=== PATIENT | male | born 1945 | race Caucasian/White ===

== ENCOUNTER 2016-12-17 15:11 | Emergency (ER) | payer MEDICARE, OTHER ==
[~2016-12-17 15:11] MED LIST: ACET325T9 PO; ASPI81TA2 PO; CIPR500T PO; DEXT15DR5 EACHEYE; LEVO500T38 PO; LORA0.5T96 PO; LOSA50TA6 PO; MULT-208 PO; MULT1TAB52 PO; NITR100C62 PO; OXYB5TAB7 PO; RANI150T6 PO; TAMS0.4C2 PO
[2016-12-17 15:52] VITALS: BP 135/90
[2016-12-17 17:06] LABS: BILIRUBIN,URINE NEGATIVE (NEG); GLUCOSE,URINE NEGATIVE (NEG); NITRITE,URINE NEGATIVE (NEG); PH,URINE 5.5; PROTEIN,URINE NEGATIVE (NEG-TRACE); UROBILINOGEN,URINE 0.2 mg/dL (0.2 mg/dL)
[2016-12-17 17:15] LABS: BACTERIA,URINE 0 /HPF (0-FEW); WBC,URINE 0 /HPF (0-4)
[2016-12-17] MEDS ORDERED: CIPR250T30 PO (17:28)
[2016-12-17] MEDS ORDERED: PHEN-318 PO (17:28)
--- NOTE | 2016-12-17 17:28 | PHYS DOC ---
Past Medical History Past Medical History: GERD, Hypertension, Other Additional Past Medical Histor: MR; BPH Past Surgical History: Other Additional Past Surgical Histo: hernia Alcohol Use: None Drug Use: None Adult General Chief Complaint Chief Complaint: URINARY RETENTION HPI HPI Patient is a 71 year old male who presents with complaint of urinary retention. Patient has history of enlarged prostate and intellectual disability. Patient states that since 4:00 this morning he has not been able to urinate. Patient brought to the emergency department from [facility] where he resides. Patient is accompanied by a director financial planning from the [facility]. The patient is currently taking Flomax and finasteride for treatment of enlarged prostate. Patient denies any fever. Patient states that he is having pain and distention in his abdomen. Despite taking medications patient states he has still been unable to urinate. [] Review of Systems Review of Systems Constitutional: Denies fever or chills [] Eyes: Denies change in visual acuity, redness, or eye pain [] HENT: Denies nasal congestion or sore throat [] Respiratory: Denies cough or shortness of breath [] Cardiovascular: No additional information not addressed in HPI [] GI: Abdominal pain, denies nausea, vomiting, or diarrhea [] : Urinary retention [] Musculoskeletal: Denies back pain or joint pain [] Integument: Denies rash or skin lesions [] Neurologic: Denies headache, focal weakness or sensory changes [] Allergies Allergies Allergies Coded Allergies Type Severity Reaction Last Updated Verified Cephalosporins Allergy Intermediate 07/13/15 Yes Penicillins Allergy Intermediate 07/13/15 Yes carbamazepine Allergy Intermediate 07/13/15 Yes meropenem Allergy Intermediate 07/12/15 Yes penicillamine Allergy Intermediate 07/13/15 Yes I S O L A T I O N *CONTACT* Allergy Unknown 07/11/15 Yes Physical Exam Physical Exam Constitutional: Alert, afebrile, appears in mild to moderate discomfort. [] HENT: Normocephalic, atraumatic, bilateral external ears normal, oropharynx moist, no oral exudates, nose normal. [] Eyes: PERRLA, EOMI, conjunctiva normal, no discharge. [] Neck: Normal range of motion, no tenderness, supple, no stridor. [] Cardiovascular:Heart rate regular rhythm, no murmur [] Lungs & Thorax: Bilateral breath sounds clear to auscultation [] Abdomen: Bowel sounds normal, mild lower abdominal distention, suprapubic tenderness to palpation, no pulsatile masses. [] Skin: Warm, dry, no erythema, no rash. [] Back: No tenderness, no CVA tenderness. [] Extremities: No tenderness, no cyanosis, no clubbing, ROM intact, no edema. [] Neurologic: Alert and oriented X 3, normal motor function, normal sensory function, no focal deficits noted. [] Current Patient Data Vital Signs Vital Signs Date Time Temp Pulse Resp B/P Pulse Ox O2 Delivery O2 Flow Rate FiO2 12/17/16 15:52 98.6 113 20 135/90 98 Face Tent 98.6 Lab Values Laboratory Tests Test 12/17/16 17:00 Urine Collection Type Unknown Urine Color Yellow Urine Clarity Clear Urine pH 5.5 Urine Specific [place] 1.025 Urine Protein Negativemg/dL (NEG-TRACE) Urine Glucose (UA) Negativemg/dL (NEG) Urine Ketones (Stick) 15mg/dL (NEG) Urine Blood Small (NEG) Urine Nitrite Negative (NEG) Urine Bilirubin Negative (NEG) Urine Urobilinogen Dipstick 0.2mg/dL (0.2 mg/dL) Urine Leukocyte Esterase Negative (NEG) Urine RBC 11-20/HPF (0-2) Urine WBC 0/HPF (0-4) Urine Bacteria 0/HPF (0-FEW) Urine Mucus Marked/LPF EKG EKG Not performed [] Radiology/Procedures Radiology/Procedures Limited bedside transabdominal ultrasound performed and interpreted by myself: Distended bladder, estimated volume 513 mL, no pelvic free fluid [] Course & Med Decision Making Course & Med Decision Making Pertinent Labs and Imaging studies reviewed. (See chart for details) Patient had a Ortega catheter placed by nursing staff in the emergency department with successful decompression of the bladder. Patient's urine does not reveal evidence of infection. The patient will be discharged with indwelling Ortega catheter at this time and recommended follow-up with Dr. Cole of urology in the next 5-7 days. Advised return emergency department for any worsening symptoms. Patient voiced understanding and in agreement with treatment plan. Dragon Disclaimer Dragon Disclaimer This electronic medical record was generated, in whole or in part, using a voice recognition dictation system. Departure Departure Impression: Primary Impression: Urinary retention Disposition: 01 HOME, SELF-CARE Condition: IMPROVED Referrals: KANU CHAMBERS (PCP) RACHAEL COLE DO Patient Instructions: Urinary Retention, Acute, Male Additional Instructions: Follow-up with Dr. Cole in 5-7 days. Return to the emergency department for any worsening symptoms. Scripts Phenazopyridine Hcl (Pyridium)200 Mg [id number] Mg PO TID #6 TAB Prov:LISA MORRIS MD 12/17/16 Ciprofloxacin Hcl (Cipro)250 Mg Tablet1 Tab PO BID #10 TAB Prov:LISA MORRIS MD 12/17/16 LISA MORRIS MD Dec 17, 2016 17:28
== END 2016-12-17 18:00 | disposition home or self-care (01) ==
LOC: ER 15:11
DX: R33.9 Retention of urine, unspecified (principal); K21.9 Gastro-esophageal reflux disease without esophagitis; I10 Essential (primary) hypertension; Z88.0 Allergy status to penicillin; Z88.8 Allergy status to other drugs, medicaments and biological substances; Z88.1 Allergy status to other antibiotic agents; Z91.041 Radiographic dye allergy status
CPT/HCPCS: 51702; 81001; 99284-25

== ENCOUNTER 2016-12-19 11:32 | Emergency (ER) | payer MEDICARE, OTHER ==
[~2016-12-19 11:32] MED LIST changes: +CIPR250T30 PO; +PHEN-318 PO
[2016-12-19 12:19] VITALS: BP 133/83
[2016-12-19 12:31] LABS: GLUCOSE,URINE NEGATIVE (NEG); PROTEIN,URINE >=300 mg/dL (NEG-TRACE)
[2016-12-19 12:42] LABS: BACTERIA,URINE FEW /HPF (0-FEW)
[2016-12-19 12:43] LABS: WBC,URINE 20-40 /HPF (0-4)
--- NOTE | 2016-12-19 12:58 | PHYS DOC ---
Past Medical History Past Medical History: GERD, Hypertension, Other Additional Past Medical Histor: MR; BPH Past Surgical History: Other Additional Past Surgical Histo: hernia Alcohol Use: None Drug Use: None Adult General Chief Complaint Chief Complaint: BLOOD IN URINE HPI HPI Patient is a 71 year old male presenting to the emergency department for evaluation of hematuria. Patient was seen 2 days ago in this emergency department for urinary retention and had a Ortega catheter placed. He has a history of intellectual disability and enlarged prostate for which he takes Flomax and finasteride. Dress Finisher says that he has been having increased tinge to his urine since the Ortega catheter was placed. He has not had any fevers chills nausea vomiting or other systemic symptoms. He is currently on ciprofloxacin and there is no microbiology report at this time. Dress Finisher reports that he has a follow up appointment with Dr. Prajapati the urologist at [facility] on December 25. Patient appears to be in no obvious distress with normal vital signs. Review of Systems Review of Systems Constitutional: Denies fever or chills [] GI: Denies abdominal pain, nausea, vomiting, bloody stools or diarrhea [] : Denies dysuria or hematuria [] Allergies Allergies Allergies Coded Allergies Type Severity Reaction Last Updated Verified Cephalosporins Allergy Intermediate 07/13/15 Yes Penicillins Allergy Intermediate 07/13/15 Yes carbamazepine Allergy Intermediate 07/13/15 Yes meropenem Allergy Intermediate 07/12/15 Yes penicillamine Allergy Intermediate 07/13/15 Yes I S O L A T I O N *CONTACT* Allergy Unknown 07/11/15 Yes Physical Exam Physical Exam Constitutional: Well developed, well nourished, no acute distress, non-toxic appearance. [] Cardiovascular:Heart rate regular rhythm, no murmur [] Lungs & Thorax: Bilateral breath sounds clear to auscultation [] Abdomen: Bowel sounds normal, soft, no tenderness, no masses, no pulsatile masses. [] Genitourinary exam reveals Ortega catheter in place with no erythema at the meatus. There is some penile edema distally on the shaft but there is no paraphimosis or phimosis and there is no obvious focal infection. Current Patient Data Vital Signs Vital Signs Date Time Temp Pulse Resp B/P Pulse Ox O2 Delivery O2 Flow Rate FiO2 12/19/16 12:19 83 16 133/83 98 Room Air 12/19/16 11:54 97.3 97.3 Lab Values Laboratory Tests Test 12/19/16 12:05 Urine Collection Type U cath Urine Color [place] Urine Clarity Clear Urine pH 5.0 Urine Specific [place] 1.030 Urine Protein >=300mg/dL (NEG-TRACE) Urine Glucose (UA) Negativemg/dL (NEG) Urine Ketones (Stick) mg/dL (NEG) Urine Blood (NEG) Urine Nitrite (NEG) Urine Bilirubin (NEG) Urine Urobilinogen Dipstick mg/dL (0.2 mg/dL) Urine Leukocyte Esterase (NEG) Urine RBC 11-20/HPF (0-2) Urine WBC 20-40/HPF (0-4) Urine Bacteria Few/HPF (0-FEW) Urine Mucus Mod/LPF EKG EKG [] Radiology/Procedures Radiology/Procedures [] Course & Med Decision Making Course & Med Decision Making Patient likely has urinary tract infection with possible prostatitis and he is urinating well into the Ortega catheter at this time. I do not see any reason to change the catheter as this is all likely irritation from having a Ortega placed and he is artery on antibiotics that are likely to be helpful pending the culture results. Encouraged composer teaching artist to keep the follow-up appointment and come back to the ER sooner with worsening pain fevers following emergent concerns. Dragon Disclaimer Dragon Disclaimer This electronic medical record was generated, in whole or in part, using a voice recognition dictation system. Departure Departure Impression: Primary Impression: Hematuria Additional Impression: UTI (lower urinary tract infection) Disposition: 01 HOME, SELF-CARE Condition: GOOD Referrals: KANU CHAMBERS (PCP) Patient Instructions: Hematuria, Adult Problem Qualifiers ROBERTO CARLOS WEAVER DO Dec 19, 2016 12:58
== END 2016-12-19 13:53 | disposition home or self-care (01) ==
LOC: ER 11:32
DX: N39.0 Urinary tract infection, site not specified (principal); N48.89 Other specified disorders of penis; K21.9 Gastro-esophageal reflux disease without esophagitis; I10 Essential (primary) hypertension; N40.0 Benign prostatic hyperplasia without lower urinary tract symptoms; Z88.0 Allergy status to penicillin; Z88.8 Allergy status to other drugs, medicaments and biological substances; Z88.1 Allergy status to other antibiotic agents; Z91.041 Radiographic dye allergy status
CPT/HCPCS: 81001; 87086; 99284

== ENCOUNTER → 2018-12-23 | Outpatient (CLI) | payer MEDICARE, OTHER ==
[~2018-12-23] MED LIST changes: +ASPI-630 PO; -ASPI81TA2 PO; -LEVO500T38 PO; +LEVO500T59 PO; +LOSA-73 PO; -LOSA50TA6 PO; +RANI-376 PO; -RANI150T6 PO
--- NOTE | 2018-12-23 15:59 | RAD ---
Chest, PA and Lateral: Technique: PA and lateral views of the chest were obtained. History: Cough. Comparison: 03/31/2015. Findings: Low lung volumes accentuates heart size and pulmonary vascularity. There are scattered patchy airspace opacities identified in the bilateral lungs likely atelectasis or infiltrates.Mild degenerative changes thoracic spine IMPRESSION: Scattered patchy airspace opacities identified in the bilateral lungs likely atelectasis or infiltrates. Electronically signed by: Kyree White MD (12/23/2018 3:56 PM) [facility]
== END | disposition home or self-care (01) ==
LOC: RAD 15:26
PROVIDERS: ATTEND Physician Assistant Medical
DX: R91.8 Other nonspecific abnormal finding of lung field (principal)
CPT/HCPCS: 71046

== ENCOUNTER 2019-04-06 16:58 | Inpatient (IN) | payer MEDICARE, OTHER ==
[~2019-04-06] VITALS: Ht 180.3 cm; Wt 80.4 kg
[2019-04-06 17:17] LABS: CREATININE ISTAT 0.9 mg/dL (0.5-1.4); HEMOGLOBIN ISTAT 14.3 g/dL (14-18); ION CA ISTAT 1.1 mmol/L (1.13-1.32); POTASSIUM ISTAT 4.2 mmol/L (3.5-5.0)
[2019-04-06 17:22] LABS: BASO % 0 % (0-3); EOS # 0.1 x10^3/uL (0.0-0.7); EOS % 1 % (0-3); HEMOGLOBIN 13.8 g/dL (13.0-17.5); LYMPH # 1.2 x10^3/uL (1.0-4.8); LYMPH % 13 % (24-48); MEAN CORPUSCULAR HEMOGLOBIN 31 pg (25-35); MEAN CORPUSCULAR HGB CONC 34 g/dL (31-37); MEAN CORPUSCULAR VOLUME 92 fL (79-100); MONO # 0.5 x10^3/uL (0.0-1.1); MONO % 6 % (0-9); NEUT # 7.7 x10^3/uL (1.8-7.7); NEUT % 81 % (31-73); PLATELET COUNT 231 x10^3/uL (140-400); RED BLOOD COUNT 4.48 x10^6/uL (4.30-5.70); RED CELL DISTRIBUTION WIDTH 14.8 % (11.5-14.5); WHITE BLOOD COUNT 9.6 x10^3/uL (4.0-11.0)
[2019-04-06 17:24] LABS: BILIRUBIN,URINE NEGATIVE (NEG); CLARITY,URINE CLEAR; COLOR,URINE YELLOW; NITRITE,URINE NEGATIVE (NEG); PROTEIN,URINE NEGATIVE (NEG-TRACE); UROBILINOGEN,URINE 0.2 mg/dL (0.2 mg/dL)
[2019-04-06] MEDS ORDERED: PROPOFOL 50 ML IV ONE ×2 (17:27→18:30)
[2019-04-06] MEDS ORDERED: ETOMIDATE 20 MG/10 ML VIAL. IV ONE (17:30)
[2019-04-06] MEDS ORDERED: SUCCINYLCHOLINE 200 MG/10 ML VIAL. IV ONE (17:30)
[2019-04-06 17:33] LABS: PROTHROMBIN TIME PATIENT 13.1 SEC (11.7-14.0)
[2019-04-06 17:37] LABS: CALCIUM 8.5 mg/dL (8.5-10.1); GFR 73.7; POTASSIUM 4.5 mmol/L (3.5-5.1)
[2019-04-06 17:38] LABS: BACTERIA,URINE FEW /HPF (0-FEW); RBC,URINE 0 /HPF (0-2); SQUAMOUS EPITHELIAL CELL,UR OCC /LPF
[2019-04-06 17:38] LABS: MAGNESIUM 2.2 mg/dL (1.8-2.4); PHOSPHORUS 3.7 mg/dL (2.6-4.7)
[2019-04-06 17:42] LABS: ALBUMIN 3.1 g/dL (3.4-5.0); TOTAL BILIRUBIN 0.4 mg/dL (0.2-1.0); TOTAL PROTEIN 6.3 g/dL (6.4-8.2)
[2019-04-06] MEDS ORDERED: CONTRAST GIVEN. MC PRN (17:45)
[2019-04-06] MEDS ORDERED: IOHEXOL 350 MG/ML 100 ML VIAL. IV ONE (17:45)
--- NOTE | 2019-04-06 17:55 | PHYS DOC ---
Past Medical History Past Medical History: GERD, Hypertension, Other Additional Past Medical Histor: MR; BPH (ROBERTO CARLOS PERES MD) Past Surgical History: Other Additional Past Surgical Histo: hernia (ROBERTO CARLOS PERES MD) Alcohol Use: None Drug Use: None (ROBERTO CARLOS PERES MD) Adult General Chief Complaint Chief Complaint: HYPOGLYCEMIA HPI HPI Patient is a 73-year-old male who presents to the emergency department via EMS, unresponsive. According to EMS, the patient lives in an assisted living facility, has an underlying history of mental retardation or autism, but normally is ambulatory and able to care for himself and do his own ADLs. According to report, the patient was last seen normal at about 8 AM this morning, when his medication was dropped off at his apartment, and he was administered his medication. Staff noticed this evening that his newspaper still outside his door, and went and found the patient unresponsive in bed. The patient is not able to provide any meaningful history, EMS found the patient with a blood glucose of 20, administered dextrose, via D10 IV, and upon arrival the patient's blood glucose was 311, but he did not have any meaningful improvement in his mental status. There is no external evidence of trauma. He is not a diabetic. (ROBERTO CARLOS PERES MD) Review of Systems Review of Systems To the patient's inability to provide a history. (ROBERTO CARLOS PERES MD) Current Medications Current Medications Current Medications Medications (Trade) Dose Ordered Sig/Jason Start Time Stop Time Status Last Admin Dose Admin Etomidate (Amidate) 20 mg 1X ONCE 04/06/19 17:30 04/06/19 17:31 DC 04/06/19 19:47 20 MG Info (CONTRAST GIVEN -- Rx MONITORING) 1 each PRN DAILY PRN 04/06/19 17:45 04/08/19 17:44 Iohexol (Omnipaque 350 Mg/ml) 75 ml 1X ONCE 04/06/19 17:45 04/06/19 17:46 DC 04/06/19 17:56 75 ML Naloxone HCl (Narcan) 2 mg 1X ONCE 04/06/19 18:45 04/06/19 18:46 DC 04/06/19 19:47 2 MG Propofol 50 ml @ 1.191 mls/ hr 1X ONCE 04/06/19 18:30 04/08/19 12:28 04/06/19 19:47 4.763 MLS/HR Sodium Chloride 1,000 ml @ 1,000 mls/hr 1X ONCE 04/06/19 18:00 04/06/19 18:59 DC 04/06/19 19:47 1,000 MLS/HR Succinylcholine Chloride (Anectine) 100 mg 1X ONCE 04/06/19 17:30 04/06/19 17:31 DC 04/06/19 19:47 100 MG (KIT FERRARI MD) Allergies Allergies Allergies Coded Allergies Type Severity Reaction Last Updated Verified Cephalosporins Allergy Intermediate 07/13/15 Yes Penicillins Allergy Intermediate 07/13/15 Yes carbamazepine Allergy Intermediate 07/13/15 Yes meropenem Allergy Intermediate 07/12/15 Yes penicillamine Allergy Intermediate 07/13/15 Yes I S O L A T I O N *CONTACT* Allergy Unknown 07/11/15 Yes (KIT FERRARI MD) Physical Exam Physical Exam PHYSICAL EXAM: CONSTITUTIONAL: Well developed, well nourished HEAD: normocephalic, atraumatic EENT: Pupils are 2 mm bilaterally and sluggishly reactive, Conjunctivae normal color, sclerae non-icteric; dry mucous membranes. NECK: Supple, non-tender; no meningismus. LUNGS: Lungs CTA, breathing even and unlabored. Normal air movement. Gag reflex is very weak. HEART: Regular rate and rhythm, no murmur CHEST: No deformity; non-tender ABDOMEN: The abdomen is soft, and non-tender, no masses or bruits. EXTREM: Normal ROM; no deformity, no calf tenderness. Normal pulses palpable in all extremities. There is no pedal edema. SKIN: No rash; no diaphoresis NEURO: Patient is nonresponsive, does withdraw to painful stimulus, with move ment in all 4 extremities, GCS is 6. (ROBERTO CARLOS PERES MD) Current Patient Data Vital Signs Vital Signs Date Time Temp Pulse Resp B/P (MAP) Pulse Ox O2 Delivery O2 Flow Rate FiO2 04/06/19 18:45 60 16 135/92 (106) 100 Ventilator 04/06/19 16:58 97.5 97.5 (KIT FERRARI MD) Lab Values Laboratory Tests Test 04/06/19 17:05 04/06/19 17:09 04/06/19 17:15 04/06/19 18:35 White Blood Count 9.6 x10^3/uL (4.0-11.0) Red Blood Count 4.48 x10^6/uL (4.30-5.70) Hemoglobin 13.8 g/dL (13.0-17.5) Hematocrit 41.0 % (39.0-53.0) Mean Corpuscular Volume 92 fL (79-100) Mean Corpuscular Hemoglobin 31 pg (25-35) Mean Corpuscular Hemoglobin Concent 34 g/dL (31-37) Red Cell Distribution Width 14.8 % (11.5-14.5) H Platelet Count 231 x10^3/uL (140-400) Neutrophils (%) (Auto) 81 % (31-73) H Lymphocytes (%) (Auto) 13 % (24-48) L Monocytes (%) (Auto) 6 % (0-9) Eosinophils (%) (Auto) 1 % (0-3) Basophils (%) (Auto) 0 % (0-3) Neutrophils # (Auto) 7.7 x10^3/uL (1.8-7.7) Lymphocytes # (Auto) 1.2 x10^3/uL (1.0-4.8) Monocytes # (Auto) 0.5 x10^3/uL (0.0-1.1) Eosinophils # (Auto) 0.1 x10^3/uL (0.0-0.7) Basophils # (Auto) 0.0 x10^3/uL (0.0-0.2) Prothrombin Time 13.1 SEC (11.7-14.0) Prothrombin Time INR 1.0 (0.8-1.1) Sodium Level 140 mmol/L (136-145) Potassium Level 4.5 mmol/L (3.5-5.1) Chloride Level 106 mmol/L (98-107) Carbon Dioxide Level 25 mmol/L (21-32) Anion Gap 9 (6-14) 15 mmol/L (6-14) H Blood Urea Nitrogen 19 mg/dL (8-26) Creatinine 1.0 mg/dL (0.7-1.3) Estimated GFR (Cockcroft-Gault) 73.7 BUN/Creatinine Ratio 19 (6-20) Glucose Level 313 mg/dL (70-99) H 305 mg/dL (70-99) H Lactic Acid Level 1.1 mmol/L (0.4-2.0) Calcium Level 8.5 mg/dL (8.5-10.1) Phosphorus Level 3.7 mg/dL (2.6-4.7) Magnesium Level 2.2 mg/dL (1.8-2.4) Total Bilirubin 0.4 mg/dL (0.2-1.0) Aspartate Amino Transferase (AST) 20 U/L (15-37) Alanine Aminotransferase (ALT) 25 U/L (16-63) Alkaline Phosphatase 93 U/L (46-116) Troponin I Quantitative < 0.017 ng/mL (0.000-0.055) PN-Sth-L-Type Natriuretic Peptide 1519 pg/mL (0-124) H Total Protein 6.3 g/dL (6.4-8.2) L Albumin 3.1 g/dL (3.4-5.0) L Albumin/Globulin Ratio 1.0 (1.0-1.7) Thyroid Stimulating Hormone (TSH) 1.041 uIU/mL (0.358-3.74) Free Thyroxine 0.66 ng/dL (0.76-1.46) L POC Hemoglobin 14.3 g/dL (14-18) POC Hematocrit 42 % (37-52) POC Sodium 138 mmol/L (135-145) POC Potassium 4.2 mmol/L (3.5-5.0) POC Chloride 105 mmol/L (98-110) POC Total CO2 23 mmol/L (23-32) POC Blood Urea Nitrogen 18 mg/dL (8-26) POC Creatinine 0.9 mg/dL (0.5-1.4) POC Ionized Calcium (Wilfred) 1.10 mmol/L (1.13-1.32) L Urine Collection Type Void Urine Color Yellow Urine Clarity Clear Urine pH 6.0 Urine Specific [place] 1.010 Urine Protein Negative mg/dL (NEG-TRACE) Urine Glucose (UA) 250 mg/dL (NEG) Urine Ketones (Stick) Negative mg/dL (NEG) Urine Blood Trace (NEG) Urine Nitrite Negative (NEG) Urine Bilirubin Negative (NEG) Urine Urobilinogen Dipstick 0.2 mg/dL (0.2 mg/dL) Urine Leukocyte Esterase Negative (NEG) Urine RBC 0 /HPF (0-2) Urine WBC 1-4 /HPF (0-4) Urine Squamous Epithelial Cells Occ /LPF Urine Bacteria Few /HPF (0-FEW) O2 Saturation 97 % (92-99) Arterial Blood pH 7.37 (7.35-7.45) Arterial Blood pCO2 at Patient Temp 36 mmHg (35-46) Arterial Blood pO2 at Patient Temp 102 mmHg (65-108) Arterial Blood HCO3 21 mmol/L (21-28) Arterial Blood Base Excess -4 mmol/L (-3-3) L FiO2 40 Laboratory Tests 04/06/19 17:05 Laboratory Tests 04/06/19 17:05 04/06/19 17:09 (KIT FERRARI MD) EKG EKG [Normal sinus rhythm at a rate of 69 beats for minute, leftward axis, right bundle-branch block, otherwise normal intervals, without acute ischemic ST/T changes. (ROBERTO CARLOS PERES MD) Radiology/Procedures Radiology/Procedures ER physician preliminary chest x-ray interpretation: Endotracheal tube and oral gastric tube in good position. No obvious infiltrate. (ROBERTO CARLOS PERES MD) Radiology/Procedures [facility] [address] [place], [place] [id number] IMAGING REPORT Signed PATIENT: ARI CM ACCOUNT: [id number] : 1945 LOCATION: ER AGE: 73 SEX: M EXAM STATUS: REG ER ORD. PHYSICIAN: ROBERTO CARLOS PERES MD REASON: AMS PROCEDURE: CT ANGIOGRAPHY HEAD AND NECK Exam: CTA head and neck INDICATION: Altered mental status TECHNIQUE: Sequential axial images through the head and neck obtained following the administration of 75 mL of Omni 350 IV contrast. Sagittal and coronal reformatted images were reconstructed from the axial data and reviewed. 3-D reformatted images were reconstructed from the axial data and reviewed. Comparisons: CT head without contrast same day FINDINGS: CTA neck: Visualized portions of the thoracic aorta are unremarkable. Right common carotid artery is patent without evidence of stenosis, occlusion or aneurysm. Intimal calcified atherosclerotic plaque at the origin of the right internal carotid artery without significant stenosis. Cervical segment of the right internal carotid artery is patent without evidence of stenosis, occlusion or aneurysm. Left common carotid artery is patent without evidence of stenosis, occlusion or aneurysm. Cervical segment of the left internal carotid artery is patent without evidence of stenosis, occlusion or aneurysm. Right vertebral artery is patent to the basilar confluence. Left vertebral artery is patent to the basilar confluence. Enteric tube and endotracheal tube are noted. Small bilateral pleural effusions with increased interstitial markings at the visualized lung apices. CTA HEAD: Mild calcified atherosclerotic plaque cavernous segment of the right internal carotid artery without significant stenosis. Right MCA is patent. Right GIOVANA is patent. Mild calcified atherosclerotic plaque at the cavernous segment of the left internal carotid artery without significant stenosis. Left MCA is patent. Left GIOVANA is patent. Basilar artery is patent without evidence of stenosis, occlusion or aneurysm. Major branch vessels arising off of the basilar artery are patent proximally. CINDER PITMAN's are patent bilaterally. IMPRESSION: 1. No large vessel occlusion. 2. Minimal patchy chronic plaque at the origin of the right internal carotid artery without significant stenosis. 3. Minimal calcified atherosclerotic plaque at the cavernous segments of the right and left internal carotid arteries bilaterally without significant stenosis. Exposure: One or more of the following in the visualized dose reduction techniques were utilized for this examination: 1. Automated exposure control 2. Adjustment of the MA and/or KV according to patient size 3. Use of iterative of reconstructive technique Electronically signed by: Mike Stark MD (04/06/2019 6:40 PM) [facility] DICTATED and SIGNED BY: MIKE STARK MD DATE: 04/06/19 1840 [facility] [address] [place] [address] IMAGING REPORT Signed PATIENT: ARI CM ACCOUNT: [id number] : 1945 LOCATION: ER AGE: 73 SEX: M EXAM STATUS: REG ER ORD. PHYSICIAN: ROBERTO CARLOS PEERS MD REASON: AMS PROCEDURE: CT HEAD WO CONTRAST Exam: CT head INDICATION: Altered mental status TECHNIQUE: Sequential axial images through the head were obtained without the administration of IV contrast. Comparisons: None FINDINGS: No focal parenchymal lesion or hemorrhage is identified. There is no midline shift or sulcal effacement. Patchy hypodensity noted within the periventricular white matter. The ventricular system is within normal limits without compression hydrocephalus. The basal cisterns are well maintained. No acute fracture. Mucosal thickening of the left maxillary sinus. IMPRESSION: 1. Patchy hypodensity within the periventricular white matter which is age indeterminate and may represent chronic ischemic change. This would be better evaluated with MRI. 2. Sinus disease described above. Exposure: One or more of the following in the visualized dose reduction techniques were utilized for this examination: 1. Automated exposure control 2. Adjustment of the MA and/or KV according to patient size Use of iterative of reconstructive technique Electronically signed by: Mike Stark MD (04/06/2019 6:31 PM) [facility] DICTATED and SIGNED BY: MIKE STARK MD DATE: 04/06/191830 [facility] [address] [place] [address] IMAGING REPORT Signed PATIENT: ARI CM ACCOUNT: [id number] : 1945 LOCATION: ER AGE: 73 SEX: M EXAM STATUS: REG ER ORD. PHYSICIAN: ROBERTO CARLOS PERES MD REASON: AMS PROCEDURE: PORTABLE CHEST 1V Exam: Chest one view INDICATION: Altered mental status TECHNIQUE: Frontal view of chest Comparisons: None FINDINGS: Endotracheal tube tip approximately 3 cm above the akil. Enteric tube traverses below the diaphragm distal tip in the left upper quadrant likely within stomach. Sidehole is likely the level of the GE junction. The cardiomediastinal silhouette and pulmonary vessels are within normal limits. The lung and pleural spaces are clear. IMPRESSION: 1. Lines and tubes described above. Enteric tube side hole likely at the level of the GE junction. Recommend advancement. 2. No acute pulmonary process Electronically signed by: Mike Stark MD (04/06/2019 6:41 PM) [facility] DICTATED and SIGNED BY: MIKE STARK MD DATE: 04/06/191840 (KIT FERRARI MD) Course & Med Decision Making Course & Med Decision Making Pertinent Labs and Imaging studies reviewed. (See chart for details) []6:00 PM: CT and final disposition are pending currently. Clinical suspicion is concerning for an acute stroke, with secondary hypoglycemia. The fact that the patient's mental status did not improve after blood glucose was corrected is concerning. Patient care will be turned over to Dr. Ferrari at shift change, report given, disposition pending. CRITICAL CARE TIME: [45] Minutes, excluding any procedures and care of other patients. INTUBATION NOTE: The patient was preoxygenated, initially, I attempted to intubate the patient without any medication, but the patient's vocal cords spasms around the endotracheal tube, preventing passage. The patient was preoxygenated again, and intubated without difficulty after administration of etomidate and succinylcholine, 20 mg and 100 mg, with a 7.5 endotracheal tube, with good color change on CO2 detector, breath sounds bilaterally, and chest rise. Chest x-ray showed good position of the endotracheal tube. (ROBERTO CARLOS PERES MD) Course & Med Decision Making Patient did not have large vessel disease without needs for transfer to another hospital. Patient requiring admission for further evaluation and treatment. Discussed with Dr. Menard who is in agreement with admission. Discussed findings and plan with patient and family, who acknowledge understanding and agreement. Dr. Menard presented to emergency room and evaluated the patient. 2204: Patient primary care physician is Dr. Reyes who admitted this patient to Dr. Moran. Dr. Duran was informed at [address] Queen on-call hospitalist was informed about change of plan at 2212. (KIT FERRARI MD) Dragon Disclaimer Dragon Disclaimer This electronic medical record was generated, in whole or in part, using a voice recognition dictation system. (ROBERTO CARLOS PERES MD) Departure Departure Impression: Primary Impression: Altered level of consciousness Additional Impression: Hyperglycemia Disposition: ADMITTED INPATIENT (at 1843) Admitting Physician: [facility] (Dr. Menard accepted admission at 1840) (KIT FERRARI MD) Condition: GUARDED Referrals: [facility] (PCP) Problem Qualifiers ROBERTO CARLOS PERES MD Apr 06, 2019 17:55 KIT FERRARI MD Apr 06, 2019 18:56
[2019-04-06] MEDS ORDERED: IV NORMAL SALINE 1000ML BAG 1,000 ML IV ONE (18:00)
--- NOTE | 2019-04-06 18:34 | RAD ---
Exam: CT head INDICATION: Altered mental status TECHNIQUE: Sequential axial images through the head were obtained without the administration of IV contrast. Comparisons: None FINDINGS: No focal parenchymal lesion or hemorrhage is identified. There is no midline shift or sulcal effacement. Patchy hypodensity noted within the periventricular white matter. The ventricular system is within normal limits without compression hydrocephalus. The basal cisterns are well maintained. No acute fracture. Mucosal thickening of the left maxillary sinus. IMPRESSION: 1. Patchy hypodensity within the periventricular white matter which is age indeterminate and may represent chronic ischemic change. This would be better evaluated with MRI. 2. Sinus disease described above. Exposure: One or more of the following in the visualized dose reduction techniques were utilized for this examination: 1. Automated exposure control 2. Adjustment of the MA and/or KV according to patient size Use of iterative of reconstructive technique Electronically signed by: Mike Torrez MD (04/06/2019 6:31 PM) [facility]
[2019-04-06] MEDS ORDERED: NALOXONE 2 MG/2 ML DISP.SYRIN. ONE (18:38)
[2019-04-06 18:42] LABS: BASE EXCESS ABG -4 mmol/L (-3-3); HCO3 ABG 21 mmol/L (21-28); PCO2 ABG 36 mmHg (35-46); PO2 ABG 102 mmHg (65-108); SAT O2 ABG 97 % (92-99)
--- NOTE | 2019-04-06 18:42 | RAD ---
Exam: CTA head and neck INDICATION: Altered mental status TECHNIQUE: Sequential axial images through the head and neck obtained following the administration of 75 mL of Omni 350 IV contrast. Sagittal and coronal reformatted images were reconstructed from the axial data and reviewed. 3-D reformatted images were reconstructed from the axial data and reviewed. Comparisons: CT head without contrast same day FINDINGS: CTA neck: Visualized portions of the thoracic aorta are unremarkable. Right common carotid artery is patent without evidence of stenosis, occlusion or aneurysm. Intimal calcified atherosclerotic plaque at the origin of the right internal carotid artery without significant stenosis. Cervical segment of the right internal carotid artery is patent without evidence of stenosis, occlusion or aneurysm. Left common carotid artery is patent without evidence of stenosis, occlusion or aneurysm. Cervical segment of the left internal carotid artery is patent without evidence of stenosis, occlusion or aneurysm. Right vertebral artery is patent to the basilar confluence. Left vertebral artery is patent to the basilar confluence. Enteric tube and endotracheal tube are noted. Small bilateral pleural effusions with increased interstitial markings at the visualized lung apices. CTA HEAD: Mild calcified atherosclerotic plaque cavernous segment of the right internal carotid artery without significant stenosis. Right MCA is patent. Right GIOVANA is patent. Mild calcified atherosclerotic plaque at the cavernous segment of the left internal carotid artery without significant stenosis. Left MCA is patent. Left GIOVANA is patent. Basilar artery is patent without evidence of stenosis, occlusion or aneurysm. Major branch vessels arising off of the basilar artery are patent proximally. LEGAL RESEARCHER's are patent bilaterally. IMPRESSION: 1. No large vessel occlusion. 2. Minimal patchy chronic plaque at the origin of the right internal carotid artery without significant stenosis. 3. Minimal calcified atherosclerotic plaque at the cavernous segments of the right and left internal carotid arteries bilaterally without significant stenosis. Exposure: One or more of the following in the visualized dose reduction techniques were utilized for this examination: 1. Automated exposure control 2. Adjustment of the MA and/or KV according to patient size 3. Use of iterative of reconstructive technique Electronically signed by: Mike Torrez MD (04/06/2019 6:40 PM) [facility]
--- NOTE | 2019-04-06 18:44 | RAD ---
Exam: Chest one view INDICATION: Altered mental status TECHNIQUE: Frontal view of chest Comparisons: None FINDINGS: Endotracheal tube tip approximately 3 cm above the akil. Enteric tube traverses below the diaphragm distal tip in the left upper quadrant likely within stomach. Sidehole is likely the level of the GE junction. The cardiomediastinal silhouette and pulmonary vessels are within normal limits. The lung and pleural spaces are clear. IMPRESSION: 1. Lines and tubes described above. Enteric tube side hole likely at the level of the GE junction. Recommend advancement. 2. No acute pulmonary process Electronically signed by: Mike Torrez MD (04/06/2019 6:41 PM) [facility]
[2019-04-06] MEDS ORDERED: NALOXONE 2 MG/2 ML DISP.SYRIN. IV ONE (18:45)
[2019-04-06 18:46] LABS: FIO2 ABG 40
--- NOTE | 2019-04-06 19:55 | PDOC1 ---
History and Physical Date of Admission Date of Admission DATE: 04/06/19 TIME: 19:49 Identification/Chief Complaint Chief Complaint low BS, unresponsive at SNU Source Source: Caregiver, Chart review, Patient History of Present Illness History of Present Illness 73 [address], SNU resident, currently intubated and sedated, was confused and hypoglycemic BS 30s at SNU, Ws intubated at our ER bec apparently did not have a gag. 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 Patchy hypodensity within the periventricular white matter which is age indeterminate and may represent chronic ischemic change. This would be better evaluated with MRI. 2. Sinus disease described above. CT Angio head: 1. No large vessel occlusion. 2. Minimal patchy chronic plaque at the origin of the right internal carotid artery without significant stenosis. 3. Minimal calcified atherosclerotic plaque at the cavernous segments of the right and left internal carotid arteries bilaterally without significant stenosis. NOw intuabted and sedated under propofol Past Medical History Cardiovascular: HTN GI: GERD Renal/: UTI, Benign prostatic enlarg., Hematuria, Other Past Surgical History Past Surgical History: Other Family History Family History: Family History Unknown Social History Smoke: No ALCOHOL: none Drugs: None Current Problem List Problem List Problems Medical Problems: (1) Altered level of consciousness Status: Acute (2) Hyperglycemia Status: Acute Current Medications Current Medications Current Medications Etomidate (Amidate) 20 mg 1X ONCE IV ; Start 04/06/19 at 17:30; Stop 04/06/19 at 17:31; Status DC Succinylcholine Chloride (Anectine) 100 mg 1X ONCE IV ; Start 04/06/19 at 17:30; Stop 04/06/19 at 17:31; Status DC Propofol 50 ml @ As Directed STK-MED ONCE IV ; Start 04/06/19 at 17:27; Stop 04/06/19 at 17:28; Status DC Iohexol (Omnipaque 350 Mg/ml) 75 ml 1X ONCE IV Last administered on 04/06/19at 17:56; Start 04/06/19 at 17:45; Stop 04/06/19 at 17:46; Status DC Info (CONTRAST GIVEN -- Rx MONITORING) 1 each PRN DAILY PRN MC SEE COMMENTS; Start 04/06/19 at 17:45; Stop 04/08/19 at 17:44 Sodium Chloride 1,000 ml @ 1,000 mls/hr 1X ONCE IV ; Start 04/06/19 at 18:00; Stop 04/06/19 at 18:59; Status DC Propofol 50 ml @ 1.191 mls/ hr 1X ONCE IV ; Start 04/06/19 at 18:30; Stop 04/08/19 at 12:28 Naloxone HCl (Narcan) 2 mg STK-MED ONCE .ROUTE ; Start 04/06/19 at 18:38; Stop 04/06/19 at 18:38; Status DC Naloxone HCl (Narcan) 2 mg 1X ONCE IV ; Start 04/06/19 at 18:45; Stop 04/06/19 at 18:46; Status DC Sodium Chloride 1,000 ml @ 125 mls/hr Q8H IV ; Start 04/06/19 at 19:00; Stop 04/07/19 at 18:59 Active Scripts Active Pyridium (Phenazopyridine Hcl) 200 Mg Tablet 200 Mg PO TID Cipro (Ciprofloxacin Hcl) 250 Mg Tablet 1 Tab PO BID Ciprofloxacin Hcl 500 Mg Tablet 500 Mg PO BID Reported Ativan (Lorazepam) 0.5 Mg Tablet 0.5 Mg PO HS Tamsulosin Hcl 0.4 Mg Cap.er.24h 0.4 Mg PO DAILY Multi-Day Vitamins (Multivitamin) 1 Each Tablet 1 Tab PO DAILY Tylenol (Acetaminophen) 325 Mg Tablet 2 Tab PO BID PRN Losartan Potassium 50 Mg Tablet 1 Tab PO DAILY Zantac (Ranitidine Hcl) 150 Mg Tablet 1 Tab PO DAILY Aspirin 81 Mg Tab.chew 1 Tab PO DAILY Allergies Allergies: Coded Allergies: Cephalosporins (Verified Allergy, Intermediate, 07/13/15) Penicillins (Verified Allergy, Intermediate, 07/13/15) carbamazepine (Verified Allergy, Intermediate, 07/13/15) meropenem (Verified Allergy, Intermediate, 07/12/15) BETA LACTAMS penicillamine (Verified Allergy, Intermediate, 07/13/15) I S O L A T I O N *CONTACT* (Verified Allergy, Unknown, 07/11/15) mrsa + ROS Review of System intubated, sedated Physical Exam General: No acute distress HEENT: Atraumatic, PERRLA Lungs: Clear to auscultation, Normal air movement Heart: S1S2, RRR, no thrills, no rubs, no gallops, no murmurs Cardiovascular: S1 Abdomen: Normal bowel sounds, Soft, No tenderness, No hepatosplenomegaly, No masses Male Genitals Exam: normal genitalia, normal prostate Rectal Exam: not examined Extremities: No clubbing, No cyanosis, No edema, Normal pulses, No te nderness/swelling Skin: No rashes, No breakdown, No significant lesion Neuro: Normal gait, Normal speech, Strength at 5/5 X4 ext, Normal tone, Sensation intact, Cranial nerves 3-12 NL, Reflexes 2+ Psych/Mental Status: Mental status NL, Mood NL Vitals Vitals Vital Signs Date Time Temp Pulse Resp B/P (MAP) Pulse Ox O2 Delivery O2 Flow Rate FiO2 04/06/19 19:32 100 Ventilator 04/06/19 19:15 58 16 108/66 (80) 04/06/19 16:58 97.5 97.5 Labs Labs Laboratory Tests Test 04/06/19 17:05 04/06/19 17:09 04/06/19 17:15 04/06/19 18:35 White Blood Count 9.6 x10^3/uL (4.0-11.0) Red Blood Count 4.48 x10^6/uL (4.30-5.70) Hemoglobin 13.8 g/dL (13.0-17.5) Hematocrit 41.0 % (39.0-53.0) Mean Corpuscular Volume 92 fL (79-100) Mean Corpuscular Hemoglobin 31 pg (25-35) Mean Corpuscular Hemoglobin Concent 34 g/dL (31-37) Red Cell Distribution Width 14.8 % (11.5-14.5) Platelet Count 231 x10^3/uL (140-400) Neutrophils (%) (Auto) 81 % (31-73) Lymphocytes (%) (Auto) 13 % (24-48) Monocytes (%) (Auto) 6 % (0-9) Eosinophils (%) (Auto) 1 % (0-3) Basophils (%) (Auto) 0 % (0-3) Neutrophils # (Auto) 7.7 x10^3/uL (1.8-7.7) Lymphocytes # (Auto) 1.2 x10^3/uL (1.0-4.8) Monocytes # (Auto) 0.5 x10^3/uL (0.0-1.1) Eosinophils # (Auto) 0.1 x10^3/uL (0.0-0.7) Basophils # (Auto) 0.0 x10^3/uL (0.0-0.2) Prothrombin Time 13.1 SEC (11.7-14.0) Prothromb Time International Ratio 1.0 (0.8-1.1) Sodium Level 140 mmol/L (136-145) Potassium Level 4.5 mmol/L (3.5-5.1) Chloride Level 106 mmol/L (98-107) Carbon Dioxide Level 25 mmol/L (21-32) Anion Gap 9 (6-14) 15 mmol/L (6-14) Blood Urea Nitrogen 19 mg/dL (8-26) Creatinine 1.0 mg/dL (0.7-1.3) Estimated GFR (Cockcroft-Gault) 73.7 BUN/Creatinine Ratio 19 (6-20) Glucose Level 313 mg/dL (70-99) 305 mg/dL (70-99) Lactic Acid Level 1.1 mmol/L (0.4-2.0) Calcium Level 8.5 mg/dL (8.5-10.1) Phosphorus Level 3.7 mg/dL (2.6-4.7) Magnesium Level 2.2 mg/dL (1.8-2.4) Total Bilirubin 0.4 mg/dL (0.2-1.0) Aspartate Amino Transf (AST/SGOT) 20 U/L (15-37) Alanine Aminotransferase (ALT/SGPT) 25 U/L (16-63) Alkaline Phosphatase 93 U/L (46-116) Troponin I Quantitative < 0.017 ng/mL (0.000-0.055) IN-Zmd-R-Type Natriuretic Peptide 1519 pg/mL (0-124) Total Protein 6.3 g/dL (6.4-8.2) Albumin 3.1 g/dL (3.4-5.0) Albumin/Globulin Ratio 1.0 (1.0-1.7) Thyroid Stimulating Hormone (TSH) 1.041 uIU/mL (0.358-3.74) Free Thyroxine 0.66 ng/dL (0.76-1.46) Bedside Hemoglobin 14.3 g/dL (14-18) Bedside Hematocrit 42 % (37-52) Bedside Sodium 138 mmol/L (135-145) Bedside Potassium 4.2 mmol/L (3.5-5.0) Bedside Chloride 105 mmol/L (98-110) Bedside Total CO2 23 mmol/L (23-32) Bedside Blood Urea Nitrogen 18 mg/dL (8-26) Bedside Creatinine 0.9 mg/dL (0.5-1.4) Bedside Ionized Calcium (Wilfred) 1.10 mmol/L (1.13-1.32) Urine Collection Type Void Urine Color Yellow Urine Clarity Clear Urine pH 6.0 Urine Specific [place] 1.010 Urine Protein Negative mg/dL (NEG-TRACE) Urine Glucose (UA) 250 mg/dL (NEG) Urine Ketones (Stick) Negative mg/dL (NEG) Urine Blood Trace (NEG) Urine Nitrite Negative (NEG) Urine Bilirubin Negative (NEG) Urine Urobilinogen Dipstick 0.2 mg/dL (0.2 mg/dL) Urine Leukocyte Esterase Negative (NEG) Urine RBC 0 /HPF (0-2) Urine WBC 1-4 /HPF (0-4) Urine Squamous Epithelial Cells Occ /LPF Urine Bacteria Few /HPF (0-FEW) O2 Saturation 97 % (92-99) Arterial Blood pH 7.37 (7.35-7.45) Arterial Blood pCO2 at Patient Temp 36 mmHg (35-46) Arterial Blood pO2 at Patient Temp 102 mmHg (65-108) Arterial Blood HCO3 21 mmol/L (21-28) Arterial Blood Base Excess -4 mmol/L (-3-3) FiO2 40 Laboratory Tests Test 04/06/19 17:05 04/06/19 17:09 04/06/19 17:15 04/06/19 18:35 White Blood Count 9.6 x10^3/uL (4.0-11.0) Red Blood Count 4.48 x10^6/uL (4.30-5.70) Hemoglobin 13.8 g/dL (13.0-17.5) Hematocrit 41.0 % (39.0-53.0) Mean Corpuscular Volume 92 fL (79-100) Mean Corpuscular Hemoglobin 31 pg (25-35) Mean Corpuscular Hemoglobin Concent 34 g/dL (31-37) Red Cell Distribution Width 14.8 % (11.5-14.5) Platelet Count 231 x10^3/uL (140-400) Neutrophils (%) (Auto) 81 % (31-73) Lymphocytes (%) (Auto) 13 % (24-48) Monocytes (%) (Auto) 6 % (0-9) Eosinophils (%) (Auto) 1 % (0-3) Basophils (%) (Auto) 0 % (0-3) Neutrophils # (Auto) 7.7 x10^3/uL (1.8-7.7) Lymphocytes # (Auto) 1.2 x10^3/uL (1.0-4.8) Monocytes # (Auto) 0.5 x10^3/uL (0.0-1.1) Eosinophils # (Auto) 0.1 x10^3/uL (0.0-0.7) Basophils # (Auto) 0.0 x10^3/uL (0.0-0.2) Prothrombin Time 13.1 SEC (11.7-14.0) Prothromb Time International Ratio 1.0 (0.8-1.1) Sodium Level 140 mmol/L (136-145) Potassium Level 4.5 mmol/L (3.5-5.1) Chloride Level 106 mmol/L (98-107) Carbon Dioxide Level 25 mmol/L (21-32) Anion Gap 9 (6-14) 15 mmol/L (6-14) Blood Urea Nitrogen 19 mg/dL (8-26) Creatinine 1.0 mg/dL (0.7-1.3) Estimated GFR (Cockcroft-Gault) 73.7 BUN/Creatinine Ratio 19 (6-20) Glucose Level 313 mg/dL (70-99) 305 mg/dL (70-99) Lactic Acid Level 1.1 mmol/L (0.4-2.0) Calcium Level 8.5 mg/dL (8.5-10.1) Phosphorus Level 3.7 mg/dL (2.6-4.7) Magnesium Level 2.2 mg/dL (1.8-2.4) Total Bilirubin 0.4 mg/dL (0.2-1.0) Aspartate Amino Transf (AST/SGOT) 20 U/L (15-37) Alanine Aminotransferase (ALT/SGPT) 25 U/L (16-63) Alkaline Phosphatase 93 U/L (46-116) Troponin I Quantitative < 0.017 ng/mL (0.000-0.055) MF-Knx-T-Type Natriuretic Peptide 1519 pg/mL (0-124) Total Protein 6.3 g/dL (6.4-8.2) Albumin 3.1 g/dL (3.4-5.0) Albumin/Globulin Ratio 1.0 (1.0-1.7) Thyroid Stimulating Hormone (TSH) 1.041 uIU/mL (0.358-3.74) Free Thyroxine 0.66 ng/dL (0.76-1.46) Bedside Hemoglobin 14.3 g/dL (14-18) Bedside Hematocrit 42 % (37-52) Bedside Sodium 138 mmol/L (135-145) Bedside Potassium 4.2 mmol/L (3.5-5.0) Bedside Chloride 105 mmol/L (98-110) Bedside Total CO2 23 mmol/L (23-32) Bedside Blood Urea Nitrogen 18 mg/dL (8-26) Bedside Creatinine 0.9 mg/dL (0.5-1.4) Bedside Ionized Calcium (Wilfred) 1.10 mmol/L (1.13-1.32) Urine Collection Type Void Urine Color Yellow Urine Clarity Clear Urine pH 6.0 Urine Specific [place] 1.010 Urine Protein Negative mg/dL (NEG-TRACE) Urine Glucose (UA) 250 mg/dL (NEG) Urine Ketones (Stick) Negative mg/dL (NEG) Urine Blood Trace (NEG) Urine Nitrite Negative (NEG) Urine Bilirubin Negative (NEG) Urine Urobilinogen Dipstick 0.2 mg/dL (0.2 mg/dL) Urine Leukocyte Esterase Negative (NEG) Urine RBC 0 /HPF (0-2) Urine WBC 1-4 /HPF (0-4) Urine Squamous Epithelial Cells Occ /LPF Urine Bacteria Few /HPF (0-FEW) O2 Saturation 97 % (92-99) Arterial Blood pH 7.37 (7.35-7.45) Arterial Blood pCO2 at Patient Temp 36 mmHg (35-46) Arterial Blood pO2 at Patient Temp 102 mmHg (65-108) Arterial Blood HCO3 21 mmol/L (21-28) Arterial Blood Base Excess -4 mmol/L (-3-3) FiO2 40 VTE Prophylaxis Ordered VTE Prophylaxis Devices: Yes VTE Pharmacological Prophylaxi: Yes Assessment/Plan Assessment/Plan HYPOGLYCEMIA causing MINIMAL responsiveness, intubated for airway protection (no gag apparently?) GERD, BPH, HTN - stable HYPOTENSION, post intubation, fluid responsive Inc AGAP (mild 15) NO UTI NO HCAP FUL CODE\ CTA head./neck: 1. No large vessel occlusion. 2. Minimal patchy chronic plaque at the origin of the right internal carotid artery without significant stenosis. 3. Minimal calcified atherosclerotic plaque at the cavernous segments of the right and left internal carotid arteries bilaterally without significant stenosis. PLAn: IVF, vent bundle. PULmo ICU bed, 2 mN Hopefully might be able to extubate really soon, ie tmr SSI mod dose MAy check [id number] NO need for neuro consult PPI and dvt in this vented pt Seen at ER NO family at bedside PAWAN CHERY MD Apr 06, 2019 19:55
[2019-04-06] MEDS ORDERED: DEXTROSE 50% 25 GM / 50ML DISP.SYRIN. IV PRN (20:00)
[2019-04-06] MEDS ORDERED: ACETAMINOPHEN 325 MG TABLET. PO PRN (20:00)
[2019-04-06] MEDS ORDERED: IV DEXTROSE 5% 250 ML BAG. IV PRN (20:00)
[2019-04-06] MEDS: LORazepam 0.5 MG TABLET PO SCH (21:00)
[2019-04-06 21:45] VITALS: BP 132/74
[2019-04-06 22:15] VITALS: BP 122/80
[2019-04-06 22:30] VITALS: BP 117/73
[2019-04-06 22:45] VITALS: BP 115/73
[2019-04-06 23:00] VITALS: BP 101/74
[2019-04-06] MEDS: PROPOFOL 100 ML IV PRN (23:00)
[2019-04-07] VITALS (24 sets, daily range): BP systolic 86–128; BP diastolic 61–79
[2019-04-07] MEDS ORDERED: PROPOFOL 100 ML IV ONE (01:11)
[2019-04-07] MEDS: IV NORMAL SALINE 1000ML BAG 1,000 ML IV SCH ×4 (01:15→17:20)
[2019-04-07] MEDS: ENOXAPARIN 40 MG/0.4 ML SYRINGE. SQ SCH ×2 (01:16→21:13)
--- NOTE | 2019-04-07 05:52 | EKG ---
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
[2019-04-07] MEDS: INSULIN LISPRO 300 UNITS/3 ML VIAL. SQ SCH ×4 (08:00→23:58)
[2019-04-07] MEDS: ASPIRIN CHEWABLE 81 MG TABLET. PO SCH (08:25)
[2019-04-07] MEDS: MULTIVITAMIN with MINERAL TABLET. PO SCH (08:25)
[2019-04-07] MEDS: TAMSULOSIN 0.4 MG CAP.ER.24H. PO SCH (08:25)
[2019-04-07] MEDS: PANTOPRAZOLE IV PUSH 40 MG VIAL. IVP SCH (08:25)
[2019-04-07 08:46] LABS: BASE EXCESS ABG -2 mmol/L (-3-3); HCO3 ABG 20 mmol/L (21-28); PCO2 ABG 26 mmHg (35-46); PO2 ABG 110 mmHg (65-108); SAT O2 ABG 98 % (92-99)
[2019-04-07 08:49] LABS: CALCIUM 7.9 mg/dL (8.5-10.1); CREATININE 0.9 mg/dL (0.7-1.3); GFR 82.9; POTASSIUM 3.6 mmol/L (3.5-5.1)
[2019-04-07 08:52] LABS: MAGNESIUM 1.9 mg/dL (1.8-2.4); PHOSPHORUS 2.9 mg/dL (2.6-4.7)
[2019-04-07 08:59] LABS: FIO2 ABG 40
[2019-04-07] MEDS: PROPOFOL 100 ML IV PRN ×3 (10:10→23:59)
[2019-04-07] MEDS ORDERED: ADENOSINE 6 MG/2 ML VIAL. IV ONE ×2 (11:20→11:30)
--- NOTE | 2019-04-07 11:27 | PDOC2 ---
CARDIAC CONSULT DATE OF CONSULT Date of Consult DATE: 04/07/19 TIME: 10:57 REASON FOR CONSULT Reason for Consult: SVT REFERRING PHYSICIAN Referring Physician: Sailaja SOURCE Source: Chart review HISTORY OF PRESENT ILLNESS HISTORY OF PRESENT ILLNESS This is a 74 yo male admitted for unresponsiveness. He resides in an assisted living facility and one of the staff went to his room and noted him on the bed unresponsive. EMS arrived and noted his BG at 20 and was given D50 but his mentation remains poor. Due to his poor mentation he was then intubated and placed on vent for airway protection. Upon admission he was noted with SVT with one episode in ICU lasting about 3 minutes per staff. I witnessed this and respo nded well with adenosine x1. No prior cardiac hx per chart review and no hx of diabetes or any medication that would promote hypoglycemia. Also no hx of VTE, CVA but significant for mental retardation and autism. PAST MEDICAL HISTORY Cardiovascular: HTN CENTRAL NERVOUS SYSTEM: Other (Mental retardation) GI: GERD Musculoskeletal: Osteoarthritis Renal/: UTI, Benign prostatic enlarg. PAST SURGICAL HISTORY Past Surgical History: Other (TURP; ligia fundoplication) FAMILY HISTORY Family History: Family History Unknown SOCIAL HISTORY Smoke: No ALCOHOL: none Drugs: None Lives: Alone (assited living) CURRENT MEDICATIONS CURRENT MEDICATIONS Current Medications Medications (Trade) Dose Ordered Sig/Jason Route PRN Reason Start Time Stop Time Status Last Admin Dose Admin Etomidate (Amidate) 20 mg 1X ONCE IV 04/06/19 17:30 04/06/19 17:31 DC 04/06/19 19:47 Succinylcholine Chloride (Anectine) 100 mg 1X ONCE IV 04/06/19 17:30 04/06/19 17:31 DC 04/06/19 19:47 Iohexol (Omnipaque 350 Mg/ml) 75 ml 1X ONCE IV 04/06/19 17:45 04/06/19 17:46 DC 04/06/19 17:56 Sodium Chloride 1,000 ml @ 1,000 mls/hr 1X ONCE IV 04/06/19 18:00 04/06/19 18:59 DC 04/06/19 19:47 Propofol 50 ml @ 1.191 mls/ hr 1X ONCE IV 04/06/19 18:30 04/08/19 12:28 04/06/19 19:47 Naloxone HCl (Narcan) 2 mg 1X ONCE IV 04/06/19 18:45 04/06/19 18:46 DC 04/06/19 19:47 Sodium Chloride 1,000 ml @ 125 mls/hr Q8H IV 04/06/19 19:00 04/07/19 18:59 04/07/19 08:28 Pantoprazole Sodium (PROTONIX VIAL for IV PUSH) 40 mg DAILYAC IVP 04/07/19 07:30 04/07/19 08:25 Enoxaparin Sodium (Lovenox 40mg Syringe) 40 mg Q24H SQ 04/06/19 21:00 04/07/19 01:17 Aspirin (Children'S Aspirin) 81 mg DAILY PO 04/07/19 09:00 04/07/19 08:25 Tamsulosin HCl (Flomax) 0.4 mg DAILY PO 04/07/19 09:00 04/07/19 08:25 Multivitamins (Thera M Plus) 1 tab DAILY PO 04/07/19 09:00 04/07/19 08:25 Propofol 100 ml @ 1.164 mls/ hr CONT PRN IV SEDATION 04/07/19 02:15 04/07/19 10:10 ALLERGIES ALLERGIES: Coded Allergies: Cephalosporins (Verified Allergy, Intermediate, 07/13/15) Penicillins (Verified Allergy, Intermediate, 07/13/15) carbamazepine (Verified Allergy, Intermediate, 07/13/15) meropenem (Verified Allergy, Intermediate, 07/12/15) BETA LACTAMS penicillamine (Verified Allergy, Intermediate, 07/13/15) I S O L A T I O N *CONTACT* (Verified Allergy, Unknown, 07/11/15) mrsa + ROS Review of System unreliable- intubated and vented PHYSICAL EXAM General: Other (sedated, intubated) HEENT: Atraumatic, Mucous membr. moist/pink Lungs: Clear to auscultation, Other (intubated with vent) Heart: Regular rate (SR), Normal S1, Normal S2, Other (2/6 systolic murmur to LLS border) Abdomen: Soft Extremities: No cyanosis, No edema Skin: No breakdown, No significant lesion Neuro: Other (sedated) MUSCULOSKELETAL: Osteoarthritic changes both hands VITALS/I&O VITALS/I&O: Vital Signs Date Time Temp Pulse Resp B/P (MAP) Pulse Ox O2 Delivery O2 Flow Rate FiO2 04/07/19 10:00 79 16 100/66 (77) 99 Ventilator 04/07/19 07:00 98.8 98.8 I & O 04/06/19 04/06/19 04/07/19 14:59 22:59 06:59 Intake Total 1000 ml 600 ml Output Total 150 ml 1350 ml Balance 850 ml -750 ml LABS Lab: Laboratory Tests Test 04/06/19 17:05 04/06/19 17:09 04/06/19 17:15 04/06/19 18:35 White Blood Count 9.6 x10^3/uL (4.0-11.0) Red Blood Count 4.48 x10^6/uL (4.30-5.70) Hemoglobin 13.8 g/dL (13.0-17.5) Hematocrit 41.0 % (39.0-53.0) Mean Corpuscular Volume 92 fL (79-100) Mean Corpuscular Hemoglobin 31 pg (25-35) Mean Corpuscular Hemoglobin Concent 34 g/dL (31-37) Red Cell Distribution Width 14.8 % (11.5-14.5) H Platelet Count 231 x10^3/uL (140-400) Neutrophils (%) (Auto) 81 % (31-73) H Lymphocytes (%) (Auto) 13 % (24-48) L Monocytes (%) (Auto) 6 % (0-9) Eosinophils (%) (Auto) 1 % (0-3) Basophils (%) (Auto) 0 % (0-3) Neutrophils # (Auto) 7.7 x10^3/uL (1.8-7.7) Lymphocytes # (Auto) 1.2 x10^3/uL (1.0-4.8) Monocytes # (Auto) 0.5 x10^3/uL (0.0-1.1) Eosinophils # (Auto) 0.1 x10^3/uL (0.0-0.7) Basophils # (Auto) 0.0 x10^3/uL (0.0-0.2) Prothrombin Time 13.1 SEC (11.7-14.0) Prothrombin Time INR 1.0 (0.8-1.1) Sodium Level 140 mmol/L (136-145) Potassium Level 4.5 mmol/L (3.5-5.1) Chloride Level 106 mmol/L (98-107) Carbon Dioxide Level 25 mmol/L (21-32) Anion Gap 9 (6-14) 15 mmol/L (6-14) H Blood Urea Nitrogen 19 mg/dL (8-26) Creatinine 1.0 mg/dL (0.7-1.3) Estimated GFR (Cockcroft-Gault) 73.7 BUN/Creatinine Ratio 19 (6-20) Glucose Level 313 mg/dL (70-99) H 305 mg/dL (70-99) H Lactic Acid Level 1.1 mmol/L (0.4-2.0) Calcium Level 8.5 mg/dL (8.5-10.1) Phosphorus Level 3.7 mg/dL (2.6-4.7) Magnesium Level 2.2 mg/dL (1.8-2.4) Total Bilirubin 0.4 mg/dL (0.2-1.0) Aspartate Amino Transferase (AST) 20 U/L (15-37) Alanine Aminotransferase (ALT) 25 U/L (16-63) Alkaline Phosphatase 93 U/L (46-116) Troponin I Quantitative < 0.017 ng/mL (0.000-0.055) PZ-Bau-W-Type Natriuretic Peptide 1519 pg/mL (0-124) H Total Protein 6.3 g/dL (6.4-8.2) L Albumin 3.1 g/dL (3.4-5.0) L Albumin/Globulin Ratio 1.0 (1.0-1.7) Thyroid Stimulating Hormone (TSH) 1.041 uIU/mL (0.358-3.74) Free Thyroxine 0.66 ng/dL (0.76-1.46) L POC Hemoglobin 14.3 g/dL (14-18) POC Hematocrit 42 % (37-52) POC Sodium 138 mmol/L (135-145) POC Potassium 4.2 mmol/L (3.5-5.0) POC Chloride 105 mmol/L (98-110) POC Total CO2 23 mmol/L (23-32) POC Blood Urea Nitrogen 18 mg/dL (8-26) POC Creatinine 0.9 mg/dL (0.5-1.4) POC Ionized Calcium (Wilfred) 1.10 mmol/L (1.13-1.32) L Urine Collection Type Void Urine Color Yellow Urine Clarity Clear Urine pH 6.0 Urine Specific [place] 1.010 Urine Protein Negative mg/dL (NEG-TRACE) Urine Glucose (UA) 250 mg/dL (NEG) Urine Ketones (Stick) Negative mg/dL (NEG) Urine Blood Trace (NEG) Urine Nitrite Negative (NEG) Urine Bilirubin Negative (NEG) Urine Urobilinogen Dipstick 0.2 mg/dL (0.2 mg/dL) Urine Leukocyte Esterase Negative (NEG) Urine RBC 0 /HPF (0-2) Urine WBC 1-4 /HPF (0-4) Urine Squamous Epithelial Cells Occ /LPF Urine Bacteria Few /HPF (0-FEW) O2 Saturation 97 % (92-99) Arterial Blood pH 7.37 (7.35-7.45) Arterial Blood pCO2 at Patient Temp 36 mmHg (35-46) Arterial Blood pO2 at Patient Temp 102 mmHg (65-108) Arterial Blood HCO3 21 mmol/L (21-28) Arterial Blood Base Excess -4 mmol/L (-3-3) L FiO2 40 Test 04/06/19 21:28 04/06/19 22:40 04/07/19 03:43 04/07/19 08:10 Glucose (Fingerstick) 73 mg/dL (70-99) 79 mg/dL (70-99) 92 mg/dL (70-99) Sodium Level 145 mmol/L (136-145) Potassium Level 3.6 mmol/L (3.5-5.1) Chloride Level 112 mmol/L (98-107) H Carbon Dioxide Level 23 mmol/L (21-32) Anion Gap 10 (6-14) Blood Urea Nitrogen 16 mg/dL (8-26) Creatinine 0.9 mg/dL (0.7-1.3) Estimated GFR (Cockcroft-Gault) 82.9 Glucose Level 103 mg/dL (70-99) H Calcium Level 7.9 mg/dL (8.5-10.1) L Phosphorus Level 2.9 mg/dL (2.6-4.7) Magnesium Level 1.9 mg/dL (1.8-2.4) Test 04/07/19 08:40 O2 Saturation 98 % (92-99) Arterial Blood pH 7.50 (7.35-7.45) H Arterial Blood pCO2 at Patient Temp 26 mmHg (35-46) L Arterial Blood pO2 at Patient Temp 110 mmHg (65-108) H Arterial Blood HCO3 20 mmol/L (21-28) L Arterial Blood Base Excess -2 mmol/L (-3-3) FiO2 40 Laboratory Tests 04/06/19 17:05 Laboratory Tests 04/06/19 17:05 04/06/19 17:09 04/07/19 08:10 ASSESSMENT/PLAN ASSESSMENT/PLAN 1. Acute respiratory failure: intubated/vent for airway protection 2. Metabolic encephalopathy: found unresponsive at facility with BG 20. Head CTA negative so far. 3. Suspect syncope with noted hypoglycemia: seizure is another possibility as hypoglycemia would induce this 4. Hypoglycemic reaction: no hx of DM 5. Hx of mental retardation 6. 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 No prior hx. Recommendations 1. Await TTE for further recommendation 2. Adenosine given and converted to SR. Start on low dose cardizem IR. Hold home losartan. No BB as this would mask hypoglycemia symptoms. 3. Supportive care. NELI MARSHALL [employer] ARCHITECT [employer] PLANNER Apr 07, 2019 11:27
--- NOTE | 2019-04-07 11:45 | NUR ---
1121 pt was in psvt at a rate of 150. stimulated pt with pain and verbal, but unable to self revert out of rhythm. Quita vergara seeing pt. pt given adenosine 6 mg iv rapidly via left ac saline lock. pt converted back to sr with pvc's rate in 80's. Cardiology to order po cardizem for pt.
--- NOTE | 2019-04-07 11:50 | PDOC ---
PULMONARY PROGRESS NOTES Vitals Vital Signs Date Time Temp Pulse Resp B/P (MAP) Pulse Ox O2 Delivery O2 Flow Rate FiO2 04/07/19 11:00 99.4 75 16 110/68 (82) 99 Ventilator 99.4 Cardiovascular: S1 Labs Laboratory Tests Test 04/06/19 17:05 04/06/19 17:09 04/06/19 17:15 04/06/19 18:35 White Blood Count 9.6 x10^3/uL (4.0-11.0) Red Blood Count 4.48 x10^6/uL (4.30-5.70) Hemoglobin 13.8 g/dL (13.0-17.5) Hematocrit 41.0 % (39.0-53.0) Mean Corpuscular Volume 92 fL (79-100) Mean Corpuscular Hemoglobin 31 pg (25-35) Mean Corpuscular Hemoglobin Concent 34 g/dL (31-37) Red Cell Distribution Width 14.8 % (11.5-14.5) Platelet Count 231 x10^3/uL (140-400) Neutrophils (%) (Auto) 81 % (31-73) Lymphocytes (%) (Auto) 13 % (24-48) Monocytes (%) (Auto) 6 % (0-9) Eosinophils (%) (Auto) 1 % (0-3) Basophils (%) (Auto) 0 % (0-3) Neutrophils # (Auto) 7.7 x10^3/uL (1.8-7.7) Lymphocytes # (Auto) 1.2 x10^3/uL (1.0-4.8) Monocytes # (Auto) 0.5 x10^3/uL (0.0-1.1) Eosinophils # (Auto) 0.1 x10^3/uL (0.0-0.7) Basophils # (Auto) 0.0 x10^3/uL (0.0-0.2) Prothrombin Time 13.1 SEC (11.7-14.0) Prothromb Time International Ratio 1.0 (0.8-1.1) Sodium Level 140 mmol/L (136-145) Potassium Level 4.5 mmol/L (3.5-5.1) Chloride Level 106 mmol/L (98-107) Carbon Dioxide Level 25 mmol/L (21-32) Anion Gap 9 (6-14) 15 mmol/L (6-14) Blood Urea Nitrogen 19 mg/dL (8-26) Creatinine 1.0 mg/dL (0.7-1.3) Estimated GFR (Cockcroft-Gault) 73.7 BUN/Creatinine Ratio 19 (6-20) Glucose Level 313 mg/dL (70-99) 305 mg/dL (70-99) Lactic Acid Level 1.1 mmol/L (0.4-2.0) Calcium Level 8.5 mg/dL (8.5-10.1) Phosphorus Level 3.7 mg/dL (2.6-4.7) Magnesium Level 2.2 mg/dL (1.8-2.4) Total Bilirubin 0.4 mg/dL (0.2-1.0) Aspartate Amino Transf (AST/SGOT) 20 U/L (15-37) Alanine Aminotransferase (ALT/SGPT) 25 U/L (16-63) Alkaline Phosphatase 93 U/L (46-116) Troponin I Quantitative < 0.017 ng/mL (0.000-0.055) PS-Tev-C-Type Natriuretic Peptide 1519 pg/mL (0-124) Total Protein 6.3 g/dL (6.4-8.2) Albumin 3.1 g/dL (3.4-5.0) Albumin/Globulin Ratio 1.0 (1.0-1.7) Thyroid Stimulating Hormone (TSH) 1.041 uIU/mL (0.358-3.74) Free Thyroxine 0.66 ng/dL (0.76-1.46) Bedside Hemoglobin 14.3 g/dL (14-18) Bedside Hematocrit 42 % (37-52) Bedside Sodium 138 mmol/L (135-145) Bedside Potassium 4.2 mmol/L (3.5-5.0) Bedside Chloride 105 mmol/L (98-110) Bedside Total CO2 23 mmol/L (23-32) Bedside Blood Urea Nitrogen 18 mg/dL (8-26) Bedside Creatinine 0.9 mg/dL (0.5-1.4) Bedside Ionized Calcium (Wilfred) 1.10 mmol/L (1.13-1.32) Urine Collection Type Void Urine Color Yellow Urine Clarity Clear Urine pH 6.0 Urine Specific Hammond 1.010 Urine Protein Negative mg/dL (NEG-TRACE) Urine Glucose (UA) 250 mg/dL (NEG) Urine Ketones (Stick) Negative mg/dL (NEG) Urine Blood Trace (NEG) Urine Nitrite Negative (NEG) Urine Bilirubin Negative (NEG) Urine Urobilinogen Dipstick 0.2 mg/dL (0.2 mg/dL) Urine Leukocyte Esterase Negative (NEG) Urine RBC 0 /HPF (0-2) Urine WBC 1-4 /HPF (0-4) Urine Squamous Epithelial Cells Occ /LPF Urine Bacteria Few /HPF (0-FEW) O2 Saturation 97 % (92-99) Arterial Blood pH 7.37 (7.35-7.45) Arterial Blood pCO2 at Patient Temp 36 mmHg (35-46) Arterial Blood pO2 at Patient Temp 102 mmHg (65-108) Arterial Blood HCO3 21 mmol/L (21-28) Arterial Blood Base Excess -4 mmol/L (-3-3) FiO2 40 Test 04/06/19 21:28 04/06/19 22:40 04/07/19 03:43 04/07/19 08:10 Glucose (Fingerstick) 73 mg/dL (70-99) 79 mg/dL (70-99) 92 mg/dL (70-99) Sodium Level 145 mmol/L (136-145) Potassium Level 3.6 mmol/L (3.5-5.1) Chloride Level 112 mmol/L (98-107) Carbon Dioxide Level 23 mmol/L (21-32) Anion Gap 10 (6-14) Blood Urea Nitrogen 16 mg/dL (8-26) Creatinine 0.9 mg/dL (0.7-1.3) Estimated GFR (Cockcroft-Gault) 82.9 Glucose Level 103 mg/dL (70-99) Calcium Level 7.9 mg/dL (8.5-10.1) Phosphorus Level 2.9 mg/dL (2.6-4.7) Magnesium Level 1.9 mg/dL (1.8-2.4) Test 04/07/19 08:40 04/07/19 11:27 O2 Saturation 98 % (92-99) Arterial Blood pH 7.50 (7.35-7.45) Arterial Blood pCO2 at Patient Temp 26 mmHg (35-46) Arterial Blood pO2 at Patient Temp 110 mmHg (65-108) Arterial Blood HCO3 20 mmol/L (21-28) Arterial Blood Base Excess -2 mmol/L (-3-3) FiO2 40 Glucose (Fingerstick) 91 mg/dL (70-99) Laboratory Tests Test 04/06/19 17:05 04/06/19 17:09 04/06/19 17:15 04/06/19 18:35 White Blood Count 9.6 x10^3/uL (4.0-11.0) Red Blood Count 4.48 x10^6/uL (4.30-5.70) Hemoglobin 13.8 g/dL (13.0-17.5) Hematocrit 41.0 % (39.0-53.0) Mean Corpuscular Volume 92 fL (79-100) Mean Corpuscular Hemoglobin 31 pg (25-35) Mean Corpuscular Hemoglobin Concent 34 g/dL (31-37) Red Cell Distribution Width 14.8 % (11.5-14.5) Platelet Count 231 x10^3/uL (140-400) Neutrophils (%) (Auto) 81 % (31-73) Lymphocytes (%) (Auto) 13 % (24-48) Monocytes (%) (Auto) 6 % (0-9) Eosinophils (%) (Auto) 1 % (0-3) Basophils (%) (Auto) 0 % (0-3) Neutrophils # (Auto) 7.7 x10^3/uL (1.8-7.7) Lymphocytes # (Auto) 1.2 x10^3/uL (1.0-4.8) Monocytes # (Auto) 0.5 x10^3/uL (0.0-1.1) Eosinophils # (Auto) 0.1 x10^3/uL (0.0-0.7) Basophils # (Auto) 0.0 x10^3/uL (0.0-0.2) Prothrombin Time 13.1 SEC (11.7-14.0) Prothromb Time International Ratio 1.0 (0.8-1.1) Sodium Level 140 mmol/L (136-145) Potassium Level 4.5 mmol/L (3.5-5.1) Chloride Level 106 mmol/L (98-107) Carbon Dioxide Level 25 mmol/L (21-32) Anion Gap 9 (6-14) 15 mmol/L (6-14) Blood Urea Nitrogen 19 mg/dL (8-26) Creatinine 1.0 mg/dL (0.7-1.3) Estimated GFR (Cockcroft-Gault) 73.7 BUN/Creatinine Ratio 19 (6-20) Glucose Level 313 mg/dL (70-99) 305 mg/dL (70-99) Lactic Acid Level 1.1 mmol/L (0.4-2.0) Calcium Level 8.5 mg/dL (8.5-10.1) Phosphorus Level 3.7 mg/dL (2.6-4.7) Magnesium Level 2.2 mg/dL (1.8-2.4) Total Bilirubin 0.4 mg/dL (0.2-1.0) Aspartate Amino Transf (AST/SGOT) 20 U/L (15-37) Alanine Aminotransferase (ALT/SGPT) 25 U/L (16-63) Alkaline Phosphatase 93 U/L (46-116) Troponin I Quantitative < 0.017 ng/mL (0.000-0.055) TD-Ecr-W-Type Natriuretic Peptide 1519 pg/mL (0-124) Total Protein 6.3 g/dL (6.4-8.2) Albumin 3.1 g/dL (3.4-5.0) Albumin/Globulin Ratio 1.0 (1.0-1.7) Thyroid Stimulating Hormone (TSH) 1.041 uIU/mL (0.358-3.74) Free Thyroxine 0.66 ng/dL (0.76-1.46) Bedside Hemoglobin 14.3 g/dL (14-18) Bedside Hematocrit 42 % (37-52) Bedside Sodium 138 mmol/L (135-145) Bedside Potassium 4.2 mmol/L (3.5-5.0) Bedside Chloride 105 mmol/L (98-110) Bedside Total CO2 23 mmol/L (23-32) Bedside Blood Urea Nitrogen 18 mg/dL (8-26) Bedside Creatinine 0.9 mg/dL (0.5-1.4) Bedside Ionized Calcium (Wilfred) 1.10 mmol/L (1.13-1.32) Urine Collection Type Void Urine Color Yellow Urine Clarity Clear Urine pH 6.0 Urine Specific Hammond 1.010 Urine Protein Negative mg/dL (NEG-TRACE) Urine Glucose (UA) 250 mg/dL (NEG) Urine Ketones (Stick) Negative mg/dL (NEG) Urine Blood Trace (NEG) Urine Nitrite Negative (NEG) Urine Bilirubin Negative (NEG) Urine Urobilinogen Dipstick 0.2 mg/dL (0.2 mg/dL) Urine Leukocyte Esterase Negative (NEG) Urine RBC 0 /HPF (0-2) Urine WBC 1-4 /HPF (0-4) Urine Squamous Epithelial Cells Occ /LPF Urine Bacteria Few /HPF (0-FEW) O2 Saturation 97 % (92-99) Arterial Blood pH 7.37 (7.35-7.45) Arterial Blood pCO2 at Patient Temp 36 mmHg (35-46) Arterial Blood pO2 at Patient Temp 102 mmHg (65-108) Arterial Blood HCO3 21 mmol/L (21-28) Arterial Blood Base Excess -4 mmol/L (-3-3) FiO2 40 Test 04/06/19 21:28 04/06/19 22:40 04/07/19 03:43 04/07/19 08:10 Glucose (Fingerstick) 73 mg/dL (70-99) 79 mg/dL (70-99) 92 mg/dL (70-99) Sodium Level 145 mmol/L (136-145) Potassium Level 3.6 mmol/L (3.5-5.1) Chloride Level 112 mmol/L (98-107) Carbon Dioxide Level 23 mmol/L (21-32) Anion Gap 10 (6-14) Blood Urea Nitrogen 16 mg/dL (8-26) Creatinine 0.9 mg/dL (0.7-1.3) Estimated GFR (Cockcroft-Gault) 82.9 Glucose Level 103 mg/dL (70-99) Calcium Level 7.9 mg/dL (8.5-10.1) Phosphorus Level 2.9 mg/dL (2.6-4.7) Magnesium Level 1.9 mg/dL (1.8-2.4) Test 04/07/19 08:40 04/07/19 11:27 O2 Saturation 98 % (92-99) Arterial Blood pH 7.50 (7.35-7.45) Arterial Blood pCO2 at Patient Temp 26 mmHg (35-46) Arterial Blood pO2 at Patient Temp 110 mmHg (65-108) Arterial Blood HCO3 20 mmol/L (21-28) Arterial Blood Base Excess -2 mmol/L (-3-3) FiO2 40 Glucose (Fingerstick) 91 mg/dL (70-99) Medications Active Scripts Medications Dose Route/Sig Max Daily Dose Days Date Category Pyridium (Phenazopyridine Hcl) 200 Mg Tablet 200 Mg PO TID 12/17/16 Rx Cipro (Ciprofloxacin Hcl) 250 Mg Tablet 1 Tab PO BID 12/17/16 Rx Ciprofloxacin Hcl 500 Mg Tablet 500 Mg PO BID 07/13/15 Rx Ativan (Lorazepam) 0.5 Mg Tablet 0.5 Mg PO HS 07/11/15 Reported Tamsulosin Hcl 0.4 Mg Cap.er.24h 0.4 Mg PO DAILY 05/08/15 Reported Multi-Day Vitamins (Multivitamin) 1 Each Tablet 1 Tab PO DAILY 04/17/15 Reported Tylenol (Acetaminophen) 325 Mg Tablet 2 Tab PO BID PRN 02/07/15 Reported Losartan Potassium 50 Mg Tablet 1 Tab PO DAILY 02/07/15 Reported Zantac (Ranitidine Hcl) 150 Mg Tablet 1 Tab PO DAILY 02/07/15 Reported Aspirin 81 Mg Tab.chew 1 Tab PO DAILY 02/07/15 Reported Impression . FULL NOTE DICTATED RESP FAILURE SEC TO MET ENCEPHALOPATHY HYPOGLYCEMIA WILL CONTINUE SUPPORT CARD CONSULTED THANKS RAKESH DICKINSON MD Apr 07, 2019 11:50
[2019-04-07] MEDS: dilTIAZem HCL 30 MG TABLET PO SCH ×2 (13:28→21:20)
[2019-04-07] MEDS: MINERAL OIL/PETROLATUM,WHITE OPHTH OINT 3.5GM TUBE. OU PRN (13:58)
--- NOTE | 2019-04-07 14:53 | CARD ---
MR#: [id number] Date of Study: 04/07/2019 Ordering Physician: NELI MARSHALL, Referring Physician: NELI MARSHALL, Tech: Felicitas Brennan APPROVED REPORT EXAM: Two-dimensional and M-mode echocardiogram with Doppler and color Doppler. Other Information Quality : Average INDICATION Superventricular Tachycardia, Sepsis RISK FACTORS Hypertension 2D DIMENSIONS Left Atrium(2D)3.7 (1.6-4.0cm)IVSd1.3 (0.7-1.1cm) Aortic Root(2D)3.0 (2.0-3.7cm)LVDd5.0 (3.9-5.9cm) LVOT Diameter2.1 (1.8-2.4cm)PWd1.3 (0.7-1.1cm) LVDs3.9 (2.5-4.0cm)FS (%) 21.6 % SV52.1 ml Aortic Valve AoV Peak Carlos Alberto.328.9cm/sAoV VTI74.7cm AO Peak GR.43.3mmHgLVOT VTI 15.91cm AO Mean GR.35mmHg Mitral Valve MV E Ttyztcjx18.2cm/sMV DECEL [id number] MV A Dyqgudja90.5cm/sE/A Ratio0.5 TDI Lateral E' P. V6.18cm/sMedial E' P. V4.76cm/s E/Lateral E'6.7E/Medial E'8.7 Tricuspid Valve TR P. Lrmqmxhz756td/sRAP [id number] TR Peak Gr.75shFpYZUH31agVg Pulmonary Vein S1 Dzewkiig33.2cm/sS2 Jfrfmwhq27.13cm/s D2 Ndxilkif76.1cm/sPVa [id number] LEFT VENTRICLE The left ventricle is normal size. There is mild concentric left ventricular hypertrophy. The left ve ntricular systolic function is normal and the ejection fraction is within normal range. The Ejection Fraction is 55-60%. There is normal LV segmental wall motion. Transmitral Doppler flow pattern is Gra de I-abnormal relaxation pattern. RIGHT VENTRICLE The right ventricle is normal size. There is normal right ventricular wall thickness. The right ventr icular systolic function is normal. ATRIA The left atrium size is normal. The right atrium size is normal. The interatrial septum is intact wit h no evidence for an atrial septal defect or patent foramen ovale as noted on 2-D or Doppler imaging. AORTIC VALVE The aortic valve is calcified and displays decreased opening. Doppler and Color Flow revealed mild ao rtic regurgitation. Calculated aortic maximum pressure gradient of 44 mmHg and mean pressure gradient of 35 mmHg. Doppler and color-flow analysis revealed moderate aortic stenosis. MITRAL VALVE The mitral valve is normal in structure and function. There is no evidence of mitral valve prolapse. There is no mitral valve stenosis. Doppler and Color-flow revealed trace mitral regurgitation. TRICUSPID VALVE The tricuspid valve is normal in structure and function. Doppler and Color Flow revealed trace tricus pid regurgitation with an estimated PAP of 30 mmHg. There is no tricuspid valve stenosis. PULMONIC VALVE The pulmonary valve is normal in structure and function. Doppler and Color Flow revealed mild pulmoni c valvular regurgitation. GREAT VESSELS The aortic root is normal in size. The IVC is normal in size and collapses >50% with inspiration. PERICARDIAL EFFUSION There is no evidence of significant pericardial effusion. Critical Notification Critical Value: No <Conclusion> The left ventricle is normal size. The left ventricular systolic function is normal and the ejection fraction is within normal range. The Ejection Fraction is 55-60%. There is mild concentric left ventricular hypertrophy. The aortic valve is calcified and displays decreased opening. Calculated aortic maximum pressure gradient of 44 mmHg and mean pressure gradient of 35 mmHg. Doppler and color-flow analysis revealed moderate aortic stenosis. Doppler and Color Flow revealed mild aortic regurgitation. Doppler and Color-flow revealed trace mitral regurgitation. Doppler and Color Flow revealed trace tricuspid regurgitation with an estimated PAP of 30 mmHg. Signed by : Thuan Bear MD Electronically Approved : 04/07/2019 14:52:44
--- NOTE | 2019-04-07 15:46 | PDOC ---
PROGRESS NOTES Subjective Subjective pt of dr Martin,transferred to my service today Objective Objective Vital Signs Date Time Temp Pulse Resp B/P (MAP) Pulse Ox O2 Delivery O2 Flow Rate FiO2 04/07/19 15:35 99 Ventilator 04/07/19 15:00 99.1 80 16 96/66 (76) 99.1 Intake and Output 04/07/19 07:00 Intake Total 1600 ml Output Total 1540 ml Balance 60 ml Intake IV Total 1600 ml Output Urine Total 1540 ml Physical Exam Physical Exam orally intubated On Vent and propofol sedation Abdomen: Soft Heart: Regular rate (SR), Normal S1, Normal S2, Other (2/6 systolic murmur to LLS border) Extremities: No cyanosis, No edema General: Other (sedated, intubated) HEENT: Atraumatic, Mucous membr. moist/pink Lungs: Clear to auscultation, Other (intubated with vent) MUSCULOSKELETAL: Osteoarthritic changes both hands Neuro: Other (sedated) Skin: No breakdown, No significant lesion COMMENT otto Diagnosis Problem List Problems Medical Problems: (1) Altered level of consciousness Status: Acute (2) BPH (benign prostatic hyperplasia) Status: Chronic (3) GERD (gastroesophageal reflux disease) Status: Chronic (4) HTN (hypertension) Status: Chronic (5) Hyperglycemia Status: Acute (6) Hypoglycemia Status: Acute Assessment Assessment Problems Medical Problems: (1) Altered level of consciousness Status: Acute (2) BPH (benign prostatic hyperplasia) Status: Chronic (3) GERD (gastroesophageal reflux disease) Status: Chronic (4) HTN (hypertension) Status: Chronic (5) Hyperglycemia Status: Acute (6) Hypoglycemia Status: Acute Assessment/Plan HYPOGLYCEMIA causing MINIMAL responsiveness, intubated for airway protection . GERD, BPH, HTN - stable HYPOTENSION, post intubation, responded to fluid . Seizures? PSVT FUL CODE\ CTA head./neck: 1. No large vessel occlusion. 2. Minimal patchy chronic plaque at the origin of the right internal carotid artery without significant stenosis. 3. Minimal calcified atherosclerotic plaque at the cavernous segments of the right and left internal carotid arteries bilaterally without significant stenosis. PLAn: On vent cardiology consult Neuro consult EEG? spoke with RN CTA noted no stroke or aneurysm Plan Plan of Care Problems Medical Problems: (1) Altered level of consciousness Status: Acute (2) BPH (benign prostatic hyperplasia) Status: Chronic (3) GERD (gastroesophageal reflux disease) Status: Chronic (4) HTN (hypertension) Status: Chronic (5) Hyperglycemia Status: Acute (6) Hypoglycemia Status: Acute Comment Review of Relevant I have reviewed the following items aden (where applicable) has been applied. Labs Laboratory Tests Test 04/06/19 17:05 04/06/19 17:09 04/06/19 17:15 04/06/19 18:35 White Blood Count 9.6 x10^3/uL (4.0-11.0) Red Blood Count 4.48 x10^6/uL (4.30-5.70) Hemoglobin 13.8 g/dL (13.0-17.5) Hematocrit 41.0 % (39.0-53.0) Mean Corpuscular Volume 92 fL (79-100) Mean Corpuscular Hemoglobin 31 pg (25-35) Mean Corpuscular Hemoglobin Concent 34 g/dL (31-37) Red Cell Distribution Width 14.8 % (11.5-14.5) Platelet Count 231 x10^3/uL (140-400) Neutrophils (%) (Auto) 81 % (31-73) Lymphocytes (%) (Auto) 13 % (24-48) Monocytes (%) (Auto) 6 % (0-9) Eosinophils (%) (Auto) 1 % (0-3) Basophils (%) (Auto) 0 % (0-3) Neutrophils # (Auto) 7.7 x10^3/uL (1.8-7.7) Lymphocytes # (Auto) 1.2 x10^3/uL (1.0-4.8) Monocytes # (Auto) 0.5 x10^3/uL (0.0-1.1) Eosinophils # (Auto) 0.1 x10^3/uL (0.0-0.7) Basophils # (Auto) 0.0 x10^3/uL (0.0-0.2) Prothrombin Time 13.1 SEC (11.7-14.0) Prothromb Time International Ratio 1.0 (0.8-1.1) Sodium Level 140 mmol/L (136-145) Potassium Level 4.5 mmol/L (3.5-5.1) Chloride Level 106 mmol/L (98-107) Carbon Dioxide Level 25 mmol/L (21-32) Anion Gap 9 (6-14) 15 mmol/L (6-14) Blood Urea Nitrogen 19 mg/dL (8-26) Creatinine 1.0 mg/dL (0.7-1.3) Estimated GFR (Cockcroft-Gault) 73.7 BUN/Creatinine Ratio 19 (6-20) Glucose Level 313 mg/dL (70-99) 305 mg/dL (70-99) Lactic Acid Level 1.1 mmol/L (0.4-2.0) Calcium Level 8.5 mg/dL (8.5-10.1) Phosphorus Level 3.7 mg/dL (2.6-4.7) Magnesium Level 2.2 mg/dL (1.8-2.4) Total Bilirubin 0.4 mg/dL (0.2-1.0) Aspartate Amino Transf (AST/SGOT) 20 U/L (15-37) Alanine Aminotransferase (ALT/SGPT) 25 U/L (16-63) Alkaline Phosphatase 93 U/L (46-116) Troponin I Quantitative < 0.017 ng/mL (0.000-0.055) SA-Ide-X-Type Natriuretic Peptide 1519 pg/mL (0-124) Total Protein 6.3 g/dL (6.4-8.2) Albumin 3.1 g/dL (3.4-5.0) Albumin/Globulin Ratio 1.0 (1.0-1.7) Thyroid Stimulating Hormone (TSH) 1.041 uIU/mL (0.358-3.74) Free Thyroxine 0.66 ng/dL (0.76-1.46) Bedside Hemoglobin 14.3 g/dL (14-18) Bedside Hematocrit 42 % (37-52) Bedside Sodium 138 mmol/L (135-145) Bedside Potassium 4.2 mmol/L (3.5-5.0) Bedside Chloride 105 mmol/L (98-110) Bedside Total CO2 23 mmol/L (23-32) Bedside Blood Urea Nitrogen 18 mg/dL (8-26) Bedside Creatinine 0.9 mg/dL (0.5-1.4) Bedside Ionized Calcium (Wilfred) 1.10 mmol/L (1.13-1.32) Urine Collection Type Void Urine Color Yellow Urine Clarity Clear Urine pH 6.0 Urine Specific [place] 1.010 Urine Protein Negative mg/dL (NEG-TRACE) Urine Glucose (UA) 250 mg/dL (NEG) Urine Ketones (Stick) Negative mg/dL (NEG) Urine Blood Trace (NEG) Urine Nitrite Negative (NEG) Urine Bilirubin Negative (NEG) Urine Urobilinogen Dipstick 0.2 mg/dL (0.2 mg/dL) Urine Leukocyte Esterase Negative (NEG) Urine RBC 0 /HPF (0-2) Urine WBC 1-4 /HPF (0-4) Urine Squamous Epithelial Cells Occ /LPF Urine Bacteria Few /HPF (0-FEW) O2 Saturation 97 % (92-99) Arterial Blood pH 7.37 (7.35-7.45) Arterial Blood pCO2 at Patient Temp 36 mmHg (35-46) Arterial Blood pO2 at Patient Temp 102 mmHg (65-108) Arterial Blood HCO3 21 mmol/L (21-28) Arterial Blood Base Excess -4 mmol/L (-3-3) FiO2 40 Test 04/06/19 21:28 04/06/19 22:40 04/07/19 03:43 04/07/19 08:10 Glucose (Fingerstick) 73 mg/dL (70-99) 79 mg/dL (70-99) 92 mg/dL (70-99) Sodium Level 145 mmol/L (136-145) Potassium Level 3.6 mmol/L (3.5-5.1) Chloride Level 112 mmol/L (98-107) Carbon Dioxide Level 23 mmol/L (21-32) Anion Gap 10 (6-14) Blood Urea Nitrogen 16 mg/dL (8-26) Creatinine 0.9 mg/dL (0.7-1.3) Estimated GFR (Cockcroft-Gault) 82.9 Glucose Level 103 mg/dL (70-99) Calcium Level 7.9 mg/dL (8.5-10.1) Phosphorus Level 2.9 mg/dL (2.6-4.7) Magnesium Level 1.9 mg/dL (1.8-2.4) Test 04/07/19 08:40 04/07/19 11:27 O2 Saturation 98 % (92-99) Arterial Blood pH 7.50 (7.35-7.45) Arterial Blood pCO2 at Patient Temp 26 mmHg (35-46) Arterial Blood pO2 at Patient Temp 110 mmHg (65-108) Arterial Blood HCO3 20 mmol/L (21-28) Arterial Blood Base Excess -2 mmol/L (-3-3) FiO2 40 Glucose (Fingerstick) 91 mg/dL (70-99) Medications Current Medications Acetaminophen (Tylenol) 650 mg PRN BID PRN PO PAIN; Start 04/06/19 at 20:00 Adenosine (Adenocard) 6 mg 1X ONCE IV Last administered on 04/07/19at 11:24; Start 04/07/19 at 11:30; Stop 04/07/19 at 11:31; Status DC Adenosine (Adenocard) 6 mg STK-MED ONCE IV ; Start 04/07/19 at 11:20; Stop 04/07/19 at 11:21; Status DC Aspirin (Children'S Aspirin) 81 mg DAILY PO Last administered on 04/07/19at 08:25; Start 04/07/19 at 09:00 Dextrose 250 ml PRN Q15MIN PRN IV SEE COMMENTS; Start 04/06/19 at 20:00 Dextrose (Dextrose 50%-Water Syringe) 12.5 gm PRN Q15MIN PRN IV SEE COMMENTS; Start 04/06/19 at 20:00 Diltiazem HCl (Cardizem) 30 mg Q8HRS PO Last administered on 04/07/19at 13:28; Start 04/07/19 at 12:00 Enoxaparin Sodium (Lovenox 40mg Syringe) 40 mg Q24H SQ Last administered on 04/07/19at 01:17; Start 04/06/19 at 21:00 Etomidate (Amidate) 20 mg 1X ONCE IV Last administered on 04/06/19at 19:47; Start 04/06/19 at 17:30; Stop 04/06/19 at 17:31; Status DC Info (CONTRAST GIVEN -- Rx MONITORING) 1 each PRN DAILY PRN MC SEE COMMENTS; Start 04/06/19 at 17:45; Stop 04/08/19 at 17:44 Insulin Human Lispro (HumaLOG) 0-7 UNITS Q6HRS SQ ; Start 04/07/19 at 18:00 Insulin Human Lispro (HumaLOG) 0-7 UNITS TIDWMEALS SQ ; Start 04/07/19 at 08:00; Stop 04/07/19 at 15:12; Status DC Iohexol (Omnipaque 350 Mg/ml) 75 ml 1X ONCE IV Last administered on 04/06/19 17:56; Start 04/06/19 at 17:45; Stop 04/06/19 at 17:46; Status DC Lorazepam (Ativan) 0.5 mg HS PO ; Start 04/06/19 at 21:00 Multi-Ingred Cream/Lotion/Oil/ Oint (Artificial Tears Eye Ointment) 1 valerie PRN Q1HR PRN OU DRY EYE Last administered on 04/07/19at 13:58; Start 04/07/19 at 11:15 Multivitamins (Thera M Plus) 1 tab DAILY PO Last administered on 04/07/19 08:25; Start 04/07/19 at 09:00 Naloxone HCl (Narcan) 2 mg 1X ONCE IV Last administered on 04/06/19 19:47; Start 04/06/19 at 18:45; Stop 04/06/19 at 18:46; Status DC Naloxone HCl (Narcan) 2 mg STK-MED ONCE .ROUTE ; Start 04/06/19 at 18:38; Stop 04/06/19 at 18:38; Status DC Pantoprazole Sodium (PROTONIX VIAL for IV PUSH) 40 mg DAILYAC IVP Last administered on 04/07/19at 08:25; Start 04/07/19 at 07:30 Propofol 50 ml @ 1.191 mls/ hr 1X ONCE IV Last administered on 04/06/19at 19:47; Start 04/06/19 at 18:30; Stop 04/08/19 at 12:28 Propofol 50 ml @ As Directed STK-MED ONCE IV ; Start 04/06/19 at 17:27; Stop 04/06/19 at 17:28; Status DC Propofol 100 ml @ 1.164 mls/ hr CONT PRN IV SEDATION Last administered on 04/07/19at 10:10; Start 04/07/19 at 02:15 Propofol 100 ml @ As Directed STK-MED ONCE IV ; Start 04/07/19 at 01:11; Stop 04/07/19 at 01:11; Status DC Sodium Chloride 1,000 ml @ 125 mls/hr Q8H IV Last administered on 04/07/19at 08:28; Start 04/06/19 at 19:00; Stop 04/07/19 at 18:59 Sodium Chloride 1,000 ml @ 1,000 mls/hr 1X ONCE IV Last administered on 04/06/19at 19:47; Start 04/06/19 at 18:00; Stop 04/06/19 at 18:59; Status DC Succinylcholine Chloride (Anectine) 100 mg 1X ONCE IV Last administered on 04/06/19at 19:47; Start 04/06/19 at 17:30; Stop 04/06/19 at 17:31; Status DC Tamsulosin HCl (Flomax) 0.4 mg DAILY PO Last administered on 04/07/19at 08:25; Start 04/07/19 at 09:00 Vitals/I & O Vital Sign - Last 24 Hours 04/06/19 04/06/19 04/06/19 04/06/19 16:58 17:10 17:32 17:44 Temp 97.5 97.5 Pulse 83 78 66 Resp 16 16 16 B/P (MAP) 171/83 (112) 132/88 (103) 106/71 (83) Pulse Ox 99 100 100 100 O2 Delivery Room Air Ventilator Ventilator Ventilator 04/06/19 04/06/19 04/06/19 04/06/19 17:51 18:02 18:13 18:15 Pulse 64 60 64 62 Resp 16 16 16 B/P (MAP) 105/71 (82) 115/71 (86) 139/76 (97) 139/76 (97) Pulse Ox 100 100 100 100 O2 Delivery Ventilator Ventilator Ventilator Ventilator 04/06/19 04/06/19 04/06/19 04/06/19 18:23 18:30 18:33 18:45 Pulse 62 64 60 60 Resp 16 16 16 B/P (MAP) 138/83 (101) 146/83 (104) 142/86 (104) 135/92 (106) Pulse Ox 100 100 100 100 O2 Delivery Ventilator Ventilator Ventilator Ventilator 04/06/19 04/06/19 04/06/19 04/06/19 19:00 19:15 19:32 20:00 Pulse 59 58 56 Resp 16 16 16 B/P (MAP) 122/72 (89) 108/66 (80) 103/67 (79) Pulse Ox 100 100 100 O2 Delivery Ventilator Ventilator Ventilator Ventilator 04/06/19 04/06/19 04/06/19 04/06/19 21:00 21:35 21:45 22:00 Temp 97.6 97.6 Pulse 56 58 68 Resp 16 16 15 B/P (MAP) 104/69 (81) 132/74 (93) Pulse Ox 100 100 100 100 O2 Delivery Ventilator Ventilator Ventilator Ventilator 04/06/19 04/06/19 04/06/19 04/06/19 22:15 22:30 22:45 23:00 Pulse 62 64 64 64 Resp 16 15 16 16 B/P (MAP) 122/80 (94) 117/73 (88) 115/73 (87) 101/74 (83) Pulse Ox 100 100 100 100 O2 Delivery Ventilator Ventilator Ventilator Ventilator 04/06/19 04/06/19 04/07/19 04/07/19 23:15 23:40 00:00 01:00 Temp 97.8 97.8 Pulse 64 76 Resp 16 22 B/P (MAP) 94/69 (77) 106/71 (83) Pulse Ox 100 100 100 O2 Delivery Mechanical Ventilator Ventilator Ventilator Ventilator 04/07/19 04/07/19 04/07/19 04/07/19 02:00 03:00 03:29 04:00 Temp 98.0 98.0 Pulse 75 75 73 Resp 16 16 16 B/P (MAP) 86/68 (74) 99/71 (80) 97/73 (81) Pulse Ox 100 100 100 100 O2 Delivery Ventilator Ventilator Ventilator Ventilator 04/07/19 04/07/19 04/07/19 04/07/19 04:00 05:00 05:53 06:00 Pulse 77 77 Resp 19 19 B/P (MAP) 122/77 (92) 120/61 (80) Pulse Ox 100 100 100 O2 Delivery Mechanical Ventilator Ventilator Ventilator Ventilator 04/07/19 04/07/19 04/07/19 04/07/19 07:00 08:00 08:00 08:30 Temp 98.8 98.8 Pulse 99 77 Resp 16 16 B/P (MAP) 96/70 (79) 97/74 (82) Pulse Ox 99 99 99 O2 Delivery Ventilator Mechanical Ventilator Ventilator Ventilator 04/07/19 04/07/19 04/07/19 04/07/19 09:00 09:04 10:00 11:00 Temp 99.4 99.4 Pulse 82 79 75 Resp 16 16 16 B/P (MAP) 102/68 (79) 100/66 (77) 110/68 (82) Pulse Ox 99 100 99 99 O2 Delivery Ventilator Ventilator Ventilator Ventilator 04/07/19 04/07/19 04/07/19 04/07/19 11:50 12:00 12:00 13:00 Pulse 79 82 Resp 16 16 B/P (MAP) 106/66 (79) 107/68 (81) Pulse Ox 99 99 99 O2 Delivery Ventilator Mechanical Ventilator Ventilator Ventilator 04/07/19 04/07/19 04/07/19 04/07/19 13:28 13:59 15:00 15:35 Temp 99.1 99.1 Pulse 82 84 80 Resp 18 16 B/P (MAP) 107/68 104/67 (79) 96/66 (76) Pulse Ox 99 99 99 O2 Delivery Ventilator Ventilator Ventilator Intake and Output 04/06/19 04/06/19 04/07/19 15:00 23:00 07:00 Intake Total 1000 ml 600 ml Output Total 250 ml 1290 ml Balance 750 ml -690 ml ROSALVA GOODWIN MD Apr 07, 2019 15:46
--- NOTE | 2019-04-07 17:09 | PDOC2 ---
NEUROLOGY CONSULT Date of Admission Date of Admission DATE: 04/07/19 TIME: 16:46 Reason for Consult Reason for Consult: IMPRESSION: Metabolic encephalopathy. Respiratory failure. Seizure or seizure like episode, provoked likely. Hypoglycemia, glucose level 20. Hyperglycemia, glucose level 350. DM. HTN. Intellectual disability. RECOMMENDATIONS/PLAN: Life support in ICU. Treat medical diseases. EEG. Lab: see orders. Ativan 1 mg IV PRN q4h seizure. Keppra 500 mg IV q12h if has further seizures. HISTORY OF PRESENT ILLNESS This is a 74-y-old male patient who is a resident of [facility] with above listed diseases and intellectual disability was found by the staff in the bed unresponsive. EMS arrived and noted his glucose level was at 20, so he was administrated D50 but his mentation remains poor. He was then intubated to secure airway due to respiratory distress/failure and he was brought to the ER of [facility]. Upon admission he was noted with SVT in ICU lasting about 3 minutes. Adenosine x1 was given. Neurology was requested for consultation for a seizure or seizure like episode. He was reportedly to have vague history of seizure in the past, but not AEDs. His HCT and CTA are unremarkable. PAST MEDICAL HISTORY Cardiovascular: HTN CENTRAL NERVOUS SYSTEM: Mental retardation. GI: GERD Musculoskeletal: Osteoarthritis Renal/: UTI, Benign prostatic enlargement. PAST SURGICAL HISTORY TURP; ligia fundoplication. FAMILY HISTORY No information is available at this time. SOCIAL HISTORY Smoke: No ALCOHOL: none Drugs: None Lives: Alone (assited living) ALLERGIES Coded Allergies: Cephalosporins (Verified Allergy, Intermediate, 07/13/15) Penicillins (Verified Allergy, Intermediate, 07/13/15) carbamazepine (Verified Allergy, Intermediate, 07/13/15) meropenem (Verified Allergy, Intermediate, 07/12/15) BETA LACTAMS penicillamine (Verified Allergy, Intermediate, 07/13/15) I S O L A T I O N *CONTACT* (Verified Allergy, Unknown, 07/11/15), mrsa + MEDICATIONS: Refer to MAR REVIEW OF SYSTEMS: Constitutional: No malnutrition, weight loss, cachexia. Head: No traumatic brain injury. Skin: No edema, or rash. Ear: No infection. Eyes: No vision loss or color blindness. Nose: No bleeding or purulent discharges. Hearing: No hearing decrease. Neck: No injury. Cardiac: HTN. Pulmonary: No COPD. GI: No GI ulcer, GI bleeding. Urinary/genital: UTI. Endocrinologic: Diabetes Mellitus? Skeletomuscular: No muscular atrophy, deformity. Neurological: see HP. Psychiatric: Denies drug use/abuse. Otherwise, not [id number] review of systems. PHYSICAL EXAMINATION: General appearance is in acute distress. HEENT: Normocephalic and nontraumatic. Eyes, nose, ears, and throat are unremarkable. Neck is supple. No lymphadenopathy. No crepitus. Cardiovascular: S1, S2, PAC appreciated. Pulmonary: On vent. Abdomen: Bowel sounds are positive. Extremities: No rash, lesions, or edema. NEUROLOGICAL EXAMINATION: Unresponsive. On vent. Sedated. Not oriented to time, place and person. PERRL. EOMI not elicited. CN: no focal findings. Muscle tone: Decreased. Muscle strength: No movements to stimuli. DTR: 0-1 Plantar reflex: No response bilaterally Gait: Unable to walk at the present time. Sensory exam: no response. Not able to access cerebellar signs. F-T-N test not performed due to unresponsiveness. Current Medications Current Medications Current Medications Etomidate (Amidate) 20 mg 1X ONCE IV Last administered on 04/06/19 19:47; Start 04/06/19 at 17:30; Stop 04/06/19 at 17:31; Status DC Succinylcholine Chloride (Anectine) 100 mg 1X ONCE IV Last administered on 04/06/19 19:47; Start 04/06/19 at 17:30; Stop 04/06/19 at 17:31; Status DC Propofol 50 ml @ As Directed STK-MED ONCE IV ; Start 04/06/19 at 17:27; Stop 04/06/19 at 17:28; Status DC Iohexol (Omnipaque 350 Mg/ml) 75 ml 1X ONCE IV Last administered on 04/06/19at 17:56; Start 04/06/19 at 17:45; Stop 04/06/19 at 17:46; Status DC Info (CONTRAST GIVEN -- Rx MONITORING) 1 each PRN DAILY PRN MC SEE COMMENTS; Start 04/06/19 at 17:45; Stop 04/08/19 at 17:44 Sodium Chloride 1,000 ml @ 1,000 mls/hr 1X ONCE IV Last administered on 04/06/19at 19:47; Start 04/06/19 at 18:00; Stop 04/06/19 at 18:59; Status DC Propofol 50 ml @ 1.191 mls/ hr 1X ONCE IV Last administered on 04/06/19 19:47; Start 04/06/19 at 18:30; Stop 04/08/19 at 12:28 Naloxone HCl (Narcan) 2 mg STK-MED ONCE .ROUTE ; Start 04/06/19 at 18:38; Stop 04/06/19 at 18:38; Status DC Naloxone HCl (Narcan) 2 mg 1X ONCE IV Last administered on 04/06/19 19:47; Start 04/06/19 at 18:45; Stop 04/06/19 at 18:46; Status DC Sodium Chloride 1,000 ml @ 125 mls/hr Q8H IV Last administered on 04/07/19 08:28; Start 04/06/19 at 19:00; Stop 04/07/19 at 18:59 Pantoprazole Sodium (PROTONIX VIAL for IV PUSH) 40 mg DAILYAC IVP Last administered on 04/07/19 08:25; Start 04/07/19 at 07:30 Enoxaparin Sodium (Lovenox 40mg Syringe) 40 mg Q24H SQ Last administered on 04/07/19at 01:17; Start 04/06/19 at 21:00 Acetaminophen (Tylenol) 650 mg PRN BID PRN PO PAIN; Start 04/06/19 at 20:00 Aspirin (Children'S Aspirin) 81 mg DAILY PO Last administered on 04/07/19 08:25; Start 04/07/19 at 09:00 Lorazepam (Ativan) 0.5 mg HS PO ; Start 04/06/19 at 21:00 Tamsulosin HCl (Flomax) 0.4 mg DAILY PO Last administered on 04/07/19 08:25; Start 04/07/19 at 09:00 Multivitamins (Thera M Plus) 1 tab DAILY PO Last administered on 04/07/19at 08:25; Start 04/07/19 at 09:00 Insulin Human Lispro (HumaLOG) 0-7 UNITS TIDWMEALS SQ ; Start 04/07/19 at 08:00; Stop 04/07/19 at 15:12; Status DC Dextrose (Dextrose 50%-Water Syringe) 12.5 gm PRN Q15MIN PRN IV SEE COMMENTS; Start 04/06/19 at 20:00 Dextrose 250 ml PRN Q15MIN PRN IV SEE COMMENTS; Start 04/06/19 at 20:00 Propofol 100 ml @ As Directed STK-MED ONCE IV ; Start 04/07/19 at 01:11; Stop 04/07/19 at 01:11; Status DC Propofol 100 ml @ 1.164 mls/ hr CONT PRN IV SEDATION Last administered on 04/07/19at 10:10; Start 04/07/19 at 02:15 Multi-Ingred Cream/Lotion/Oil/ Oint (Artificial Tears Eye Ointment) 1 valerie PRN Q1HR PRN OU DRY EYE Last administered on 04/07/19at 13:58; Start 04/07/19 at 11:15 Adenosine (Adenocard) 6 mg STK-MED ONCE IV ; Start 04/07/19 at 11:20; Stop 04/07/19 at 11:21; Status DC Adenosine (Adenocard) 6 mg 1X ONCE IV Last administered on 04/07/19at 11:24; Start 04/07/19 at 11:30; Stop 04/07/19 at 11:31; Status DC Diltiazem HCl (Cardizem) 30 mg Q8HRS PO Last administered on 04/07/19at 13:28; Start 04/07/19 at 12:00 Insulin Human Lispro (HumaLOG) 0-7 UNITS Q6HRS SQ ; Start 04/07/19 at 18:00 Active Scripts Active Pyridium (Phenazopyridine Hcl) 200 Mg Tablet 200 Mg PO TID Cipro (Ciprofloxacin Hcl) 250 Mg Tablet 1 Tab PO BID Ciprofloxacin Hcl 500 Mg Tablet 500 Mg PO BID Reported Ativan (Lorazepam) 0.5 Mg Tablet 0.5 Mg PO HS Tamsulosin Hcl 0.4 Mg Cap.er.24h 0.4 Mg PO DAILY Multi-Day Vitamins (Multivitamin) 1 Each Tablet 1 Tab PO DAILY Tylenol (Acetaminophen) 325 Mg Tablet 2 Tab PO BID PRN Losartan Potassium 50 Mg Tablet 1 Tab PO DAILY Zantac (Ranitidine Hcl) 150 Mg Tablet 1 Tab PO DAILY Aspirin 81 Mg Tab.chew 1 Tab PO DAILY Allergies Allergies: Allergies Coded Allergies Type Severity Reaction Last Updated Verified Cephalosporins Allergy Intermediate 07/13/15 Yes Penicillins Allergy Intermediate 07/13/15 Yes carbamazepine Allergy Intermediate 07/13/15 Yes meropenem Allergy Intermediate 07/12/15 Yes penicillamine Allergy Intermediate 07/13/15 Yes I S O L A T I O N *CONTACT* Allergy Unknown 07/11/15 Yes ROS Review of System The patient denies any associated fevers, chills, headache, ear pain, rhinorrhea, sore throat, stiff neck, productive cough, chest pain, shortness of breath, back or flank pain, abdominal pain, nausea, vomiting, diarrhea, constipation, dysuria, rash, numbness, weakness, tingling, incontinence, difficulty ambulating, or diaphoresis. Physical Exam Physical Exam General: Well developed, well nourished, no acute distress, well appearing HEENT: Pupils equally round and reactive to light, EOMI, no discharge, normal conjunctiva Neck: Supple, no nuchal rigidity, no JVD, trachea midline, no tenderness Cardiac: RRR, no murmurs, no gallops, no rubs Chest/Lungs: CTAB, no wheeze, no rhonchi, no crackles Abdomen: soft, non-distended, no guarding, no peritoneal signs, non-tender Back: No tenderness Extremities: no edema, pulses intact, non-tender,capillary refill <3 sec bilateral upper and lower extremities, Neuro: Alert and oriented x 4, no focal deficits, normal speech Vitals Vitals: Vital Signs Date Time Temp Pulse Resp B/P (MAP) Pulse Ox O2 Delivery O2 Flow Rate FiO2 04/07/19 16:08 80 16 97/66 (76) 100 Ventilator 04/07/19 15:00 99.1 99.1 Labs Labs Laboratory Tests Test 04/06/19 17:05 04/06/19 17:09 04/06/19 17:15 04/06/19 18:35 White Blood Count 9.6 x10^3/uL (4.0-11.0) Red Blood Count 4.48 x10^6/uL (4.30-5.70) Hemoglobin 13.8 g/dL (13.0-17.5) Hematocrit 41.0 % (39.0-53.0) Mean Corpuscular Volume 92 fL (79-100) Mean Corpuscular Hemoglobin 31 pg (25-35) Mean Corpuscular Hemoglobin Concent 34 g/dL (31-37) Red Cell Distribution Width 14.8 % (11.5-14.5) Platelet Count 231 x10^3/uL (140-400) Neutrophils (%) (Auto) 81 % (31-73) Lymphocytes (%) (Auto) 13 % (24-48) Monocytes (%) (Auto) 6 % (0-9) Eosinophils (%) (Auto) 1 % (0-3) Basophils (%) (Auto) 0 % (0-3) Neutrophils # (Auto) 7.7 x10^3/uL (1.8-7.7) Lymphocytes # (Auto) 1.2 x10^3/uL (1.0-4.8) Monocytes # (Auto) 0.5 x10^3/uL (0.0-1.1) Eosinophils # (Auto) 0.1 x10^3/uL (0.0-0.7) Basophils # (Auto) 0.0 x10^3/uL (0.0-0.2) Prothrombin Time 13.1 SEC (11.7-14.0) Prothromb Time International Ratio 1.0 (0.8-1.1) Sodium Level 140 mmol/L (136-145) Potassium Level 4.5 mmol/L (3.5-5.1) Chloride Level 106 mmol/L (98-107) Carbon Dioxide Level 25 mmol/L (21-32) Anion Gap 9 (6-14) 15 mmol/L (6-14) Blood Urea Nitrogen 19 mg/dL (8-26) Creatinine 1.0 mg/dL (0.7-1.3) Estimated GFR (Cockcroft-Gault) 73.7 BUN/Creatinine Ratio 19 (6-20) Glucose Level 313 mg/dL (70-99) 305 mg/dL (70-99) Lactic Acid Level 1.1 mmol/L (0.4-2.0) Calcium Level 8.5 mg/dL (8.5-10.1) Phosphorus Level 3.7 mg/dL (2.6-4.7) Magnesium Level 2.2 mg/dL (1.8-2.4) Total Bilirubin 0.4 mg/dL (0.2-1.0) Aspartate Amino Transf (AST/SGOT) 20 U/L (15-37) Alanine Aminotransferase (ALT/SGPT) 25 U/L (16-63) Alkaline Phosphatase 93 U/L (46-116) Troponin I Quantitative < 0.017 ng/mL (0.000-0.055) JH-Icy-L-Type Natriuretic Peptide 1519 pg/mL (0-124) Total Protein 6.3 g/dL (6.4-8.2) Albumin 3.1 g/dL (3.4-5.0) Albumin/Globulin Ratio 1.0 (1.0-1.7) Thyroid Stimulating Hormone (TSH) 1.041 uIU/mL (0.358-3.74) Free Thyroxine 0.66 ng/dL (0.76-1.46) Bedside Hemoglobin 14.3 g/dL (14-18) Bedside Hematocrit 42 % (37-52) Bedside Sodium 138 mmol/L (135-145) Bedside Potassium 4.2 mmol/L (3.5-5.0) Bedside Chloride 105 mmol/L (98-110) Bedside Total CO2 23 mmol/L (23-32) Bedside Blood Urea Nitrogen 18 mg/dL (8-26) Bedside Creatinine 0.9 mg/dL (0.5-1.4) Bedside Ionized Calcium (Wilfred) 1.10 mmol/L (1.13-1.32) Urine Collection Type Void Urine Color Yellow Urine Clarity Clear Urine pH 6.0 Urine Specific [place] 1.010 Urine Protein Negative mg/dL (NEG-TRACE) Urine Glucose (UA) 250 mg/dL (NEG) Urine Ketones (Stick) Negative mg/dL (NEG) Urine Blood Trace (NEG) Urine Nitrite Negative (NEG) Urine Bilirubin Negative (NEG) Urine Urobilinogen Dipstick 0.2 mg/dL (0.2 mg/dL) Urine Leukocyte Esterase Negative (NEG) Urine RBC 0 /HPF (0-2) Urine WBC 1-4 /HPF (0-4) Urine Squamous Epithelial Cells Occ /LPF Urine Bacteria Few /HPF (0-FEW) O2 Saturation 97 % (92-99) Arterial Blood pH 7.37 (7.35-7.45) Arterial Blood pCO2 at Patient Temp 36 mmHg (35-46) Arterial Blood pO2 at Patient Temp 102 mmHg (65-108) Arterial Blood HCO3 21 mmol/L (21-28) Arterial Blood Base Excess -4 mmol/L (-3-3) FiO2 40 Test 04/06/19 21:28 04/06/19 22:40 04/07/19 03:43 04/07/19 08:10 Glucose (Fingerstick) 73 mg/dL (70-99) 79 mg/dL (70-99) 92 mg/dL (70-99) Sodium Level 145 mmol/L (136-145) Potassium Level 3.6 mmol/L (3.5-5.1) Chloride Level 112 mmol/L (98-107) Carbon Dioxide Level 23 mmol/L (21-32) Anion Gap 10 (6-14) Blood Urea Nitrogen 16 mg/dL (8-26) Creatinine 0.9 mg/dL (0.7-1.3) Estimated GFR (Cockcroft-Gault) 82.9 Glucose Level 103 mg/dL (70-99) Calcium Level 7.9 mg/dL (8.5-10.1) Phosphorus Level 2.9 mg/dL (2.6-4.7) Magnesium Level 1.9 mg/dL (1.8-2.4) Test 04/07/19 08:40 04/07/19 11:27 O2 Saturation 98 % (92-99) Arterial Blood pH 7.50 (7.35-7.45) Arterial Blood pCO2 at Patient Temp 26 mmHg (35-46) Arterial Blood pO2 at Patient Temp 110 mmHg (65-108) Arterial Blood HCO3 20 mmol/L (21-28) Arterial Blood Base Excess -2 mmol/L (-3-3) FiO2 40 Glucose (Fingerstick) 91 mg/dL (70-99) Laboratory Tests Test 04/06/19 17:05 04/06/19 17:09 04/06/19 17:15 04/06/19 18:35 White Blood Count 9.6 x10^3/uL (4.0-11.0) Red Blood Count 4.48 x10^6/uL (4.30-5.70) Hemoglobin 13.8 g/dL (13.0-17.5) Hematocrit 41.0 % (39.0-53.0) Mean Corpuscular Volume 92 fL (79-100) Mean Corpuscular Hemoglobin 31 pg (25-35) Mean Corpuscular Hemoglobin Concent 34 g/dL (31-37) Red Cell Distribution Width 14.8 % (11.5-14.5) Platelet Count 231 x10^3/uL (140-400) Neutrophils (%) (Auto) 81 % (31-73) Lymphocytes (%) (Auto) 13 % (24-48) Monocytes (%) (Auto) 6 % (0-9) Eosinophils (%) (Auto) 1 % (0-3) Basophils (%) (Auto) 0 % (0-3) Neutrophils # (Auto) 7.7 x10^3/uL (1.8-7.7) Lymphocytes # (Auto) 1.2 x10^3/uL (1.0-4.8) Monocytes # (Auto) 0.5 x10^3/uL (0.0-1.1) Eosinophils # (Auto) 0.1 x10^3/uL (0.0-0.7) Basophils # (Auto) 0.0 x10^3/uL (0.0-0.2) Prothrombin Time 13.1 SEC (11.7-14.0) Prothromb Time International Ratio 1.0 (0.8-1.1) Sodium Level 140 mmol/L (136-145) Potassium Level 4.5 mmol/L (3.5-5.1) Chloride Level 106 mmol/L (98-107) Carbon Dioxide Level 25 mmol/L (21-32) Anion Gap 9 (6-14) 15 mmol/L (6-14) Blood Urea Nitrogen 19 mg/dL (8-26) Creatinine 1.0 mg/dL (0.7-1.3) Estimated GFR (Cockcroft-Gault) 73.7 BUN/Creatinine Ratio 19 (6-20) Glucose Level 313 mg/dL (70-99) 305 mg/dL (70-99) Lactic Acid Level 1.1 mmol/L (0.4-2.0) Calcium Level 8.5 mg/dL (8.5-10.1) Phosphorus Level 3.7 mg/dL (2.6-4.7) Magnesium Level 2.2 mg/dL (1.8-2.4) Total Bilirubin 0.4 mg/dL (0.2-1.0) Aspartate Amino Transf (AST/SGOT) 20 U/L (15-37) Alanine Aminotransferase (ALT/SGPT) 25 U/L (16-63) Alkaline Phosphatase 93 U/L (46-116) Troponin I Quantitative < 0.017 ng/mL (0.000-0.055) MK-Bjg-V-Type Natriuretic Peptide 1519 pg/mL (0-124) Total Protein 6.3 g/dL (6.4-8.2) Albumin 3.1 g/dL (3.4-5.0) Albumin/Globulin Ratio 1.0 (1.0-1.7) Thyroid Stimulating Hormone (TSH) 1.041 uIU/mL (0.358-3.74) Free Thyroxine 0.66 ng/dL (0.76-1.46) Bedside Hemoglobin 14.3 g/dL (14-18) Bedside Hematocrit 42 % (37-52) Bedside Sodium 138 mmol/L (135-145) Bedside Potassium 4.2 mmol/L (3.5-5.0) Bedside Chloride 105 mmol/L (98-110) Bedside Total CO2 23 mmol/L (23-32) Bedside Blood Urea Nitrogen 18 mg/dL (8-26) Bedside Creatinine 0.9 mg/dL (0.5-1.4) Bedside Ionized Calcium (Wilfred) 1.10 mmol/L (1.13-1.32) Urine Collection Type Void Urine Color Yellow Urine Clarity Clear Urine pH 6.0 Urine Specific [place] 1.010 Urine Protein Negative mg/dL (NEG-TRACE) Urine Glucose (UA) 250 mg/dL (NEG) Urine Ketones (Stick) Negative mg/dL (NEG) Urine Blood Trace (NEG) Urine Nitrite Negative (NEG) Urine Bilirubin Negative (NEG) Urine Urobilinogen Dipstick 0.2 mg/dL (0.2 mg/dL) Urine Leukocyte Esterase Negative (NEG) Urine RBC 0 /HPF (0-2) Urine WBC 1-4 /HPF (0-4) Urine Squamous Epithelial Cells Occ /LPF Urine Bacteria Few /HPF (0-FEW) O2 Saturation 97 % (92-99) Arterial Blood pH 7.37 (7.35-7.45) Arterial Blood pCO2 at Patient Temp 36 mmHg (35-46) Arterial Blood pO2 at Patient Temp 102 mmHg (65-108) Arterial Blood HCO3 21 mmol/L (21-28) Arterial Blood Base Excess -4 mmol/L (-3-3) FiO2 40 Test 8/13/19 21:28 04/06/19 22:40 04/07/19 03:43 04/07/19 08:10 Glucose (Fingerstick) 73 mg/dL (70-99) 79 mg/dL (70-99) 92 mg/dL (70-99) Sodium Level 145 mmol/L (136-145) Potassium Level 3.6 mmol/L (3.5-5.1) Chloride Level 112 mmol/L (98-107) Carbon Dioxide Level 23 mmol/L (21-32) Anion Gap 10 (6-14) Blood Urea Nitrogen 16 mg/dL (8-26) Creatinine 0.9 mg/dL (0.7-1.3) Estimated GFR (Cockcroft-Gault) 82.9 Glucose Level 103 mg/dL (70-99) Calcium Level 7.9 mg/dL (8.5-10.1) Phosphorus Level 2.9 mg/dL (2.6-4.7) Magnesium Level 1.9 mg/dL (1.8-2.4) Test 04/07/19 08:40 04/07/19 11:27 O2 Saturation 98 % (92-99) Arterial Blood pH 7.50 (7.35-7.45) Arterial Blood pCO2 at Patient Temp 26 mmHg (35-46) Arterial Blood pO2 at Patient Temp 110 mmHg (65-108) Arterial Blood HCO3 20 mmol/L (21-28) Arterial Blood Base Excess -2 mmol/L (-3-3) FiO2 40 Glucose (Fingerstick) 91 mg/dL (70-99) VANESSA EASTMAN MD Apr 07, 2019 17:09
[2019-04-07 17:41] LABS: BARBITURATES NEG (NEG); BENZODIAZEPINES NEG (NEG); CANNABINOIDS NEG (NEG); COCAINE NEG (NEG); METHADONE NEG (NEG); OPIATES NEG (NEG); PHENCYCLIDINE NEG (NEG)
[2019-04-07 17:44] LABS: AMPHETAMINE/METHAMPHETAMINE NEG (NEG)
[2019-04-07] MEDS: LORazepam 0.5 MG TABLET PO SCH (21:12)
[2019-04-08] VITALS (23 sets, daily range): BP systolic 80–122; BP diastolic 54–92
--- NOTE | 2019-04-08 00:08 | CONS ---
DATE OF CONSULTATION: 04/07/2019 ATTENDING PHYSICIAN: Dr. Menard. REASON FOR CONSULTATION: The patient is seen in pulmonary consultation at the request of Dr. Menard for vent management. The patient is a 74-year-old, who presented to the Emergency Department via EMS. He was found unresponsive at his assisted living facility. The patient has a history of autism and some mental retardation. He normally is ambulatory and is able to care for himself. Completes his own activities of daily living. The patient was found unresponsive this morning. His initial blood sugar was 20. He was administered D10 IV. Upon arrival to the Emergency Department, his blood sugar was 311. He is currently in the Intensive Care Unit on mechanical ventilation, sedated. According to the nurse, he has had runs of SVT. He does move all of his extremities. PAST MEDICAL HISTORY: Is otherwise obtained by reviewing the current documentation. He has also had previous admissions, the last being in 2014 for urinary retention. There is a past medical history of hypertension, gastroesophageal reflux, benign prostatic hypertrophy, UTIs, hematuria. PAST SURGICAL HISTORY: No recent major surgeries. FAMILY HISTORY: Unknown. Socially, no history listed of alcohol or tobacco. REVIEW OF SYSTEMS: Unobtainable secondary to the patient's condition. ALLERGIES: LISTED TO CEPHALOSPORINS, PENICILLIN, CARBAMAZEPINE, MEROPENEM AND PENICILLAMINE. CURRENT MEDICATIONS: List was reviewed. He is currently being sedated. He has received some IV fluids. He is on aspirin, diltiazem, Lovenox, multivitamin, Protonix and Flomax. PHYSICAL EXAMINATION: GENERAL: The patient was sedated in the Intensive Care Unit on assist control ventilation, tidal volume of 500, rate of 14, 5 of PEEP, 40%. HEENT: Eyes: The sclerae are nonicteric. NECK: Jugular venous distention is not elevated. No lymphadenopathy. Orally placed endotracheal tube. CHEST: Full expansion. LUNGS: Adequate airway flow. No wheezes. CARDIOVASCULAR: Regular rate and rhythm with S1, S2, no S3. ABDOMEN: Soft, nontender, nondistended. EXTREMITIES: No clubbing, cyanosis or edema. NEUROLOGIC: The patient is sedated. LABORATORY DATA: White count was 9.6, hemoglobin 13, hematocrit 41, platelet count was 231. Arterial blood gas initially pH of 7.37, PaCO2 of 36, pO2 of 102, bicarb was 21. INR was 1.0. Electrolytes were noted. BUN and creatinine were normal. His blood sugar level was 313. BNP was elevated. Troponin was not elevated. Repeat blood sugar was 305. TSH was normal. Chest x-ray revealed no acute process, lines in place. The patient had a CT head revealing patchy hypodense within the periventricular white matter, representing possible chronic ischemic changes. He also had some mild minimal chronic plaques in the origin at right internal carotid artery, minimal calcified atherosclerotic plaques at the cavernous segment of the right and left internal carotid arteries without significant stenosis. IMPRESSION: 1. [id number] cardiopulmonary arrest. 2. Respiratory failure secondary to above. 3. Hypoglycemia. 4. History of autism. 5. Hypertension. 6. Benign prostatic hypertrophy. PLAN: 1. We will continue current support. Adjust minute ventilation to normalize pH. 2. IV fluids. 3. Monitor blood sugars. 4. Cardiology has been consulted. I do appreciate the privilege in sharing in the patient's care. RAKESH DICKINSON MD DR: OSMIN/nicolasa JOB#: [id number] / [id number]
[2019-04-08 00:09] LABS: HEMOGLOBIN A1C 5.6 % (4.8-5.6)
[2019-04-08] MEDS: IV NORMAL SALINE 1000ML BAG 1,000 ML IV SCH ×3 (03:17→22:54)
[2019-04-08 05:01] LABS: BASO % 0 % (0-3); EOS # 0.2 x10^3/uL (0.0-0.7); EOS % 2 % (0-3); HEMATOCRIT 39.4 % (39.0-53.0); HEMOGLOBIN 13.4 g/dL (13.0-17.5); LYMPH # 1.6 x10^3/uL (1.0-4.8); LYMPH % 14 % (24-48); MEAN CORPUSCULAR HEMOGLOBIN 31 pg (25-35); MEAN CORPUSCULAR HGB CONC 34 g/dL (31-37); MEAN CORPUSCULAR VOLUME 90 fL (79-100); MONO # 0.9 x10^3/uL (0.0-1.1); MONO % 8 % (0-9); NEUT # 8.6 x10^3/uL (1.8-7.7); NEUT % 76 % (31-73); PLATELET COUNT 223 x10^3/uL (140-400); RED BLOOD COUNT 4.37 x10^6/uL (4.30-5.70); RED CELL DISTRIBUTION WIDTH 14.5 % (11.5-14.5); WHITE BLOOD COUNT 11.3 x10^3/uL (4.0-11.0)
[2019-04-08 05:15] LABS: CALCIUM 7.8 mg/dL (8.5-10.1); CREATININE 0.8 mg/dL (0.7-1.3); POTASSIUM 3.5 mmol/L (3.5-5.1)
[2019-04-08] MEDS: INSULIN LISPRO 300 UNITS/3 ML VIAL. SQ SCH ×3 (06:00→18:00)
[2019-04-08] MEDS: dilTIAZem HCL 30 MG TABLET PO SCH ×3 (06:11→21:40)
--- NOTE | 2019-04-08 07:26 | RAD ---
Study: KUB Indication: Orogastric tube placement. Comparison: None recent. Findings: Single AP view of the mid upper abdomen. Enteric tube tip and sidehole are within the stomach. EKG leads overlie the chest and upper abdomen. No pneumoperitoneum or findings of obstruction on this limited evaluation. Asymmetric elevation of the right hemidiaphragm. Impression: Enteric tube tip and sidehole within the stomach. Electronically signed by: YANCI DEL CASTILLO MD (04/08/2019 7:23 AM) [id number]
[2019-04-08 07:42] LABS: MAGNESIUM 1.9 mg/dL (1.8-2.4); PHOSPHORUS 3.1 mg/dL (2.6-4.7)
[2019-04-08] MEDS: TAMSULOSIN 0.4 MG CAP.ER.24H. PO SCH (08:00)
[2019-04-08] MEDS: MULTIVITAMIN with MINERAL TABLET. PO SCH (08:19)
[2019-04-08] MEDS: PANTOPRAZOLE IV PUSH 40 MG VIAL. IVP SCH (08:19)
[2019-04-08] MEDS: ASPIRIN CHEWABLE 81 MG TABLET. PO SCH (08:19)
[2019-04-08 08:24] LABS: BASE EXCESS ABG -4 mmol/L (-3-3); HCO3 ABG 19 mmol/L (21-28); PCO2 ABG 30 mmHg (35-46); PO2 ABG 106 mmHg (65-108); SAT O2 ABG 98 % (92-99)
--- NOTE | 2019-04-08 08:43 | PDOC ---
PROGRESS NOTES Subjective Subjective on vent getting EEG Objective Objective Vital Signs Date Time Temp Pulse Resp B/P (MAP) Pulse Ox O2 Delivery O2 Flow Rate FiO2 04/08/19 06:11 87 106/64 04/08/19 06:00 16 99 Ventilator 04/08/19 04:00 98.5 98.5 l Intake and Output 04/08/19 06:59 Intake Total 4329 ml Output Total 980 ml Balance 3349 ml Intake IV Total 3002 ml Tube Feeding 877 ml Blood Product IV Normal Saline Flush 300 ml Other 150 ml Output Urine Total 980 ml Physical Exam Physical Exam orally intubated On Vent and propofol sedation Abdomen: Soft Heart: Regular rate (SR), Normal S1, Normal S2, Other (2/6 systolic murmur to LLS border) Extremities: No cyanosis, No edema General: Other (sedated, intubated) HEENT: Atraumatic, Mucous membr. moist/pink Lungs: Clear to auscultation, Other (intubated with vent) MUSCULOSKELETAL: Osteoarthritic changes both hands Neuro: Other (sedated) Skin: No breakdown, No significant lesion COMMENT otto Diagnosis Problem List Problems Medical Problems: (1) Altered level of consciousness Status: Acute (2) BPH (benign prostatic hyperplasia) Status: Chronic (3) GERD (gastroesophageal reflux disease) Status: Chronic (4) HTN (hypertension) Status: Chronic (5) Hyperglycemia Status: Acute (6) Hypoglycemia Status: Acute Assessment Assessment Problems Medical Problems: (1) Altered level of consciousness Status: Acute (2) BPH (benign prostatic hyperplasia) Status: Chronic (3) GERD (gastroesophageal reflux disease) Status: Chronic (4) HTN (hypertension) Status: Chronic (5) Hyperglycemia Status: Acute (6) Hypoglycemia Status: Acute Assessment/Plan HYPOGLYCEMIA causing MINIMAL responsiveness, intubated for airway protection . GERD, BPH, HTN - stable HYPOTENSION, post intubation, responded to fluid . Seizures? PSVT FUL CODE\ CTA head./neck: 1. No large vessel occlusion. 2. Minimal patchy chronic plaque at the origin of the right internal carotid artery without significant stenosis. 3. Minimal calcified atherosclerotic plaque at the cavernous segments of the right and left internal carotid arteries bilaterally without significant stenosis. Plan:EEG today On vent cardiology consult appreciated Neuro consult appreciated spoke with people from [facility] spoke with RN CTA noted no stroke or aneurysm Plan Plan of Care Problems Medical Problems: (1) Altered level of consciousness Status: Acute (2) BPH (benign prostatic hyperplasia) Status: Chronic (3) GERD (gastroesophageal reflux disease) Status: Chronic (4) HTN (hypertension) Status: Chronic (5) Hyperglycemia Status: Acute (6) Hypoglycemia Status: Acute Comment Review of Relevant I have reviewed the following items aden (where applicable) has been applied. Labs Laboratory Tests Test 04/07/19 11:27 04/07/19 17:08 04/07/19 17:25 04/07/19 23:55 Glucose (Fingerstick) 91 mg/dL (70-99) 80 mg/dL (70-99) 97 mg/dL (70-99) Urine Opiates Screen Neg (NEG) Urine Methadone Screen Neg (NEG) Urine Barbiturates Neg (NEG) Urine Phencyclidine Screen Neg (NEG) Urine Amphetamine/Methamphetamine Neg (NEG) Urine Benzodiazepines Screen Neg (NEG) Urine Cocaine Screen Neg (NEG) Urine Cannabinoids Screen Neg (NEG) Urine Ethyl Alcohol Neg (NEG) Test 04/08/19 04:30 04/08/19 06:13 04/08/19 08:00 White Blood Count 11.3 x10^3/uL (4.0-11.0) Red Blood Count 4.37 x10^6/uL (4.30-5.70) Hemoglobin 13.4 g/dL (13.0-17.5) Hematocrit 39.4 % (39.0-53.0) Mean Corpuscular Volume 90 fL (79-100) Mean Corpuscular Hemoglobin 31 pg (25-35) Mean Corpuscular Hemoglobin Concent 34 g/dL (31-37) Red Cell Distribution Width 14.5 % (11.5-14.5) Platelet Count 223 x10^3/uL (140-400) Neutrophils (%) (Auto) 76 % (31-73) Lymphocytes (%) (Auto) 14 % (24-48) Monocytes (%) (Auto) 8 % (0-9) Eosinophils (%) (Auto) 2 % (0-3) Basophils (%) (Auto) 0 % (0-3) Neutrophils # (Auto) 8.6 x10^3/uL (1.8-7.7) Lymphocytes # (Auto) 1.6 x10^3/uL (1.0-4.8) Monocytes # (Auto) 0.9 x10^3/uL (0.0-1.1) Eosinophils # (Auto) 0.2 x10^3/uL (0.0-0.7) Basophils # (Auto) 0.0 x10^3/uL (0.0-0.2) Sodium Level 140 mmol/L (136-145) Potassium Level 3.5 mmol/L (3.5-5.1) Chloride Level 109 mmol/L (98-107) Carbon Dioxide Level 21 mmol/L (21-32) Anion Gap 10 (6-14) Blood Urea Nitrogen 16 mg/dL (8-26) Creatinine 0.8 mg/dL (0.7-1.3) Estimated GFR (Cockcroft-Gault) 95.0 Glucose Level 119 mg/dL (70-99) Calcium Level 7.8 mg/dL (8.5-10.1) Phosphorus Level 3.1 mg/dL (2.6-4.7) Magnesium Level 1.9 mg/dL (1.8-2.4) Glucose (Fingerstick) 112 mg/dL (70-99) O2 Saturation 98 % (92-99) Arterial Blood pH 7.42 (7.35-7.45) Arterial Blood pCO2 at Patient Temp 30 mmHg (35-46) Arterial Blood pO2 at Patient Temp 106 mmHg (65-108) Arterial Blood HCO3 19 mmol/L (21-28) Arterial Blood Base Excess -4 mmol/L (-3-3) Medications Current Medications Adenosine (Adenocard) 6 mg 1X ONCE IV Last administered on 04/07/19at 11:24; Start 04/07/19 at 11:30; Stop 04/07/19 at 11:31; Status DC Adenosine (Adenocard) 6 mg STK-MED ONCE IV ; Start 04/07/19 at 11:20; Stop 04/07/19 at 11:21; Status DC Aspirin (Children'S Aspirin) 81 mg DAILY PO Last administered on 04/08/19at 08:19; Start 04/07/19 at 09:00 Diltiazem HCl (Cardizem) 30 mg Q8HRS PO Last administered on 04/08/19at 06:11; Start 04/07/19 at 12:00 Insulin Human Lispro (HumaLOG) 0-7 UNITS Q6HRS SQ ; Start 04/07/19 at 18:00 Multi-Ingred Cream/Lotion/Oil/ Oint (Artificial Tears Eye Ointment) 1 valerie PRN Q1HR PRN OU DRY EYE Last administered on 04/07/19at 13:58; Start 04/07/19 at 11:15 Multivitamins (Thera M Plus) 1 tab DAILY PO Last administered on 04/08/19 08:19; Start 04/07/19 at 09:00 Sodium Chloride 1,000 ml @ 100 mls/hr Q10H IV Last administered on 04/08/19 03:17; Start 04/07/19 at 17:15 Tamsulosin HCl (Flomax) 0.4 mg DAILY PO Last administered on 04/07/19 08:25; Start 04/07/19 at 09:00 Vitals/I & O Vital Sign - Last 24 Hours 04/07/19 04/07/19 04/07/19 04/07/19 09:00 09:04 10:00 11:00 Temp 99.4 99.4 Pulse 82 79 75 Resp 16 16 16 B/P (MAP) 102/68 (79) 100/66 (77) 110/68 (82) Pulse Ox 99 100 99 99 O2 Delivery Ventilator Ventilator Ventilator Ventilator 04/07/19 04/07/19 04/07/19 04/07/19 11:50 12:00 12:00 13:00 Pulse 79 82 Resp 16 16 B/P (MAP) 106/66 (79) 107/68 (81) Pulse Ox 99 99 99 O2 Delivery Ventilator Mechanical Ventilator Ventilator Ventilator 04/07/19 04/07/19 04/07/19 04/07/19 13:28 13:59 15:00 15:35 Temp 99.1 99.1 Pulse 82 84 80 Resp 18 16 B/P (MAP) 107/68 104/67 (79) 96/66 (76) Pulse Ox 99 99 99 O2 Delivery Ventilator Ventilator Ventilator 04/07/19 04/07/19 04/07/19 04/07/19 16:05 16:08 17:00 18:00 Pulse 80 77 73 Resp 16 16 16 B/P (MAP) 97/66 (76) 86/63 (71) 118/73 (88) Pulse Ox 100 100 100 O2 Delivery Mechanical Ventilator Ventilator Ventilator Ventilator 04/07/19 04/07/19 04/07/19 04/07/19 18:01 19:00 20:00 20:00 Temp 98.7 98.7 Pulse 82 80 Resp 18 18 B/P (MAP) 120/79 (93) 120/77 (91) Pulse Ox 100 100 100 O2 Delivery Ventilator Ventilator Ventilator Mechanical Ventilator 04/07/19 04/07/19 04/07/19 04/07/19 20:12 21:00 21:20 22:00 Pulse 80 81 82 Resp 18 18 B/P (MAP) 128/76 (93) 128/76 126/74 (91) Pulse Ox 100 100 100 O2 Delivery Ventilator Ventilator Ventilator 04/07/19 04/07/19 04/08/19 04/08/19 23:00 23:59 00:00 00:07 Temp 98.9 98.9 Pulse 75 75 Resp 16 16 B/P (MAP) 93/66 (75) 101/67 (78) Pulse Ox 99 99 100 O2 Delivery Ventilator Mechanical Ventilator Ventilator Ventilator 04/08/19 04/08/19 04/08/19 04/08/19 01:00 02:00 02:00 03:00 Pulse 78 76 86 Resp 17 16 18 B/P (MAP) 119/73 (88) 105/69 (81) 122/71 (88) Pulse Ox 100 100 100 99 O2 Delivery Ventilator Ventilator Ventilator Ventilator 04/08/19 04/08/19 04/08/19 04/08/19 04:00 04:00 04:20 05:00 Temp 98.5 98.5 Pulse 72 70 Resp 17 18 B/P (MAP) 96/54 (68) 103/92 (96) Pulse Ox 97 100 94 O2 Delivery Ventilator Mechanical Ventilator Ventilator Ventilator 04/08/19 04/08/19 06:00 06:11 Pulse 87 87 Resp 16 B/P (MAP) 106/64 (78) 106/64 Pulse Ox 99 O2 Delivery Ventilator Intake and Output 04/07/19 04/07/19 04/08/19 14:59 22:59 06:59 Intake Total 250 ml 1822 ml 2257 ml Output Total 255 ml 400 ml 325 ml Balance -5 ml 1422 ml 1932 ml ROSALVA GOODWIN MD Apr 08, 2019 08:43
--- NOTE | 2019-04-08 09:12 | NUR ---
IP: patient has hx of MRSA nares and urine. Requires contact precautions until 2 negative results 7 days apart.
--- NOTE | 2019-04-08 10:24 | NUR ---
SS following for discharge planning. SS reviewed pt chart. Pt is currently on the vent. Pt is from [facility], ; fax [phone]. SS contacted [facility] and spoke with Haylie. She reported that pt is in a [facility] with [facility] and receives care from [id number] and is independent for the remainder of the day. She reported that pt does have a sister that is older than him and lives in assisted living. She reported that pt has no other family involved. SS contacted pt's poured concrete wall technician, Eden, and left a voicemail, . SS will continue to follow for discharge planning.
--- NOTE | 2019-04-08 11:30 | PDOC ---
PULMONARY PROGRESS NOTES Subjective PT INTUBATED SEDATED Vitals Vital Signs Date Time Temp Pulse Resp B/P (MAP) Pulse Ox O2 Delivery O2 Flow Rate FiO2 04/08/19 09:00 78 17 104/64 (77) 99 Ventilator 04/08/19 08:00 99.5 99.5 Lungs: Clear Cardiovascular: S1 Abdomen: Soft Extremities: Other (EDEMA) Skin: Warm Labs Laboratory Tests Test 04/06/19 17:02 04/06/19 17:05 04/06/19 17:09 04/06/19 17:15 Hemoglobin A1c 5.6 % (4.8-5.6) White Blood Count 9.6 x10^3/uL (4.0-11.0) Red Blood Count 4.48 x10^6/uL (4.30-5.70) Hemoglobin 13.8 g/dL (13.0-17.5) Hematocrit 41.0 % (39.0-53.0) Mean Corpuscular Volume 92 fL (79-100) Mean Corpuscular Hemoglobin 31 pg (25-35) Mean Corpuscular Hemoglobin Concent 34 g/dL (31-37) Red Cell Distribution Width 14.8 % (11.5-14.5) Platelet Count 231 x10^3/uL (140-400) Neutrophils (%) (Auto) 81 % (31-73) Lymphocytes (%) (Auto) 13 % (24-48) Monocytes (%) (Auto) 6 % (0-9) Eosinophils (%) (Auto) 1 % (0-3) Basophils (%) (Auto) 0 % (0-3) Neutrophils # (Auto) 7.7 x10^3/uL (1.8-7.7) Lymphocytes # (Auto) 1.2 x10^3/uL (1.0-4.8) Monocytes # (Auto) 0.5 x10^3/uL (0.0-1.1) Eosinophils # (Auto) 0.1 x10^3/uL (0.0-0.7) Basophils # (Auto) 0.0 x10^3/uL (0.0-0.2) Prothrombin Time 13.1 SEC (11.7-14.0) Prothromb Time International Ratio 1.0 (0.8-1.1) Sodium Level 140 mmol/L (136-145) Potassium Level 4.5 mmol/L (3.5-5.1) Chloride Level 106 mmol/L (98-107) Carbon Dioxide Level 25 mmol/L (21-32) Anion Gap 9 (6-14) 15 mmol/L (6-14) Blood Urea Nitrogen 19 mg/dL (8-26) Creatinine 1.0 mg/dL (0.7-1.3) Estimated GFR (Cockcroft-Gault) 73.7 BUN/Creatinine Ratio 19 (6-20) Glucose Level 313 mg/dL (70-99) 305 mg/dL (70-99) Lactic Acid Level 1.1 mmol/L (0.4-2.0) Calcium Level 8.5 mg/dL (8.5-10.1) Phosphorus Level 3.7 mg/dL (2.6-4.7) Magnesium Level 2.2 mg/dL (1.8-2.4) Total Bilirubin 0.4 mg/dL (0.2-1.0) Aspartate Amino Transf (AST/SGOT) 20 U/L (15-37) Alanine Aminotransferase (ALT/SGPT) 25 U/L (16-63) Alkaline Phosphatase 93 U/L (46-116) Troponin I Quantitative < 0.017 ng/mL (0.000-0.055) UB-Uny-P-Type Natriuretic Peptide 1519 pg/mL (0-124) Total Protein 6.3 g/dL (6.4-8.2) Albumin 3.1 g/dL (3.4-5.0) Albumin/Globulin Ratio 1.0 (1.0-1.7) Thyroid Stimulating Hormone (TSH) 1.041 uIU/mL (0.358-3.74) Free Thyroxine 0.66 ng/dL (0.76-1.46) Bedside Hemoglobin 14.3 g/dL (14-18) Bedside Hematocrit 42 % (37-52) Bedside Sodium 138 mmol/L (135-145) Bedside Potassium 4.2 mmol/L (3.5-5.0) Bedside Chloride 105 mmol/L (98-110) Bedside Total CO2 23 mmol/L (23-32) Bedside Blood Urea Nitrogen 18 mg/dL (8-26) Bedside Creatinine 0.9 mg/dL (0.5-1.4) Bedside Ionized Calcium (Wilfred) 1.10 mmol/L (1.13-1.32) Urine Collection Type Void Urine Color Yellow Urine Clarity Clear Urine pH 6.0 Urine Specific [place] 1.010 Urine Protein Negative mg/dL (NEG-TRACE) Urine Glucose (UA) 250 mg/dL (NEG) Urine Ketones (Stick) Negative mg/dL (NEG) Urine Blood Trace (NEG) Urine Nitrite Negative (NEG) Urine Bilirubin Negative (NEG) Urine Urobilinogen Dipstick 0.2 mg/dL (0.2 mg/dL) Urine Leukocyte Esterase Negative (NEG) Urine RBC 0 /HPF (0-2) Urine WBC 1-4 /HPF (0-4) Urine Squamous Epithelial Cells Occ /LPF Urine Bacteria Few /HPF (0-FEW) Test 04/06/19 18:35 04/06/19 21:28 04/06/19 22:40 04/07/19 03:43 O2 Saturation 97 % (92-99) Arterial Blood pH 7.37 (7.35-7.45) Arterial Blood pCO2 at Patient Temp 36 mmHg (35-46) Arterial Blood pO2 at Patient Temp 102 mmHg (65-108) Arterial Blood HCO3 21 mmol/L (21-28) Arterial Blood Base Excess -4 mmol/L (-3-3) FiO2 40 Glucose (Fingerstick) 73 mg/dL (70-99) 79 mg/dL (70-99) 92 mg/dL (70-99) Test 04/07/19 08:10 04/07/19 08:40 04/07/19 11:27 04/07/19 17:08 Sodium Level 145 mmol/L (136-145) Potassium Level 3.6 mmol/L (3.5-5.1) Chloride Level 112 mmol/L (98-107) Carbon Dioxide Level 23 mmol/L (21-32) Anion Gap 10 (6-14) Blood Urea Nitrogen 16 mg/dL (8-26) Creatinine 0.9 mg/dL (0.7-1.3) Estimated GFR (Cockcroft-Gault) 82.9 Glucose Level 103 mg/dL (70-99) Calcium Level 7.9 mg/dL (8.5-10.1) Phosphorus Level 2.9 mg/dL (2.6-4.7) Magnesium Level 1.9 mg/dL (1.8-2.4) Creatine Kinase 87 U/L (39-308) Vitamin B12 Level 430 pg/mL (247-911) O2 Saturation 98 % (92-99) Arterial Blood pH 7.50 (7.35-7.45) Arterial Blood pCO2 at Patient Temp 26 mmHg (35-46) Arterial Blood pO2 at Patient Temp 110 mmHg (65-108) Arterial Blood HCO3 20 mmol/L (21-28) Arterial Blood Base Excess -2 mmol/L (-3-3) FiO2 40 Glucose (Fingerstick) 91 mg/dL (70-99) 80 mg/dL (70-99) Test 04/07/19 17:25 04/07/19 23:55 04/08/19 04:30 04/08/19 06:13 Urine Opiates Screen Neg (NEG) Urine Methadone Screen Neg (NEG) Urine Barbiturates Neg (NEG) Urine Phencyclidine Screen Neg (NEG) Urine Amphetamine/Methamphetamine Neg (NEG) Urine Benzodiazepines Screen Neg (NEG) Urine Cocaine Screen Neg (NEG) Urine Cannabinoids Screen Neg (NEG) Urine Ethyl Alcohol Neg (NEG) Glucose (Fingerstick) 97 mg/dL (70-99) 112 mg/dL (70-99) White Blood Count 11.3 x10^3/uL (4.0-11.0) Red Blood Count 4.37 x10^6/uL (4.30-5.70) Hemoglobin 13.4 g/dL (13.0-17.5) Hematocrit 39.4 % (39.0-53.0) Mean Corpuscular Volume 90 fL (79-100) Mean Corpuscular Hemoglobin 31 pg (25-35) Mean Corpuscular Hemoglobin Concent 34 g/dL (31-37) Red Cell Distribution Width 14.5 % (11.5-14.5) Platelet Count 223 x10^3/uL (140-400) Neutrophils (%) (Auto) 76 % (31-73) Lymphocytes (%) (Auto) 14 % (24-48) Monocytes (%) (Auto) 8 % (0-9) Eosinophils (%) (Auto) 2 % (0-3) Basophils (%) (Auto) 0 % (0-3) Neutrophils # (Auto) 8.6 x10^3/uL (1.8-7.7) Lymphocytes # (Auto) 1.6 x10^3/uL (1.0-4.8) Monocytes # (Auto) 0.9 x10^3/uL (0.0-1.1) Eosinophils # (Auto) 0.2 x10^3/uL (0.0-0.7) Basophils # (Auto) 0.0 x10^3/uL (0.0-0.2) Sodium Level 140 mmol/L (136-145) Potassium Level 3.5 mmol/L (3.5-5.1) Chloride Level 109 mmol/L (98-107) Carbon Dioxide Level 21 mmol/L (21-32) Anion Gap 10 (6-14) Blood Urea Nitrogen 16 mg/dL (8-26) Creatinine 0.8 mg/dL (0.7-1.3) Estimated GFR (Cockcroft-Gault) 95.0 Glucose Level 119 mg/dL (70-99) Calcium Level 7.8 mg/dL (8.5-10.1) Phosphorus Level 3.1 mg/dL (2.6-4.7) Magnesium Level 1.9 mg/dL (1.8-2.4) Test 04/08/19 08:00 O2 Saturation 98 % (92-99) Arterial Blood pH 7.42 (7.35-7.45) Arterial Blood pCO2 at Patient Temp 30 mmHg (35-46) Arterial Blood pO2 at Patient Temp 106 mmHg (65-108) Arterial Blood HCO3 19 mmol/L (21-28) Arterial Blood Base Excess -4 mmol/L (-3-3) Laboratory Tests Test 04/07/19 17:08 04/07/19 17:25 04/07/19 23:55 04/08/19 04:30 Glucose (Fingerstick) 80 mg/dL (70-99) 97 mg/dL (70-99) Urine Opiates Screen Neg (NEG) Urine Methadone Screen Neg (NEG) Urine Barbiturates Neg (NEG) Urine Phencyclidine Screen Neg (NEG) Urine Amphetamine/Methamphetamine Neg (NEG) Urine Benzodiazepines Screen Neg (NEG) Urine Cocaine Screen Neg (NEG) Urine Cannabinoids Screen Neg (NEG) Urine Ethyl Alcohol Neg (NEG) White Blood Count 11.3 x10^3/uL (4.0-11.0) Red Blood Count 4.37 x10^6/uL (4.30-5.70) Hemoglobin 13.4 g/dL (13.0-17.5) Hematocrit 39.4 % (39.0-53.0) Mean Corpuscular Volume 90 fL (79-100) Mean Corpuscular Hemoglobin 31 pg (25-35) Mean Corpuscular Hemoglobin Concent 34 g/dL (31-37) Red Cell Distribution Width 14.5 % (11.5-14.5) Platelet Count 223 x10^3/uL (140-400) Neutrophils (%) (Auto) 76 % (31-73) Lymphocytes (%) (Auto) 14 % (24-48) Monocytes (%) (Auto) 8 % (0-9) Eosinophils (%) (Auto) 2 % (0-3) Basophils (%) (Auto) 0 % (0-3) Neutrophils # (Auto) 8.6 x10^3/uL (1.8-7.7) Lymphocytes # (Auto) 1.6 x10^3/uL (1.0-4.8) Monocytes # (Auto) 0.9 x10^3/uL (0.0-1.1) Eosinophils # (Auto) 0.2 x10^3/uL (0.0-0.7) Basophils # (Auto) 0.0 x10^3/uL (0.0-0.2) Sodium Level 140 mmol/L (136-145) Potassium Level 3.5 mmol/L (3.5-5.1) Chloride Level 109 mmol/L (98-107) Carbon Dioxide Level 21 mmol/L (21-32) Anion Gap 10 (6-14) Blood Urea Nitrogen 16 mg/dL (8-26) Creatinine 0.8 mg/dL (0.7-1.3) Estimated GFR (Cockcroft-Gault) 95.0 Glucose Level 119 mg/dL (70-99) Calcium Level 7.8 mg/dL (8.5-10.1) Phosphorus Level 3.1 mg/dL (2.6-4.7) Magnesium Level 1.9 mg/dL (1.8-2.4) Test 04/08/19 06:13 04/08/19 08:00 Glucose (Fingerstick) 112 mg/dL (70-99) O2 Saturation 98 % (92-99) Arterial Blood pH 7.42 (7.35-7.45) Arterial Blood pCO2 at Patient Temp 30 mmHg (35-46) Arterial Blood pO2 at Patient Temp 106 mmHg (65-108) Arterial Blood HCO3 19 mmol/L (21-28) Arterial Blood Base Excess -4 mmol/L (-3-3) Medications Active Scripts Medications Dose Route/Sig Max Daily Dose Days Date Category Pyridium (Phenazopyridine Hcl) 200 Mg Tablet 200 Mg PO TID 12/17/16 Rx Cipro (Ciprofloxacin Hcl) 250 Mg Tablet 1 Tab PO BID 12/17/16 Rx Ciprofloxacin Hcl 500 Mg Tablet 500 Mg PO BID 07/13/15 Rx Ativan (Lorazepam) 0.5 Mg Tablet 0.5 Mg PO HS 07/11/15 Reported Tamsulosin Hcl 0.4 Mg Cap.er.24h 0.4 Mg PO DAILY 05/08/15 Reported Multi-Day Vitamins (Multivitamin) 1 Each Tablet 1 Tab PO DAILY 04/17/15 Reported Tylenol (Acetaminophen) 325 Mg Tablet 2 Tab PO BID PRN 02/07/15 Reported Losartan Potassium 50 Mg Tablet 1 Tab PO DAILY 02/07/15 Reported Zantac (Ranitidine Hcl) 150 Mg Tablet 1 Tab PO DAILY 02/07/15 Reported Aspirin 81 Mg Tab.chew 1 Tab PO DAILY 02/07/15 Reported Impression . IMPRESSION: 1. Mhi-ci-spqybtuu cardiopulmonary arrest. 2. Respiratory failure secondary to above. 3. Hypoglycemia. 4. History of autism. 5. Hypertension. 6. Benign prostatic hypertrophy. Plan . HOLD SEDATION IN AM AND TRIAL CONTINUE SUPPORT FOR NOW FOLLOW CARD INPUT REPEAT CXR DVT AND GI PROPH RAKESH DICKINSON MD Apr 08, 2019 11:30
[2019-04-08] MEDS: PROPOFOL 100 ML IV PRN ×2 (12:53→21:39)
--- NOTE | 2019-04-08 13:14 | PDOC ---
CARDIO Progress Notes Date and Time Date of Service 04/08/2019 Time of Evaluation 1310 Subjective Subjective: Other (intubated) Vitals Vitals Vital Signs Date Time Temp Pulse Resp B/P (MAP) Pulse Ox O2 Delivery O2 Flow Rate FiO2 04/08/19 13:01 84 14 100/73 (82) 99 Ventilator 04/08/19 12:00 99.4 99.4 Weight Weight [ ] Input and Output Intake and Output Intake and Output 04/08/19 06:59 Intake Total 4329 ml Output Total 980 ml Balance 3349 ml Intake IV Total 3002 ml Tube Feeding 877 ml Blood Product IV Normal Saline Flush 300 ml Other 150 ml Output Urine Total 980 ml Laboratory Labs Laboratory Tests Test 04/07/19 17:08 04/07/19 17:25 04/07/19 23:55 04/08/19 04:30 Glucose (Fingerstick) 80 mg/dL (70-99) 97 mg/dL (70-99) Urine Opiates Screen Neg (NEG) Urine Methadone Screen Neg (NEG) Urine Barbiturates Neg (NEG) Urine Phencyclidine Screen Neg (NEG) Urine Amphetamine/Methamphetamine Neg (NEG) Urine Benzodiazepines Screen Neg (NEG) Urine Cocaine Screen Neg (NEG) Urine Cannabinoids Screen Neg (NEG) Urine Ethyl Alcohol Neg (NEG) White Blood Count 11.3 x10^3/uL (4.0-11.0) Red Blood Count 4.37 x10^6/uL (4.30-5.70) Hemoglobin 13.4 g/dL (13.0-17.5) Hematocrit 39.4 % (39.0-53.0) Mean Corpuscular Volume 90 fL (79-100) Mean Corpuscular Hemoglobin 31 pg (25-35) Mean Corpuscular Hemoglobin Concent 34 g/dL (31-37) Red Cell Distribution Width 14.5 % (11.5-14.5) Platelet Count 223 x10^3/uL (140-400) Neutrophils (%) (Auto) 76 % (31-73) Lymphocytes (%) (Auto) 14 % (24-48) Monocytes (%) (Auto) 8 % (0-9) Eosinophils (%) (Auto) 2 % (0-3) Basophils (%) (Auto) 0 % (0-3) Neutrophils # (Auto) 8.6 x10^3/uL (1.8-7.7) Lymphocytes # (Auto) 1.6 x10^3/uL (1.0-4.8) Monocytes # (Auto) 0.9 x10^3/uL (0.0-1.1) Eosinophils # (Auto) 0.2 x10^3/uL (0.0-0.7) Basophils # (Auto) 0.0 x10^3/uL (0.0-0.2) Sodium Level 140 mmol/L (136-145) Potassium Level 3.5 mmol/L (3.5-5.1) Chloride Level 109 mmol/L (98-107) Carbon Dioxide Level 21 mmol/L (21-32) Anion Gap 10 (6-14) Blood Urea Nitrogen 16 mg/dL (8-26) Creatinine 0.8 mg/dL (0.7-1.3) Estimated GFR (Cockcroft-Gault) 95.0 Glucose Level 119 mg/dL (70-99) Calcium Level 7.8 mg/dL (8.5-10.1) Phosphorus Level 3.1 mg/dL (2.6-4.7) Magnesium Level 1.9 mg/dL (1.8-2.4) Test 04/08/19 06:13 04/08/19 08:00 04/08/19 12:45 Glucose (Fingerstick) 112 mg/dL (70-99) 111 mg/dL (70-99) O2 Saturation 98 % (92-99) Arterial Blood pH 7.42 (7.35-7.45) Arterial Blood pCO2 at Patient Temp 30 mmHg (35-46) Arterial Blood pO2 at Patient Temp 106 mmHg (65-108) Arterial Blood HCO3 19 mmol/L (21-28) Arterial Blood Base Excess -4 mmol/L (-3-3) Physical Exam HEENT: Neck Supple W Full Motion Chest: Symmetric LUNGS: Other (intubated, vent) Heart: S1S2, RRR (SR) Abdomen: Other (soft) Extremities: No Edema Neurology: other (sedated) Assessment Assessment 1. Acute respiratory failure: intubated/vent for airway protection 2. Metabolic encephalopathy: found unresponsive at facility with BG 20. Head CTA negative so far. 3. Suspect syncope with noted hypoglycemia: seizure is another possibility as hypoglycemia would induce this 4. Hypoglycemic reaction: no hx of DM 5. Hx of mental retardation 6. 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 No prior hx. None further with cardizem 8. Moderate /mild AI Recommendations 1. Continue cardizem per BP trend 2. Frequent PVCs, will check Mg and replace as warranted. K replacement. 3. Supportive care. NELI MARSHALL [employer] WORKER Apr 08, 2019 13:14
--- NOTE | 2019-04-08 13:38 | EEG ---
DATE OF SERVICE: 04/07/2019 EEG NUMBER: [id number]. OBJECTIVE: This is a 74-year-old male patient who had extreme hyperglycemia and seizure or seizure-like episodes. EEG was requested to evaluate seizure activity. METHODS: Twenty electrodes were applied according to the international 10-20 electrode placement system. EKG monitoring, hyperventilation, intermittent photic stimulation, monopolar and bipolar montages are routinely utilized. The record was obtained on a digital system with video monitoring. FINDINGS: 1. Background: The patient was recorded in the decreased response state. The overall background amplitude is variable. A posterior dominant rhythm of 8 Hz is observed, but is not well organized and is with a superimposed slowing in the theta and delta frequencies. 2. Abnormalities: No specific epileptiform discharge or electrographic seizure is seen. The superimposed slowing in the theta and delta frequencies noted. 3. Activation: Hyperventilation was not performed because the patient was on ventilation. Intermittent photic stimulation was performed with photic driving. No specific epileptiform discharge or electrographic seizure induced by intermittent photic stimulation. IMPRESSION: This EEG falls into the abnormal category of the study in the decreased response state. The posterior dominant rhythm is not well organized. There is superimposed slowing in the theta and delta frequencies. No focal, lateralizing, specific epileptiform discharge, or electrographic seizure is seen. This pattern of EEG may suggest encephalopathy. VANESSA EASTMAN MD DR: [email or web address]/[email or web address] JOB#: [id number] / [id number] CARLOS
[2019-04-08] MEDS ORDERED: POTASSIUM BICARB 20 MEQ EFFERVESCENT TABLET. PEG ONE (14:30)
--- NOTE | 2019-04-08 16:25 | PDOC ---
PROGRESS NOTES Assessment Assessment Metabolic encephalopathy. Respiratory failure. Seizure or seizure like episode, provoked. Hypoglycemia, glucose level 20. Hyperglycemia, glucose level 350. DM. HTN. Intellectual disability. RECOMMENDATIONS/PLAN: Life support in ICU at the present time. Treat medical diseases. Ativan 1 mg IV PRN q4h seizure. Keppra 500 mg IV q12h if has further seizures. EEG on 04/08/19: Encephalopathy. HISTORY OF PRESENT ILLNESS This is a 74-y-old male patient [facility] with above listed diseases and intellectual disability was found by the staff in the bed unresponsive. EMS arrived and noted his glucose level was at 20, so he was administrated D50 but his mentation remains poor. He was then intubated to secure airway due to respiratory distress/failure and he was brought to the ER of [facility]. Upon admission he was noted with SVT in ICU lasting about 3 minutes. Adenosine x1 was given. Neurology was requested for consultation for a seizure or seizure like episode. He was reportedly to have vague history of seizure in the past, but not AEDs. His HCT and CTA are unremarkable. On vent stable on 04/08/19. PAST MEDICAL HISTORY Cardiovascular: HTN CENTRAL NERVOUS SYSTEM: Mental retardation. GI: GERD Musculoskeletal: Osteoarthritis Renal/: UTI, Benign prostatic enlargement. PAST SURGICAL HISTORY TURP; ligia fundoplication. FAMILY HISTORY No information is available at this time. SOCIAL HISTORY Smoke: No ALCOHOL: none Drugs: None Lives: Alone (assited living) ALLERGIES Coded Allergies: Cephalosporins (Verified Allergy, Intermediate, 07/13/15) Penicillins (Verified Allergy, Intermediate, 07/13/15) carbamazepine (Verified Allergy, Intermediate, 07/13/15) meropenem (Verified Allergy, Intermediate, 07/12/15) BETA LACTAMS penicillamine (Verified Allergy, Intermediate, 07/13/15) I S O L A T I O N *CONTACT* (Verified Allergy, Unknown, 07/11/15), mrsa + MEDICATIONS: Refer to MAR REVIEW OF SYSTEMS: Constitutional: No malnutrition, weight loss, cachexia. Head: No traumatic brain injury. Skin: No edema, or rash. Ear: No infection. Eyes: No vision loss or color blindness. Nose: No bleeding or purulent discharges. Hearing: No hearing decrease. Neck: No injury. Cardiac: HTN. Pulmonary: No COPD. GI: No GI ulcer, GI bleeding. Urinary/genital: UTI. Endocrinologic: Diabetes Mellitus? Skeletomuscular: No muscular atrophy, deformity. Neurological: see HP. Psychiatric: Denies drug use/abuse. Otherwise, not [id number] review of systems. PHYSICAL EXAMINATION: General appearance is in subacute distress. HEENT: Normocephalic and nontraumatic. Eyes, nose, ears, and throat are unremarkable. Neck is supple. No lymphadenopathy. No crepitus. Cardiovascular: S1, S2, PAC appreciated. Pulmonary: On vent. Abdomen: Bowel sounds are positive. Extremities: No rash, lesions, or edema. NEUROLOGICAL EXAMINATION: Unresponsive. On vent. Not oriented to time, place and person. PERRL. EOMI not elicited. CN: no focal findings. Muscle tone: Decreased. Muscle strength: No movements to stimuli. DTR: 0-1 Plantar reflex: No response bilaterally Gait: Unable to walk at the present time. Sensory exam: no response. Not able to access cerebellar signs. F-T-N test not performed due to unresponsiveness. Objective Objective Vital Signs Date Time Temp Pulse Resp B/P (MAP) Pulse Ox O2 Delivery O2 Flow Rate FiO2 04/08/19 16:20 79 112/74 04/08/19 15:34 98 Ventilator 04/08/19 14:00 14 04/08/19 12:00 99.4 99.4 Intake and Output 04/08/19 07:00 Intake Total 4329 ml Output Total 1015 ml Balance 3314 ml Intake IV Total 3002 ml Tube Feeding 877 ml Blood Product IV Normal Saline Flush 300 ml Other 150 ml Output Urine Total 1015 ml Vitals Signs Vitals VS - Last 72 Hours, by Label Date Time Temp Pulse Resp B/P (MAP) Pulse Ox O2 Delivery O2 Flow Rate FiO2 04/08/19 16:20 79 112/74 04/08/19 15:34 98 Ventilator 04/08/19 14:00 83 14 106/68 (81) 99 Ventilator 04/08/19 13:01 84 14 100/73 (82) 99 Ventilator 04/08/19 12:18 98 Ventilator 04/08/19 12:00 Mechanical Ventilator 04/08/19 12:00 99.4 78 14 80/56 (64) 97 Ventilator 99.4 04/08/19 11:25 98 Ventilator 04/08/19 11:00 74 16 91/66 (74) 98 Ventilator 04/08/19 10:00 76 16 87/63 (71) 98 Ventilator 04/08/19 09:00 78 17 104/64 (77) 99 Ventilator 04/08/19 08:57 99 Ventilator 04/08/19 08:02 99 Ventilator 04/08/19 08:00 99.5 76 18 103/65 (78) 98 Ventilator 99.5 04/08/19 08:00 Mechanical Ventilator 04/08/19 07:00 80 17 107/72 (84) 99 Ventilator 04/08/19 06:11 87 106/64 04/08/19 06:00 87 16 106/64 (78) 99 Ventilator 04/08/19 05:00 70 18 103/92 (96) 94 Ventilator 04/08/19 04:20 100 Ventilator 04/08/19 04:00 Mechanical Ventilator 04/08/19 04:00 98.5 72 17 96/54 (68) 97 Ventilator 98.5 04/08/19 03:00 86 18 122/71 (88) 99 Ventilator 04/08/19 02:00 76 16 105/69 (81) 100 Ventilator 04/08/19 02:00 100 Ventilator 04/08/19 01:00 78 17 119/73 (88) 100 Ventilator 04/08/19 00:07 100 Ventilator 04/08/19 00:00 98.9 75 16 101/67 (78) 99 Ventilator 98.9 04/07/19 23:59 Mechanical Ventilator 04/07/19 23:00 75 16 93/66 (75) 99 Ventilator 04/07/19 22:00 82 18 126/74 (91) 100 Ventilator 04/07/19 21:20 81 128/76 04/07/19 21:00 80 18 128/76 (93) 100 Ventilator 04/07/19 20:12 100 Ventilator 04/07/19 20:00 Mechanical Ventilator 04/07/19 20:00 98.7 80 18 120/77 (91) 100 Ventilator 98.7 04/07/19 19:00 82 18 120/79 (93) 100 Ventilator 04/07/19 18:01 100 Ventilator 04/07/19 18:00 73 16 118/73 (88) 100 Ventilator 04/07/19 17:00 77 16 86/63 (71) 100 Ventilator 04/07/19 16:08 80 16 97/66 (76) 100 Ventilator 04/07/19 16:05 Mechanical Ventilator 04/07/19 15:35 99 Ventilator 04/07/19 15:00 99.1 80 16 96/66 (76) 99 Ventilator 99.1 04/07/19 13:59 84 18 104/67 (79) 99 Ventilator 04/07/19 13:28 82 107/68 04/07/19 13:00 82 16 107/68 (81) 99 Ventilator 04/07/19 12:00 79 16 106/66 (79) 99 Ventilator 04/07/19 12:00 Mechanical Ventilator 04/07/19 11:50 99 Ventilator 04/07/19 11:00 99.4 75 16 110/68 (82) 99 Ventilator 99.4 04/07/19 10:00 79 16 100/66 (77) 99 Ventilator 04/07/19 09:04 100 Ventilator 04/07/19 09:00 82 16 102/68 (79) 99 Ventilator 04/07/19 08:30 99 Ventilator 04/07/19 08:00 77 16 97/74 (82) 99 Ventilator 04/07/19 08:00 Mechanical Ventilator 04/07/19 07:00 98.8 99 16 96/70 (79) 99 Ventilator 98.8 Laboratory Laboratory Laboratory Tests Test 04/07/19 17:08 04/07/19 17:25 04/07/19 23:55 04/08/19 04:30 Glucose (Fingerstick) 80 mg/dL (70-99) 97 mg/dL (70-99) Urine Opiates Screen Neg (NEG) Urine Methadone Screen Neg (NEG) Urine Barbiturates Neg (NEG) Urine Phencyclidine Screen Neg (NEG) Urine Amphetamine/Methamphetamine Neg (NEG) Urine Benzodiazepines Screen Neg (NEG) Urine Cocaine Screen Neg (NEG) Urine Cannabinoids Screen Neg (NEG) Urine Ethyl Alcohol Neg (NEG) White Blood Count 11.3 x10^3/uL (4.0-11.0) Red Blood Count 4.37 x10^6/uL (4.30-5.70) Hemoglobin 13.4 g/dL (13.0-17.5) Hematocrit 39.4 % (39.0-53.0) Mean Corpuscular Volume 90 fL (79-100) Mean Corpuscular Hemoglobin 31 pg (25-35) Mean Corpuscular Hemoglobin Concent 34 g/dL (31-37) Red Cell Distribution Width 14.5 % (11.5-14.5) Platelet Count 223 x10^3/uL (140-400) Neutrophils (%) (Auto) 76 % (31-73) Lymphocytes (%) (Auto) 14 % (24-48) Monocytes (%) (Auto) 8 % (0-9) Eosinophils (%) (Auto) 2 % (0-3) Basophils (%) (Auto) 0 % (0-3) Neutrophils # (Auto) 8.6 x10^3/uL (1.8-7.7) Lymphocytes # (Auto) 1.6 x10^3/uL (1.0-4.8) Monocytes # (Auto) 0.9 x10^3/uL (0.0-1.1) Eosinophils # (Auto) 0.2 x10^3/uL (0.0-0.7) Basophils # (Auto) 0.0 x10^3/uL (0.0-0.2) Sodium Level 140 mmol/L (136-145) Potassium Level 3.5 mmol/L (3.5-5.1) Chloride Level 109 mmol/L (98-107) Carbon Dioxide Level 21 mmol/L (21-32) Anion Gap 10 (6-14) Blood Urea Nitrogen 16 mg/dL (8-26) Creatinine 0.8 mg/dL (0.7-1.3) Estimated GFR (Cockcroft-Gault) 95.0 Glucose Level 119 mg/dL (70-99) Calcium Level 7.8 mg/dL (8.5-10.1) Phosphorus Level 3.1 mg/dL (2.6-4.7) Magnesium Level 1.9 mg/dL (1.8-2.4) Test 04/08/19 06:13 04/08/19 08:00 04/08/19 12:45 04/08/19 14:00 Glucose (Fingerstick) 112 mg/dL (70-99) 111 mg/dL (70-99) O2 Saturation 98 % (92-99) Arterial Blood pH 7.42 (7.35-7.45) Arterial Blood pCO2 at Patient Temp 30 mmHg (35-46) Arterial Blood pO2 at Patient Temp 106 mmHg (65-108) Arterial Blood HCO3 19 mmol/L (21-28) Arterial Blood Base Excess -4 mmol/L (-3-3) Magnesium Level 2.0 mg/dL (1.8-2.4) Medication Medications Current Medications Insulin Human Lispro (HumaLOG) 0-7 UNITS Q6HRS SQ ; Start 04/07/19 at 18:00 Potassium Bicarbonate (Potassium Effervescent Tablet) 20 meq 1X ONCE PEG Last administered on 04/08/19at 16:20; Start 04/08/19 at 14:30; Stop 04/08/19 at 14:31; Status DC Sodium Chloride 1,000 ml @ 100 mls/hr Q10H IV Last administered on 04/08/19at 13:12; Start 04/07/19 at 17:15 Comment Review of Relevant I have reviewed the following items aden (where applicable) has been applied. VANESSA EASTMAN MD Apr 08, 2019 16:25
[2019-04-08] MEDS: LORazepam 0.5 MG TABLET PO SCH (21:40)
[2019-04-08] MEDS: ENOXAPARIN 40 MG/0.4 ML SYRINGE. SQ SCH (21:40)
[2019-04-09] VITALS (24 sets, daily range): BP systolic 84–135; BP diastolic 53–81
[2019-04-09] MEDS: PROPOFOL 100 ML IV PRN ×2 (04:24→21:39)
[2019-04-09] MEDS: INSULIN LISPRO 300 UNITS/3 ML VIAL. SQ SCH ×4 (06:00→18:00)
[2019-04-09] MEDS: dilTIAZem HCL 30 MG TABLET PO SCH ×3 (06:02→21:05)
--- NOTE | 2019-04-09 08:50 | PDOC ---
PULMONARY PROGRESS NOTES Subjective PT INTUBATED SEDATED Vitals Vital Signs Date Time Temp Pulse Resp B/P (MAP) Pulse Ox O2 Delivery O2 Flow Rate FiO2 04/09/19 08:25 98 Ventilator 04/09/19 08:00 73 19 116/66 (83) 04/09/19 07:00 99.2 99.2 Lungs: Clear Cardiovascular: S1 Abdomen: Soft Extremities: Other (EDEMA) Skin: Warm Labs Laboratory Tests Test 04/07/19 11:27 04/07/19 17:08 04/07/19 17:25 04/07/19 23:55 Glucose (Fingerstick) 91 mg/dL (70-99) 80 mg/dL (70-99) 97 mg/dL (70-99) Urine Opiates Screen Neg (NEG) Urine Methadone Screen Neg (NEG) Urine Barbiturates Neg (NEG) Urine Phencyclidine Screen Neg (NEG) Urine Amphetamine/Methamphetamine Neg (NEG) Urine Benzodiazepines Screen Neg (NEG) Urine Cocaine Screen Neg (NEG) Urine Cannabinoids Screen Neg (NEG) Urine Ethyl Alcohol Neg (NEG) Test 04/08/19 04:30 04/08/19 06:13 04/08/19 08:00 04/08/19 12:45 White Blood Count 11.3 x10^3/uL (4.0-11.0) Red Blood Count 4.37 x10^6/uL (4.30-5.70) Hemoglobin 13.4 g/dL (13.0-17.5) Hematocrit 39.4 % (39.0-53.0) Mean Corpuscular Volume 90 fL (79-100) Mean Corpuscular Hemoglobin 31 pg (25-35) Mean Corpuscular Hemoglobin Concent 34 g/dL (31-37) Red Cell Distribution Width 14.5 % (11.5-14.5) Platelet Count 223 x10^3/uL (140-400) Neutrophils (%) (Auto) 76 % (31-73) Lymphocytes (%) (Auto) 14 % (24-48) Monocytes (%) (Auto) 8 % (0-9) Eosinophils (%) (Auto) 2 % (0-3) Basophils (%) (Auto) 0 % (0-3) Neutrophils # (Auto) 8.6 x10^3/uL (1.8-7.7) Lymphocytes # (Auto) 1.6 x10^3/uL (1.0-4.8) Monocytes # (Auto) 0.9 x10^3/uL (0.0-1.1) Eosinophils # (Auto) 0.2 x10^3/uL (0.0-0.7) Basophils # (Auto) 0.0 x10^3/uL (0.0-0.2) Sodium Level 140 mmol/L (136-145) Potassium Level 3.5 mmol/L (3.5-5.1) Chloride Level 109 mmol/L (98-107) Carbon Dioxide Level 21 mmol/L (21-32) Anion Gap 10 (6-14) Blood Urea Nitrogen 16 mg/dL (8-26) Creatinine 0.8 mg/dL (0.7-1.3) Estimated GFR (Cockcroft-Gault) 95.0 Glucose Level 119 mg/dL (70-99) Calcium Level 7.8 mg/dL (8.5-10.1) Phosphorus Level 3.1 mg/dL (2.6-4.7) Magnesium Level 1.9 mg/dL (1.8-2.4) Glucose (Fingerstick) 112 mg/dL (70-99) 111 mg/dL (70-99) O2 Saturation 98 % (92-99) Arterial Blood pH 7.42 (7.35-7.45) Arterial Blood pCO2 at Patient Temp 30 mmHg (35-46) Arterial Blood pO2 at Patient Temp 106 mmHg (65-108) Arterial Blood HCO3 19 mmol/L (21-28) Arterial Blood Base Excess -4 mmol/L (-3-3) Test 04/08/19 14:00 04/08/19 18:15 04/09/19 01:10 04/09/19 06:07 Magnesium Level 2.0 mg/dL (1.8-2.4) Glucose (Fingerstick) 105 mg/dL (70-99) 132 mg/dL (70-99) 131 mg/dL (70-99) Laboratory Tests Test 04/08/19 12:45 04/08/19 14:00 04/08/19 18:15 04/09/19 01:10 Glucose (Fingerstick) 111 mg/dL (70-99) 105 mg/dL (70-99) 132 mg/dL (70-99) Magnesium Level 2.0 mg/dL (1.8-2.4) Test 04/09/19 06:07 Glucose (Fingerstick) 131 mg/dL (70-99) Medications Active Scripts Medications Dose Route/Sig Max Daily Dose Days Date Category Pyridium (Phenazopyridine Hcl) 200 Mg Tablet 200 Mg PO TID 12/17/16 Rx Cipro (Ciprofloxacin Hcl) 250 Mg Tablet 1 Tab PO BID 12/17/16 Rx Ciprofloxacin Hcl 500 Mg Tablet 500 Mg PO BID 07/13/15 Rx Ativan (Lorazepam) 0.5 Mg Tablet 0.5 Mg PO HS 07/11/15 Reported Tamsulosin Hcl 0.4 Mg Cap.er.24h 0.4 Mg PO DAILY 05/08/15 Reported Multi-Day Vitamins (Multivitamin) 1 Each Tablet 1 Tab PO DAILY 04/17/15 Reported Tylenol (Acetaminophen) 325 Mg Tablet 2 Tab PO BID PRN 02/07/15 Reported Losartan Potassium 50 Mg Tablet 1 Tab PO DAILY 02/07/15 Reported Zantac (Ranitidine Hcl) 150 Mg Tablet 1 Tab PO DAILY 02/07/15 Reported Aspirin 81 Mg Tab.chew 1 Tab PO DAILY 02/07/15 Reported Impression . IMPRESSION: 1. Gca-au-oxwnomrw arrest. 2. Respiratory failure secondary to above. 3. Hypoglycemia. 4. History of autism. 5. Hypertension. 6. Benign prostatic hypertrophy. 7. METABOLIC ENCE POA 8. SEIZURES Plan . TRIAL TODAY POSSIBLE EXTUBATION CONTINUE SUPPORT FOR NOW FOLLOW CARD INPUT REPEAT CXR DVT AND GI PROPH RAKESH DICKINSON MD Apr 09, 2019 08:50
[2019-04-09] MEDS: MULTIVITAMIN with MINERAL TABLET. PO SCH (09:08)
[2019-04-09] MEDS: TAMSULOSIN 0.4 MG CAP.ER.24H. PO SCH (09:08)
[2019-04-09] MEDS: ASPIRIN CHEWABLE 81 MG TABLET. PO SCH (09:08)
[2019-04-09] MEDS: PANTOPRAZOLE IV PUSH 40 MG VIAL. IVP SCH (09:08)
[2019-04-09] MEDS: IV NORMAL SALINE 1000ML BAG 1,000 ML IV SCH ×2 (09:09→19:48)
[2019-04-09 09:10] LABS: BASE EXCESS ABG -2 mmol/L (-3-3); HCO3 ABG 21 mmol/L (21-28); PCO2 ABG 32 mmHg (35-46); PO2 ABG 92 mmHg (65-108); SAT O2 ABG 97 % (92-99)
--- NOTE | 2019-04-09 09:41 | PDOC ---
PROGRESS NOTES Subjective Subjective sedated on vent Objective Objective Vital Signs Date Time Temp Pulse Resp B/P (MAP) Pulse Ox O2 Delivery O2 Flow Rate FiO2 04/09/19 08:25 98 Ventilator 04/09/19 08:00 73 19 116/66 (83) 04/09/19 07:00 99.2 99.2 Intake and Output 04/09/19 07:00 Intake Total 4286.19 ml Output Total 1045 ml Balance 3241.19 ml Intake IV Total 2549.19 ml Tube Feeding 1337 ml Other 400 ml Output Urine Total 1045 ml Gastric Drainage Total 0 ml Physical Exam Physical Exam orally intubated On Vent and propofol sedation Abdomen: Soft Heart: Regular rate (SR), Normal S1, Normal S2, Other (2/6 systolic murmur to LLS border) Extremities: No cyanosis, No edema General: Other (sedated, intubated) HEENT: Atraumatic, Mucous membr. moist/pink Lungs: Clear to auscultation, Other (intubated with vent) MUSCULOSKELETAL: Osteoarthritic changes both hands Neuro: Other (sedated) Skin: No breakdown, No significant lesion COMMENT otto Diagnosis Problem List Problems Medical Problems: (1) Altered level of consciousness Status: Acute (2) BPH (benign prostatic hyperplasia) Status: Chronic (3) GERD (gastroesophageal reflux disease) Status: Chronic (4) HTN (hypertension) Status: Chronic (5) Hyperglycemia Status: Acute (6) Hypoglycemia Status: Acute Assessment Assessment Problems Medical Problems: (1) Altered level of consciousness Status: Acute (2) BPH (benign prostatic hyperplasia) Status: Chronic (3) GERD (gastroesophageal reflux disease) Status: Chronic (4) HTN (hypertension) Status: Chronic (5) Hyperglycemia Status: Acute (6) Hypoglycemia Status: Acute Assessment/Plan HYPOGLYCEMIA causing MINIMAL responsiveness, intubated for airway protection . HYPOTENSION, post intubation, responded to fluid . Seizures? PSVT GERD, BPH, HTN - stable CTA head./neck: 1. No large vessel occlusion. 2. Minimal patchy chronic plaque at the origin of the right internal carotid artery without significant stenosis. 3. Minimal calcified atherosclerotic plaque at the cavernous segments of the right and left internal carotid arteries bilaterally without significant stenosis. Plan:EEG neg for seizures On vent, weaning today, spoke with pulmonary cardiology consult appreciated Neuro consult appreciated spoke with people from assisted spoke with RN CTA noted no stroke or aneurysm Plan Plan of Care Problems Medical Problems: (1) Altered level of consciousness Status: Acute (2) BPH (benign prostatic hyperplasia) Status: Chronic (3) GERD (gastroesophageal reflux disease) Status: Chronic (4) HTN (hypertension) Status: Chronic (5) Hyperglycemia Status: Acute (6) Hypoglycemia Status: Acute Comment Review of Relevant I have reviewed the following items aden (where applicable) has been applied. Labs Laboratory Tests Test 04/08/19 12:45 04/08/19 14:00 04/08/19 18:15 04/09/19 01:10 Glucose (Fingerstick) 111 mg/dL (70-99) 105 mg/dL (70-99) 132 mg/dL (70-99) Magnesium Level 2.0 mg/dL (1.8-2.4) Test 04/09/19 06:07 Glucose (Fingerstick) 131 mg/dL (70-99) Medications Current Medications Potassium Bicarbonate (Potassium Effervescent Tablet) 20 meq 1X ONCE PEG Last administered on 04/08/19at 16:20; Start 04/08/19 at 14:30; Stop 04/08/19 at 14:31; Status DC Vitals/I & O Vital Sign - Last 24 Hours 04/08/19 04/08/19 04/08/19 04/08/19 10:00 11:00 11:25 12:00 Temp 99.4 99.4 Pulse 76 74 78 Resp 16 16 14 B/P (MAP) 87/63 (71) 91/66 (74) 80/56 (64) Pulse Ox 98 98 98 97 O2 Delivery Ventilator Ventilator Ventilator Ventilator 04/08/19 04/08/19 04/08/19 04/08/19 12:00 12:18 13:01 14:00 Pulse 84 83 Resp 14 14 B/P (MAP) 100/73 (82) 106/68 (81) Pulse Ox 98 99 99 O2 Delivery Mechanical Ventilator Ventilator Ventilator Ventilator 04/08/19 04/08/19 04/08/19 04/08/19 15:34 16:00 16:00 16:20 Temp 99.9 99.9 Pulse 84 79 Resp 18 B/P (MAP) 112/74 (87) 112/74 Pulse Ox 98 99 O2 Delivery Ventilator Mechanical Ventilator Ventilator 04/08/19 04/08/19 04/08/19 04/08/19 17:00 17:31 18:00 19:00 Pulse 74 75 79 Resp 16 16 18 B/P (MAP) 92/70 (77) 102/68 (79) 100/62 (75) Pulse Ox 99 98 99 98 O2 Delivery Ventilator Ventilator Ventilator Ventilator 04/08/19 04/08/19 04/08/19 04/08/19 19:46 20:00 20:00 21:00 Temp 98.8 98.8 Pulse 82 79 Resp 16 21 B/P (MAP) 89/90 (90) 101/63 (76) Pulse Ox 98 98 98 O2 Delivery Ventilator Ventilator Mechanical Ventilator Ventilator 04/08/19 04/08/19 04/08/19 04/08/19 21:40 22:00 23:00 23:52 Pulse 82 81 75 Resp 23 19 B/P (MAP) 101/63 90/62 (71) 102/58 (73) Pulse Ox 98 98 100 O2 Delivery Ventilator Ventilator Ventilator 04/08/19 04/09/19 04/09/19 04/09/19 23:59 00:00 01:00 02:00 Temp 99.6 99.6 Pulse 76 74 80 Resp 20 19 22 B/P (MAP) 115/70 (85) 105/67 (80) 111/78 (89) Pulse Ox 98 98 98 O2 Delivery Mechanical Ventilator Ventilator Ventilator Ventilator 04/09/19 04/09/19 04/09/19 04/09/19 03:00 03:54 04:00 04:00 Temp 99.5 99.5 Pulse 81 78 Resp 22 17 B/P (MAP) 109/73 (85) 115/60 (78) Pulse Ox 98 98 98 O2 Delivery Ventilator Ventilator Ventilator Mechanical Ventilator 04/09/19 04/09/19 04/09/19 04/09/19 05:00 06:00 06:08 07:00 Temp 99.2 99.2 Pulse 84 80 79 74 Resp 13 16 17 B/P (MAP) 106/66 (79) 102/64 (77) 102/64 89/53 (65) Pulse Ox 98 98 97 O2 Delivery Ventilator Ventilator Ventilator 04/09/19 04/09/19 04/09/19 08:00 08:00 08:25 Pulse 73 Resp 19 B/P (MAP) 116/66 (83) Pulse Ox 99 98 O2 Delivery Ventilator Mechanical Ventilator Ventilator Intake and Output 04/08/19 04/08/19 04/09/19 15:00 23:00 07:00 Intake Total 200 ml 1676.19 ml 2410 ml Output Total 365 ml 370 ml 310 ml Balance -165 ml 1306.19 ml 2100 ml ROSALVA GOODWIN MD Apr 09, 2019 09:41
[2019-04-09 10:03] LABS: FIO2 ABG 40%
--- NOTE | 2019-04-09 13:38 | PDOC ---
PROGRESS NOTES Assessment Assessment Metabolic encephalopathy. Respiratory failure. Seizure or seizure like episode, provoked. Hypoglycemia, glucose level 20. Hyperglycemia, glucose level 350. DM. HTN. Intellectual disability. RECOMMENDATIONS/PLAN: Life support in ICU at the present time. Treat medical diseases. Ativan 1 mg IV PRN q4h if has further seizure. Keppra 500 mg IV q12h if has further seizures. EEG on 04/08/19: Encephalopathy. HISTORY OF PRESENT ILLNESS This is a 74-y-old male patient who is a resident of [facility] with above listed diseases and intellectual disability was found by the staff in the bed unresponsive. EMS arrived and noted his glucose level was at 20, so he was administrated D50 but his mentation remains poor. He was then intubated to secure airway due to respiratory distress/failure and he was brought to the ER of [facility]. Upon admission he was noted with SVT in ICU lasting about 3 minutes. Adenosine x1 was given. Neurology was requested for consultation for a seizure or seizure like episode. He was reportedly to have vague history of seizure in the past, but not AEDs. His HCT and CTA are unremarkable. On vent stable on 04/09/19. PAST MEDICAL HISTORY Cardiovascular: HTN CENTRAL NERVOUS SYSTEM: Mental retardation. GI: GERD Musculoskeletal: Osteoarthritis Renal/: UTI, Benign prostatic enlargement. PAST SURGICAL HISTORY TURP; ligia fundoplication. FAMILY HISTORY No information is available at this time. SOCIAL HISTORY Smoke: No ALCOHOL: none Drugs: None Lives: Alone (assited living) ALLERGIES Coded Allergies: Cephalosporins (Verified Allergy, Intermediate, 07/13/15) Penicillins (Verified Allergy, Intermediate, 07/13/15) carbamazepine (Verified Allergy, Intermediate, 07/13/15) meropenem (Verified Allergy, Intermediate, 07/12/15) BETA LACTAMS penicillamine (Verified Allergy, Intermediate, 07/13/15) I S O L A T I O N *CONTACT* (Verified Allergy, Unknown, 07/11/15), mrsa + MEDICATIONS: Refer to MAR REVIEW OF SYSTEMS: Constitutional: No malnutrition, weight loss, cachexia. Head: No traumatic brain injury. Skin: No edema, or rash. Ear: No infection. Eyes: No vision loss or color blindness. Nose: No bleeding or purulent discharges. Hearing: No hearing decrease. Neck: No injury. Cardiac: HTN. Pulmonary: No COPD. GI: No GI ulcer, GI bleeding. Urinary/genital: UTI. Endocrinologic: Diabetes Mellitus? Skeletomuscular: No muscular atrophy, deformity. Neurological: see HP. Psychiatric: Denies drug use/abuse. Otherwise, not -tbebt review of systems. PHYSICAL EXAMINATION: General appearance is in subacute distress. HEENT: Normocephalic and nontraumatic. Eyes, nose, ears, and throat are unremarkable. Neck is supple. No lymphadenopathy. No crepitus. Cardiovascular: S1, S2, PAC appreciated. Pulmonary: On vent. Abdomen: Bowel sounds are positive. Extremities: No rash, lesions, or edema. NEUROLOGICAL EXAMINATION: Unresponsive. On vent. Not oriented to time, place and person. PERRL. EOMI not elicited. CN: no focal findings. Muscle tone: Decreased. Muscle strength: No movements to stimuli. DTR: 0-1 Plantar reflex: No response bilaterally Gait: Unable to walk at the present time. Sensory exam: no response. Not able to access cerebellar signs. F-T-N test not performed due to unresponsiveness. Objective Objective Vital Signs Date Time Temp Pulse Resp B/P (MAP) Pulse Ox O2 Delivery O2 Flow Rate FiO2 04/09/19 13:36 79 105/65 04/09/19 13:15 98 Ventilator 04/09/19 11:00 15 04/09/19 07:00 99.2 99.2 Intake and Output 04/09/19 06:59 Intake Total 4286.19 ml Output Total 1095 ml Balance 3191.19 ml Intake IV Total 2549.19 ml Tube Feeding 1337 ml Other 400 ml Output Urine Total 1095 ml Gastric Drainage Total 0 ml Vitals Signs Vitals VS - Last 72 Hours, by Label Date Time Temp Pulse Resp B/P (MAP) Pulse Ox O2 Delivery O2 Flow Rate FiO2 04/09/19 13:36 79 105/65 04/09/19 13:15 98 Ventilator 04/09/19 11:00 74 15 99/65 (76) 96 Ventilator 04/09/19 10:00 76 19 111/66 (81) 97 Ventilator 04/09/19 09:44 97 Ventilator 04/09/19 09:00 74 16 84/59 (67) 97 Ventilator 04/09/19 08:25 98 Ventilator 04/09/19 08:00 Mechanical Ventilator 8/16/19 08:00 73 19 116/66 (83) 99 Ventilator 04/09/19 07:00 99.2 74 17 89/53 (65) 97 Ventilator 99.2 04/09/19 06:08 79 102/64 04/09/19 06:00 80 16 102/64 (77) 98 Ventilator 04/09/19 05:00 84 13 106/66 (79) 98 Ventilator 04/09/19 04:00 Mechanical Ventilator 04/09/19 04:00 99.5 78 17 115/60 (78) 98 Ventilator 99.5 04/09/19 03:54 98 Ventilator 04/09/19 03:00 81 22 109/73 (85) 98 Ventilator 04/09/19 02:00 80 22 111/78 (89) 98 Ventilator 04/09/19 01:00 74 19 105/67 (80) 98 Ventilator 04/09/19 00:00 99.6 76 20 115/70 (85) 98 Ventilator 99.6 04/08/19 23:59 Mechanical Ventilator 04/08/19 23:52 100 Ventilator 04/08/19 23:00 75 19 102/58 (73) 98 Ventilator 04/08/19 22:00 81 23 90/62 (71) 98 Ventilator 04/08/19 21:40 82 101/63 04/08/19 21:00 79 21 101/63 (76) 98 Ventilator 04/08/19 20:00 Mechanical Ventilator 04/08/19 20:00 98.8 82 16 89/90 (90) 98 Ventilator 98.8 04/08/19 19:46 98 Ventilator 04/08/19 19:00 79 18 100/62 (75) 98 Ventilator 04/08/19 18:00 75 16 102/68 (79) 99 Ventilator 04/08/19 17:31 98 Ventilator 04/08/19 17:00 74 16 92/70 (77) 99 Ventilator 04/08/19 16:20 79 112/74 04/08/19 16:00 99.9 84 18 112/74 (87) 99 Ventilator 99.9 04/08/19 16:00 Mechanical Ventilator 04/08/19 15:34 98 Ventilator 04/08/19 14:00 83 14 106/68 (81) 99 Ventilator 04/08/19 13:01 84 14 100/73 (82) 99 Ventilator 04/08/19 12:18 98 Ventilator 04/08/19 12:00 Mechanical Ventilator 04/08/19 12:00 99.4 78 14 80/56 (64) 97 Ventilator 99.4 04/08/19 11:25 98 Ventilator 04/08/19 11:00 74 16 91/66 (74) 98 Ventilator 04/08/19 10:00 76 16 87/63 (71) 98 Ventilator 04/08/19 09:00 78 17 104/64 (77) 99 Ventilator 04/08/19 08:57 99 Ventilator 04/08/19 08:02 99 Ventilator 04/08/19 08:00 99.5 76 18 103/65 (78) 98 Ventilator 99.5 04/08/19 08:00 Mechanical Ventilator 04/08/19 07:00 80 17 107/72 (84) 99 Ventilator Laboratory Laboratory Laboratory Tests Test 04/08/19 14:00 04/08/19 18:15 04/09/19 01:10 04/09/19 06:07 Magnesium Level 2.0 mg/dL (1.8-2.4) Glucose (Fingerstick) 105 mg/dL (70-99) 132 mg/dL (70-99) 131 mg/dL (70-99) Test 04/09/19 08:00 O2 Saturation 97 % (92-99) Arterial Blood pH 7.44 (7.35-7.45) Arterial Blood pCO2 at Patient Temp 32 mmHg (35-46) Arterial Blood pO2 at Patient Temp 92 mmHg (65-108) Arterial Blood HCO3 21 mmol/L (21-28) Arterial Blood Base Excess -2 mmol/L (-3-3) FiO2 40% Medication Medications Current Medications Potassium Bicarbonate (Potassium Effervescent Tablet) 20 meq 1X ONCE PEG Last administered on 04/08/19at 16:20; Start 04/08/19 at 14:30; Stop 04/08/19 at 14:31; Status DC Comment Review of Relevant I have reviewed the following items aden (where applicable) has been applied. VANESSA EASTMAN MD Apr 09, 2019 13:38
--- NOTE | 2019-04-09 18:11 | NUR ---
Weaning trial. Patient had a lot of anxiety during weaning trial. Tube feed was turned off during wean trial, and patient still vomited tube feed. ABG was not able to be obtained due to difficulty r/t patient vasculature. Propofol was turned back on.
[2019-04-09] MEDS: LORazepam 0.5 MG TABLET PO SCH ×2 (20:11→21:05)
[2019-04-09] MEDS: ENOXAPARIN 40 MG/0.4 ML SYRINGE. SQ SCH (21:05)
[2019-04-10] VITALS (24 sets, daily range): BP systolic 82–118; BP diastolic 56–76
[2019-04-10] MEDS: IV NORMAL SALINE 1000ML BAG 1,000 ML IV SCH ×2 (05:19→16:00)
[2019-04-10 05:29] LABS: BASO % 0 % (0-3); EOS # 0.3 x10^3/uL (0.0-0.7); EOS % 2 % (0-3); HEMATOCRIT 34.7 % (39.0-53.0); HEMOGLOBIN 11.9 g/dL (13.0-17.5); LYMPH # 1.6 x10^3/uL (1.0-4.8); LYMPH % 13 % (24-48); MEAN CORPUSCULAR HEMOGLOBIN 31 pg (25-35); MEAN CORPUSCULAR HGB CONC 34 g/dL (31-37); MEAN CORPUSCULAR VOLUME 90 fL (79-100); MONO # 1.3 x10^3/uL (0.0-1.1); MONO % 10 % (0-9); NEUT # 9.3 x10^3/uL (1.8-7.7); NEUT % 74 % (31-73); PLATELET COUNT 209 x10^3/uL (140-400); RED BLOOD COUNT 3.85 x10^6/uL (4.30-5.70); RED CELL DISTRIBUTION WIDTH 14.6 % (11.5-14.5); WHITE BLOOD COUNT 12.5 x10^3/uL (4.0-11.0)
[2019-04-10] MEDS: INSULIN LISPRO 300 UNITS/3 ML VIAL. SQ SCH ×4 (05:54→18:00)
[2019-04-10 05:59] LABS: CALCIUM 7.7 mg/dL (8.5-10.1); CREATININE 0.8 mg/dL (0.7-1.3); POTASSIUM 3.6 mmol/L (3.5-5.1)
[2019-04-10] MEDS: dilTIAZem HCL 30 MG TABLET PO SCH ×3 (06:03→21:16)
--- NOTE | 2019-04-10 06:20 | PDOC ---
PULMONARY PROGRESS NOTES Subjective on vent, sedated on propofol, mod ett secretion, vomited on cpap trial yesterday, autistic Vitals Vital Signs Date Time Temp Pulse Resp B/P (MAP) Pulse Ox O2 Delivery O2 Flow Rate FiO2 04/10/19 06:03 83 04/10/19 05:26 98 Ventilator 04/10/19 05:00 16 101/71 (81) 04/10/19 04:00 99.0 99.0 Comments ros as mentioned as above discussed w rn other sys otherwise neg sedated on vent HEENT: Other (nc at perrl nose clear orally intubated neck no lad no thyromegaly) Lungs: Crackles Cardiovascular: S1, S2 Abdomen: Soft, Non-tender, Other (no mass) Extremities: Other (EDEMA) Skin: Warm Labs Laboratory Tests Test 04/08/19 08:00 04/08/19 12:45 04/08/19 14:00 04/08/19 18:15 O2 Saturation 98 % (92-99) Arterial Blood pH 7.42 (7.35-7.45) Arterial Blood pCO2 at Patient Temp 30 mmHg (35-46) Arterial Blood pO2 at Patient Temp 106 mmHg (65-108) Arterial Blood HCO3 19 mmol/L (21-28) Arterial Blood Base Excess -4 mmol/L (-3-3) Glucose (Fingerstick) 111 mg/dL (70-99) 105 mg/dL (70-99) Magnesium Level 2.0 mg/dL (1.8-2.4) Test 04/09/19 01:10 04/09/19 06:07 04/09/19 08:00 04/09/19 11:55 Glucose (Fingerstick) 132 mg/dL (70-99) 131 mg/dL (70-99) 136 mg/dL (70-99) O2 Saturation 97 % (92-99) Arterial Blood pH 7.44 (7.35-7.45) Arterial Blood pCO2 at Patient Temp 32 mmHg (35-46) Arterial Blood pO2 at Patient Temp 92 mmHg (65-108) Arterial Blood HCO3 21 mmol/L (21-28) Arterial Blood Base Excess -2 mmol/L (-3-3) FiO2 40% Test 04/09/19 17:23 04/10/19 00:10 04/10/19 05:00 04/10/19 05:53 Glucose (Fingerstick) 122 mg/dL (70-99) 122 mg/dL (70-99) 117 mg/dL (70-99) White Blood Count 12.5 x10^3/uL (4.0-11.0) Red Blood Count 3.85 x10^6/uL (4.30-5.70) Hemoglobin 11.9 g/dL (13.0-17.5) Hematocrit 34.7 % (39.0-53.0) Mean Corpuscular Volume 90 fL (79-100) Mean Corpuscular Hemoglobin 31 pg (25-35) Mean Corpuscular Hemoglobin Concent 34 g/dL (31-37) Red Cell Distribution Width 14.6 % (11.5-14.5) Platelet Count 209 x10^3/uL (140-400) Neutrophils (%) (Auto) 74 % (31-73) Lymphocytes (%) (Auto) 13 % (24-48) Monocytes (%) (Auto) 10 % (0-9) Eosinophils (%) (Auto) 2 % (0-3) Basophils (%) (Auto) 0 % (0-3) Neutrophils # (Auto) 9.3 x10^3/uL (1.8-7.7) Lymphocytes # (Auto) 1.6 x10^3/uL (1.0-4.8) Monocytes # (Auto) 1.3 x10^3/uL (0.0-1.1) Eosinophils # (Auto) 0.3 x10^3/uL (0.0-0.7) Basophils # (Auto) 0.0 x10^3/uL (0.0-0.2) Sodium Level 142 mmol/L (136-145) Potassium Level 3.6 mmol/L (3.5-5.1) Chloride Level 109 mmol/L (98-107) Carbon Dioxide Level 24 mmol/L (21-32) Anion Gap 9 (6-14) Blood Urea Nitrogen 16 mg/dL (8-26) Creatinine 0.8 mg/dL (0.7-1.3) Estimated GFR (Cockcroft-Gault) 95.0 Glucose Level 127 mg/dL (70-99) Calcium Level 7.7 mg/dL (8.5-10.1) Laboratory Tests Test 04/09/19 08:00 04/09/19 11:55 04/09/19 17:23 04/10/19 00:10 O2 Saturation 97 % (92-99) Arterial Blood pH 7.44 (7.35-7.45) Arterial Blood pCO2 at Patient Temp 32 mmHg (35-46) Arterial Blood pO2 at Patient Temp 92 mmHg (65-108) Arterial Blood HCO3 21 mmol/L (21-28) Arterial Blood Base Excess -2 mmol/L (-3-3) FiO2 40% Glucose (Fingerstick) 136 mg/dL (70-99) 122 mg/dL (70-99) 122 mg/dL (70-99) Test 04/10/19 05:00 04/10/19 05:53 White Blood Count 12.5 x10^3/uL (4.0-11.0) Red Blood Count 3.85 x10^6/uL (4.30-5.70) Hemoglobin 11.9 g/dL (13.0-17.5) Hematocrit 34.7 % (39.0-53.0) Mean Corpuscular Volume 90 fL (79-100) Mean Corpuscular Hemoglobin 31 pg (25-35) Mean Corpuscular Hemoglobin Concent 34 g/dL (31-37) Red Cell Distribution Width 14.6 % (11.5-14.5) Platelet Count 209 x10^3/uL (140-400) Neutrophils (%) (Auto) 74 % (31-73) Lymphocytes (%) (Auto) 13 % (24-48) Monocytes (%) (Auto) 10 % (0-9) Eosinophils (%) (Auto) 2 % (0-3) Basophils (%) (Auto) 0 % (0-3) Neutrophils # (Auto) 9.3 x10^3/uL (1.8-7.7) Lymphocytes # (Auto) 1.6 x10^3/uL (1.0-4.8) Monocytes # (Auto) 1.3 x10^3/uL (0.0-1.1) Eosinophils # (Auto) 0.3 x10^3/uL (0.0-0.7) Basophils # (Auto) 0.0 x10^3/uL (0.0-0.2) Sodium Level 142 mmol/L (136-145) Potassium Level 3.6 mmol/L (3.5-5.1) Chloride Level 109 mmol/L (98-107) Carbon Dioxide Level 24 mmol/L (21-32) Anion Gap 9 (6-14) Blood Urea Nitrogen 16 mg/dL (8-26) Creatinine 0.8 mg/dL (0.7-1.3) Estimated GFR (Cockcroft-Gault) 95.0 Glucose Level 127 mg/dL (70-99) Calcium Level 7.7 mg/dL (8.5-10.1) Glucose (Fingerstick) 117 mg/dL (70-99) Medications Active Scripts Medications Dose Route/Sig Max Daily Dose Days Date Category Pyridium (Phenazopyridine Hcl) 200 Mg Tablet 200 Mg PO TID 12/17/16 Rx Cipro (Ciprofloxacin Hcl) 250 Mg Tablet 1 Tab PO BID 12/17/16 Rx Ciprofloxacin Hcl 500 Mg Tablet 500 Mg PO BID 07/13/15 Rx Ativan (Lorazepam) 0.5 Mg Tablet 0.5 Mg PO HS 07/11/15 Reported Tamsulosin Hcl 0.4 Mg Cap.er.24h 0.4 Mg PO DAILY 05/08/15 Reported Multi-Day Vitamins (Multivitamin) 1 Each Tablet 1 Tab PO DAILY 04/17/15 Reported Tylenol (Acetaminophen) 325 Mg Tablet 2 Tab PO BID PRN 02/07/15 Reported Losartan Potassium 50 Mg Tablet 1 Tab PO DAILY 02/07/15 Reported Zantac (Ranitidine Hcl) 150 Mg Tablet 1 Tab PO DAILY 02/07/15 Reported Aspirin 81 Mg Tab.chew 1 Tab PO DAILY 02/07/15 Reported Comments 04/06 cxr no infilt Impression . IMPRESSION: 1. Qiz-ka-zjfxonuo arrest. 2. Respiratory failure secondary to above. 3. Hypoglycemia. 4. History of autism. 5. Hypertension. 6. Benign prostatic hypertrophy. 7. METABOLIC ENCE POA 8. SEIZURES Plan . cont vent support, setting reviewed, decrease sedation, sbt today cxr today will review CONTINUE SUPPORT FOR NOW FOLLOW CARD INPUT DVT AND GI PROPH elevate hob discussed w rn rt SILVIO JOAQUIN MD Apr 10, 2019 06:20
[2019-04-10] MEDS: PROPOFOL 100 ML IV PRN (07:12)
[2019-04-10] MEDS: PANTOPRAZOLE IV PUSH 40 MG VIAL. IVP SCH (07:47)
[2019-04-10] MEDS: ASPIRIN CHEWABLE 81 MG TABLET. PO SCH (08:00)
[2019-04-10] MEDS: TAMSULOSIN 0.4 MG CAP.ER.24H. PO SCH (08:00)
[2019-04-10] MEDS: MULTIVITAMIN with MINERAL TABLET. PO SCH (08:00)
[2019-04-10 09:08] LABS: BASE EXCESS ABG -3 mmol/L (-3-3); HCO3 ABG 21 mmol/L (21-28); PCO2 ABG 34 mmHg (35-46); PO2 ABG 87 mmHg (65-108); SAT O2 ABG 97 % (92-99)
[2019-04-10 09:10] LABS: FIO2 ABG 40
--- NOTE | 2019-04-10 09:32 | NUR ---
Sedation turned off at this time for trial. Feeding on hold as well at this time as patient vomited during trial yesterday.
--- NOTE | 2019-04-10 10:48 | NUR ---
Weaning Trial started at 1025. During the trial the Pt became tachycardic, O2 saturation dropped into lower 90's. respirations climbed to 40+, tidal volume below 400 with readings between 168 and 356. Patient re-sedated and vent placed back on Assist Control. Dr. Bryan at beside at 1045 and notified of results of trial.
[2019-04-10] MEDS ORDERED: IPRATRPIUM/ALBUTEROL 0.5/2.5MG 3 ML NEBU. NEB ONE (11:00)
--- NOTE | 2019-04-10 11:10 | PDOC ---
PROGRESS NOTES Subjective Subjective failed weaning trial Objective Objective Vital Signs Date Time Temp Pulse Resp B/P (MAP) Pulse Ox O2 Delivery O2 Flow Rate FiO2 04/10/19 10:00 82 29 118/75 (89) 97 Ventilator 04/10/19 07:00 98.1 98.1 Intake and Output 04/10/19 07:00 Intake Total 2568.6 ml Output Total 2495 ml Balance 73.6 ml Intake Oral 50 ml IV Total 793.6 ml Tube Feeding 1525 ml Other 200 ml Output Urine Total 2195 ml Gastric Drainage Total 100 ml Emesis 200 ml Physical Exam Physical Exam orally intubated On Vent and propofol sedation Abdomen: Soft Heart: Regular rate (SR), Normal S1, Normal S2, Other (2/6 systolic murmur to LLS border) Extremities: No cyanosis, No edema General: Other (sedated, intubated) HEENT: Atraumatic, Mucous membr. moist/pink Lungs: Other (intubated with vent, coarse lung sounds) MUSCULOSKELETAL: Osteoarthritic changes both hands Neuro: Other (sedated) Skin: No breakdown, No significant lesion COMMENT otto Diagnosis Problem List Problems Medical Problems: (1) Altered level of consciousness Status: Acute (2) BPH (benign prostatic hyperplasia) Status: Chronic (3) GERD (gastroesophageal reflux disease) Status: Chronic (4) HTN (hypertension) Status: Chronic (5) Hyperglycemia Status: Acute (6) Hypoglycemia Status: Acute Assessment Assessment Problems Medical Problems: (1) Altered level of consciousness Status: Acute (2) BPH (benign prostatic hyperplasia) Status: Chronic (3) GERD (gastroesophageal reflux disease) Status: Chronic (4) HTN (hypertension) Status: Chronic (5) Hyperglycemia Status: Acute (6) Hypoglycemia Status: Acute Assessment/Plan: Pneumonia? HYPOGLYCEMIA causing MINIMAL responsiveness, intubated for airway protection . HYPOTENSION, post intubation, responded to fluid . Seizures? PSVT GERD, BPH, HTN - stable CTA head./neck: 1. No large vessel occlusion. 2. Minimal patchy chronic plaque at the origin of the right internal carotid artery without significant stenosis. 3. Minimal calcified atherosclerotic plaque at the cavernous segments of the right and left internal carotid arteries bilaterally without significant stenosis. Plan: failed weaning trial cxr today iv antibiotics zyvox+levaquin id consult duoneb qid tube feedings. EEG neg for seizures On vent, weaning today, spoke with pulmonary cardiology consult appreciated Neuro consult appreciated spoke with people from detention spoke with RN CTA noted no stroke or aneurysm Plan Plan of Care Problems Medical Problems: (1) Altered level of consciousness Status: Acute (2) BPH (benign prostatic hyperplasia) Status: Chronic (3) GERD (gastroesophageal reflux disease) Status: Chronic (4) HTN (hypertension) Status: Chronic (5) Hyperglycemia Status: Acute (6) Hypoglycemia Status: Acute Comment Review of Relevant I have reviewed the following items aden (where applicable) has been applied. Labs Laboratory Tests Test 04/09/19 11:55 04/09/19 17:23 04/10/19 00:10 04/10/19 05:00 Glucose (Fingerstick) 136 mg/dL (70-99) 122 mg/dL (70-99) 122 mg/dL (70-99) White Blood Count 12.5 x10^3/uL (4.0-11.0) Red Blood Count 3.85 x10^6/uL (4.30-5.70) Hemoglobin 11.9 g/dL (13.0-17.5) Hematocrit 34.7 % (39.0-53.0) Mean Corpuscular Volume 90 fL (79-100) Mean Corpuscular Hemoglobin 31 pg (25-35) Mean Corpuscular Hemoglobin Concent 34 g/dL (31-37) Red Cell Distribution Width 14.6 % (11.5-14.5) Platelet Count 209 x10^3/uL (140-400) Neutrophils (%) (Auto) 74 % (31-73) Lymphocytes (%) (Auto) 13 % (24-48) Monocytes (%) (Auto) 10 % (0-9) Eosinophils (%) (Auto) 2 % (0-3) Basophils (%) (Auto) 0 % (0-3) Neutrophils # (Auto) 9.3 x10^3/uL (1.8-7.7) Lymphocytes # (Auto) 1.6 x10^3/uL (1.0-4.8) Monocytes # (Auto) 1.3 x10^3/uL (0.0-1.1) Eosinophils # (Auto) 0.3 x10^3/uL (0.0-0.7) Basophils # (Auto) 0.0 x10^3/uL (0.0-0.2) Sodium Level 142 mmol/L (136-145) Potassium Level 3.6 mmol/L (3.5-5.1) Chloride Level 109 mmol/L (98-107) Carbon Dioxide Level 24 mmol/L (21-32) Anion Gap 9 (6-14) Blood Urea Nitrogen 16 mg/dL (8-26) Creatinine 0.8 mg/dL (0.7-1.3) Estimated GFR (Cockcroft-Gault) 95.0 Glucose Level 127 mg/dL (70-99) Calcium Level 7.7 mg/dL (8.5-10.1) Test 04/10/19 05:53 04/10/19 09:01 Glucose (Fingerstick) 117 mg/dL (70-99) O2 Saturation 97 % (92-99) Arterial Blood pH 7.42 (7.35-7.45) Arterial Blood pCO2 at Patient Temp 34 mmHg (35-46) Arterial Blood pO2 at Patient Temp 87 mmHg (65-108) Arterial Blood HCO3 21 mmol/L (21-28) Arterial Blood Base Excess -3 mmol/L (-3-3) FiO2 40 Vitals/I & O Vital Sign - Last 24 Hours 04/09/19 04/09/19 04/09/19 04/09/19 12:00 12:00 13:00 13:15 Temp 97.9 97.9 Pulse 76 78 Resp 15 15 B/P (MAP) 85/61 (69) 105/65 (78) Pulse Ox 97 98 98 O2 Delivery Mechanical Ventilator Ventilator Ventilator Ventilator 04/09/19 04/09/19 04/09/19 04/09/19 13:36 14:00 15:00 16:00 Pulse 79 82 82 96 Resp 15 19 29 B/P (MAP) 105/65 109/72 (84) 105/71 (82) 135/80 (98) Pulse Ox 98 97 97 O2 Delivery Ventilator Ventilator Ventilator 04/09/19 04/09/19 04/09/19 04/09/19 16:00 17:00 18:00 19:00 Temp 98.1 98.1 Pulse 96 94 90 Resp 28 16 B/P (MAP) 135/81 (99) 107/69 (82) 91/64 (73) Pulse Ox 98 97 98 O2 Delivery Mechanical Ventilator Ventilator Ventilator Ventilator 04/09/19 04/09/19 04/09/19 04/09/19 19:53 20:00 21:00 21:00 Temp 98.1 98.1 Pulse 80 88 Resp 16 16 B/P (MAP) 119/63 (81) 100/70 (80) Pulse Ox 99 97 98 O2 Delivery Ventilator Ventilator Ventilator Mechanical Ventilator 04/09/19 04/09/19 04/09/19 04/09/19 21:01 21:05 22:00 23:00 Pulse 78 94 84 Resp 17 15 B/P (MAP) 94/63 (73) 89/59 (69) Pulse Ox 98 98 97 O2 Delivery Ventilator Ventilator Ventilator 04/09/19 04/10/19 04/10/19 04/10/19 23:12 00:00 00:00 01:00 Temp 99.2 99.2 Pulse 83 89 Resp 17 15 B/P (MAP) 103/76 (85) 97/69 (78) Pulse Ox 98 98 98 O2 Delivery Ventilator Mechanical Ventilator Ventilator Ventilator 04/10/19 04/10/19 04/10/19 04/10/19 02:00 02:36 03:00 04:00 Pulse 83 84 Resp 16 17 B/P (MAP) 109/71 (84) 109/70 (83) Pulse Ox 98 98 98 O2 Delivery Ventilator Ventilator Ventilator Mechanical Ventilator 04/10/19 04/10/19 04/10/19 04/10/19 04:00 05:00 05:26 06:00 Temp 99.0 99.0 Pulse 83 83 87 Resp 15 16 15 B/P (MAP) 107/71 (83) 101/71 (81) 110/75 (87) Pulse Ox 98 98 98 98 O2 Delivery Ventilator Ventilator Ventilator Ventilator 04/10/19 04/10/19 04/10/19 04/10/19 06:03 07:00 08:00 08:00 Temp 98.1 98.1 Pulse 83 79 80 Resp 23 18 B/P (MAP) 95/62 (73) 97/61 (73) Pulse Ox 98 97 O2 Delivery Ventilator Ventilator Mechanical Ventilator 04/10/19 04/10/19 04/10/19 09:00 09:01 10:00 Pulse 75 82 Resp 20 29 B/P (MAP) 99/60 (73) 118/75 (89) Pulse Ox 97 97 97 O2 Delivery Ventilator Ventilator Ventilator Intake and Output 8/16/19 8/16/19 8/17/19 15:00 23:00 07:00 Intake Total 790 ml 308 ml 1470.6 ml Output Total 415 ml 915 ml 1165 ml Balance 375 ml -607 ml 305.6 ml ROSALVA GOODWIN MD Apr 10, 2019 11:09
--- NOTE | 2019-04-10 11:32 | PDOC ---
Infectious Disease Note Vital Sign Vital Signs Vital Signs Date Time Temp Pulse Resp B/P (MAP) Pulse Ox O2 Delivery O2 Flow Rate FiO2 04/10/19 11:00 87 20 102/72 (82) 97 Ventilator 04/10/19 07:00 98.1 98.1 Labs Lab Laboratory Tests Test 04/09/19 11:55 04/09/19 17:23 04/10/19 00:10 04/10/19 05:00 Glucose (Fingerstick) 136 mg/dL (70-99) 122 mg/dL (70-99) 122 mg/dL (70-99) White Blood Count 12.5 x10^3/uL (4.0-11.0) Red Blood Count 3.85 x10^6/uL (4.30-5.70) Hemoglobin 11.9 g/dL (13.0-17.5) Hematocrit 34.7 % (39.0-53.0) Mean Corpuscular Volume 90 fL (79-100) Mean Corpuscular Hemoglobin 31 pg (25-35) Mean Corpuscular Hemoglobin Concent 34 g/dL (31-37) Red Cell Distribution Width 14.6 % (11.5-14.5) Platelet Count 209 x10^3/uL (140-400) Neutrophils (%) (Auto) 74 % (31-73) Lymphocytes (%) (Auto) 13 % (24-48) Monocytes (%) (Auto) 10 % (0-9) Eosinophils (%) (Auto) 2 % (0-3) Basophils (%) (Auto) 0 % (0-3) Neutrophils # (Auto) 9.3 x10^3/uL (1.8-7.7) Lymphocytes # (Auto) 1.6 x10^3/uL (1.0-4.8) Monocytes # (Auto) 1.3 x10^3/uL (0.0-1.1) Eosinophils # (Auto) 0.3 x10^3/uL (0.0-0.7) Basophils # (Auto) 0.0 x10^3/uL (0.0-0.2) Sodium Level 142 mmol/L (136-145) Potassium Level 3.6 mmol/L (3.5-5.1) Chloride Level 109 mmol/L (98-107) Carbon Dioxide Level 24 mmol/L (21-32) Anion Gap 9 (6-14) Blood Urea Nitrogen 16 mg/dL (8-26) Creatinine 0.8 mg/dL (0.7-1.3) Estimated GFR (Cockcroft-Gault) 95.0 Glucose Level 127 mg/dL (70-99) Calcium Level 7.7 mg/dL (8.5-10.1) Test 04/10/19 05:53 04/10/19 09:01 Glucose (Fingerstick) 117 mg/dL (70-99) O2 Saturation 97 % (92-99) Arterial Blood pH 7.42 (7.35-7.45) Arterial Blood pCO2 at Patient Temp 34 mmHg (35-46) Arterial Blood pO2 at Patient Temp 87 mmHg (65-108) Arterial Blood HCO3 21 mmol/L (21-28) Arterial Blood Base Excess -3 mmol/L (-3-3) FiO2 40 Objective Assessment Suspected aspiration Leukocytosis Low grade fever N/V Respiratory failure Hypoglycemia Plan Plan of Care medel culture zyvox and levaquin ? allergy to all beta lactams, will inquire more supportive care KRYSTEN RIVAS MD Apr 10, 2019 11:32
[2019-04-10] MEDS: IPRATRPIUM/ALBUTEROL 0.5/2.5MG 3 ML NEBU. NEB SCH ×3 (12:00→19:59)
--- NOTE | 2019-04-10 12:26 | CONS ---
DATE OF CONSULTATION: 04/10/2019 REQUESTING PHYSICIAN: Antonio Moran MD REASON FOR CONSULTATION: Suspected aspiration. HISTORY OF PRESENT ILLNESS: This is a 74-year-old gentleman who is a senior living resident who was brought in unresponsive with blood sugar into 30s. The patient was intubated and since then he has been intubated. The patient initially was not treated with antibiotics as there was no other indication, but now yesterday, the patient had vomited. White count went up and had low-grade fever; hence, medel culture has been ordered and Zyvox and Levaquin had been ordered. The patient is not able to provide any information in a normal situation before the sickness. The patient just answers yes and no, but able to take care of himself apparently. PAST MEDICAL HISTORY: Positive for autism. The patient has gastroesophageal reflux disease, benign prostatic hypertrophy, osteoarthritis, mental retardation. He has had TUR done and Ernesto fundoplication done. SOCIAL HISTORY: Unable to obtain. The patient lives in a nursing facility, I believe. CURRENT MEDICATIONS: The patient is started on Levaquin and Zyvox. Rest of the medications reviewed. ALLERGIES: THE PATIENT IS LISTED ALLERGIC TO CEPHALOSPORIN, PENICILLIN AND MEROPENEM. IT IS UNCLEAR WHAT HAPPENED WITH ANY OF THOSE. REVIEW OF SYSTEMS: Unable to obtain other than what through the nursing, there is no more nausea, vomiting or diarrhea noted. PHYSICAL EXAMINATION: GENERAL: Sedated, orally intubated gentleman, not in any distress. VITAL SIGNS: Stable with a T-max 99.2. HEENT: Both pupils are round and reacting. Orally intubated, not much orally can be seen. NECK: Supple, no JVP, no lymphadenopathy. LUNGS: Clear. HEART: S1, S2 regular. ABDOMEN: Soft, nontender, no organomegaly. EXTREMITIES: No edema, cyanosis. SKIN: Unremarkable. NEUROLOGIC: Unable to home service consultant, says he is sedated on a ventilator. LABORATORY DATA: White count is 12.5, hemoglobin 11.9, platelets are normal. BUN and creatinine is normal. Urinalysis unremarkable. Drug screen was negative. Cultures are pending. IMAGING STUDIES: Chest x-ray is old before the vomiting. The new one is not done yet. CT of the head and neck was unremarkable for any acute changes. IMPRESSION: 1. Nausea, vomiting with suspected aspiration. 2. Low-grade fever. 3. Leukocytosis. 4. Respiratory failure. 5. Hypoglycemia. 6. Autism. 7. Hypertension. 8. Benign prostatic hypertrophy. RECOMMENDATIONS: Agree with medel culture and use Zyvox and Levaquin for the time being. We will further inquire about allergies. Supportive care. We will check the cultures and adjust. We will continue to follow. Thank you very much, Dr. Moran, for giving me the opportunity to participate in this patient's care. KRYSTEN RIVAS MD DR: ARNAUD/nicolasa JOB#: [id number] / [id number]
--- NOTE | 2019-04-10 12:44 | RAD ---
EXAM: AP View of the chest DATE: 04/10/2019 10:32 AM INDICATION: Respiratory failure COMPARISON: 04/06/2019 12/23/2018 FINDINGS/ IMPRESSION: The heart is not enlarged. Aorta is mildly tortuous. Mediastinal and hilar contours are stable. Bibasilar airspace opacities are essentially unchanged. Small right pleural effusion. No pneumothorax. Electronically signed by: Jason Jackson MD (04/10/2019 12:40 PM) [facility]
--- NOTE | 2019-04-10 14:31 | PDOC ---
PROGRESS NOTES Assessment Assessment Metabolic encephalopathy. Respiratory failure. Seizure or seizure like episode, provoked. Hypoglycemia, glucose level 20. Hyperglycemia, glucose level 350. DM. HTN. Intellectual disability. RECOMMENDATIONS/PLAN: Life support in ICU at the present time. Treat medical diseases. Ativan 1 mg IV PRN q4h if has further seizure. Keppra 500 mg IV q12h if has further seizures. EEG on 04/08/19: Encephalopathy. HISTORY OF PRESENT ILLNESS This is a 74-y-old male patient who is a resident of [facility] with above listed diseases and intellectual disability was found by the staff in the bed unresponsive. EMS arrived and noted his glucose level was at 20, so he was administrated D50 but his mentation remains poor. He was then intubated to secure airway due to respiratory distress/failure and he was brought to the ER of [facility]. Upon admission he was noted with SVT in ICU lasting about 3 minutes. Adenosine x1 was given. Neurology was requested for consultation for a seizure or seizure like episode. He was reportedly to have vague history of seizure in the past, but not AEDs. His HCT and CTA are unremarkable. On vent stable on 04/10/19. PAST MEDICAL HISTORY Cardiovascular: HTN CENTRAL NERVOUS SYSTEM: Mental retardation. GI: GERD Musculoskeletal: Osteoarthritis Renal/: UTI, Benign prostatic enlargement. PAST SURGICAL HISTORY TURP; ligia fundoplication. FAMILY HISTORY No information is available at this time. SOCIAL HISTORY Smoke: No ALCOHOL: none Drugs: None Lives: Alone (assited living) ALLERGIES Coded Allergies: Cephalosporins (Verified Allergy, Intermediate, 07/13/15) Penicillins (Verified Allergy, Intermediate, 07/13/15) carbamazepine (Verified Allergy, Intermediate, 07/13/15) meropenem (Verified Allergy, Intermediate, 07/12/15) BETA LACTAMS penicillamine (Verified Allergy, Intermediate, 07/13/15) I S O L A T I O N *CONTACT* (Verified Allergy, Unknown, 07/11/15), mrsa + MEDICATIONS: Refer to MAR REVIEW OF SYSTEMS: Constitutional: No malnutrition, weight loss, cachexia. Head: No traumatic brain injury. Skin: No edema, or rash. Ear: No infection. Eyes: No vision loss or color blindness. Nose: No bleeding or purulent discharges. Hearing: No hearing decrease. Neck: No injury. Cardiac: HTN. Pulmonary: No COPD. GI: No GI ulcer, GI bleeding. Urinary/genital: UTI. Endocrinologic: Diabetes Mellitus? Skeletomuscular: No muscular atrophy, deformity. Neurological: see HP. Psychiatric: Denies drug use/abuse. Otherwise, not [id number] review of systems. PHYSICAL EXAMINATION: General appearance is in subacute distress. HEENT: Normocephalic and nontraumatic. Eyes, nose, ears, and throat are unremarkable. Neck is supple. No lymphadenopathy. No crepitus. Cardiovascular: S1, S2, PAC appreciated. Pulmonary: On vent. Abdomen: Bowel sounds are positive. Extremities: No rash, lesions, or edema. NEUROLOGICAL EXAMINATION: Unresponsive. On vent. Not oriented to time, place and person. PERRL. EOMI not elicited. CN: no focal findings. Muscle tone: Decreased. Muscle strength: No movements to stimuli. DTR: 0-1 Plantar reflex: No response bilaterally Gait: Unable to walk at the present time. Sensory exam: no response. Not able to access cerebellar signs. F-T-N test not performed due to unresponsiveness. Objective Objective Vital Signs Date Time Temp Pulse Resp B/P (MAP) Pulse Ox O2 Delivery O2 Flow Rate FiO2 04/10/19 14:00 76 17 92/56 (68) 98 Ventilator 04/10/19 12:00 98.4 98.4 Intake and Output 04/10/19 07:00 Intake Total 2568.6 ml Output Total 2495 ml Balance 73.6 ml Intake Oral 50 ml IV Total 793.6 ml Tube Feeding 1525 ml Other 200 ml Output Urine Total 2195 ml Gastric Drainage Total 100 ml Emesis 200 ml Vitals Signs Vitals VS - Last 72 Hours, by Label Date Time Temp Pulse Resp B/P (MAP) Pulse Ox O2 Delivery O2 Flow Rate FiO2 04/10/19 14:00 76 17 92/56 (68) 98 Ventilator 04/10/19 13:30 80 15 99/66 (77) 98 Ventilator 04/10/19 12:00 Mechanical Ventilator 04/10/19 12:00 98.4 83 15 103/66 (78) 97 Ventilator 98.4 04/10/19 11:57 97 Ventilator 04/10/19 11:00 87 20 102/72 (82) 97 Ventilator 04/10/19 10:00 82 29 118/75 (89) 97 Ventilator 04/10/19 09:01 97 Ventilator 04/10/19 09:00 75 20 99/60 (73) 97 Ventilator 04/10/19 08:00 Mechanical Ventilator 04/10/19 08:00 80 18 97/61 (73) 97 Ventilator 04/10/19 07:00 98.1 79 23 95/62 (73) 98 Ventilator 98.1 04/10/19 06:03 83 04/10/19 06:00 87 15 110/75 (87) 98 Ventilator 04/10/19 05:26 98 Ventilator 04/10/19 05:00 83 16 101/71 (81) 98 Ventilator 04/10/19 04:00 99.0 83 15 107/71 (83) 98 Ventilator 99.0 04/10/19 04:00 Mechanical Ventilator 04/10/19 03:00 84 17 109/70 (83) 98 Ventilator 04/10/19 02:36 98 Ventilator 04/10/19 02:00 83 16 109/71 (84) 98 Ventilator 04/10/19 01:00 89 15 97/69 (78) 98 Ventilator 04/10/19 00:00 99.2 83 17 103/76 (85) 98 Ventilator 99.2 04/10/19 00:00 Mechanical Ventilator 04/09/19 23:12 98 Ventilator 04/09/19 23:00 84 15 89/59 (69) 97 Ventilator 04/09/19 22:00 94 17 94/63 (73) 98 Ventilator 04/09/19 21:05 78 04/09/19 21:01 98 Ventilator 04/09/19 21:00 Mechanical Ventilator 04/09/19 21:00 88 16 100/70 (80) 98 Ventilator 04/09/19 20:00 98.1 80 16 119/63 (81) 97 Ventilator 98.1 04/09/19 19:53 99 Ventilator 04/09/19 19:00 90 16 91/64 (73) 98 Ventilator 04/09/19 18:00 98.1 94 107/69 (82) 97 Ventilator 98.1 04/09/19 17:00 96 28 135/81 (99) 98 Ventilator 04/09/19 16:00 Mechanical Ventilator 04/09/19 16:00 96 29 135/80 (98) 97 Ventilator 04/09/19 15:00 82 19 105/71 (82) 97 Ventilator 04/09/19 14:00 82 15 109/72 (84) 98 Ventilator 04/09/19 13:36 79 105/65 04/09/19 13:15 98 Ventilator 04/09/19 13:00 78 15 105/65 (78) 98 Ventilator 04/09/19 12:00 97.9 76 15 85/61 (69) 97 Ventilator 97.9 04/09/19 12:00 Mechanical Ventilator 04/09/19 11:00 74 15 99/65 (76) 96 Ventilator 04/09/19 10:00 76 19 111/66 (81) 97 Ventilator 04/09/19 09:44 97 Ventilator 04/09/19 09:00 74 16 84/59 (67) 97 Ventilator 04/09/19 08:25 98 Ventilator 04/09/19 08:00 Mechanical Ventilator 04/09/19 08:00 73 19 116/66 (83) 99 Ventilator 04/09/19 07:00 99.2 74 17 89/53 (65) 97 Ventilator 99.2 Laboratory Laboratory Laboratory Tests Test 04/09/19 17:23 04/10/19 00:10 04/10/19 05:00 04/10/19 05:53 Glucose (Fingerstick) 122 mg/dL (70-99) 122 mg/dL (70-99) 117 mg/dL (70-99) White Blood Count 12.5 x10^3/uL (4.0-11.0) Red Blood Count 3.85 x10^6/uL (4.30-5.70) Hemoglobin 11.9 g/dL (13.0-17.5) Hematocrit 34.7 % (39.0-53.0) Mean Corpuscular Volume 90 fL (79-100) Mean Corpuscular Hemoglobin 31 pg (25-35) Mean Corpuscular Hemoglobin Concent 34 g/dL (31-37) Red Cell Distribution Width 14.6 % (11.5-14.5) Platelet Count 209 x10^3/uL (140-400) Neutrophils (%) (Auto) 74 % (31-73) Lymphocytes (%) (Auto) 13 % (24-48) Monocytes (%) (Auto) 10 % (0-9) Eosinophils (%) (Auto) 2 % (0-3) Basophils (%) (Auto) 0 % (0-3) Neutrophils # (Auto) 9.3 x10^3/uL (1.8-7.7) Lymphocytes # (Auto) 1.6 x10^3/uL (1.0-4.8) Monocytes # (Auto) 1.3 x10^3/uL (0.0-1.1) Eosinophils # (Auto) 0.3 x10^3/uL (0.0-0.7) Basophils # (Auto) 0.0 x10^3/uL (0.0-0.2) Sodium Level 142 mmol/L (136-145) Potassium Level 3.6 mmol/L (3.5-5.1) Chloride Level 109 mmol/L (98-107) Carbon Dioxide Level 24 mmol/L (21-32) Anion Gap 9 (6-14) Blood Urea Nitrogen 16 mg/dL (8-26) Creatinine 0.8 mg/dL (0.7-1.3) Estimated GFR (Cockcroft-Gault) 95.0 Glucose Level 127 mg/dL (70-99) Calcium Level 7.7 mg/dL (8.5-10.1) Test 04/10/19 09:01 04/10/19 11:58 O2 Saturation 97 % (92-99) Arterial Blood pH 7.42 (7.35-7.45) Arterial Blood pCO2 at Patient Temp 34 mmHg (35-46) Arterial Blood pO2 at Patient Temp 87 mmHg (65-108) Arterial Blood HCO3 21 mmol/L (21-28) Arterial Blood Base Excess -3 mmol/L (-3-3) FiO2 40 Glucose (Fingerstick) 123 mg/dL (70-99) Medication Medications Current Medications Albuterol/ Ipratropium (Duoneb) 3 ml 1X ONCE NEB ; Start 04/10/19 at 11:00; Stop 04/10/19 at 11:12; Status DC Albuterol/ Ipratropium (Duoneb) 3 ml RTQID NEB ; Start 04/10/19 at 12:00 Levofloxacin/ Dextrose 100 ml @ 100 mls/hr Q24H IV Last administered on 04/10/19at 11:43; Start 04/10/19 at 11:00 Linezolid/Dextrose 300 ml @ 300 mls/hr Q12HR IV Last administered on 8/17/19at 11:43; Start 04/10/19 at 11:00 Comment Review of Relevant I have reviewed the following items aden (where applicable) has been applied. VANESSA EASTMAN MD Apr 10, 2019 14:31
[2019-04-10] MEDS: LORazepam 0.5 MG TABLET PO SCH (21:16)
[2019-04-10] MEDS: ENOXAPARIN 40 MG/0.4 ML SYRINGE. SQ SCH (21:16)
[2019-04-11] VITALS (23 sets, daily range): BP systolic 82–118; BP diastolic 59–73
[2019-04-11] MEDS: PROPOFOL 100 ML IV PRN ×3 (01:00→15:58)
[2019-04-11] MEDS: IV NORMAL SALINE 1000ML BAG 1,000 ML IV SCH ×3 (01:23→18:38)
--- NOTE | 2019-04-11 02:11 | NUR ---
Pt resting quietly when coughing started. Pt has episode of PSVT at rate of 160+ for 4-5 minutes, then spontaneously converted to SR. No other changes noted.
[2019-04-11 04:42] LABS: BASO % 0 % (0-3); EOS # 0.4 x10^3/uL (0.0-0.7); EOS % 4 % (0-3); HEMATOCRIT 32.5 % (39.0-53.0); HEMOGLOBIN 11.1 g/dL (13.0-17.5); LYMPH # 1.1 x10^3/uL (1.0-4.8); LYMPH % 11 % (24-48); MEAN CORPUSCULAR HEMOGLOBIN 31 pg (25-35); MEAN CORPUSCULAR HGB CONC 34 g/dL (31-37); MEAN CORPUSCULAR VOLUME 91 fL (79-100); MONO % 11 % (0-9); NEUT # 7.4 x10^3/uL (1.8-7.7); NEUT % 74 % (31-73); PLATELET COUNT 207 x10^3/uL (140-400); RED BLOOD COUNT 3.58 x10^6/uL (4.30-5.70); RED CELL DISTRIBUTION WIDTH 14.8 % (11.5-14.5); WHITE BLOOD COUNT 9.9 x10^3/uL (4.0-11.0)
[2019-04-11 05:10] LABS: CALCIUM 7.8 mg/dL (8.5-10.1); CREATININE 0.7 mg/dL (0.7-1.3); GFR 110.9; POTASSIUM 3.7 mmol/L (3.5-5.1)
[2019-04-11] MEDS: INSULIN LISPRO 300 UNITS/3 ML VIAL. SQ SCH ×4 (06:00→18:00)
[2019-04-11] MEDS: dilTIAZem HCL 30 MG TABLET PO SCH ×3 (06:13→20:48)
--- NOTE | 2019-04-11 06:19 | PDOC ---
PULMONARY PROGRESS NOTES Subjective on vent, sedated on propofol, mod ett secretion, autistic, didnt tolerate sbt, had svt and rr in 40 Vitals Vital Signs Date Time Temp Pulse Resp B/P (MAP) Pulse Ox O2 Delivery O2 Flow Rate FiO2 04/11/19 06:14 78 04/11/19 05:25 98 Ventilator 04/11/19 05:00 17 91/68 (76) 04/11/19 04:00 98.9 98.9 Comments ros as mentioned as above discussed w rn other sys otherwise neg sedated on vent HEENT: Other (nc at perrl nose clear orally intubated neck no lad no thyromegaly) Lungs: Crackles Cardiovascular: S1, S2 Abdomen: Soft, Non-tender, Other (no mass) Extremities: Other (EDEMA) Skin: Warm Labs Laboratory Tests Test 04/09/19 08:00 04/09/19 11:55 04/09/19 17:23 04/10/19 00:10 O2 Saturation 97 % (92-99) Arterial Blood pH 7.44 (7.35-7.45) Arterial Blood pCO2 at Patient Temp 32 mmHg (35-46) Arterial Blood pO2 at Patient Temp 92 mmHg (65-108) Arterial Blood HCO3 21 mmol/L (21-28) Arterial Blood Base Excess -2 mmol/L (-3-3) FiO2 40% Glucose (Fingerstick) 136 mg/dL (70-99) 122 mg/dL (70-99) 122 mg/dL (70-99) Test 04/10/19 05:00 04/10/19 05:53 04/10/19 09:01 04/10/19 11:58 White Blood Count 12.5 x10^3/uL (4.0-11.0) Red Blood Count 3.85 x10^6/uL (4.30-5.70) Hemoglobin 11.9 g/dL (13.0-17.5) Hematocrit 34.7 % (39.0-53.0) Mean Corpuscular Volume 90 fL (79-100) Mean Corpuscular Hemoglobin 31 pg (25-35) Mean Corpuscular Hemoglobin Concent 34 g/dL (31-37) Red Cell Distribution Width 14.6 % (11.5-14.5) Platelet Count 209 x10^3/uL (140-400) Neutrophils (%) (Auto) 74 % (31-73) Lymphocytes (%) (Auto) 13 % (24-48) Monocytes (%) (Auto) 10 % (0-9) Eosinophils (%) (Auto) 2 % (0-3) Basophils (%) (Auto) 0 % (0-3) Neutrophils # (Auto) 9.3 x10^3/uL (1.8-7.7) Lymphocytes # (Auto) 1.6 x10^3/uL (1.0-4.8) Monocytes # (Auto) 1.3 x10^3/uL (0.0-1.1) Eosinophils # (Auto) 0.3 x10^3/uL (0.0-0.7) Basophils # (Auto) 0.0 x10^3/uL (0.0-0.2) Sodium Level 142 mmol/L (136-145) Potassium Level 3.6 mmol/L (3.5-5.1) Chloride Level 109 mmol/L (98-107) Carbon Dioxide Level 24 mmol/L (21-32) Anion Gap 9 (6-14) Blood Urea Nitrogen 16 mg/dL (8-26) Creatinine 0.8 mg/dL (0.7-1.3) Estimated GFR (Cockcroft-Gault) 95.0 Glucose Level 127 mg/dL (70-99) Calcium Level 7.7 mg/dL (8.5-10.1) Glucose (Fingerstick) 117 mg/dL (70-99) 123 mg/dL (70-99) O2 Saturation 97 % (92-99) Arterial Blood pH 7.42 (7.35-7.45) Arterial Blood pCO2 at Patient Temp 34 mmHg (35-46) Arterial Blood pO2 at Patient Temp 87 mmHg (65-108) Arterial Blood HCO3 21 mmol/L (21-28) Arterial Blood Base Excess -3 mmol/L (-3-3) FiO2 40 Test 04/10/19 18:09 04/11/19 00:00 04/11/19 04:00 04/11/19 05:59 Glucose (Fingerstick) 140 mg/dL (70-99) 126 mg/dL (70-99) 120 mg/dL (70-99) White Blood Count 9.9 x10^3/uL (4.0-11.0) Red Blood Count 3.58 x10^6/uL (4.30-5.70) Hemoglobin 11.1 g/dL (13.0-17.5) Hematocrit 32.5 % (39.0-53.0) Mean Corpuscular Volume 91 fL (79-100) Mean Corpuscular Hemoglobin 31 pg (25-35) Mean Corpuscular Hemoglobin Concent 34 g/dL (31-37) Red Cell Distribution Width 14.8 % (11.5-14.5) Platelet Count 207 x10^3/uL (140-400) Neutrophils (%) (Auto) 74 % (31-73) Lymphocytes (%) (Auto) 11 % (24-48) Monocytes (%) (Auto) 11 % (0-9) Eosinophils (%) (Auto) 4 % (0-3) Basophils (%) (Auto) 0 % (0-3) Neutrophils # (Auto) 7.4 x10^3/uL (1.8-7.7) Lymphocytes # (Auto) 1.1 x10^3/uL (1.0-4.8) Monocytes # (Auto) 1.0 x10^3/uL (0.0-1.1) Eosinophils # (Auto) 0.4 x10^3/uL (0.0-0.7) Basophils # (Auto) 0.0 x10^3/uL (0.0-0.2) Sodium Level 143 mmol/L (136-145) Potassium Level 3.7 mmol/L (3.5-5.1) Chloride Level 111 mmol/L (98-107) Carbon Dioxide Level 24 mmol/L (21-32) Anion Gap 8 (6-14) Blood Urea Nitrogen 18 mg/dL (8-26) Creatinine 0.7 mg/dL (0.7-1.3) Estimated GFR (Cockcroft-Gault) 110.9 Glucose Level 140 mg/dL (70-99) Calcium Level 7.8 mg/dL (8.5-10.1) Laboratory Tests Test 04/10/19 09:01 04/10/19 11:58 04/10/19 18:09 04/11/19 00:00 O2 Saturation 97 % (92-99) Arterial Blood pH 7.42 (7.35-7.45) Arterial Blood pCO2 at Patient Temp 34 mmHg (35-46) Arterial Blood pO2 at Patient Temp 87 mmHg (65-108) Arterial Blood HCO3 21 mmol/L (21-28) Arterial Blood Base Excess -3 mmol/L (-3-3) FiO2 40 Glucose (Fingerstick) 123 mg/dL (70-99) 140 mg/dL (70-99) 126 mg/dL (70-99) Test 04/11/19 04:00 04/11/19 05:59 White Blood Count 9.9 x10^3/uL (4.0-11.0) Red Blood Count 3.58 x10^6/uL (4.30-5.70) Hemoglobin 11.1 g/dL (13.0-17.5) Hematocrit 32.5 % (39.0-53.0) Mean Corpuscular Volume 91 fL (79-100) Mean Corpuscular Hemoglobin 31 pg (25-35) Mean Corpuscular Hemoglobin Concent 34 g/dL (31-37) Red Cell Distribution Width 14.8 % (11.5-14.5) Platelet Count 207 x10^3/uL (140-400) Neutrophils (%) (Auto) 74 % (31-73) Lymphocytes (%) (Auto) 11 % (24-48) Monocytes (%) (Auto) 11 % (0-9) Eosinophils (%) (Auto) 4 % (0-3) Basophils (%) (Auto) 0 % (0-3) Neutrophils # (Auto) 7.4 x10^3/uL (1.8-7.7) Lymphocytes # (Auto) 1.1 x10^3/uL (1.0-4.8) Monocytes # (Auto) 1.0 x10^3/uL (0.0-1.1) Eosinophils # (Auto) 0.4 x10^3/uL (0.0-0.7) Basophils # (Auto) 0.0 x10^3/uL (0.0-0.2) Sodium Level 143 mmol/L (136-145) Potassium Level 3.7 mmol/L (3.5-5.1) Chloride Level 111 mmol/L (98-107) Carbon Dioxide Level 24 mmol/L (21-32) Anion Gap 8 (6-14) Blood Urea Nitrogen 18 mg/dL (8-26) Creatinine 0.7 mg/dL (0.7-1.3) Estimated GFR (Cockcroft-Gault) 110.9 Glucose Level 140 mg/dL (70-99) Calcium Level 7.8 mg/dL (8.5-10.1) Glucose (Fingerstick) 120 mg/dL (70-99) Medications Active Scripts Medications Dose Route/Sig Max Daily Dose Days Date Category Pyridium (Phenazopyridine Hcl) 200 Mg Tablet 200 Mg PO TID 12/17/16 Rx Cipro (Ciprofloxacin Hcl) 250 Mg Tablet 1 Tab PO BID 12/17/16 Rx Ciprofloxacin Hcl 500 Mg Tablet 500 Mg PO BID 07/13/15 Rx Ativan (Lorazepam) 0.5 Mg Tablet 0.5 Mg PO HS 07/11/15 Reported Tamsulosin Hcl 0.4 Mg Cap.er.24h 0.4 Mg PO DAILY 05/08/15 Reported Multi-Day Vitamins (Multivitamin) 1 Each Tablet 1 Tab PO DAILY 04/17/15 Reported Tylenol (Acetaminophen) 325 Mg Tablet 2 Tab PO BID PRN 02/07/15 Reported Losartan Potassium 50 Mg Tablet 1 Tab PO DAILY 02/07/15 Reported Zantac (Ranitidine Hcl) 150 Mg Tablet 1 Tab PO DAILY 02/07/15 Reported Aspirin 81 Mg Tab.chew 1 Tab PO DAILY 02/07/15 Reported Comments reviewed cxr Bibasilar airspace opacities are essentially unchanged. Small right pleural effusion. No pneumothorax. ett ok Impression . IMPRESSION: 1. Nqa-nk-vlfskyev arrest. 2. Respiratory failure secondary to above. 3. Hypoglycemia. resolved 4. History of autism. 5. Hypertension. 6. Benign prostatic hypertrophy. 7. METABOLIC ENCE POA 8. SEIZURES 9. abnl cxr, aspiration pneumonitis vs pneumonia Plan . cont vent support, setting reviewed, decrease sedation, sbt today reviewed cxr, low grade fever, aspiration pneumonitis vs pneumonia, abx per id CONTINUE SUPPORT FOR NOW FOLLOW CARD INPUT DVT AND GI PROPH elevate hob discussed w rn rt SILVIO JOAQUIN MD Apr 11, 2019 06:19
[2019-04-11] MEDS: PANTOPRAZOLE IV PUSH 40 MG VIAL. IVP SCH (07:59)
[2019-04-11] MEDS: IPRATRPIUM/ALBUTEROL 0.5/2.5MG 3 ML NEBU. NEB SCH ×4 (08:00→20:00)
[2019-04-11] MEDS: TAMSULOSIN 0.4 MG CAP.ER.24H. PO SCH (08:01)
[2019-04-11] MEDS: MULTIVITAMIN with MINERAL TABLET. PO SCH (08:01)
[2019-04-11] MEDS: ASPIRIN CHEWABLE 81 MG TABLET. PO SCH (08:01)
[2019-04-11] MEDS ORDERED: fentaNYL STANDARD PCA 600 MCG/30 ML PCA.SYRING IV ONE (08:03)
--- NOTE | 2019-04-11 08:13 | PDOC ---
Infectious Disease Note Subjective Subjective Remains intubated and sedated. FiO2 40%, SpO2 98% Tube feedings via OGT No fevers last 24 hours Soft stool ROS ROS unobtainable Vital Sign Vital Signs Vital Signs Date Time Temp Pulse Resp B/P (MAP) Pulse Ox O2 Delivery O2 Flow Rate FiO2 04/11/19 07:00 75 18 93/65 (74) 98 Ventilator 04/11/19 04:00 98.9 98.9 Physical Exam PHYSICAL EXAM GENERAL: Sedated, orally intubated gentleman, not in any distress. HEENT: Pupils equal. ETT, OGT NECK: Supple LUNGS: Clear. HEART: S1, S2 regular. ABDOMEN: Soft, BS present : Ortega EXTREMITIES: No edema, cyanosis. SKIN: warm to touch. No signs of rash NEUROLOGIC: Sedated, moves legs some PIVs Labs Lab Laboratory Tests Test 04/10/19 09:01 04/10/19 11:58 04/10/19 18:09 04/11/19 00:00 O2 Saturation 97 % (92-99) Arterial Blood pH 7.42 (7.35-7.45) Arterial Blood pCO2 at Patient Temp 34 mmHg (35-46) Arterial Blood pO2 at Patient Temp 87 mmHg (65-108) Arterial Blood HCO3 21 mmol/L (21-28) Arterial Blood Base Excess -3 mmol/L (-3-3) FiO2 40 Glucose (Fingerstick) 123 mg/dL (70-99) 140 mg/dL (70-99) 126 mg/dL (70-99) Test 04/11/19 04:00 04/11/19 05:59 White Blood Count 9.9 x10^3/uL (4.0-11.0) Red Blood Count 3.58 x10^6/uL (4.30-5.70) Hemoglobin 11.1 g/dL (13.0-17.5) Hematocrit 32.5 % (39.0-53.0) Mean Corpuscular Volume 91 fL (79-100) Mean Corpuscular Hemoglobin 31 pg (25-35) Mean Corpuscular Hemoglobin Concent 34 g/dL (31-37) Red Cell Distribution Width 14.8 % (11.5-14.5) Platelet Count 207 x10^3/uL (140-400) Neutrophils (%) (Auto) 74 % (31-73) Lymphocytes (%) (Auto) 11 % (24-48) Monocytes (%) (Auto) 11 % (0-9) Eosinophils (%) (Auto) 4 % (0-3) Basophils (%) (Auto) 0 % (0-3) Neutrophils # (Auto) 7.4 x10^3/uL (1.8-7.7) Lymphocytes # (Auto) 1.1 x10^3/uL (1.0-4.8) Monocytes # (Auto) 1.0 x10^3/uL (0.0-1.1) Eosinophils # (Auto) 0.4 x10^3/uL (0.0-0.7) Basophils # (Auto) 0.0 x10^3/uL (0.0-0.2) Sodium Level 143 mmol/L (136-145) Potassium Level 3.7 mmol/L (3.5-5.1) Chloride Level 111 mmol/L (98-107) Carbon Dioxide Level 24 mmol/L (21-32) Anion Gap 8 (6-14) Blood Urea Nitrogen 18 mg/dL (8-26) Creatinine 0.7 mg/dL (0.7-1.3) Estimated GFR (Cockcroft-Gault) 110.9 Glucose Level 140 mg/dL (70-99) Calcium Level 7.8 mg/dL (8.5-10.1) Glucose (Fingerstick) 120 mg/dL (70-99) Micro BC pending, 04/10 Objective Assessment Nausea, vomiting with suspected aspiration. Low-grade fever. Leukocytosis - better Respiratory failure. Hypoglycemia. Autism. Hypertension. Benign prostatic hypertrophy. Multiple ANTIBIOTIC ALLERGIES: PCN, meropenem, cephalosporins. ? reaction Plan Plan of Care Continue Zyvox and Levaquin ? allergy to all beta lactams, will inquire more f/u cultures Supportive care D/w nursing Critically ill Attending Co-Sign The patient was seen and interviewed as well as examined at the bedside. The chart was reviewed. The case was discussed. Agree with the plan of care. CHERRI DICKERSON APRN Apr 11, 2019 08:13 KRYSTEN RIVAS MD Apr 11, 2019 10:45
[2019-04-11 08:59] LABS: BASE EXCESS ABG -2 mmol/L (-3-3); HCO3 ABG 21 mmol/L (21-28); PCO2 ABG 31 mmHg (35-46); PO2 ABG 78 mmHg (65-108); SAT O2 ABG 95 % (92-99)
[2019-04-11 09:01] LABS: FIO2 ABG 40
[2019-04-11] MEDS ORDERED: IV NORMAL SALINE 500ML BAG 500 ML IV ONE ×2 (10:30→11:00)
--- NOTE | 2019-04-11 10:59 | PDOC ---
PROGRESS NOTES Subjective Subjective on vent ,sedated Objective Objective Vital Signs Date Time Temp Pulse Resp B/P (MAP) Pulse Ox O2 Delivery O2 Flow Rate FiO2 04/11/19 10:02 96 Ventilator 04/11/19 10:00 82 16 82/60 (67) 04/11/19 08:00 99.0 99.0 Intake and Output 04/11/19 07:00 Intake Total 3827 ml Output Total 2875 ml Balance 952 ml IV Total 1715 ml Tube Feeding 1712 ml Blood Product IV Normal Saline Flush 200 ml Other 200 ml Output Urine Total 2875 ml # Bowel Movements 1 Physical Exam Physical Exam orally intubated On Vent and propofol sedation Abdomen: Soft Heart: Regular rate (SR), Normal S1, Normal S2, Other (2/6 systolic murmur to LLS border) Extremities: No cyanosis, No edema General: Other (sedated, intubated) HEENT: Atraumatic, Mucous membr. moist/pink Lungs: Other (intubated with vent, coarse lung sounds) MUSCULOSKELETAL: Osteoarthritic changes both hands Neuro: Other (sedated) Skin: No breakdown, No significant lesion COMMENT otto Diagnosis Problem List Problems Medical Problems: (1) Altered level of consciousness Status: Acute (2) BPH (benign prostatic hyperplasia) Status: Chronic (3) GERD (gastroesophageal reflux disease) Status: Chronic (4) HTN (hypertension) Status: Chronic (5) Hyperglycemia Status: Acute (6) Hypoglycemia Status: Acute Assessment Assessment Problems Medical Problems: (1) Altered level of consciousness Status: Acute (2) BPH (benign prostatic hyperplasia) Status: Chronic (3) GERD (gastroesophageal reflux disease) Status: Chronic (4) HTN (hypertension) Status: Chronic (5) Hyperglycemia Status: Acute (6) Hypoglycemia Status: Acute Assessment/Plan: Hypotension Pneumonia?Aspiration from seizures HYPOGLYCEMIA causing MINIMAL responsiveness, intubated for airway protection . HYPOTENSION, post intubation, responded to fluid . Seizures? PSVT GERD BPH HTN Plan:Fluid bolus failed weaning trial cxr lung infitrates iv antibiotics zyvox+levaquin id consult duoneb qid tube feedings. EEG neg for seizures CTA noted no stroke or aneurysm. labs good today Plan Plan of Care Problems Medical Problems: (1) Altered level of consciousness Status: Acute (2) BPH (benign prostatic hyperplasia) Status: Chronic (3) GERD (gastroesophageal reflux disease) Status: Chronic (4) HTN (hypertension) Status: Chronic (5) Hyperglycemia Status: Acute (6) Hypoglycemia Status: Acute Comment Review of Relevant I have reviewed the following items aden (where applicable) has been applied. Labs Laboratory Tests Test 04/10/19 11:58 04/10/19 18:09 04/11/19 00:00 04/11/19 04:00 Glucose (Fingerstick) 123 mg/dL (70-99) 140 mg/dL (70-99) 126 mg/dL (70-99) White Blood Count 9.9 x10^3/uL (4.0-11.0) Red Blood Count 3.58 x10^6/uL (4.30-5.70) Hemoglobin 11.1 g/dL (13.0-17.5) Hematocrit 32.5 % (39.0-53.0) Mean Corpuscular Volume 91 fL (79-100) Mean Corpuscular Hemoglobin 31 pg (25-35) Mean Corpuscular Hemoglobin Concent 34 g/dL (31-37) Red Cell Distribution Width 14.8 % (11.5-14.5) Platelet Count 207 x10^3/uL (140-400) Neutrophils (%) (Auto) 74 % (31-73) Lymphocytes (%) (Auto) 11 % (24-48) Monocytes (%) (Auto) 11 % (0-9) Eosinophils (%) (Auto) 4 % (0-3) Basophils (%) (Auto) 0 % (0-3) Neutrophils # (Auto) 7.4 x10^3/uL (1.8-7.7) Lymphocytes # (Auto) 1.1 x10^3/uL (1.0-4.8) Monocytes # (Auto) 1.0 x10^3/uL (0.0-1.1) Eosinophils # (Auto) 0.4 x10^3/uL (0.0-0.7) Basophils # (Auto) 0.0 x10^3/uL (0.0-0.2) Sodium Level 143 mmol/L (136-145) Potassium Level 3.7 mmol/L (3.5-5.1) Chloride Level 111 mmol/L (98-107) Carbon Dioxide Level 24 mmol/L (21-32) Anion Gap 8 (6-14) Blood Urea Nitrogen 18 mg/dL (8-26) Creatinine 0.7 mg/dL (0.7-1.3) Estimated GFR (Cockcroft-Gault) 110.9 Glucose Level 140 mg/dL (70-99) Calcium Level 7.8 mg/dL (8.5-10.1) Test 04/11/19 05:59 04/11/19 08:00 Glucose (Fingerstick) 120 mg/dL (70-99) O2 Saturation 95 % (92-99) Arterial Blood pH 7.45 (7.35-7.45) Arterial Blood pCO2 at Patient Temp 31 mmHg (35-46) Arterial Blood pO2 at Patient Temp 78 mmHg (65-108) Arterial Blood HCO3 21 mmol/L (21-28) Arterial Blood Base Excess -2 mmol/L (-3-3) FiO2 40 Medications Current Medications Albuterol/ Ipratropium (Duoneb) 3 ml 1X ONCE NEB ; Start 04/10/19 at 11:00; Stop 04/10/19 at 11:12; Status DC Albuterol/ Ipratropium (Duoneb) 3 ml RTQID NEB Last administered on 04/11/19at 08:40; Start 04/10/19 at 12:00 Fentanyl Citrate 30 ml @ 0 mls/hr CONT PRN IV SEE PROTOCOL Last administered on 04/11/19at 08:38; Start 04/11/19 at 07:15 Levofloxacin/ Dextrose 100 ml @ 100 mls/hr Q24H IV Last administered on 04/11/19at 10:41; Start 04/10/19 at 11:00 Linezolid/Dextrose 300 ml @ 300 mls/hr Q12HR IV Last administered on 04/11/19at 08:10; Start 04/10/19 at 11:00 Sodium Chloride 500 ml @ 500 mls/hr 1X ONCE IV Last administered on 04/11/19at 10:34; Start 04/11/19 at 10:30; Stop 04/11/19 at 11:29 Sodium Chloride 1,000 ml @ 125 mls/hr Q8H IV Last administered on 04/11/19at 10:34; Start 04/11/19 at 10:30 Vitals/I & O Vital Sign - Last 24 Hours 04/10/19 04/10/19 04/10/1904/10/19 11:00 11:57 12:00 12:00 Temp 98.4 98.4 Pulse 87 83 Resp 20 15 B/P (MAP) 102/72 (82) 103/66 (78) Pulse Ox 97 97 97 O2 Delivery Ventilator Ventilator Ventilator Mechanical Ventilator 04/10/19 04/10/19 04/10/19 04/10/19 13:30 14:00 15:00 16:00 Pulse 80 76 70 Resp 15 17 17 B/P (MAP) 99/66 (77) 92/56 (68) 85/63 (70) Pulse Ox 98 98 99 O2 Delivery Ventilator Ventilator Ventilator Mechanical Ventilator 04/10/19 04/10/19 04/10/19 04/10/19 16:00 16:01 16:40 17:00 Temp 97.9 97.9 Pulse 97 68 79 Resp 13 20 B/P (MAP) 82/58 (66) 82/58 104/73 (83) Pulse Ox 97 98 97 O2 Delivery Ventilator Ventilator Ventilator 04/10/19 04/10/19 04/10/19 04/10/19 18:00 19:00 19:59 20:00 Pulse 79 71 Resp 19 16 B/P (MAP) 88/57 (67) 96/68 (77) Pulse Ox 98 98 98 O2 Delivery Ventilator Ventilator Ventilator Mechanical Ventilator 04/10/19 04/10/19 04/10/19 04/10/19 20:00 21:00 21:16 22:00 Temp 99.3 99.3 Pulse 74 79 81 78 Resp 18 18 16 B/P (MAP) 110/66 (81) 83/57 (66) 101/70 (80) Pulse Ox 97 97 98 O2 Delivery Ventilator Ventilator Ventilator 04/10/19 04/10/19 04/11/19 04/11/19 22:23 23:00 00:00 00:00 Temp 99.4 99.4 Pulse 73 70 Resp 16 18 B/P (MAP) 100/67 (78) 110/69 (83) Pulse Ox 97 98 97 O2 Delivery Ventilator Ventilator Mechanical Ventilator Ventilator 04/11/19 04/11/19 04/11/19 04/11/19 00:20 01:00 02:00 02:44 Pulse 76 78 Resp 16 22 B/P (MAP) 110/67 (81) 106/68 (81) Pulse Ox 97 98 97 97 O2 Delivery Ventilator Ventilator Ventilator Ventilator 04/11/19 04/11/19 04/11/19 04/11/19 03:00 04:00 04:00 05:00 Temp 98.9 98.9 Pulse 76 76 83 Resp 18 18 17 B/P (MAP) 95/63 (74) 98/68 (78) 91/68 (76) Pulse Ox 98 98 98 O2 Delivery Ventilator Mechanical Ventilator Ventilator Ventilator 04/11/19 04/11/19 04/11/19 04/11/19 05:25 06:00 06:14 07:00 Pulse 77 78 75 Resp 17 18 B/P (MAP) 93/65 (74) 93/65 (74) Pulse Ox 98 98 98 O2 Delivery Ventilator Ventilator Ventilator 04/11/19 04/11/19 04/11/19 04/11/19 08:00 08:00 08:00 08:38 Temp 99.0 99.0 Pulse 73 Resp 18 21 B/P (MAP) 103/68 (80) Pulse Ox 97 98 97 O2 Delivery Ventilator Ventilator Mechanical Ventilator Ventilator 04/11/19 04/11/19 04/11/19 04/11/19 09:00 09:13 10:00 10:02 Pulse 74 82 Resp 14 14 16 B/P (MAP) 84/59 (67) 82/60 (67) Pulse Ox 99 99 97 96 O2 Delivery Ventilator Ventilator Ventilator Ventilator Intake and Output 04/10/19 04/10/19 04/11/19 15:00 23:00 07:00 Intake Total 700 ml 1138 ml 1989 ml Output Total 875 ml 1030 ml 970 ml Balance -175 ml 108 ml 1019 ml ROSALVA GOODWIN MD Apr 11, 2019 10:59
[2019-04-11] MEDS: MINERAL OIL/PETROLATUM,WHITE OPHTH OINT 3.5GM TUBE. OU PRN (12:11)
--- NOTE | 2019-04-11 13:48 | PDOC ---
PROGRESS NOTES Assessment Assessment Metabolic encephalopathy. Respiratory failure. Seizure or seizure like episode, provoked. Hypoglycemia, glucose level 20. Hyperglycemia, glucose level 350. DM. HTN. Intellectual disability. RECOMMENDATIONS/PLAN: Life support in ICU at the present time. Treat medical diseases. Ativan 1 mg IV PRN q4h if has further seizure. Keppra 500 mg IV q12h if has further seizures. EEG on 04/08/19: Encephalopathy. HISTORY OF PRESENT ILLNESS This is a 74-y-old male patient [facility] listed diseases and intellectual disability was found by the staff in the bed unresponsive. EMS arrived and noted his glucose level was at 20, so he was administrated D50 but his mentation remains poor. He was then intubated to secure airway due to respiratory distress/failure and he was brought to the ER of [facility]. Upon admission he was noted with SVT in ICU lasting about 3 minutes. Adenosine x1 was given. Neurology was requested for consultation for a seizure or seizure like episode. He was reportedly to have vague history of seizure in the past, but not AEDs. His HCT and CTA are unremarkable. On vent relatively stable on 04/11/19. PAST MEDICAL HISTORY Cardiovascular: HTN CENTRAL NERVOUS SYSTEM: Mental retardation. GI: GERD Musculoskeletal: Osteoarthritis Renal/: UTI, Benign prostatic enlargement. PAST SURGICAL HISTORY TURP; ligia fundoplication. FAMILY HISTORY No information is available at this time. SOCIAL HISTORY Smoke: No ALCOHOL: none Drugs: None Lives: Alone (assited living) ALLERGIES Coded Allergies: Cephalosporins (Verified Allergy, Intermediate, 07/13/15) Penicillins (Verified Allergy, Intermediate, 07/13/15) carbamazepine (Verified Allergy, Intermediate, 07/13/15) meropenem (Verified Allergy, Intermediate, 07/12/15) BETA LACTAMS penicillamine (Verified Allergy, Intermediate, 07/13/15) I S O L A T I O N *CONTACT* (Verified Allergy, Unknown, 07/11/15), mrsa + MEDICATIONS: Refer to MAR REVIEW OF SYSTEMS: Constitutional: No malnutrition, weight loss, cachexia. Head: No traumatic brain injury. Skin: No edema, or rash. Ear: No infection. Eyes: No vision loss or color blindness. Nose: No bleeding or purulent discharges. Hearing: No hearing decrease. Neck: No injury. Cardiac: HTN. Pulmonary: No COPD. GI: No GI ulcer, GI bleeding. Urinary/genital: UTI. Endocrinologic: Diabetes Mellitus? Skeletomuscular: No muscular atrophy, deformity. Neurological: see HP. Psychiatric: Denies drug use/abuse. Otherwise, not [id number] review of systems. PHYSICAL EXAMINATION: General appearance is in subacute distress. HEENT: Normocephalic and nontraumatic. Eyes, nose, ears, and throat are unremarkable. Neck is supple. No lymphadenopathy. No crepitus. Cardiovascular: S1, S2, PAC appreciated. Pulmonary: On vent. Abdomen: Bowel sounds are positive. Extremities: No rash, lesions, or edema. NEUROLOGICAL EXAMINATION: Unresponsive. On vent. Not oriented to time, place and person. PERRL. EOMI not elicited. CN: no focal findings. Muscle tone: Decreased. Muscle strength: No movements to stimuli. DTR: 0-1 Plantar reflex: No response bilaterally. Gait: Unable to walk at the present time. Sensory exam: no response. Not able to access cerebellar signs. F-T-N test not performed due to unresponsiveness. Objective Objective Vital Signs Date Time Temp Pulse Resp B/P (MAP) Pulse Ox O2 Delivery O2 Flow Rate FiO2 04/11/19 13:00 69 13 96/61 (73) 98 Ventilator 04/11/19 12:00 97.9 97.9 Intake and Output 04/11/19 07:00 Intake Total 3827 ml Output Total 2875 ml Balance 952 ml IV Total 1715 ml Tube Feeding 1712 ml Blood Product IV Normal Saline Flush 200 ml Other 200 ml Output Urine Total 2875 ml # Bowel Movements 1 Vitals Signs Vitals VS - Last 72 Hours, by Label Date Time Temp Pulse Resp B/P (MAP) Pulse Ox O2 Delivery O2 Flow Rate FiO2 04/11/19 13:00 69 13 96/61 (73) 98 Ventilator 04/11/19 12:22 98 Ventilator 04/11/19 12:00 97.9 72 16 97/62 (74) 96 Ventilator 97.9 04/11/19 11:55 Mechanical Ventilator 04/11/19 11:00 74 14 87/67 (74) 96 Ventilator 04/11/19 10:02 96 Ventilator 04/11/19 10:00 82 16 82/60 (67) 97 Ventilator 04/11/19 09:13 14 99 Ventilator 04/11/19 09:00 74 14 84/59 (67) 99 Ventilator 818/19 08:38 21 97 Ventilator 818/19 08:00 Mechanical Ventilator 818/19 08:00 99.0 73 18 103/68 (80) 98 Ventilator 99.0 18 08:00 97 Ventilator 8/18/ 07:00 75 18 93/65 (74) 98 Ventilator 818/ 06:14 78 04/11/19 06:00 77 17 93/65 (74) 98 Ventilator 818/19 05:25 98 Ventilator 818/19 05:00 83 17 91/68 (76) 98 Ventilator 8/ 04:00 98.9 76 18 98/68 (78) 98 Ventilator 98.9 04/11/19 04:00 Mechanical Ventilator 818 03:00 76 18 95/63 (74) 98 Ventilator 04/11/19 02:44 97 Ventilator 8 02:00 78 22 106/68 (81) 97 Ventilator 04/11/19 01:00 76 16 110/67 (81) 98 Ventilator 818/19 00:20 97 Ventilator 818/ 00:00 99.4 70 18 110/69 (83) 97 Ventilator 99.4 04/11/19 00:00 Mechanical Ventilator 04/10/19 23:00 73 16 100/67 (78) 98 Ventilator 819 22:23 97 Ventilator 817/19 22:00 78 16 101/70 (80) 98 Ventilator 04/10/19 21:16 81 04/10/19 21:00 79 18 83/57 (66) 97 Ventilator 819 20:00 99.3 74 18 110/66 (81) 97 Ventilator 99.3 04/10/19 20:00 Mechanical Ventilator 819 19:59 98 Ventilator 819 19:00 71 16 96/68 (77) 98 Ventilator 8/17/19 18:00 79 19 88/57 (67) 98 Ventilator 8/17/19 17:00 79 20 104/73 (83) 97 Ventilator 819 16:40 98 Ventilator 8 16:01 68 82/58 8 16:00 97.9 97 13 82/58 (66) 97 Ventilator 97.9 8 16:00 Mechanical Ventilator 04/10/19 15:00 70 17 85/63 (70) 99 Ventilator 04/10/19 14:00 76 17 92/56 (68) 98 Ventilator 04/10/19 13:30 80 15 99/66 (77) 98 Ventilator 04/10/19 12:00 Mechanical Ventilator 04/10/19 12:00 98.4 83 15 103/66 (78) 97 Ventilator 98.4 04/10/19 11:57 97 Ventilator 04/10/19 11:00 87 20 102/72 (82) 97 Ventilator 04/10/19 10:00 82 29 118/75 (89) 97 Ventilator 04/10/19 09:01 97 Ventilator 04/10/19 09:00 75 20 99/60 (73) 97 Ventilator 04/10/19 08:00 Mechanical Ventilator 04/10/19 08:00 80 18 97/61 (73) 97 Ventilator 04/10/19 07:00 98.1 79 23 95/62 (73) 98 Ventilator 98.1 Laboratory Laboratory Laboratory Tests Test 04/10/19 18:09 04/11/19 00:00 04/11/19 04:00 04/11/19 05:59 Glucose (Fingerstick) 140 mg/dL (70-99) 126 mg/dL (70-99) 120 mg/dL (70-99) White Blood Count 9.9 x10^3/uL (4.0-11.0) Red Blood Count 3.58 x10^6/uL (4.30-5.70) Hemoglobin 11.1 g/dL (13.0-17.5) Hematocrit 32.5 % (39.0-53.0) Mean Corpuscular Volume 91 fL (79-100) Mean Corpuscular Hemoglobin 31 pg (25-35) Mean Corpuscular Hemoglobin Concent 34 g/dL (31-37) Red Cell Distribution Width 14.8 % (11.5-14.5) Platelet Count 207 x10^3/uL (140-400) Neutrophils (%) (Auto) 74 % (31-73) Lymphocytes (%) (Auto) 11 % (24-48) Monocytes (%) (Auto) 11 % (0-9) Eosinophils (%) (Auto) 4 % (0-3) Basophils (%) (Auto) 0 % (0-3) Neutrophils # (Auto) 7.4 x10^3/uL (1.8-7.7) Lymphocytes # (Auto) 1.1 x10^3/uL (1.0-4.8) Monocytes # (Auto) 1.0 x10^3/uL (0.0-1.1) Eosinophils # (Auto) 0.4 x10^3/uL (0.0-0.7) Basophils # (Auto) 0.0 x10^3/uL (0.0-0.2) Sodium Level 143 mmol/L (136-145) Potassium Level 3.7 mmol/L (3.5-5.1) Chloride Level 111 mmol/L (98-107) Carbon Dioxide Level 24 mmol/L (21-32) Anion Gap 8 (6-14) Blood Urea Nitrogen 18 mg/dL (8-26) Creatinine 0.7 mg/dL (0.7-1.3) Estimated GFR (Cockcroft-Gault) 110.9 Glucose Level 140 mg/dL (70-99) Calcium Level 7.8 mg/dL (8.5-10.1) Test 04/11/19 08:00 04/11/19 11:35 O2 Saturation 95 % (92-99) Arterial Blood pH 7.45 (7.35-7.45) Arterial Blood pCO2 at Patient Temp 31 mmHg (35-46) Arterial Blood pO2 at Patient Temp 78 mmHg (65-108) Arterial Blood HCO3 21 mmol/L (21-28) Arterial Blood Base Excess -2 mmol/L (-3-3) FiO2 40 Glucose (Fingerstick) 121 mg/dL (70-99) Microbiology 04/10/19 Blood Culture - Preliminary, Resulted NO GROWTH AFTER 1 DAY Medication Medications Current Medications Fentanyl Citrate 30 ml @ 0 mls/hr CONT PRN IV SEE PROTOCOL Last administered on 04/11/19at 08:38; Start 04/11/19 at 07:15 Sodium Chloride 500 ml @ 500 mls/hr 1X ONCE IV Last administered on 04/11/19at 10:34; Start 04/11/19 at 10:30; Stop 04/11/19 at 11:29; Status DC Sodium Chloride 500 ml @ 500 mls/hr 1X ONCE IV ; Start 8/18/19 at 11:00; Stop 04/11/19 at 11:59; Status DC Sodium Chloride 1,000 ml @ 125 mls/hr Q8H IV Last administered on 04/11/19at 10:34; Start 04/11/19 at 10:30 Comment Review of Relevant I have reviewed the following items aden (where applicable) has been applied. VANESSA EASTMAN MD Apr 11, 2019 13:48
[2019-04-11] MEDS: LORazepam 0.5 MG TABLET PO SCH (20:47)
[2019-04-11] MEDS: ENOXAPARIN 40 MG/0.4 ML SYRINGE. SQ SCH (20:47)
[2019-04-12] VITALS (22 sets, daily range): BP systolic 88–113; BP diastolic 55–74
[2019-04-12] MEDS: PROPOFOL 100 ML IV PRN ×3 (00:49→22:08)
[2019-04-12] MEDS: IV NORMAL SALINE 1000ML BAG 1,000 ML IV SCH ×3 (04:03→22:05)
[2019-04-12 05:53] LABS: CALCIUM 7.8 mg/dL (8.5-10.1); CREATININE 0.7 mg/dL (0.7-1.3); GFR 110.9; POTASSIUM 3.8 mmol/L (3.5-5.1)
[2019-04-12] MEDS: INSULIN LISPRO 300 UNITS/3 ML VIAL. SQ SCH ×4 (06:00→17:13)
[2019-04-12 06:01] LABS: BASO % 0 % (0-3); EOS # 0.6 x10^3/uL (0.0-0.7); EOS % 8 % (0-3); HEMATOCRIT 33.8 % (39.0-53.0); HEMOGLOBIN 11.6 g/dL (13.0-17.5); LYMPH # 1.7 x10^3/uL (1.0-4.8); LYMPH % 21 % (24-48); MEAN CORPUSCULAR HEMOGLOBIN 31 pg (25-35); MEAN CORPUSCULAR HGB CONC 34 g/dL (31-37); MEAN CORPUSCULAR VOLUME 91 fL (79-100); MONO # 0.9 x10^3/uL (0.0-1.1); MONO % 11 % (0-9); NEUT # 4.8 x10^3/uL (1.8-7.7); NEUT % 60 % (31-73); PLATELET COUNT 218 x10^3/uL (140-400); RED BLOOD COUNT 3.71 x10^6/uL (4.30-5.70)
--- NOTE | 2019-04-12 07:58 | PDOC ---
Infectious Disease Note Subjective: Subjective Remains intubated and sedated. FiO2 40%, PEEP 5 Tube feedings via OGT No fevers last 24 hours ROS: ROS unable to obtain d/w rn Vital Signs: Vital Signs Vital Signs Date Time Temp Pulse Resp B/P (MAP) Pulse Ox O2 Delivery O2 Flow Rate FiO2 04/12/19 07:19 99 Ventilator 04/12/19 06:00 80 15 109/68 (82) 04/12/19 04:00 98.6 98.6 Physical Exam: PHYSICAL EXAM GENERAL: Sedated, orally intubated gentleman, not in any distress. HEENT: Pupils equal. ETT, OGT NECK: Supple LUNGS: Clear. HEART: S1, S2 regular. ABDOMEN: Soft, BS present : Ortega EXTREMITIES: trace edema, no cyanosis. SKIN: warm to touch. No signs of rash NEUROLOGIC: Sedated, moves legs some PIVs Medications: Inpatient Meds: Current Medications Medications (Trade) Dose Ordered Sig/Jason Start Time Stop Time Status Last Admin Dose Admin Acetaminophen (Tylenol) 650 mg PRN BID PRN 04/06/19 20:00 Adenosine (Adenocard) 6 mg 1X ONCE 04/07/19 11:30 04/07/19 11:31 DC 04/07/19 11:24 6 MG Albuterol/ Ipratropium (Duoneb) 3 ml 1X ONCE 04/10/19 11:00 04/10/19 11:12 DC Aspirin (Children'S Aspirin) 81 mg DAILY 04/07/19 09:00 04/11/19 08:01 81 MG Dextrose 250 ml PRN Q15MIN PRN 04/06/19 20:00 Dextrose (Dextrose 50%-Water Syringe) 12.5 gm PRN Q15MIN PRN 04/06/19 20:00 Diltiazem HCl (Cardizem) 30 mg Q8HRS 04/07/19 12:00 04/11/19 06:14 30 MG Enoxaparin Sodium (Lovenox 40mg Syringe) 40 mg Q24H 04/06/19 21:00 04/11/19 20:48 40 MG Etomidate (Amidate) 20 mg 1X ONCE 04/06/19 17:30 04/06/19 17:31 DC 04/06/19 19:47 20 MG Fentanyl Citrate 30 ml @ 0 mls/hr CONT PRN 04/11/19 07:15 04/12/19 05:09 2.5 MLS/HR Info (CONTRAST GIVEN -- Rx MONITORING) 1 each PRN DAILY PRN 04/06/19 17:45 04/08/19 17:44 DC Insulin Human Lispro (HumaLOG) 0-7 UNITS Q6HRS 04/07/19 18:00 Iohexol (Omnipaque 350 Mg/ml) 75 ml 1X ONCE 04/06/19 17:45 04/06/19 17:46 DC 04/06/19 17:56 75 ML Levofloxacin/ Dextrose 100 ml @ 100 mls/hr Q24H 04/10/19 11:00 04/11/19 10:41 100 MLS/HR Linezolid/Dextrose 300 ml @ 300 mls/hr Q12HR 04/10/19 11:00 04/11/19 20:48 300 MLS/HR Lorazepam (Ativan) 0.5 mg HS 04/06/19 21:00 04/11/19 20:48 0.5 MG Multi-Ingred Cream/Lotion/Oil/ Oint (Artificial Tears Eye Ointment) 1 valerie PRN Q1HR PRN 04/07/19 11:15 04/11/19 12:11 1 VALERIE Multivitamins (Thera M Plus) 1 tab DAILY 04/07/19 09:00 04/11/19 08:01 1 TAB Naloxone HCl (Narcan) 2 mg 1X ONCE 04/06/19 18:45 04/06/19 18:46 DC 04/06/19 19:47 2 MG Pantoprazole Sodium (PROTONIX VIAL for IV PUSH) 40 mg DAILYAC 04/07/19 07:30 04/11/19 07:59 40 MG Potassium Bicarbonate (Potassium Effervescent Tablet) 20 meq 1X ONCE 04/08/19 14:30 04/08/19 14:31 DC 04/08/19 16:20 20 MEQ Propofol 100 ml @ 1.164 mls/ hr CONT PRN 04/07/19 02:15 04/12/19 00:49 9.311 MLS/HR Sodium Chloride 500 ml @ 500 mls/hr 1X ONCE 04/11/19 11:00 04/11/19 11:59 DC Succinylcholine Chloride (Anectine) 100 mg 1X ONCE 04/06/19 17:30 8/13/19 17:31 DC 04/06/19 19:47 100 MG Tamsulosin HCl (Flomax) 0.4 mg DAILY 04/07/19 09:00 04/11/19 08:01 0.4 MG Labs: Lab Laboratory Tests Test 04/11/19 08:00 04/11/19 11:35 04/11/19 18:02 04/12/19 00:46 O2 Saturation 95 % (92-99) Arterial Blood pH 7.45 (7.35-7.45) Arterial Blood pCO2 at Patient Temp 31 mmHg (35-46) Arterial Blood pO2 at Patient Temp 78 mmHg (65-108) Arterial Blood HCO3 21 mmol/L (21-28) Arterial Blood Base Excess -2 mmol/L (-3-3) FiO2 40 Glucose (Fingerstick) 121 mg/dL (70-99) 106 mg/dL (70-99) 92 mg/dL (70-99) Test 04/12/19 05:11 04/12/19 05:25 Glucose (Fingerstick) 81 mg/dL (70-99) White Blood Count 8.0 x10^3/uL (4.0-11.0) Red Blood Count 3.71 x10^6/uL (4.30-5.70) Hemoglobin 11.6 g/dL (13.0-17.5) Hematocrit 33.8 % (39.0-53.0) Mean Corpuscular Volume 91 fL (79-100) Mean Corpuscular Hemoglobin 31 pg (25-35) Mean Corpuscular Hemoglobin Concent 34 g/dL (31-37) Red Cell Distribution Width 15.0 % (11.5-14.5) Platelet Count 218 x10^3/uL (140-400) Neutrophils (%) (Auto) 60 % (31-73) Lymphocytes (%) (Auto) 21 % (24-48) Monocytes (%) (Auto) 11 % (0-9) Eosinophils (%) (Auto) 8 % (0-3) Basophils (%) (Auto) 0 % (0-3) Neutrophils # (Auto) 4.8 x10^3/uL (1.8-7.7) Lymphocytes # (Auto) 1.7 x10^3/uL (1.0-4.8) Monocytes # (Auto) 0.9 x10^3/uL (0.0-1.1) Eosinophils # (Auto) 0.6 x10^3/uL (0.0-0.7) Basophils # (Auto) 0.0 x10^3/uL (0.0-0.2) Sodium Level 142 mmol/L (136-145) Potassium Level 3.8 mmol/L (3.5-5.1) Chloride Level 110 mmol/L (98-107) Carbon Dioxide Level 25 mmol/L (21-32) Anion Gap 7 (6-14) Blood Urea Nitrogen 19 mg/dL (8-26) Creatinine 0.7 mg/dL (0.7-1.3) Estimated GFR (Cockcroft-Gault) 110.9 Glucose Level 96 mg/dL (70-99) Calcium Level 7.8 mg/dL (8.5-10.1) Objective: Assessment: Nausea, vomiting with suspected aspiration. Low-grade fever. Leukocytosis - better Respiratory failure. Hypoglycemia. Autism. Hypertension. Benign prostatic hypertrophy. Multiple ANTIBIOTIC ALLERGIES: PCN, meropenem, cephalosporins. ? reaction Plan: Plan of Care Continue Zyvox and Levaquin ? allergy to all beta lactams,unable to get details f/u cultures Supportive care D/w nursing Critically ill BROOK RIVAS MD Apr 12, 2019 07:58
[2019-04-12] MEDS: MULTIVITAMIN with MINERAL TABLET. PO SCH (08:11)
[2019-04-12] MEDS: dilTIAZem HCL 30 MG TABLET PO SCH ×3 (08:11→22:07)
[2019-04-12] MEDS: PANTOPRAZOLE IV PUSH 40 MG VIAL. IVP SCH (08:11)
[2019-04-12] MEDS: ASPIRIN CHEWABLE 81 MG TABLET. PO SCH (08:12)
[2019-04-12] MEDS: TAMSULOSIN 0.4 MG CAP.ER.24H. PO SCH (08:12)
[2019-04-12] MEDS: IPRATRPIUM/ALBUTEROL 0.5/2.5MG 3 ML NEBU. NEB SCH ×4 (08:43→19:49)
[2019-04-12 08:57] LABS: BASE EXCESS ABG 0 mmol/L (-3-3); HCO3 ABG 24 mmol/L (21-28); PCO2 ABG 37 mmHg (35-46); PO2 ABG 83 mmHg (65-108); SAT O2 ABG 96 % (92-99)
[2019-04-12 09:01] LABS: FIO2 ABG 40
--- NOTE | 2019-04-12 09:28 | PDOC ---
PROGRESS NOTES Assessment Problems Medical Problems: (1) Altered level of consciousness Status: Acute (2) BPH (benign prostatic hyperplasia) Status: Chronic (3) GERD (gastroesophageal reflux disease) Status: Chronic (4) HTN (hypertension) Status: Chronic (5) Hyperglycemia Status: Acute (6) Hypoglycemia Status: Acute Metabolic encephalopathy. Respiratory failure. Seizure or seizure like episode, provoked, EEG on 04/08/19: Encephalopathy. Hypoglycemia, glucose level 20. Hyperglycemia, glucose level 350. Intellectual disability. Plan Continue ICU Treat medical diseases. Ativan 1 mg IV PRN q4h if has further seizure. Holding on adding anticonvulsant Subjective None Objective Vital Signs Date Time Temp Pulse Resp B/P (MAP) Pulse Ox O2 Delivery O2 Flow Rate FiO2 04/12/19 08:43 97 Ventilator 04/12/19 08:12 75 109/71 04/12/19 06:00 15 04/12/19 04:00 98.6 98.6 Intake and Output 04/12/19 07:00 Intake Total 4874.69 ml Output Total 1310 ml Balance 3564.69 ml IV Total 2266.69 ml Tube Feeding 2008 ml Other 600 ml Output Urine Total 1260 ml Gastric Drainage Total 50 ml # Bowel Movements 1 PHYSICAL EXAM Alert. Opens eyes to voice, follows a few commands PERRL. EOMI. CN: no focal findings. Muscle tone: normal. Muscle strength: moves all extremities DTR: 1+ Plantar reflex: silent Gait: not examined in bed. Sensory exam: no abnormal findings. Cerebellar: not cooperative Review of Relevant I have reviewed the following items aden (where applicable) has been applied. Labs Laboratory Tests Test 04/10/19 11:58 04/10/19 18:09 04/11/19 00:00 04/11/19 04:00 Glucose (Fingerstick) 123 mg/dL (70-99) 140 mg/dL (70-99) 126 mg/dL (70-99) White Blood Count 9.9 x10^3/uL (4.0-11.0) Red Blood Count 3.58 x10^6/uL (4.30-5.70) Hemoglobin 11.1 g/dL (13.0-17.5) Hematocrit 32.5 % (39.0-53.0) Mean Corpuscular Volume 91 fL (79-100) Mean Corpuscular Hemoglobin 31 pg (25-35) Mean Corpuscular Hemoglobin Concent 34 g/dL (31-37) Red Cell Distribution Width 14.8 % (11.5-14.5) Platelet Count 207 x10^3/uL (140-400) Neutrophils (%) (Auto) 74 % (31-73) Lymphocytes (%) (Auto) 11 % (24-48) Monocytes (%) (Auto) 11 % (0-9) Eosinophils (%) (Auto) 4 % (0-3) Basophils (%) (Auto) 0 % (0-3) Neutrophils # (Auto) 7.4 x10^3/uL (1.8-7.7) Lymphocytes # (Auto) 1.1 x10^3/uL (1.0-4.8) Monocytes # (Auto) 1.0 x10^3/uL (0.0-1.1) Eosinophils # (Auto) 0.4 x10^3/uL (0.0-0.7) Basophils # (Auto) 0.0 x10^3/uL (0.0-0.2) Sodium Level 143 mmol/L (136-145) Potassium Level 3.7 mmol/L (3.5-5.1) Chloride Level 111 mmol/L (98-107) Carbon Dioxide Level 24 mmol/L (21-32) Anion Gap 8 (6-14) Blood Urea Nitrogen 18 mg/dL (8-26) Creatinine 0.7 mg/dL (0.7-1.3) Estimated GFR (Cockcroft-Gault) 110.9 Glucose Level 140 mg/dL (70-99) Calcium Level 7.8 mg/dL (8.5-10.1) Test 04/11/19 05:59 04/11/19 08:00 04/11/19 11:35 04/11/19 18:02 Glucose (Fingerstick) 120 mg/dL (70-99) 121 mg/dL (70-99) 106 mg/dL (70-99) O2 Saturation 95 % (92-99) Arterial Blood pH 7.45 (7.35-7.45) Arterial Blood pCO2 at Patient Temp 31 mmHg (35-46) Arterial Blood pO2 at Patient Temp 78 mmHg (65-108) Arterial Blood HCO3 21 mmol/L (21-28) Arterial Blood Base Excess -2 mmol/L (-3-3) FiO2 40 Test 04/12/19 00:46 04/12/19 05:11 04/12/19 05:25 04/12/19 08:50 Glucose (Fingerstick) 92 mg/dL (70-99) 81 mg/dL (70-99) White Blood Count 8.0 x10^3/uL (4.0-11.0) Red Blood Count 3.71 x10^6/uL (4.30-5.70) Hemoglobin 11.6 g/dL (13.0-17.5) Hematocrit 33.8 % (39.0-53.0) Mean Corpuscular Volume 91 fL (79-100) Mean Corpuscular Hemoglobin 31 pg (25-35) Mean Corpuscular Hemoglobin Concent 34 g/dL (31-37) Red Cell Distribution Width 15.0 % (11.5-14.5) Platelet Count 218 x10^3/uL (140-400) Neutrophils (%) (Auto) 60 % (31-73) Lymphocytes (%) (Auto) 21 % (24-48) Monocytes (%) (Auto) 11 % (0-9) Eosinophils (%) (Auto) 8 % (0-3) Basophils (%) (Auto) 0 % (0-3) Neutrophils # (Auto) 4.8 x10^3/uL (1.8-7.7) Lymphocytes # (Auto) 1.7 x10^3/uL (1.0-4.8) Monocytes # (Auto) 0.9 x10^3/uL (0.0-1.1) Eosinophils # (Auto) 0.6 x10^3/uL (0.0-0.7) Basophils # (Auto) 0.0 x10^3/uL (0.0-0.2) Sodium Level 142 mmol/L (136-145) Potassium Level 3.8 mmol/L (3.5-5.1) Chloride Level 110 mmol/L (98-107) Carbon Dioxide Level 25 mmol/L (21-32) Anion Gap 7 (6-14) Blood Urea Nitrogen 19 mg/dL (8-26) Creatinine 0.7 mg/dL (0.7-1.3) Estimated GFR (Cockcroft-Gault) 110.9 Glucose Level 96 mg/dL (70-99) Calcium Level 7.8 mg/dL (8.5-10.1) O2 Saturation 96 % (92-99) Arterial Blood pH 7.43 (7.35-7.45) Arterial Blood pCO2 at Patient Temp 37 mmHg (35-46) Arterial Blood pO2 at Patient Temp 83 mmHg (65-108) Arterial Blood HCO3 24 mmol/L (21-28) Arterial Blood Base Excess 0 mmol/L (-3-3) FiO2 40 Laboratory Tests Test 04/11/19 11:35 04/11/19 18:02 04/12/19 00:46 04/12/19 05:11 Glucose (Fingerstick) 121 mg/dL (70-99) 106 mg/dL (70-99) 92 mg/dL (70-99) 81 mg/dL (70-99) Test 04/12/19 05:25 04/12/19 08:50 White Blood Count 8.0 x10^3/uL (4.0-11.0) Red Blood Count 3.71 x10^6/uL (4.30-5.70) Hemoglobin 11.6 g/dL (13.0-17.5) Hematocrit 33.8 % (39.0-53.0) Mean Corpuscular Volume 91 fL (79-100) Mean Corpuscular Hemoglobin 31 pg (25-35) Mean Corpuscular Hemoglobin Concent 34 g/dL (31-37) Red Cell Distribution Width 15.0 % (11.5-14.5) Platelet Count 218 x10^3/uL (140-400) Neutrophils (%) (Auto) 60 % (31-73) Lymphocytes (%) (Auto) 21 % (24-48) Monocytes (%) (Auto) 11 % (0-9) Eosinophils (%) (Auto) 8 % (0-3) Basophils (%) (Auto) 0 % (0-3) Neutrophils # (Auto) 4.8 x10^3/uL (1.8-7.7) Lymphocytes # (Auto) 1.7 x10^3/uL (1.0-4.8) Monocytes # (Auto) 0.9 x10^3/uL (0.0-1.1) Eosinophils # (Auto) 0.6 x10^3/uL (0.0-0.7) Basophils # (Auto) 0.0 x10^3/uL (0.0-0.2) Sodium Level 142 mmol/L (136-145) Potassium Level 3.8 mmol/L (3.5-5.1) Chloride Level 110 mmol/L (98-107) Carbon Dioxide Level 25 mmol/L (21-32) Anion Gap 7 (6-14) Blood Urea Nitrogen 19 mg/dL (8-26) Creatinine 0.7 mg/dL (0.7-1.3) Estimated GFR (Cockcroft-Gault) 110.9 Glucose Level 96 mg/dL (70-99) Calcium Level 7.8 mg/dL (8.5-10.1) O2 Saturation 96 % (92-99) Arterial Blood pH 7.43 (7.35-7.45) Arterial Blood pCO2 at Patient Temp 37 mmHg (35-46) Arterial Blood pO2 at Patient Temp 83 mmHg (65-108) Arterial Blood HCO3 24 mmol/L (21-28) Arterial Blood Base Excess 0 mmol/L (-3-3) FiO2 40 Microbiology 04/10/19 Blood Culture - Preliminary, Resulted NO GROWTH AFTER 1 DAY Medications Current Medications Etomidate (Amidate) 20 mg 1X ONCE IV Last administered on 04/06/19at 19:47; Start 04/06/19 at 17:30; Stop 04/06/19 at 17:31; Status DC Succinylcholine Chloride (Anectine) 100 mg 1X ONCE IV Last administered on 04/06/19at 19:47; Start 04/06/19 at 17:30; Stop 04/06/19 at 17:31; Status DC Propofol 50 ml @ As Directed STK-MED ONCE IV ; Start 04/06/19 at 17:27; Stop 04/06/19 at 17:28; Status DC Iohexol (Omnipaque 350 Mg/ml) 75 ml 1X ONCE IV Last administered on 04/06/19at 17:56; Start 04/06/19 at 17:45; Stop 04/06/19 at 17:46; Status DC Info (CONTRAST GIVEN -- Rx MONITORING) 1 each PRN DAILY PRN MC SEE COMMENTS; Start 04/06/19 at 17:45; Stop 04/08/19 at 17:44; Status DC Sodium Chloride 1,000 ml @ 1,000 mls/hr 1X ONCE IV Last administered on 04/06/19 19:47; Start 04/06/19 at 18:00; Stop 04/06/19 at 18:59; Status DC Propofol 50 ml @ 1.191 mls/ hr 1X ONCE IV Last administered on 04/06/19 19:47; Start 04/06/19 at 18:30; Stop 04/08/19 at 07:31; Status DC Naloxone HCl (Narcan) 2 mg STK-MED ONCE .ROUTE ; Start 04/06/19 at 18:38; Stop 04/06/19 at 18:38; Status DC Naloxone HCl (Narcan) 2 mg 1X ONCE IV Last administered on 04/06/19 19:47; Start 04/06/19 at 18:45; Stop 04/06/19 at 18:46; Status DC Sodium Chloride 1,000 ml @ 125 mls/hr Q8H IV Last administered on 04/07/19 08:28; Start 04/06/19 at 19:00; Stop 04/07/19 at 17:17; Status DC Pantoprazole Sodium (PROTONIX VIAL for IV PUSH) 40 mg DAILYAC IVP Last administered on 04/12/19 08:12; Start 04/07/19 at 07:30 Enoxaparin Sodium (Lovenox 40mg Syringe) 40 mg Q24H SQ Last administered on 04/11/19 20:48; Start 04/06/19 at 21:00 Acetaminophen (Tylenol) 650 mg PRN BID PRN PO PAIN; Start 04/06/19 at 20:00 Aspirin (Children'S Aspirin) 81 mg DAILY PO Last administered on 04/12/19 08:12; Start 04/07/19 at 09:00 Lorazepam (Ativan) 0.5 mg HS PO Last administered on 04/11/19 20:48; Start 04/06/19 at 21:00 Tamsulosin HCl (Flomax) 0.4 mg DAILY PO Last administered on 04/12/19 08:12; Start 04/07/19 at 09:00 Multivitamins (Thera M Plus) 1 tab DAILY PO Last administered on 04/12/19 08:12; Start 04/07/19 at 09:00 Insulin Human Lispro (HumaLOG) 0-7 UNITS TIDWMEALS SQ ; Start 04/07/19 at 08:00; Stop 04/07/19 at 15:12; Status DC Dextrose (Dextrose 50%-Water Syringe) 12.5 gm PRN Q15MIN PRN IV SEE COMMENTS; Start 04/06/19 at 20:00 Dextrose 250 ml PRN Q15MIN PRN IV SEE COMMENTS; Start 04/06/19 at 20:00 Propofol 100 ml @ As Directed STK-MED ONCE IV ; Start 04/07/19 at 01:11; Stop 04/07/19 at 01:11; Status DC Propofol 100 ml @ 1.164 mls/ hr CONT PRN IV SEDATION Last administered on 04/12/19at 00:49; Start 04/07/19 at 02:15 Multi-Ingred Cream/Lotion/Oil/ Oint (Artificial Tears Eye Ointment) 1 valerie PRN Q1HR PRN OU DRY EYE Last administered on 04/11/19at 12:11; Start 04/07/19 at 11:15 Adenosine (Adenocard) 6 mg STK-MED ONCE IV ; Start 04/07/19 at 11:20; Stop 04/07/19 at 11:21; Status DC Adenosine (Adenocard) 6 mg 1X ONCE IV Last administered on 04/07/19at 11:24; Start 04/07/19 at 11:30; Stop 04/07/19 at 11:31; Status DC Diltiazem HCl (Cardizem) 30 mg Q8HRS PO Last administered on 04/12/19at 08:12; Start 04/07/19 at 12:00 Insulin Human Lispro (HumaLOG) 0-7 UNITS Q6HRS SQ ; Start 04/07/19 at 18:00 Sodium Chloride 1,000 ml @ 100 mls/hr Q10H IV Last administered on 04/11/19at 01:23; Start 04/07/19 at 17:15; Stop 04/11/19 at 10:18; Status DC Potassium Bicarbonate (Potassium Effervescent Tablet) 20 meq 1X ONCE PEG Last administered on 04/08/19at 16:20; Start 04/08/19 at 14:30; Stop 04/08/19 at 14:31; Status DC Linezolid/Dextrose 300 ml @ 300 mls/hr Q12HR IV Last administered on 04/11/19at 20:48; Start 04/10/19 at 11:00 Levofloxacin/ Dextrose 100 ml @ 100 mls/hr Q24H IV Last administered on 04/11/19at 10:41; Start 04/10/19 at 11:00 Albuterol/ Ipratropium (Duoneb) 3 ml RTQID NEB Last administered on 04/12/19at 08:43; Start 04/10/19 at 12:00 Albuterol/ Ipratropium (Duoneb) 3 ml 1X ONCE NEB ; Start 04/10/19 at 11:00; Stop 04/10/19 at 11:12; Status DC Fentanyl Citrate 30 ml @ 0 mls/hr CONT PRN IV SEE PROTOCOL Last administered on 04/12/19at 05:09; Start 04/11/19 at 07:15 Sodium Chloride 1,000 ml @ 125 mls/hr Q8H IV Last administered on 04/12/19at 04:03; Start 04/11/19 at 10:30 Sodium Chloride 500 ml @ 500 mls/hr 1X ONCE IV Last administered on 04/11/19at 10:34; Start 04/11/19 at 10:30; Stop 04/11/19 at 11:29; Status DC Sodium Chloride 500 ml @ 500 mls/hr 1X ONCE IV ; Start 04/11/19 at 11:00; Stop 04/11/19 at 11:59; Status DC Active Scripts Active Pyridium (Phenazopyridine Hcl) 200 Mg Tablet 200 Mg PO TID Cipro (Ciprofloxacin Hcl) 250 Mg Tablet 1 Tab PO BID Ciprofloxacin Hcl 500 Mg Tablet 500 Mg PO BID Reported Ativan (Lorazepam) 0.5 Mg Tablet 0.5 Mg PO HS Tamsulosin Hcl 0.4 Mg Cap.er.24h 0.4 Mg PO DAILY Multi-Day Vitamins (Multivitamin) 1 Each Tablet 1 Tab PO DAILY Tylenol (Acetaminophen) 325 Mg Tablet 2 Tab PO BID PRN Losartan Potassium 50 Mg Tablet 1 Tab PO DAILY Zantac (Ranitidine Hcl) 150 Mg Tablet 1 Tab PO DAILY Aspirin 81 Mg Tab.chew 1 Tab PO DAILY Vitals/I & O Vital Sign - Last 24 Hours 04/11/19 04/11/19 04/11/19 04/11/19 10:00 10:02 11:00 11:55 Pulse 82 74 Resp 16 14 B/P (MAP) 82/60 (67) 87/67 (74) Pulse Ox 97 96 96 O2 Delivery Ventilator Ventilator Ventilator Mechanical Ventilator 04/11/19 04/11/19 04/11/19 04/11/19 12:00 12:22 13:00 13:45 Temp 97.9 97.9 Pulse 72 69 Resp 16 13 B/P (MAP) 97/62 (74) 96/61 (73) Pulse Ox 96 98 98 97 O2 Delivery Ventilator Ventilator Ventilator Ventilator 04/11/19 04/11/19 04/11/19 04/11/19 14:00 14:05 15:00 15:33 Pulse 72 72 74 Resp 15 17 B/P (MAP) 96/64 (75) 96/64 104/66 (79) Pulse Ox 97 97 98 O2 Delivery Ventilator Ventilator Ventilator 04/11/19 04/11/19 04/11/19 04/11/19 16:00 16:00 17:00 18:00 Temp 97.8 97.8 Pulse 70 73 71 Resp 13 15 15 B/P (MAP) 89/60 (70) 94/62 (73) 97/64 (75) Pulse Ox 99 97 97 O2 Delivery Ventilator Mechanical Ventilator Ventilator Ventilator 04/11/19 04/11/19 04/11/19 04/11/19 18:28 18:41 19:00 20:00 Temp 98.0 98.0 Pulse 72 74 Resp 14 15 15 B/P (MAP) 97/59 (72) 94/62 (73) Pulse Ox 97 97 98 98 O2 Delivery Ventilator Ventilator Ventilator Ventilator 04/11/19 04/11/19 04/11/19 04/11/19 20:00 20:21 20:48 20:50 Pulse 71 B/P (MAP) 94/62 Pulse Ox 97 97 O2 Delivery Mechanical Ventilator Ventilator Ventilator 04/11/19 04/11/19 04/11/19 04/11/19 21:00 22:00 23:00 23:50 Pulse 75 74 72 Resp 15 15 15 B/P (MAP) 98/62 (74) 118/73 (88) Pulse Ox 98 98 98 97 O2 Delivery Ventilator Ventilator Ventilator Ventilator 04/12/19 04/12/19 04/12/19 04/12/19 00:00 00:01 01:00 01:39 Temp 98.2 98.2 Pulse 72 70 Resp 15 15 B/P (MAP) 113/71 (85) 98/68 (78) Pulse Ox 98 100 97 O2 Delivery Mechanical Ventilator Ventilator Ventilator Ventilator 04/12/19 04/12/19 04/12/19 04/12/19 02:00 03:00 03:33 04:00 Temp 98.6 98.6 Pulse 64 65 65 Resp 15 15 15 B/P (MAP) 98/55 (69) 95/64 (74) 99/62 (74) Pulse Ox 100 100 99 98 O2 Delivery Ventilator Ventilator Ventilator Ventilator 04/12/19 04/12/19 04/12/19 04/12/19 04:00 05:00 05:09 06:00 Pulse 72 80 Resp 15 15 B/P (MAP) 107/71 (83) 109/68 (82) Pulse Ox 100 99 100 O2 Delivery Mechanical Ventilator Ventilator Ventilator Ventilator 04/12/19 04/12/19 04/12/19 04/12/19 06:04 07:19 08:12 08:43 Pulse 75 B/P (MAP) 109/71 Pulse Ox 99 99 97 O2 Delivery Ventilator Ventilator Ventilator Intake and Output 04/11/19 04/11/19 04/12/19 15:00 23:00 07:00 Intake Total 1100 ml 2922.69 ml 852 ml Output Total 455 ml 480 ml 375 ml Balance 645 ml 2442.69 ml 477 ml SALOME DEXTER MD Apr 12, 2019 09:28
--- NOTE | 2019-04-12 09:33 | PDOC ---
PROGRESS NOTES Subjective Subjective pt is waking up more today Objective Objective Vital Signs Date Time Temp Pulse Resp B/P (MAP) Pulse Ox O2 Delivery O2 Flow Rate FiO2 04/12/19 08:43 97 Ventilator 04/12/19 08:12 75 109/71 04/12/19 06:00 15 04/12/19 04:00 98.6 98.6 Intake and Output 04/12/19 06:59 Intake Total 4874.69 ml Output Total 1435 ml Balance 3439.69 ml IV Total 2266.69 ml Tube Feeding 2008 ml Other 600 ml Output Urine Total 1385 ml Gastric Drainage Total 50 ml # Bowel Movements 1 Physical Exam Physical Exam orally intubated On Vent and propofol sedation Abdomen: Soft Heart: Regular rate (SR), Normal S1, Normal S2, Other (2/6 systolic murmur to LLS border) Extremities: No cyanosis, No edema General: Other (sedated, intubated) HEENT: Atraumatic, Mucous membr. moist/pink Lungs: Other (intubated with vent, coarse lung sounds) MUSCULOSKELETAL: Osteoarthritic changes both hands Neuro: Other (sedated) Skin: No breakdown, No significant lesion COMMENT otto Diagnosis Problem List Problems Medical Problems: (1) Altered level of consciousness Status: Acute (2) BPH (benign prostatic hyperplasia) Status: Chronic (3) GERD (gastroesophageal reflux disease) Status: Chronic (4) HTN (hypertension) Status: Chronic (5) Hyperglycemia Status: Acute (6) Hypoglycemia Status: Acute Assessment Assessment Problems Medical Problems: (1) Altered level of consciousness Status: Acute (2) BPH (benign prostatic hyperplasia) Status: Chronic (3) GERD (gastroesophageal reflux disease) Status: Chronic (4) HTN (hypertension) Status: Chronic (5) Hyperglycemia Status: Acute (6) Hypoglycemia Status: Acute Assessment/Plan: Hypotension resolved with fluids Pneumonia?Aspiration from seizures HYPOGLYCEMIA causing MINIMAL responsiveness, intubated for airway protection . HYPOTENSION, post intubation, responded to fluid . Seizures? PSVT GERD BPH HTN Plan: hold off on MRI. Fluid bolus given Try weaning trial cxr repeat today iv antibiotics zyvox+levaquin id consult duoneb qid tube feedings. EEG neg for seizures CTA noted no stroke or aneurysm. labs good today Plan Plan of Care Problems Medical Problems: (1) Altered level of consciousness Status: Acute (2) BPH (benign prostatic hyperplasia) Status: Chronic (3) GERD (gastroesophageal reflux disease) Status: Chronic (4) HTN (hypertension) Status: Chronic (5) Hyperglycemia Status: Acute (6) Hypoglycemia Status: Acute Comment Review of Relevant I have reviewed the following items aden (where applicable) has been applied. Labs Laboratory Tests Test 04/11/19 11:35 04/11/19 18:02 04/12/19 00:46 04/12/19 05:11 Glucose (Fingerstick) 121 mg/dL (70-99) 106 mg/dL (70-99) 92 mg/dL (70-99) 81 mg/dL (70-99) Test 04/12/19 05:25 04/12/19 08:50 White Blood Count 8.0 x10^3/uL (4.0-11.0) Red Blood Count 3.71 x10^6/uL (4.30-5.70) Hemoglobin 11.6 g/dL (13.0-17.5) Hematocrit 33.8 % (39.0-53.0) Mean Corpuscular Volume 91 fL (79-100) Mean Corpuscular Hemoglobin 31 pg (25-35) Mean Corpuscular Hemoglobin Concent 34 g/dL (31-37) Red Cell Distribution Width 15.0 % (11.5-14.5) Platelet Count 218 x10^3/uL (140-400) Neutrophils (%) (Auto) 60 % (31-73) Lymphocytes (%) (Auto) 21 % (24-48) Monocytes (%) (Auto) 11 % (0-9) Eosinophils (%) (Auto) 8 % (0-3) Basophils (%) (Auto) 0 % (0-3) Neutrophils # (Auto) 4.8 x10^3/uL (1.8-7.7) Lymphocytes # (Auto) 1.7 x10^3/uL (1.0-4.8) Monocytes # (Auto) 0.9 x10^3/uL (0.0-1.1) Eosinophils # (Auto) 0.6 x10^3/uL (0.0-0.7) Basophils # (Auto) 0.0 x10^3/uL (0.0-0.2) Sodium Level 142 mmol/L (136-145) Potassium Level 3.8 mmol/L (3.5-5.1) Chloride Level 110 mmol/L (98-107) Carbon Dioxide Level 25 mmol/L (21-32) Anion Gap 7 (6-14) Blood Urea Nitrogen 19 mg/dL (8-26) Creatinine 0.7 mg/dL (0.7-1.3) Estimated GFR (Cockcroft-Gault) 110.9 Glucose Level 96 mg/dL (70-99) Calcium Level 7.8 mg/dL (8.5-10.1) O2 Saturation 96 % (92-99) Arterial Blood pH 7.43 (7.35-7.45) Arterial Blood pCO2 at Patient Temp 37 mmHg (35-46) Arterial Blood pO2 at Patient Temp 83 mmHg (65-108) Arterial Blood HCO3 24 mmol/L (21-28) Arterial Blood Base Excess 0 mmol/L (-3-3) FiO2 40 Microbiology 04/10/19 Blood Culture - Preliminary, Resulted NO GROWTH AFTER 1 DAY Medications Current Medications Sodium Chloride 500 ml @ 500 mls/hr 1X ONCE IV Last administered on 04/11/19at 10:34; Start 04/11/19 at 10:30; Stop 04/11/19 at 11:29; Status DC Sodium Chloride 500 ml @ 500 mls/hr 1X ONCE IV ; Start 04/11/19 at 11:00; Stop 04/11/19 at 11:59; Status DC Sodium Chloride 1,000 ml @ 125 mls/hr Q8H IV Last administered on 04/12/19at 04:03; Start 04/11/19 at 10:30 Vitals/I & O Vital Sign - Last 24 Hours 04/11/19 04/11/19 04/11/19 04/11/19 10:00 10:02 11:00 11:55 Pulse 82 74 Resp 16 14 B/P (MAP) 82/60 (67) 87/67 (74) Pulse Ox 97 96 96 O2 Delivery Ventilator Ventilator Ventilator Mechanical Ventilator 04/11/19 04/11/19 04/11/19 04/11/19 12:00 12:22 13:00 13:45 Temp 97.9 97.9 Pulse 72 69 Resp 16 13 B/P (MAP) 97/62 (74) 96/61 (73) Pulse Ox 96 98 98 97 O2 Delivery Ventilator Ventilator Ventilator Ventilator 8/1804/11/19 04/11/19 04/11/19 14:00 14:05 15:00 15:33 Pulse 72 72 74 Resp 15 17 B/P (MAP) 96/64 (75) 96/64 104/66 (79) Pulse Ox 97 97 98 O2 Delivery Ventilator Ventilator Ventilator 04/11/19 04/11/19 04/11/19 04/11/19 16:00 16:00 17:00 18:00 Temp 97.8 97.8 Pulse 70 73 71 Resp 13 15 15 B/P (MAP) 89/60 (70) 94/62 (73) 97/64 (75) Pulse Ox 99 97 97 O2 Delivery Ventilator Mechanical Ventilator Ventilator Ventilator 04/11/19 04/11/19 04/11/19 04/11/19 18:28 18:41 19:00 20:00 Temp 98.0 98.0 Pulse 72 74 Resp 14 15 15 B/P (MAP) 97/59 (72) 94/62 (73) Pulse Ox 97 97 98 98 O2 Delivery Ventilator Ventilator Ventilator Ventilator 04/11/19 04/11/19 04/11/19 04/11/19 20:00 20:21 20:48 20:50 Pulse 71 B/P (MAP) 94/62 Pulse Ox 97 97 O2 Delivery Mechanical Ventilator Ventilator Ventilator 04/11/19 04/11/19 04/11/19 04/11/19 21:00 22:00 23:00 23:50 Pulse 75 74 72 Resp 15 15 15 B/P (MAP) 98/62 (74) 118/73 (88) Pulse Ox 98 98 98 97 O2 Delivery Ventilator Ventilator Ventilator Ventilator 04/12/19 04/12/19 04/12/19 04/12/19 00:00 00:01 01:00 01:39 Temp 98.2 98.2 Pulse 72 70 Resp 15 15 B/P (MAP) 113/71 (85) 98/68 (78) Pulse Ox 98 100 97 O2 Delivery Mechanical Ventilator Ventilator Ventilator Ventilator 04/12/19 04/12/19 04/12/19 04/12/19 02:00 03:00 03:33 04:00 Temp 98.6 98.6 Pulse 64 65 65 Resp 15 15 15 B/P (MAP) 98/55 (69) 95/64 (74) 99/62 (74) Pulse Ox 100 100 99 98 O2 Delivery Ventilator Ventilator Ventilator Ventilator 04/12/19 04/12/19 04/12/19 04/12/19 04:00 05:00 05:09 06:00 Pulse 72 80 Resp 15 15 B/P (MAP) 107/71 (83) 109/68 (82) Pulse Ox 100 99 100 O2 Delivery Mechanical Ventilator Ventilator Ventilator Ventilator 04/12/19 04/12/19 04/12/19 04/12/19 06:04 07:19 08:12 08:43 Pulse 75 B/P (MAP) 109/71 Pulse Ox 99 99 97 O2 Delivery Ventilator Ventilator Ventilator Intake and Output 04/11/19 04/11/19 04/12/19 14:59 22:59 06:59 Intake Total 1100 ml 2922.69 ml 852 ml Output Total 530 ml 480 ml 425 ml Balance 570 ml 2442.69 ml 427 ml ROSALVA GOODWIN MD Apr 12, 2019 09:33
--- NOTE | 2019-04-12 10:40 | PDOC ---
PULMONARY PROGRESS NOTES Subjective on vent, sedated on propofol, mod ett secretion, autistic, didnt tolerate sbt, yesterday, had agitation Vitals Vital Signs Date Time Temp Pulse Resp B/P (MAP) Pulse Ox O2 Delivery O2 Flow Rate FiO2 04/12/19 08:43 97 Ventilator 04/12/19 08:12 75 109/71 04/12/19 06:00 15 04/12/19 04:00 98.6 98.6 Comments ros as mentioned as above discussed w rn other sys otherwise neg sedated on vent HEENT: Other (nc at perrl nose clear orally intubated neck no lad no thyromegaly) Lungs: Other (few rhonchi) Cardiovascular: S1, S2 Abdomen: Soft, Non-tender, Other (no mass) Extremities: Other (EDEMA) Skin: Warm Labs Laboratory Tests Test 04/10/19 11:58 04/10/19 18:09 04/11/19 00:00 04/11/19 04:00 Glucose (Fingerstick) 123 mg/dL (70-99) 140 mg/dL (70-99) 126 mg/dL (70-99) White Blood Count 9.9 x10^3/uL (4.0-11.0) Red Blood Count 3.58 x10^6/uL (4.30-5.70) Hemoglobin 11.1 g/dL (13.0-17.5) Hematocrit 32.5 % (39.0-53.0) Mean Corpuscular Volume 91 fL (79-100) Mean Corpuscular Hemoglobin 31 pg (25-35) Mean Corpuscular Hemoglobin Concent 34 g/dL (31-37) Red Cell Distribution Width 14.8 % (11.5-14.5) Platelet Count 207 x10^3/uL (140-400) Neutrophils (%) (Auto) 74 % (31-73) Lymphocytes (%) (Auto) 11 % (24-48) Monocytes (%) (Auto) 11 % (0-9) Eosinophils (%) (Auto) 4 % (0-3) Basophils (%) (Auto) 0 % (0-3) Neutrophils # (Auto) 7.4 x10^3/uL (1.8-7.7) Lymphocytes # (Auto) 1.1 x10^3/uL (1.0-4.8) Monocytes # (Auto) 1.0 x10^3/uL (0.0-1.1) Eosinophils # (Auto) 0.4 x10^3/uL (0.0-0.7) Basophils # (Auto) 0.0 x10^3/uL (0.0-0.2) Sodium Level 143 mmol/L (136-145) Potassium Level 3.7 mmol/L (3.5-5.1) Chloride Level 111 mmol/L (98-107) Carbon Dioxide Level 24 mmol/L (21-32) Anion Gap 8 (6-14) Blood Urea Nitrogen 18 mg/dL (8-26) Creatinine 0.7 mg/dL (0.7-1.3) Estimated GFR (Cockcroft-Gault) 110.9 Glucose Level 140 mg/dL (70-99) Calcium Level 7.8 mg/dL (8.5-10.1) Test 04/11/19 05:59 04/11/19 08:00 04/11/19 11:35 04/11/19 18:02 Glucose (Fingerstick) 120 mg/dL (70-99) 121 mg/dL (70-99) 106 mg/dL (70-99) O2 Saturation 95 % (92-99) Arterial Blood pH 7.45 (7.35-7.45) Arterial Blood pCO2 at Patient Temp 31 mmHg (35-46) Arterial Blood pO2 at Patient Temp 78 mmHg (65-108) Arterial Blood HCO3 21 mmol/L (21-28) Arterial Blood Base Excess -2 mmol/L (-3-3) FiO2 40 Test 04/12/19 00:46 04/12/19 05:11 04/12/19 05:25 04/12/19 08:50 Glucose (Fingerstick) 92 mg/dL (70-99) 81 mg/dL (70-99) White Blood Count 8.0 x10^3/uL (4.0-11.0) Red Blood Count 3.71 x10^6/uL (4.30-5.70) Hemoglobin 11.6 g/dL (13.0-17.5) Hematocrit 33.8 % (39.0-53.0) Mean Corpuscular Volume 91 fL (79-100) Mean Corpuscular Hemoglobin 31 pg (25-35) Mean Corpuscular Hemoglobin Concent 34 g/dL (31-37) Red Cell Distribution Width 15.0 % (11.5-14.5) Platelet Count 218 x10^3/uL (140-400) Neutrophils (%) (Auto) 60 % (31-73) Lymphocytes (%) (Auto) 21 % (24-48) Monocytes (%) (Auto) 11 % (0-9) Eosinophils (%) (Auto) 8 % (0-3) Basophils (%) (Auto) 0 % (0-3) Neutrophils # (Auto) 4.8 x10^3/uL (1.8-7.7) Lymphocytes # (Auto) 1.7 x10^3/uL (1.0-4.8) Monocytes # (Auto) 0.9 x10^3/uL (0.0-1.1) Eosinophils # (Auto) 0.6 x10^3/uL (0.0-0.7) Basophils # (Auto) 0.0 x10^3/uL (0.0-0.2) Sodium Level 142 mmol/L (136-145) Potassium Level 3.8 mmol/L (3.5-5.1) Chloride Level 110 mmol/L (98-107) Carbon Dioxide Level 25 mmol/L (21-32) Anion Gap 7 (6-14) Blood Urea Nitrogen 19 mg/dL (8-26) Creatinine 0.7 mg/dL (0.7-1.3) Estimated GFR (Cockcroft-Gault) 110.9 Glucose Level 96 mg/dL (70-99) Calcium Level 7.8 mg/dL (8.5-10.1) O2 Saturation 96 % (92-99) Arterial Blood pH 7.43 (7.35-7.45) Arterial Blood pCO2 at Patient Temp 37 mmHg (35-46) Arterial Blood pO2 at Patient Temp 83 mmHg (65-108) Arterial Blood HCO3 24 mmol/L (21-28) Arterial Blood Base Excess 0 mmol/L (-3-3) FiO2 40 Laboratory Tests Test 04/11/19 11:35 04/11/19 18:02 04/12/19 00:46 04/12/19 05:11 Glucose (Fingerstick) 121 mg/dL (70-99) 106 mg/dL (70-99) 92 mg/dL (70-99) 81 mg/dL (70-99) Test 04/12/19 05:25 04/12/19 08:50 White Blood Count 8.0 x10^3/uL (4.0-11.0) Red Blood Count 3.71 x10^6/uL (4.30-5.70) Hemoglobin 11.6 g/dL (13.0-17.5) Hematocrit 33.8 % (39.0-53.0) Mean Corpuscular Volume 91 fL (79-100) Mean Corpuscular Hemoglobin 31 pg (25-35) Mean Corpuscular Hemoglobin Concent 34 g/dL (31-37) Red Cell Distribution Width 15.0 % (11.5-14.5) Platelet Count 218 x10^3/uL (140-400) Neutrophils (%) (Auto) 60 % (31-73) Lymphocytes (%) (Auto) 21 % (24-48) Monocytes (%) (Auto) 11 % (0-9) Eosinophils (%) (Auto) 8 % (0-3) Basophils (%) (Auto) 0 % (0-3) Neutrophils # (Auto) 4.8 x10^3/uL (1.8-7.7) Lymphocytes # (Auto) 1.7 x10^3/uL (1.0-4.8) Monocytes # (Auto) 0.9 x10^3/uL (0.0-1.1) Eosinophils # (Auto) 0.6 x10^3/uL (0.0-0.7) Basophils # (Auto) 0.0 x10^3/uL (0.0-0.2) Sodium Level 142 mmol/L (136-145) Potassium Level 3.8 mmol/L (3.5-5.1) Chloride Level 110 mmol/L (98-107) Carbon Dioxide Level 25 mmol/L (21-32) Anion Gap 7 (6-14) Blood Urea Nitrogen 19 mg/dL (8-26) Creatinine 0.7 mg/dL (0.7-1.3) Estimated GFR (Cockcroft-Gault) 110.9 Glucose Level 96 mg/dL (70-99) Calcium Level 7.8 mg/dL (8.5-10.1) O2 Saturation 96 % (92-99) Arterial Blood pH 7.43 (7.35-7.45) Arterial Blood pCO2 at Patient Temp 37 mmHg (35-46) Arterial Blood pO2 at Patient Temp 83 mmHg (65-108) Arterial Blood HCO3 24 mmol/L (21-28) Arterial Blood Base Excess 0 mmol/L (-3-3) FiO2 40 Medications Active Scripts Medications Dose Route/Sig Max Daily Dose Days Date Category Pyridium (Phenazopyridine Hcl) 200 Mg Tablet 200 Mg PO TID 12/17/16 Rx Cipro (Ciprofloxacin Hcl) 250 Mg Tablet 1 Tab PO BID 12/17/16 Rx Ciprofloxacin Hcl 500 Mg Tablet 500 Mg PO BID 07/13/15 Rx Ativan (Lorazepam) 0.5 Mg Tablet 0.5 Mg PO HS 07/11/15 Reported Tamsulosin Hcl 0.4 Mg Cap.er.24h 0.4 Mg PO DAILY 05/08/15 Reported Multi-Day Vitamins (Multivitamin) 1 Each Tablet 1 Tab PO DAILY 04/17/15 Reported Tylenol (Acetaminophen) 325 Mg Tablet 2 Tab PO BID PRN 02/07/15 Reported Losartan Potassium 50 Mg Tablet 1 Tab PO DAILY 02/07/15 Reported Zantac (Ranitidine Hcl) 150 Mg Tablet 1 Tab PO DAILY 02/07/15 Reported Aspirin 81 Mg Tab.chew 1 Tab PO DAILY 02/07/15 Reported Comments reviewed cxr 04/12 Bibasilar airspace opacities, right pleural effusion. both increased. No pneumothorax. ett ok Impression . IMPRESSION: 1. Wiw-zk-uvmbdgbo arrest. 2. Respiratory failure secondary to above. 3. Hypoglycemia. resolved 4. History of autism. 5. Hypertension. 6. Benign prostatic hypertrophy. 7. METABOLIC ENCE POA 8. SEIZURES 9. abnl cxr, aspiration pneumonitis vs CHF Plan . cont vent support, setting reviewed, decrease sedation, sbt again today reviewed cxr, aspiration pneumonitis vs CHF, on Abx per ID, will try lasix CONTINUE SUPPORT FOR NOW FOLLOW CARD INPUT DVT AND GI PROPH elevate hob will assess off sedation discussed w rn rt LILLI SAHU MD Apr 12, 2019 10:39
[2019-04-12] MEDS ORDERED: FUROSEMIDE 40 MG/4 ML VIAL. IVP ONE (10:45)
[2019-04-12] MEDS ORDERED: IV NORMAL SALINE 500ML BAG 500 ML IV PRN (11:00)
[2019-04-12] MEDS ORDERED: DEXMEDETOMIDINE 400 MCG in IV NORMAL SALINE 100ML 96 ML IV PRN (11:00)
[2019-04-12] MEDS ORDERED: ATROPINE 0.5 MG/5 ML DISP.SYRINGE. IV PRN (11:00)
--- NOTE | 2019-04-12 11:52 | NUR ---
Family member called out to nurse. Pt vomitting up TF. continous coughing and gagging. Sedation placed back on. Oral care done and ETT suctioned with copious amount of yellow tinged sputum.
--- NOTE | 2019-04-12 13:45 | RAD ---
EXAM: Chest, single view. HISTORY: Pneumonia. COMPARISON: 04/10/2019 FINDINGS: A frontal view of the chest obtained. There has been interval increase in suspected moderate right and small left pleural effusions. There is stable diffuse lower lobe predominant interstitial infiltrate. There is nasogastric tube within the stomach. There is an endotracheal tube within the distal trachea. There is a prominent cardiac silhouette, likely due to portable technique. No pneumothorax is seen. IMPRESSION: 1. Increase and suspected moderate right and small left pleural effusions. 2. Stable lower lobe predominant diffuse interstitial infiltrate. Electronically signed by: Lia Knight MD (04/12/2019 1:42 PM) [place] [id number]
--- NOTE | 2019-04-12 16:15 | PDOC2 ---
PALLIATIVE CARE Palliative Care Note Palliative Care Consult requested by Dr. Moran to address plan of care with family Patient unresponsive on Vent. Became agitated when sedative lowered. Medical Assessment per medical record; Hypotension resolved with fluids Pneumonia?Aspiration from seizures HYPOGLYCEMIA causing MINIMAL responsiveness, intubated for airway protection . HYPOTENSION, post intubation, responded to fluid . Seizures? PSVT GERD BPH HTN Mark /sister is DPOA . Attempted to reach but phone disconnected or no longer receiving calls. Per staff Corinna here this weekend and stated she did not want to be involved in decisions for patient. Spoke with Eden --friend and rehabilitation center manager of staff at [facility] ( for special needs residents) States "knows him well" Plan meeting tomorrow at 1330. OTONIEL MICHEL Apr 12, 2019 16:14
--- NOTE | 2019-04-12 16:27 | NUR ---
SS following up with discharge planning. account planner phoned and faxed referral to [facility], ; fax [phone]. Palliative Care consulted. SS will continue to follow for discharge planning.
[2019-04-12] MEDS: LORazepam 0.5 MG TABLET PO SCH (22:06)
[2019-04-12] MEDS: ENOXAPARIN 40 MG/0.4 ML SYRINGE. SQ SCH (22:09)
[2019-04-13] VITALS (23 sets, daily range): BP systolic 85–140; BP diastolic 44–76
[2019-04-13] MEDS: INSULIN LISPRO 300 UNITS/3 ML VIAL. SQ SCH ×4 (06:00→18:00)
[2019-04-13] MEDS: dilTIAZem HCL 30 MG TABLET PO SCH ×3 (06:19→22:00)
[2019-04-13] MEDS: IV NORMAL SALINE 1000ML BAG 1,000 ML IV SCH ×3 (07:38→18:30)
--- NOTE | 2019-04-13 07:45 | PDOC ---
Infectious Disease Note Subjective: Subjective Remains intubated and sedated. on precedex and propofol, off fentanyl remains agitated awaiting weaning trial later today FiO2 40%, PEEP 5 Tube feedings via OGT had some residuals yesterday so was on hold for 8hrs No fevers last 24 hours ROS: ROS unable to obtain Vital Signs: Vital Signs Vital Signs Date Time Temp Pulse Resp B/P (MAP) Pulse Ox O2 Delivery O2 Flow Rate FiO2 04/13/19 07:20 96 Ventilator 04/13/19 06:19 63 108/67 04/13/19 06:00 15 04/13/19 04:00 99.5 99.5 Physical Exam: PHYSICAL EXAM GENERAL: Sedated, orally intubated gentleman, not in any distress. HEENT: Pupils equal. ETT, OGT NECK: Supple LUNGS: Clear. HEART: S1, S2 regular. ABDOMEN: Soft, BS present : Ortega EXTREMITIES: trace edema, no cyanosis. SKIN: warm to touch. No signs of rash NEUROLOGIC: Sedated, moves legs some PIVs Medications: Inpatient Meds: Current Medications Medications (Trade) Dose Ordered Sig/Jason Start Time Stop Time Status Last Admin Dose Admin Acetaminophen (Tylenol) 650 mg PRN BID PRN 04/06/19 20:00 Adenosine (Adenocard) 6 mg 1X ONCE 04/07/19 11:30 04/07/19 11:31 DC 04/07/19 11:24 6 MG Albuterol/ Ipratropium (Duoneb) 3 ml 1X ONCE 04/10/19 11:00 04/10/19 11:12 DC Aspirin (Children'S Aspirin) 81 mg DAILY 04/07/19 09:00 04/12/19 08:12 81 MG Atropine Sulfate (ATROPINE 0.5mg SYRINGE) 0.5 mg PRN Q5MIN PRN 04/12/19 11:00 Dexmedetomidine HCl 400 mcg/ Sodium Chloride 100 ml @ 0 mls/hr CONT PRN 04/12/19 11:00 04/13/19 03:30 3.7 MLS/HR Dextrose 250 ml PRN Q15MIN PRN 04/06/19 20:00 Dextrose (Dextrose 50%-Water Syringe) 12.5 gm PRN Q15MIN PRN 04/06/19 20:00 Diltiazem HCl (Cardizem) 30 mg Q8HRS 04/07/19 12:00 04/13/19 06:19 30 MG Enoxaparin Sodium (Lovenox 40mg Syringe) 40 mg Q24H 04/06/19 21:00 04/12/19 22:09 40 MG Etomidate (Amidate) 20 mg 1X ONCE 04/06/19 17:30 04/06/19 17:31 DC 04/06/19 19:47 20 MG Fentanyl Citrate 30 ml @ 0 mls/hr CONT PRN 04/11/19 07:15 04/12/19 05:09 2.5 MLS/HR Furosemide (Lasix) 40 mg 1X ONCE 04/12/19 10:45 04/12/19 10:46 DC 04/12/19 11:06 40 MG Info (CONTRAST GIVEN -- Rx MONITORING) 1 each PRN DAILY PRN 04/06/19 17:45 04/08/19 17:44 DC Insulin Human Lispro (HumaLOG) 0-7 UNITS Q6HRS 04/07/19 18:00 Iohexol (Omnipaque 350 Mg/ml) 75 ml 1X ONCE 04/06/19 17:45 04/06/19 17:46 DC 04/06/19 17:56 75 ML Levofloxacin/ Dextrose 100 ml @ 100 mls/hr Q24H 04/10/19 11:00 04/12/19 10:29 100 MLS/HR Linezolid/Dextrose 300 ml @ 300 mls/hr Q12HR 04/10/19 11:00 04/12/19 22:08 300 MLS/HR Lorazepam (Ativan) 0.5 mg HS 04/06/19 21:00 04/12/19 22:08 0.5 MG Multi-Ingred Cream/Lotion/Oil/ Oint (Artificial Tears Eye Ointment) 1 valerie PRN Q1HR PRN 04/07/19 11:15 04/11/19 12:11 1 VALERIE Multivitamins (Thera M Plus) 1 tab DAILY 04/07/19 09:00 04/12/19 08:12 1 TAB Naloxone HCl (Narcan) 2 mg 1X ONCE 04/06/19 18:45 04/06/19 18:46 DC 04/06/19 19:47 2 MG Pantoprazole Sodium (PROTONIX VIAL for IV PUSH) 40 mg DAILYAC 04/07/19 07:30 8/19/19 08:12 40 MG Potassium Bicarbonate (Potassium Effervescent Tablet) 20 meq 1X ONCE 04/08/19 14:30 04/08/19 14:31 DC 04/08/19 16:20 20 MEQ Propofol 100 ml @ 1.164 mls/ hr CONT PRN 04/07/19 02:15 04/12/19 22:08 9.311 MLS/HR Sodium Chloride 500 ml @ 500 mls/hr 1X PRN PRN 04/12/19 11:00 Succinylcholine Chloride (Anectine) 100 mg 1X ONCE 04/06/19 17:30 04/06/19 17:31 DC 04/06/19 19:47 100 MG Tamsulosin HCl (Flomax) 0.4 mg DAILY 04/07/19 09:00 04/12/19 08:12 0.4 MG Labs: Lab Laboratory Tests Test 04/12/19 08:50 04/12/19 13:58 04/12/19 17:12 04/13/19 00:10 O2 Saturation 96 % (92-99) Arterial Blood pH 7.43 (7.35-7.45) Arterial Blood pCO2 at Patient Temp 37 mmHg (35-46) Arterial Blood pO2 at Patient Temp 83 mmHg (65-108) Arterial Blood HCO3 24 mmol/L (21-28) Arterial Blood Base Excess 0 mmol/L (-3-3) FiO2 40 Glucose (Fingerstick) 139 mg/dL (70-99) 110 mg/dL (70-99) 127 mg/dL (70-99) Test 04/13/19 06:21 Glucose (Fingerstick) 102 mg/dL (70-99) Objective: Assessment: Nausea, vomiting with suspected aspiration. Low-grade fever. Leukocytosis - better Respiratory failure. Hypoglycemia. Autism. Hypertension. Benign prostatic hypertrophy. Multiple ANTIBIOTIC ALLERGIES: PCN, meropenem, cephalosporins. ? reaction Plan: Plan of Care Continue Zyvox and Levaquin ? allergy to all beta lactams,unable to get details f/u cultures Supportive care D/w nursing Critically ill BROOK RIVAS MD Apr 13, 2019 07:45
[2019-04-13] MEDS: IPRATRPIUM/ALBUTEROL 0.5/2.5MG 3 ML NEBU. NEB SCH ×4 (08:18→20:23)
[2019-04-13 08:32] LABS: BASE EXCESS ABG 0 mmol/L (-3-3); HCO3 ABG 24 mmol/L (21-28); PCO2 ABG 36 mmHg (35-46); PO2 ABG 83 mmHg (65-108); SAT O2 ABG 96 % (92-99)
--- NOTE | 2019-04-13 09:32 | PDOC ---
PROGRESS NOTES Subjective Subjective sedated on vent ,orally intubated Objective Objective Vital Signs Date Time Temp Pulse Resp B/P (MAP) Pulse Ox O2 Delivery O2 Flow Rate FiO2 04/13/19 07:20 96 Ventilator 04/13/19 06:19 63 108/67 04/13/19 06:00 15 04/13/19 04:00 99.5 99.5 Intake and Output 04/13/19 06:59 Intake Total 4668.2 ml Output Total 4075 ml Balance 593.2 ml IV Total 3403.2 ml Tube Feeding 754 ml Other 511 ml Output Urine Total 3925 ml Gastric Drainage Total 150 ml Physical Exam Physical Exam orally intubated On Vent and propofol sedation Abdomen: Soft Heart: Regular rate (SR), Normal S1, Normal S2, Other (2/6 systolic murmur to LLS border) Extremities: No cyanosis, No edema General: Other (sedated, intubated) HEENT: Atraumatic, Mucous membr. moist/pink Lungs: Other (intubated with vent, coarse lung sounds) MUSCULOSKELETAL: Osteoarthritic changes both hands Neuro: Other (sedated) Skin: No breakdown, No significant lesion COMMENT otto Diagnosis Problem List Problems Medical Problems: (1) Altered level of consciousness Status: Acute (2) BPH (benign prostatic hyperplasia) Status: Chronic (3) GERD (gastroesophageal reflux disease) Status: Chronic (4) HTN (hypertension) Status: Chronic (5) Hyperglycemia Status: Acute (6) Hypoglycemia Status: Acute Assessment Assessment Problems Medical Problems: (1) Altered level of consciousness Status: Acute (2) BPH (benign prostatic hyperplasia) Status: Chronic (3) GERD (gastroesophageal reflux disease) Status: Chronic (4) HTN (hypertension) Status: Chronic (5) Hyperglycemia Status: Acute (6) Hypoglycemia Status: Acute Assessment/Plan:Ac resp failure on Vent Hypotension resolved with fluids Pneumonia?Aspiration from seizures HYPOGLYCEMIA causing MINIMAL responsiveness, intubated for airway protection . HYPOTENSION, post intubation, responded to fluid . Seizures? PSVT GERD BPH HTN Plan: vent weaning trials Fluid bolus given cxr gela lung infiltrates iv antibiotics zyvox+levaquin id +pul+neuro consults duoneb qid tube feedings. EEG neg for seizures CTA noted no stroke or aneurysm. labs tomorrow spoke with RN DVT+GI prophylaxis Plan Plan of Care Problems Medical Problems: (1) Altered level of consciousness Status: Acute (2) BPH (benign prostatic hyperplasia) Status: Chronic (3) GERD (gastroesophageal reflux disease) Status: Chronic (4) HTN (hypertension) Status: Chronic (5) Hyperglycemia Status: Acute (6) Hypoglycemia Status: Acute Comment Review of Relevant I have reviewed the following items aden (where applicable) has been applied. Labs Laboratory Tests Test 04/12/19 13:58 04/12/19 17:12 04/13/19 00:10 04/13/19 06:21 Glucose (Fingerstick) 139 mg/dL (70-99) 110 mg/dL (70-99) 127 mg/dL (70-99) 102 mg/dL (70-99) Microbiology 04/10/19 Blood Culture - Preliminary, Resulted NO GROWTH AFTER 2 DAYS Medications Current Medications Atropine Sulfate (ATROPINE 0.5mg SYRINGE) 0.5 mg PRN Q5MIN PRN IV SEE COMMENTS; Start 04/12/19 at 11:00 Dexmedetomidine HCl 400 mcg/ Sodium Chloride 100 ml @ 0 mls/hr CONT PRN IV sedation Last administered on 04/13/19at 03:30; Start 04/12/19 at 11:00 Furosemide (Lasix) 40 mg 1X ONCE IVP Last administered on 04/12/19at 11:06; Start 04/12/19 at 10:45; Stop 04/12/19 at 10:46; Status DC Sodium Chloride 500 ml @ 500 mls/hr 1X PRN PRN IV ANXIETY / AGITATION; Start 04/12/19 at 11:00 Vitals/I & O Vital Sign - Last 24 Hours 04/12/19 04/12/19 04/12/19 04/12/19 09:50 10:00 11:50 12:00 Temp 99.3 99.3 Pulse 74 72 Resp 14 14 B/P (MAP) 105/72 (83) 108/74 (85) Pulse Ox 96 99 96 98 O2 Delivery Ventilator Ventilator Ventilator Ventilator 04/12/19 04/12/19 04/12/19 04/12/19 12:00 13:00 13:40 14:02 Pulse 76 76 Resp 16 B/P (MAP) 112/69 (83) 100/62 Pulse Ox 96 97 O2 Delivery Mechanical Ventilator Ventilator Ventilator 04/12/19 04/12/19 04/12/19 04/12/19 15:00 16:00 16:00 16:06 Temp 99.1 99.1 Pulse 73 73 Resp 17 16 B/P (MAP) 101/60 (74) 98/63 (75) Pulse Ox 96 96 96 O2 Delivery Ventilator Mechanical Ventilator Ventilator Ventilator 04/12/19 04/12/19 04/12/19 04/12/19 17:00 17:30 18:00 19:00 Pulse 68 74 66 Resp 15 17 17 B/P (MAP) 104/64 (77) 99/57 (71) 99/57 (71) Pulse Ox 99 96 96 97 O2 Delivery Ventilator Ventilator Ventilator Ventilator 04/12/19 04/12/19 04/12/19 04/12/19 19:49 20:00 20:00 21:00 Temp 99.2 99.2 Pulse 73 75 Resp 17 17 B/P (MAP) 88/57 (67) 100/57 (71) Pulse Ox 96 99 97 O2 Delivery Ventilator Mechanical Ventilator Ventilator Ventilator 04/12/19 04/12/19 04/12/19 04/12/19 22:00 22:08 23:00 23:09 Pulse 76 76 76 Resp 19 19 B/P (MAP) 106/57 (73) 106/64 106/57 (73) Pulse Ox 97 97 96 O2 Delivery Ventilator Ventilator Ventilator 04/12/19 04/13/19 04/13/19 04/13/19 23:59 00:01 01:00 01:56 Temp 100.2 100.2 Pulse 69 67 Resp 20 16 B/P (MAP) 95/59 (71) 106/44 (64) Pulse Ox 97 98 96 O2 Delivery Mechanical Ventilator Ventilator Ventilator Ventilator 04/13/19 04/13/19 04/13/19 04/13/19 02:00 03:00 04:00 04:00 Temp 99.5 99.5 Pulse 71 71 71 Resp 16 16 16 B/P (MAP) 90/67 (75) 86/52 (63) 87/48 (61) Pulse Ox 98 98 98 O2 Delivery Ventilator Ventilator Mechanical Ventilator Ventilator 04/13/19 04/13/19 04/13/19 04/13/19 05:00 05:14 06:00 06:19 Pulse 71 63 63 Resp 16 15 B/P (MAP) 87/52 (64) 108/67 (81) 108/67 Pulse Ox 98 96 98 O2 Delivery Ventilator Ventilator Ventilator 04/13/19 07:20 Pulse Ox 96 O2 Delivery Ventilator Intake and Output 04/12/19 04/12/19 04/13/19 14:59 22:59 06:59 Intake Total 400 ml 2095.3 ml 2172.9 ml Output Total 1150 ml 2125 ml 800 ml Balance -750 ml -29.7 ml 1372.9 ml ROSALVA GOODWIN MD Apr 13, 2019 09:32
[2019-04-13] MEDS: PANTOPRAZOLE IV PUSH 40 MG VIAL. IVP SCH (09:49)
[2019-04-13] MEDS: MULTIVITAMIN with MINERAL TABLET. PO SCH (09:50)
[2019-04-13] MEDS: TAMSULOSIN 0.4 MG CAP.ER.24H. PO SCH (09:50)
[2019-04-13] MEDS: ASPIRIN CHEWABLE 81 MG TABLET. PO SCH (09:50)
--- NOTE | 2019-04-13 10:19 | PDOC ---
PROGRESS NOTES Assessment Problems Medical Problems: (1) Altered level of consciousness Status: Acute (2) BPH (benign prostatic hyperplasia) Status: Chronic (3) GERD (gastroesophageal reflux disease) Status: Chronic (4) HTN (hypertension) Status: Chronic (5) Hyperglycemia Status: Acute (6) Hypoglycemia Status: Acute Metabolic encephalopathy. Respiratory failure. Seizure or seizure like episode, provoked, EEG on 04/08/19: Encephalopathy. Hypoglycemia, glucose level 20. Hyperglycemia, glucose level 350. Intellectual disability. Plan Continue ICU Treat medical diseases. Ativan 1 mg IV PRN q4h if has further seizure. Holding on adding anticonvulsant Subjective None Objective Vital Signs Date Time Temp Pulse Resp B/P (MAP) Pulse Ox O2 Delivery O2 Flow Rate FiO2 04/13/19 09:39 97 Ventilator 04/13/19 06:19 63 108/67 04/13/19 06:00 15 04/13/19 04:00 99.5 99.5 Intake and Output 04/13/19 07:00 Intake Total 4668.2 ml Output Total 4075 ml Balance 593.2 ml IV Total 3403.2 ml Tube Feeding 754 ml Other 511 ml Output Urine Total 3925 ml Gastric Drainage Total 150 ml PHYSICAL EXAM Eyes closed, opens eyes slightly to voice, sedated on ventilator, PERRL. EOMI. CN: no focal findings. Muscle tone: normal. Muscle strength: moves all extremities DTR: 1+ Plantar reflex: silent Gait: not examined in bed. Sensory exam: no abnormal findings. Cerebellar: not cooperative Review of Relevant I have reviewed the following items aden (where applicable) has been applied. Labs Laboratory Tests Test 04/11/19 11:35 04/11/19 18:02 04/12/19 00:46 04/12/19 05:11 Glucose (Fingerstick) 121 mg/dL (70-99) 106 mg/dL (70-99) 92 mg/dL (70-99) 81 mg/dL (70-99) Test 04/12/19 05:25 04/12/19 08:50 04/12/19 13:58 04/12/19 17:12 White Blood Count 8.0 x10^3/uL (4.0-11.0) Red Blood Count 3.71 x10^6/uL (4.30-5.70) Hemoglobin 11.6 g/dL (13.0-17.5) Hematocrit 33.8 % (39.0-53.0) Mean Corpuscular Volume 91 fL (79-100) Mean Corpuscular Hemoglobin 31 pg (25-35) Mean Corpuscular Hemoglobin Concent 34 g/dL (31-37) Red Cell Distribution Width 15.0 % (11.5-14.5) Platelet Count 218 x10^3/uL (140-400) Neutrophils (%) (Auto) 60 % (31-73) Lymphocytes (%) (Auto) 21 % (24-48) Monocytes (%) (Auto) 11 % (0-9) Eosinophils (%) (Auto) 8 % (0-3) Basophils (%) (Auto) 0 % (0-3) Neutrophils # (Auto) 4.8 x10^3/uL (1.8-7.7) Lymphocytes # (Auto) 1.7 x10^3/uL (1.0-4.8) Monocytes # (Auto) 0.9 x10^3/uL (0.0-1.1) Eosinophils # (Auto) 0.6 x10^3/uL (0.0-0.7) Basophils # (Auto) 0.0 x10^3/uL (0.0-0.2) Sodium Level 142 mmol/L (136-145) Potassium Level 3.8 mmol/L (3.5-5.1) Chloride Level 110 mmol/L (98-107) Carbon Dioxide Level 25 mmol/L (21-32) Anion Gap 7 (6-14) Blood Urea Nitrogen 19 mg/dL (8-26) Creatinine 0.7 mg/dL (0.7-1.3) Estimated GFR (Cockcroft-Gault) 110.9 Glucose Level 96 mg/dL (70-99) Calcium Level 7.8 mg/dL (8.5-10.1) O2 Saturation 96 % (92-99) Arterial Blood pH 7.43 (7.35-7.45) Arterial Blood pCO2 at Patient Temp 37 mmHg (35-46) Arterial Blood pO2 at Patient Temp 83 mmHg (65-108) Arterial Blood HCO3 24 mmol/L (21-28) Arterial Blood Base Excess 0 mmol/L (-3-3) FiO2 40 Glucose (Fingerstick) 139 mg/dL (70-99) 110 mg/dL (70-99) Test 04/13/19 00:10 04/13/19 06:21 Glucose (Fingerstick) 127 mg/dL (70-99) 102 mg/dL (70-99) Laboratory Tests Test 04/12/19 13:58 04/12/19 17:12 04/13/19 00:10 04/13/19 06:21 Glucose (Fingerstick) 139 mg/dL (70-99) 110 mg/dL (70-99) 127 mg/dL (70-99) 102 mg/dL (70-99) Microbiology 04/10/19 Blood Culture - Preliminary, Resulted NO GROWTH AFTER 2 DAYS Medications Current Medications Etomidate (Amidate) 20 mg 1X ONCE IV Last administered on 04/06/19 19:47; Start 04/06/19 at 17:30; Stop 04/06/19 at 17:31; Status DC Succinylcholine Chloride (Anectine) 100 mg 1X ONCE IV Last administered on 04/06/19 19:47; Start 04/06/19 at 17:30; Stop 04/06/19 at 17:31; Status DC Propofol 50 ml @ As Directed STK-MED ONCE IV ; Start 04/06/19 at 17:27; Stop 04/06/19 at 17:28; Status DC Iohexol (Omnipaque 350 Mg/ml) 75 ml 1X ONCE IV Last administered on 04/06/19at 17:56; Start 04/06/19 at 17:45; Stop 04/06/19 at 17:46; Status DC Info (CONTRAST GIVEN -- Rx MONITORING) 1 each PRN DAILY PRN MC SEE COMMENTS; Start 04/06/19 at 17:45; Stop 04/08/19 at 17:44; Status DC Sodium Chloride 1,000 ml @ 1,000 mls/hr 1X ONCE IV Last administered on 04/06/19at 19:47; Start 04/06/19 at 18:00; Stop 04/06/19 at 18:59; Status DC Propofol 50 ml @ 1.191 mls/ hr 1X ONCE IV Last administered on 04/06/19at 19:47; Start 04/06/19 at 18:30; Stop 04/08/19 at 07:31; Status DC Naloxone HCl (Narcan) 2 mg STK-MED ONCE .ROUTE ; Start 04/06/19 at 18:38; Stop 04/06/19 at 18:38; Status DC Naloxone HCl (Narcan) 2 mg 1X ONCE IV Last administered on 04/06/19at 19:47; Start 04/06/19 at 18:45; Stop 04/06/19 at 18:46; Status DC Sodium Chloride 1,000 ml @ 125 mls/hr Q8H IV Last administered on 04/07/19at 08:28; Start 04/06/19 at 19:00; Stop 04/07/19 at 17:17; Status DC Pantoprazole Sodium (PROTONIX VIAL for IV PUSH) 40 mg DAILYAC IVP Last administered on 04/13/19at 09:50; Start 04/07/19 at 07:30 Enoxaparin Sodium (Lovenox 40mg Syringe) 40 mg Q24H SQ Last administered on 04/12/19at 22:09; Start 04/06/19 at 21:00 Acetaminophen (Tylenol) 650 mg PRN BID PRN PO PAIN; Start 04/06/19 at 20:00 Aspirin (Children'S Aspirin) 81 mg DAILY PO Last administered on 04/13/19at 09:50; Start 04/07/19 at 09:00 Lorazepam (Ativan) 0.5 mg HS PO Last administered on 04/12/19at 22:08; Start 04/06/19 at 21:00 Tamsulosin HCl (Flomax) 0.4 mg DAILY PO Last administered on 04/13/19at 09:50; Start 04/07/19 at 09:00 Multivitamins (Thera M Plus) 1 tab DAILY PO Last administered on 04/13/19at 09:50; Start 04/07/19 at 09:00 Insulin Human Lispro (HumaLOG) 0-7 UNITS TIDWMEALS SQ ; Start 04/07/19 at 08:00; Stop 04/07/19 at 15:12; Status DC Dextrose (Dextrose 50%-Water Syringe) 12.5 gm PRN Q15MIN PRN IV SEE COMMENTS; Start 04/06/19 at 20:00 Dextrose 250 ml PRN Q15MIN PRN IV SEE COMMENTS; Start 04/06/19 at 20:00 Propofol 100 ml @ As Directed STK-MED ONCE IV ; Start 04/07/19 at 01:11; Stop 04/07/19 at 01:11; Status DC Propofol 100 ml @ 1.164 mls/ hr CONT PRN IV SEDATION Last administered on 04/12/19at 22:08; Start 04/07/19 at 02:15 Multi-Ingred Cream/Lotion/Oil/ Oint (Artificial Tears Eye Ointment) 1 valerie PRN Q1HR PRN OU DRY EYE Last administered on 04/11/19at 12:11; Start 04/07/19 at 11:15 Adenosine (Adenocard) 6 mg STK-MED ONCE IV ; Start 04/07/19 at 11:20; Stop 04/07/19 at 11:21; Status DC Adenosine (Adenocard) 6 mg 1X ONCE IV Last administered on 04/07/19at 11:24; Start 04/07/19 at 11:30; Stop 04/07/19 at 11:31; Status DC Diltiazem HCl (Cardizem) 30 mg Q8HRS PO Last administered on 04/13/19at 06:19; Start 04/07/19 at 12:00 Insulin Human Lispro (HumaLOG) 0-7 UNITS Q6HRS SQ ; Start 04/07/19 at 18:00 Sodium Chloride 1,000 ml @ 100 mls/hr Q10H IV Last administered on 04/11/19at 01:23; Start 04/07/19 at 17:15; Stop 04/11/19 at 10:18; Status DC Potassium Bicarbonate (Potassium Effervescent Tablet) 20 meq 1X ONCE PEG Last administered on 04/08/19at 16:20; Start 04/08/19 at 14:30; Stop 04/08/19 at 14:31; Status DC Linezolid/Dextrose 300 ml @ 300 mls/hr Q12HR IV Last administered on 04/13/19at 09:50; Start 04/10/19 at 11:00 Levofloxacin/ Dextrose 100 ml @ 100 mls/hr Q24H IV Last administered on 04/12/19at 10:29; Start 04/10/19 at 11:00 Albuterol/ Ipratropium (Duoneb) 3 ml RTQID NEB Last administered on 04/13/19at 08:18; Start 04/10/19 at 12:00 Albuterol/ Ipratropium (Duoneb) 3 ml 1X ONCE NEB ; Start 04/10/19 at 11:00; Stop 04/10/19 at 11:12; Status DC Fentanyl Citrate 30 ml @ 0 mls/hr CONT PRN IV SEE PROTOCOL Last administered on 04/12/19at 05:09; Start 04/11/19 at 07:15 Sodium Chloride 1,000 ml @ 125 mls/hr Q8H IV Last administered on 04/13/19at 07:38; Start 04/11/19 at 10:30 Sodium Chloride 500 ml @ 500 mls/hr 1X ONCE IV Last administered on 04/11/19at 10:34; Start 04/11/19 at 10:30; Stop 04/11/19 at 11:29; Status DC Sodium Chloride 500 ml @ 500 mls/hr 1X ONCE IV ; Start 04/11/19 at 11:00; Stop 04/11/19 at 11:59; Status DC Furosemide (Lasix) 40 mg 1X ONCE IVP Last administered on 04/12/19at 11:06; Start 04/12/19 at 10:45; Stop 04/12/19 at 10:46; Status DC Dexmedetomidine HCl 400 mcg/ Sodium Chloride 100 ml @ 0 mls/hr CONT PRN IV sedation Last administered on 04/13/19at 03:30; Start 04/12/19 at 11:00 Sodium Chloride 500 ml @ 500 mls/hr 1X PRN PRN IV ANXIETY / AGITATION; Start 04/12/19 at 11:00 Atropine Sulfate (ATROPINE 0.5mg SYRINGE) 0.5 mg PRN Q5MIN PRN IV SEE COMMENTS; Start 04/12/19 at 11:00 Fentanyl Citrate (Fentanyl 600 Mcg/30 ml NOVELTIES SALES REPRESENTATIVE) 600 mcg STK-MED ONCE IV ; Start 04/11/19 at 08:03; Stop 04/13/19 at 09:29; Status DC Active Scripts Active Pyridium (Phenazopyridine Hcl) 200 Mg Tablet 200 Mg PO TID Cipro (Ciprofloxacin Hcl) 250 Mg Tablet 1 Tab PO BID Ciprofloxacin Hcl 500 Mg Tablet 500 Mg PO BID Reported Ativan (Lorazepam) 0.5 Mg Tablet 0.5 Mg PO HS Tamsulosin Hcl 0.4 Mg Cap.er.24h 0.4 Mg PO DAILY Multi-Day Vitamins (Multivitamin) 1 Each Tablet 1 Tab PO DAILY Tylenol (Acetaminophen) 325 Mg Tablet 2 Tab PO BID PRN Losartan Potassium 50 Mg Tablet 1 Tab PO DAILY Zantac (Ranitidine Hcl) 150 Mg Tablet 1 Tab PO DAILY Aspirin 81 Mg Tab.chew 1 Tab PO DAILY Vitals/I & O Vital Sign - Last 24 Hours 04/12/19 04/12/19 04/12/19 04/12/19 11:50 12:00 12:00 13:00 Temp 99.3 99.3 Pulse 72 76 Resp 14 16 B/P (MAP) 108/74 (85) 112/69 (83) Pulse Ox 96 98 96 O2 Delivery Ventilator Ventilator Mechanical Ventilator Ventilator 04/12/19 04/12/19 04/12/19 04/12/19 13:40 14:02 15:00 16:00 Pulse 76 73 Resp 17 B/P (MAP) 100/62 101/60 (74) Pulse Ox 97 96 O2 Delivery Ventilator Ventilator Mechanical Ventilator 04/12/19 04/12/19 04/12/19 04/12/19 16:00 16:06 17:00 17:30 Temp 99.1 99.1 Pulse 73 68 Resp 16 15 B/P (MAP) 98/63 (75) 104/64 (77) Pulse Ox 96 96 99 96 O2 Delivery Ventilator Ventilator Ventilator Ventilator 04/12/19 04/12/19 04/12/19 04/12/19 18:00 19:00 19:49 20:00 Pulse 74 66 Resp 17 17 B/P (MAP) 99/57 (71) 99/57 (71) Pulse Ox 96 97 96 O2 Delivery Ventilator Ventilator Ventilator Mechanical Ventilator 04/12/19 04/12/19 04/12/19 04/12/19 20:00 21:00 22:00 22:08 Temp 99.2 99.2 Pulse 73 75 76 76 Resp 17 17 19 B/P (MAP) 88/57 (67) 100/57 (71) 106/57 (73) 106/64 Pulse Ox 99 97 97 O2 Delivery Ventilator Ventilator Ventilator 04/12/19 04/12/19 04/12/19 04/13/19 23:00 23:09 23:59 00:01 Temp 100.2 100.2 Pulse 76 69 Resp 19 20 B/P (MAP) 106/57 (73) 95/59 (71) Pulse Ox 97 96 97 O2 Delivery Ventilator Ventilator Mechanical Ventilator Ventilator 04/13/19 04/13/19 04/13/19 04/13/19 01:00 01:56 02:00 03:00 Pulse 67 71 71 Resp 16 16 16 B/P (MAP) 106/44 (64) 90/67 (75) 86/52 (63) Pulse Ox 98 96 98 98 O2 Delivery Ventilator Ventilator Ventilator Ventilator 04/13/19 04/13/19 04/13/19 04/13/19 04:00 04:00 05:00 05:14 Temp 99.5 99.5 Pulse 71 71 Resp 16 16 B/P (MAP) 87/48 (61) 87/52 (64) Pulse Ox 98 98 96 O2 Delivery Mechanical Ventilator Ventilator Ventilator Ventilator 04/13/19 04/13/19 04/13/19 04/13/19 06:00 06:19 07:20 09:39 Pulse 63 63 Resp 15 B/P (MAP) 108/67 (81) 108/67 Pulse Ox 98 96 97 O2 Delivery Ventilator Ventilator Ventilator Intake and Output 04/12/19 04/12/19 04/13/19 15:00 23:00 07:00 Intake Total 400 ml 2095.3 ml 2172.9 ml Output Total 1500 ml 1775 ml 800 ml Balance -1100 ml 320.3 ml 1372.9 ml SALOME DEXTER MD Apr 13, 2019 10:19
--- NOTE | 2019-04-13 10:31 | RAD ---
Study: PORTABLE CHEST 1V Indication: Possible aspiration. Comparison: 04/12/2019 Findings: Enteric tube tip and sidehole are below the diaphragm. Endotracheal tube tip terminates just below the level of the clavicles. The cardiomediastinal silhouette is again noted to be prominent in size. Low lung volumes bilaterally. Bilateral pleural effusions and hazy opacification of the aerated lungs. The degree of hazy opacification involving the right lung is less pronounced relative to the prior. Impression: 1. Redemonstrated prominent bilateral pleural effusions and hazy opacification of both lungs. There has been slightly improved aeration of the right lung which could be related to technique. 2. Unchanged prominence of the cardiomediastinal silhouette. 3. Support device placement as above. Electronically signed by: YANCI DEL CASTILLO MD (04/13/2019 10:27 AM) [id number]
--- NOTE | 2019-04-13 11:06 | PDOC ---
PULMONARY PROGRESS NOTES Subjective on vent, sedated on propofol, mod ett secretion, autistic, didnt tolerate off sedation yesterday, had agitation, on Precidex Vitals Vital Signs Date Time Temp Pulse Resp B/P (MAP) Pulse Ox O2 Delivery O2 Flow Rate FiO2 04/13/19 09:39 97 Ventilator 04/13/19 06:19 63 108/67 04/13/19 06:00 15 04/13/19 04:00 99.5 99.5 Comments ros as mentioned as above discussed w rn other sys otherwise neg sedated on vent HEENT: Other (nc at perrl nose clear orally intubated neck no lad no thyromegaly) Lungs: Other (few rhonchi) Cardiovascular: S1, S2 Abdomen: Soft, Non-tender, Other (no mass) Extremities: Other (EDEMA) Skin: Warm Labs Laboratory Tests Test 04/11/19 11:35 04/11/19 18:02 04/12/19 00:46 04/12/19 05:11 Glucose (Fingerstick) 121 mg/dL (70-99) 106 mg/dL (70-99) 92 mg/dL (70-99) 81 mg/dL (70-99) Test 04/12/19 05:25 04/12/19 08:50 04/12/19 13:58 04/12/19 17:12 White Blood Count 8.0 x10^3/uL (4.0-11.0) Red Blood Count 3.71 x10^6/uL (4.30-5.70) Hemoglobin 11.6 g/dL (13.0-17.5) Hematocrit 33.8 % (39.0-53.0) Mean Corpuscular Volume 91 fL (79-100) Mean Corpuscular Hemoglobin 31 pg (25-35) Mean Corpuscular Hemoglobin Concent 34 g/dL (31-37) Red Cell Distribution Width 15.0 % (11.5-14.5) Platelet Count 218 x10^3/uL (140-400) Neutrophils (%) (Auto) 60 % (31-73) Lymphocytes (%) (Auto) 21 % (24-48) Monocytes (%) (Auto) 11 % (0-9) Eosinophils (%) (Auto) 8 % (0-3) Basophils (%) (Auto) 0 % (0-3) Neutrophils # (Auto) 4.8 x10^3/uL (1.8-7.7) Lymphocytes # (Auto) 1.7 x10^3/uL (1.0-4.8) Monocytes # (Auto) 0.9 x10^3/uL (0.0-1.1) Eosinophils # (Auto) 0.6 x10^3/uL (0.0-0.7) Basophils # (Auto) 0.0 x10^3/uL (0.0-0.2) Sodium Level 142 mmol/L (136-145) Potassium Level 3.8 mmol/L (3.5-5.1) Chloride Level 110 mmol/L (98-107) Carbon Dioxide Level 25 mmol/L (21-32) Anion Gap 7 (6-14) Blood Urea Nitrogen 19 mg/dL (8-26) Creatinine 0.7 mg/dL (0.7-1.3) Estimated GFR (Cockcroft-Gault) 110.9 Glucose Level 96 mg/dL (70-99) Calcium Level 7.8 mg/dL (8.5-10.1) O2 Saturation 96 % (92-99) Arterial Blood pH 7.43 (7.35-7.45) Arterial Blood pCO2 at Patient Temp 37 mmHg (35-46) Arterial Blood pO2 at Patient Temp 83 mmHg (65-108) Arterial Blood HCO3 24 mmol/L (21-28) Arterial Blood Base Excess 0 mmol/L (-3-3) FiO2 40 Glucose (Fingerstick) 139 mg/dL (70-99) 110 mg/dL (70-99) Test 04/13/19 00:10 04/13/19 06:21 Glucose (Fingerstick) 127 mg/dL (70-99) 102 mg/dL (70-99) Laboratory Tests Test 04/12/19 13:58 04/12/19 17:12 04/13/19 00:10 04/13/19 06:21 Glucose (Fingerstick) 139 mg/dL (70-99) 110 mg/dL (70-99) 127 mg/dL (70-99) 102 mg/dL (70-99) Medications Active Scripts Medications Dose Route/Sig Max Daily Dose Days Date Category Pyridium (Phenazopyridine Hcl) 200 Mg Tablet 200 Mg PO TID 12/17/16 Rx Cipro (Ciprofloxacin Hcl) 250 Mg Tablet 1 Tab PO BID 12/17/16 Rx Ciprofloxacin Hcl 500 Mg Tablet 500 Mg PO BID 07/13/15 Rx Ativan (Lorazepam) 0.5 Mg Tablet 0.5 Mg PO HS 07/11/15 Reported Tamsulosin Hcl 0.4 Mg Cap.er.24h 0.4 Mg PO DAILY 05/08/15 Reported Multi-Day Vitamins (Multivitamin) 1 Each Tablet 1 Tab PO DAILY 04/17/15 Reported Tylenol (Acetaminophen) 325 Mg Tablet 2 Tab PO BID PRN 02/07/15 Reported Losartan Potassium 50 Mg Tablet 1 Tab PO DAILY 02/07/15 Reported Zantac (Ranitidine Hcl) 150 Mg Tablet 1 Tab PO DAILY 02/07/15 Reported Aspirin 81 Mg Tab.chew 1 Tab PO DAILY 02/07/15 Reported Comments reviewed cxr 04/13 improved CHF,right pleural effusion. still present. R>L. No pneumothorax. ett ok Impression . 1. [id number] arrest. 2. Respiratory failure secondary to above. 3. Hypoglycemia. resolved 4. History of autism. 5. Hypertension. 6. Benign prostatic hypertrophy. 7. METABOLIC ENCE POA 8. SEIZURES 9. abnl cxr, aspiration pneumonitis vs CHF, IMPROVED AERATION POST DIURESIS Plan . cont vent support, setting reviewed, decrease sedation, sbt again today once awake leave him on Precidex reviewed cxr, CHF better, still has right effusion, on Abx per ID, will try extra lasix today CONTINUE SUPPORT FOR NOW FOLLOW CARD INPUT DVT AND GI PROPH elevate hob discussed w rn rt LILLI SAHU MD Apr 13, 2019 11:06
[2019-04-13] MEDS ORDERED: FUROSEMIDE 40 MG/4 ML VIAL. IVP ONE (11:30)
[2019-04-13 13:00] LABS: BASE EXCESS ABG 0 mmol/L (-3-3); HCO3 ABG 23 mmol/L (21-28); PCO2 ABG 33 mmHg (35-46); PO2 ABG 80 mmHg (65-108); SAT O2 ABG 96 % (92-99)
[2019-04-13 13:23] LABS: FIO2 ABG 40
[2019-04-13 13:36] LABS: FIO2 ABG 40
--- NOTE | 2019-04-13 15:16 | PDOC2 ---
PALLIATIVE CARE Palliative Care Note Palliative Care Patient remained on Vent. this am. Now extubated. Spoke with Katie/patient's niece and daughter of DPELVIN Flores; Patient's sister Divina. Attempted to include niece/Kavitha--daughter of Alex (deaf and does not communicate on phone) but was unable to reach her. Per Katie patient's DPOA Corinna does not want to participate in decisions and is confused at times. Katie states patient does have AD. She will be able to fax it to [facility] tomorrow am. Reviewed medical information with Katie and Divina. Patient has been extubated since this conversation. They would want re- intubation if needed however understand that his AD needs to be followed. Risks and benefits of resuscitation discussed. Also discussed further care including tracheostomy if patient were to be re-intubated and remain on Vent for longer period of time. They acknowledge understanding and Katie will attempt to have more conversation with her mother and family members. Per family, patient is able to be mobile at the facility, watches TV and eating well. Discussed need for PT/OT and possible need for therapy/strengthening following hospitalization. Plan: Continue Full Code. Continue full treatment plan. AD to be faxed by Katie/patient's niece tomorrow. Family Contact; Corinna [phone]--DPOA --does not want to participate in decisions and is confused at times per daughter Katie. Katie/niece daughter of DPOA ; [phone] Divina sister of patient; [phone] Alex-brother who is deaf and can not participate in conversation; Kavitha is his daughter [phone] [facility] Center Contact; Eden, OTONIEL MICHEL Apr 13, 2019 15:16
--- NOTE | 2019-04-13 19:42 | NUR ---
AM abgs good. Dr Bañuelos in w orders for trial. Propofol titrated down /off. Fent remains off past 24H. Precidex 0.2 on. Vent changes made w good tolerance on patients part/precidex DC'd extubated 1345 (20 min after med of-patient alert,follows command). O2 3l initially titrated to 2l late aftenoon. Maintains sat 97-98 at that flow. LEONARDO ,doesn't follow commands purposely. Voice weak but "firmer 3 H after extubation. Hearing aide remains out . Glasses on. Likes sports/news. Appropriate channel made available. Harsh cough w decrease production as afternoon wears on. Cont POC
[2019-04-13] MEDS: LORazepam 0.5 MG TABLET PO SCH (21:00)
[2019-04-13] MEDS: ENOXAPARIN 40 MG/0.4 ML SYRINGE. SQ SCH (22:57)
[2019-04-14] VITALS (24 sets, daily range): BP systolic 91–129; BP diastolic 60–86
[2019-04-14] MEDS: IV NORMAL SALINE 1000ML BAG 1,000 ML IV SCH (03:07)
[2019-04-14] MEDS: METOPROLOL TARTRATE 5 MG/5 ML VIAL. IVP SCH ×4 (03:15→18:14)
[2019-04-14 04:57] LABS: BASO % 0 % (0-3); EOS # 0.2 x10^3/uL (0.0-0.7); EOS % 2 % (0-3); HEMATOCRIT 31.7 % (39.0-53.0); HEMOGLOBIN 10.9 g/dL (13.0-17.5); LYMPH # 1.5 x10^3/uL (1.0-4.8); LYMPH % 15 % (24-48); MEAN CORPUSCULAR HEMOGLOBIN 31 pg (25-35); MEAN CORPUSCULAR HGB CONC 34 g/dL (31-37); MEAN CORPUSCULAR VOLUME 90 fL (79-100); MONO # 0.9 x10^3/uL (0.0-1.1); MONO % 9 % (0-9); NEUT # 7.1 x10^3/uL (1.8-7.7); NEUT % 73 % (31-73); PLATELET COUNT 255 x10^3/uL (140-400); RED BLOOD COUNT 3.51 x10^6/uL (4.30-5.70); RED CELL DISTRIBUTION WIDTH 14.7 % (11.5-14.5); WHITE BLOOD COUNT 9.7 x10^3/uL (4.0-11.0)
[2019-04-14 05:20] LABS: CREATININE 0.7 mg/dL (0.7-1.3); GFR 110.9; POTASSIUM 3.4 mmol/L (3.5-5.1)
[2019-04-14] MEDS: INSULIN LISPRO 300 UNITS/3 ML VIAL. SQ SCH ×4 (06:00→18:00)
[2019-04-14] MEDS: dilTIAZem HCL 30 MG TABLET PO SCH ×3 (06:00→22:00)
--- NOTE | 2019-04-14 07:50 | PDOC ---
Infectious Disease Note Subjective: Subjective pt extubated does not verbalize comfortable d/w rn no f/c/n/v ROS: ROS unable to obtain Vital Signs: Vital Signs Vital Signs Date Time Temp Pulse Resp B/P (MAP) Pulse Ox O2 Delivery O2 Flow Rate FiO2 04/14/19 06:00 79 24 103/67 (79) 97 Nasal Cannula 2.0 04/14/19 04:00 99.7 99.7 Physical Exam: PHYSICAL EXAM GENERAL: alert awake, gentleman, not in any distress. HEENT: Pupils equal. no thrush NECK: Supple LUNGS: Clear. HEART: S1, S2 ABDOMEN: Soft, BS present : Ortega EXTREMITIES: trace edema, no cyanosis. SKIN: warm to touch. No signs of rash NEUROLOGIC: Sedated, moves legs some PIVs Medications: Inpatient Meds: Current Medications Medications (Trade) Dose Ordered Sig/Jason Start Time Stop Time Status Last Admin Dose Admin Acetaminophen (Tylenol) 650 mg PRN BID PRN 04/06/19 20:00 Adenosine (Adenocard) 6 mg 1X ONCE 04/07/19 11:30 04/07/19 11:31 DC 04/07/19 11:24 6 MG Albuterol/ Ipratropium (Duoneb) 3 ml 1X ONCE 04/10/19 11:00 04/10/19 11:12 DC Aspirin (Children'S Aspirin) 81 mg DAILY 04/07/19 09:00 04/13/19 09:50 81 MG Atropine Sulfate (ATROPINE 0.5mg SYRINGE) 0.5 mg PRN Q5MIN PRN 04/12/19 11:00 Dexmedetomidine HCl 400 mcg/ Sodium Chloride 100 ml @ 0 mls/hr CONT PRN 04/12/19 11:00 04/13/19 03:30 3.7 MLS/HR Dextrose 250 ml PRN Q15MIN PRN 04/06/19 20:00 Dextrose (Dextrose 50%-Water Syringe) 12.5 gm PRN Q15MIN PRN 04/06/19 20:00 Diltiazem HCl (Cardizem) 30 mg Q8HRS 04/07/19 12:00 04/13/19 06:19 30 MG Enoxaparin Sodium (Lovenox 40mg Syringe) 40 mg Q24H 04/06/19 21:00 04/13/19 22:57 40 MG Etomidate (Amidate) 20 mg 1X ONCE 04/06/19 17:30 04/06/19 17:31 DC 04/06/19 19:47 20 MG Fentanyl Citrate (Fentanyl 600 Mcg/30 ml PROTOZOOLOGY TEACHER) 600 mcg STK-MED ONCE 04/11/19 08:03 04/13/19 09:29 DC Furosemide (Lasix) 40 mg 1X ONCE 04/13/19 11:30 04/13/19 11:31 DC 04/13/19 19:41 40 MG Info (CONTRAST GIVEN -- Rx MONITORING) 1 each PRN DAILY PRN 04/06/19 17:45 04/08/19 17:44 DC Insulin Human Lispro (HumaLOG) 0-7 UNITS Q6HRS 04/07/19 18:00 Iohexol (Omnipaque 350 Mg/ml) 75 ml 1X ONCE 04/06/19 17:45 04/06/19 17:46 DC 04/06/19 17:56 75 ML Levofloxacin/ Dextrose 100 ml @ 100 mls/hr Q24H 04/10/19 11:00 04/13/19 11:45 100 MLS/HR Linezolid/Dextrose 300 ml @ 300 mls/hr Q12HR 04/10/19 11:00 04/13/19 22:57 300 MLS/HR Lorazepam (Ativan) 0.5 mg HS 04/06/19 21:00 04/12/19 22:08 0.5 MG Metoprolol Tartrate (Lopressor Vial) 5 mg Q6HRS 04/14/19 00:00 04/14/19 03:15 5 MG Multi-Ingred Cream/Lotion/Oil/ Oint (Artificial Tears Eye Ointment) 1 valerie PRN Q1HR PRN 04/07/19 11:15 04/11/19 12:11 1 VALERIE Multivitamins (Thera M Plus) 1 tab DAILY 04/07/19 09:00 04/13/19 09:50 1 TAB Naloxone HCl (Narcan) 2 mg 1X ONCE 04/06/19 18:45 04/06/19 18:46 DC 04/06/19 19:47 2 MG Pantoprazole Sodium (PROTONIX VIAL for IV PUSH) 40 mg DAILYAC 04/07/19 07:30 04/13/19 09:50 40 MG Potassium Bicarbonate (Potassium Effervescent Tablet) 20 meq 1X ONCE 04/08/19 14:30 04/08/19 14:31 DC 04/08/19 16:20 20 MEQ Propofol 100 ml @ 1.164 mls/ hr CONT PRN 04/07/19 02:15 04/12/19 22:08 9.311 MLS/HR Sodium Chloride 500 ml @ 500 mls/hr 1X PRN PRN 04/12/19 11:00 Succinylcholine Chloride (Anectine) 100 mg 1X ONCE 04/06/19 17:30 04/06/19 17:31 DC 04/06/19 19:47 100 MG Tamsulosin HCl (Flomax) 0.4 mg DAILY 04/07/19 09:00 04/13/19 09:50 0.4 MG Labs: Lab Laboratory Tests Test 04/13/19 08:15 04/13/19 12:55 04/14/19 04:35 O2 Saturation 96 % (92-99) 96 % (92-99) Arterial Blood pH 7.44 (7.35-7.45) 7.46 (7.35-7.45) Arterial Blood pCO2 at Patient Temp 36 mmHg (35-46) 33 mmHg (35-46) Arterial Blood pO2 at Patient Temp 83 mmHg (65-108) 80 mmHg (65-108) Arterial Blood HCO3 24 mmol/L (21-28) 23 mmol/L (21-28) Arterial Blood Base Excess 0 mmol/L (-3-3) 0 mmol/L (-3-3) FiO2 40 40 White Blood Count 9.7 x10^3/uL (4.0-11.0) Red Blood Count 3.51 x10^6/uL (4.30-5.70) Hemoglobin 10.9 g/dL (13.0-17.5) Hematocrit 31.7 % (39.0-53.0) Mean Corpuscular Volume 90 fL (79-100) Mean Corpuscular Hemoglobin 31 pg (25-35) Mean Corpuscular Hemoglobin Concent 34 g/dL (31-37) Red Cell Distribution Width 14.7 % (11.5-14.5) Platelet Count 255 x10^3/uL (140-400) Neutrophils (%) (Auto) 73 % (31-73) Lymphocytes (%) (Auto) 15 % (24-48) Monocytes (%) (Auto) 9 % (0-9) Eosinophils (%) (Auto) 2 % (0-3) Basophils (%) (Auto) 0 % (0-3) Neutrophils # (Auto) 7.1 x10^3/uL (1.8-7.7) Lymphocytes # (Auto) 1.5 x10^3/uL (1.0-4.8) Monocytes # (Auto) 0.9 x10^3/uL (0.0-1.1) Eosinophils # (Auto) 0.2 x10^3/uL (0.0-0.7) Basophils # (Auto) 0.0 x10^3/uL (0.0-0.2) Sodium Level 142 mmol/L (136-145) Potassium Level 3.4 mmol/L (3.5-5.1) Chloride Level 108 mmol/L (98-107) Carbon Dioxide Level 24 mmol/L (21-32) Anion Gap 10 (6-14) Blood Urea Nitrogen 14 mg/dL (8-26) Creatinine 0.7 mg/dL (0.7-1.3) Estimated GFR (Cockcroft-Gault) 110.9 Glucose Level 97 mg/dL (70-99) Calcium Level 8.0 mg/dL (8.5-10.1) Micro sputum c/s neg Objective: Assessment: Nausea, vomiting with suspected aspiration. Low-grade fever. Leukocytosis - better Respiratory failure. Hypoglycemia. Autism. Hypertension. Benign prostatic hypertrophy. Multiple ANTIBIOTIC ALLERGIES: PCN, meropenem, cephalosporins. ? reaction Plan: Plan of Care Continue Zyvox and Levaquin ? allergy to all beta lactams,unable to get details f/u cultures Supportive care D/w nursing BROOK RIVAS MD Apr 14, 2019 07:50
[2019-04-14] MEDS: IPRATRPIUM/ALBUTEROL 0.5/2.5MG 3 ML NEBU. NEB SCH ×4 (07:56→19:55)
[2019-04-14] MEDS: PANTOPRAZOLE IV PUSH 40 MG VIAL. IVP SCH (07:56)
--- NOTE | 2019-04-14 08:01 | RAD ---
Indication:Pneumonia. TECHNIQUE:Portable AP chest X-ray COMPARISON: 04/13/2019 FINDINGS: Interval extubation and removal of NG tube. Heart is normal in size. Interval improvement in previously seen bilateral basilar opacification. Mild interstitial opacities persists, right more than left. No pneumothorax or large pleural effusion. Visualized bony thorax within normal limits. IMPRESSION: Improvement in bilateral lung base findings comparison exam. Persistent mild interstitial opacities may be secondary to infection or edema. Electronically signed by: Ariel Mcmillan DO (04/14/2019 7:58 AM) [facility]
[2019-04-14] MEDS ORDERED: ADENOSINE 6 MG/2 ML VIAL. IV ONE ×4 (08:36→15:30)
--- NOTE | 2019-04-14 08:45 | NUR ---
0835 Patient in SVT rate of 158 BP 80/56. 0838 6 mg IV adenosine given. 0840 Heart rhythm back in sinus with a rate of 81 and blood pressure of 111/75.
--- NOTE | 2019-04-14 08:46 | PDOC ---
PROGRESS NOTES Assessment Problems Medical Problems: (1) Altered level of consciousness Status: Acute (2) BPH (benign prostatic hyperplasia) Status: Chronic (3) GERD (gastroesophageal reflux disease) Status: Chronic (4) HTN (hypertension) Status: Chronic (5) Hyperglycemia Status: Acute (6) Hypoglycemia Status: Acute Metabolic encephalopathy. Respiratory failure. Seizure or seizure like episode, provoked, EEG on 04/08/19: Encephalopathy. Hypoglycemia, glucose level 20. Hyperglycemia, glucose level 350. Intellectual disability. Plan Treat medical diseases. Ativan 1 mg IV PRN q4h if has further seizures. Holding on adding anticonvulsant Subjective None Objective Vital Signs Date Time Temp Pulse Resp B/P (MAP) Pulse Ox O2 Delivery O2 Flow Rate FiO2 04/14/19 07:58 95 Room Air 04/14/19 06:00 79 24 103/67 (79) 2.0 04/14/19 04:00 99.7 99.7 Intake and Output 04/14/19 06:59 Intake Total 2797 ml Output Total 4010 ml Balance -1213 ml IV Total 2537 ml Tube Feeding 160 ml Other 100 ml Output Urine Total 4010 ml PHYSICAL EXAM Extubated. Smiles, follows commands, nonverbal (autistic at baseline) PERRL. EOMI. CN: no focal findings. Muscle tone: normal. Muscle strength: 3-4/5 DTR: 1+ Plantar reflex: silent Gait: not examined in bed. Sensory exam: no abnormal findings. Cerebellar: not cooperative Review of Relevant I have reviewed the following items aden (where applicable) has been applied. Labs Laboratory Tests Test 04/12/19 08:50 04/12/19 13:58 04/12/19 17:12 04/13/19 00:10 O2 Saturation 96 % (92-99) Arterial Blood pH 7.43 (7.35-7.45) Arterial Blood pCO2 at Patient Temp 37 mmHg (35-46) Arterial Blood pO2 at Patient Temp 83 mmHg (65-108) Arterial Blood HCO3 24 mmol/L (21-28) Arterial Blood Base Excess 0 mmol/L (-3-3) FiO2 40 Glucose (Fingerstick) 139 mg/dL (70-99) 110 mg/dL (70-99) 127 mg/dL (70-99) Test 04/13/19 06:21 04/13/19 08:15 04/13/19 12:55 04/14/19 04:35 Glucose (Fingerstick) 102 mg/dL (70-99) O2 Saturation 96 % (92-99) 96 % (92-99) Arterial Blood pH 7.44 (7.35-7.45) 7.46 (7.35-7.45) Arterial Blood pCO2 at Patient Temp 36 mmHg (35-46) 33 mmHg (35-46) Arterial Blood pO2 at Patient Temp 83 mmHg (65-108) 80 mmHg (65-108) Arterial Blood HCO3 24 mmol/L (21-28) 23 mmol/L (21-28) Arterial Blood Base Excess 0 mmol/L (-3-3) 0 mmol/L (-3-3) FiO2 40 40 White Blood Count 9.7 x10^3/uL (4.0-11.0) Red Blood Count 3.51 x10^6/uL (4.30-5.70) Hemoglobin 10.9 g/dL (13.0-17.5) Hematocrit 31.7 % (39.0-53.0) Mean Corpuscular Volume 90 fL (79-100) Mean Corpuscular Hemoglobin 31 pg (25-35) Mean Corpuscular Hemoglobin Concent 34 g/dL (31-37) Red Cell Distribution Width 14.7 % (11.5-14.5) Platelet Count 255 x10^3/uL (140-400) Neutrophils (%) (Auto) 73 % (31-73) Lymphocytes (%) (Auto) 15 % (24-48) Monocytes (%) (Auto) 9 % (0-9) Eosinophils (%) (Auto) 2 % (0-3) Basophils (%) (Auto) 0 % (0-3) Neutrophils # (Auto) 7.1 x10^3/uL (1.8-7.7) Lymphocytes # (Auto) 1.5 x10^3/uL (1.0-4.8) Monocytes # (Auto) 0.9 x10^3/uL (0.0-1.1) Eosinophils # (Auto) 0.2 x10^3/uL (0.0-0.7) Basophils # (Auto) 0.0 x10^3/uL (0.0-0.2) Sodium Level 142 mmol/L (136-145) Potassium Level 3.4 mmol/L (3.5-5.1) Chloride Level 108 mmol/L (98-107) Carbon Dioxide Level 24 mmol/L (21-32) Anion Gap 10 (6-14) Blood Urea Nitrogen 14 mg/dL (8-26) Creatinine 0.7 mg/dL (0.7-1.3) Estimated GFR (Cockcroft-Gault) 110.9 Glucose Level 97 mg/dL (70-99) Calcium Level 8.0 mg/dL (8.5-10.1) Laboratory Tests Test 04/13/19 12:55 04/14/19 04:35 O2 Saturation 96 % (92-99) Arterial Blood pH 7.46 (7.35-7.45) Arterial Blood pCO2 at Patient Temp 33 mmHg (35-46) Arterial Blood pO2 at Patient Temp 80 mmHg (65-108) Arterial Blood HCO3 23 mmol/L (21-28) Arterial Blood Base Excess 0 mmol/L (-3-3) FiO2 40 White Blood Count 9.7 x10^3/uL (4.0-11.0) Red Blood Count 3.51 x10^6/uL (4.30-5.70) Hemoglobin 10.9 g/dL (13.0-17.5) Hematocrit 31.7 % (39.0-53.0) Mean Corpuscular Volume 90 fL (79-100) Mean Corpuscular Hemoglobin 31 pg (25-35) Mean Corpuscular Hemoglobin Concent 34 g/dL (31-37) Red Cell Distribution Width 14.7 % (11.5-14.5) Platelet Count 255 x10^3/uL (140-400) Neutrophils (%) (Auto) 73 % (31-73) Lymphocytes (%) (Auto) 15 % (24-48) Monocytes (%) (Auto) 9 % (0-9) Eosinophils (%) (Auto) 2 % (0-3) Basophils (%) (Auto) 0 % (0-3) Neutrophils # (Auto) 7.1 x10^3/uL (1.8-7.7) Lymphocytes # (Auto) 1.5 x10^3/uL (1.0-4.8) Monocytes # (Auto) 0.9 x10^3/uL (0.0-1.1) Eosinophils # (Auto) 0.2 x10^3/uL (0.0-0.7) Basophils # (Auto) 0.0 x10^3/uL (0.0-0.2) Sodium Level 142 mmol/L (136-145) Potassium Level 3.4 mmol/L (3.5-5.1) Chloride Level 108 mmol/L (98-107) Carbon Dioxide Level 24 mmol/L (21-32) Anion Gap 10 (6-14) Blood Urea Nitrogen 14 mg/dL (8-26) Creatinine 0.7 mg/dL (0.7-1.3) Estimated GFR (Cockcroft-Gault) 110.9 Glucose Level 97 mg/dL (70-99) Calcium Level 8.0 mg/dL (8.5-10.1) Microbiology 04/10/19 - Final, Resulted 04/10/19 - Final, Resulted 04/10/19 - Final, Resulted 04/10/19 - Preliminary, Resulted 04/10/19 - Preliminary, Resulted 04/10/19 - Preliminary, Resulted 04/10/19 Gram Stain Evaluation - Final, Resulted 04/10/19 Sputum Culture, Resulted Pending 04/10/19 Blood Culture - Preliminary, Resulted NO GROWTH AFTER 3 DAYS Medications Current Medications Etomidate (Amidate) 20 mg 1X ONCE IV Last administered on 04/06/19at 19:47; Start 04/06/19 at 17:30; Stop 04/06/19 at 17:31; Status DC Succinylcholine Chloride (Anectine) 100 mg 1X ONCE IV Last administered on 04/06/19at 19:47; Start 04/06/19 at 17:30; Stop 04/06/19 at 17:31; Status DC Propofol 50 ml @ As Directed STK-MED ONCE IV ; Start 04/06/19 at 17:27; Stop 04/06/19 at 17:28; Status DC Iohexol (Omnipaque 350 Mg/ml) 75 ml 1X ONCE IV Last administered on 04/06/19at 17:56; Start 04/06/19 at 17:45; Stop 04/06/19 at 17:46; Status DC Info (CONTRAST GIVEN -- Rx MONITORING) 1 each PRN DAILY PRN MC SEE COMMENTS; Start 04/06/19 at 17:45; Stop 04/08/19 at 17:44; Status DC Sodium Chloride 1,000 ml @ 1,000 mls/hr 1X ONCE IV Last administered on 04/06/19 19:47; Start 04/06/19 at 18:00; Stop 04/06/19 at 18:59; Status DC Propofol 50 ml @ 1.191 mls/ hr 1X ONCE IV Last administered on 04/06/19 19:47; Start 04/06/19 at 18:30; Stop 04/08/19 at 07:31; Status DC Naloxone HCl (Narcan) 2 mg STK-MED ONCE .ROUTE ; Start 04/06/19 at 18:38; Stop 04/06/19 at 18:38; Status DC Naloxone HCl (Narcan) 2 mg 1X ONCE IV Last administered on 04/06/19 19:47; Start 04/06/19 at 18:45; Stop 04/06/19 at 18:46; Status DC Sodium Chloride 1,000 ml @ 125 mls/hr Q8H IV Last administered on 04/07/19 08:28; Start 04/06/19 at 19:00; Stop 04/07/19 at 17:17; Status DC Pantoprazole Sodium (PROTONIX VIAL for IV PUSH) 40 mg DAILYAC IVP Last administered on 04/14/19 07:56; Start 04/07/19 at 07:30 Enoxaparin Sodium (Lovenox 40mg Syringe) 40 mg Q24H SQ Last administered on 04/13/19 22:57; Start 04/06/19 at 21:00 Acetaminophen (Tylenol) 650 mg PRN BID PRN PO PAIN; Start 04/06/19 at 20:00 Aspirin (Children'S Aspirin) 81 mg DAILY PO Last administered on 04/13/19 09:50; Start 04/07/19 at 09:00 Lorazepam (Ativan) 0.5 mg HS PO Last administered on 04/12/19 22:08; Start 04/06/19 at 21:00 Tamsulosin HCl (Flomax) 0.4 mg DAILY PO Last administered on 04/13/19 09:50; Start 04/07/19 at 09:00 Multivitamins (Thera M Plus) 1 tab DAILY PO Last administered on 04/13/19 09:50; Start 04/07/19 at 09:00 Insulin Human Lispro (HumaLOG) 0-7 UNITS TIDWMEALS SQ ; Start 04/07/19 at 08:00; Stop 04/07/19 at 15:12; Status DC Dextrose (Dextrose 50%-Water Syringe) 12.5 gm PRN Q15MIN PRN IV SEE COMMENTS; Start 04/06/19 at 20:00 Dextrose 250 ml PRN Q15MIN PRN IV SEE COMMENTS; Start 04/06/19 at 20:00 Propofol 100 ml @ As Directed STK-MED ONCE IV ; Start 04/07/19 at 01:11; Stop 04/07/19 at 01:11; Status DC Propofol 100 ml @ 1.164 mls/ hr CONT PRN IV SEDATION Last administered on 04/12/19at 22:08; Start 04/07/19 at 02:15 Multi-Ingred Cream/Lotion/Oil/ Oint (Artificial Tears Eye Ointment) 1 valerie PRN Q1HR PRN OU DRY EYE Last administered on 04/11/19at 12:11; Start 04/07/19 at 11:15 Adenosine (Adenocard) 6 mg STK-MED ONCE IV ; Start 04/07/19 at 11:20; Stop 04/07/19 at 11:21; Status DC Adenosine (Adenocard) 6 mg 1X ONCE IV Last administered on 04/07/19at 11:24; Start 04/07/19 at 11:30; Stop 04/07/19 at 11:31; Status DC Diltiazem HCl (Cardizem) 30 mg Q8HRS PO Last administered on 04/13/19at 06:19; Start 04/07/19 at 12:00 Insulin Human Lispro (HumaLOG) 0-7 UNITS Q6HRS SQ ; Start 04/07/19 at 18:00 Sodium Chloride 1,000 ml @ 100 mls/hr Q10H IV Last administered on 04/11/19at 01:23; Start 04/07/19 at 17:15; Stop 04/11/19 at 10:18; Status DC Potassium Bicarbonate (Potassium Effervescent Tablet) 20 meq 1X ONCE PEG Last administered on 04/08/19at 16:20; Start 04/08/19 at 14:30; Stop 04/08/19 at 14:31; Status DC Linezolid/Dextrose 300 ml @ 300 mls/hr Q12HR IV Last administered on 04/14/19 08:04; Start 04/10/19 at 11:00 Levofloxacin/ Dextrose 100 ml @ 100 mls/hr Q24H IV Last administered on 04/13/19at 11:45; Start 04/10/19 at 11:00 Albuterol/ Ipratropium (Duoneb) 3 ml RTQID NEB Last administered on 04/14/19at 07:56; Start 04/10/19 at 12:00 Albuterol/ Ipratropium (Duoneb) 3 ml 1X ONCE NEB ; Start 04/10/19 at 11:00; Stop 04/10/19 at 11:12; Status DC Fentanyl Citrate 30 ml @ 0 mls/hr CONT PRN IV SEE PROTOCOL Last administered on 04/12/19at 05:09; Start 04/11/19 at 07:15 Sodium Chloride 1,000 ml @ 125 mls/hr Q8H IV Last administered on 04/14/19at 03:07; Start 04/11/19 at 10:30 Sodium Chloride 500 ml @ 500 mls/hr 1X ONCE IV Last administered on 04/11/19at 10:34; Start 04/11/19 at 10:30; Stop 04/11/19 at 11:29; Status DC Sodium Chloride 500 ml @ 500 mls/hr 1X ONCE IV ; Start 04/11/19 at 11:00; Stop 04/11/19 at 11:59; Status DC Furosemide (Lasix) 40 mg 1X ONCE IVP Last administered on 04/12/19at 11:06; Start 04/12/19 at 10:45; Stop 04/12/19 at 10:46; Status DC Dexmedetomidine HCl 400 mcg/ Sodium Chloride 100 ml @ 0 mls/hr CONT PRN IV sedation Last administered on 04/13/19at 03:30; Start 04/12/19 at 11:00 Sodium Chloride 500 ml @ 500 mls/hr 1X PRN PRN IV ANXIETY / AGITATION; Start 04/12/19 at 11:00 Atropine Sulfate (ATROPINE 0.5mg SYRINGE) 0.5 mg PRN Q5MIN PRN IV SEE COMMENTS; Start 04/12/19 at 11:00 Fentanyl Citrate (Fentanyl 600 Mcg/30 ml [employer]) 600 mcg STK-MED ONCE IV ; Start 04/11/19 at 08:03; Stop 04/13/19 at 09:29; Status DC Furosemide (Lasix) 40 mg 1X ONCE IVP Last administered on 04/13/19at 19:41; Start 04/13/19 at 11:30; Stop 04/13/19 at 11:31; Status DC Metoprolol Tartrate (Lopressor Vial) 5 mg Q6HRS IVP Last administered on 04/14/19at 03:15; Start 04/14/19 at 00:00 Adenosine (Adenocard) 6 mg STK-MED ONCE IV ; Start 04/14/19 at 08:36; Stop 04/14/19 at 08:36; Status DC Adenosine (Adenocard) 6 mg 1X ONCE IV ; Start 04/14/19 at 09:15; Stop 04/14/19 at 09:16 Active Scripts Active Pyridium (Phenazopyridine Hcl) 200 Mg Tablet 200 Mg PO TID Cipro (Ciprofloxacin Hcl) 250 Mg Tablet 1 Tab PO BID Ciprofloxacin Hcl 500 Mg Tablet 500 Mg PO BID Reported Ativan (Lorazepam) 0.5 Mg Tablet 0.5 Mg PO HS Tamsulosin Hcl 0.4 Mg Cap.er.24h 0.4 Mg PO DAILY Multi-Day Vitamins (Multivitamin) 1 Each Tablet 1 Tab PO DAILY Tylenol (Acetaminophen) 325 Mg Tablet 2 Tab PO BID PRN Losartan Potassium 50 Mg Tablet 1 Tab PO DAILY Zantac (Ranitidine Hcl) 150 Mg Tablet 1 Tab PO DAILY Aspirin 81 Mg Tab.chew 1 Tab PO DAILY Vitals/I & O Vital Sign - Last 24 Hours 04/13/19 04/13/19 04/13/19 04/13/19 09:00 09:39 10:00 11:00 Pulse 60 62 68 Resp 15 15 19 B/P (MAP) 92/59 (70) 106/62 (77) 111/67 (82) Pulse Ox 97 97 98 96 O2 Delivery Ventilator Ventilator Ventilator Ventilator 04/13/19 04/13/19 04/13/19 04/13/19 11:22 12:00 12:00 13:00 Temp 99.0 99.0 Pulse 68 78 Resp 18 23 B/P (MAP) 105/68 (80) 114/76 (89) Pulse Ox 96 98 94 O2 Delivery Ventilator trial ac 40 05/29 Mechanical Ventilator trial ac 40 10/5 04/13/19 04/13/19 04/13/19 04/13/19 13:45 14:00 15:00 16:00 Pulse 86 92 Resp 21 26 B/P (MAP) 119/60 (79) Pulse Ox 94 93 96 O2 Delivery Nasal Cannula Nasal Cannula Nasal Cannula Mechanical Ventilator O2 Flow Rate 3.0 3.0 3.0 04/13/19 04/13/19 04/13/19 04/13/19 16:00 16:21 17:00 18:00 Temp 98.8 98.8 Pulse 92 98 94 Resp 26 33 25 B/P (MAP) 126/71 (89) 131/75 (93) 132/ Pulse Ox 97 96 97 97 O2 Delivery Nasal Cannula Nasal Cannula Nasal Cannula Nasal Cannula O2 Flow Rate 3.0 3.0 2.0 2.0 04/13/19 04/13/19 04/13/19 04/13/19 19:00 20:00 20:00 20:23 Temp 98.9 98.9 Pulse 93 92 Resp 32 33 B/P (MAP) 115/68 (84) 120/67 (84) Pulse Ox 96 97 97 O2 Delivery Nasal Cannula Nasal Cannula Nasal Cannula Nasal Cannula O2 Flow Rate 2.0 2.0 2.0 3.0 04/13/19 04/13/19 04/13/19 04/13/19 21:00 22:00 23:00 23:59 Pulse 90 90 94 Resp 23 36 26 B/P (MAP) 113/70 (84) 123/69 (87) 140/65 (90) Pulse Ox 99 98 97 O2 Delivery Nasal Cannula Nasal Cannula Nasal Cannula Nasal Cannula O2 Flow Rate 2.0 2.0 2.0 2.0 04/14/19 04/14/19 04/14/19 04/14/19 00:00 01:00 02:00 03:00 Temp 98.5 98.5 Pulse 93 94 94 87 Resp 32 29 25 24 B/P (MAP) 129/76 (93) 122/74 (90) 127/67 (87) 111/86 (94) Pulse Ox 95 98 97 97 O2 Delivery Nasal Cannula Nasal Cannula Nasal Cannula Nasal Cannula O2 Flow Rate 2.0 2.0 2.0 2.0 04/14/19 04/14/19 04/14/19 04/14/19 03:08 03:15 04:00 04:00 Temp 99.7 99.7 Pulse 94 94 87 Resp 24 B/P (MAP) 127/67 127/67 111/86 (94) Pulse Ox 97 O2 Delivery Nasal Cannula Nasal Cannula O2 Flow Rate 2.0 2.0 04/14/19 04/14/19 04/14/19 05:00 06:00 07:58 Pulse 78 79 Resp 24 24 B/P (MAP) 105/65 (78) 103/67 (79) Pulse Ox 97 97 95 O2 Delivery Nasal Cannula Nasal Cannula Room Air O2 Flow Rate 2.0 2.0 Intake and Output 04/13/19 04/13/19 04/14/19 14:59 22:59 06:59 Intake Total 260 ml 2237 ml 300 ml Output Total 2050 ml 1325 ml 635 ml Balance -1790 ml 912 ml -335 ml SALOME DEXTER MD Apr 14, 2019 08:46
[2019-04-14] MEDS: TAMSULOSIN 0.4 MG CAP.ER.24H. PO SCH (09:00)
[2019-04-14] MEDS: ASPIRIN CHEWABLE 81 MG TABLET. PO SCH (09:00)
[2019-04-14] MEDS: MULTIVITAMIN with MINERAL TABLET. PO SCH (09:00)
--- NOTE | 2019-04-14 09:47 | PDOC ---
PROGRESS NOTES Subjective Subjective extubated 04/13/19 Objective Objective Vital Signs Date Time Temp Pulse Resp B/P (MAP) Pulse Ox O2 Delivery O2 Flow Rate FiO2 04/14/19 09:00 82 24 97/66 (76) 94 Room Air 04/14/19 08:00 2.0 04/14/19 07:00 98.9 98.9 Intake and Output 04/14/19 06:59 Intake Total 2797 ml Output Total 4010 ml Balance -1213 ml IV Total 2537 ml Tube Feeding 160 ml Other 100 ml Output Urine Total 4010 ml Physical Exam Abdomen: Soft Heart: Regular rate (SR), Normal S1, Normal S2, Other (2/6 systolic murmur to LLS border) Extremities: No cyanosis, No edema General: Other (sedated, intubated) HEENT: Atraumatic, Mucous membr. moist/pink Lungs: Other (intubated with vent, coarse lung sounds) MUSCULOSKELETAL: Osteoarthritic changes both hands Neuro: Other (sedated) Skin: No breakdown, No significant lesion COMMENT otto Diagnosis Problem List Problems Medical Problems: (1) Altered level of consciousness Status: Acute (2) BPH (benign prostatic hyperplasia) Status: Chronic (3) GERD (gastroesophageal reflux disease) Status: Chronic (4) HTN (hypertension) Status: Chronic (5) Hyperglycemia Status: Acute (6) Hypoglycemia Status: Acute Assessment Assessment Problems Medical Problems: (1) Altered level of consciousness Status: Acute (2) BPH (benign prostatic hyperplasia) Status: Chronic (3) GERD (gastroesophageal reflux disease) Status: Chronic (4) HTN (hypertension) Status: Chronic (5) Hyperglycemia Status: Acute (6) Hypoglycemia Status: Acute Assessment/Plan:Ac resp failure on Vent, extubated 04/13/19 Hypotension resolved with fluids Pneumonia?Aspiration from seizures HYPOGLYCEMIA causing MINIMAL responsiveness, intubated for airway protection . HYPOTENSION, post intubation, responded to fluid . Seizures? PSVT GERD BPH HTN Plan: extubated 04/13 iv lasix prn spoke with Dr Bañuelos speech consult pt/ot replace pot,3.4 today cxr improving cxr gela lung infiltrates iv antibiotics zyvox+levaquin id +pul+neuro consults duoneb qid tube feedings. EEG neg for seizures CTA noted no stroke or aneurysm. labs tomorrow spoke with RN DVT+GI prophylaxis Plan Plan of Care Problems Medical Problems: (1) Altered level of consciousness Status: Acute (2) BPH (benign prostatic hyperplasia) Status: Chronic (3) GERD (gastroesophageal reflux disease) Status: Chronic (4) HTN (hypertension) Status: Chronic (5) Hyperglycemia Status: Acute (6) Hypoglycemia Status: Acute Comment Review of Relevant I have reviewed the following items aden (where applicable) has been applied. Labs Laboratory Tests Test 04/13/19 12:55 04/14/19 04:35 O2 Saturation 96 % (92-99) Arterial Blood pH 7.46 (7.35-7.45) Arterial Blood pCO2 at Patient Temp 33 mmHg (35-46) Arterial Blood pO2 at Patient Temp 80 mmHg (65-108) Arterial Blood HCO3 23 mmol/L (21-28) Arterial Blood Base Excess 0 mmol/L (-3-3) FiO2 40 White Blood Count 9.7 x10^3/uL (4.0-11.0) Red Blood Count 3.51 x10^6/uL (4.30-5.70) Hemoglobin 10.9 g/dL (13.0-17.5) Hematocrit 31.7 % (39.0-53.0) Mean Corpuscular Volume 90 fL (79-100) Mean Corpuscular Hemoglobin 31 pg (25-35) Mean Corpuscular Hemoglobin Concent 34 g/dL (31-37) Red Cell Distribution Width 14.7 % (11.5-14.5) Platelet Count 255 x10^3/uL (140-400) Neutrophils (%) (Auto) 73 % (31-73) Lymphocytes (%) (Auto) 15 % (24-48) Monocytes (%) (Auto) 9 % (0-9) Eosinophils (%) (Auto) 2 % (0-3) Basophils (%) (Auto) 0 % (0-3) Neutrophils # (Auto) 7.1 x10^3/uL (1.8-7.7) Lymphocytes # (Auto) 1.5 x10^3/uL (1.0-4.8) Monocytes # (Auto) 0.9 x10^3/uL (0.0-1.1) Eosinophils # (Auto) 0.2 x10^3/uL (0.0-0.7) Basophils # (Auto) 0.0 x10^3/uL (0.0-0.2) Sodium Level 142 mmol/L (136-145) Potassium Level 3.4 mmol/L (3.5-5.1) Chloride Level 108 mmol/L (98-107) Carbon Dioxide Level 24 mmol/L (21-32) Anion Gap 10 (6-14) Blood Urea Nitrogen 14 mg/dL (8-26) Creatinine 0.7 mg/dL (0.7-1.3) Estimated GFR (Cockcroft-Gault) 110.9 Glucose Level 97 mg/dL (70-99) Calcium Level 8.0 mg/dL (8.5-10.1) Magnesium Level 2.0 mg/dL (1.8-2.4) Microbiology 04/10/19 - Final, Resulted 04/10/19 - Final, Resulted 04/10/19 - Final, Resulted 04/10/19 - Preliminary, Resulted 04/10/19 - Preliminary, Resulted 04/10/19 - Preliminary, Resulted 04/10/19 Gram Stain Evaluation - Final, Resulted 04/10/19 Sputum Culture, Resulted Pending 04/10/19 Blood Culture - Preliminary, Resulted NO GROWTH AFTER 3 DAYS Medications Current Medications Adenosine (Adenocard) 6 mg 1X ONCE IV Last administered on 04/14/19at 08:47; Start 04/14/19 at 09:15; Stop 04/14/19 at 09:16; Status DC Adenosine (Adenocard) 6 mg 1X ONCE IV ; Start 04/14/19 at 09:30; Stop 04/14/19 at 09:31; Status DC Adenosine (Adenocard) 6 mg STK-MED ONCE IV ; Start 04/14/19 at 08:36; Stop 04/14/19 at 08:36; Status DC Furosemide (Lasix) 40 mg 1X ONCE IVP Last administered on 04/13/19at 19:41; Start 04/13/19 at 11:30; Stop 04/13/19 at 11:31; Status DC Metoprolol Tartrate (Lopressor Vial) 5 mg Q6HRS IVP Last administered on 04/14/19at 03:15; Start 04/14/19 at 00:00 Vitals/I & O Vital Sign - Last 24 Hours 04/13/19 04/13/19 04/13/19 04/13/19 10:00 11:00 11:22 12:00 Temp 99.0 99.0 Pulse 62 68 68 Resp 15 19 18 B/P (MAP) 106/62 (77) 111/67 (82) 105/68 (80) Pulse Ox 98 96 96 98 O2 Delivery Ventilator Ventilator Ventilator trial ac 40 10/5 04/13/19 04/13/19 04/13/19 04/13/19 12:00 13:00 13:45 14:00 Pulse 78 86 Resp 23 21 B/P (MAP) 114/76 (89) Pulse Ox 94 94 93 O2 Delivery Mechanical Ventilator trial ac 40 10/5 Nasal Cannula Nasal Cannula O2 Flow Rate 3.0 3.0 04/13/19 04/13/19 04/13/19 04/13/19 15:00 16:00 16:00 16:21 Temp 98.8 98.8 Pulse 92 92 Resp 26 26 B/P (MAP) 119/60 (79) 126/71 (89) Pulse Ox 96 97 96 O2 Delivery Nasal Cannula Mechanical Ventilator Nasal Cannula Nasal Cannula O2 Flow Rate 3.0 3.0 3.0 04/13/19 04/13/19 04/13/19 04/13/19 17:00 18:00 19:00 20:00 Temp 98.9 98.9 Pulse 98 94 93 92 Resp 33 25 32 33 B/P (MAP) 131/75 (93) 132/ 115/68 (84) 120/67 (84) Pulse Ox 97 97 96 97 O2 Delivery Nasal Cannula Nasal Cannula Nasal Cannula Nasal Cannula O2 Flow Rate 2.0 2.0 2.0 2.0 04/13/19 04/13/19 04/13/19 04/13/19 20:00 20:23 21:00 22:00 Pulse 90 90 Resp 23 36 B/P (MAP) 113/70 (84) 123/69 (87) Pulse Ox 97 99 98 O2 Delivery Nasal Cannula Nasal Cannula Nasal Cannula Nasal Cannula O2 Flow Rate 2.0 3.0 2.0 2.0 04/13/19 04/13/19 04/14/19 04/14/19 23:00 23:59 00:00 01:00 Temp 98.5 98.5 Pulse 94 93 94 Resp 26 32 29 B/P (MAP) 140/65 (90) 129/76 (93) 122/74 (90) Pulse Ox 97 95 98 O2 Delivery Nasal Cannula Nasal Cannula Nasal Cannula Nasal Cannula O2 Flow Rate 2.0 2.0 2.0 2.0 04/14/19 04/14/19 04/14/19 04/14/19 02:00 03:00 03:08 03:15 Pulse 94 87 94 94 Resp 25 24 B/P (MAP) 127/67 (87) 111/86 (94) 127/67 127/67 Pulse Ox 97 97 O2 Delivery Nasal Cannula Nasal Cannula O2 Flow Rate 2.0 2.0 04/14/19 04/14/19 04/14/19 04/14/19 04:00 04:00 05:00 06:00 Temp 99.7 99.7 Pulse 87 78 79 Resp 24 24 24 B/P (MAP) 111/86 (94) 105/65 (78) 103/67 (79) Pulse Ox 97 97 97 O2 Delivery Nasal Cannula Nasal Cannula Nasal Cannula Nasal Cannula O2 Flow Rate 2.0 2.0 2.0 2.0 04/14/19 04/14/19 04/14/19 04/14/19 07:00 07:58 08:00 08:00 Temp 98.9 98.9 Pulse 80 77 Resp 18 22 B/P (MAP) 101/73 (82) 105/72 (83) Pulse Ox 96 95 100 O2 Delivery Room Air Room Air Nasal Cannula Room Air O2 Flow Rate 2.0 04/14/19 09:00 Pulse 82 Resp 24 B/P (MAP) 97/66 (76) Pulse Ox 94 O2 Delivery Room Air Intake and Output 04/13/19 04/13/19 04/14/19 14:59 22:59 06:59 Intake Total 260 ml 2237 ml 300 ml Output Total 2050 ml 1325 ml 635 ml Balance -1790 ml 912 ml -335 ml ROSALVA GOODWIN MD Apr 14, 2019 09:47
--- NOTE | 2019-04-14 09:49 | PDOC ---
PULMONARY PROGRESS NOTES Subjective extubated 04/13 Had SVT last night doing well pulmonary felipe Vitals Vital Signs Date Time Temp Pulse Resp B/P (MAP) Pulse Ox O2 Delivery O2 Flow Rate FiO2 04/14/19 09:00 82 24 97/66 (76) 94 Room Air 04/14/19 08:00 2.0 04/14/19 07:00 98.9 98.9 Comments General: Alert, No acute distress HEENT: Other (nc at perrl nose clear orally intubated neck no lad no thyromegaly) Lungs: Other (few rhonchi) Cardiovascular: S1, S2 Abdomen: Soft, Non-tender, Other (no mass) Neuro Exam: Alert Extremities: Other (EDEMA) Skin: Warm Labs Laboratory Tests Test 04/12/19 13:58 04/12/19 17:12 04/13/19 00:10 04/13/19 06:21 Glucose (Fingerstick) 139 mg/dL (70-99) 110 mg/dL (70-99) 127 mg/dL (70-99) 102 mg/dL (70-99) Test 04/13/19 08:15 04/13/19 12:55 04/14/19 04:35 O2 Saturation 96 % (92-99) 96 % (92-99) Arterial Blood pH 7.44 (7.35-7.45) 7.46 (7.35-7.45) Arterial Blood pCO2 at Patient Temp 36 mmHg (35-46) 33 mmHg (35-46) Arterial Blood pO2 at Patient Temp 83 mmHg (65-108) 80 mmHg (65-108) Arterial Blood HCO3 24 mmol/L (21-28) 23 mmol/L (21-28) Arterial Blood Base Excess 0 mmol/L (-3-3) 0 mmol/L (-3-3) FiO2 40 40 White Blood Count 9.7 x10^3/uL (4.0-11.0) Red Blood Count 3.51 x10^6/uL (4.30-5.70) Hemoglobin 10.9 g/dL (13.0-17.5) Hematocrit 31.7 % (39.0-53.0) Mean Corpuscular Volume 90 fL (79-100) Mean Corpuscular Hemoglobin 31 pg (25-35) Mean Corpuscular Hemoglobin Concent 34 g/dL (31-37) Red Cell Distribution Width 14.7 % (11.5-14.5) Platelet Count 255 x10^3/uL (140-400) Neutrophils (%) (Auto) 73 % (31-73) Lymphocytes (%) (Auto) 15 % (24-48) Monocytes (%) (Auto) 9 % (0-9) Eosinophils (%) (Auto) 2 % (0-3) Basophils (%) (Auto) 0 % (0-3) Neutrophils # (Auto) 7.1 x10^3/uL (1.8-7.7) Lymphocytes # (Auto) 1.5 x10^3/uL (1.0-4.8) Monocytes # (Auto) 0.9 x10^3/uL (0.0-1.1) Eosinophils # (Auto) 0.2 x10^3/uL (0.0-0.7) Basophils # (Auto) 0.0 x10^3/uL (0.0-0.2) Sodium Level 142 mmol/L (136-145) Potassium Level 3.4 mmol/L (3.5-5.1) Chloride Level 108 mmol/L (98-107) Carbon Dioxide Level 24 mmol/L (21-32) Anion Gap 10 (6-14) Blood Urea Nitrogen 14 mg/dL (8-26) Creatinine 0.7 mg/dL (0.7-1.3) Estimated GFR (Cockcroft-Gault) 110.9 Glucose Level 97 mg/dL (70-99) Calcium Level 8.0 mg/dL (8.5-10.1) Magnesium Level 2.0 mg/dL (1.8-2.4) Laboratory Tests Test 04/13/19 12:55 04/14/19 04:35 O2 Saturation 96 % (92-99) Arterial Blood pH 7.46 (7.35-7.45) Arterial Blood pCO2 at Patient Temp 33 mmHg (35-46) Arterial Blood pO2 at Patient Temp 80 mmHg (65-108) Arterial Blood HCO3 23 mmol/L (21-28) Arterial Blood Base Excess 0 mmol/L (-3-3) FiO2 40 White Blood Count 9.7 x10^3/uL (4.0-11.0) Red Blood Count 3.51 x10^6/uL (4.30-5.70) Hemoglobin 10.9 g/dL (13.0-17.5) Hematocrit 31.7 % (39.0-53.0) Mean Corpuscular Volume 90 fL (79-100) Mean Corpuscular Hemoglobin 31 pg (25-35) Mean Corpuscular Hemoglobin Concent 34 g/dL (31-37) Red Cell Distribution Width 14.7 % (11.5-14.5) Platelet Count 255 x10^3/uL (140-400) Neutrophils (%) (Auto) 73 % (31-73) Lymphocytes (%) (Auto) 15 % (24-48) Monocytes (%) (Auto) 9 % (0-9) Eosinophils (%) (Auto) 2 % (0-3) Basophils (%) (Auto) 0 % (0-3) Neutrophils # (Auto) 7.1 x10^3/uL (1.8-7.7) Lymphocytes # (Auto) 1.5 x10^3/uL (1.0-4.8) Monocytes # (Auto) 0.9 x10^3/uL (0.0-1.1) Eosinophils # (Auto) 0.2 x10^3/uL (0.0-0.7) Basophils # (Auto) 0.0 x10^3/uL (0.0-0.2) Sodium Level 142 mmol/L (136-145) Potassium Level 3.4 mmol/L (3.5-5.1) Chloride Level 108 mmol/L (98-107) Carbon Dioxide Level 24 mmol/L (21-32) Anion Gap 10 (6-14) Blood Urea Nitrogen 14 mg/dL (8-26) Creatinine 0.7 mg/dL (0.7-1.3) Estimated GFR (Cockcroft-Gault) 110.9 Glucose Level 97 mg/dL (70-99) Calcium Level 8.0 mg/dL (8.5-10.1) Magnesium Level 2.0 mg/dL (1.8-2.4) Medications Active Scripts Medications Dose Route/Sig Max Daily Dose Days Date Category Pyridium (Phenazopyridine Hcl) 200 Mg Tablet 200 Mg PO TID 12/17/16 Rx Cipro (Ciprofloxacin Hcl) 250 Mg Tablet 1 Tab PO BID 12/17/16 Rx Ciprofloxacin Hcl 500 Mg Tablet 500 Mg PO BID 07/13/15 Rx Ativan (Lorazepam) 0.5 Mg Tablet 0.5 Mg PO HS 07/11/15 Reported Tamsulosin Hcl 0.4 Mg Cap.er.24h 0.4 Mg PO DAILY 05/08/15 Reported Multi-Day Vitamins (Multivitamin) 1 Each Tablet 1 Tab PO DAILY 04/17/15 Reported Tylenol (Acetaminophen) 325 Mg Tablet 2 Tab PO BID PRN 02/07/15 Reported Losartan Potassium 50 Mg Tablet 1 Tab PO DAILY 02/07/15 Reported Zantac (Ranitidine Hcl) 150 Mg Tablet 1 Tab PO DAILY 02/07/15 Reported Aspirin 81 Mg Tab.chew 1 Tab PO DAILY 02/07/15 Reported Comments reviewed cxr 04/14 improved CHF,right pleural effusion. still present. R>L. No pneumothorax. Impression . 1. Eic-cg-slpaiwek arrest.extubated 04/13 2. Respiratory failure secondary to above. 3. Hypoglycemia. resolved 4. History of autism. 5. Hypertension. 6. Benign prostatic hypertrophy. 7. METABOLIC ENCE POA, improved 8. SEIZURES 9. abnl cxr, aspiration pneumonitis vs CHF, IMPROVED AERATION POST DIURESIS 10. SVT Plan . cont nasal canula reviewed cxr, CHF mild, still has right effusion, on Abx per ID, will try extra lasix today CONTINUE SUPPORT FOR NOW FOLLOW CARD INPUT DVT AND GI PROPH elevate hob discussed w rn rt LILLI SAHU MD Apr 14, 2019 09:49
[2019-04-14] MEDS ORDERED: FUROSEMIDE 40 MG/4 ML VIAL. IVP ONE (10:30)
[2019-04-14] MEDS: AMINO AC 3%/ELECTROLYTE/GLYCER 1,000 ML IV SCH ×2 (10:56→22:51)
--- NOTE | 2019-04-14 11:28 | NUR ---
SS following up with discharge planning. SS phoned and faxed clinical updates to [facility], ; fax [phone]. Pt accepted at [facility]. SS will continue to follow for discharge planning.
[2019-04-14] MEDS: POTASSIUM CHLORIDE 10MEQ 100 ML IV SCH ×4 (12:52→16:38)
[2019-04-14] MEDS ORDERED: ONDANSETRON PF 4 MG/2 ML VIAL. IV PRN (14:45)
--- NOTE | 2019-04-14 15:30 | NUR ---
run SVT 160s with SBP down to 70's.
--- NOTE | 2019-04-14 15:40 | NUR ---
Gem Holguin APRN notified of patient having runs of SVT and symptomatic with SBP down to 70's and 80's.
--- NOTE | 2019-04-14 15:48 | PDOC2 ---
PALLIATIVE CARE Palliative Care Note Palliative Care Patient awake. Does not follow commands. Copy of Advanced Directive placed on record. Patient has been accepted at [facility]. Swallow evaluation noted. OTONIEL MICHEL Apr 14, 2019 15:48
[2019-04-14] MEDS: LORazepam 0.5 MG TABLET PO SCH (21:00)
[2019-04-14] MEDS: ENOXAPARIN 40 MG/0.4 ML SYRINGE. SQ SCH (22:52)
[2019-04-15] VITALS (17 sets, daily range): BP systolic 97–124; BP diastolic 54–81
[2019-04-15] MEDS: METOPROLOL TARTRATE 5 MG/5 ML VIAL. IVP SCH ×4 (02:00→17:31)
[2019-04-15] MEDS: dilTIAZem HCL 30 MG TABLET PO SCH (05:51)
[2019-04-15] MEDS: INSULIN LISPRO 300 UNITS/3 ML VIAL. SQ SCH ×4 (05:51→17:36)
--- NOTE | 2019-04-15 07:07 | PDOC ---
Infectious Disease Note Subjective: Subjective Pt more alert today, smiling does not verbalize comfortable d/w rn no f/c/n/v had run of svt ,now in sinus rhythm Vital Signs: Vital Signs Vital Signs Date Time Temp Pulse Resp B/P (MAP) Pulse Ox O2 Delivery O2 Flow Rate FiO2 04/15/19 05:51 83 107/74 04/15/19 04:00 Room Air 04/15/19 04:00 98.3 30 93 98.3 04/14/19 08:00 2.0 Physical Exam: PHYSICAL EXAM GENERAL: alert awake, gentleman, not in any distress. HEENT: Pupils equal. no thrush NECK: Supple LUNGS: Clear. HEART: S1, S2 ABDOMEN: Soft, BS present : Ortega EXTREMITIES: trace edema, no cyanosis. SKIN: warm to touch. No signs of rash NEUROLOGIC: alert awake, moves legs some PIVs Medications: Inpatient Meds: Current Medications Medications (Trade) Dose Ordered Sig/Jason Start Time Stop Time Status Last Admin Dose Admin Acetaminophen (Tylenol) 650 mg PRN BID PRN 04/06/19 20:00 Adenosine (Adenocard) 6 mg STK-MED ONCE 04/14/19 15:30 04/14/19 15:30 DC Albuterol/ Ipratropium (Duoneb) 3 ml 1X ONCE 04/10/19 11:00 04/10/19 11:12 DC Amino Acids/ Glycerin/ Electrolytes 1,000 ml @ 80 mls/hr [id number] 04/14/19 10:15 04/14/19 22:52 80 MLS/HR Aspirin (Children'S Aspirin) 81 mg DAILY 04/07/19 09:00 04/13/19 09:50 81 MG Atropine Sulfate (ATROPINE 0.5mg SYRINGE) 0.5 mg PRN Q5MIN PRN 04/12/19 11:00 Dexmedetomidine HCl 400 mcg/ Sodium Chloride 100 ml @ 0 mls/hr CONT PRN 04/12/19 11:00 04/13/19 03:30 3.7 MLS/HR Dextrose 250 ml PRN Q15MIN PRN 04/06/19 20:00 Dextrose (Dextrose 50%-Water Syringe) 12.5 gm PRN Q15MIN PRN 04/06/19 20:00 Diltiazem HCl (Cardizem) 30 mg Q8HRS 04/07/19 12:00 04/13/19 06:19 30 MG Enoxaparin Sodium (Lovenox 40mg Syringe) 40 mg Q24H 04/06/19 21:00 04/14/19 22:52 40 MG Etomidate (Amidate) 20 mg 1X ONCE 04/06/19 17:30 04/06/19 17:31 DC 04/06/19 19:47 20 MG Fentanyl Citrate (Fentanyl 600 Mcg/30 ml GOLF COURSE STARTER) 600 mcg STK-MED ONCE 04/11/19 08:03 04/13/19 09:29 DC Furosemide (Lasix) 40 mg 1X ONCE 04/14/19 10:30 04/14/19 10:31 DC 04/14/19 10:49 40 MG Info (CONTRAST GIVEN -- Rx MONITORING) 1 each PRN DAILY PRN 04/06/19 17:45 04/08/19 17:44 DC Insulin Human Lispro (HumaLOG) 0-7 UNITS Q6HRS 04/07/19 18:00 Iohexol (Omnipaque 350 Mg/ml) 75 ml 1X ONCE 04/06/19 17:45 04/06/19 17:46 DC 04/06/19 17:56 75 ML Levofloxacin/ Dextrose 100 ml @ 100 mls/hr Q24H 04/10/19 11:00 04/14/19 11:18 100 MLS/HR Linezolid/Dextrose 300 ml @ 300 mls/hr Q12HR 04/10/19 11:00 04/14/19 22:52 300 MLS/HR Lorazepam (Ativan) 0.5 mg HS 04/06/19 21:00 04/12/19 22:08 0.5 MG Metoprolol Tartrate (Lopressor Vial) 5 mg Q6HRS 04/14/19 00:00 04/15/19 05:51 5 MG Multi-Ingred Cream/Lotion/Oil/ Oint (Artificial Tears Eye Ointment) 1 valerie PRN Q1HR PRN 04/07/19 11:15 04/11/19 12:11 1 VALERIE Multivitamins (Thera M Plus) 1 tab DAILY 04/07/19 09:00 04/13/19 09:50 1 TAB Naloxone HCl (Narcan) 2 mg 1X ONCE 04/06/19 18:45 04/06/19 18:46 DC 04/06/19 19:47 2 MG Ondansetron HCl (Zofran) 8 mg PRN Q6HRS PRN 04/14/19 14:45 04/14/19 14:51 8 MG Pantoprazole Sodium (PROTONIX VIAL for IV PUSH) 40 mg DAILYAC 04/07/19 07:30 04/14/19 07:56 40 MG Potassium Bicarbonate (Potassium Effervescent Tablet) 20 meq 1X ONCE 04/08/19 14:30 04/08/19 14:31 DC 04/08/19 16:20 20 MEQ Potassium Chloride/Water 100 ml @ 100 mls/hr Q1H 04/14/19 11:00 04/14/19 14:59 DC 04/14/19 16:38 100 MLS/HR Propofol 100 ml @ 1.164 mls/ hr CONT PRN 04/07/19 02:15 04/12/19 22:08 9.311 MLS/HR Sodium Chloride 500 ml @ 500 mls/hr 1X PRN PRN 04/12/19 11:00 04/14/19 09:49 DC Succinylcholine Chloride (Anectine) 100 mg 1X ONCE 04/06/19 17:30 04/06/19 17:31 DC 04/06/19 19:47 100 MG Tamsulosin HCl (Flomax) 0.4 mg DAILY 04/07/19 09:00 04/13/19 09:50 0.4 MG Labs: Lab Laboratory Tests Test 04/14/19 12:57 04/14/19 17:40 04/15/19 01:46 Glucose (Fingerstick) 119 mg/dL (70-99) 106 mg/dL (70-99) 106 mg/dL (70-99) Micro sputum c/s neg Objective: Assessment: Nausea, vomiting with suspected aspiration.resolved Low-grade fever.resolved Leukocytosis - better Respiratory failure. Hypoglycemia. Autism. Hypertension. Benign prostatic hypertrophy. Multiple ANTIBIOTIC ALLERGIES: PCN, meropenem, cephalosporins. ? reaction SVT Dysphagia failed swallow evaluation Plan: Plan of Care Continue Zyvox and Levaquin ? allergy to all beta lactams,unable to get details f/u cultures Supportive care D/w nursing BROOK RIVAS MD Apr 15, 2019 07:07
--- NOTE | 2019-04-15 07:45 | RAD ---
Indication:On ventilation. TECHNIQUE:Portable AP chest X-ray COMPARISON: 04/14/2019. FINDINGS: Heart is normal in size. Mild bilateral interstitial opacities are seen with hazy opacity in the right lung base. No pneumothorax. Visualized bony thorax within normal limits. IMPRESSION: Mild interstitial pulmonary edema or atypical/viral infection. No significant change from previous exam. Electronically signed by: Ariel Mcmillan DO (04/15/2019 7:42 AM) [facility]
[2019-04-15] MEDS: IPRATRPIUM/ALBUTEROL 0.5/2.5MG 3 ML NEBU. NEB SCH ×3 (08:16→16:06)
[2019-04-15] MEDS: PANTOPRAZOLE IV PUSH 40 MG VIAL. IVP SCH (08:18)
[2019-04-15] MEDS: MULTIVITAMIN with MINERAL TABLET. PO SCH (08:19)
[2019-04-15] MEDS: ASPIRIN CHEWABLE 81 MG TABLET. PO SCH (08:19)
[2019-04-15] MEDS: TAMSULOSIN 0.4 MG CAP.ER.24H. PO SCH (08:19)
--- NOTE | 2019-04-15 09:41 | PDOC ---
PROGRESS NOTES Subjective Subjective no complaints Objective Objective Vital Signs Date Time Temp Pulse Resp B/P (MAP) Pulse Ox O2 Delivery O2 Flow Rate FiO2 04/15/19 08:26 Room Air 04/15/19 06:00 78 23 114/69 (84) 93 04/15/19 04:00 98.3 98.3 04/14/19 08:00 2.0 Intake and Output 04/15/19 06:59 Intake Total 2576.9 ml Output Total 2861 ml Balance -284.1 ml Intake Oral 0 ml IV Total 2576.9 ml Output Urine Total 2560 ml Stool Total 1 ml Emesis 300 ml # Bowel Movements 1 Physical Exam Abdomen: Soft Heart: Regular rate (SR), Normal S1, Normal S2, Other (2/6 systolic murmur to LLS border) Extremities: No cyanosis, No edema General: Other (sedated, intubated) HEENT: Atraumatic, Mucous membr. moist/pink Lungs: Other (intubated with vent, coarse lung sounds) MUSCULOSKELETAL: Osteoarthritic changes both hands Neuro: Other (sedated) Skin: No breakdown, No significant lesion COMMENT otot Diagnosis Problem List Problems Medical Problems: (1) Altered level of consciousness Status: Acute (2) BPH (benign prostatic hyperplasia) Status: Chronic (3) GERD (gastroesophageal reflux disease) Status: Chronic (4) HTN (hypertension) Status: Chronic (5) Hyperglycemia Status: Acute (6) Hypoglycemia Status: Acute (7) Metabolic encephalopathy Status: Acute (8) Pneumonia Status: Acute (9) Respiratory failure Status: Acute (10) SVT (supraventricular tachycardia) Status: Acute Assessment Assessment Problems Medical Problems: (1) Altered level of consciousness Status: Acute (2) BPH (benign prostatic hyperplasia) Status: Chronic (3) GERD (gastroesophageal reflux disease) Status: Chronic (4) HTN (hypertension) Status: Chronic (5) Hyperglycemia Status: Acute (6) Hypoglycemia Status: Acute Assessment/Plan:Ac resp failure on Vent, extubated 04/13/19 intermittent PSVT Hypotension resolved with fluids Pneumonia?Aspiration from seizures HYPOGLYCEMIA causing MINIMAL responsiveness, intubated for airway protection . HYPOTENSION, post intubation, responded to fluid . Seizures? PSVT GERD BPH HTN Plan: rehab consult extubated 04/13 iv lasix prn spoke with Dr Bañuelos speech consult pt/ot replace pot,3.4 today cxr improving cxr gela lung infiltrates iv antibiotics zyvox+levaquin id +pul+neuro consults duoneb qid tube feedings. EEG neg for seizures CTA noted no stroke or aneurysm. labs tomorrow spoke with RN DVT+GI prophylaxis Plan Plan of Care Problems Medical Problems: (1) Altered level of consciousness Status: Acute (2) BPH (benign prostatic hyperplasia) Status: Chronic (3) GERD (gastroesophageal reflux disease) Status: Chronic (4) HTN (hypertension) Status: Chronic (5) Hyperglycemia Status: Acute (6) Hypoglycemia Status: Acute (7) Metabolic encephalopathy Status: Acute (8) Pneumonia Status: Acute (9) Respiratory failure Status: Acute (10) SVT (supraventricular tachycardia) Status: Acute Comment Review of Relevant I have reviewed the following items aden (where applicable) has been applied. Labs Laboratory Tests Test 04/14/19 12:57 04/14/19 17:40 04/15/19 01:46 Glucose (Fingerstick) 119 mg/dL (70-99) 106 mg/dL (70-99) 106 mg/dL (70-99) Microbiology 04/10/19 - Final, Resulted 04/10/19 - Final, Resulted 04/10/19 - Final, Resulted 04/10/19 Gram Stain Evaluation - Final, Resulted 04/10/19 Sputum Culture - Preliminary, Resulted 04/10/19 Sputum Result 1 - Final, Resulted 04/10/19 Blood Culture - Preliminary, Resulted NO GROWTH AFTER 4 DAYS Medications Current Medications Adenosine (Adenocard) 6 mg STK-MED ONCE IV ; Start 04/14/19 at 15:30; Stop at 15:30; Status DC Amino Acids/ Glycerin/ Electrolytes 1,000 ml @ 80 mls/hr [id number] IV Last administered on 04/14/19at 22:52; Start 04/14/19 at 10:15 Furosemide (Lasix) 40 mg 1X ONCE IVP Last administered on 04/14/19at 10:49; Start 04/14/19 at 10:30; Stop 04/14/19 at 10:31; Status DC Ondansetron HCl (Zofran) 8 mg PRN Q6HRS PRN IV NAUSEA/VOMITING Last administered on 04/14/19at 14:51; Start 04/14/19 at 14:45 Potassium Chloride/Water 100 ml @ 100 mls/hr Q1H IV Last administered on 04/14/19at 16:38; Start 04/14/19 at 11:00; Stop 04/14/19 at 14:59; Status DC Vitals/I & O Vital Sign - Last 24 Hours 04/14/19 04/14/19 04/14/19 04/14/19 10:00 11:00 11:39 12:00 Temp 99.1 99.1 Pulse 79 80 77 Resp 22 27 18 B/P (MAP) 101/70 (80) 106/71 (83) 102/68 (79) Pulse Ox 93 93 97 94 O2 Delivery Room Air Room Air Room Air Room Air 04/14/19 04/14/19 04/14/19 04/14/19 12:00 13:00 13:03 14:00 Pulse 86 86 86 Resp 22 B/P (MAP) 120/71 (87) 120/71 120/71 (87) Pulse Ox 95 95 O2 Delivery Room Air Room Air Room Air 04/14/19 04/14/19 04/14/19 04/14/19 15:00 15:36 16:00 16:00 Temp 97.6 97.6 Pulse 74 83 Resp 28 28 B/P (MAP) 103/67 (79) 92/65 (74) Pulse Ox 94 94 95 O2 Delivery Room Air Room Air Room Air Room Air 04/14/19 04/14/19 04/14/19 04/14/19 17:00 18:00 18:14 19:00 Pulse 77 80 76 80 Resp 24 26 26 B/P (MAP) 91/60 (70) 101/67 (78) 101/67 101/67 (78) Pulse Ox 96 91 91 O2 Delivery Room Air Room Air Room Air 04/14/19 04/14/19 04/14/19 04/14/19 19:56 20:00 20:00 21:00 Temp 97.4 97.4 Pulse 80 80 Resp 26 26 B/P (MAP) 101/67 (78) 101/67 (78) Pulse Ox 94 91 91 O2 Delivery Room Air Room Air Room Air Room Air 04/14/19 04/14/19 04/14/19 04/15/19 22:00 23:00 23:59 00:01 Temp 98.5 98.5 Pulse 75 79 82 Resp 24 24 27 B/P (MAP) 96/64 (75) 106/71 (83) 110/78 (89) Pulse Ox 91 95 93 O2 Delivery Room Air Room Air Room Air Room Air 04/15/19 04/15/19 04/15/19 04/15/19 01:00 02:00 02:00 03:00 Pulse 86 77 85 77 Resp 29 23 23 B/P (MAP) 122/76 (91) 105/74 (84) 122/76 105/74 (84) Pulse Ox 93 93 93 O2 Delivery Room Air Room Air Room Air 04/15/19 04/15/19 04/15/19 04/15/19 04:00 04:00 05:00 05:51 Temp 98.3 98.3 Pulse 89 84 89 Resp 30 25 B/P (MAP) 124/80 (95) 107/54 (71) 124/80 Pulse Ox 93 93 O2 Delivery Room Air Room Air Room Air 04/15/19 04/15/19 04/15/19 05:51 06:00 08:26 Pulse 83 78 Resp 23 B/P (MAP) 107/74 114/69 (84) Pulse Ox 93 O2 Delivery Room Air Room Air Intake and Output 04/14/19 04/14/19 04/15/19 14:59 22:59 06:59 Intake Total 500 ml 804.5 ml 1272.4 ml Output Total 1025 ml 911 ml 925 ml Balance -525 ml -106.5 ml 347.4 ml ROSALVA GOODWIN MD Apr 15, 2019 09:41
--- NOTE | 2019-04-15 11:02 | PDOC ---
PULMONARY PROGRESS NOTES Subjective extubated 04/13 Had SVT again this am doing well pulmonary felipe Vitals Vital Signs Date Time Temp Pulse Resp B/P (MAP) Pulse Ox O2 Delivery O2 Flow Rate FiO2 04/15/19 10:00 82 26 102/70 (81) 95 Room Air 04/15/19 09:00 98.4 98.4 04/14/19 08:00 2.0 Comments General: Alert, No acute distress HEENT: Other (nc at perrl nose clear orally intubated neck no lad no thyromegaly) Lungs: Other (few rhonchi) Cardiovascular: S1, S2 Abdomen: Soft, Non-tender, Other (no mass) Neuro Exam: Alert Extremities: Other (EDEMA) Skin: Warm Labs Laboratory Tests Test 04/13/19 12:55 04/14/19 04:35 04/14/19 12:57 04/14/19 17:40 O2 Saturation 96 % (92-99) Arterial Blood pH 7.46 (7.35-7.45) Arterial Blood pCO2 at Patient Temp 33 mmHg (35-46) Arterial Blood pO2 at Patient Temp 80 mmHg (65-108) Arterial Blood HCO3 23 mmol/L (21-28) Arterial Blood Base Excess 0 mmol/L (-3-3) FiO2 40 White Blood Count 9.7 x10^3/uL (4.0-11.0) Red Blood Count 3.51 x10^6/uL (4.30-5.70) Hemoglobin 10.9 g/dL (13.0-17.5) Hematocrit 31.7 % (39.0-53.0) Mean Corpuscular Volume 90 fL (79-100) Mean Corpuscular Hemoglobin 31 pg (25-35) Mean Corpuscular Hemoglobin Concent 34 g/dL (31-37) Red Cell Distribution Width 14.7 % (11.5-14.5) Platelet Count 255 x10^3/uL (140-400) Neutrophils (%) (Auto) 73 % (31-73) Lymphocytes (%) (Auto) 15 % (24-48) Monocytes (%) (Auto) 9 % (0-9) Eosinophils (%) (Auto) 2 % (0-3) Basophils (%) (Auto) 0 % (0-3) Neutrophils # (Auto) 7.1 x10^3/uL (1.8-7.7) Lymphocytes # (Auto) 1.5 x10^3/uL (1.0-4.8) Monocytes # (Auto) 0.9 x10^3/uL (0.0-1.1) Eosinophils # (Auto) 0.2 x10^3/uL (0.0-0.7) Basophils # (Auto) 0.0 x10^3/uL (0.0-0.2) Sodium Level 142 mmol/L (136-145) Potassium Level 3.4 mmol/L (3.5-5.1) Chloride Level 108 mmol/L (98-107) Carbon Dioxide Level 24 mmol/L (21-32) Anion Gap 10 (6-14) Blood Urea Nitrogen 14 mg/dL (8-26) Creatinine 0.7 mg/dL (0.7-1.3) Estimated GFR (Cockcroft-Gault) 110.9 Glucose Level 97 mg/dL (70-99) Calcium Level 8.0 mg/dL (8.5-10.1) Magnesium Level 2.0 mg/dL (1.8-2.4) Glucose (Fingerstick) 119 mg/dL (70-99) 106 mg/dL (70-99) Test 04/15/19 01:46 Glucose (Fingerstick) 106 mg/dL (70-99) Laboratory Tests Test 04/14/19 12:57 04/14/19 17:40 04/15/19 01:46 Glucose (Fingerstick) 119 mg/dL (70-99) 106 mg/dL (70-99) 106 mg/dL (70-99) Medications Active Scripts Medications Dose Route/Sig Max Daily Dose Days Date Category Pyridium (Phenazopyridine Hcl) 200 Mg Tablet 200 Mg PO TID 12/17/16 Rx Cipro (Ciprofloxacin Hcl) 250 Mg Tablet 1 Tab PO BID 12/17/16 Rx Ciprofloxacin Hcl 500 Mg Tablet 500 Mg PO BID 07/13/15 Rx Ativan (Lorazepam) 0.5 Mg Tablet 0.5 Mg PO HS 07/11/15 Reported Tamsulosin Hcl 0.4 Mg Cap.er.24h 0.4 Mg PO DAILY 05/08/15 Reported Multi-Day Vitamins (Multivitamin) 1 Each Tablet 1 Tab PO DAILY 04/17/15 Reported Tylenol (Acetaminophen) 325 Mg Tablet 2 Tab PO BID PRN 02/07/15 Reported Losartan Potassium 50 Mg Tablet 1 Tab PO DAILY 02/07/15 Reported Zantac (Ranitidine Hcl) 150 Mg Tablet 1 Tab PO DAILY 02/07/15 Reported Aspirin 81 Mg Tab.chew 1 Tab PO DAILY 02/07/15 Reported Comments reviewed cxr 04/14 improved CHF,right pleural effusion. still present. R>L. No pneumothorax. Impression . 1. Apo-nq-xaaibpet arrest.extubated 04/13 2. Respiratory failure secondary to above. 3. Hypoglycemia. resolved 4. History of autism. 5. Hypertension. 6. Benign prostatic hypertrophy. 7. METABOLIC ENCE POA, improved 8. SEIZURES 9. abnl cxr, aspiration pneumonitis vs CHF, IMPROVED AERATION POST DIURESIS 10. SVT Plan . cont nasal canula reviewed cxr, CHF mild, still has right effusion, on Abx per ID, prn lasix CONTINUE SUPPORT FOR NOW FOLLOW CARD INPUT DVT AND GI PROPH elevate hob cardiology rec reg SVT discussed w rn rt LILLI SAHU MD Apr 15, 2019 11:02
--- NOTE | 2019-04-15 11:36 | PDOC ---
CARDIO Progress Notes Date and Time Date of Service 04/15/2019 Time of Evaluation 0830 Subjective Subjective: No Chest Pain, No shortness of breath, No Palpitations Vitals Vitals Vital Signs Date Time Temp Pulse Resp B/P (MAP) Pulse Ox O2 Delivery O2 Flow Rate FiO2 04/15/19 10:00 82 26 102/70 (81) 95 Room Air 04/15/19 09:00 98.4 98.4 04/14/19 08:00 2.0 Weight Weight [ ] Input and Output Intake and Output Intake and Output 04/15/19 06:59 Intake Total 2576.9 ml Output Total 2861 ml Balance -284.1 ml Intake Oral 0 ml IV Total 2576.9 ml Output Urine Total 2560 ml Stool Total 1 ml Emesis 300 ml # Bowel Movements 1 Laboratory Labs Laboratory Tests Test 04/14/19 12:57 04/14/19 17:40 04/15/19 01:46 Glucose (Fingerstick) 119 mg/dL (70-99) 106 mg/dL (70-99) 106 mg/dL (70-99) Microbiology Micro Microbiology 04/10/19 - Final, Resulted 04/10/19 - Final, Resulted 04/10/19 - Final, Resulted 04/10/19 - Preliminary, Resulted 04/10/19 - Preliminary, Resulted 04/10/19 - Preliminary, Resulted 04/10/19 Gram Stain Evaluation - Final, Resulted 04/10/19 Sputum Culture - Final, Resulted 04/10/19 Sputum Result 1 - Final, Resulted 04/10/19 Blood Culture - Preliminary, Resulted NO GROWTH AFTER 4 DAYS Physical Exam HEENT: Neck Supple W Full Motion Chest: Symmetric LUNGS: Other (basilar crackles) Heart: S1S2, RRR (SR) Abdomen: Soft N/T, Other (soft) Extremities: No Edema Neurology: alert, follow commands Assessment Assessment 1. Acute respiratory failure: Better. post extubation 04/13 Remains NPO due failed swallow 2. Metabolic encephalopathy: now alert and follows commands 3. Suspect syncope with noted hypoglycemia: seizure is another possibility as hypoglycemia would induce this 4. Hypoglycemic reaction: POA. no hx of DM 5. Hx of mental retardation/autism 6. 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 x1 burst yesterday requiring adenosis and x1 today with spontaneous conversion 8. Moderate /mild AI Recommendations 1. Currently on metoprolol IV. Replace K and Mg as warranted. Will DC metoprolol when PO allowed or NGT is present and replace with cardizem which he responded well. 2. [facility] transfer is pending. 3. Not a candidate for class 1C antiarrhythmic. Supportive care. NELI MARSHALL APRN Apr 15, 2019 11:36
[2019-04-15] MEDS: AMINO AC 3%/ELECTROLYTE/GLYCER 1,000 ML IV SCH (12:02)
--- NOTE | 2019-04-15 13:47 | SNU/HH DC ---
DISCHARGE ORDERS DISCHARGE INFORMATION: DISCHARGE DATE: Apr 15, 2019 FINAL DIAGNOSIS Problems Medical Problems: (1) Altered level of consciousness Status: Acute (2) BPH (benign prostatic hyperplasia) Status: Chronic (3) GERD (gastroesophageal reflux disease) Status: Chronic (4) HTN (hypertension) Status: Chronic (5) Hyperglycemia Status: Acute (6) Hypoglycemia Status: Acute (7) Metabolic encephalopathy Status: Acute (8) Pneumonia Status: Acute (9) Respiratory failure Status: Acute (10) SVT (supraventricular tachycardia) Status: Acute CONDITION ON DISCHARGE: Stable CODE STATUS: Code Status: Full HALFWAY: SNF STAY <30 DAYS: Yes POST DISCHARGE ORDERS: ACTIVITY ORDERS: Activity as tolerated WEIGHT BEARING STATUS: No restrictions TREATMENT/EQUIPMENT ORDERS: ADAPTIVE EQUIPMENT NEEDED: None DISCHARGE MEDICATIONS: Home Meds Active Scripts Phenazopyridine Hcl (PYRIDIUM) 200 Mg Tablet, 200 MG PO TID, #6 TAB Prov:LISA MORRIS MD 12/17/16 Ciprofloxacin Hcl (CIPRO) 250 Mg Tablet, 1 TAB PO BID, #10 TAB Prov:LISA MORRIS MD 12/17/16 Ciprofloxacin Hcl (CIPROFLOXACIN HCL) 500 Mg Tablet, 500 MG PO BID, #10 TAB Prov:LEO CHEUNG MD 07/13/15 Reported Medications Lorazepam (ATIVAN) 0.5 Mg Tablet, 0.5 MG PO HS, TAB 07/11/15 Tamsulosin Hcl (TAMSULOSIN HCL) 0.4 Mg Cap.er.24h, 0.4 MG PO DAILY, TAB 05/08/15 Multivitamin (MULTI-DAY VITAMINS) 1 Each Tablet, 1 TAB PO DAILY, #30 TAB 04/17/15 Acetaminophen (TYLENOL) 325 Mg Tablet, 2 TAB PO BID PRN for PAIN, #30 TAB 02/07/15 Losartan Potassium (LOSARTAN POTASSIUM) 50 Mg Tablet, 1 TAB PO DAILY, #30 TAB 5 Refills 02/07/15 Ranitidine Hcl (ZANTAC) 150 Mg Tablet, 1 TAB PO DAILY, #60 TAB 3 Refills 02/07/15 Aspirin (ASPIRIN) 81 Mg Tab.chew, 1 TAB PO DAILY, #30 TAB 3 Refills 02/07/15 ROSALVA GOODWIN MD Apr 15, 2019 13:47
--- NOTE | 2019-04-15 14:40 | NUR ---
SS following up with discharge planning. Discharge order received for discharge to [facility]. Per pt's RN, pt not ready for discharge. Pt's RN paged physician and is awaiting return call at this time. Pt's RN reported that he would contact SS and update once he has spoken with physician.
--- NOTE | 2019-04-15 15:31 | PDOC ---
PROGRESS NOTES Assessment Problems Medical Problems: (1) Altered level of consciousness Status: Acute (2) BPH (benign prostatic hyperplasia) Status: Chronic (3) GERD (gastroesophageal reflux disease) Status: Chronic (4) HTN (hypertension) Status: Chronic (5) Hyperglycemia Status: Acute (6) Hypoglycemia Status: Acute (7) Metabolic encephalopathy Status: Acute (8) Pneumonia Status: Acute (9) Respiratory failure Status: Acute (10) SVT (supraventricular tachycardia) Status: Acute Metabolic encephalopathy. Respiratory failure. Seizure or seizure like episode, provoked, EEG on 04/08/19: Encephalopathy. Hypoglycemia, glucose level 20. Hyperglycemia, glucose level 350. Intellectual disability. Plan Treat medical diseases. Ativan 1 mg IV PRN q4h if has further seizures. Holding on adding anticonvulsant Agree with discharge plans Subjective none Objective Vital Signs Date Time Temp Pulse Resp B/P (MAP) Pulse Ox O2 Delivery O2 Flow Rate FiO2 04/15/19 14:00 72 29 109/71 (84) 95 Room Air 04/15/19 12:00 98.4 98.4 04/14/19 08:00 2.0 Intake and Output 04/15/19 07:00 Intake Total 2576.9 ml Output Total 2811 ml Balance -234.1 ml Intake Oral 0 ml IV Total 2576.9 ml Output Urine Total 2510 ml Stool Total 1 ml Emesis 300 ml # Bowel Movements 1 PHYSICAL EXAM Smiles, follows commands, nonverbal (autistic at baseline) PERRL. EOMI. CN: no focal findings. Muscle tone: normal. Muscle strength: 3-4/5 DTR: 1+ Plantar reflex: silent Gait: not examined in bed. Sensory exam: no abnormal findings. Cerebellar: not cooperative Review of Relevant I have reviewed the following items aden (where applicable) has been applied. Labs Laboratory Tests Test 04/14/19 04:35 04/14/19 12:57 04/14/19 17:40 04/15/19 01:46 White Blood Count 9.7 x10^3/uL (4.0-11.0) Red Blood Count 3.51 x10^6/uL (4.30-5.70) Hemoglobin 10.9 g/dL (13.0-17.5) Hematocrit 31.7 % (39.0-53.0) Mean Corpuscular Volume 90 fL (79-100) Mean Corpuscular Hemoglobin 31 pg (25-35) Mean Corpuscular Hemoglobin Concent 34 g/dL (31-37) Red Cell Distribution Width 14.7 % (11.5-14.5) Platelet Count 255 x10^3/uL (140-400) Neutrophils (%) (Auto) 73 % (31-73) Lymphocytes (%) (Auto) 15 % (24-48) Monocytes (%) (Auto) 9 % (0-9) Eosinophils (%) (Auto) 2 % (0-3) Basophils (%) (Auto) 0 % (0-3) Neutrophils # (Auto) 7.1 x10^3/uL (1.8-7.7) Lymphocytes # (Auto) 1.5 x10^3/uL (1.0-4.8) Monocytes # (Auto) 0.9 x10^3/uL (0.0-1.1) Eosinophils # (Auto) 0.2 x10^3/uL (0.0-0.7) Basophils # (Auto) 0.0 x10^3/uL (0.0-0.2) Sodium Level 142 mmol/L (136-145) Potassium Level 3.4 mmol/L (3.5-5.1) Chloride Level 108 mmol/L (98-107) Carbon Dioxide Level 24 mmol/L (21-32) Anion Gap 10 (6-14) Blood Urea Nitrogen 14 mg/dL (8-26) Creatinine 0.7 mg/dL (0.7-1.3) Estimated GFR (Cockcroft-Gault) 110.9 Glucose Level 97 mg/dL (70-99) Calcium Level 8.0 mg/dL (8.5-10.1) Magnesium Level 2.0 mg/dL (1.8-2.4) Glucose (Fingerstick) 119 mg/dL (70-99) 106 mg/dL (70-99) 106 mg/dL (70-99) Test 04/15/19 12:04 Glucose (Fingerstick) 96 mg/dL (70-99) Laboratory Tests Test 04/14/19 17:40 04/15/19 01:46 04/15/19 12:04 Glucose (Fingerstick) 106 mg/dL (70-99) 106 mg/dL (70-99) 96 mg/dL (70-99) Microbiology 04/10/19 - Final, Resulted 04/10/19 - Final, Resulted 04/10/19 - Final, Resulted 04/10/19 - Preliminary, Resulted 04/10/19 - Preliminary, Resulted 04/10/19 - Preliminary, Resulted 04/10/19 Gram Stain Evaluation - Final, Resulted 04/10/19 Sputum Culture - Final, Resulted 04/10/19 Sputum Result 1 - Final, Resulted 04/10/19 Blood Culture - Final, Complete NO GROWTH AFTER 5 DAYS Medications Current Medications Etomidate (Amidate) 20 mg 1X ONCE IV Last administered on 04/06/19at 19:47; Start 04/06/19 at 17:30; Stop 04/06/19 at 17:31; Status DC Succinylcholine Chloride (Anectine) 100 mg 1X ONCE IV Last administered on 04/06/19at 19:47; Start 04/06/19 at 17:30; Stop 04/06/19 at 17:31; Status DC Propofol 50 ml @ As Directed STK-MED ONCE IV ; Start 04/06/19 at 17:27; Stop 04/06/19 at 17:28; Status DC Iohexol (Omnipaque 350 Mg/ml) 75 ml 1X ONCE IV Last administered on 04/06/19at 17:56; Start 04/06/19 at 17:45; Stop 04/06/19 at 17:46; Status DC Info (CONTRAST GIVEN -- Rx MONITORING) 1 each PRN DAILY PRN MC SEE COMMENTS; Start 04/06/19 at 17:45; Stop 04/08/19 at 17:44; Status DC Sodium Chloride 1,000 ml @ 1,000 mls/hr 1X ONCE IV Last administered on 04/06/19at 19:47; Start 04/06/19 at 18:00; Stop 04/06/19 at 18:59; Status DC Propofol 50 ml @ 1.191 mls/ hr 1X ONCE IV Last administered on 04/06/19at 19:47; Start 04/06/19 at 18:30; Stop 04/08/19 at 07:31; Status DC Naloxone HCl (Narcan) 2 mg STK-MED ONCE .ROUTE ; Start 04/06/19 at 18:38; Stop 04/06/19 at 18:38; Status DC Naloxone HCl (Narcan) 2 mg 1X ONCE IV Last administered on 04/06/19at 19:47; Start 04/06/19 at 18:45; Stop 04/06/19 at 18:46; Status DC Sodium Chloride 1,000 ml @ 125 mls/hr Q8H IV Last administered on 04/07/19at 08:28; Start 04/06/19 at 19:00; Stop 04/07/19 at 17:17; Status DC Pantoprazole Sodium (PROTONIX VIAL for IV PUSH) 40 mg DAILYAC IVP Last administered on 04/15/19 08:19; Start 04/07/19 at 07:30 Enoxaparin Sodium (Lovenox 40mg Syringe) 40 mg Q24H SQ Last administered on 04/14/19at 22:52; Start 04/06/19 at 21:00 Acetaminophen (Tylenol) 650 mg PRN BID PRN PO PAIN; Start 04/06/19 at 20:00 Aspirin (Children'S Aspirin) 81 mg DAILY PO Last administered on 04/13/19at 09:50; Start 04/07/19 at 09:00 Lorazepam (Ativan) 0.5 mg HS PO Last administered on 04/12/19at 22:08; Start 04/06/19 at 21:00 Tamsulosin HCl (Flomax) 0.4 mg DAILY PO Last administered on 04/13/19at 09:50; Start 04/07/19 at 09:00 Multivitamins (Thera M Plus) 1 tab DAILY PO Last administered on 04/13/19at 09:50; Start 04/07/19 at 09:00 Insulin Human Lispro (HumaLOG) 0-7 UNITS TIDWMEALS SQ ; Start 04/07/19 at 08:00; Stop 04/07/19 at 15:12; Status DC Dextrose (Dextrose 50%-Water Syringe) 12.5 gm PRN Q15MIN PRN IV SEE COMMENTS; Start 04/06/19 at 20:00 Dextrose 250 ml PRN Q15MIN PRN IV SEE COMMENTS; Start 04/06/19 at 20:00 Propofol 100 ml @ As Directed STK-MED ONCE IV ; Start 04/07/19 at 01:11; Stop 04/07/19 at 01:11; Status DC Propofol 100 ml @ 1.164 mls/ hr CONT PRN IV SEDATION Last administered on 04/12/19at 22:08; Start 04/07/19 at 02:15 Multi-Ingred Cream/Lotion/Oil/ Oint (Artificial Tears Eye Ointment) 1 valerie PRN Q1HR PRN OU DRY EYE Last administered on 04/11/19at 12:11; Start 04/07/19 at 11:15 Adenosine (Adenocard) 6 mg STK-MED ONCE IV ; Start 04/07/19 at 11:20; Stop 04/07/19 at 11:21; Status DC Adenosine (Adenocard) 6 mg 1X ONCE IV Last administered on 04/07/19at 11:24; Start 04/07/19 at 11:30; Stop 04/07/19 at 11:31; Status DC Diltiazem HCl (Cardizem) 30 mg Q8HRS PO Last administered on 04/13/19at 06:19; Start 04/07/19 at 12:00 Insulin Human Lispro (HumaLOG) 0-7 UNITS Q6HRS SQ ; Start 04/07/19 at 18:00 Sodium Chloride 1,000 ml @ 100 mls/hr Q10H IV Last administered on 04/11/19at 01:23; Start 04/07/19 at 17:15; Stop 04/11/19 at 10:18; Status DC Potassium Bicarbonate (Potassium Effervescent Tablet) 20 meq 1X ONCE PEG Last administered on 04/08/19at 16:20; Start 04/08/19 at 14:30; Stop 04/08/19 at 14:31; Status DC Linezolid/Dextrose 300 ml @ 300 mls/hr Q12HR IV Last administered on 04/15/19at 08:19; Start 04/10/19 at 11:00 Levofloxacin/ Dextrose 100 ml @ 100 mls/hr Q24H IV Last administered on 04/15/19at 08:19; Start 04/10/19 at 11:00 Albuterol/ Ipratropium (Duoneb) 3 ml RTQID NEB Last administered on 04/15/19at 12:12; Start 04/10/19 at 12:00 Albuterol/ Ipratropium (Duoneb) 3 ml 1X ONCE NEB ; Start 04/10/19 at 11:00; Stop 04/10/19 at 11:12; Status DC Fentanyl Citrate 30 ml @ 0 mls/hr CONT PRN IV SEE PROTOCOL Last administered on 04/12/19at 05:09; Start 04/11/19 at 07:15 Sodium Chloride 1,000 ml @ 125 mls/hr Q8H IV Last administered on 04/14/19at 03:07; Start 04/11/19 at 10:30; Stop 04/14/19 at 09:49; Status DC Sodium Chloride 500 ml @ 500 mls/hr 1X ONCE IV Last administered on 04/11/19at 10:34; Start 04/11/19 at 10:30; Stop 04/11/19 at 11:29; Status DC Sodium Chloride 500 ml @ 500 mls/hr 1X ONCE IV ; Start 04/11/19 at 11:00; Stop 04/11/19 at 11:59; Status DC Furosemide (Lasix) 40 mg 1X ONCE IVP Last administered on 04/12/19 11:06; Start 04/12/19 at 10:45; Stop 04/12/19 at 10:46; Status DC Dexmedetomidine HCl 400 mcg/ Sodium Chloride 100 ml @ 0 mls/hr CONT PRN IV sedation Last administered on 04/13/19at 03:30; Start 04/12/19 at 11:00 Sodium Chloride 500 ml @ 500 mls/hr 1X PRN PRN IV ANXIETY / AGITATION; Start 04/12/19 at 11:00; Stop 04/14/19 at 09:49; Status DC Atropine Sulfate (ATROPINE 0.5mg SYRINGE) 0.5 mg PRN Q5MIN PRN IV SEE COMMENTS; Start 04/12/19 at 11:00 Fentanyl Citrate (Fentanyl 600 Mcg/30 ml STABILIZER OPERATOR) 600 mcg STK-MED ONCE IV ; Start 04/11/19 at 08:03; Stop 04/13/19 at 09:29; Status DC Furosemide (Lasix) 40 mg 1X ONCE IVP Last administered on 04/13/19at 19:41; Start 04/13/19 at 11:30; Stop 04/13/19 at 11:31; Status DC Metoprolol Tartrate (Lopressor Vial) 5 mg Q6HRS IVP Last administered on 04/15/19at 12:02; Start 04/14/19 at 00:00 Adenosine (Adenocard) 6 mg STK-MED ONCE IV ; Start 04/14/19 at 08:36; Stop 04/14/19 at 08:36; Status DC Adenosine (Adenocard) 6 mg 1X ONCE IV Last administered on 04/14/19at 08:47; Start 04/14/19 at 09:15; Stop 04/14/19 at 09:16; Status DC Adenosine (Adenocard) 6 mg 1X ONCE IV ; Start 04/14/19 at 09:30; Stop 04/14/19 at 09:31; Status DC Amino Acids/ Glycerin/ Electrolytes 1,000 ml @ 80 mls/hr [id number] IV Last admin istered on 04/15/19at 12:02; Start 04/14/19 at 10:15 Furosemide (Lasix) 40 mg 1X ONCE IVP Last administered on 04/14/19at 10:49; Start 04/14/19 at 10:30; Stop 04/14/19 at 10:31; Status DC Potassium Chloride/Water 100 ml @ 100 mls/hr Q1H IV Last administered on 04/14/19at 16:38; Start 04/14/19 at 11:00; Stop 04/14/19 at 14:59; Status DC Ondansetron HCl (Zofran) 8 mg PRN Q6HRS PRN IV NAUSEA/VOMITING Last administered on 04/14/19at 14:51; Start 04/14/19 at 14:45 Adenosine (Adenocard) 6 mg STK-MED ONCE IV ; Start 04/14/19 at 15:30; Stop 04/14/19 at 15:30; Status DC Active Scripts Active Pyridium (Phenazopyridine Hcl) 200 Mg Tablet 200 Mg PO TID Cipro (Ciprofloxacin Hcl) 250 Mg Tablet 1 Tab PO BID Ciprofloxacin Hcl 500 Mg Tablet 500 Mg PO BID Reported Ativan (Lorazepam) 0.5 Mg Tablet 0.5 Mg PO HS Tamsulosin Hcl 0.4 Mg Cap.er.24h 0.4 Mg PO DAILY Multi-Day Vitamins (Multivitamin) 1 Each Tablet 1 Tab PO DAILY Tylenol (Acetaminophen) 325 Mg Tablet 2 Tab PO BID PRN Losartan Potassium 50 Mg Tablet 1 Tab PO DAILY Zantac (Ranitidine Hcl) 150 Mg Tablet 1 Tab PO DAILY Aspirin 81 Mg Tab.chew 1 Tab PO DAILY Vitals/I & O Vital Sign - Last 24 Hours 04/14/19 04/14/19 04/14/19 04/14/19 15:36 16:00 16:00 17:00 Temp 97.6 97.6 Pulse 83 77 Resp 28 24 B/P (MAP) 92/65 (74) 91/60 (70) Pulse Ox 94 95 96 O2 Delivery Room Air Room Air Room Air Room Air 04/14/19 04/14/19 04/14/19 04/14/19 18:00 18:14 19:00 19:56 Pulse 80 76 80 Resp B/P (MAP) 101/67 (78) 101/67 101/67 (78) Pulse Ox 91 91 94 O2 Delivery Room Air Room Air Room Air 04/14/19 04/14/19 04/14/19 04/14/19 20:00 20:00 21:00 22:00 Temp 97.4 97.4 Pulse 80 80 75 Resp 24 B/P (MAP) 101/67 (78) 101/67 (78) 96/64 (75) Pulse Ox 91 91 91 O2 Delivery Room Air Room Air Room Air Room Air 04/14/19 04/14/19 04/15/19 04/15/19 23:00 23:59 00:01 01:00 Temp 98.5 98.5 Pulse 79 82 86 Resp 24 27 29 B/P (MAP) 106/71 (83) 110/78 (89) 122/76 (91) Pulse Ox 95 93 93 O2 Delivery Room Air Room Air Room Air Room Air 04/15/19 04/15/19 04/15/19 04/15/19 02:00 02:00 03:00 04:00 Temp 98.3 98.3 Pulse 77 85 77 89 Resp 23 23 30 B/P (MAP) 105/74 (84) 122/76 105/74 (84) 124/80 (95) Pulse Ox 93 93 93 O2 Delivery Room Air Room Air Room Air 04/15/19 04/15/19 04/15/19 04/15/19 04:00 05:00 05:51 05:51 Pulse 84 89 83 Resp 25 B/P (MAP) 107/54 (71) 124/80 107/74 Pulse Ox 93 O2 Delivery Room Air Room Air 04/15/19 04/15/19 04/15/19 04/15/19 06:00 07:00 08:00 08:00 Pulse 78 78 78 Resp 23 26 28 B/P (MAP) 114/69 (84) 119/75 (90) 108/76 (87) Pulse Ox 93 93 94 O2 Delivery Room Air Room Air Room Air Room Air 04/15/19 04/15/19 04/15/19 04/15/19 08:26 09:00 10:00 11:00 Temp 98.4 98.4 Pulse 80 82 78 Resp 27 26 27 B/P (MAP) 103/73 (83) 102/70 (81) 114/74 (87) Pulse Ox 94 95 95 O2 Delivery Room Air Room Air Room Air Room Air 04/15/19 04/15/19 04/15/19 04/15/19 12:00 12:00 12:02 12:12 Temp 98.4 98.4 Pulse 78 80 Resp 30 B/P (MAP) 106/62 (77) 106/62 Pulse Ox 94 94 O2 Delivery Room Air Room Air Room Air 04/15/19 04/15/19 13:00 14:00 Pulse 72 72 Resp 31 29 B/P (MAP) 97/76 (83) 109/71 (84) Pulse Ox 95 95 O2 Delivery Room Air Room Air Intake and Output 04/14/19 04/14/19 04/15/19 15:00 23:00 07:00 Intake Total 500 ml 804.5 ml 1272.4 ml Output Total 1325 ml 761 ml 725 ml Balance -825 ml 43.5 ml 547.4 ml SALOME DEXTER MD Apr 15, 2019 15:31
--- NOTE | 2019-04-15 15:36 | NUR ---
SS following up with discharge planning. Discharge orders phoned and faxed to [facility], ; fax [phone]. Pt will discharge today and go to [facility] at 1800 via [facility]. Pt, pt's family, pt's physician assistant, and pt's RN notified.
--- NOTE | 2019-04-15 18:23 | NUR ---
TRANSFER NOTE: Patient transferred to [facility]. Patient left with his glasses, his right hearing aid, and his baseball. Report was given to nurse at [facility]. [facility] was updated about patient transfer. I tried to update [facility], but they are not available via phone after 5 pm. IV's in good working condition and left in.
--- NOTE | 2019-04-16 00:05 | CONS ---
DATE OF CONSULTATION: 04/15/2019 ATTENDING PHYSICIAN: Antonio Moran MD REASON FOR CONSULTATION: The patient was seen at the request of Dr. Moran for rehab evaluation. HISTORY OF PRESENT ILLNESS: This is a 73-year-old right-handed male, a [facility] resident, intellectually impaired, but usually gets up and walks around without any assistive devices, admitted on 04/06/2019 after seen in the Emergency Room via EMS, unresponsive patient, had his medication drop at his apartment. He admits that his medications, the staff noted in the evening that his newspaper is still outside his door, went and found him unresponsive in bed. He was noted with blood sugar of 20. He received dextrose intravenously. In the Emergency Room, his blood sugar was 311 and he did not have any meaningful change with his mental status. No evidence of any external trauma. He is not diabetic patient. The patient required intubation and he was extubated on 04/14/2019. The patient had CT scan of the brain, which revealed patchy hypodensity within the periventricular white matter, which is age indeterminate, may represent chronic ischemic change and sinus disease. CT angiogram revealed no large vessel occlusion, minimal patchy chronic plaque in the origin of right internal carotid artery without any stenosis, minimal calcified atherosclerotic plaque at the cavernous segments of right and left internal carotid arteries bilaterally without any stenosis. The patient is being evaluated for swallowing and physical therapy and occupational therapy following him and he requires significant help with bed mobility and transfers. The patient is having difficulty to advance his feet while standing up with physical therapy. He is being transferred to [facility] for continued care. The patient denies any pain. PHYSICAL EXAMINATION: NEUROLOGIC: Today revealed an elderly male. He is awake, sitting in bedside chair. He had some edema of his extremities. The patient moves all 4 extremities, does not follow commands well to do the proper muscle strength examination. He seemed to have equal perception of touch and pinprick sensation bilaterally. He has some tightness of bilateral heel cords. He had absent knee and ankle jerks. Again, he requires maximal help with any mobility. ASSESSMENT: An elderly male intellectually disabled with recent hospitalization for respiratory failure and unresponsiveness. The patient presents with some cognitive communication and swallowing deficits in association to mobility and self-care limitations, clinical evidence of peripheral neuropathy. RECOMMENDATIONS: Agree the plans for physical therapy, occupational therapy and speech pathology followup to help with his deficits and when medically stable, transfer to [facility] for continued care. Dr. Moran, I appreciate asking me to participate in the care of this interesting patient. I will be glad to follow him with you as needed for the rehabilitation. DELANEY MARQUEZ MD DR: ALYSSA/nicolasa JOB#: [id number] / [id number]
--- NOTE | 2019-04-16 16:58 | PDOC ---
Provider Note Provider Note Discharge summary dictated.#[id number] ROSALVA GOODWIN MD Apr 16, 2019 16:58
--- NOTE | 2019-04-16 23:04 | DS ---
DATE OF DISCHARGE: 04/15/2019 REASON FOR ADMISSION TO THE HOSPITAL: 1. Mental status changes. 2. Respiratory failure. 3. Hypoglycemia. CONSULTATIONS: Dr. Merrill Singer; Infectious Disease, Dr. Stephan Saenz; Dr. Peter Roberts, Pulmonology; Dr. Dixie Mathew, Neurology; Cardiology, Dr. Sterling. PROCEDURES DONE: 1. Echocardiogram. 2. CT head. 3. CT angiogram of the head. 4. Echocardiogram. HOSPITAL COURSE: The patient is a 74-year-old male. He lives in a detention with intellectual disability. He has a history of hypertension, GERD, BPH and he lives in a detention. The patient apparently unresponsive at a detention, was brought by the EMS and the patient is unresponsive on the bed. EMS found his blood sugar was 20, was given D50 and did not improve with D50 and the patient was intubated, was admitted to the ICU. CT head was negative. CT angiogram was negative for any bleed. The patient was on ventilator in the ICU. The patient was seen by Pulmonology. The patient had secretions, elevated white count, x-ray shows infiltrates, was treated for aspiration pneumonia with Zyvox and Levaquin. THE PATIENT IS ALLERGIC TO PENICILLIN AND CEPHALOSPORINS. The patient had echocardiogram shows moderate aortic stenosis. The patient also had developed paroxysmal supraventricular arrhythmias. The patient was given IV Cardizem. His condition improved and after a stay in the ICU on ventilator, the patient was able to be successfully extubated and the patient is being evaluated for LTAC facility at [facility]. The patient is discharged there. FINAL DIAGNOSES: 1. Acute respiratory failure. 2. Aspiration pneumonia. 3. Hypoglycemia. The patient is not a diabetic. 4. Mental retardation with autism. 5. Moderate aortic stenosis. 6. Paroxysmal supraventricular arrhythmias. PLAN: At this time, is to transfer to [facility]. Procalamine for nutrition. IV labetalol, metoprolol for cardiac arrhythmias and see if the patient's condition improves on broad-spectrum antibiotics. ROSALVA GOODWIN MD DR: RAMO/nicolasa JOB#: [id number] / [id number] ecc Dr. Mario
== END 2019-04-15 18:05 | DRG 207 ==
LOC: ER 16:58 → 1 WEST ICU 18:45
PROVIDERS: ADMIT Internal Medicine; ATTEND Internal Medicine
PROC: 5A1955Z Respiratory Ventilation, Greater than 96 Consecutive Hours (ICD-10-PCS; principal; 2019-04-06)
PROC: 0BH17EZ Insertion of Endotracheal Airway into Trachea, Via Natural or Artificial Opening (ICD-10-PCS; 2019-04-06)
DX: J96.00 Acute respiratory failure, unspecified whether with hypoxia or hypercapnia (principal); G93.41 Metabolic encephalopathy; I46.9 Cardiac arrest, cause unspecified; J69.0 Pneumonitis due to inhalation of food and vomit; F84.0 Autistic disorder; I47.1 Supraventricular tachycardia; F79 Unspecified intellectual disabilities; G62.9 Polyneuropathy, unspecified; I10 Essential (primary) hypertension; I35.0 Nonrheumatic aortic (valve) stenosis; I45.10 Unspecified right bundle-branch block; K21.9 Gastro-esophageal reflux disease without esophagitis; N40.0 Benign prostatic hyperplasia without lower urinary tract symptoms; R56.9 Unspecified convulsions; M19.90 Unspecified osteoarthritis, unspecified site; Z51.5 Encounter for palliative care; R13.10 Dysphagia, unspecified; E16.2 Hypoglycemia, unspecified; R73.9 Hyperglycemia, unspecified; Z88.0 Allergy status to penicillin; Z88.1 Allergy status to other antibiotic agents; Z88.8 Allergy status to other drugs, medicaments and biological substances; Z79.82 Long term (current) use of aspirin; Z87.440 Personal history of urinary (tract) infections
CPT/HCPCS: 31500; 36415; 36600; 70450; 70496; 70498; 71045; 74018; 80047; 80048; 80053; 80307; 81001; 82550; 82607; 82805; 82962; 83036; 83605; 83735; 83880; 84100; 84439; 84443; 84484; 85025; 85610; 87040; 87070; 87205; 93005; 93306; 94002; 94003; 94640; 94760; 95816; 96361; 96374; C9113; J0153; J0330; J1650; J1940; J1956; J2020; J2310; J2405; J2704; J3010; J3480; J3490; J7030; J7040; J7620; P9612; Q9967; 92526; 92610; 97530; 99291-25; G0378

== ENCOUNTER 2019-06-24 16:44 | Inpatient (IN) | payer MEDICARE, OTHER ==
[~2019-06-24] VITALS: Ht 167.6 cm; Wt 64.0 kg
[2019-06-24] VITALS (7 sets, daily range): BP systolic 75–93; BP diastolic 57–68
[~2019-06-24 16:44] MED LIST changes: +ENOX80DI3 SQ; +EPINEPHrine SYRINGE 1 MG/10 ML SYRINGE ONE; +FAMO20TA5 IVP; +FENTANYL IVP; +INSU100C SQ; +LORA1TAB PO; +MIRT15TA3 PO; +ONDA4TAB11 IVP; +OXYB5TAB10 PO; -OXYB5TAB7 PO
[2019-06-24] MEDS ORDERED: MORPHINE SULFATE 2 MG/ML VIAL. IV/SQ PRN (17:00)
[2019-06-24 17:16] LABS: BASO % 0 % (0-3); EOS % 0 % (0-3); HEMATOCRIT 33.5 % (39.0-53.0); HEMOGLOBIN 11.5 g/dL (13.0-17.5); LYMPH # 0.4 x10^3/uL (1.0-4.8); LYMPH % 2 % (24-48); MEAN CORPUSCULAR HEMOGLOBIN 30 pg (25-35); MEAN CORPUSCULAR HGB CONC 34 g/dL (31-37); MEAN CORPUSCULAR VOLUME 87 fL (79-100); MONO # 0.5 x10^3/uL (0.0-1.1); MONO % 3 % (0-9); NEUT # 16.5 x10^3/uL (1.8-7.7); NEUT % 95 % (31-73); PLATELET COUNT 399 x10^3/uL (140-400); RED BLOOD COUNT 3.86 x10^6/uL (4.30-5.70); RED CELL DISTRIBUTION WIDTH 14.9 % (11.5-14.5); WHITE BLOOD COUNT 17.4 x10^3/uL (4.0-11.0)
[2019-06-24 17:30] LABS: CALCIUM 8.3 mg/dL (8.5-10.1); CREATININE 1.1 mg/dL (0.7-1.3); GFR 65.8; POTASSIUM 4.1 mmol/L (3.5-5.1)
[2019-06-24 17:33] LABS: % BANDS 13 % (0-9); % BASOS 1 % (0-3); % LYMPHS 4 % (24-48); % MONOS 4 % (0-10); % SEGS 78 % (35-66); PLT ESTIMATE ADEQUATE (ADEQUATE)
[2019-06-24 17:34] LABS: ALBUMIN 2.6 g/dL (3.4-5.0); ALBUMIN/GLOBULIN RATIO 0.6 (1.0-1.7); MAGNESIUM 1.8 mg/dL (1.8-2.4); TOTAL BILIRUBIN 0.5 mg/dL (0.2-1.0); TOTAL PROTEIN 6.7 g/dL (6.4-8.2)
--- NOTE | 2019-06-24 17:44 | RAD ---
Exam: Chest one view INDICATION: Fever TECHNIQUE: Frontal view of the chest Comparisons: 04/15/2019 FINDINGS: The cardiomediastinal silhouette. Pulmonary vessels are prominent. The lung and pleural spaces are clear. IMPRESSION: Findings likely of mild pulmonary edema. Electronically signed by: Mike Torrez MD (06/24/2019 5:41 PM) [id number]
[2019-06-24 17:46] LABS: CREATINE KINASE 15 U/L (39-308)
[2019-06-24] MEDS ORDERED: ONDANSETRON PF 4 MG/2 ML VIAL. IV ONE (18:00)
[2019-06-24] MEDS ORDERED: FAMOTIDINE 20 MG/2 ML VIAL IVP ONE (18:00)
[2019-06-24] MEDS: IV NORMAL SALINE 1000ML BAG 1,000 ML IV SCH ×2 (18:03→18:31)
[2019-06-24] MEDS ORDERED: ONDANSETRON PF 4 MG/2 ML VIAL. IV PRN (18:30)
[2019-06-24] MEDS ORDERED: MORPHINE SULFATE 2 MG/ML VIAL. IV PRN (18:30)
[2019-06-24] MEDS ORDERED: IV NORMAL SALINE 1000ML BAG 1,000 ML IV ONE ×3 (18:30→21:45)
--- NOTE | 2019-06-24 18:44 | PHYS DOC ---
Past Medical History Past Medical History: Diabetes-Type II, Other Additional Past Medical Histor: RESP FAILURE,DYSPHAGIA,AUTISUM,URINARY RETENT ION (JORDANA RIBEIRO APRN) Past Surgical History: Other Additional Past Surgical Histo: G-TUBE PLACEMENT (JORDANA RIBEIRO APRN) Alcohol Use: None Drug Use: None (JORDANA RIBEIRO APRN) Critical Care Time Critical care time was 35 minutes exclusive of procedures. (KIM GUADARRAMA MD) Adult General Chief Complaint Chief Complaint: FEVER HPI HPI Patient is a 74 year old male with hx of Autism-mentally challenged, DMII, who presents today ED from a fpc with reports of a fever that was reported today. Patient had a temperature of 99.9 in the fpc. Patient is unable to give any history. snf reports patient was started yesterday on doxycycline for paronychia of the right index finger. The reports patient vomited once today. Patient has a feeding tube by the report he also tolerates pure diet. (JORDANA RIBEIRO APRN) Review of Systems Review of Systems Constitutional: Fever Eyes: Denies change in visual acuity, redness, or eye pain [] HENT: Denies nasal congestion or sore throat [] Respiratory: Denies cough or shortness of breath [] Cardiovascular: No additional information not addressed in HPI [] GI: Denies abdominal pain, nausea, vomiting, bloody stools or diarrhea [] : Denies dysuria or hematuria [] Musculoskeletal: Denies back pain or joint pain [] Integument: Right index finger paronychia Neurologic: Denies headache, focal weakness or sensory changes [] All other systems were reviewed and found to be within normal limits, except as documented in this note. (JORDANA RIBEIRO APRN) Current Medications Current Medications Current Medications Medications (Trade) Dose Ordered Sig/Jason Start Time Stop Time Status Last Admin Dose Admin Famotidine (Pepcid Vial) 20 mg 1X ONCE 06/24/19 18:00 06/24/19 18:01 DC 06/24/19 18:05 20 MG Levofloxacin/ Dextrose 150 ml @ 100 mls/hr 1X ONCE 06/24/19 17:00 06/24/19 18:29 DC 06/24/19 18:07 100 MLS/HR Morphine Sulfate (Morphine Sulfate) 2 mg PRN Q15MIN PRN 06/24/19 17:00 06/25/19 16:59 Ondansetron HCl (Zofran) 4 mg 1X ONCE 06/24/19 18:00 06/24/19 18:01 DC 06/24/19 18:04 4 MG Sodium Chloride 1,000 ml @ 1,920 mls/hr Q32M 06/24/19 16:58 06/24/19 17:58 DC 06/24/19 18:31 1,920 MLS/HR (KIM GUADARRAMA MD) Allergies Allergies Allergies Coded Allergies Type Severity Reaction Last Updated Verified Cephalosporins Allergy Intermediate 04/27/19 Yes Penicillins Allergy Intermediate 04/27/19 Yes carbamazepine Allergy Intermediate 04/27/19 Yes meropenem Allergy Intermediate 04/27/19 Yes penicillamine Allergy Intermediate 04/27/19 Yes I S O L A T I O N *CONTACT* Allergy Unknown 04/27/19 Yes (KIM GUADARRAMA MD) Physical Exam Physical Exam Constitutional: Well developed, well nourished, no acute distress, non-toxic appearance. [] HENT: Normocephalic, atraumatic, bilateral external ears normal, oropharynx moist, no oral exudates, nose normal. [] Eyes: PERRLA, EOMI, conjunctiva normal, no discharge. [] Neck: Normal range of motion, no tenderness, supple, no stridor. [] Cardiovascular:Heart rate regular rhythm, no murmur [] Lungs & Thorax: Bilateral breath sounds clear to auscultation [] Abdomen: G-tube on the left abdomen. Bowel sounds normal, soft, no tenderness, no masses, no pulsatile masses. [] Skin: Warm, dry, distal end of the right index finger with erythema and slight swelling around the nail bed consistent with paronychia. There is no fluctuance. Back: No tenderness, no CVA tenderness. [] Extremities: No tenderness, no cyanosis, no clubbing, ROM intact, no edema. [] Neurologic: Alert and oriented X 2-baseline, normal motor function, normal sensory function, no focal deficits noted. Cranial nerves II-XII intact. Psychologic: Affect normal, judgement normal, mood normal. [] (JORDANA RIBEIRO APRN) Current Patient Data Vital Signs Vital Signs Date Time Temp Pulse Resp B/P (MAP) Pulse Ox O2 Delivery O2 Flow Rate FiO2 06/24/19 18:00 100 33 97/64 (75) 88 Nasal Cannula 2.0 06/24/19 16:44 98.4 98.4 (KIM GUADARRAMA MD) Lab Values Laboratory Tests Test 06/24/19 17:00 White Blood Count 17.4 x10^3/uL (4.0-11.0) H Red Blood Count 3.86 x10^6/uL (4.30-5.70) L Hemoglobin 11.5 g/dL (13.0-17.5) L Hematocrit 33.5 % (39.0-53.0) L Mean Corpuscular Volume 87 fL (79-100) Mean Corpuscular Hemoglobin 30 pg (25-35) Mean Corpuscular Hemoglobin Concent 34 g/dL (31-37) Red Cell Distribution Width 14.9 % (11.5-14.5) H Platelet Count 399 x10^3/uL (140-400) Neutrophils (%) (Auto) 95 % (31-73) H Lymphocytes (%) (Auto) 2 % (24-48) L Monocytes (%) (Auto) 3 % (0-9) Eosinophils (%) (Auto) 0 % (0-3) Basophils (%) (Auto) 0 % (0-3) Neutrophils # (Auto) 16.5 x10^3/uL (1.8-7.7) H Lymphocytes # (Auto) 0.4 x10^3/uL (1.0-4.8) L Monocytes # (Auto) 0.5 x10^3/uL (0.0-1.1) Eosinophils # (Auto) 0.0 x10^3/uL (0.0-0.7) Basophils # (Auto) 0.0 x10^3/uL (0.0-0.2) Segmented Neutrophils % 78 % (35-66) H Band Neutrophils % 13 % (0-9) H Lymphocytes % 4 % (24-48) L Monocytes % 4 % (0-10) Basophils % 1 % (0-3) Platelet Estimate Adequate (ADEQUATE) Prothrombin Time 16.0 SEC (11.7-14.0) H Prothrombin Time INR 1.3 (0.8-1.1) H Activated Partial Thromboplast Time 31 SEC (24-38) Sodium Level 139 mmol/L (136-145) Potassium Level 4.1 mmol/L (3.5-5.1) Chloride Level 104 mmol/L (98-107) Carbon Dioxide Level 24 mmol/L (21-32) Anion Gap 11 (6-14) Blood Urea Nitrogen 17 mg/dL (8-26) Creatinine 1.1 mg/dL (0.7-1.3) Estimated GFR (Cockcroft-Gault) 65.8 BUN/Creatinine Ratio 15 (6-20) Glucose Level 111 mg/dL (70-99) H Lactic Acid Level 1.6 mmol/L (0.4-2.0) Calcium Level 8.3 mg/dL (8.5-10.1) L Magnesium Level 1.8 mg/dL (1.8-2.4) Total Bilirubin 0.5 mg/dL (0.2-1.0) Aspartate Amino Transferase (AST) 23 U/L (15-37) Alanine Aminotransferase (ALT) 39 U/L (16-63) Alkaline Phosphatase 72 U/L (46-116) Creatine Kinase 15 U/L (39-308) L Creatine Kinase MB (Mass) 0.6 ng/mL (0.0-3.6) Creatine Kinase MB Relative Index % (0-4) Troponin I Quantitative < 0.017 ng/mL (0.000-0.055) HJ-Leh-A-Type Natriuretic Peptide 4327 pg/mL (0-124) H Total Protein 6.7 g/dL (6.4-8.2) Albumin 2.6 g/dL (3.4-5.0) L Albumin/Globulin Ratio 0.6 (1.0-1.7) L Amylase Level 53 U/L (25-115) Lipase 75 U/L (73-393) Procalcitonin 0.58 ng/mL (0.00-0.10) H Laboratory Tests 06/24/19 17:00 Laboratory Tests 06/24/19 17:00 (KIM GUADARRAMA MD) EKG EKG [address] Easley sinus tachycardia heart rate 102 no STEMI[] (JORDANA RIBEIRO APRN) EKG Repeat EKG sinus tachycardia, heart rate 107, nonspecific ST depression appreciated there is no acute evidence of ST elevation [place] appreciated dictation time 1946 (IKM GUADARRAMA MD) Radiology/Procedures Radiology/Procedures []PROCEDURE: PORTABLE CHEST 1V Exam: Chest one view INDICATION: Fever TECHNIQUE: Frontal view of the chest Comparisons: 04/15/2019 FINDINGS: The cardiomediastinal silhouette. Pulmonary vessels are prominent. The lung and pleural spaces are clear. IMPRESSION: Findings likely of mild pulmonary edema. Electronically signed by: Mike Stark MD (06/24/2019 5:41 PM) [facility] [id number] DICTATED and SIGNED BY: MIKE STARK MD DATE: 06/24/191740 (JORDANA RIBEIRO APRN) Course & Med Decision Making Course & Med Decision Making Pertinent Labs and Imaging studies reviewed. (See chart for details) This is a 74-year-old male patient presenting to the ED today from the local fpc with reports of a fever and paronychia infection to the right index finger. He was already started on doxycycline yesterday. Patient is afebrile on arrival to the ED. Blood pressure 97/56, heart rate 107. Started on the Sepsis protocol with Levaquin and Vancomycin. CBC with a WBC of 17.4 and a left shift. Lactic is normal. CMP with no acute findings. Spoke with Dr. Jerome who accepted patient for admission. BP was noted to started going down 83/57 with a HR of 88 we will continue to do fluid resuscitation. (JORDANA RIBEIRO APRN) Course & Med Decision Making Patient with bradycardia and subsequent PEA. ACLS protocol initiated - see nursing notes/CODE sheet. Patient intubated with 7.5 ETT, 22 at the lip with good color change and equal breath sounds. Dr. Jerome contacted and updated. Ca rdiology consult placed. Repeat EKG pending (KIM GUADARRAMA MD) Dragon Disclaimer Dragon Disclaimer This electronic medical record was generated, in whole or in part, using a voice recognition dictation system. (JORDANA RIBEIRO APRN) Intubation Procedure Intub Indication: Respiratory failure Consent: Unable to give consent due to emergent nature. Medications Used: see nursing note Procedure: The patient was placed in the appropriate position. Intubation was performed via GlideScope 7.5 endotracheal tube. 22 at the lip. Initial c onfirmation of placement included bilateral breath sounds, tube fogging, adequate chest rise, adequate pulse oximetry reading. A chest x-ray to verify correct placement of the tube showed appropriate tube position. The patient tolerated the procedure well. Complications: none. (KIM GUADARRAMA MD) Departure Departure Impression: Primary Impression: Fever Additional Impressions: Paronychia of finger of right hand Sepsis PEA (Pulseless electrical activity) Acute respiratory failure Disposition: ADMITTED INPATIENT Condition: CRITICAL Referrals: KANU JEROME MD (PCP) Date and Time of Reassessment Date: Jul 11, 2015 Time: 16:25 (JORDANA RIBEIRO APRN) Date: Jul 11, 2015 (KIM GUADARRAMA MD) Fluid Challenge Is the fluid challenge complet: No IBW Target Volume Used: Yes BMI > 30: No (JORDANA RIBEIRO APRN) Vital Signs Vital Signs: Vital Signs Date Time Temp Pulse Resp B/P (MAP) Pulse Ox O2 Delivery O2 Flow Rate FiO2 06/24/19 18:00 100 33 97/64 (75) 88 Nasal Cannula 2.0 06/24/19 16:44 98.4 98.4 (KIM GUADARRAMA MD) Temperature Source: Oral (JORDANA RIBEIRO APRN) Temperature Source: Oral (KIM GUADARRAMA MD) Respirations Respiratory Effort: Normal Respiratory Pattern: Normal (JORDANA RIBEIRO APRN) Cardiovascular Pulse Rhythm: Regular Heart: Nml rate, reg. rhythm (JORDANA RIBEIRO APRN) Lung Sounds Breath Sounds: Clear (JORDANA RIBEIRO APRN) Capillary Refil Capillary Refill: Lt Hand < 3 seconds (JORDANA RIBEIRO APRN) Peripheral Pulse Pulse Location: Monitor Pulse Strength: Normal (2+) Pulse Assessment Method: Monitor (JORDANA RIBEIRO APRN) Pulse Assessment Method: Monitor (KIM GUADARRAMA MD) Integumentary Skin: Warm Skin Moisture: Clammy Skin Turgor: Normal Skin Color: warm Fingernail Color: WNL (JORDANA RIBEIRO APRN) Problem Qualifiers Primary Impression: Fever Fever type: unspecified Qualified Codes: R50.9 - Fever, unspecified Additional Impressions: Sepsis Sepsis type: sepsis due to unspecified organism Sepsis acute organ dysfunction status: unspecified Qualified Codes: A41.9 - Sepsis, unspecified organism Acute respiratory failure Respiratory failure complication: unspecified whether with hypoxia or hypercapnia Qualified Codes: J96.00 - Acute respiratory failure, unspecified whether with hypoxia or hypercapnia JORDANA RIBEIRO APRN Jun 24, 2019 18:44 KIM GUADARRAMA MD Jun 24, 2019 19:49
[2019-06-24] MEDS: MIDAZOLAM 100mg/100ml NS BAG 100 ML IV PRN (19:35)
[2019-06-24 19:41] LABS: BILIRUBIN,URINE NEGATIVE (NEG); CLARITY,URINE CLOUDY; COLOR,URINE YELLOW; NITRITE,URINE POSITIVE (NEG); PH,URINE 7.5; PROTEIN,URINE 30 mg/dL (NEG-TRACE)
[2019-06-24 19:44] LABS: BACTERIA,URINE MANY /HPF (0-FEW); RBC,URINE 0 /HPF (0-2); WBC,URINE >40 /HPF (0-4)
[2019-06-24 19:47] LABS: BARBITURATES NEG (NEG); BENZODIAZEPINES NEG (NEG); CANNABINOIDS NEG (NEG); COCAINE NEG (NEG); METHADONE NEG (NEG); OPIATES NEG (NEG); PHENCYCLIDINE NEG (NEG)
[2019-06-24 19:49] LABS: AMPHETAMINE/METHAMPHETAMINE NEG (NEG)
[2019-06-24] MEDS: NOREPINEPHRIN 8MG/250ML PREMIX 250 ML IV PRN (20:15)
[2019-06-24] MEDS ORDERED: ETOMIDATE 20 MG/10 ML VIAL. IV ONE (20:46)
[2019-06-24] MEDS ORDERED: MIDAZOLAM HCL/PF 5 MG/5 ML VIAL. ONE (20:47)
[2019-06-24] MEDS ORDERED: SUCCINYLCHOLINE 200 MG/10 ML VIAL. ONE (20:47)
--- NOTE | 2019-06-24 20:54 | RAD ---
Exam: Chest one view INDICATION: Post central line placement TECHNIQUE: Frontal view of the chest Comparisons: Same day x-ray FINDINGS: Interval placement of a right central line with tip in the SVC. No pneumothorax. Endotracheal tube with tip approximately 4 7 m above the akil. Enteric tube traverses below the diaphragm, distal extent not visualized. Heart size is normal. Pulmonary vessels are somewhat obscured. There is hazy opacities in the lungs bilaterally. There is a moderate right-sided pleural effusion. IMPRESSION: Lines and tubes described above. Electronically signed by: Mike Torrez MD (06/24/2019 8:52 PM) [facility]
[2019-06-24] MEDS ORDERED: LORA2ORA2 PO (22:25)
[2019-06-24] MEDS ORDERED: ACET325T21 PO (22:25)
[2019-06-24] MEDS ORDERED: SULF1TAB24 PO (22:25)
[2019-06-24] MEDS ORDERED: TERA2CAP3 PO (22:25)
[2019-06-24] MEDS ORDERED: APIX5TAB PO (22:25)
[2019-06-24] MEDS ORDERED: ONDA4TAB12 PO (22:25)
[2019-06-24] MEDS ORDERED: DEXT15DR5 EACHEYE (22:25)
[2019-06-24] MEDS ORDERED: DOXY100T PO (22:25)
[2019-06-24] MEDS ORDERED: VALP250S3 PO ×2 (22:25)
[2019-06-24] MEDS ORDERED: AMIO200T4 PO (22:25)
[2019-06-24] MEDS ORDERED: FAMO20TA5 PO (22:25)
[2019-06-24] MEDS ORDERED: BACI3.5O8 OD (22:25)
[2019-06-24] MEDS ORDERED: DILT60TA3 PO (22:25)
[2019-06-24] MEDS ORDERED: levOFLOXacin PER PHARMACY. MC PRN (22:45)
[2019-06-24 22:59] LABS: BASE EXCESS ABG -6 mmol/L (-3-3); CORRECTED PCO2 ABG 30 mmHg; CORRECTED PH ABG 7.39; CORRECTED PO2 ABG 311 mmHg; HCO3 ABG 18 mmol/L (21-28); SAT O2 ABG 99 % (92-99)
[2019-06-24 23:01] LABS: FIO2 ABG 70; PCO2 ABG 30 mmHg (35-46); PO2 ABG 312 mmHg (65-108)
[2019-06-24] MEDS ORDERED: VANCOMYCIN 1.75 GM in IV NORMAL SALINE 500ML BAG 500 ML IV ONE (23:15)
[2019-06-24] MEDS: CHLORHEXIDINE 0.12% 15 ML MOUTHWASH. MM SCH (23:19)
--- NOTE | 2019-06-24 23:24 | RAD ---
KUB, PORTABLE CHEST 1V Clinical History: Acute respiratory failure and NG tube placement One view chest: Technique: AP view of the chest was obtained at 06/24/2019 9:58 PM. Comparison: April 15, 2019. Findings: The heart is normal size. There is patchy opacities of lungs. The pulmonary vessels are not well seen. There is obscuration of right hemidiaphragm. There is an endotracheal tube with its tip below the clavicles 3.7 cm above the akil and an NG tube with its tip in the mid stomach. Impression: 1. Moderate bilateral infiltrates could be ARDS or pneumonia or pulmonary edema. This appears similar to the prior study. 2. Endotracheal tube and NG tube well-positioned. End impression 1 view lower abdomen pelvis KUB 10:06 PM There is an NG tube with its tip in this distal stomach. There is a gastric feeding tube in place. There is a normal bowel gas pattern. There is no obvious free air. IMPRESSION: NG tube well-positioned. Electronically signed by: Darrell Mar III, MD (06/24/2019 11:21 PM) [facility]
[2019-06-25] VITALS (27 sets, daily range): BP systolic 53–115; BP diastolic 41–90
[2019-06-25] MEDS: VANCOMYCIN PER PHARMACY MC PRN ×3 (00:27→10:56)
--- NOTE | 2019-06-25 00:48 | EKG ---
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
--- NOTE | 2019-06-25 00:49 | NUR ---
Pharmacy Vancomycin Dosing Note S:Consulted to monitor and dose vancomycin started 06/24/19. O:ARI CM is a 74 year old M with Sepsis HCAP . Height: 5 feet, 6 inches Weight: 64.855764 kg [place] Body Weight: 63.80 Adjusted Body Weight: 64.24 Dosing Weight: Actual Other Antibiotics: LEVOFLOXACIN 750MG IV Q24H LABS: Last BUN: 17 Last Creatinine: 1.1 Creatinine Clearance: 55 mL/min Last WBC: 17.4 Last Procalcitonin: Tmax (past 24 hours): Microbiology: I/O: Drug Levels: Last level: on at Last dose given at Vancomycin Dosing: Loading Dose: 1750 mg x1 06/24/190 Dosing Weight: Actual Target Trough: 15-20 A: Based on: Actual Wt and CrCl P: 1. 06/25/190 Vancomycin 1000 mg IV q24h 2. Follow up Trough level on 06/26/19 at 2300 3. Pharmacy will continue to monitor, follow and adjust therapy as needed. SHU OSUNA RPH, 06/25/19 0049 Signed: 06/25/19 at 0050 by SHU OSUNA RPH PHA
[2019-06-25] MEDS: MIDAZOLAM 100mg/100ml NS BAG 100 ML IV PRN ×2 (03:08→21:17)
[2019-06-25] MEDS: NOREPINEPHRIN 8MG/250ML PREMIX 250 ML IV PRN ×4 (03:08→21:06)
[2019-06-25 06:03] LABS: BASO % 0 % (0-3); EOS # 0.1 x10^3/uL (0.0-0.7); EOS % 1 % (0-3); HEMATOCRIT 31.5 % (39.0-53.0); HEMOGLOBIN 10.4 g/dL (13.0-17.5); LYMPH # 1.2 x10^3/uL (1.0-4.8); LYMPH % 8 % (24-48); MEAN CORPUSCULAR HEMOGLOBIN 29 pg (25-35); MEAN CORPUSCULAR HGB CONC 33 g/dL (31-37); MEAN CORPUSCULAR VOLUME 89 fL (79-100); MONO # 1.2 x10^3/uL (0.0-1.1); MONO % 8 % (0-9); NEUT # 13.4 x10^3/uL (1.8-7.7); NEUT % 84 % (31-73); PLATELET COUNT 456 x10^3/uL (140-400); RED BLOOD COUNT 3.55 x10^6/uL (4.30-5.70)
[2019-06-25 06:14] LABS: CALCIUM 7.3 mg/dL (8.5-10.1); CREATININE 0.9 mg/dL (0.7-1.3); GFR 82.9; POTASSIUM 3.9 mmol/L (3.5-5.1)
[2019-06-25 07:29] LABS: BASE EXCESS ABG -7 mmol/L (-3-3); HCO3 ABG 18 mmol/L (21-28); PCO2 ABG 34 mmHg (35-46); PO2 ABG 139 mmHg (65-108); SAT O2 ABG 98 % (92-99)
[2019-06-25 07:31] LABS: FIO2 ABG 40
--- NOTE | 2019-06-25 08:10 | PDOC ---
Infectious Disease Note Vital Sign Vital Signs Vital Signs Date Time Temp Pulse Resp B/P (MAP) Pulse Ox O2 Delivery O2 Flow Rate FiO2 06/25/19 07:21 100 Ventilator 06/25/19 06:00 72 18 111/69 (83) 06/25/19 04:00 99.3 99.3 06/24/19 19:33 40.0 Labs Lab Laboratory Tests Test 06/24/19 17:00 06/24/19 19:33 06/24/19 21:34 06/25/19 02:47 White Blood Count 17.4 x10^3/uL (4.0-11.0) Red Blood Count 3.86 x10^6/uL (4.30-5.70) Hemoglobin 11.5 g/dL (13.0-17.5) Hematocrit 33.5 % (39.0-53.0) Mean Corpuscular Volume 87 fL (79-100) Mean Corpuscular Hemoglobin 30 pg (25-35) Mean Corpuscular Hemoglobin Concent 34 g/dL (31-37) Red Cell Distribution Width 14.9 % (11.5-14.5) Platelet Count 399 x10^3/uL (140-400) Neutrophils (%) (Auto) 95 % (31-73) Lymphocytes (%) (Auto) 2 % (24-48) Monocytes (%) (Auto) 3 % (0-9) Eosinophils (%) (Auto) 0 % (0-3) Basophils (%) (Auto) 0 % (0-3) Neutrophils # (Auto) 16.5 x10^3/uL (1.8-7.7) Lymphocytes # (Auto) 0.4 x10^3/uL (1.0-4.8) Monocytes # (Auto) 0.5 x10^3/uL (0.0-1.1) Eosinophils # (Auto) 0.0 x10^3/uL (0.0-0.7) Basophils # (Auto) 0.0 x10^3/uL (0.0-0.2) Segmented Neutrophils % 78 % (35-66) Band Neutrophils % 13 % (0-9) Lymphocytes % 4 % (24-48) Monocytes % 4 % (0-10) Basophils % 1 % (0-3) Platelet Estimate Adequate (ADEQUATE) Prothrombin Time 16.0 SEC (11.7-14.0) Prothromb Time International Ratio 1.3 (0.8-1.1) Activated Partial Thromboplast Time 31 SEC (24-38) Sodium Level 139 mmol/L (136-145) Potassium Level 4.1 mmol/L (3.5-5.1) Chloride Level 104 mmol/L (98-107) Carbon Dioxide Level 24 mmol/L (21-32) Anion Gap 11 (6-14) Blood Urea Nitrogen 17 mg/dL (8-26) Creatinine 1.1 mg/dL (0.7-1.3) Estimated GFR (Cockcroft-Gault) 65.8 BUN/Creatinine Ratio 15 (6-20) Glucose Level 111 mg/dL (70-99) Lactic Acid Level 1.6 mmol/L (0.4-2.0) Calcium Level 8.3 mg/dL (8.5-10.1) Magnesium Level 1.8 mg/dL (1.8-2.4) Total Bilirubin 0.5 mg/dL (0.2-1.0) Aspartate Amino Transf (AST/SGOT) 23 U/L (15-37) Alanine Aminotransferase (ALT/SGPT) 39 U/L (16-63) Alkaline Phosphatase 72 U/L (46-116) Creatine Kinase 15 U/L (39-308) Creatine Kinase MB (Mass) 0.6 ng/mL (0.0-3.6) Creatine Kinase MB Relative Index % (0-4) Troponin I Quantitative < 0.017 ng/mL (0.000-0.055) MI-Hbu-N-Type Natriuretic Peptide 4327 pg/mL (0-124) Total Protein 6.7 g/dL (6.4-8.2) Albumin 2.6 g/dL (3.4-5.0) Albumin/Globulin Ratio 0.6 (1.0-1.7) Amylase Level 53 U/L (25-115) Lipase 75 U/L (73-393) Procalcitonin 0.58 ng/mL (0.00-0.10) Urine Collection Type Unknown Urine Color Yellow Urine Clarity Cloudy Urine pH 7.5 Urine Specific [place] 1.020 Urine Protein 30 mg/dL (NEG-TRACE) Urine Glucose (UA) Negative mg/dL (NEG) Urine Ketones (Stick) Trace mg/dL (NEG) Urine Blood Negative (NEG) Urine Nitrite Positive (NEG) Urine Bilirubin Negative (NEG) Urine Urobilinogen Dipstick 1.0 mg/dL (0.2 mg/dL) Urine Leukocyte Esterase Large (NEG) Urine RBC 0 /HPF (0-2) Urine WBC >40 /HPF (0-4) Urine Bacteria Many /HPF (0-FEW) Urine Mucus Mod /LPF Urine Opiates Screen Neg (NEG) Urine Methadone Screen Neg (NEG) Urine Barbiturates Neg (NEG) Urine Phencyclidine Screen Neg (NEG) Urine Amphetamine/Methamphetamine Neg (NEG) Urine Benzodiazepines Screen Neg (NEG) Urine Cocaine Screen Neg (NEG) Urine Cannabinoids Screen Neg (NEG) Urine Ethyl Alcohol Neg (NEG) O2 Saturation 99 % (92-99) Arterial Blood pH 7.38 (7.35-7.45) Arterial Blood pH (Temp corrected) 7.39 Arterial Blood pCO2 at Patient Temp 30 mmHg (35-46) Arterial Blood pCO2 (Temp correct) 30 mmHg Arterial Blood pO2 at Patient Temp 312 mmHg (65-108) Arterial Blood pO2 (Temp corrected) 311 mmHg Arterial Blood HCO3 18 mmol/L (21-28) Arterial Blood Base Excess -6 mmol/L (-3-3) FiO2 70 Glucose (Fingerstick) 127 mg/dL (70-99) Test 06/25/19 05:50 White Blood Count 16.0 x10^3/uL (4.0-11.0) Red Blood Count 3.55 x10^6/uL (4.30-5.70) Hemoglobin 10.4 g/dL (13.0-17.5) Hematocrit 31.5 % (39.0-53.0) Mean Corpuscular Volume 89 fL (79-100) Mean Corpuscular Hemoglobin 29 pg (25-35) Mean Corpuscular Hemoglobin Concent 33 g/dL (31-37) Red Cell Distribution Width 15.0 % (11.5-14.5) Platelet Count 456 x10^3/uL (140-400) Neutrophils (%) (Auto) 84 % (31-73) Lymphocytes (%) (Auto) 8 % (24-48) Monocytes (%) (Auto) 8 % (0-9) Eosinophils (%) (Auto) 1 % (0-3) Basophils (%) (Auto) 0 % (0-3) Neutrophils # (Auto) 13.4 x10^3/uL (1.8-7.7) Lymphocytes # (Auto) 1.2 x10^3/uL (1.0-4.8) Monocytes # (Auto) 1.2 x10^3/uL (0.0-1.1) Eosinophils # (Auto) 0.1 x10^3/uL (0.0-0.7) Basophils # (Auto) 0.0 x10^3/uL (0.0-0.2) Sodium Level 142 mmol/L (136-145) Potassium Level 3.9 mmol/L (3.5-5.1) Chloride Level 110 mmol/L (98-107) Carbon Dioxide Level 22 mmol/L (21-32) Anion Gap 10 (6-14) Blood Urea Nitrogen 14 mg/dL (8-26) Creatinine 0.9 mg/dL (0.7-1.3) Estimated GFR (Cockcroft-Gault) 82.9 Glucose Level 121 mg/dL (70-99) Calcium Level 7.3 mg/dL (8.5-10.1) Ammonia < 10 mcmol/L (11-34) Objective Assessment sepsis - POA 06/24 Leukocytosis UTI - POA R Index finger infection S/p PEA Multiple abx allergies Acute resp failure - intubated ? Pneumonia - POA H/o PEG tube infection H/o Afib H/o MRSA Plan Plan of Care Contact isolation for h/o MRSA Add Aztreonam/Flagyl and micafungin Cont Vanc D/c Levofloxacin Check sputum cult XRAY R hand F/u labs and cults Critically ill 35 mins D/w nursing Thank you # [id number] MARIA L AUGUSTINE MD Jun 25, 2019 08:10
--- NOTE | 2019-06-25 08:22 | PDOC2 ---
NELI MARSHALL FILLING HAND 06/25/19 0822: CARDIAC CONSULT DATE OF CONSULT Date of Consult DATE: 06/25/19 TIME: 08:12 REASON FOR CONSULT Reason for Consult: PEA REFERRING PHYSICIAN Referring Physician: Justus SOURCE Source: Chart review HISTORY OF PRESENT ILLNESS HISTORY OF PRESENT ILLNESS This is a 74 yo male admitted for complains of vomiting and fever. [place] [facility] [place] was in ED being treated when he went to bradycardia then went to PEA. 5min to ROSC and he received atropine initially then 1 dose of epi. He is nw intubated wtih mech vent. He is known to me from previous admission and notable for PSVT treated with cardizem. Presently he has sepsis with multiple active infection. PAST MEDICAL HISTORY Cardiovascular: HTN, Syncope, Aortic stenosis (moderate), Other (PSVT; chronic RBBB) CENTRAL NERVOUS SYSTEM: Other (Mental retardation) GI: GERD, Other (dysphagia) Hepatobiliary: No pertinent hx Psych: Other (autism) Musculoskeletal: Osteoarthritis Rheumatologic: No pertinent hx Infectious disease: Other (MRSA) Renal/: UTI, Benign prostatic enlarg. Endocrine: No pertinent hx, Other (hypoglycemia) PAST SURGICAL HISTORY Past Surgical History: Other (TURP, ligia fundoplication, Gtube placement) FAMILY HISTORY Family History: Family History Unknown SOCIAL HISTORY Smoke: No ALCOHOL: none Drugs: None Lives: Group Home CURRENT MEDICATIONS CURRENT MEDICATIONS Current Medications Medications (Trade) Dose Ordered Sig/Jason Route PRN Reason Start Time Stop Time Status Last Admin Dose Admin Sodium Chloride 1,000 ml @ 1,920 mls/hr Q32M IV 06/24/19 16:58 06/24/19 17:58 DC 06/24/19 18:31 Levofloxacin/ Dextrose 150 ml @ 100 mls/hr 1X ONCE IV 06/24/19 17:00 06/24/19 18:29 DC 06/24/19 18:07 Ondansetron HCl (Zofran) 4 mg 1X ONCE IV 06/24/19 18:00 06/24/19 18:01 DC 06/24/19 18:04 Famotidine (Pepcid Vial) 20 mg 1X ONCE IVP 06/24/19 18:00 06/24/19 18:01 DC 06/24/19 18:05 Sodium Chloride 1,000 ml @ 125 mls/hr 1X ONCE IV 06/24/19 18:30 11/1/19 02:29 DC 06/24/19 19:57 Chlorhexidine Gluconate (Peridex) 15 ml BID MM 06/24/19 21:00 06/24/19 23:19 Midazolam HCl 100 ml @ 1 mls/hr CONT PRN IV SEE PROTOCOL 06/24/19 19:45 06/25/19 03:08 Norepinephrine Bitartrate 250 ml @ 13.275 mls/ hr CONT PRN IV SEE I/O RECORD 06/24/19 20:15 06/25/19 03:08 Sodium Chloride 1,000 ml @ 1,000 mls/hr 1X ONCE IV 06/24/19 21:45 06/25/19 01:41 DC 06/24/19 19:41 Vancomycin HCl (Vanco Per Pharmacy) 1 each PRN DAILY PRN MC SEE COMMENTS 06/24/19 22:45 06/25/19 00:27 Fentanyl Citrate 30 ml @ 0 mls/hr CONT PRN IV SEE PROTOCOL 06/24/19 23:00 06/24/19 23:27 Vancomycin HCl 1.75 gm/Sodium Chloride 500 ml @ 250 mls/hr 1X ONCE IV 06/24/19 23:15 06/25/19 01:14 DC 06/24/19 23:31 ALLERGIES ALLERGIES: Coded Allergies: Cephalosporins (Verified Allergy, Intermediate, 04/27/19) Penicillins (Verified Allergy, Intermediate, 04/27/19) carbamazepine (Verified Allergy, Intermediate, 04/27/19) meropenem (Verified Allergy, Intermediate, 04/27/19) BETA LACTAMS penicillamine (Verified Allergy, Intermediate, 04/27/19) I S O L A T I O N *CONTACT* (Verified Allergy, Unknown, 04/27/19) mrsa + ROS Review of System unrelaibel, intubated PHYSICAL EXAM General: Other (sedated) HEENT: Atraumatic, Mucous membr. moist/pink Lungs: Other (basilar crackles; intubated/vent) Heart: Regular rate (SR), Normal S1, Normal S2, Other (4/6 systolic murmur to AICHA border) Abdomen: Soft, Other (G tube in place) Extremities: No cyanosis, No edema Skin: Other (right index finger wound) Neuro: Other (sedated) MUSCULOSKELETAL: Osteoarthritic changes both hands VITALS/I&O VITALS/I&O: Vital Signs Date Time Temp Pulse Resp B/P (MAP) Pulse Ox O2 Delivery O2 Flow Rate FiO2 06/25/19 07:21 100 Ventilator 06/25/19 06:00 72 18 111/69 (83) 06/25/19 04:00 99.3 99.3 06/24/19 19:33 40.0 I & O 06/24/19 06/24/19 06/25/19 15:00 23:00 07:00 Intake Total 3150 ml 1842.60 ml Output Total 275 ml 785 ml Balance 2875 ml 1057.60 ml LABS Lab: Laboratory Tests Test 06/24/19 17:00 06/24/19 19:33 06/24/19 21:34 06/25/19 02:47 White Blood Count 17.4 x10^3/uL (4.0-11.0) H Red Blood Count 3.86 x10^6/uL (4.30-5.70) L Hemoglobin 11.5 g/dL (13.0-17.5) L Hematocrit 33.5 % (39.0-53.0) L Mean Corpuscular Volume 87 fL (79-100) Mean Corpuscular Hemoglobin 30 pg (25-35) Mean Corpuscular Hemoglobin Concent 34 g/dL (31-37) Red Cell Distribution Width 14.9 % (11.5-14.5) H Platelet Count 399 x10^3/uL (140-400) Neutrophils (%) (Auto) 95 % (31-73) H Lymphocytes (%) (Auto) 2 % (24-48) L Monocytes (%) (Auto) 3 % (0-9) Eosinophils (%) (Auto) 0 % (0-3) Basophils (%) (Auto) 0 % (0-3) Neutrophils # (Auto) 16.5 x10^3/uL (1.8-7.7) H Lymphocytes # (Auto) 0.4 x10^3/uL (1.0-4.8) L Monocytes # (Auto) 0.5 x10^3/uL (0.0-1.1) Eosinophils # (Auto) 0.0 x10^3/uL (0.0-0.7) Basophils # (Auto) 0.0 x10^3/uL (0.0-0.2) Segmented Neutrophils % 78 % (35-66) H Band Neutrophils % 13 % (0-9) H Lymphocytes % 4 % (24-48) L Monocytes % 4 % (0-10) Basophils % 1 % (0-3) Platelet Estimate Adequate (ADEQUATE) Prothrombin Time 16.0 SEC (11.7-14.0) H Prothrombin Time INR 1.3 (0.8-1.1) H Activated Partial Thromboplast Time 31 SEC (24-38) Sodium Level 139 mmol/L (136-145) Potassium Level 4.1 mmol/L (3.5-5.1) Chloride Level 104 mmol/L (98-107) Carbon Dioxide Level 24 mmol/L (21-32) Anion Gap 11 (6-14) Blood Urea Nitrogen 17 mg/dL (8-26) Creatinine 1.1 mg/dL (0.7-1.3) Estimated GFR (Cockcroft-Gault) 65.8 BUN/Creatinine Ratio 15 (6-20) Glucose Level 111 mg/dL (70-99) H Lactic Acid Level 1.6 mmol/L (0.4-2.0) Calcium Level 8.3 mg/dL (8.5-10.1) L Magnesium Level 1.8 mg/dL (1.8-2.4) Total Bilirubin 0.5 mg/dL (0.2-1.0) Aspartate Amino Transferase (AST) 23 U/L (15-37) Alanine Aminotransferase (ALT) 39 U/L (16-63) Alkaline Phosphatase 72 U/L (46-116) Creatine Kinase 15 U/L (39-308) L Creatine Kinase MB (Mass) 0.6 ng/mL (0.0-3.6) Creatine Kinase MB Relative Index % (0-4) Troponin I Quantitative < 0.017 ng/mL (0.000-0.055) JE-Ehp-W-Type Natriuretic Peptide 4327 pg/mL (0-124) H Total Protein 6.7 g/dL (6.4-8.2) Albumin 2.6 g/dL (3.4-5.0) L Albumin/Globulin Ratio 0.6 (1.0-1.7) L Amylase Level 53 U/L (25-115) Lipase 75 U/L (73-393) Procalcitonin 0.58 ng/mL (0.00-0.10) H Urine Collection Type Unknown Urine Color Yellow Urine Clarity Cloudy Urine pH 7.5 Urine Specific [place] 1.020 Urine Protein 30 mg/dL (NEG-TRACE) Urine Glucose (UA) Negative mg/dL (NEG) Urine Ketones (Stick) Trace mg/dL (NEG) Urine Blood Negative (NEG) Urine Nitrite Positive (NEG) Urine Bilirubin Negative (NEG) Urine Urobilinogen Dipstick 1.0 mg/dL (0.2 mg/dL) Urine Leukocyte Esterase Large (NEG) Urine RBC 0 /HPF (0-2) Urine WBC >40 /HPF (0-4) Urine Bacteria Many /HPF (0-FEW) Urine Mucus Mod /LPF Urine Opiates Screen Neg (NEG) Urine Methadone Screen Neg (NEG) Urine Barbiturates Neg (NEG) Urine Phencyclidine Screen Neg (NEG) Urine Amphetamine/Methamphetamine Neg (NEG) Urine Benzodiazepines Screen Neg (NEG) Urine Cocaine Screen Neg (NEG) Urine Cannabinoids Screen Neg (NEG) Urine Ethyl Alcohol Neg (NEG) O2 Saturation 99 % (92-99) Arterial Blood pH 7.38 (7.35-7.45) Arterial Blood pH (Temp corrected) 7.39 Arterial Blood pCO2 at Patient Temp 30 mmHg (35-46) L Arterial Blood pCO2 (Temp correct) 30 mmHg Arterial Blood pO2 at Patient Temp 312 mmHg (65-108) H Arterial Blood pO2 (Temp corrected) 311 mmHg Arterial Blood HCO3 18 mmol/L (21-28) L Arterial Blood Base Excess -6 mmol/L (-3-3) L FiO2 70 Glucose (Fingerstick) 127 mg/dL (70-99) H Test 06/25/19 05:50 06/25/19 08:00 White Blood Count 16.0 x10^3/uL (4.0-11.0) H Red Blood Count 3.55 x10^6/uL (4.30-5.70) L Hemoglobin 10.4 g/dL (13.0-17.5) L Hematocrit 31.5 % (39.0-53.0) L Mean Corpuscular Volume 89 fL (79-100) Mean Corpuscular Hemoglobin 29 pg (25-35) Mean Corpuscular Hemoglobin Concent 33 g/dL (31-37) Red Cell Distribution Width 15.0 % (11.5-14.5) H Platelet Count 456 x10^3/uL (140-400) H Neutrophils (%) (Auto) 84 % (31-73) H Lymphocytes (%) (Auto) 8 % (24-48) L Monocytes (%) (Auto) 8 % (0-9) Eosinophils (%) (Auto) 1 % (0-3) Basophils (%) (Auto) 0 % (0-3) Neutrophils # (Auto) 13.4 x10^3/uL (1.8-7.7) H Lymphocytes # (Auto) 1.2 x10^3/uL (1.0-4.8) Monocytes # (Auto) 1.2 x10^3/uL (0.0-1.1) H Eosinophils # (Auto) 0.1 x10^3/uL (0.0-0.7) Basophils # (Auto) 0.0 x10^3/uL (0.0-0.2) Sodium Level 142 mmol/L (136-145) Potassium Level 3.9 mmol/L (3.5-5.1) Chloride Level 110 mmol/L (98-107) H Carbon Dioxide Level 22 mmol/L (21-32) Anion Gap 10 (6-14) Blood Urea Nitrogen 14 mg/dL (8-26) Creatinine 0.9 mg/dL (0.7-1.3) Estimated GFR (Cockcroft-Gault) 82.9 Glucose Level 121 mg/dL (70-99) H Calcium Level 7.3 mg/dL (8.5-10.1) L Ammonia < 10 mcmol/L (11-34) L Procalcitonin 1.48 ng/mL (0.00-0.10) H O2 Saturation 98 % (92-99) Arterial Blood pH 7.34 (7.35-7.45) L Arterial Blood pCO2 at Patient Temp 34 mmHg (35-46) L Arterial Blood pO2 at Patient Temp 139 mmHg (65-108) H Arterial Blood HCO3 18 mmol/L (21-28) L Arterial Blood Base Excess -7 mmol/L (-3-3) L FiO2 40 Laboratory Tests 06/24/19 17:00 06/25/19 05:50 Laboratory Tests 06/24/19 17:00 06/25/19 05:50 ECHOCARDIOGRAM ECHOCARDIOGRAM <Conclusion> The left ventricle is normal size. The left ventricular systolic function is normal and the ejection fraction is within normal range. The Ejection Fraction is 55-60%. There is mild concentric left ventricular hypertrophy. The aortic valve is calcified and displays decreased opening. Calculated aortic maximum pressure gradient of 44 mmHg and mean pressure gradient of 35 mmHg. Doppler and color-flow analysis revealed moderate aortic stenosis. Doppler and Color Flow revealed mild aortic regurgitation. Doppler and Color-flow revealed trace mitral regurgitation. Doppler and Color Flow revealed trace tricuspid regurgitation with an estimated PAP of 30 mmHg. DATE: 04/07/19 1421 ASSESSMENT/PLAN ASSESSMENT/PLAN 1. Sepsis/shock 2. PEA arrest: suspect due to above. Initially bradycardia treated with atropine then PEA treated with epi 5 min to ROSC. Maintaining SR 3. Acute respiratory failure: intubated/vent. per pulmonary 4. UTI/right index finger wound infection/Pneumonia/possible Gtube infection: ID following 5. Acute on chronic diastolic CHF 6. Hx of HTN and PSVT and chronic RBBB 7. Hx of autism and mental retardation 8. Hx of hypoglycemic reaction Recommendations 1. Pressor as warranted. Low dose lasix 2. Antibiotics per ID 3. Hold any BP meds 4. Limited TTE 5. Supportive care AIMEE MALDONADO MD 06/25/19 0381: CARDIAC CONSULT ASSESSMENT/PLAN ASSESSMENT/PLAN Patient seen and examined. Agree with BLADE BALANCER's assessment and plan. 2D echo showed EF 40% Tele did not show any VT/VF Continue vent management per Pulm Continue antibiotics per ID Ischemic workup once active issues resolve Thank you for your consultation NELI MARSHALL APRN Jun 25, 2019 08:22 AIMEE MALDONADO MD Jun 25, 2019 21:51
--- NOTE | 2019-06-25 08:55 | NUR ---
IP: Pt has a hx of + mrsa screen and urine in 2014. Current screen is pending. Pt to be in contact precautions until screen is verified. Continue decolonization with Nozin/CHG.
[2019-06-25] MEDS: CHLORHEXIDINE 0.12% 15 ML MOUTHWASH. MM SCH (09:00)
[2019-06-25] MEDS ORDERED: FUROSEMIDE 20 MG/2 ML VIAL. IVP ONE (09:15)
[2019-06-25] MEDS: AZTREONAM IV Push 2 GM VIAL. IVP SCH ×2 (09:37→17:51)
[2019-06-25] MEDS: MICAFUNGIN 100 MG in IV DEXTROSE 5% 100ML 100 ML IV SCH (09:37)
--- NOTE | 2019-06-25 09:45 | CARD ---
MR#: [id number] Date of Study: 06/25/2019 Ordering Physician: NELI MARSHALL, Referring Physician: NELI MARSHALL Tech: Coral Crowell GISELL APPROVED REPORT EXAM: LIMITED Two-dimensional and M-mode echocardiogram. Other Information Quality : AverageHR: 66bpm Rhythm : NSR INDICATION Follow up LVEF 2D DIMENSIONS IVSd1.3 (0.7-1.1cm)LVDd4.5 (3.9-5.9cm) PWd1.1 (0.7-1.1cm)LVDs3.5 (2.5-4.0cm) FS (%) 22.8 %SV42.6 ml LVEF(%)46.0 (>50%) LEFT VENTRICLE The left ventricle is normal size. There is mild concentric left ventricular hypertrophy. The systoli c function is mildly impaired. EF 40% There is global hypokinesis of the left ventricle. Septal motio n suggestive of conduction defect RIGHT VENTRICLE The right ventricle is normal size. There is normal right ventricular wall thickness. The right ventr icular systolic function is normal. ATRIA The left atrium size is normal. The right atrium size is normal. The interatrial septum is intact wit h no evidence for an atrial septal defect or patent foramen ovale as noted on 2-D or Doppler imaging. AORTIC VALVE Heavily calcified. Not well visualized. Cannot rule out aortic stenosis on this limited echo. GREAT VESSELS The aortic root is normal in size. The ascending aorta is normal in size. PERICARDIAL EFFUSION There is no evidence of significant pericardial effusion. Critical Notification Critical Value: No <Conclusion> The systolic function is mildly impaired. EF 40% There is global hypokinesis of the left ventricle. Septal motion suggestive of conduction defect Heavily calcified. Not well visualized. Cannot rule out aortic stenosis on this limited echo. Signed by : Franklin Rodney, Electronically Approved : 06/25/2019 09:45:27
--- NOTE | 2019-06-25 09:45 | CONS ---
DATE OF CONSULTATION: 06/25/2019 INFECTIOUS DISEASE CONSULTATION LOCATION: Patient's room is ICU 8. REQUESTING PHYSICIAN: Dr. Jerome. REASON FOR CONSULTATION: Questionable sepsis. HISTORY OF PRESENT ILLNESS: The patient is a 74-year-old gentleman with a known history of autism, previous respiratory failure and does have a PEG tube placed within the last month or two. He was brought to [facility] on the evening of the 31st secondary to fever that was reported temperature of 99.9. He was placed on doxycycline the day before for paronychia of the right index finger. The patient reported that he had vomited once as well. On arrival, he had a white count of 17.4. Then he had an episode of tachycardia and then developed bradycardia and subsequently went into PEA. ACLS protocol is going on for about 5 minutes or so. He was intubated and has been admitted to the Intensive Care Unit. Currently, he is sedated well. PAST MEDICAL HISTORY: Positive for autism, history of PEG tube infection, history of respiratory failure, gastroesophageal reflux disease, BPH, PEG tube cellulitis, atrial fibrillation, hypertension, UTIs, hematuria. PAST SURGICAL HISTORY: Positive for PEG tube placement, TUR and Ernesto fundoplication. REVIEW OF SYSTEMS: Unobtainable. ALLERGIES: LISTED TO CEPHALOSPORINS, PENICILLIN, MEROPENEM, UNCERTAIN WHAT HAPPENS WHEN HE TAKES THESE. SOCIAL HISTORY: He is a [facility] resident. FAMILY HISTORY: Noncontributory. MEDICATIONS: Include vancomycin, levofloxacin, Levophed, Pepcid, Amidate. Other meds are available and reviewed in the chart. PHYSICAL EXAMINATION: VITAL SIGNS: He has been afebrile since his arrival. Initial blood pressure was 97/56. It did drop down into the 60s/40s. Most recent temperature 99.3, pulse 72, respirations 18, blood pressure 111/69, satting 100% on the ventilator. CONSTITUTIONAL: He is intubated, he is sedated. HEENT: Pupils are small, reactive. Normal conjunctivae. NECK: Supple, no JVD. LUNGS: Decreased at the bases. HEART: S1, S2. ABDOMEN: Soft. PEG tube without signs of any complications. GENITOURINARY: Had a Ortega in place. EXTREMITIES: Without clubbing, cyanosis or gross edema. His right index finger, about the nail has some erythema, has some peeling, drying of the skin. There is no pus. Do not appear to be tender. He has good radial pulse, on ulnar decreased, but palpable. SKIN: Warm to touch without signs of rash. IVs he has a right IJ and a right hand peripheral IV, both appear to be clean. LABORATORY DATA: On arrival, white count was 17.4, today is 16, hemoglobin 10.4, platelets 456, neutrophils 84, lymphs are 8. Creatinine 0.9, glucose of 121. Ammonia was less than 10. Normal liver function study tests. Normal troponin. Procalcitonin of 0.58. ProBNP is 4327. Urinalysis concerning for a urinary tract infection. KUB was obtained. There is moderate bilateral infiltrates, could be ARDS, pneumonia with pulmonary edema, appear some on the chest x-ray. IMPRESSION: 1. Sepsis, present on admission 06/24. 2. Leukocytosis. 3. Urinary tract infection, present on admission. 4. Right index finger. 5. Status post pulseless electrical activity. 6. Multiple antibiotic allergies. 7. Acute respiratory failure, intubated. 8. Questionable pneumonia, present on admission. 9. History of PEG tube infection. 10. History of atrial fibrillation. 11. History of methicillin-resistant Staphylococcus aureus. RECOMMENDATIONS: 1. Contact isolation for history of methicillin-resistant Staphylococcus aureus. 2. We will add aztreonam, Flagyl and micafungin. We will continue the vancomycin. We will discontinue the levofloxacin. We will obtain a sputum culture, x-rays of right hand. Follow up labs and cultures. He is critically ill. We spent 35 minutes critical care time. This was discussed with nursing. Thank you for allowing me to participate in the patient's care. If you have any questions, please do not hesitate to contact me. MARIA L AUGUSTINE MD DR: MELISSA/nicolasa JOB#: [id number] / [id number]
--- NOTE | 2019-06-25 10:39 | PN ---
DATE: 06/25/2019 SUBJECTIVE: The patient is resting. He continued to be sedated and mechanically ventilated. He continues to be on Levophed, fentanyl as well as Versed. PHYSICAL EXAMINATION: GENERAL: When I examined him, he looked pale. No jaundice, cyanosis, or thyromegaly. No jugular venous distension. No lower limb edema. VITAL SIGNS: His heart rate was 70, blood pressure was 98/64, temperature was 98.5, respiratory rate was 16, and oxygen saturation was 100% on FiO2 of 40%. HEAD, EYES, EARS, NOSE AND THROAT: Showed normocephalic, atraumatic. He has orotracheal and orogastric tube in place. NECK: Supple. HEART: Showed normal first and second heart sounds. No gallop or murmur. CHEST: Clear to auscultation. No crepitation or rhonchi. ABDOMEN: Distended, soft, nontender with a gastrostomy tube in place. NEUROLOGIC: He is heavily sedated. His intake over the last 24 hours was 4990, output was 1060. LABORATORY DATA: His lab work this morning showed a white cell count of 16,000, hemoglobin 10.4, hematocrit 31.5, MCV 89, and platelet count 456,000 with normal manual differential. His chemistry showed that his serum sodium 142, potassium 3.9, chloride 110, bicarbonate 22, anion gap of 10, BUN 14, creatinine 0.9, estimated GFR was 83 mL per minute. His glucose 121. Calcium was 7.3. His ammonia was only less than 10. His procalcitonin was 1.48. ASSESSMENT: 1. Sepsis present on admission. 2. Leukocytosis. 3. Urinary tract infection. 4. Right index finger. 5. Status post pulseless electrical activity, cardiac arrest. 6. Acute respiratory failure requiring intubation and mechanical ventilation. The patient has questionable pneumonia that was present on admission. 7. Dysphagia, status post surgical placement of a percutaneous endoscopic gastrostomy tube. 8. History of atrial fibrillation, currently rate controlled, well anticoagulated. 9. Has history of methicillin-resistant Staphylococcus aureus. Plan is to continue with aztreonam, Flagyl, and micafungin as well as vancomycin. His Levaquin was discontinued. The patient was seen by the Cardiology team and has had an echocardiogram done, which showed that the patient has systolic functions mildly impaired with ejection fraction 40%. He has global hypokinesis of the left ventricle septal motion suggestive of conduction defect, heavily calcified, not well visualized, cannot rule out aortic stenosis on this limited echo. KANU GARCIA MD DR: JUDIE/nicolasa JOB#: [id number] / [id number]
--- NOTE | 2019-06-25 11:16 | HP ---
ADMIT DATE: 06/24/2019 HISTORY OF PRESENT ILLNESS: The patient is a 74-year-old male patient, a resident at [facility], [place] in [place], who apparently was noted to be febrile, hypotensive. The right index finger was infected and has had right index finger erythematous and swollen for which I did start him on doxycycline few days ago. Apparently, his condition has worsened and was transferred to [facility] Emergency Room where he was evaluated. The nurse practitioner called me stated that they started him on Levaquin and shortly thereafter, the patient went into bradycardia and pulseless electrical activity. Apparently, he was intubated and mechanically ventilated and was admitted to the ICU. He was extensively investigated in the Emergency Room, was found to have leukocytosis. His chemistry was essentially unremarkable. Urinalysis showed that he has large amount of leukocyte esterase, no rbc's, more than 40 wbc's and too many bacteria. His toxic screen was negative and his chest x-ray was perhaps consistent with either pulmonary edema versus pneumonia and he was admitted to continue mechanical ventilation as he is hypotensive, he required Levophed as well as sedation with fentanyl and Versed. PAST MEDICAL HISTORY: Significant for moderate aortic stenosis, paroxysmal supraventricular arrhythmia, mental retardation with autism, an episode of severe hypoglycemia, aspiration pneumonia, previous history of acute respiratory failure. PAST SURGICAL HISTORY: Significant for gastrostomy tube placement, surgically. FAMILY HISTORY: Unknown. SOCIAL HISTORY: He is currently residing at [facility] [place]. He does not smoke, drink alcohol or use any recreational drugs. ALLERGIES: He is allergic to CEPHALOSPORINS, PENICILLIN, CARBAMAZEPINE, MEROPENEM AND PENICILLAMINE. MEDICATIONS: He was on Bactrim-DS 1 tablet twice a day, doxycycline 100 mg twice a day, apixaban 5 mg twice a day, amiodarone 200 mg daily, terazosin 2 mg at bedtime, diltiazem 60 mg 4 times a day, aspirin 81 mg once a day, Tylenol 650 mg every 6 hours, valproic acid 500 mg at bedtime and valproic acid 250 mg daily. He was on mirtazapine 50 mg at bedtime, lorazepam 0.5 mg every 8 hours as needed, bacitracin ointment applied topically twice a day. He was on artificial tears eye drops 1 drop to both eyes 4 times a day, ondansetron 4 mg per feeding tube every 6 hours, famotidine 20 mg twice a day, and multivitamin 1 tablet once a day. PHYSICAL EXAMINATION: GENERAL: On arrival to the Emergency Room, the patient was somewhat pale, but no jaundice, cyanosis or thyromegaly. No jugular venous distention. No lower limb edema. VITAL SIGNS: His heart rate was 107, blood pressure was 97/56, temperature was 98.4, respiratory rate was 18 and oxygen saturation was 98% on 2 liters of oxygen. HEAD, EYES, EARS, NOSE AND THROAT: Normocephalic, atraumatic. NECK: Supple. HEART: Showed normal first and second heart sounds. No gallop or murmur. CHEST: Clear to auscultation. No crepitation or rhonchi. ABDOMEN: Distended, soft with gastrostomy tube in place. There is no tenderness. No guarding or rigidity. No organomegaly. All hernial orifice intact. Bowel sounds normal. NEUROLOGIC: He was alert, oriented x 2 at baseline. Normal motor function, normal sensory function, no focal deficits. Cranial nerves are grossly intact. LABORATORY DATA: Apparently, he has lab work done, which showed that his white cell count was 17,400, hemoglobin 11.5, hematocrit 33.5, MCV 87 and platelet count 399,000. His chemistry showed serum sodium to be 139, potassium 4.1, chloride 104, bicarbonate 24, anion gap of 11, BUN 17, creatinine 1.1, estimated GFR was 66 mL per minute. His glucose was 111, calcium was 8.3. Magnesium 1.8. Total bilirubin, AST, ALT, alkaline phosphatase were normal. Lactic acid was only 1.6. CK was 15. Beta natriuretic peptide was 4327. Total protein was 6.7, albumin was 2.6. Total serum amylase and lipase were normal and procalcitonin was initially 0.58 and has risen to 1.48. His prothrombin time was 16, INR 1.3, aPTT was 31. Urinalysis showed the urine was yellow, cloudy with a pH of 7.5, specific gravity 1.020. There is small amount of protein. The urine was negative for glucose, trace of ketones, negative for blood, positive for nitrite, negative for bilirubin. There was large amount of leukocyte esterase, no rbc's, more than 40 wbc's, and many bacteria. His toxic screen was negative. ASSESSMENT AND PLAN: In summary, this is a 74-year-old male patient who was admitted with sepsis, leukocytosis, has also right index finger infection, status post pulseless electrical activity, cardiac arrest and developed acute respiratory failure. He was intubated and mechanically ventilated. Plan is to continue with aztreonam, Flagyl and micafungin. Continue vancomycin. His Levaquin was discontinued. We will continue with sedation as well as Levophed and monitor response closely. KANU GARCIA MD DR: JUDIE/nicolasa JOB#: [id number] / [id number]
--- NOTE | 2019-06-25 11:33 | RAD ---
CHEST AP ONLY History: Acute respiratory failure. Technique: AP view the chest. Comparison: June 24, 2019. Findings: Small bilateral layering pleural effusions, unchanged. Interstitial and alveolar bilateral pulmonary opacities, unchanged. Unchanged endotracheal tube, enteric tube and right IJ central line. Unchanged heart size. No pneumothorax. Impression: 1. Diffuse interstitial and alveolar opacities, unchanged. 2. Bilateral layering pleural effusions, unchanged. Electronically signed by: Domingo Mejia DO (06/25/2019 11:30 AM) [facility]
--- NOTE | 2019-06-25 12:08 | PDOC ---
PULMONARY PROGRESS NOTES Vitals Vital Signs Date Time Temp Pulse Resp B/P (MAP) Pulse Ox O2 Delivery O2 Flow Rate FiO2 06/25/19 12:00 98.9 90 16 53/41 (45) 100 Ventilator 98.9 06/24/19 19:33 40.0 General: Alert, No acute distress HEENT: Other Lungs: Other Cardiovascular: S1, S2 Abdomen: Soft, Non-tender, Other Extremities: Other Skin: Warm Labs Laboratory Tests Test 06/24/19 17:00 06/24/19 19:33 06/24/19 21:34 06/25/19 02:47 White Blood Count 17.4 x10^3/uL (4.0-11.0) Red Blood Count 3.86 x10^6/uL (4.30-5.70) Hemoglobin 11.5 g/dL (13.0-17.5) Hematocrit 33.5 % (39.0-53.0) Mean Corpuscular Volume 87 fL (79-100) Mean Corpuscular Hemoglobin 30 pg (25-35) Mean Corpuscular Hemoglobin Concent 34 g/dL (31-37) Red Cell Distribution Width 14.9 % (11.5-14.5) Platelet Count 399 x10^3/uL (140-400) Neutrophils (%) (Auto) 95 % (31-73) Lymphocytes (%) (Auto) 2 % (24-48) Monocytes (%) (Auto) 3 % (0-9) Eosinophils (%) (Auto) 0 % (0-3) Basophils (%) (Auto) 0 % (0-3) Neutrophils # (Auto) 16.5 x10^3/uL (1.8-7.7) Lymphocytes # (Auto) 0.4 x10^3/uL (1.0-4.8) Monocytes # (Auto) 0.5 x10^3/uL (0.0-1.1) Eosinophils # (Auto) 0.0 x10^3/uL (0.0-0.7) Basophils # (Auto) 0.0 x10^3/uL (0.0-0.2) Segmented Neutrophils % 78 % (35-66) Band Neutrophils % 13 % (0-9) Lymphocytes % 4 % (24-48) Monocytes % 4 % (0-10) Basophils % 1 % (0-3) Platelet Estimate Adequate (ADEQUATE) Prothrombin Time 16.0 SEC (11.7-14.0) Prothromb Time International Ratio 1.3 (0.8-1.1) Activated Partial Thromboplast Time 31 SEC (24-38) Sodium Level 139 mmol/L (136-145) Potassium Level 4.1 mmol/L (3.5-5.1) Chloride Level 104 mmol/L (98-107) Carbon Dioxide Level 24 mmol/L (21-32) Anion Gap 11 (6-14) Blood Urea Nitrogen 17 mg/dL (8-26) Creatinine 1.1 mg/dL (0.7-1.3) Estimated GFR (Cockcroft-Gault) 65.8 BUN/Creatinine Ratio 15 (6-20) Glucose Level 111 mg/dL (70-99) Lactic Acid Level 1.6 mmol/L (0.4-2.0) Calcium Level 8.3 mg/dL (8.5-10.1) Magnesium Level 1.8 mg/dL (1.8-2.4) Total Bilirubin 0.5 mg/dL (0.2-1.0) Aspartate Amino Transf (AST/SGOT) 23 U/L (15-37) Alanine Aminotransferase (ALT/SGPT) 39 U/L (16-63) Alkaline Phosphatase 72 U/L (46-116) Creatine Kinase 15 U/L (39-308) Creatine Kinase MB (Mass) 0.6 ng/mL (0.0-3.6) Creatine Kinase MB Relative Index % (0-4) Troponin I Quantitative < 0.017 ng/mL (0.000-0.055) SW-Hhc-K-Type Natriuretic Peptide 4327 pg/mL (0-124) Total Protein 6.7 g/dL (6.4-8.2) Albumin 2.6 g/dL (3.4-5.0) Albumin/Globulin Ratio 0.6 (1.0-1.7) Amylase Level 53 U/L (25-115) Lipase 75 U/L (73-393) Procalcitonin 0.58 ng/mL (0.00-0.10) Urine Collection Type Unknown Urine Color Yellow Urine Clarity Cloudy Urine pH 7.5 Urine Specific [place] 1.020 Urine Protein 30 mg/dL (NEG-TRACE) Urine Glucose (UA) Negative mg/dL (NEG) Urine Ketones (Stick) Trace mg/dL (NEG) Urine Blood Negative (NEG) Urine Nitrite Positive (NEG) Urine Bilirubin Negative (NEG) Urine Urobilinogen Dipstick 1.0 mg/dL (0.2 mg/dL) Urine Leukocyte Esterase Large (NEG) Urine RBC 0 /HPF (0-2) Urine WBC >40 /HPF (0-4) Urine Bacteria Many /HPF (0-FEW) Urine Mucus Mod /LPF Urine Opiates Screen Neg (NEG) Urine Methadone Screen Neg (NEG) Urine Barbiturates Neg (NEG) Urine Phencyclidine Screen Neg (NEG) Urine Amphetamine/Methamphetamine Neg (NEG) Urine Benzodiazepines Screen Neg (NEG) Urine Cocaine Screen Neg (NEG) Urine Cannabinoids Screen Neg (NEG) Urine Ethyl Alcohol Neg (NEG) O2 Saturation 99 % (92-99) Arterial Blood pH 7.38 (7.35-7.45) Arterial Blood pH (Temp corrected) 7.39 Arterial Blood pCO2 at Patient Temp 30 mmHg (35-46) Arterial Blood pCO2 (Temp correct) 30 mmHg Arterial Blood pO2 at Patient Temp 312 mmHg (65-108) Arterial Blood pO2 (Temp corrected) 311 mmHg Arterial Blood HCO3 18 mmol/L (21-28) Arterial Blood Base Excess -6 mmol/L (-3-3) FiO2 70 Glucose (Fingerstick) 127 mg/dL (70-99) Test 06/25/19 05:50 06/25/19 08:00 White Blood Count 16.0 x10^3/uL (4.0-11.0) Red Blood Count 3.55 x10^6/uL (4.30-5.70) Hemoglobin 10.4 g/dL (13.0-17.5) Hematocrit 31.5 % (39.0-53.0) Mean Corpuscular Volume 89 fL (79-100) Mean Corpuscular Hemoglobin 29 pg (25-35) Mean Corpuscular Hemoglobin Concent 33 g/dL (31-37) Red Cell Distribution Width 15.0 % (11.5-14.5) Platelet Count 456 x10^3/uL (140-400) Neutrophils (%) (Auto) 84 % (31-73) Lymphocytes (%) (Auto) 8 % (24-48) Monocytes (%) (Auto) 8 % (0-9) Eosinophils (%) (Auto) 1 % (0-3) Basophils (%) (Auto) 0 % (0-3) Neutrophils # (Auto) 13.4 x10^3/uL (1.8-7.7) Lymphocytes # (Auto) 1.2 x10^3/uL (1.0-4.8) Monocytes # (Auto) 1.2 x10^3/uL (0.0-1.1) Eosinophils # (Auto) 0.1 x10^3/uL (0.0-0.7) Basophils # (Auto) 0.0 x10^3/uL (0.0-0.2) Sodium Level 142 mmol/L (136-145) Potassium Level 3.9 mmol/L (3.5-5.1) Chloride Level 110 mmol/L (98-107) Carbon Dioxide Level 22 mmol/L (21-32) Anion Gap 10 (6-14) Blood Urea Nitrogen 14 mg/dL (8-26) Creatinine 0.9 mg/dL (0.7-1.3) Estimated GFR (Cockcroft-Gault) 82.9 Glucose Level 121 mg/dL (70-99) Calcium Level 7.3 mg/dL (8.5-10.1) Ammonia < 10 mcmol/L (11-34) Procalcitonin 1.48 ng/mL (0.00-0.10) O2 Saturation 98 % (92-99) Arterial Blood pH 7.34 (7.35-7.45) Arterial Blood pCO2 at Patient Temp 34 mmHg (35-46) Arterial Blood pO2 at Patient Temp 139 mmHg (65-108) Arterial Blood HCO3 18 mmol/L (21-28) Arterial Blood Base Excess -7 mmol/L (-3-3) FiO2 40 Laboratory Tests Test 06/24/19 17:00 06/24/19 19:33 06/24/19 21:34 06/25/19 02:47 White Blood Count 17.4 x10^3/uL (4.0-11.0) Red Blood Count 3.86 x10^6/uL (4.30-5.70) Hemoglobin 11.5 g/dL (13.0-17.5) Hematocrit 33.5 % (39.0-53.0) Mean Corpuscular Volume 87 fL (79-100) Mean Corpuscular Hemoglobin 30 pg (25-35) Mean Corpuscular Hemoglobin Concent 34 g/dL (31-37) Red Cell Distribution Width 14.9 % (11.5-14.5) Platelet Count 399 x10^3/uL (140-400) Neutrophils (%) (Auto) 95 % (31-73) Lymphocytes (%) (Auto) 2 % (24-48) Monocytes (%) (Auto) 3 % (0-9) Eosinophils (%) (Auto) 0 % (0-3) Basophils (%) (Auto) 0 % (0-3) Neutrophils # (Auto) 16.5 x10^3/uL (1.8-7.7) Lymphocytes # (Auto) 0.4 x10^3/uL (1.0-4.8) Monocytes # (Auto) 0.5 x10^3/uL (0.0-1.1) Eosinophils # (Auto) 0.0 x10^3/uL (0.0-0.7) Basophils # (Auto) 0.0 x10^3/uL (0.0-0.2) Segmented Neutrophils % 78 % (35-66) Band Neutrophils % 13 % (0-9) Lymphocytes % 4 % (24-48) Monocytes % 4 % (0-10) Basophils % 1 % (0-3) Platelet Estimate Adequate (ADEQUATE) Prothrombin Time 16.0 SEC (11.7-14.0) Prothromb Time International Ratio 1.3 (0.8-1.1) Activated Partial Thromboplast Time 31 SEC (24-38) Sodium Level 139 mmol/L (136-145) Potassium Level 4.1 mmol/L (3.5-5.1) Chloride Level 104 mmol/L (98-107) Carbon Dioxide Level 24 mmol/L (21-32) Anion Gap 11 (6-14) Blood Urea Nitrogen 17 mg/dL (8-26) Creatinine 1.1 mg/dL (0.7-1.3) Estimated GFR (Cockcroft-Gault) 65.8 BUN/Creatinine Ratio 15 (6-20) Glucose Level 111 mg/dL (70-99) Lactic Acid Level 1.6 mmol/L (0.4-2.0) Calcium Level 8.3 mg/dL (8.5-10.1) Magnesium Level 1.8 mg/dL (1.8-2.4) Total Bilirubin 0.5 mg/dL (0.2-1.0) Aspartate Amino Transf (AST/SGOT) 23 U/L (15-37) Alanine Aminotransferase (ALT/SGPT) 39 U/L (16-63) Alkaline Phosphatase 72 U/L (46-116) Creatine Kinase 15 U/L (39-308) Creatine Kinase MB (Mass) 0.6 ng/mL (0.0-3.6) Creatine Kinase MB Relative Index % (0-4) Troponin I Quantitative < 0.017 ng/mL (0.000-0.055) OH-Xne-Z-Type Natriuretic Peptide 4327 pg/mL (0-124) Total Protein 6.7 g/dL (6.4-8.2) Albumin 2.6 g/dL (3.4-5.0) Albumin/Globulin Ratio 0.6 (1.0-1.7) Amylase Level 53 U/L (25-115) Lipase 75 U/L (73-393) Procalcitonin 0.58 ng/mL (0.00-0.10) Urine Collection Type Unknown Urine Color Yellow Urine Clarity Cloudy Urine pH 7.5 Urine Specific [place] 1.020 Urine Protein 30 mg/dL (NEG-TRACE) Urine Glucose (UA) Negative mg/dL (NEG) Urine Ketones (Stick) Trace mg/dL (NEG) Urine Blood Negative (NEG) Urine Nitrite Positive (NEG) Urine Bilirubin Negative (NEG) Urine Urobilinogen Dipstick 1.0 mg/dL (0.2 mg/dL) Urine Leukocyte Esterase Large (NEG) Urine RBC 0 /HPF (0-2) Urine WBC >40 /HPF (0-4) Urine Bacteria Many /HPF (0-FEW) Urine Mucus Mod /LPF Urine Opiates Screen Neg (NEG) Urine Methadone Screen Neg (NEG) Urine Barbiturates Neg (NEG) Urine Phencyclidine Screen Neg (NEG) Urine Amphetamine/Methamphetamine Neg (NEG) Urine Benzodiazepines Screen Neg (NEG) Urine Cocaine Screen Neg (NEG) Urine Cannabinoids Screen Neg (NEG) Urine Ethyl Alcohol Neg (NEG) O2 Saturation 99 % (92-99) Arterial Blood pH 7.38 (7.35-7.45) Arterial Blood pH (Temp corrected) 7.39 Arterial Blood pCO2 at Patient Temp 30 mmHg (35-46) Arterial Blood pCO2 (Temp correct) 30 mmHg Arterial Blood pO2 at Patient Temp 312 mmHg (65-108) Arterial Blood pO2 (Temp corrected) 311 mmHg Arterial Blood HCO3 18 mmol/L (21-28) Arterial Blood Base Excess -6 mmol/L (-3-3) FiO2 70 Glucose (Fingerstick) 127 mg/dL (70-99) Test 06/25/19 05:50 06/25/19 08:00 White Blood Count 16.0 x10^3/uL (4.0-11.0) Red Blood Count 3.55 x10^6/uL (4.30-5.70) Hemoglobin 10.4 g/dL (13.0-17.5) Hematocrit 31.5 % (39.0-53.0) Mean Corpuscular Volume 89 fL (79-100) Mean Corpuscular Hemoglobin 29 pg (25-35) Mean Corpuscular Hemoglobin Concent 33 g/dL (31-37) Red Cell Distribution Width 15.0 % (11.5-14.5) Platelet Count 456 x10^3/uL (140-400) Neutrophils (%) (Auto) 84 % (31-73) Lymphocytes (%) (Auto) 8 % (24-48) Monocytes (%) (Auto) 8 % (0-9) Eosinophils (%) (Auto) 1 % (0-3) Basophils (%) (Auto) 0 % (0-3) Neutrophils # (Auto) 13.4 x10^3/uL (1.8-7.7) Lymphocytes # (Auto) 1.2 x10^3/uL (1.0-4.8) Monocytes # (Auto) 1.2 x10^3/uL (0.0-1.1) Eosinophils # (Auto) 0.1 x10^3/uL (0.0-0.7) Basophils # (Auto) 0.0 x10^3/uL (0.0-0.2) Sodium Level 142 mmol/L (136-145) Potassium Level 3.9 mmol/L (3.5-5.1) Chloride Level 110 mmol/L (98-107) Carbon Dioxide Level 22 mmol/L (21-32) Anion Gap 10 (6-14) Blood Urea Nitrogen 14 mg/dL (8-26) Creatinine 0.9 mg/dL (0.7-1.3) Estimated GFR (Cockcroft-Gault) 82.9 Glucose Level 121 mg/dL (70-99) Calcium Level 7.3 mg/dL (8.5-10.1) Ammonia < 10 mcmol/L (11-34) Procalcitonin 1.48 ng/mL (0.00-0.10) O2 Saturation 98 % (92-99) Arterial Blood pH 7.34 (7.35-7.45) Arterial Blood pCO2 at Patient Temp 34 mmHg (35-46) Arterial Blood pO2 at Patient Temp 139 mmHg (65-108) Arterial Blood HCO3 18 mmol/L (21-28) Arterial Blood Base Excess -7 mmol/L (-3-3) FiO2 40 Medications Active Scripts Medications Dose Route/Sig Max Daily Dose Days Date Category Valproic Acid (Valproate Sodium) 250 Mg/5 Ml Solution 250 Mg PO DAILY 06/24/19 Reported Valproic Acid (Valproate Sodium) 250 Mg/5 Ml Solution 500 Mg PO HS 06/24/19 Reported Terazosin Hcl 2 Mg Capsule 1 Mg PO HS 06/24/19 Reported Ondansetron Odt (Ondansetron) 4 Mg Tab.rapdis 4 Mg PO Q6HRS PRN 06/24/19 Reported Lorazepam 2 Mg/1 Ml Oral.conc 0.5 Mg PO PRN Q8HRS PRN 06/24/19 Reported Famotidine 20 Mg Tablet 20 Mg PO BID 06/24/19 Reported Doxycycline Hyclate 100 Mg Tablet 1 Tab PO BID 10 06/24/19 Reported Cardizem Tablet (Diltiazem Hcl) 60 Mg Tablet 60 Mg PO QID 06/24/19 Reported Bactrim Ds Tablet (Sulfamethoxazole/Trimethoprim) 1 Each Tablet 1 Tab PO BID 10 06/24/19 Reported Bacitracin 3.5 Gm Oint...g. 1 [place]ham OD BID 06/24/19 Reported Artificial Tears Eye Drops (Dextran 70/Hypromellose) 15 Ml Drops 1 Drop EACHEYE QID PRN 06/24/19 Reported Eliquis (Apixaban) 5 Mg Tablet 5 Mg PO BID 06/24/19 Reported Amiodarone Hcl 200 Mg Tablet 200 Mg PO DAILY 06/24/19 Reported Acetaminophen 325 Mg Tablet 650 Mg PO PRN Q6HRS PRN 06/24/19 Reported Aspirin 81 Mg Tab.chew 1 Tab PO DAILY 04/23/19 Reported Mirtazapine 15 Mg Tablet 1 Tab PO QHS 04/22/19 Reported Multi-Day Vitamins (Multivitamin) 1 Each Tablet 1 Tab PO DAILY 04/17/15 Reported Impression . FULL NOTE DICTATED ACUTE RESP FAILURE SEPTIC SHOCK ABNORMAL CXR SEE ORDERS THANKS RAKESH DICKINSON MD Jun 25, 2019 12:08
--- NOTE | 2019-06-25 12:26 | CONS ---
DATE OF CONSULTATION: 06/25/2019 ATTENDING PHYSICIAN: Yan Jerome MD REASON FOR CONSULTATION: The patient seen in pulmonary consultation at the request of Dr. Jerome for vent management. HISTORY OF PRESENT ILLNESS: The patient is a 74-year-old male with known history of autism, mentally challenged, has a previous history of respiratory failure, PEG in place. He was brought to the Emergency Department for fever, temperature, placed on doxycycline. He also had periods of emesis. His white count was initially elevated. The patient now eventually deteriorated and had an episode of tachycardia, bradycardia, subsequent PEA. ACLS protocol was followed and had return of spontaneous circulation after approximately 5 minutes. He was intubated. He is currently in the intensive care unit. He is on Levophed. He is receiving multiple antibiotics. He has been seen by Infectious Disease Service and has been placed on broad coverage antibiotics in addition to Micafungin. PAST MEDICAL HISTORY: Remarkable for autism, history of PEG tube placement infection, history of respiratory failure, gastroesophageal reflux, benign prostatic hypertrophy, atrial fibrillation, hypertension, UTI, hematuria. PAST SURGICAL HISTORY: Status post PEG tube placement. He has had previous Ernesto fundoplication. ALLERGIES: CEPHALOSPORINS, PENICILLIN, CARBAMAZEPINE, MEROPENEM AND PENICILLAMINE. SOCIAL HISTORY: [facility]. FAMILY HISTORY: Noncontributory in this case. REVIEW OF SYSTEMS: Unobtainable secondary to the patient's condition. PHYSICAL EXAMINATION: GENERAL: The patient was in the intensive care unit. He is hypotensive, but currently mean arterial blood pressure is above 65. VITAL SIGNS: He is on Levophed. He is on assist control ventilation. HEENT: Eyes: The sclerae were nonicteric. NECK: Jugular venous distention could not be assessed secondary to body habitus. CHEST: Full expansion. LUNGS: Scattered rhonchi. No wheezes. CARDIOVASCULAR: Regular rate and rhythm with S1, S2, no S3. ABDOMEN: Soft, nontender. PEG in place. EXTREMITIES: No clubbing, cyanosis. Some edema. NEUROLOGIC: The patient was sedated. LABORATORY DATA: Labs were reviewed. White count was elevated. Hemoglobin and hematocrit were noted. Arterial blood gas this morning, pH of 7.34, PaCO2 of 34, pO2 of 139, bicarbonate was 18. Electrolytes were noted. BUN and creatinine were normal. Procalcitonin was elevated. Toxicology was negative. Chest x-ray was reviewed. There is bilateral infiltrates and effusion, mainly in the bases. IMPRESSION: 1. Acute hypoxemic respiratory failure. 2. Septic shock. 3. Leukocytosis. 4. Urinary tract infection. 5. Status post pulseless electrical activity. ACLS protocol was followed. The patient had return of spontaneous circulation within 5 minutes. 6. Multiple antibiotic allergies. 7. Possible pneumonia. 8. Status post percutaneous endoscopic gastrostomy. 9. History of atrial fibrillation. 10. History of methicillin-resistant Staph aureus infection. PLAN: 1. We will continue current vent settings. 2. Support with IV fluids and pressors. 3. IV antibiotics per Infectious Disease service. 4. Continue home meds. 5. DVT and GI prophylaxis. 6. Start nutritional support. I do appreciate the privilege in sharing in the patient's care. Total cumulative critical care time of 50 minutes. RAKESH DICKINSON MD DR: OSMIN/nts JOB#: [id number] / [id number]
[2019-06-25] MEDS ORDERED: ENOXAPARIN 40 MG/0.4 ML SYRINGE. SQ SCH (13:00)
--- NOTE | 2019-06-25 13:05 | NUR ---
SS following for discharge planning. SS reviewed pt chart. Pt is from [facility], ; fax [phone]. 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 [facility] reported that pt has been at there facility since 05/17/2019 and prior to that was at [facility] from 04/15/2019-05/17/2019. Jose reported that pt was scheduled to discharge back to his [facility], [facility], ; fax [phone], later this week. Jose reported that his caser in at [facility] is Haylie, . SS will continue to follow for discharge planning.
--- NOTE | 2019-06-25 15:15 | RAD ---
CT CHEST WO CONTRAST History: Respiratory failure Technique: Noncontrast CT of the chest was performed. Coronal and sagittal reconstructions were performed. Exposure: One or more of the following individualized dose reduction techniques were utilized for this examination: 1. Automated exposure control 2. Adjustment of the mA and/or kV according to patient size 3. Use of iterative reconstruction technique. Comparison: CT January 30, 2007 and chest x-ray June 25, 2019 Findings: Chest: Endotracheal tube. Partially imaged gastrostomy tube. Right IJ approach central line. Coronary artery calcifications. Septal thickening bilaterally with groundglass opacities.. Tiny bilateral pleural effusions with bilateral lower lobe atelectasis. Multiple mildly enlarged mediastinal lymph nodes, likely reactive. Upper abdomen: Left adrenal nodule measures 1.7 x 1.3 cm, unchanged compared to prior. Bones: No pathologic osseous lesions. Impression: 1. Mild septal thickening and bilateral ground glass opacities, may represent pulmonary edema or infectious/inflammatory process. 2. Tiny bilateral pleural effusions with adjacent atelectasis. 3. Mildly prominent mediastinal lymph nodes, likely reactive. 4. Left adrenal nodule, unchanged compared to 2006. Electronically signed by: Domingo Mejia DO (06/25/2019 3:12 PM) [facility]
--- NOTE | 2019-06-25 15:28 | RAD ---
HAND RIGHT 2V History: Right index finger infection. Technique: 2 views right hand. Comparison: None. Findings: Normal alignment. No fracture. No radiographic evidence of osteomyelitis. Second and third metacarpal joint space narrowing with hooked osteophytes. Vascular calcifications. Impression: 1. No radiographic evidence of osteomyelitis. MRI can further evaluate if clinically indicated. 2. Second and third metacarpophalangeal joint space narrowing with osteophytes, can be seen with inflammatory arthropathies. Electronically signed by: Domingo Mejia DO (06/25/2019 3:25 PM) [facility]
--- NOTE | 2019-06-25 18:29 | NUR ---
At 1600 patient HR SVT in 140's. BP dropped, turned Levo up to 0.5mc/kg/min. CVP 9, gave [address] Rodney. Orders to give 1X 5mg IV Metoprolol. Gave Metoprolol, brought HR down into the 120's. Dr Rodney aware, orders for another 5mg IV Metoprolol. states if patient's HR goes back up into 140's throughout the night will need shock.
[2019-06-25] MEDS ORDERED: METOPROLOL TARTRATE 5 MG/5 ML VIAL. IVP ONE ×2 (18:30→18:45)
[2019-06-25] MEDS ORDERED: DEXTROSE 50% 25 GM / 50ML DISP.SYRIN. IV PRN (18:45)
[2019-06-25] MEDS: INSULIN LISPRO 300 UNITS/3 ML VIAL. SQ SCH (19:30)
[2019-06-25] MEDS ORDERED: VANCOMYCIN 1 GM in IV NORMAL SALINE 250ML 250 ML IV SCH (23:30)
[2019-06-26] VITALS (28 sets, daily range): BP systolic 82–143; BP diastolic 55–85
[2019-06-26] MEDS: AZTREONAM IV Push 2 GM VIAL. IVP SCH ×5 (00:12→23:36)
[2019-06-26] MEDS: METOPROLOL TARTRATE 5 MG/5 ML VIAL. IVP PRN ×2 (00:12→08:22)
[2019-06-26] MEDS: NOREPINEPHRIN 8MG/250ML PREMIX 250 ML IV PRN ×4 (02:11→23:37)
--- NOTE | 2019-06-26 06:02 | PDOC ---
Infectious Disease Note ROS ROS unable to obtain Vital Sign Vital Signs Vital Signs Date Time Temp Pulse Resp B/P (MAP) Pulse Ox O2 Delivery O2 Flow Rate FiO2 06/26/19 05:00 133 16 90/67 (75) 100 Ventilator 06/26/19 04:00 100.2 100.2 Physical Exam PHYSICAL EXAM CONSTITUTIONAL: He is intubated, he is sedated. HEENT: Pupils are small, reactive. Normal conjunctivae. NECK: Supple, no JVD. LUNGS: Decreased at the bases. HEART: S1, S2. ABDOMEN: Soft. PEG tube without signs of any complications. GENITOURINARY: Had a Ortega in place. EXTREMITIES: Without clubbing, cyanosis or gross edema. His right index finger, about the nail has some erythema, has some peeling, drying of the skin. There is no pus. Do not appear to be tender. He has good radial pulse, on ulnar decreased, but palpable. SKIN: Warm to touch without signs of rash. IVs he has a right IJ and a right hand peripheral IV, both appear to be clean. Labs Lab Laboratory Tests Test 06/25/19 08:00 06/25/19 17:48 06/25/19 19:55 O2 Saturation 98 % (92-99) Arterial Blood pH 7.34 (7.35-7.45) Arterial Blood pCO2 at Patient Temp 34 mmHg (35-46) Arterial Blood pO2 at Patient Temp 139 mmHg (65-108) Arterial Blood HCO3 18 mmol/L (21-28) Arterial Blood Base Excess -7 mmol/L (-3-3) FiO2 40 Glucose (Fingerstick) 109 mg/dL (70-99) 123 mg/dL (70-99) Micro Impression: 1. Mild septal thickening and bilateral ground glass opacities, may represent pulmonary edema or infectious/inflammatory process. 2. Tiny bilateral pleural effusions with adjacent atelectasis. 3. Mildly prominent mediastinal lymph nodes, likely reactive. 4. Left adrenal nodule, unchanged compared to 2006 Microbiology 06/24/19 Blood Culture - Preliminary, Resulted NO GROWTH AFTER 1 DAY Objective Assessment sepsis - POA 06/24 on high dose Levophed Leukocytosis - better UTI - POA R Index finger infection - XRAY neg S/p PEA Multiple abx allergies - no rash Acute resp failure - intubated ? Pneumonia - POA H/o PEG tube infection H/o Afib no tachy MRSA - + Plan Plan of Care Cont Vanc/Aztreonam/Flagyl and micafungin Add Tigecycline Check sputum cult F/u labs and cults Critically ill D/w nursing MARIA L AUGUSTINE MD Jun 26, 2019 06:02
[2019-06-26 06:09] LABS: BASO # 0.1 x10^3/uL (0.0-0.2); BASO % 1 % (0-3); EOS # 0.1 x10^3/uL (0.0-0.7); EOS % 1 % (0-3); HEMATOCRIT 35.8 % (39.0-53.0); HEMOGLOBIN 11.9 g/dL (13.0-17.5); LYMPH # 2.5 x10^3/uL (1.0-4.8); LYMPH % 17 % (24-48); MEAN CORPUSCULAR HEMOGLOBIN 30 pg (25-35); MEAN CORPUSCULAR HGB CONC 33 g/dL (31-37); MEAN CORPUSCULAR VOLUME 89 fL (79-100); MONO # 1.4 x10^3/uL (0.0-1.1); MONO % 9 % (0-9); NEUT # 10.7 x10^3/uL (1.8-7.7); NEUT % 73 % (31-73); PLATELET COUNT 491 x10^3/uL (140-400); RED BLOOD COUNT 4.05 x10^6/uL (4.30-5.70); RED CELL DISTRIBUTION WIDTH 15.3 % (11.5-14.5); WHITE BLOOD COUNT 14.8 x10^3/uL (4.0-11.0)
[2019-06-26 06:29] LABS: ALBUMIN/GLOBULIN RATIO 0.5 (1.0-1.7); CREATININE 1.1 mg/dL (0.7-1.3); GFR 65.8; POTASSIUM 4.3 mmol/L (3.5-5.1); TOTAL BILIRUBIN 0.4 mg/dL (0.2-1.0); TOTAL PROTEIN 6.1 g/dL (6.4-8.2)
[2019-06-26] MEDS ORDERED: TIGECYCLINE 100 MG in IV DEXTROSE 5% 100ML 100 ML IV ONE (07:00)
[2019-06-26] MEDS: INSULIN LISPRO 300 UNITS/3 ML VIAL. SQ SCH ×3 (07:31→16:46)
[2019-06-26] MEDS: MICAFUNGIN 100 MG in IV DEXTROSE 5% 100ML 100 ML IV SCH (07:54)
[2019-06-26 08:01] LABS: BASE EXCESS ABG -6 mmol/L (-3-3); HCO3 ABG 20 mmol/L (21-28); PCO2 ABG 37 mmHg (35-46); PO2 ABG 127 mmHg (65-108); SAT O2 ABG 98 % (92-99)
[2019-06-26 08:02] LABS: FIO2 ABG 35
[2019-06-26] MEDS: VANCOMYCIN PER PHARMACY MC PRN ×2 (08:34→23:39)
--- NOTE | 2019-06-26 08:36 | RAD ---
AP chest x-ray COMPARISON: CT chest June 25, 2019. HISTORY: RF 108. Respiratory failure. FINDINGS: Endotracheal tube tip 4 cm above the akil. Right jugular central venous catheter tip atrial caval junction. Borderline cardiomegaly stable. Aortic arch calcified plaque. There is decreased pulmonary vascular congestion and interstitial reticulation, and the visceral thickening has resolved, typical of improving interstitial pulmonary edema. Indistinct density obscuring the left diaphragm and right lateral diaphragm likely due to a small pleural effusions, stable. Bones are unremarkable. IMPRESSION: Mild improvement of the pulmonary edema. Lines and tubes as described above. Electronically signed by: Alex Sanchez MD (06/26/2019 8:33 AM) [facility]
--- NOTE | 2019-06-26 09:00 | PDOC ---
PULMONARY PROGRESS NOTES Subjective 74 yo male chronic assisted resident with PEG came to ER with fever and nausea. Past history of serious infections. Underwent cardiac arrest. He is being treated by ID service for sepsis with broad spectrum antibiotics including antifungal. Cardiology is following and treating for acute on chronic heart tracy jean. He is intubated, sedated and unresponsive. He remains on pressor support for blood pressure. Vitals Vital Signs Date Time Temp Pulse Resp B/P (MAP) Pulse Ox O2 Delivery O2 Flow Rate FiO2 06/26/19 08:22 139 143/81 06/26/19 07:59 16 100 Ventilator 06/26/19 04:00 100.2 100.2 Comments ros unobtainable HEENT: Other Lungs: Other (equal breath sounds. no wheezing, rales or rhonchi) Cardiovascular: S1, S2 Abdomen: Soft, Non-tender, Other (PEG in place) Extremities: No Edema, Other Skin: Warm Labs Laboratory Tests Test 06/24/19 17:00 06/24/19 19:33 06/24/19 21:34 06/25/19 01:10 White Blood Count 17.4 x10^3/uL (4.0-11.0) Red Blood Count 3.86 x10^6/uL (4.30-5.70) Hemoglobin 11.5 g/dL (13.0-17.5) Hematocrit 33.5 % (39.0-53.0) Mean Corpuscular Volume 87 fL (79-100) Mean Corpuscular Hemoglobin 30 pg (25-35) Mean Corpuscular Hemoglobin Concent 34 g/dL (31-37) Red Cell Distribution Width 14.9 % (11.5-14.5) Platelet Count 399 x10^3/uL (140-400) Neutrophils (%) (Auto) 95 % (31-73) Lymphocytes (%) (Auto) 2 % (24-48) Monocytes (%) (Auto) 3 % (0-9) Eosinophils (%) (Auto) 0 % (0-3) Basophils (%) (Auto) 0 % (0-3) Neutrophils # (Auto) 16.5 x10^3/uL (1.8-7.7) Lymphocytes # (Auto) 0.4 x10^3/uL (1.0-4.8) Monocytes # (Auto) 0.5 x10^3/uL (0.0-1.1) Eosinophils # (Auto) 0.0 x10^3/uL (0.0-0.7) Basophils # (Auto) 0.0 x10^3/uL (0.0-0.2) Segmented Neutrophils % 78 % (35-66) Band Neutrophils % 13 % (0-9) Lymphocytes % 4 % (24-48) Monocytes % 4 % (0-10) Basophils % 1 % (0-3) Platelet Estimate Adequate (ADEQUATE) Prothrombin Time 16.0 SEC (11.7-14.0) Prothromb Time International Ratio 1.3 (0.8-1.1) Activated Partial Thromboplast Time 31 SEC (24-38) Sodium Level 139 mmol/L (136-145) Potassium Level 4.1 mmol/L (3.5-5.1) Chloride Level 104 mmol/L (98-107) Carbon Dioxide Level 24 mmol/L (21-32) Anion Gap 11 (6-14) Blood Urea Nitrogen 17 mg/dL (8-26) Creatinine 1.1 mg/dL (0.7-1.3) Estimated GFR (Cockcroft-Gault) 65.8 BUN/Creatinine Ratio 15 (6-20) Glucose Level 111 mg/dL (70-99) Lactic Acid Level 1.6 mmol/L (0.4-2.0) Calcium Level 8.3 mg/dL (8.5-10.1) Magnesium Level 1.8 mg/dL (1.8-2.4) Total Bilirubin 0.5 mg/dL (0.2-1.0) Aspartate Amino Transf (AST/SGOT) 23 U/L (15-37) Alanine Aminotransferase (ALT/SGPT) 39 U/L (16-63) Alkaline Phosphatase 72 U/L (46-116) Creatine Kinase 15 U/L (39-308) Creatine Kinase MB (Mass) 0.6 ng/mL (0.0-3.6) Creatine Kinase MB Relative Index % (0-4) Troponin I Quantitative < 0.017 ng/mL (0.000-0.055) KS-Iht-Y-Type Natriuretic Peptide 4327 pg/mL (0-124) Total Protein 6.7 g/dL (6.4-8.2) Albumin 2.6 g/dL (3.4-5.0) Albumin/Globulin Ratio 0.6 (1.0-1.7) Amylase Level 53 U/L (25-115) Lipase 75 U/L (73-393) Procalcitonin 0.58 ng/mL (0.00-0.10) Urine Collection Type Unknown Urine Color Yellow Urine Clarity Cloudy Urine pH 7.5 Urine Specific [place] 1.020 Urine Protein 30 mg/dL (NEG-TRACE) Urine Glucose (UA) Negative mg/dL (NEG) Urine Ketones (Stick) Trace mg/dL (NEG) Urine Blood Negative (NEG) Urine Nitrite Positive (NEG) Urine Bilirubin Negative (NEG) Urine Urobilinogen Dipstick 1.0 mg/dL (0.2 mg/dL) Urine Leukocyte Esterase Large (NEG) Urine RBC 0 /HPF (0-2) Urine WBC >40 /HPF (0-4) Urine Bacteria Many /HPF (0-FEW) Urine Mucus Mod /LPF Urine Opiates Screen Neg (NEG) Urine Methadone Screen Neg (NEG) Urine Barbiturates Neg (NEG) Urine Phencyclidine Screen Neg (NEG) Urine Amphetamine/Methamphetamine Neg (NEG) Urine Benzodiazepines Screen Neg (NEG) Urine Cocaine Screen Neg (NEG) Urine Cannabinoids Screen Neg (NEG) Urine Ethyl Alcohol Neg (NEG) O2 Saturation 99 % (92-99) Arterial Blood pH 7.38 (7.35-7.45) Arterial Blood pH (Temp corrected) 7.39 Arterial Blood pCO2 at Patient Temp 30 mmHg (35-46) Arterial Blood pCO2 (Temp correct) 30 mmHg Arterial Blood pO2 at Patient Temp 312 mmHg (65-108) Arterial Blood pO2 (Temp corrected) 311 mmHg Arterial Blood HCO3 18 mmol/L (21-28) Arterial Blood Base Excess -6 mmol/L (-3-3) FiO2 70 Nasal Screen MRSA (PCR) Positive (Negative) Test 06/25/19 02:47 06/25/19 05:50 06/25/19 08:00 06/25/19 17:48 Glucose (Fingerstick) 127 mg/dL (70-99) 109 mg/dL (70-99) White Blood Count 16.0 x10^3/uL (4.0-11.0) Red Blood Count 3.55 x10^6/uL (4.30-5.70) Hemoglobin 10.4 g/dL (13.0-17.5) Hematocrit 31.5 % (39.0-53.0) Mean Corpuscular Volume 89 fL (79-100) Mean Corpuscular Hemoglobin 29 pg (25-35) Mean Corpuscular Hemoglobin Concent 33 g/dL (31-37) Red Cell Distribution Width 15.0 % (11.5-14.5) Platelet Count 456 x10^3/uL (140-400) Neutrophils (%) (Auto) 84 % (31-73) Lymphocytes (%) (Auto) 8 % (24-48) Monocytes (%) (Auto) 8 % (0-9) Eosinophils (%) (Auto) 1 % (0-3) Basophils (%) (Auto) 0 % (0-3) Neutrophils # (Auto) 13.4 x10^3/uL (1.8-7.7) Lymphocytes # (Auto) 1.2 x10^3/uL (1.0-4.8) Monocytes # (Auto) 1.2 x10^3/uL (0.0-1.1) Eosinophils # (Auto) 0.1 x10^3/uL (0.0-0.7) Basophils # (Auto) 0.0 x10^3/uL (0.0-0.2) Sodium Level 142 mmol/L (136-145) Potassium Level 3.9 mmol/L (3.5-5.1) Chloride Level 110 mmol/L (98-107) Carbon Dioxide Level 22 mmol/L (21-32) Anion Gap 10 (6-14) Blood Urea Nitrogen 14 mg/dL (8-26) Creatinine 0.9 mg/dL (0.7-1.3) Estimated GFR (Cockcroft-Gault) 82.9 Glucose Level 121 mg/dL (70-99) Calcium Level 7.3 mg/dL (8.5-10.1) Ammonia < 10 mcmol/L (11-34) Procalcitonin 1.48 ng/mL (0.00-0.10) O2 Saturation 98 % (92-99) Arterial Blood pH 7.34 (7.35-7.45) Arterial Blood pCO2 at Patient Temp 34 mmHg (35-46) Arterial Blood pO2 at Patient Temp 139 mmHg (65-108) Arterial Blood HCO3 18 mmol/L (21-28) Arterial Blood Base Excess -7 mmol/L (-3-3) FiO2 40 Test 06/25/19 19:55 06/26/19 05:50 06/26/19 07:50 Glucose (Fingerstick) 123 mg/dL (70-99) White Blood Count 14.8 x10^3/uL (4.0-11.0) Red Blood Count 4.05 x10^6/uL (4.30-5.70) Hemoglobin 11.9 g/dL (13.0-17.5) Hematocrit 35.8 % (39.0-53.0) Mean Corpuscular Volume 89 fL (79-100) Mean Corpuscular Hemoglobin 30 pg (25-35) Mean Corpuscular Hemoglobin Concent 33 g/dL (31-37) Red Cell Distribution Width 15.3 % (11.5-14.5) Platelet Count 491 x10^3/uL (140-400) Neutrophils (%) (Auto) 73 % (31-73) Lymphocytes (%) (Auto) 17 % (24-48) Monocytes (%) (Auto) 9 % (0-9) Eosinophils (%) (Auto) 1 % (0-3) Basophils (%) (Auto) 1 % (0-3) Neutrophils # (Auto) 10.7 x10^3/uL (1.8-7.7) Lymphocytes # (Auto) 2.5 x10^3/uL (1.0-4.8) Monocytes # (Auto) 1.4 x10^3/uL (0.0-1.1) Eosinophils # (Auto) 0.1 x10^3/uL (0.0-0.7) Basophils # (Auto) 0.1 x10^3/uL (0.0-0.2) Sodium Level 143 mmol/L (136-145) Potassium Level 4.3 mmol/L (3.5-5.1) Chloride Level 111 mmol/L (98-107) Carbon Dioxide Level 24 mmol/L (21-32) Anion Gap 8 (6-14) Blood Urea Nitrogen 15 mg/dL (8-26) Creatinine 1.1 mg/dL (0.7-1.3) Estimated GFR (Cockcroft-Gault) 65.8 BUN/Creatinine Ratio 14 (6-20) Glucose Level 127 mg/dL (70-99) Calcium Level 8.0 mg/dL (8.5-10.1) Total Bilirubin 0.4 mg/dL (0.2-1.0) Aspartate Amino Transf (AST/SGOT) 22 U/L (15-37) Alanine Aminotransferase (ALT/SGPT) 29 U/L (16-63) Alkaline Phosphatase 69 U/L (46-116) Total Protein 6.1 g/dL (6.4-8.2) Albumin 2.0 g/dL (3.4-5.0) Albumin/Globulin Ratio 0.5 (1.0-1.7) O2 Saturation 98 % (92-99) Arterial Blood pH 7.34 (7.35-7.45) Arterial Blood pCO2 at Patient Temp 37 mmHg (35-46) Arterial Blood pO2 at Patient Temp 127 mmHg (65-108) Arterial Blood HCO3 20 mmol/L (21-28) Arterial Blood Base Excess -6 mmol/L (-3-3) FiO2 35 Laboratory Tests Test 06/25/19 17:48 06/25/19 19:55 06/26/19 05:50 06/26/19 07:50 Glucose (Fingerstick) 109 mg/dL (70-99) 123 mg/dL (70-99) White Blood Count 14.8 x10^3/uL (4.0-11.0) Red Blood Count 4.05 x10^6/uL (4.30-5.70) Hemoglobin 11.9 g/dL (13.0-17.5) Hematocrit 35.8 % (39.0-53.0) Mean Corpuscular Volume 89 fL (79-100) Mean Corpuscular Hemoglobin 30 pg (25-35) Mean Corpuscular Hemoglobin Concent 33 g/dL (31-37) Red Cell Distribution Width 15.3 % (11.5-14.5) Platelet Count 491 x10^3/uL (140-400) Neutrophils (%) (Auto) 73 % (31-73) Lymphocytes (%) (Auto) 17 % (24-48) Monocytes (%) (Auto) 9 % (0-9) Eosinophils (%) (Auto) 1 % (0-3) Basophils (%) (Auto) 1 % (0-3) Neutrophils # (Auto) 10.7 x10^3/uL (1.8-7.7) Lymphocytes # (Auto) 2.5 x10^3/uL (1.0-4.8) Monocytes # (Auto) 1.4 x10^3/uL (0.0-1.1) Eosinophils # (Auto) 0.1 x10^3/uL (0.0-0.7) Basophils # (Auto) 0.1 x10^3/uL (0.0-0.2) Sodium Level 143 mmol/L (136-145) Potassium Level 4.3 mmol/L (3.5-5.1) Chloride Level 111 mmol/L (98-107) Carbon Dioxide Level 24 mmol/L (21-32) Anion Gap 8 (6-14) Blood Urea Nitrogen 15 mg/dL (8-26) Creatinine 1.1 mg/dL (0.7-1.3) Estimated GFR (Cockcroft-Gault) 65.8 BUN/Creatinine Ratio 14 (6-20) Glucose Level 127 mg/dL (70-99) Calcium Level 8.0 mg/dL (8.5-10.1) Total Bilirubin 0.4 mg/dL (0.2-1.0) Aspartate Amino Transf (AST/SGOT) 22 U/L (15-37) Alanine Aminotransferase (ALT/SGPT) 29 U/L (16-63) Alkaline Phosphatase 69 U/L (46-116) Total Protein 6.1 g/dL (6.4-8.2) Albumin 2.0 g/dL (3.4-5.0) Albumin/Globulin Ratio 0.5 (1.0-1.7) O2 Saturation 98 % (92-99) Arterial Blood pH 7.34 (7.35-7.45) Arterial Blood pCO2 at Patient Temp 37 mmHg (35-46) Arterial Blood pO2 at Patient Temp 127 mmHg (65-108) Arterial Blood HCO3 20 mmol/L (21-28) Arterial Blood Base Excess -6 mmol/L (-3-3) FiO2 35 Medications Active Scripts Medications Dose Route/Sig Max Daily Dose Days Date Category Valproic Acid (Valproate Sodium) 250 Mg/5 Ml Solution 250 Mg PO DAILY 06/24/19 Reported Valproic Acid (Valproate Sodium) 250 Mg/5 Ml Solution 500 Mg PO HS 06/24/19 Reported Terazosin Hcl 2 Mg Capsule 1 Mg PO HS 06/24/19 Reported Ondansetron Odt (Ondansetron) 4 Mg Tab.rapdis 4 Mg PO Q6HRS PRN 06/24/19 Reported Lorazepam 2 Mg/1 Ml Oral.conc 0.5 Mg PO PRN Q8HRS PRN 06/24/19 Reported Famotidine 20 Mg Tablet 20 Mg PO BID 06/24/19 Reported Doxycycline Hyclate 100 Mg Tablet 1 Tab PO BID 10 06/24/19 Reported Cardizem Tablet (Diltiazem Hcl) 60 Mg Tablet 60 Mg PO QID 06/24/19 Reported Bactrim Ds Tablet (Sulfamethoxazole/Trimethoprim) 1 Each Tablet 1 Tab PO BID 10 06/24/19 Reported Bacitracin 3.5 Gm Oint...g. 1 [place] OD BID 06/24/19 Reported Artificial Tears Eye Drops (Dextran 70/Hypromellose) 15 Ml Drops 1 Drop EACHEYE QID PRN 06/24/19 Reported Eliquis (Apixaban) 5 Mg Tablet 5 Mg PO BID 06/24/19 Reported Amiodarone Hcl 200 Mg Tablet 200 Mg PO DAILY 06/24/19 Reported Acetaminophen 325 Mg Tablet 650 Mg PO PRN Q6HRS PRN 06/24/19 Reported Aspirin 81 Mg Tab.chew 1 Tab PO DAILY 04/23/19 Reported Mirtazapine 15 Mg Tablet 1 Tab PO QHS 04/22/19 Reported Multi-Day Vitamins (Multivitamin) 1 Each Tablet 1 Tab PO DAILY 04/17/15 Reported Comments reviewed cxrs including today and past CT. No change in bilateral, diffuse infiltrates Impression . 1. Acute respiratory failure 2. bilateral infiltrates likely combination of non-cardiogenic pulmonary edema (ARDS) and cardiogenic pulmonary edema. Pneumonia possible. 3.septic shock 4. acute on chronic diastolic heart failure Plan . 1. Cont mechanical ventilatory support. will adjust as necessary. At present stable on FiO2 = 0.35 2 Would not pursue extubation until more hemodynamic stability (typically off pressor support) 3. Agree with ID management CCM time spent reviewing case, radiology, examining patient and documenting 35 min SHU ERICKSON MD Jun 26, 2019 08:59
[2019-06-26] MEDS ORDERED: LORazepam INTENSOL 2 MG/ML ORAL.CONC PO PRN (10:15)
[2019-06-26] MEDS ORDERED: ACETAMINOPHEN 325 MG TABLET. PO PRN (10:15)
[2019-06-26] MEDS ORDERED: ONDANSETRON ODT 4 MG TAB.RAPDIS. PO PRN (10:15)
[2019-06-26] MEDS ORDERED: LORazepam INTENSOL 2 MG/ML ORAL.CONC PEG PRN (10:35)
--- NOTE | 2019-06-26 10:54 | PN ---
DATE: 06/26/2019 SUBJECTIVE: The patient continued to be intubated, mechanically ventilated on sedation. He continued to have episodes of SVT, sinus tachycardia despite being on fentanyl and Versed. PHYSICAL EXAMINATION: GENERAL: When I examined him, he looked pale, but no jaundice, cyanosis or thyromegaly. No jugular venous distention. No limb edema. VITAL SIGNS: His heart rate was 129, blood pressure was 84/68, temperature was 99, respiratory rate was 16, and oxygen saturation was 100% on FiO2 of 40%. HEAD, EYES, EARS, NOSE AND THROAT: Showed normocephalic, atraumatic. He has orotracheal and orogastric tube in place. NECK: Supple. HEART: Showed normal first and second heart sounds with no gallop, rub or murmur. CHEST: Clear to auscultation. No crepitation or rhonchi. ABDOMEN: Distended, soft, nontender. No guarding or rigidity. No organomegaly. All hernial orifice intact. Bowel sounds normal. NEUROLOGIC: He is heavily sedated. He has intake over the last 24 hours was 2961, output was 3630. LABORATORY DATA: His lab work this morning showed his white cell count is down to 14,800, hemoglobin 11.9, hematocrit 36, MCV 89, and platelet count of 191,000. His chemistry showed a serum sodium 143, potassium 4.3, chloride 111, bicarbonate 24, anion gap of 8, BUN 15, creatinine 1.1, estimated GFR was 66 mL per minute, his glucose 127, calcium was 8. Total bilirubin, AST, ALT, alkaline phosphatase were normal. Total protein was 6.1, albumin 2. His blood gases showed a pH of 7.34, pCO2 of 37, pO2 of 127, bicarbonate 20, and oxygen saturation was 98% on FiO2 of 35%. So far, his blood cultures are negative. His chest x-ray showed that he has mild pulmonary edema that has slightly improved. Chest CT scan showed that the patient has septal thickening bilaterally with ground-glass opacities, tiny bilateral pleural effusion, bilateral lower lobe atelectasis, multiple mildly enlarged mediastinal lymph nodes, likely reactive. I did resume all his medication. ASSESSMENT: 1. Severe sepsis, multifactorial including pneumonia, urinary tract infection, possible right index finger infection. 2. Status post pulseless electrical activity, cardiac arrest with subsequent acute respiratory failure for which he was intubated and mechanically ventilated. Currently, he is on aztreonam, Flagyl, micafungin as well as vancomycin. Other medical problems include paroxysmal supraventricular arrhythmias. 3. Moderate aortic stenosis. 4. Mental retardation with autism. 5. Aspiration pneumonia and previous history of acute respiratory failure. PLAN: To continue with IV antibiotic. I did resume all his medications. He is now on tube feeding. I have discontinued Lovenox as he was put back on his apixaban. KANU GARCIA MD DR: JUDIE/nicolasa JOB#: [id number] / [id number]
[2019-06-26] MEDS: BACITRACIN/POLYMYXIN B OPHTH OINTMENT 3.5GM TUBE. OD SCH ×2 (10:57→21:00)
[2019-06-26] MEDS: ASPIRIN CHEWABLE 81 MG TABLET. PEG SCH (10:58)
[2019-06-26] MEDS: AMIODARONE HCL 200 MG TABLET. PEG SCH (10:58)
[2019-06-26] MEDS: APIXABAN 5 MG TABLET. PO SCH ×2 (10:58→21:01)
[2019-06-26] MEDS: VALPROIC ACID (AS SODIUM SALT) 250 MG/5 ML SOLUTION. PEG SCH ×2 (10:58→21:01)
[2019-06-26] MEDS: FAMOTIDINE 20 MG TABLET. PEG SCH ×2 (10:58→21:01)
[2019-06-26] MEDS: dilTIAZem HCL 30 MG TABLET PEG SCH ×3 (11:36→23:37)
[2019-06-26] MEDS: TIGECYCLINE 50 MG in IV DEXTROSE 5% 50 ML IV SCH (18:15)
[2019-06-26] MEDS: MIDAZOLAM 100mg/100ml NS BAG 100 ML IV PRN (18:15)
[2019-06-26] MEDS ORDERED: SMZ/TMP 800/160MG TABLET. PO SCH (21:00)
[2019-06-26] MEDS: TERAZOSIN 1 MG CAPSULE. PO SCH (21:00)
[2019-06-26] MEDS: MIRTAZAPINE 15 MG TABLET PO SCH (21:01)
[2019-06-26 23:23] LABS: VANC TR 4.3 mcg/mL (10.0-20.0)
[2019-06-26] MEDS: VANCOMYCIN 1 GM in IV NORMAL SALINE 250ML 250 ML IV SCH (23:36)
--- NOTE | 2019-06-26 23:41 | NUR ---
Pharmacy Vancomycin Dosing Note S: Consulted to monitor and dose vancomycin started 06/24/19. O: ARI CM is a 74 year old M with Sepsis HCAP, . Other Antibiotics: METRONIDAZOLE, MICAFUNGIN AND AZTREONAM, TYGACIL LABS: Last BUN: 15 Last Creatinine: 1.1 Creatinine Clearance: 55 mL/min Last WBC: 14.8 Last Procalcitonin: 1.48 Tmax (past 24 hours): 100 Microbiology: BLOOD CX NGTD I/O: 2961/3630 Drug Levels: Last Trough level: 4.3 on 06/26/19 at 2300 Last dose given 06/25/19 at 2300 Vancomycin Dosing: Dosing Weight: Actual Target Trough: 15-20 A: Based on: Trough, Updated Actual Wt and CrCl P: 1. 06/26/19 2330 Increase Vancomycin 1000 mg IV q12h 2. Follow up Trough level on 06/28/19 at 1100 3. Pharmacy will continue to monitor, follow and adjust therapy as needed. SHU OSUNA RPH, 06/26/19 [id number] Signed: 06/26/19 at 2342 by SHU OSUNA RPH PHA
[2019-06-27] VITALS (33 sets, daily range): BP systolic 73–152; BP diastolic 50–79
[2019-06-27 05:17] LABS: BASO # 0.1 x10^3/uL (0.0-0.2); BASO % 1 % (0-3); EOS # 0.5 x10^3/uL (0.0-0.7); EOS % 4 % (0-3); HEMATOCRIT 33.8 % (39.0-53.0); HEMOGLOBIN 11.3 g/dL (13.0-17.5); LYMPH # 2.1 x10^3/uL (1.0-4.8); LYMPH % 18 % (24-48); MEAN CORPUSCULAR HEMOGLOBIN 30 pg (25-35); MEAN CORPUSCULAR HGB CONC 34 g/dL (31-37); MEAN CORPUSCULAR VOLUME 89 fL (79-100); MONO % 9 % (0-9); NEUT # 8.1 x10^3/uL (1.8-7.7); NEUT % 69 % (31-73); PLATELET COUNT 365 x10^3/uL (140-400); RED BLOOD COUNT 3.81 x10^6/uL (4.30-5.70); RED CELL DISTRIBUTION WIDTH 15.5 % (11.5-14.5); WHITE BLOOD COUNT 11.8 x10^3/uL (4.0-11.0)
[2019-06-27] MEDS: dilTIAZem HCL 30 MG TABLET PEG SCH ×3 (05:45→17:48)
[2019-06-27] MEDS: AZTREONAM IV Push 2 GM VIAL. IVP SCH ×3 (05:53→17:47)
[2019-06-27 05:54] LABS: ALBUMIN 1.6 g/dL (3.4-5.0); ALBUMIN/GLOBULIN RATIO 0.5 (1.0-1.7); CALCIUM 7.7 mg/dL (8.5-10.1); CREATININE 0.8 mg/dL (0.7-1.3); TOTAL BILIRUBIN 0.3 mg/dL (0.2-1.0); TOTAL PROTEIN 5.1 g/dL (6.4-8.2)
--- NOTE | 2019-06-27 06:06 | PDOC ---
Infectious Disease Note Subjective Subjective Intubated/sedated ROS ROS unable to obtain Vital Sign Vital Signs Vital Signs Date Time Temp Pulse Resp B/P (MAP) Pulse Ox O2 Delivery O2 Flow Rate FiO2 06/27/19 05:52 100 Ventilator 06/27/19 05:45 53 152/79 06/27/19 05:00 16 06/27/19 04:00 98.4 98.4 Physical Exam PHYSICAL EXAM CONSTITUTIONAL: He is intubated, he is sedated. HEENT: Pupils are small, reactive. Normal conjunctivae. NECK: Supple, no JVD. LUNGS: Decreased at the bases. HEART: S1, S2. ABDOMEN: Soft. PEG tube without signs of any complications. GENITOURINARY: Had a Ortega in place. EXTREMITIES: Without clubbing, cyanosis or gross edema. His right index finger, about the nail has some erythema, has some peeling, drying of the skin. There is no pus. Do not appear to be tender. He has good radial pulse, on ulnar decreased, but palpable. SKIN: Warm to touch without signs of rash. IVs: he has a right IJ and a right hand peripheral IV, both appear to be clean. Labs Lab Laboratory Tests Test 06/26/19 07:50 06/26/19 11:38 06/26/19 16:42 06/26/19 23:00 O2 Saturation 98 % (92-99) Arterial Blood pH 7.34 (7.35-7.45) Arterial Blood pCO2 at Patient Temp 37 mmHg (35-46) Arterial Blood pO2 at Patient Temp 127 mmHg (65-108) Arterial Blood HCO3 20 mmol/L (21-28) Arterial Blood Base Excess -6 mmol/L (-3-3) FiO2 35 Glucose (Fingerstick) 114 mg/dL (70-99) 133 mg/dL (70-99) Vancomycin Level Trough 4.3 mcg/mL (10.0-20.0) Vancomycin Last Dose Date 06/25/19 Vancomycin Last Dose Time 233 Test 06/27/19 05:00 White Blood Count 11.8 x10^3/uL (4.0-11.0) Red Blood Count 3.81 x10^6/uL (4.30-5.70) Hemoglobin 11.3 g/dL (13.0-17.5) Hematocrit 33.8 % (39.0-53.0) Mean Corpuscular Volume 89 fL (79-100) Mean Corpuscular Hemoglobin 30 pg (25-35) Mean Corpuscular Hemoglobin Concent 34 g/dL (31-37) Red Cell Distribution Width 15.5 % (11.5-14.5) Platelet Count 365 x10^3/uL (140-400) Neutrophils (%) (Auto) 69 % (31-73) Lymphocytes (%) (Auto) 18 % (24-48) Monocytes (%) (Auto) 9 % (0-9) Eosinophils (%) (Auto) 4 % (0-3) Basophils (%) (Auto) 1 % (0-3) Neutrophils # (Auto) 8.1 x10^3/uL (1.8-7.7) Lymphocytes # (Auto) 2.1 x10^3/uL (1.0-4.8) Monocytes # (Auto) 1.0 x10^3/uL (0.0-1.1) Eosinophils # (Auto) 0.5 x10^3/uL (0.0-0.7) Basophils # (Auto) 0.1 x10^3/uL (0.0-0.2) Sodium Level 143 mmol/L (136-145) Potassium Level 4.0 mmol/L (3.5-5.1) Chloride Level 111 mmol/L (98-107) Carbon Dioxide Level 25 mmol/L (21-32) Anion Gap 7 (6-14) Blood Urea Nitrogen 16 mg/dL (8-26) Creatinine 0.8 mg/dL (0.7-1.3) Estimated GFR (Cockcroft-Gault) 95.0 BUN/Creatinine Ratio 20 (6-20) Glucose Level 130 mg/dL (70-99) Calcium Level 7.7 mg/dL (8.5-10.1) Magnesium Level 2.0 mg/dL (1.8-2.4) Total Bilirubin 0.3 mg/dL (0.2-1.0) Aspartate Amino Transf (AST/SGOT) 20 U/L (15-37) Alanine Aminotransferase (ALT/SGPT) 27 U/L (16-63) Alkaline Phosphatase 62 U/L (46-116) Total Protein 5.1 g/dL (6.4-8.2) Albumin 1.6 g/dL (3.4-5.0) Albumin/Globulin Ratio 0.5 (1.0-1.7) Micro Impression: 1. Mild septal thickening and bilateral ground glass opacities, may represent pulmonary edema or infectious/inflammatory process. 2. Tiny bilateral pleural effusions with adjacent atelectasis. 3. Mildly prominent mediastinal lymph nodes, likely reactive. 4. Left adrenal nodule, unchanged compared to 2006 Microbiology 06/24/19 Blood Culture - Preliminary, Resulted NO GROWTH AFTER 1 DAY Objective Assessment sepsis - better today POA 06/24 on Levophed today half of yesterdays Leukocytosis - better UTI - POA R Index finger infection - XRAY neg S/p PEA Multiple abx allergies - no rash Acute resp failure - intubated ? Pneumonia - POA H/o PEG tube infection H/o Afib - SVT controlled MRSA - + Plan Plan of Care Cont Vanc/Aztreonam/Flagyl and micafungin Added Tigecycline 06/26 Check sputum cult F/u labs and cults Critically ill D/w nursing MARIA L AUGUSTINE MD Jun 27, 2019 06:06
[2019-06-27] MEDS: TIGECYCLINE 50 MG in IV DEXTROSE 5% 50 ML IV SCH ×2 (06:34→17:48)
--- NOTE | 2019-06-27 06:52 | RAD ---
AP chest. HISTORY: Intubated AP portable chest was compared with a study from one day ago. Endotracheal tube and central line are unchanged. Patient's taken a poor inspiration. Pleural effusions are possible. There is basilar basilar atelectasis or infiltrate little change. IMPRESSION: 1. No change from the prior study. Electronically signed by: Demarcus Mejia MD (06/27/2019 6:49 AM) [facility]
[2019-06-27] MEDS: INSULIN LISPRO 300 UNITS/3 ML VIAL. SQ SCH ×3 (07:26→17:53)
[2019-06-27] MEDS ORDERED: DEXTROSE 50% 25 GM / 50ML DISP.SYRIN. IV PRN (07:30)
--- NOTE | 2019-06-27 07:58 | PDOC ---
PULMONARY PROGRESS NOTES Subjective 74 yo male chronic senior care resident with PEG came to ER with fever and nausea. Past history of serious infections. Underwent cardiac arrest. He is being treated by ID service for sepsis with broad spectrum antibiotics including antifungal. Cardiology is following and treating for acute on chronic heart tracy jean. He is intubated, sedated and unresponsive. He remains on pressor support for blood pressure. Overnight his FiO2 has been decreased. His pressor has been reduced. His HR is controlled with amiodarone. Vitals Vital Signs Date Time Temp Pulse Resp B/P (MAP) Pulse Ox O2 Delivery O2 Flow Rate FiO2 06/27/19 07:15 16 100 Ventilator 06/27/19 07:00 54 91/57 (68) 06/27/19 04:00 98.4 98.4 Comments ros unobtainable HEENT: Other Lungs: Other (equal breath sounds. no wheezing, rales or rhonchi) Cardiovascular: S1, S2 Abdomen: Soft, Non-tender, Other (PEG in place) Extremities: No Edema, Other Skin: Warm Labs Laboratory Tests Test 06/25/19 08:00 06/25/19 17:48 06/25/19 19:55 06/26/19 05:50 O2 Saturation 98 % (92-99) Arterial Blood pH 7.34 (7.35-7.45) Arterial Blood pCO2 at Patient Temp 34 mmHg (35-46) Arterial Blood pO2 at Patient Temp 139 mmHg (65-108) Arterial Blood HCO3 18 mmol/L (21-28) Arterial Blood Base Excess -7 mmol/L (-3-3) FiO2 40 Glucose (Fingerstick) 109 mg/dL (70-99) 123 mg/dL (70-99) White Blood Count 14.8 x10^3/uL (4.0-11.0) Red Blood Count 4.05 x10^6/uL (4.30-5.70) Hemoglobin 11.9 g/dL (13.0-17.5) Hematocrit 35.8 % (39.0-53.0) Mean Corpuscular Volume 89 fL (79-100) Mean Corpuscular Hemoglobin 30 pg (25-35) Mean Corpuscular Hemoglobin Concent 33 g/dL (31-37) Red Cell Distribution Width 15.3 % (11.5-14.5) Platelet Count 491 x10^3/uL (140-400) Neutrophils (%) (Auto) 73 % (31-73) Lymphocytes (%) (Auto) 17 % (24-48) Monocytes (%) (Auto) 9 % (0-9) Eosinophils (%) (Auto) 1 % (0-3) Basophils (%) (Auto) 1 % (0-3) Neutrophils # (Auto) 10.7 x10^3/uL (1.8-7.7) Lymphocytes # (Auto) 2.5 x10^3/uL (1.0-4.8) Monocytes # (Auto) 1.4 x10^3/uL (0.0-1.1) Eosinophils # (Auto) 0.1 x10^3/uL (0.0-0.7) Basophils # (Auto) 0.1 x10^3/uL (0.0-0.2) Sodium Level 143 mmol/L (136-145) Potassium Level 4.3 mmol/L (3.5-5.1) Chloride Level 111 mmol/L (98-107) Carbon Dioxide Level 24 mmol/L (21-32) Anion Gap 8 (6-14) Blood Urea Nitrogen 15 mg/dL (8-26) Creatinine 1.1 mg/dL (0.7-1.3) Estimated GFR (Cockcroft-Gault) 65.8 BUN/Creatinine Ratio 14 (6-20) Glucose Level 127 mg/dL (70-99) Calcium Level 8.0 mg/dL (8.5-10.1) Total Bilirubin 0.4 mg/dL (0.2-1.0) Aspartate Amino Transf (AST/SGOT) 22 U/L (15-37) Alanine Aminotransferase (ALT/SGPT) 29 U/L (16-63) Alkaline Phosphatase 69 U/L (46-116) Total Protein 6.1 g/dL (6.4-8.2) Albumin 2.0 g/dL (3.4-5.0) Albumin/Globulin Ratio 0.5 (1.0-1.7) Test 06/26/19 07:50 06/26/19 11:38 06/26/19 16:42 06/26/19 23:00 O2 Saturation 98 % (92-99) Arterial Blood pH 7.34 (7.35-7.45) Arterial Blood pCO2 at Patient Temp 37 mmHg (35-46) Arterial Blood pO2 at Patient Temp 127 mmHg (65-108) Arterial Blood HCO3 20 mmol/L (21-28) Arterial Blood Base Excess -6 mmol/L (-3-3) FiO2 35 Glucose (Fingerstick) 114 mg/dL (70-99) 133 mg/dL (70-99) Vancomycin Level Trough 4.3 mcg/mL (10.0-20.0) Vancomycin Last Dose Date 06/25/19 Vancomycin Last Dose Time 2330 Test 06/27/19 05:00 White Blood Count 11.8 x10^3/uL (4.0-11.0) Red Blood Count 3.81 x10^6/uL (4.30-5.70) Hemoglobin 11.3 g/dL (13.0-17.5) Hematocrit 33.8 % (39.0-53.0) Mean Corpuscular Volume 89 fL (79-100) Mean Corpuscular Hemoglobin 30 pg (25-35) Mean Corpuscular Hemoglobin Concent 34 g/dL (31-37) Red Cell Distribution Width 15.5 % (11.5-14.5) Platelet Count 365 x10^3/uL (140-400) Neutrophils (%) (Auto) 69 % (31-73) Lymphocytes (%) (Auto) 18 % (24-48) Monocytes (%) (Auto) 9 % (0-9) Eosinophils (%) (Auto) 4 % (0-3) Basophils (%) (Auto) 1 % (0-3) Neutrophils # (Auto) 8.1 x10^3/uL (1.8-7.7) Lymphocytes # (Auto) 2.1 x10^3/uL (1.0-4.8) Monocytes # (Auto) 1.0 x10^3/uL (0.0-1.1) Eosinophils # (Auto) 0.5 x10^3/uL (0.0-0.7) Basophils # (Auto) 0.1 x10^3/uL (0.0-0.2) Sodium Level 143 mmol/L (136-145) Potassium Level 4.0 mmol/L (3.5-5.1) Chloride Level 111 mmol/L (98-107) Carbon Dioxide Level 25 mmol/L (21-32) Anion Gap 7 (6-14) Blood Urea Nitrogen 16 mg/dL (8-26) Creatinine 0.8 mg/dL (0.7-1.3) Estimated GFR (Cockcroft-Gault) 95.0 BUN/Creatinine Ratio 20 (6-20) Glucose Level 130 mg/dL (70-99) Calcium Level 7.7 mg/dL (8.5-10.1) Magnesium Level 2.0 mg/dL (1.8-2.4) Total Bilirubin 0.3 mg/dL (0.2-1.0) Aspartate Amino Transf (AST/SGOT) 20 U/L (15-37) Alanine Aminotransferase (ALT/SGPT) 27 U/L (16-63) Alkaline Phosphatase 62 U/L (46-116) Total Protein 5.1 g/dL (6.4-8.2) Albumin 1.6 g/dL (3.4-5.0) Albumin/Globulin Ratio 0.5 (1.0-1.7) Laboratory Tests Test 06/26/19 11:38 06/26/19 16:42 06/26/19 23:00 06/27/19 05:00 Glucose (Fingerstick) 114 mg/dL (70-99) 133 mg/dL (70-99) Vancomycin Level Trough 4.3 mcg/mL (10.0-20.0) Vancomycin Last Dose Date 06/25/19 Vancomycin Last Dose Time 2330 White Blood Count 11.8 x10^3/uL (4.0-11.0) Red Blood Count 3.81 x10^6/uL (4.30-5.70) Hemoglobin 11.3 g/dL (13.0-17.5) Hematocrit 33.8 % (39.0-53.0) Mean Corpuscular Volume 89 fL (79-100) Mean Corpuscular Hemoglobin 30 pg (25-35) Mean Corpuscular Hemoglobin Concent 34 g/dL (31-37) Red Cell Distribution Width 15.5 % (11.5-14.5) Platelet Count 365 x10^3/uL (140-400) Neutrophils (%) (Auto) 69 % (31-73) Lymphocytes (%) (Auto) 18 % (24-48) Monocytes (%) (Auto) 9 % (0-9) Eosinophils (%) (Auto) 4 % (0-3) Basophils (%) (Auto) 1 % (0-3) Neutrophils # (Auto) 8.1 x10^3/uL (1.8-7.7) Lymphocytes # (Auto) 2.1 x10^3/uL (1.0-4.8) Monocytes # (Auto) 1.0 x10^3/uL (0.0-1.1) Eosinophils # (Auto) 0.5 x10^3/uL (0.0-0.7) Basophils # (Auto) 0.1 x10^3/uL (0.0-0.2) Sodium Level 143 mmol/L (136-145) Potassium Level 4.0 mmol/L (3.5-5.1) Chloride Level 111 mmol/L (98-107) Carbon Dioxide Level 25 mmol/L (21-32) Anion Gap 7 (6-14) Blood Urea Nitrogen 16 mg/dL (8-26) Creatinine 0.8 mg/dL (0.7-1.3) Estimated GFR (Cockcroft-Gault) 95.0 BUN/Creatinine Ratio 20 (6-20) Glucose Level 130 mg/dL (70-99) Calcium Level 7.7 mg/dL (8.5-10.1) Magnesium Level 2.0 mg/dL (1.8-2.4) Total Bilirubin 0.3 mg/dL (0.2-1.0) Aspartate Amino Transf (AST/SGOT) 20 U/L (15-37) Alanine Aminotransferase (ALT/SGPT) 27 U/L (16-63) Alkaline Phosphatase 62 U/L (46-116) Total Protein 5.1 g/dL (6.4-8.2) Albumin 1.6 g/dL (3.4-5.0) Albumin/Globulin Ratio 0.5 (1.0-1.7) Medications Active Scripts Medications Dose Route/Sig Max Daily Dose Days Date Category Valproic Acid (Valproate Sodium) 250 Mg/5 Ml Solution 250 Mg PO DAILY 06/24/19 Reported Valproic Acid (Valproate Sodium) 250 Mg/5 Ml Solution 500 Mg PO HS 06/24/19 Reported Terazosin Hcl 2 Mg Capsule 1 Mg PO HS 06/24/19 Reported Ondansetron Odt (Ondansetron) 4 Mg Tab.rapdis 4 Mg PO Q6HRS PRN 06/24/19 Reported Lorazepam 2 Mg/1 Ml Oral.conc 0.5 Mg PO PRN Q8HRS PRN 06/24/19 Reported Famotidine 20 Mg Tablet 20 Mg PO BID 06/24/19 Reported Doxycycline Hyclate 100 Mg Tablet 1 Tab PO BID 10 06/24/19 Reported Cardizem Tablet (Diltiazem Hcl) 60 Mg Tablet 60 Mg PO QID 06/24/19 Reported Bactrim Ds Tablet (Sulfamethoxazole/Trimethoprim) 1 Each Tablet 1 Tab PO BID 10 06/24/19 Reported Bacitracin 3.5 Gm Oint...g. 1 Hesham OD BID 06/24/19 Reported Artificial Tears Eye Drops (Dextran 70/Hypromellose) 15 Ml Drops 1 Drop EACHEYE QID PRN 06/24/19 Reported Eliquis (Apixaban) 5 Mg Tablet 5 Mg PO BID 06/24/19 Reported Amiodarone Hcl 200 Mg Tablet 200 Mg PO DAILY 06/24/19 Reported Acetaminophen 325 Mg Tablet 650 Mg PO PRN Q6HRS PRN 06/24/19 Reported Aspirin 81 Mg Tab.chew 1 Tab PO DAILY 04/23/19 Reported Mirtazapine 15 Mg Tablet 1 Tab PO QHS 04/22/19 Reported Multi-Day Vitamins (Multivitamin) 1 Each Tablet 1 Tab PO DAILY 04/17/15 Reported Comments reviewed cxrs including today and past CT. No change in bilateral, diffuse infiltrates Impression . 1. Acute respiratory failure, improved 2. bilateral infiltrates likely combination of non-cardiogenic pulmonary edema (ARDS) and cardiogenic pulmonary edema. Pneumonia possible. 3.septic shock, improved 4. acute on chronic diastolic heart failure Plan . 1. Will hold sedation. If he can protect airway and pressor not needed, will assess for extubation Agree with ID management SHU ERICKSON MD Jun 27, 2019 07:58
[2019-06-27] MEDS: ASPIRIN CHEWABLE 81 MG TABLET. PEG SCH (08:37)
[2019-06-27] MEDS: FAMOTIDINE 20 MG TABLET. PEG SCH ×2 (08:37→23:05)
[2019-06-27] MEDS: MICAFUNGIN 100 MG in IV DEXTROSE 5% 100ML 100 ML IV SCH (08:37)
[2019-06-27] MEDS: VALPROIC ACID (AS SODIUM SALT) 250 MG/5 ML SOLUTION. PEG SCH ×2 (08:37→23:05)
[2019-06-27] MEDS: APIXABAN 5 MG TABLET. PO SCH ×2 (08:37→23:05)
[2019-06-27] MEDS: BACITRACIN/POLYMYXIN B OPHTH OINTMENT 3.5GM TUBE. OD SCH ×2 (08:38→23:05)
[2019-06-27] MEDS: MULTIVITAMINS,THERAPEUTIC 5 ML ORAL LIQUID. PEG SCH (08:40)
[2019-06-27] MEDS: AMIODARONE HCL 200 MG TABLET. PEG SCH (09:00)
[2019-06-27] MEDS ORDERED: MULTIVITAMIN with MINERAL TABLET. PO SCH (09:00)
[2019-06-27] MEDS: VANCOMYCIN PER PHARMACY MC PRN (09:08)
[2019-06-27] MEDS: VANCOMYCIN 1 GM in IV NORMAL SALINE 250ML 250 ML IV SCH (11:12)
--- NOTE | 2019-06-27 12:22 | PN ---
DATE: 06/27/2019 SUBJECTIVE: The patient continued to be intubated, mechanically ventilated, maintaining his oxygen saturation 100% on FiO2 of 35%. He is off sedation and he is on a very tiny dose of Levophed. His heart rate is much better controlled now after we started his amiodarone. OBJECTIVE: GENERAL: When I examined him, he looked pale, cachectic, but no jaundice, cyanosis, or thyromegaly. No jugular venous distention. No limb edema. VITAL SIGNS: His heart rate was 54, blood pressure was 91/57, temperature was 98.4, respiratory rate was 16, and oxygen saturation was 100% on FiO2 of 35%. His intake was 3960, output was 3630. HEENT: Showed normocephalic, atraumatic. NECK: Supple. HEART: Showed normal first and second heart sounds with no gallop, rub, or murmur. CHEST: Clear to auscultation. No crepitation or rhonchi. ABDOMEN: Distended, soft, nontender. NEUROLOGIC: Just now, they discontinued his sedation. LABORATORY DATA: His lab work this morning showed a white cell count down to 11,800, hemoglobin 11, hematocrit 33, MCV 89, and platelet count 365,000. His chemistry this morning showed a serum sodium 143, potassium 4, chloride 111, bicarbonate 25, anion gap of 7, BUN 16, creatinine 0.8, estimated GFR was 95 mL per minute, his glucose 130, calcium was 7.7, magnesium was 2; total bilirubin, AST, ALT, alkaline phosphatase were normal. Total protein was 5.1, albumin was 1.6. So far, his sputum culture showed no growth as well as his urine culture. His blood cultures showed no growth after 2 days. ASSESSMENT: 1. Severe sepsis, multifactorial including pneumonia, urinary tract infection, and possible right index finger infection. 2. Status post pulseless electrical activity, cardiac arrest, with subsequent acute respiratory failure, was intubated and mechanically ventilated. 3. He is currently on aztreonam, Flagyl, and micafungin as well as vancomycin. 4. Other medical problems include: A. Paroxysmal supraventricular tachycardia. Heart rate is much improved now after we started him on amiodarone. B. Moderate aortic stenosis. C. Mental retardation without autism. PLAN: Continue with mechanical ventilation, wean as tolerated; continue with intravenous fluid; continue with tube feeding. I have discontinued his Lovenox as he was put back on his apixaban. KANU GARCIA MD DR: JUDIE/nicolasa JOB#: [id number] / [id number]
[2019-06-27 15:02] LABS: BASE EXCESS ABG -3 mmol/L (-3-3); HCO3 ABG 21 mmol/L (21-28); PCO2 ABG 34 mmHg (35-46); PO2 ABG 137 mmHg (65-108); SAT O2 ABG 99 % (92-99)
[2019-06-27 15:10] LABS: FIO2 ABG 35%
[2019-06-27] MEDS: NOREPINEPHRIN 8MG/250ML PREMIX 250 ML IV PRN (17:51)
--- NOTE | 2019-06-27 18:23 | NUR ---
Versed and Fentanyl off at 0800
[2019-06-27] MEDS: TERAZOSIN 1 MG CAPSULE. PO SCH (21:00)
[2019-06-27] MEDS: MIRTAZAPINE 15 MG TABLET PO SCH (23:05)
[2019-06-28] VITALS (25 sets, daily range): BP systolic 29–148; BP diastolic 56–84
[2019-06-28] MEDS: AZTREONAM IV Push 2 GM VIAL. IVP SCH ×2 (01:18→05:43)
[2019-06-28] MEDS: VANCOMYCIN 1 GM in IV NORMAL SALINE 250ML 250 ML IV SCH (01:18)
[2019-06-28] MEDS: dilTIAZem HCL 30 MG TABLET PEG SCH ×2 (04:54)
[2019-06-28 05:39] LABS: BASO # 0.1 x10^3/uL (0.0-0.2); BASO % 1 % (0-3); EOS # 0.3 x10^3/uL (0.0-0.7); EOS % 4 % (0-3); HEMATOCRIT 34.5 % (39.0-53.0); HEMOGLOBIN 11.4 g/dL (13.0-17.5); LYMPH % 23 % (24-48); MEAN CORPUSCULAR HEMOGLOBIN 29 pg (25-35); MEAN CORPUSCULAR HGB CONC 33 g/dL (31-37); MEAN CORPUSCULAR VOLUME 88 fL (79-100); MONO # 0.8 x10^3/uL (0.0-1.1); MONO % 9 % (0-9); NEUT # 5.6 x10^3/uL (1.8-7.7); NEUT % 64 % (31-73); PLATELET COUNT 382 x10^3/uL (140-400); RED CELL DISTRIBUTION WIDTH 15.2 % (11.5-14.5); WHITE BLOOD COUNT 8.8 x10^3/uL (4.0-11.0)
[2019-06-28] MEDS: INSULIN LISPRO 300 UNITS/3 ML VIAL. SQ SCH ×4 (05:43→18:00)
[2019-06-28 06:00] LABS: ALBUMIN 1.5 g/dL (3.4-5.0); ALBUMIN/GLOBULIN RATIO 0.4 (1.0-1.7); CALCIUM 7.7 mg/dL (8.5-10.1); CREATININE 0.8 mg/dL (0.7-1.3); POTASSIUM 3.9 mmol/L (3.5-5.1); TOTAL BILIRUBIN 0.2 mg/dL (0.2-1.0); TOTAL PROTEIN 5.5 g/dL (6.4-8.2)
[2019-06-28] MEDS: TIGECYCLINE 50 MG in IV DEXTROSE 5% 50 ML IV SCH ×3 (07:00→20:54)
[2019-06-28 07:36] LABS: BASE EXCESS ABG -2 mmol/L (-3-3); HCO3 ABG 22 mmol/L (21-28); PCO2 ABG 35 mmHg (35-46); PO2 ABG 134 mmHg (65-108); SAT O2 ABG 99 % (92-99)
--- NOTE | 2019-06-28 07:45 | PDOC ---
Infectious Disease Note Subjective Subjective Intubated/sedated ROS ROS no n/v/d/fever Vital Sign Vital Signs Vital Signs Date Time Temp Pulse Resp B/P (MAP) Pulse Ox O2 Delivery O2 Flow Rate FiO2 06/28/19 06:00 59 17 148/83 (104) 100 Ventilator 06/28/19 04:00 97.9 97.9 Physical Exam PHYSICAL EXAM CONSTITUTIONAL: He is intubated, he is sedated. HEENT: Pupils are small, reactive. Normal conjunctivae. NECK: Supple, no JVD. LUNGS: Decreased at the bases. HEART: S1, S2. ABDOMEN: Soft. PEG tube without signs of any complications. GENITOURINARY: Had a Ortega in place. EXTREMITIES: Without clubbing, cyanosis or gross edema. His right index finger, about the nail has some erythema, has some peeling, drying of the skin. There is no pus. Do not appear to be tender. He has good radial pulse, on ulnar decreased, but palpable. SKIN: Warm to touch without signs of rash. IVs: he has a right IJ and a right hand peripheral IV, both appear to be clean. Labs Lab Laboratory Tests Test 06/27/19 08:00 06/27/19 12:19 06/27/19 17:53 06/28/19 05:28 O2 Saturation 99 % (92-99) Arterial Blood pH 7.41 (7.35-7.45) Arterial Blood pCO2 at Patient Temp 34 mmHg (35-46) Arterial Blood pO2 at Patient Temp 137 mmHg (65-108) Arterial Blood HCO3 21 mmol/L (21-28) Arterial Blood Base Excess -3 mmol/L (-3-3) FiO2 35% Glucose (Fingerstick) 111 mg/dL (70-99) 117 mg/dL (70-99) 109 mg/dL (70-99) Test 06/28/19 05:30 White Blood Count 8.8 x10^3/uL (4.0-11.0) Red Blood Count 3.90 x10^6/uL (4.30-5.70) Hemoglobin 11.4 g/dL (13.0-17.5) Hematocrit 34.5 % (39.0-53.0) Mean Corpuscular Volume 88 fL (79-100) Mean Corpuscular Hemoglobin 29 pg (25-35) Mean Corpuscular Hemoglobin Concent 33 g/dL (31-37) Red Cell Distribution Width 15.2 % (11.5-14.5) Platelet Count 382 x10^3/uL (140-400) Neutrophils (%) (Auto) 64 % (31-73) Lymphocytes (%) (Auto) 23 % (24-48) Monocytes (%) (Auto) 9 % (0-9) Eosinophils (%) (Auto) 4 % (0-3) Basophils (%) (Auto) 1 % (0-3) Neutrophils # (Auto) 5.6 x10^3/uL (1.8-7.7) Lymphocytes # (Auto) 2.0 x10^3/uL (1.0-4.8) Monocytes # (Auto) 0.8 x10^3/uL (0.0-1.1) Eosinophils # (Auto) 0.3 x10^3/uL (0.0-0.7) Basophils # (Auto) 0.1 x10^3/uL (0.0-0.2) Sodium Level 142 mmol/L (136-145) Potassium Level 3.9 mmol/L (3.5-5.1) Chloride Level 112 mmol/L (98-107) Carbon Dioxide Level 25 mmol/L (21-32) Anion Gap 5 (6-14) Blood Urea Nitrogen 19 mg/dL (8-26) Creatinine 0.8 mg/dL (0.7-1.3) Estimated GFR (Cockcroft-Gault) 95.0 BUN/Creatinine Ratio 24 (6-20) Glucose Level 121 mg/dL (70-99) Calcium Level 7.7 mg/dL (8.5-10.1) Total Bilirubin 0.2 mg/dL (0.2-1.0) Aspartate Amino Transf (AST/SGOT) 28 U/L (15-37) Alanine Aminotransferase (ALT/SGPT) 26 U/L (16-63) Alkaline Phosphatase 59 U/L (46-116) Total Protein 5.5 g/dL (6.4-8.2) Albumin 1.5 g/dL (3.4-5.0) Albumin/Globulin Ratio 0.4 (1.0-1.7) Micro Microbiology 06/25/19 - Final, Resulted 06/25/19 - Final, Resulted 06/25/19 - Final, Resulted 06/25/19 - Preliminary, Resulted 06/25/19 - Preliminary, Resulted 06/25/19 - Preliminary, Resulted 06/25/19 Gram Stain Evaluation - Final, Resulted 06/25/19 Sputum Culture - Preliminary, Resulted 06/25/19 Sputum Result 1 - Final, Resulted 06/24/19 Urine Culture - Final, Complete 06/24/19 Urine Culture Result 1 (MALINI) - Final, Complete 06/24/19 Blood Culture - Preliminary, Resulted NO GROWTH AFTER 3 DAYS Objective Assessment sepsis - better today POA 06/24 on Levophed today half of yesterdays Leukocytosis - better UTI - POA R Index finger infection - XRAY neg S/p PEA Multiple abx allergies - no rash Acute resp failure - intubated ? Pneumonia - POA H/o PEG tube infection H/o Afib - SVT controlled MRSA - + Plan Plan of Care d/c Vanc/Aztreonam/Flagyl and micafungin cont Tigecycline 06/26 Check sputum cult F/u labs and cults Critically ill d/w dr Jerome consider palliative care D/w nursing KRYSTEN RVIAS MD Jun 28, 2019 07:45
--- NOTE | 2019-06-28 08:08 | PN ---
DATE: 06/28/2019 SUBJECTIVE: The patient continued to be unresponsive despite discontinuation of sedation for almost 24 hours now, continued to have low-dose norepinephrine. He is maintaining his oxygen saturation at 100% on FiO2 of 35%. PHYSICAL EXAMINATION: GENERAL: When I examined him, he looked pale, no jaundice, cyanosis, or thyromegaly. No jugular venous distension. No lower limb edema. VITAL SIGNS: Her heart rate was 59, blood pressure was 148/83, temperature was 97.9, respiratory rate was 17 and oxygen saturation was 100% on room air. HEAD, EYES, EARS, NOSE AND THROAT: Showed normocephalic, atraumatic. NECK: Supple. HEART: Showed normal first and second heart sounds with no gallop, rub or murmur. CHEST: Clear to auscultation. No crepitation or rhonchi. ABDOMEN: Distended, soft, nontender. No guarding or rigidity. No organomegaly. All hernial orifice intact. Bowel sounds normal. NEUROLOGIC: He was unresponsive despite discontinuation of the sedation. His intake over the last 24 hours was 3600, output was 1470. LABORATORY DATA: Her lab work this morning showed a serum sodium 142, potassium 3.9, chloride 112, bicarbonate 25, anion gap of 5, BUN 19, creatinine 0.8, estimated GFR was 95 mL per minute, glucose 121, calcium was 7.7. Total bilirubin, AST, ALT, alkaline phosphatase were normal. Total protein was 5.5, albumin was 1.5. Her white cell count was 8800, hemoglobin 11.4, hematocrit 34.5, MCV 88 and platelet count 382,000. His blood gases showed a pH of 7.41, pCO2 was 34, pO2 137, bicarbonate 21 and oxygen saturation was 99% on FiO2 of 35%, congestive ASSESSMENT: 1. Severe sepsis, multifactorial including pneumonia, urinary tract infection and possible right index finger infection. 2. Status post pulseless electrical activity, cardiac arrest with subsequent acute respiratory failure requiring intubation and mechanical ventilation. 3. He is currently on aztreonam, Flagyl, micafungin as well as vancomycin. 4. Other medical problems include: A. Paroxysmal supraventricular tachycardia. Heart rate is much improved now after we started him on amiodarone. B. Moderate aortic stenosis. C. Mental retardation with autism. 5. The patient continued to be unresponsive despite discontinuation of his sedation for almost 24 hours. PLAN: My plan is to consult Neurology for evaluation and prognostication. KANU GARCIA MD DR: JUDIE/nicolasa JOB#: [id number] / [id number]
[2019-06-28] MEDS: VALPROIC ACID (AS SODIUM SALT) 250 MG/5 ML SOLUTION. PEG SCH ×2 (08:31→20:54)
--- NOTE | 2019-06-28 08:34 | PDOC ---
PULMONARY PROGRESS NOTES Subjective PT ON AC MODE NO SEDATION Vitals Vital Signs Date Time Temp Pulse Resp B/P (MAP) Pulse Ox O2 Delivery O2 Flow Rate FiO2 06/28/19 06:00 59 17 148/83 (104) 100 Ventilator 06/28/19 04:00 97.9 97.9 Comments ros unobtainable HEENT: Other Lungs: Other (equal breath sounds. no wheezing, rales or rhonchi) Cardiovascular: S1, S2 Abdomen: Soft, Non-tender, Other (PEG in place) Extremities: No Edema, Other Skin: Warm Labs Laboratory Tests Test 06/26/19 11:38 06/26/19 16:42 06/26/19 23:00 06/27/19 05:00 Glucose (Fingerstick) 114 mg/dL (70-99) 133 mg/dL (70-99) Vancomycin Level Trough 4.3 mcg/mL (10.0-20.0) Vancomycin Last Dose Date 06/25/19 Vancomycin Last Dose Time 2330 White Blood Count 11.8 x10^3/uL (4.0-11.0) Red Blood Count 3.81 x10^6/uL (4.30-5.70) Hemoglobin 11.3 g/dL (13.0-17.5) Hematocrit 33.8 % (39.0-53.0) Mean Corpuscular Volume 89 fL (79-100) Mean Corpuscular Hemoglobin 30 pg (25-35) Mean Corpuscular Hemoglobin Concent 34 g/dL (31-37) Red Cell Distribution Width 15.5 % (11.5-14.5) Platelet Count 365 x10^3/uL (140-400) Neutrophils (%) (Auto) 69 % (31-73) Lymphocytes (%) (Auto) 18 % (24-48) Monocytes (%) (Auto) 9 % (0-9) Eosinophils (%) (Auto) 4 % (0-3) Basophils (%) (Auto) 1 % (0-3) Neutrophils # (Auto) 8.1 x10^3/uL (1.8-7.7) Lymphocytes # (Auto) 2.1 x10^3/uL (1.0-4.8) Monocytes # (Auto) 1.0 x10^3/uL (0.0-1.1) Eosinophils # (Auto) 0.5 x10^3/uL (0.0-0.7) Basophils # (Auto) 0.1 x10^3/uL (0.0-0.2) Sodium Level 143 mmol/L (136-145) Potassium Level 4.0 mmol/L (3.5-5.1) Chloride Level 111 mmol/L (98-107) Carbon Dioxide Level 25 mmol/L (21-32) Anion Gap 7 (6-14) Blood Urea Nitrogen 16 mg/dL (8-26) Creatinine 0.8 mg/dL (0.7-1.3) Estimated GFR (Cockcroft-Gault) 95.0 BUN/Creatinine Ratio 20 (6-20) Glucose Level 130 mg/dL (70-99) Calcium Level 7.7 mg/dL (8.5-10.1) Magnesium Level 2.0 mg/dL (1.8-2.4) Total Bilirubin 0.3 mg/dL (0.2-1.0) Aspartate Amino Transf (AST/SGOT) 20 U/L (15-37) Alanine Aminotransferase (ALT/SGPT) 27 U/L (16-63) Alkaline Phosphatase 62 U/L (46-116) Total Protein 5.1 g/dL (6.4-8.2) Albumin 1.6 g/dL (3.4-5.0) Albumin/Globulin Ratio 0.5 (1.0-1.7) Procalcitonin 0.43 ng/mL (0.00-0.10) Test 06/27/19 08:00 06/27/19 12:19 06/27/19 17:53 06/28/19 05:28 O2 Saturation 99 % (92-99) Arterial Blood pH 7.41 (7.35-7.45) Arterial Blood pCO2 at Patient Temp 34 mmHg (35-46) Arterial Blood pO2 at Patient Temp 137 mmHg (65-108) Arterial Blood HCO3 21 mmol/L (21-28) Arterial Blood Base Excess -3 mmol/L (-3-3) FiO2 35% Glucose (Fingerstick) 111 mg/dL (70-99) 117 mg/dL (70-99) 109 mg/dL (70-99) Test 06/28/19 05:30 White Blood Count 8.8 x10^3/uL (4.0-11.0) Red Blood Count 3.90 x10^6/uL (4.30-5.70) Hemoglobin 11.4 g/dL (13.0-17.5) Hematocrit 34.5 % (39.0-53.0) Mean Corpuscular Volume 88 fL (79-100) Mean Corpuscular Hemoglobin 29 pg (25-35) Mean Corpuscular Hemoglobin Concent 33 g/dL (31-37) Red Cell Distribution Width 15.2 % (11.5-14.5) Platelet Count 382 x10^3/uL (140-400) Neutrophils (%) (Auto) 64 % (31-73) Lymphocytes (%) (Auto) 23 % (24-48) Monocytes (%) (Auto) 9 % (0-9) Eosinophils (%) (Auto) 4 % (0-3) Basophils (%) (Auto) 1 % (0-3) Neutrophils # (Auto) 5.6 x10^3/uL (1.8-7.7) Lymphocytes # (Auto) 2.0 x10^3/uL (1.0-4.8) Monocytes # (Auto) 0.8 x10^3/uL (0.0-1.1) Eosinophils # (Auto) 0.3 x10^3/uL (0.0-0.7) Basophils # (Auto) 0.1 x10^3/uL (0.0-0.2) Sodium Level 142 mmol/L (136-145) Potassium Level 3.9 mmol/L (3.5-5.1) Chloride Level 112 mmol/L (98-107) Carbon Dioxide Level 25 mmol/L (21-32) Anion Gap 5 (6-14) Blood Urea Nitrogen 19 mg/dL (8-26) Creatinine 0.8 mg/dL (0.7-1.3) Estimated GFR (Cockcroft-Gault) 95.0 BUN/Creatinine Ratio 24 (6-20) Glucose Level 121 mg/dL (70-99) Calcium Level 7.7 mg/dL (8.5-10.1) Total Bilirubin 0.2 mg/dL (0.2-1.0) Aspartate Amino Transf (AST/SGOT) 28 U/L (15-37) Alanine Aminotransferase (ALT/SGPT) 26 U/L (16-63) Alkaline Phosphatase 59 U/L (46-116) Total Protein 5.5 g/dL (6.4-8.2) Albumin 1.5 g/dL (3.4-5.0) Albumin/Globulin Ratio 0.4 (1.0-1.7) Laboratory Tests Test 06/27/19 12:19 06/27/19 17:53 06/28/19 05:28 06/28/19 05:30 Glucose (Fingerstick) 111 mg/dL (70-99) 117 mg/dL (70-99) 109 mg/dL (70-99) White Blood Count 8.8 x10^3/uL (4.0-11.0) Red Blood Count 3.90 x10^6/uL (4.30-5.70) Hemoglobin 11.4 g/dL (13.0-17.5) Hematocrit 34.5 % (39.0-53.0) Mean Corpuscular Volume 88 fL (79-100) Mean Corpuscular Hemoglobin 29 pg (25-35) Mean Corpuscular Hemoglobin Concent 33 g/dL (31-37) Red Cell Distribution Width 15.2 % (11.5-14.5) Platelet Count 382 x10^3/uL (140-400) Neutrophils (%) (Auto) 64 % (31-73) Lymphocytes (%) (Auto) 23 % (24-48) Monocytes (%) (Auto) 9 % (0-9) Eosinophils (%) (Auto) 4 % (0-3) Basophils (%) (Auto) 1 % (0-3) Neutrophils # (Auto) 5.6 x10^3/uL (1.8-7.7) Lymphocytes # (Auto) 2.0 x10^3/uL (1.0-4.8) Monocytes # (Auto) 0.8 x10^3/uL (0.0-1.1) Eosinophils # (Auto) 0.3 x10^3/uL (0.0-0.7) Basophils # (Auto) 0.1 x10^3/uL (0.0-0.2) Sodium Level 142 mmol/L (136-145) Potassium Level 3.9 mmol/L (3.5-5.1) Chloride Level 112 mmol/L (98-107) Carbon Dioxide Level 25 mmol/L (21-32) Anion Gap 5 (6-14) Blood Urea Nitrogen 19 mg/dL (8-26) Creatinine 0.8 mg/dL (0.7-1.3) Estimated GFR (Cockcroft-Gault) 95.0 BUN/Creatinine Ratio 24 (6-20) Glucose Level 121 mg/dL (70-99) Calcium Level 7.7 mg/dL (8.5-10.1) Total Bilirubin 0.2 mg/dL (0.2-1.0) Aspartate Amino Transf (AST/SGOT) 28 U/L (15-37) Alanine Aminotransferase (ALT/SGPT) 26 U/L (16-63) Alkaline Phosphatase 59 U/L (46-116) Total Protein 5.5 g/dL (6.4-8.2) Albumin 1.5 g/dL (3.4-5.0) Albumin/Globulin Ratio 0.4 (1.0-1.7) Medications Active Scripts Medications Dose Route/Sig Max Daily Dose Days Date Category Valproic Acid (Valproate Sodium) 250 Mg/5 Ml Solution 250 Mg PO DAILY 06/24/19 Reported Valproic Acid (Valproate Sodium) 250 Mg/5 Ml Solution 500 Mg PO HS 06/24/19 Reported Terazosin Hcl 2 Mg Capsule 1 Mg PO HS 06/24/19 Reported Ondansetron Odt (Ondansetron) 4 Mg Tab.rapdis 4 Mg PO Q6HRS PRN 06/24/19 Reported Lorazepam 2 Mg/1 Ml Oral.conc 0.5 Mg PO PRN Q8HRS PRN 06/24/19 Reported Famotidine 20 Mg Tablet 20 Mg PO BID 06/24/19 Reported Doxycycline Hyclate 100 Mg Tablet 1 Tab PO BID 10 06/24/19 Reported Cardizem Tablet (Diltiazem Hcl) 60 Mg Tablet 60 Mg PO QID 06/24/19 Reported Bactrim Ds Tablet (Sulfamethoxazole/Trimethoprim) 1 Each Tablet 1 Tab PO BID 10 06/24/19 Reported Bacitracin 3.5 Gm Oint...g. 1 [place] OD BID 06/24/19 Reported Artificial Tears Eye Drops (Dextran 70/Hypromellose) 15 Ml Drops 1 Drop EACHEYE QID PRN 06/24/19 Reported Eliquis (Apixaban) 5 Mg Tablet 5 Mg PO BID 06/24/19 Reported Amiodarone Hcl 200 Mg Tablet 200 Mg PO DAILY 06/24/19 Reported Acetaminophen 325 Mg Tablet 650 Mg PO PRN Q6HRS PRN 06/24/19 Reported Aspirin 81 Mg Tab.chew 1 Tab PO DAILY 04/23/19 Reported Mirtazapine 15 Mg Tablet 1 Tab PO QHS 04/22/19 Reported Multi-Day Vitamins (Multivitamin) 1 Each Tablet 1 Tab PO DAILY 04/17/15 Reported Impression . 1. Acute hypoxemic respiratory failure. 2. Septic shock. 3. Leukocytosis. 4. Urinary tract infection. 5. Status post pulseless electrical activity. ACLS protocol was followed. The patient had return of spontaneous circulation within 5 minutes. 6. Multiple antibiotic allergies. 7. Possible pneumonia. 8. Status post percutaneous endoscopic gastrostomy. 9. History of atrial fibrillation. 10. History of methicillin-resistant Staph aureus infection. Plan . SEDATION HAS BEEN OFF PT WITH MINIMAL RESPONSE D/W PAT FROM PALLIATIVE CARE IF PT DOES NOT IMPROVE IN NEXT 24-48 HOURS OFF SEDATION I WOULD FAVOR D/C SUPPORT AND ALLOW NATURAL WILL CONTINUE SUPPORT FOR NOW RAKESH DICKINSON MD Jun 28, 2019 08:34
[2019-06-28] MEDS: FAMOTIDINE 20 MG TABLET. PEG SCH ×2 (08:35→20:54)
[2019-06-28] MEDS: AMIODARONE HCL 200 MG TABLET. PEG SCH (08:35)
[2019-06-28] MEDS: APIXABAN 5 MG TABLET. PO SCH ×2 (08:35→20:54)
[2019-06-28] MEDS: ASPIRIN CHEWABLE 81 MG TABLET. PEG SCH (08:35)
[2019-06-28] MEDS: MULTIVITAMINS,THERAPEUTIC 5 ML ORAL LIQUID. PEG SCH (08:35)
--- NOTE | 2019-06-28 08:36 | RAD ---
EXAM: CHEST ONE VIEW. HISTORY: Respiratory failure. COMPARISON: 06/27/2019. FINDINGS: A frontal view of the chest is obtained. A right internal jugular central venous catheter has its tip in the superior cavoatrial junction. The inspiration is small with mild elevation of the right hemidiaphragm. There are no confluent infiltrates. There is no pneumothorax or pleural effusion. The heart is not enlarged. There are atherosclerotic calcifications of the aorta. IMPRESSION: 1. Small inspiration. No confluent infiltrates. Electronically signed by: Bradly Mcdonough MD (06/28/2019 8:33 AM) [facility]
[2019-06-28] MEDS: BACITRACIN/POLYMYXIN B OPHTH OINTMENT 3.5GM TUBE. OD SCH ×2 (08:37→20:55)
[2019-06-28 08:43] LABS: FIO2 ABG 35
--- NOTE | 2019-06-28 09:18 | PDOC ---
NELI MARSHALL SUBEDITOR 06/28/19 0918: CARDIO Progress Notes Date and Time Date of Service 06/28/2019 Time of Evaluation 0840 Subjective Subjective: Other (intubated) Vitals Vitals Vital Signs Date Time Temp Pulse Resp B/P (MAP) Pulse Ox O2 Delivery O2 Flow Rate FiO2 06/28/19 08:56 100 Ventilator 06/28/19 08:35 68 06/28/19 06:00 17 148/83 (104) 06/28/19 04:00 97.9 97.9 Weight Weight [ ] Input and Output Intake and Output Intake and Output 06/28/19 07:00 Intake Total 3679.85 ml Output Total 835 ml Balance 2844.85 ml Intake IV Total 591.85 ml Tube Feeding 2113 ml Other 975 ml Output Urine Total 835 ml Laboratory Labs Laboratory Tests Test 06/27/19 12:19 06/27/19 17:53 06/28/19 05:28 06/28/19 05:30 Glucose (Fingerstick) 111 mg/dL (70-99) 117 mg/dL (70-99) 109 mg/dL (70-99) White Blood Count 8.8 x10^3/uL (4.0-11.0) Red Blood Count 3.90 x10^6/uL (4.30-5.70) Hemoglobin 11.4 g/dL (13.0-17.5) Hematocrit 34.5 % (39.0-53.0) Mean Corpuscular Volume 88 fL (79-100) Mean Corpuscular Hemoglobin 29 pg (25-35) Mean Corpuscular Hemoglobin Concent 33 g/dL (31-37) Red Cell Distribution Width 15.2 % (11.5-14.5) Platelet Count 382 x10^3/uL (140-400) Neutrophils (%) (Auto) 64 % (31-73) Lymphocytes (%) (Auto) 23 % (24-48) Monocytes (%) (Auto) 9 % (0-9) Eosinophils (%) (Auto) 4 % (0-3) Basophils (%) (Auto) 1 % (0-3) Neutrophils # (Auto) 5.6 x10^3/uL (1.8-7.7) Lymphocytes # (Auto) 2.0 x10^3/uL (1.0-4.8) Monocytes # (Auto) 0.8 x10^3/uL (0.0-1.1) Eosinophils # (Auto) 0.3 x10^3/uL (0.0-0.7) Basophils # (Auto) 0.1 x10^3/uL (0.0-0.2) Sodium Level 142 mmol/L (136-145) Potassium Level 3.9 mmol/L (3.5-5.1) Chloride Level 112 mmol/L (98-107) Carbon Dioxide Level 25 mmol/L (21-32) Anion Gap 5 (6-14) Blood Urea Nitrogen 19 mg/dL (8-26) Creatinine 0.8 mg/dL (0.7-1.3) Estimated GFR (Cockcroft-Gault) 95.0 BUN/Creatinine Ratio 24 (6-20) Glucose Level 121 mg/dL (70-99) Calcium Level 7.7 mg/dL (8.5-10.1) Total Bilirubin 0.2 mg/dL (0.2-1.0) Aspartate Amino Transf (AST/SGOT) 28 U/L (15-37) Alanine Aminotransferase (ALT/SGPT) 26 U/L (16-63) Alkaline Phosphatase 59 U/L (46-116) Total Protein 5.5 g/dL (6.4-8.2) Albumin 1.5 g/dL (3.4-5.0) Albumin/Globulin Ratio 0.4 (1.0-1.7) Test 06/28/19 07:30 O2 Saturation 99 % (92-99) Arterial Blood pH 7.42 (7.35-7.45) Arterial Blood pCO2 at Patient Temp 35 mmHg (35-46) Arterial Blood pO2 at Patient Temp 134 mmHg (65-108) Arterial Blood HCO3 22 mmol/L (21-28) Arterial Blood Base Excess -2 mmol/L (-3-3) FiO2 35 Microbiology Micro Microbiology 06/25/19 - Final, Resulted 06/25/19 - Final, Resulted 06/25/19 - Final, Resulted 06/25/19 - Preliminary, Resulted 06/25/19 - Preliminary, Resulted 06/25/19 - Preliminary, Resulted 06/25/19 Gram Stain Evaluation - Final, Resulted 06/25/19 Sputum Culture - Preliminary, Resulted 06/25/19 Sputum Result 1 - Final, Resulted 06/24/19 Urine Culture - Final, Complete 06/24/19 Urine Culture Result 1 (MALINI) - Final, Complete 06/24/19 Blood Culture - Preliminary, Resulted NO GROWTH AFTER 3 DAYS Physical Exam HEENT: Neck Supple W Full Motion Chest: Symmetric LUNGS: Other (diminished, intubated) Heart: RRR (SR no significant ectopies) Abdomen: Other (soft) Extremities: Other (2+ bilateral Le pitting edema) Neurology: other (unresponsive. ) Assessment Assessment 1. Sepsis/shock 2. PEA arrest: 5 min to ROSC 3. Acute respiratory failure: intubated/vent. per pulmonary 4. UTI/right index finger wound infection/Pneumonia/possible Gtube infection: ID following 5. 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 Hx of of PAFIB: maintaining SR with amiodarone 7. Hx of autism and mental retardation 8. Hx of hypoglycemic reaction 9. Anoxic/metabolic encephalopathy: remains unresponsive since off sedation yesterday. 10. Cardiomyopathy: presumed NICM. EF 40% Recommendations 1. Still needing levophed. DC cardizem. Continue amiodarone. On apixaban 2. Antibiotics per ID 3. Consider palliative consult, 4. Lasix PRN. Will reeval for CHF regimen pending neurological outlook. Hold BB and ACEi for now with continued levophed use. 5. Supportive care AIMEE MALDONADO MD 06/29/19 0920: CARDIO Progress Notes Assessment Assessment Patient seen and examined 06/28/19. Agree with SOCIAL MEDIA MANAGER's assessment and plan. Maintaining sinus rhythm with amiodarone. Continue to wean pressors as tolerated. Continue antibiotics for sepsis per ID team. NELI MARSHALL APRN Jun 28, 2019 09:18 AIMEE MALDONADO MD Jun 29, 2019 09:20
[2019-06-28] MEDS ORDERED: FUROSEMIDE 40 MG/4 ML VIAL. IVP ONE (09:30)
--- NOTE | 2019-06-28 11:18 | NUR ---
SS following up with discharge planning. Pt currently remains on the vent. Palliative Care consulted for goals of care. SS will await further communication from Palliative Care and will proceed accordingly.
--- NOTE | 2019-06-28 12:24 | PDOC2 ---
PALLIATIVE CARE Palliative Care Note Palliative Care Consult requested by Dr. Marquez.to address goals of care. Patient remains on Vent. off sedation x 24 hours 1. Severe sepsis, multifactorial including pneumonia, urinary tract infection and possible right index finger infection. 2. Status post pulseless electrical activity, cardiac arrest with subsequent acute respiratory failure requiring intubation and mechanical ventilation. 3. He is currently on aztreonam, Flagyl, micafungin as well as vancomycin. 4. Other medical problems include: A. Paroxysmal supraventricular tachycardia. Heart rate is much improved now after we started him on amiodarone. B. Moderate aortic stenosis. C. Mental retardation with autism. 5. The patient continued to be unresponsive despite discontinuation of his sedation for almost 24 hours. Spoke with sister /DPOA Corinna [phone]. Updated as above. States she wants 2 physicians to make any decisions about further care. Spoke with Divina/Sister. Reviewed above. states her and her sister have spoken and they want physician to make decisions Copy of AD reviewed. On chart. Maryam Moreau is listed as alternate for decisions. No phone number CT head pending. Dr. Mathew consulted. Spoke with Dr. Roberts. Will wait 24-48 hours to see if improvement. Code Status; Full Code. OTONIEL MICHEL Jun 28, 2019 12:24
[2019-06-28] MEDS: ANTI-COAG MONITOR BY PHARMACY. MC PRN (12:35)
--- NOTE | 2019-06-28 13:27 | RAD ---
EXAM: CT HEAD WITHOUT CONTRAST. HISTORY: Altered mental status. TECHNIQUE: Computed tomography of the head was performed without intravenous contrast. One or more of the following individualized dose reduction techniques were utilized for this examination: 1. Automated exposure control. 2. Adjustment of the mA and/or kV according to patient size. 3. Use of iterative reconstruction technique. COMPARISON: None. FINDINGS: There is no intracranial hemorrhage. Hypoattenuation within the white matter indicates moderate chronic microangiopathic change. Prominence of the lateral ventricles and hemispheric sulci indicates moderate atrophy. The visualized paranasal sinuses appear clear. The orbits are unremarkable. There are small right and moderate left mastoid effusions. The calvarium reveals no suspicious lesions. There are atherosclerotic calcifications of the internal carotid and vertebral arteries. IMPRESSION: 1. No acute intracranial findings. 2. Moderate atrophy and chronic microangiopathic white matter change. Electronically signed by: Bradly Mcdonough MD (06/28/2019 1:24 PM) [facility]
[2019-06-28] MEDS: NOREPINEPHRIN 8MG/250ML PREMIX 250 ML IV PRN (14:20)
--- NOTE | 2019-06-28 15:23 | PDOC2 ---
NEUROLOGY CONSULT Date of Admission Date of Admission DATE: 06/28/19 TIME: 15:04 Reason for Consult Reason for Consult: IMPRESSION: Metabolic encephalopathy. Hypoxia encephalopathy. Respiratory failure. ARDS. fever. Leukocytosis. Pulmonary edema likely. Renal failure. CHF. DM. Hx of cardiac arrest. Recent sepsis. Autism. RECOMMENDATIONS/PLAN: Continue life support in ICU at the present time. Treat medical diseases. EEG after sedation is off. Lab: see orders. HCT on 06/28/19: negative except brain atrophy. HISTORY OF PRESENT ILLNESS This is a 74-year-old male patient who is a resident of [facility] with above medical diseases and Hx of PSVT was admitted on 06/24/19 due to symptoms of vomiting and fever. While was in ED, he had bradycardia that went to PEA. 5min to ROSC and he received atropine initially then 1 dose of epinephrine. He was intubated. Neurology was requested for consultation on 06/28/19. PAST MEDICAL HISTORY Cardiovascular: HTN, Syncope, Aortic stenosis (moderate), Other (PSVT; chronic RBBB) CENTRAL NERVOUS SYSTEM: Other (Mental retardation) GI: GERD, Other (dysphagia) Hepatobiliary: No pertinent hx Psych: Other (autism) Musculoskeletal: Osteoarthritis Rheumatologic: No pertinent hx Infectious disease: Other (MRSA) Renal/: UTI, Benign prostatic enlarg. Endocrine: No pertinent hx, Other (hypoglycemia) PAST SURGICAL HISTORY TURP, ligia fundoplication, Gtube placement. FAMILY HISTORY Unknown ALLERGIES Coded Allergies: Cephalosporins (Verified Allergy, Intermediate, 04/27/19) Penicillins (Verified Allergy, Intermediate, 04/27/19) Carbamazepine (Verified Allergy, Intermediate, 04/27/19) Meropenem (Verified Allergy, Intermediate, 04/27/19) BETA LACTAMS Penicillamine (Verified Allergy, Intermediate, 04/27/19) I S O L A T I O N *CONTACT* (Verified Allergy, Unknown, 04/27/19) mrsa + MEDICATIONS: Refer to [facility] SOCIAL HISTORY: [facility] in [facility]. Denies current smoking, drinking, and illicit drug use. REVIEW OF SYSTEMS: Constitutional: No malnutrition, cachexia. Head: No recent traumatic brain or head injury. Skin: No edema, or rash. Ear: No infection. Eyes: No vision loss or color blindness. Nose: No bleeding or purulent discharges. Hearing: hearing decrease. Neck: No injury. Cardiac: CHF. Pulmonary: SOB. GI: No GI ulcer, GI bleeding. Urinary/genital: Renal failure. Endocrinologic: Diabetes Mellitus. Skeletomuscular: No muscular atrophy, deformity. Neurological: see HP. Psychiatric: Autism. Otherwise, not [id number] review of systems. PHYSICAL EXAMINATION: General appearance is in subacute distress. HEENT: Normocephalic and nontraumatic. Eyes, nose, ears, and throat are unremarkable. Neck is supple. No lymphadenopathy. No crepitus. Cardiovascular: S1, S2. Pulmonary: On vent. Abdomen: Bowel sounds are positive. Extremities: No rash, lesions. NEUROLOGICAL EXAMINATION: On vent. Unresponsive. Not oriented to time, place and person. PERRL. EOMI not elicited. CN: no focal findings. Muscle tone: Decreased. Muscle strength: Minimla movements noted to stimuli. DTR: 1 Plantar reflex: Neutral response bilaterally Gait: Unable to walk in this mentation. Sensory exam: Minimal response to stimuli. Not able to access cerebellar signs. F-T-N test not performed. Current Medications Current Medications Current Medications Sodium Chloride 1,000 ml @ 1,920 mls/hr Q32M IV Last administered on 06/24/19at 18:31; Start 06/24/19 at 16:58; Stop 06/24/19 at 17:58; Status DC Levofloxacin/ Dextrose 150 ml @ 100 mls/hr 1X ONCE IV Last administered on 06/24/19at 18:07; Start 06/24/19 at 17:00; Stop 06/24/19 at 18:29; Status DC Morphine Sulfate (Morphine Sulfate) 2 mg PRN Q15MIN PRN IV/SQ PAIN GREATER THAN 3/10; Start 06/24/19 at 17:00; Stop 06/25/19 at 16:59; Status DC Ondansetron HCl (Zofran) 4 mg 1X ONCE IV Last administered on 06/24/19at 18:04; Start 06/24/19 at 18:00; Stop 06/24/19 at 18:01; Status DC Famotidine (Pepcid Vial) 20 mg 1X ONCE IVP Last administered on 06/24/19at 18:05; Start 06/24/19 at 18:00; Stop 06/24/19 at 18:01; Status DC Ondansetron HCl (Zofran) 4 mg PRN Q8HRS PRN IV NAUSEA/VOMITING; Start 06/24/19 at 18:30; Stop 06/25/19 at 18:29; Status DC Morphine Sulfate (Morphine Sulfate) 2 mg PRN Q2HR PRN IV PAIN; Start 06/24/19 at 18:30; Stop 06/25/19 at 18:29; Status DC Sodium Chloride 1,000 ml @ 125 mls/hr 1X ONCE IV Last administered on 05/27 09/12at 19:57; Start 06/24/19 at 18:30; Stop 06/25/19 at 02:29; Status DC Fentanyl Citrate (Fentanyl 2ml Vial) 25 mcg PRN Q1HR PRN IV SEE COMMENTS; Start 06/24/19 at 19:45 Fentanyl Citrate (Fentanyl 2ml Vial) 50 mcg PRN Q1HR PRN IV SEE COMMENTS; Start 06/24/19 at 19:45 Chlorhexidine Gluconate (Peridex) 15 ml BID MM Last administered on 06/24/19at 23:19; Start 06/24/19 at 21:00; Stop 06/25/19 at 17:54; Status DC Midazolam HCl 100 ml @ 1 mls/hr CONT PRN IV SEE PROTOCOL Last administered on 06/26/19at 18:15; Start 06/24/19 at 19:45 Norepinephrine Bitartrate 250 ml @ 13.275 mls/ hr CONT PRN IV SEE I/O RECORD Last administered on 06/28/19at 14:20; Start 06/24/19 at 20:15 Etomidate (Amidate) 20 mg STK-MED ONCE IV ; Start 06/24/19 at 20:46; Stop 06/24/19 at 20:47; Status DC Midazolam HCl (Versed) 5 mg STK-MED ONCE .ROUTE ; Start 06/24/19 at 20:47; Stop 06/24/19 at 20:47; Status DC Succinylcholine Chloride (Anectine) 200 mg STK-MED ONCE .ROUTE ; Start 06/24/19 at 20:47; Stop 06/24/19 at 20:47; Status DC Sodium Chloride 1,000 ml @ 1,000 mls/hr 1X ONCE IV ; Start 06/24/19 at 21:45; Stop 06/25/19 at 01:41; Status DC Sodium Chloride 1,000 ml @ 1,000 mls/hr 1X ONCE IV Last administered on 06/24/19at 19:41; Start 06/24/19 at 21:45; Stop 06/25/19 at 01:41; Status DC Levofloxacin/ Dextrose (Levaquin Per Pharmacy) 1 each PRN DAILY PRN MC SEE COMMENTS; Start 06/24/19 at 22:45; Stop 06/25/19 at 10:50; Status DC Vancomycin HCl (Vanco Per Pharmacy) 1 each PRN DAILY PRN MC SEE COMMENTS Last administered on 06/27/19at 09:08; Start 06/24/19 at 22:45; Stop 06/28/19 at 07:46; Status DC Fentanyl Citrate 30 ml @ 0 mls/hr CONT PRN IV SEE PROTOCOL Last administered on 06/27/19at 06:36; Start 06/24/19 at 23:00 Vancomycin HCl 1.75 gm/Sodium Chloride 500 ml @ 250 mls/hr 1X ONCE IV Last administered on 06/24/19at 23:31; Start 06/24/19 at 23:15; Stop 06/25/19 at 01:14; Status DC Levofloxacin/ Dextrose 150 ml @ 100 mls/hr Q24H IV ; Start 06/25/19 at 18:00; Stop 06/25/19 at 07:55; Status DC Vancomycin HCl 1 gm/Sodium Chloride 250 ml @ 250 mls/hr Q24H IV Last administered on 06/25/19at 23:04; Start 06/25/19 at 23:30; Stop 06/26/19 at 23:28; Status DC Vancomycin HCl (Vancomycin Trough Level) 1 each 1X ONCE MC Last administered on 06/26/19at 23:00; Start 06/26/19 at 23:00; Stop 06/26/19 at 23:01; Status DC Aztreonam (Azactam) 2 gm Q6HRS IVP Last administered on 06/28/19at 05:43; Start 06/25/19 at 10:00; Stop 06/28/19 at 07:46; Status DC Metronidazole 100 ml @ 100 mls/hr Q8HRS IV Last administered on 06/28/19at 05:43; Start 06/25/19 at 08:30; Stop 06/28/19 at 07:46; Status DC Micafungin Sodium 100 mg/Dextrose 100 ml @ 100 mls/hr DAILY08 IV Last administered on 06/27/19at 08:37; Start 06/25/19 at 09:00; Stop 06/28/19 at 07:46; Status DC Furosemide (Lasix) 20 mg 1X ONCE IVP Last administered on 06/25/19at 09:37; Start 06/25/19 at 09:15; Stop 06/25/19 at 09:16; Status DC Enoxaparin Sodium (Lovenox 40mg Syringe) 40 mg Q24H SQ Last administered on 06/25/19at 13:30; Start 06/25/19 at 13:00; Stop 06/26/19 at 10:15; Status DC Epinephrine HCl (EPINEPHrine SYRINGE) 2 mg STK-MED ONCE .ROUTE ; Start 06/24/19 at 10:00; Stop 06/25/19 at 17:20; Status DC Metoprolol Tartrate (Lopressor Vial) 5 mg 1X ONCE IVP Last administered on 06/25/19at 18:04; Start 06/25/19 at 18:30; Stop 06/25/19 at 18:31; Status DC Metoprolol Tartrate (Lopressor Vial) 5 mg 1X ONCE IVP Last administered on 06/25/19at 18:53; Start 06/25/19 at 18:45; Stop 06/25/19 at 18:46; Status DC Insulin Human Lispro (HumaLOG) 0-5 UNITS TIDWMEALS SQ ; Start 06/25/19 at 19:30; Stop 06/27/19 at 07:23; Status DC Dextrose (Dextrose 50%-Water Syringe) 12.5 gm PRN Q15MIN PRN IV SEE COMMENTS; Start 06/25/19 at 18:45 Metoprolol Tartrate (Lopressor Vial) 5 mg PRN Q2HR PRN IVP TACHYCARDIA Last administered on 06/26/19at 08:22; Start 06/26/19 at 00:00 Tigecycline 100 mg/Dextrose 100 ml @ 200 mls/hr 1X ONCE IV Last administered on 06/26/19at 07:51; Start 06/26/19 at 07:00; Stop 06/26/19 at 07:29; Status DC Tigecycline 50 mg/ Dextrose 50 ml @ 100 mls/hr Q12H IV Last administered on 06/28/19at 08:45; Start 06/26/19 at 19:00 Acetaminophen (Tylenol) 650 mg PRN Q6HRS PRN PO FEVER; Start 06/26/19 at 10:15 Amiodarone HCl (Cordarone) 200 mg DAILY PEG Last administered on 06/28/19at 08:35; Start 06/26/19 at 11:00 Apixaban (Eliquis) 5 mg BID PO Last administered on 06/28/19 08:35; Start 06/26/19 at 11:00 Aspirin (Children'S Aspirin) 81 mg DAILY PEG Last administered on 06/28/19 08:35; Start 06/26/19 at 11:00 Famotidine (Pepcid) 20 mg BID PEG Last administered on 06/28/19 08:35; Start 06/26/19 at 11:00 Lorazepam (Ativan Intensol) 0.5 mg PRN Q8HRS PRN PO ANXIETY / AGITATION; Start 06/26/19 at 10:15; Stop 06/26/19 at 10:35; Status DC Mirtazapine (Remeron) 15 mg QHS PO Last administered on 06/27/19at 23:05; Start 06/26/19 at 21:00 Ondansetron HCl (Zofran Odt) 4 mg PRN Q6HRS PRN PO NAUSEA; Start 06/26/19 at 10:15 Trimethoprim/ Sulfamethoxazole (Bactrim Ds) 1 tab BID PO ; Start 06/26/19 at 21:00; Status UNV Bacitracin/ Polymyxin B Sulfate (Polysporin Ophth) 0.25 inch BID OD Last administered on 06/28/19at 08:37; Start 06/26/19 at 11:00 Artificial Tears (Artificial Tears) 1 drop PRN QID PRN OU DRY EYE; Start 06/26/19 at 11:00 Diltiazem HCl (Cardizem) 60 mg Q6HRS PEG ; Start 06/26/19 at 12:00; Stop 06/28/19 at 09:11; Status DC Multivitamins (Thera M Plus) 1 tab DAILY PO ; Start 06/27/19 at 09:00; Stop 06/27/19 at 07:29; Status DC Terazosin HCl (Hytrin) 1 mg QHS PO ; Start 06/26/19 at 21:00 Valproic Acid (Depakene) 250 mg DAILY PEG Last administered on 06/28/19 08:31; Start 06/26/19 at 11:00 Valproic Acid (Depakene) 500 mg HS PEG Last administered on 06/27/19at 23:05; Start 06/26/19 at 21:00 Lorazepam (Ativan Intensol) 0.5 mg PRN Q8HRS PRN PEG ANXIETY / AGITATION; Start 06/26/19 at 10:35 Vancomycin HCl 1 gm/Sodium Chloride 250 ml @ 250 mls/hr Q12H IV Last administered on 06/28/19 01:18; Start 06/26/19 at 23:30; Stop 06/28/19 at 07:46; Status DC Vancomycin HCl (Vancomycin Trough Level) 1 each 1X ONCE MC Last administered on 06/28/19 11:00; Start 06/28/19 at 11:00; Stop 06/28/19 at 11:01; Status DC Insulin Human Lispro (HumaLOG) 0-5 UNITS Q6HRS SQ ; Start 06/27/19 at 07:30 Dextrose (Dextrose 50%-Water Syringe) 12.5 gm PRN Q15MIN PRN IV SEE COMMENTS; Start 06/27/19 at 07:30; Status UNV Multivitamins/ Minerals Therapeutic (Centrum Multivit-Mineral Liq) 5 ml DAILY PEG Last administered on 06/28/19 08:35; Start 06/27/19 at 09:00 Info (Anti-Coagulation Monitoring By Pharmacy) 1 each PRN DAILY PRN MC SEE COMMENTS Last administered on 06/28/19at 12:35; Start 06/28/19 at 07:45 Furosemide (Lasix) 20 mg 1X ONCE IVP Last administered on 06/28/19at 10:26; Start 06/28/19 at 09:30; Stop 06/28/19 at 09:31; Status DC Active Scripts Active Reported Valproic Acid (Valproate Sodium) 250 Mg/5 Ml Solution 250 Mg PO DAILY Valproic Acid (Valproate Sodium) 250 Mg/5 Ml Solution 500 Mg PO HS Terazosin Hcl 2 Mg Capsule 1 Mg PO HS Ondansetron Odt (Ondansetron) 4 Mg Tab.rapdis 4 Mg PO Q6HRS PRN Lorazepam 2 Mg/1 Ml Oral.conc 0.5 Mg PO PRN Q8HRS PRN Famotidine 20 Mg Tablet 20 Mg PO BID Doxycycline Hyclate 100 Mg Tablet 1 Tab PO BID 10 Days Cardizem Tablet (Diltiazem Hcl) 60 Mg Tablet 60 Mg PO QID Bacitracin 3.5 Gm Oint...g. 1 Hesham OD BID Artificial Tears Eye Drops (Dextran 70/Hypromellose) 15 Ml Drops 1 Drop EACHEYE QID PRN Eliquis (Apixaban) 5 Mg Tablet 5 Mg PO BID Amiodarone Hcl 200 Mg Tablet 200 Mg PO DAILY Acetaminophen 325 Mg Tablet 650 Mg PO PRN Q6HRS PRN Aspirin 81 Mg Tab.chew 1 Tab PO DAILY Mirtazapine 15 Mg Tablet 1 Tab PO QHS Multi-Day Vitamins (Multivitamin) 1 Each Tablet 1 Tab PO DAILY Allergies Allergies: Allergies Coded Allergies Type Severity Reaction Last Updated Verified Cephalosporins Allergy Intermediate 04/27/19 Yes Penicillins Allergy Intermediate 04/27/19 Yes carbamazepine Allergy Intermediate 04/27/19 Yes meropenem Allergy Intermediate 04/27/19 Yes penicillamine Allergy Intermediate 04/27/19 Yes I S O L A T I O N *CONTACT* Allergy Unknown 04/27/19 Yes ROS Review of System The patient denies any associated fevers, chills, headache, ear pain, rhinorrhea, sore throat, stiff neck, productive cough, chest pain, shortness of breath, back or flank pain, abdominal pain, nausea, vomiting, diarrhea, c onstipation, dysuria, rash, numbness, weakness, tingling, incontinence, difficulty ambulating, or diaphoresis. Physical Exam Physical Exam General: Well developed, well nourished, no acute distress, well appearing HEENT: Pupils equally round and reactive to light, EOMI, no discharge, normal conjunctiva Neck: Supple, no nuchal rigidity, no JVD, trachea midline, no tenderness Cardiac: RRR, no murmurs, no gallops, no rubs Chest/Lungs: CTAB, no wheeze, no rhonchi, no crackles Abdomen: soft, non-distended, no guarding, no peritoneal signs, non-tender Back: No tenderness Extremities: no edema, pulses intact, non-tender,capillary refill <3 sec bilateral upper and lower extremities, Neuro: Alert and oriented x 4, no focal deficits, normal speech Vitals Vitals: Vital Signs Date Time Temp Pulse Resp B/P (MAP) Pulse Ox O2 Delivery O2 Flow Rate FiO2 06/28/19 14:00 72 16 115/70 (85) 100 Ventilator 06/28/19 12:00 98.5 98.5 06/28/19 12:00 40.0 Labs Labs Laboratory Tests Test 06/26/19 16:42 06/26/19 23:00 06/27/19 05:00 06/27/19 08:00 Glucose (Fingerstick) 133 mg/dL (70-99) Vancomycin Level Trough 4.3 mcg/mL (10.0-20.0) Vancomycin Last Dose Date 06/25/19 Vancomycin Last Dose Time 2330 White Blood Count 11.8 x10^3/uL (4.0-11.0) Red Blood Count 3.81 x10^6/uL (4.30-5.70) Hemoglobin 11.3 g/dL (13.0-17.5) Hematocrit 33.8 % (39.0-53.0) Mean Corpuscular Volume 89 fL (79-100) Mean Corpuscular Hemoglobin 30 pg (25-35) Mean Corpuscular Hemoglobin Concent 34 g/dL (31-37) Red Cell Distribution Width 15.5 % (11.5-14.5) Platelet Count 365 x10^3/uL (140-400) Neutrophils (%) (Auto) 69 % (31-73) Lymphocytes (%) (Auto) 18 % (24-48) Monocytes (%) (Auto) 9 % (0-9) Eosinophils (%) (Auto) 4 % (0-3) Basophils (%) (Auto) 1 % (0-3) Neutrophils # (Auto) 8.1 x10^3/uL (1.8-7.7) Lymphocytes # (Auto) 2.1 x10^3/uL (1.0-4.8) Monocytes # (Auto) 1.0 x10^3/uL (0.0-1.1) Eosinophils # (Auto) 0.5 x10^3/uL (0.0-0.7) Basophils # (Auto) 0.1 x10^3/uL (0.0-0.2) Sodium Level 143 mmol/L (136-145) Potassium Level 4.0 mmol/L (3.5-5.1) Chloride Level 111 mmol/L (98-107) Carbon Dioxide Level 25 mmol/L (21-32) Anion Gap 7 (6-14) Blood Urea Nitrogen 16 mg/dL (8-26) Creatinine 0.8 mg/dL (0.7-1.3) Estimated GFR (Cockcroft-Gault) 95.0 BUN/Creatinine Ratio 20 (6-20) Glucose Level 130 mg/dL (70-99) Calcium Level 7.7 mg/dL (8.5-10.1) Magnesium Level 2.0 mg/dL (1.8-2.4) Total Bilirubin 0.3 mg/dL (0.2-1.0) Aspartate Amino Transf (AST/SGOT) 20 U/L (15-37) Alanine Aminotransferase (ALT/SGPT) 27 U/L (16-63) Alkaline Phosphatase 62 U/L (46-116) Total Protein 5.1 g/dL (6.4-8.2) Albumin 1.6 g/dL (3.4-5.0) Albumin/Globulin Ratio 0.5 (1.0-1.7) Procalcitonin 0.43 ng/mL (0.00-0.10) O2 Saturation 99 % (92-99) Arterial Blood pH 7.41 (7.35-7.45) Arterial Blood pCO2 at Patient Temp 34 mmHg (35-46) Arterial Blood pO2 at Patient Temp 137 mmHg (65-108) Arterial Blood HCO3 21 mmol/L (21-28) Arterial Blood Base Excess -3 mmol/L (-3-3) FiO2 35% Test 06/27/19 12:19 06/27/19 17:53 06/28/19 05:28 06/28/19 05:30 Glucose (Fingerstick) 111 mg/dL (70-99) 117 mg/dL (70-99) 109 mg/dL (70-99) White Blood Count 8.8 x10^3/uL (4.0-11.0) Red Blood Count 3.90 x10^6/uL (4.30-5.70) Hemoglobin 11.4 g/dL (13.0-17.5) Hematocrit 34.5 % (39.0-53.0) Mean Corpuscular Volume 88 fL (79-100) Mean Corpuscular Hemoglobin 29 pg (25-35) Mean Corpuscular Hemoglobin Concent 33 g/dL (31-37) Red Cell Distribution Width 15.2 % (11.5-14.5) Platelet Count 382 x10^3/uL (140-400) Neutrophils (%) (Auto) 64 % (31-73) Lymphocytes (%) (Auto) 23 % (24-48) Monocytes (%) (Auto) 9 % (0-9) Eosinophils (%) (Auto) 4 % (0-3) Basophils (%) (Auto) 1 % (0-3) Neutrophils # (Auto) 5.6 x10^3/uL (1.8-7.7) Lymphocytes # (Auto) 2.0 x10^3/uL (1.0-4.8) Monocytes # (Auto) 0.8 x10^3/uL (0.0-1.1) Eosinophils # (Auto) 0.3 x10^3/uL (0.0-0.7) Basophils # (Auto) 0.1 x10^3/uL (0.0-0.2) Sodium Level 142 mmol/L (136-145) Potassium Level 3.9 mmol/L (3.5-5.1) Chloride Level 112 mmol/L (98-107) Carbon Dioxide Level 25 mmol/L (21-32) Anion Gap 5 (6-14) Blood Urea Nitrogen 19 mg/dL (8-26) Creatinine 0.8 mg/dL (0.7-1.3) Estimated GFR (Cockcroft-Gault) 95.0 BUN/Creatinine Ratio 24 (6-20) Glucose Level 121 mg/dL (70-99) Calcium Level 7.7 mg/dL (8.5-10.1) Total Bilirubin 0.2 mg/dL (0.2-1.0) Aspartate Amino Transf (AST/SGOT) 28 U/L (15-37) Alanine Aminotransferase (ALT/SGPT) 26 U/L (16-63) Alkaline Phosphatase 59 U/L (46-116) Total Protein 5.5 g/dL (6.4-8.2) Albumin 1.5 g/dL (3.4-5.0) Albumin/Globulin Ratio 0.4 (1.0-1.7) Test 06/28/19 07:30 06/28/19 11:08 06/28/19 11:11 O2 Saturation 99 % (92-99) Arterial Blood pH 7.42 (7.35-7.45) Arterial Blood pCO2 at Patient Temp 35 mmHg (35-46) Arterial Blood pO2 at Patient Temp 134 mmHg (65-108) Arterial Blood HCO3 22 mmol/L (21-28) Arterial Blood Base Excess -2 mmol/L (-3-3) FiO2 35 Glucose (Fingerstick) 120 mg/dL (70-99) Vancomycin Level Trough 14.0 mcg/mL (10.0-20.0) Vancomycin Last Dose Date 06/27/19 Vancomycin Last Dose Time 2329 Laboratory Tests Test 06/27/19 17:53 06/28/19 05:28 06/28/19 05:30 06/28/19 07:30 Glucose (Fingerstick) 117 mg/dL (70-99) 109 mg/dL (70-99) White Blood Count 8.8 x10^3/uL (4.0-11.0) Red Blood Count 3.90 x10^6/uL (4.30-5.70) Hemoglobin 11.4 g/dL (13.0-17.5) Hematocrit 34.5 % (39.0-53.0) Mean Corpuscular Volume 88 fL (79-100) Mean Corpuscular Hemoglobin 29 pg (25-35) Mean Corpuscular Hemoglobin Concent 33 g/dL (31-37) Red Cell Distribution Width 15.2 % (11.5-14.5) Platelet Count 382 x10^3/uL (140-400) Neutrophils (%) (Auto) 64 % (31-73) Lymphocytes (%) (Auto) 23 % (24-48) Monocytes (%) (Auto) 9 % (0-9) Eosinophils (%) (Auto) 4 % (0-3) Basophils (%) (Auto) 1 % (0-3) Neutrophils # (Auto) 5.6 x10^3/uL (1.8-7.7) Lymphocytes # (Auto) 2.0 x10^3/uL (1.0-4.8) Monocytes # (Auto) 0.8 x10^3/uL (0.0-1.1) Eosinophils # (Auto) 0.3 x10^3/uL (0.0-0.7) Basophils # (Auto) 0.1 x10^3/uL (0.0-0.2) Sodium Level 142 mmol/L (136-145) Potassium Level 3.9 mmol/L (3.5-5.1) Chloride Level 112 mmol/L (98-107) Carbon Dioxide Level 25 mmol/L (21-32) Anion Gap 5 (6-14) Blood Urea Nitrogen 19 mg/dL (8-26) Creatinine 0.8 mg/dL (0.7-1.3) Estimated GFR (Cockcroft-Gault) 95.0 BUN/Creatinine Ratio 24 (6-20) Glucose Level 121 mg/dL (70-99) Calcium Level 7.7 mg/dL (8.5-10.1) Total Bilirubin 0.2 mg/dL (0.2-1.0) Aspartate Amino Transf (AST/SGOT) 28 U/L (15-37) Alanine Aminotransferase (ALT/SGPT) 26 U/L (16-63) Alkaline Phosphatase 59 U/L (46-116) Total Protein 5.5 g/dL (6.4-8.2) Albumin 1.5 g/dL (3.4-5.0) Albumin/Globulin Ratio 0.4 (1.0-1.7) O2 Saturation 99 % (92-99) Arterial Blood pH 7.42 (7.35-7.45) Arterial Blood pCO2 at Patient Temp 35 mmHg (35-46) Arterial Blood pO2 at Patient Temp 134 mmHg (65-108) Arterial Blood HCO3 22 mmol/L (21-28) Arterial Blood Base Excess -2 mmol/L (-3-3) FiO2 35 Test 06/28/19 11:08 06/28/19 11:11 Glucose (Fingerstick) 120 mg/dL (70-99) Vancomycin Level Trough 14.0 mcg/mL (10.0-20.0) Vancomycin Last Dose Date 06/27/19 Vancomycin Last Dose Time [id number] VANESSA EASTMAN MD Jun 28, 2019 15:23
[2019-06-28] MEDS: TERAZOSIN 1 MG CAPSULE. PO SCH ×2 (20:14→21:00)
[2019-06-28] MEDS: MIRTAZAPINE 15 MG TABLET PO SCH (20:55)
[2019-06-28] MEDS: POLYVINYL ALCOHOL 1.4% OPHTH SOLUTION 15ML BOTTLE. OU PRN (20:55)
[2019-06-29] VITALS (26 sets, daily range): BP systolic 12–144; BP diastolic 55–90
[2019-06-29] MEDS: INSULIN LISPRO 300 UNITS/3 ML VIAL. SQ SCH ×4 (06:00→18:00)
--- NOTE | 2019-06-29 07:31 | PDOC ---
Infectious Disease Note Subjective Subjective Intubated, not sedated and no response ROS ROS unable to do Vital Sign Vital Signs Vital Signs Date Time Temp Pulse Resp B/P (MAP) Pulse Ox O2 Delivery O2 Flow Rate FiO2 06/29/19 06:00 76 18 95/62 (73) 100 Ventilator 06/29/19 04:00 98.6 98.6 06/29/19 03:00 35.0 Physical Exam PHYSICAL EXAM CONSTITUTIONAL: He is intubated, HEENT: Pupils are small, reactive. Normal conjunctivae. NECK: Supple, no JVD. LUNGS: Decreased at the bases. HEART: S1, S2. ABDOMEN: Soft. PEG tube without signs of any complications. GENITOURINARY: Had a Ortega in place. EXTREMITIES: Without clubbing, cyanosis or gross edema. His right index finger, about the nail has some erythema, has some peeling, drying of the skin. There is no pus. Do not appear to be tender. He has good radial pulse, on ulnar decreased, but palpable. SKIN: Warm to touch without signs of rash. IVs: he has a right IJ and a right hand peripheral IV, both appear to be clean. DIRECTOR SPEECH LANGUAGE no response, not sedated Labs Lab Laboratory Tests Test 06/28/19 07:30 06/28/19 11:08 06/28/19 11:11 06/28/19 18:06 O2 Saturation 99 % (92-99) Arterial Blood pH 7.42 (7.35-7.45) Arterial Blood pCO2 at Patient Temp 35 mmHg (35-46) Arterial Blood pO2 at Patient Temp 134 mmHg (65-108) Arterial Blood HCO3 22 mmol/L (21-28) Arterial Blood Base Excess -2 mmol/L (-3-3) FiO2 35 Glucose (Fingerstick) 120 mg/dL (70-99) 130 mg/dL (70-99) Vancomycin Level Trough 14.0 mcg/mL (10.0-20.0) Vancomycin Last Dose Date 06/27/19 Vancomycin Last Dose Time 2330 Test 06/29/19 00:47 06/29/19 06:20 Glucose (Fingerstick) 107 mg/dL (70-99) 112 mg/dL (70-99) Micro Microbiology 06/25/19 - Final, Resulted 06/25/19 - Final, Resulted 06/25/19 - Final, Resulted 06/25/19 - Preliminary, Resulted 06/25/19 - Preliminary, Resulted 06/25/19 - Preliminary, Resulted 06/25/19 Gram Stain Evaluation - Final, Resulted 06/25/19 Sputum Culture - Preliminary, Resulted 06/25/19 Sputum Result 1 - Final, Resulted 06/24/19 Urine Culture - Final, Complete 06/24/19 Urine Culture Result 1 (MALINI) - Final, Complete 06/24/19 Blood Culture - Preliminary, Resulted NO GROWTH AFTER 3 DAYS Objective Assessment sepsis - resolved Leukocytosis - better UTI - POA R Index finger infection - XRAY neg S/p PEA Multiple abx allergies - no rash Acute resp failure - intubated ? Pneumonia - POA H/o PEG tube infection H/o Afib - SVT controlled MRSA - + Anoxic encephalopathy Plan Plan of Care cont Tigecycline 06/26 Check sputum cult F/u labs and cults Critically ill/ anoxic brain injury d/w dr Jerome consider palliative care D/w nursing KRYSTEN RIVAS MD Jun 29, 2019 07:31
--- NOTE | 2019-06-29 08:20 | RAD ---
EXAM: CHEST ONE VIEW. HISTORY: Respiratory failure. COMPARISON: 06/28/2019. FINDINGS: A frontal view of the chest is obtained. A right internal jugular central venous catheter has its tip in the superior cavoatrial junction. The inspiration is small. Small bilateral pleural effusions are likely present. The right hemidiaphragm is mildly elevated. Interstitial opacities in the bases may indicate atelectasis or mild pulmonary edema. There is no pneumothorax. The heart is not enlarged. IMPRESSION: 1. Small inspiration. Basilar atelectasis versus mild pulmonary edema. Electronically signed by: Bradly Mcdonough MD (06/29/2019 8:17 AM) [facility]
[2019-06-29 08:50] LABS: BASE EXCESS ABG 3 mmol/L (-3-3); HCO3 ABG 27 mmol/L (21-28); PCO2 ABG 37 mmHg (35-46); PO2 ABG 134 mmHg (65-108); SAT O2 ABG 98 % (92-99)
[2019-06-29] MEDS: TIGECYCLINE 50 MG in IV DEXTROSE 5% 50 ML IV SCH ×2 (08:53→20:58)
[2019-06-29 08:54] LABS: FIO2 ABG 35
[2019-06-29] MEDS: BACITRACIN/POLYMYXIN B OPHTH OINTMENT 3.5GM TUBE. OD SCH ×2 (08:54→20:39)
[2019-06-29] MEDS: ASPIRIN CHEWABLE 81 MG TABLET. PEG SCH (08:54)
[2019-06-29] MEDS: VALPROIC ACID (AS SODIUM SALT) 250 MG/5 ML SOLUTION. PEG SCH ×2 (08:54→20:39)
[2019-06-29] MEDS: APIXABAN 5 MG TABLET. PO SCH ×2 (08:54→20:39)
[2019-06-29] MEDS: AMIODARONE HCL 200 MG TABLET. PEG SCH (08:54)
[2019-06-29] MEDS: MULTIVITAMINS,THERAPEUTIC 5 ML ORAL LIQUID. PEG SCH (08:54)
[2019-06-29] MEDS: FAMOTIDINE 20 MG TABLET. PEG SCH ×2 (08:54→20:39)
--- NOTE | 2019-06-29 09:22 | PN ---
DATE: 06/29/2019 SUBJECTIVE: The patient is continued to be intubated and mechanically ventilated. He is off sedation for more than 48 hours, continued to be unresponsive, continued to be on low dose Levophed about 2 mcg. He was seen yesterday by the neurologist and apparently a CT scan was done, which was unremarkable. He is scheduled for an EEG this morning. His sister is unable to make a decision regarding the goals of care and wanted physician to make the decision. PHYSICAL EXAMINATION: GENERAL: When I examined him this morning, he looked well and was clearly in no apparent respiratory distress, pale, cachectic, but no jaundice, cyanosis or thyromegaly. No jugular venous distention. Mild bilateral lower limb edema. VITAL SIGNS: His heart rate was 76, blood pressure was 95/62, temperature was 98.6, respiratory rate was 18, and oxygen saturation was 100% on FiO2 of 35%. HEAD, EYES, EARS, NOSE AND THROAT: Showed normocephalic, atraumatic. He has orotracheal and orogastric tube in place. NECK: Supple. HEART: Showed normal first and second heart sounds. No gallop or murmur. CHEST: Clear to auscultation. No crepitation or rhonchi. ABDOMEN: Distended, soft and nontender. NEUROLOGIC: He is unresponsive. He does not open his eyes spontaneously nor does he respond to verbal or painful stimuli. His intake was 4000, output was 870. LABORATORY DATA: As of yesterday, his white cell count, hemoglobin, hematocrit and platelets are all within acceptable range. His chemistry also was normal. Blood sugar has been well within normal range. ASSESSMENT: 1. Sepsis, severe, multifactorial including pneumonia, urinary tract infection, possible right index finger infection. 2. He is status post pulseless electrical activity cardiac arrest with subsequent acute respiratory failure requiring intubation and mechanical ventilation. 3. He is currently on aztreonam, Flagyl, micafungin and doxycycline. 4. Other medical problems include: A. Paroxysmal supraventricular tachycardia. His heart rate is much improved now that he is on amiodarone. B. Moderate aortic stenosis. C. Mental retardation with autism. 5. The patient continued to be unresponsive despite discontinuation of his sedation for more than 48 hours. 6. He has had a CT scan, which was unremarkable except for atrophy and microvascular disease. He is scheduled for an EEG and obviously we will decide with the palliative care team on next step for long-term management. KANU GARCIA MD DR: JUDIE/nicolasa JOB#: [id number] / [id number]
--- NOTE | 2019-06-29 13:17 | PDOC ---
PROGRESS NOTES Assessment Assessment Metabolic encephalopathy. Hypoxia encephalopathy. Respiratory failure. ARDS. fever. Leukocytosis. Pulmonary edema likely. Renal failure. CHF. DM. Hx of cardiac arrest. Recent sepsis. Autism. RECOMMENDATIONS/PLAN: Continue life support in ICU at the present time. Treat medical diseases. EEG. HCT on 06/28/19: negative except brain atrophy. HISTORY OF PRESENT ILLNESS This is a 74-year-old male patient who is a [facility] with above medical diseases and Hx of PSVT was admitted on 06/24/19 due to symptoms of vomiting and fever. While was in ED, he had bradycardia that went to PEA. 5min to ROSC and he received atropine initially then 1 dose of epinephrine. He was intubated. Neurology was requested for consultation on 06/28/19. PAST MEDICAL HISTORY Cardiovascular: HTN, Syncope, Aortic stenosis (moderate), Other (PSVT; chronic RBBB) CENTRAL NERVOUS SYSTEM: Other (Mental retardation) GI: GERD, Other (dysphagia) Hepatobiliary: No pertinent hx Psych: Other (autism) Musculoskeletal: Osteoarthritis Rheumatologic: No pertinent hx Infectious disease: Other (MRSA) Renal/: UTI, Benign prostatic enlarg. Endocrine: No pertinent hx, Other (hypoglycemia) PAST SURGICAL HISTORY TURP, ligia fundoplication, Gtube placement. FAMILY HISTORY Unknown ALLERGIES Coded Allergies: Cephalosporins (Verified Allergy, Intermediate, 04/27/19) Penicillins (Verified Allergy, Intermediate, 04/27/19) Carbamazepine (Verified Allergy, Intermediate, 04/27/19) Meropenem (Verified Allergy, Intermediate, 04/27/19) BETA LACTAMS Penicillamine (Verified Allergy, Intermediate, 04/27/19) I S O L A T I O N *CONTACT* (Verified Allergy, Unknown, 04/27/19) mrsa + MEDICATIONS: Refer to [facility] SOCIAL HISTORY: [facility]. Denies current smoking, drinking, and illicit drug use. REVIEW OF SYSTEMS: Constitutional: No malnutrition, cachexia. Head: No recent traumatic brain or head injury. Skin: No edema, or rash. Ear: No infection. Eyes: No vision loss or color blindness. Nose: No bleeding or purulent discharges. Hearing: hearing decrease. Neck: No injury. Cardiac: CHF. Pulmonary: SOB. GI: No GI ulcer, GI bleeding. Urinary/genital: Renal failure. Endocrinologic: Diabetes Mellitus. Skeletomuscular: No muscular atrophy, deformity. Neurological: see HP. Psychiatric: Autism. Otherwise, not [id number] review of systems. PHYSICAL EXAMINATION: General appearance is in subacute distress. HEENT: Normocephalic and nontraumatic. Eyes, nose, ears, and throat are unremarkable. Neck is supple. No lymphadenopathy. No crepitus. Cardiovascular: S1, S2. Pulmonary: On vent. Abdomen: Bowel sounds are positive. Extremities: No rash, lesions. NEUROLOGICAL EXAMINATION: On vent. Unresponsive. Not oriented to time, place and person. PERRL. Corneal reflex elicited. EOMI not elicited. CN: no focal findings. Muscle tone: Decreased. Muscle strength: Minimal movements noted in feet to stimuli. DTR: 1 Plantar reflex: Neutral response bilaterally Gait: Unable to walk in this mentation. Sensory exam: Minimal response to stimuli. Not able to access cerebellar signs. F-T-N test not performed. Objective Objective Vital Signs Date Time Temp Pulse Resp B/P (MAP) Pulse Ox O2 Delivery O2 Flow Rate FiO2 06/29/19 13:00 66 16 93/65 (74) 100 Ventilator 06/29/19 12:00 35.0 06/29/19 04:00 98.6 98.6 Intake and Output 06/29/19 07:00 Intake Total 1587.0 ml Output Total 2560 ml Balance -973.0 ml Intake IV Total 316.0 ml Tube Feeding 1021 ml Other 250 ml Output Urine Total 2540 ml Gastric Drainage Total 20 ml Vitals Signs Vitals VS - Last 72 Hours, by Label Date Time Temp Pulse Resp B/P (MAP) Pulse Ox O2 Delivery O2 Flow Rate FiO2 06/29/19 13:00 66 16 93/65 (74) 100 Ventilator 06/29/19 12:56 100 Ventilator 06/29/19 12:00 70 16 101/73 (82) 100 Ventilator 06/29/19 12:00 Mechanical Ventilator 35.0 06/29/19 11:00 66 18 79/57 (64) 100 Ventilator 06/29/19 10:45 100 Ventilator 06/29/19 10:00 72 19 12/69 (50) 100 Ventilator 06/29/19 09:00 70 16 118/71 (87) 100 Ventilator 06/29/19 08:54 73 06/29/19 08:42 100 Ventilator 06/29/19 08:30 70 118/71 (87) 11/5/19 08:15 72 115/70 (85) 06/29/19 08:00 Mechanical Ventilator 35.0 06/29/19 08:00 70 17 87/62 (70) 100 Ventilator 06/29/19 07:00 82 18 104/71 (82) 100 Ventilator 06/29/19 06:00 76 18 95/62 (73) 100 Ventilator 06/29/19 05:00 76 18 72/58 (63) 100 Ventilator 06/29/19 04:53 100 Ventilator 06/29/19 04:00 98.6 76 18 104/68 (80) 100 Ventilator 98.6 06/29/19 03:20 100 Ventilator 06/29/19 03:00 76 18 85/55 (65) 100 Ventilator 06/29/19 03:00 Mechanical Ventilator 35.0 06/29/19 02:00 78 18 83/57 (66) 100 Ventilator 06/29/19 01:00 79 16 104/64 (77) 100 Ventilator 06/29/19 00:49 100 Ventilator 06/29/19 00:01 97.9 79 23 86/64 (71) 100 Ventilator 97.9 06/28/19 23:59 Mechanical Ventilator 35.0 06/28/19 23:01 100 Ventilator 06/28/19 23:00 79 19 97/64 (75) 100 Ventilator 06/28/19 22:00 79 19 118/71 (87) 100 Ventilator 06/28/19 21:00 79 16 123/82 (96) 100 Ventilator 06/28/19 20:14 78 125/79 06/28/19 20:05 100 Ventilator 06/28/19 20:00 Mechanical Ventilator 35.0 06/28/19 20:00 98.5 79 16 118/79 (92) 100 Ventilator 98.5 06/28/19 19:00 79 16 129/78 (95) 100 Ventilator 06/28/19 18:00 78 16 125/79 (94) 100 Ventilator 06/28/19 17:00 74 22 97/70 (79) 100 Ventilator 06/28/19 16:52 100 Ventilator 06/28/19 16:15 76 93/64 (74) 06/28/19 16:00 76 17 97/70 (79) 100 Ventilator 06/28/19 16:00 97.9 97.9 06/28/19 16:00 Mechanical Ventilator 40.0 06/28/19 15:03 100 Ventilator 06/28/19 15:00 72 20 133/81 (98) 100 Ventilator 06/28/19 14:00 72 16 115/70 (85) 100 Ventilator 06/28/19 13:00 74 8 29/84 (66) 100 Ventilator 06/28/19 12:18 100 Ventilator 06/28/19 12:00 98.5 72 19 114/67 (83) 100 Ventilator 98.5 06/28/19 12:00 Mechanical Ventilator 40.0 06/28/19 11:35 100 Ventilator 06/28/19 11:00 68 18 121/67 (85) 100 Ventilator 06/28/19 10:00 66 16 121/64 (83) 100 Ventilator 06/28/19 09:00 66 16 121/64 (83) 100 Ventilator 06/28/19 08:56 100 Ventilator 06/28/19 08:35 68 06/28/19 08:00 98.3 98.3 06/28/19 08:00 Mechanical Ventilator 40.0 06/28/19 08:00 64 16 120/69 (86) 100 Ventilator 06/28/19 07:15 100 Ventilator 06/28/19 07:00 62 16 120/69 (86) 100 Ventilator Laboratory Laboratory Laboratory Tests Test 06/28/19 18:06 06/29/19 00:47 06/29/19 06:20 06/29/19 08:00 Glucose (Fingerstick) 130 mg/dL (70-99) 107 mg/dL (70-99) 112 mg/dL (70-99) O2 Saturation 98 % (92-99) Arterial Blood pH 7.48 (7.35-7.45) Arterial Blood pCO2 at Patient Temp 37 mmHg (35-46) Arterial Blood pO2 at Patient Temp 134 mmHg (65-108) Arterial Blood HCO3 27 mmol/L (21-28) Arterial Blood Base Excess 3 mmol/L (-3-3) FiO2 35 Microbiology 06/25/19 - Final, Resulted 06/25/19 - Final, Resulted 06/25/19 - Final, Resulted 06/25/19 - Preliminary, Resulted 06/25/19 - Preliminary, Resulted 06/25/19 - Preliminary, Resulted 06/25/19 Gram Stain Evaluation - Final, Resulted 06/25/19 Sputum Culture - Final, Resulted 06/25/19 Sputum Result 1 - Final, Resulted 06/24/19 Urine Culture - Final, Complete 06/24/19 Urine Culture Result 1 (MALINI) - Final, Complete 06/24/19 Blood Culture - Preliminary, Resulted NO GROWTH AFTER 4 DAYS Comment Review of Relevant I have reviewed the following items aden (where applicable) has been applied. VANESSA EASTMAN MD Jun 29, 2019 13:16
--- NOTE | 2019-06-29 13:36 | PDOC ---
CRYSTAL HAMM GRINDER SET UP OPERATOR INTERNAL 06/29/19 1336: CARDIO Progress Notes Date and Time Date of Service 06/29/19 Time of Evaluation 1310 Subjective Subjective: Other (intubated. off sedation- not responding ) Vitals Vitals Vital Signs Date Time Temp Pulse Resp B/P (MAP) Pulse Ox O2 Delivery O2 Flow Rate FiO2 06/29/19 13:00 66 16 93/65 (74) 100 Ventilator 06/29/19 12:00 35.0 06/29/19 04:00 98.6 98.6 Weight Weight [ ] Input and Output Intake and Output Intake and Output 06/29/19 07:00 Intake Total 1587.0 ml Output Total 2560 ml Balance -973.0 ml Intake IV Total 316.0 ml Tube Feeding 1021 ml Other 250 ml Output Urine Total 2540 ml Gastric Drainage Total 20 ml Laboratory Labs Laboratory Tests Test 06/28/19 18:06 06/29/19 00:47 06/29/19 06:20 06/29/19 08:00 Glucose (Fingerstick) 130 mg/dL (70-99) 107 mg/dL (70-99) 112 mg/dL (70-99) O2 Saturation 98 % (92-99) Arterial Blood pH 7.48 (7.35-7.45) Arterial Blood pCO2 at Patient Temp 37 mmHg (35-46) Arterial Blood pO2 at Patient Temp 134 mmHg (65-108) Arterial Blood HCO3 27 mmol/L (21-28) Arterial Blood Base Excess 3 mmol/L (-3-3) FiO2 35 Microbiology Micro Microbiology 06/25/19 - Final, Resulted 06/25/19 - Final, Resulted 06/25/19 - Final, Resulted 06/25/19 - Preliminary, Resulted 06/25/19 - Preliminary, Resulted 06/25/19 - Preliminary, Resulted 06/25/19 Gram Stain Evaluation - Final, Resulted 06/25/19 Sputum Culture - Final, Resulted 06/25/19 Sputum Result 1 - Final, Resulted 06/24/19 Urine Culture - Final, Complete 06/24/19 Urine Culture Result 1 (MALINI) - Final, Complete 06/24/19 Blood Culture - Preliminary, Resulted NO GROWTH AFTER 4 DAYS Physical Exam HEENT: Neck Supple W Full Motion Chest: Symmetric LUNGS: Other (diminished, intubated/mechanical ventilation) Heart: RRR (SR no significant ectopies) Abdomen: Other (soft) Extremities: Other (1+ bilateral Le pitting edema) Neurology: other (unresponsive. ) Assessment Assessment 1. Sepsis/shock; remains on low-dose pressor support 2. PEA arrest: 5 min to ROSC. 3. Acute respiratory failure: intubated/vent. per pulmonary 4. UTI/right index finger wound infection/Pneumonia/possible Gtube infection: ID following 5. 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 PAFIB: maintaining SR with amiodarone 7. Anoxic/metabolic encephalopathy: remains unresponsive since off sedation for 48hr now 8. Cardiomyopathy: presumed NICM. EF 40% 9. Hx of autism and mental retardation Recommendations Continue amiodarone therapy. On apixaban for stroke prevention Antibiotics as per ID Prognosis poor, palliative care following Supportive care AIMEE MALDONADO MD 06/29/191942: CARDIO Progress Notes Assessment Assessment Patient seen and examined. Agree with HIGH WIRE ARTIST's assessment and plan Continues to need pressor support PAF maintaining SR Continue vent management per CRYSTAL Salvador APRN Jun 29, 2019 13:36 AIMEE MALDONADO MD Jun 29, 2019 19:43
--- NOTE | 2019-06-29 13:45 | PDOC2 ---
PALLIATIVE CARE Palliative Care Note Palliative Care Patient remains on Vent. EEG in progress this am when patient seen (0930) Off sedation. Pressor x 1 low dose. Divina-- sister called in. Attempted to return call. No answer. EEG results pending. Will need to inform family of results and plan of care. 1629 spoke with Divina /sister. Will meet tomorrow at 1200 to discuss. States her sister Corinna wants 2 doctors to make any decisions. Corinna will not be here tomorrow. Divina would want to know if patient will get back to his previous level of function prior to decisions being made. DNR discussed. Will continue with current treatment plan. OTONIEL MICHEL Jun 29, 2019 13:45
--- NOTE | 2019-06-29 15:25 | PDOC ---
PULMONARY PROGRESS NOTES Subjective PT ON AC MODE NO SEDATION Vitals Vital Signs Date Time Temp Pulse Resp B/P (MAP) Pulse Ox O2 Delivery O2 Flow Rate FiO2 06/29/19 13:00 66 16 93/65 (74) 100 Ventilator 06/29/19 12:00 35.0 06/29/19 04:00 98.6 98.6 Comments ros unobtainable HEENT: Other Lungs: Other (equal breath sounds. no wheezing, rales or rhonchi) Cardiovascular: S1, S2 Abdomen: Soft, Non-tender, Other (PEG in place) Extremities: No Edema, Other Skin: Warm Labs Laboratory Tests Test 06/27/19 17:53 06/28/19 05:28 06/28/19 05:30 06/28/19 07:30 Glucose (Fingerstick) 117 mg/dL (70-99) 109 mg/dL (70-99) White Blood Count 8.8 x10^3/uL (4.0-11.0) Red Blood Count 3.90 x10^6/uL (4.30-5.70) Hemoglobin 11.4 g/dL (13.0-17.5) Hematocrit 34.5 % (39.0-53.0) Mean Corpuscular Volume 88 fL (79-100) Mean Corpuscular Hemoglobin 29 pg (25-35) Mean Corpuscular Hemoglobin Concent 33 g/dL (31-37) Red Cell Distribution Width 15.2 % (11.5-14.5) Platelet Count 382 x10^3/uL (140-400) Neutrophils (%) (Auto) 64 % (31-73) Lymphocytes (%) (Auto) 23 % (24-48) Monocytes (%) (Auto) 9 % (0-9) Eosinophils (%) (Auto) 4 % (0-3) Basophils (%) (Auto) 1 % (0-3) Neutrophils # (Auto) 5.6 x10^3/uL (1.8-7.7) Lymphocytes # (Auto) 2.0 x10^3/uL (1.0-4.8) Monocytes # (Auto) 0.8 x10^3/uL (0.0-1.1) Eosinophils # (Auto) 0.3 x10^3/uL (0.0-0.7) Basophils # (Auto) 0.1 x10^3/uL (0.0-0.2) Sodium Level 142 mmol/L (136-145) Potassium Level 3.9 mmol/L (3.5-5.1) Chloride Level 112 mmol/L (98-107) Carbon Dioxide Level 25 mmol/L (21-32) Anion Gap 5 (6-14) Blood Urea Nitrogen 19 mg/dL (8-26) Creatinine 0.8 mg/dL (0.7-1.3) Estimated GFR (Cockcroft-Gault) 95.0 BUN/Creatinine Ratio 24 (6-20) Glucose Level 121 mg/dL (70-99) Calcium Level 7.7 mg/dL (8.5-10.1) Total Bilirubin 0.2 mg/dL (0.2-1.0) Aspartate Amino Transf (AST/SGOT) 28 U/L (15-37) Alanine Aminotransferase (ALT/SGPT) 26 U/L (16-63) Alkaline Phosphatase 59 U/L (46-116) Total Protein 5.5 g/dL (6.4-8.2) Albumin 1.5 g/dL (3.4-5.0) Albumin/Globulin Ratio 0.4 (1.0-1.7) O2 Saturation 99 % (92-99) Arterial Blood pH 7.42 (7.35-7.45) Arterial Blood pCO2 at Patient Temp 35 mmHg (35-46) Arterial Blood pO2 at Patient Temp 134 mmHg (65-108) Arterial Blood HCO3 22 mmol/L (21-28) Arterial Blood Base Excess -2 mmol/L (-3-3) FiO2 35 Test 06/28/19 11:08 06/28/19 11:11 06/28/19 18:06 06/29/19 00:47 Glucose (Fingerstick) 120 mg/dL (70-99) 130 mg/dL (70-99) 107 mg/dL (70-99) Vancomycin Level Trough 14.0 mcg/mL (10.0-20.0) Vancomycin Last Dose Date 06/27/19 Vancomycin Last Dose Time 233 Test 06/29/19 06:20 06/29/19 08:00 Glucose (Fingerstick) 112 mg/dL (70-99) O2 Saturation 98 % (92-99) Arterial Blood pH 7.48 (7.35-7.45) Arterial Blood pCO2 at Patient Temp 37 mmHg (35-46) Arterial Blood pO2 at Patient Temp 134 mmHg (65-108) Arterial Blood HCO3 27 mmol/L (21-28) Arterial Blood Base Excess 3 mmol/L (-3-3) FiO2 35 Laboratory Tests Test 06/28/19 18:06 06/29/19 00:47 06/29/19 06:20 06/29/19 08:00 Glucose (Fingerstick) 130 mg/dL (70-99) 107 mg/dL (70-99) 112 mg/dL (70-99) O2 Saturation 98 % (92-99) Arterial Blood pH 7.48 (7.35-7.45) Arterial Blood pCO2 at Patient Temp 37 mmHg (35-46) Arterial Blood pO2 at Patient Temp 134 mmHg (65-108) Arterial Blood HCO3 27 mmol/L (21-28) Arterial Blood Base Excess 3 mmol/L (-3-3) FiO2 35 Medications Active Scripts Medications Dose Route/Sig Max Daily Dose Days Date Category Valproic Acid (Valproate Sodium) 250 Mg/5 Ml Solution 250 Mg PO DAILY 06/24/19 Reported Valproic Acid (Valproate Sodium) 250 Mg/5 Ml Solution 500 Mg PO HS 06/24/19 Reported Terazosin Hcl 2 Mg Capsule 1 Mg PO HS 06/24/19 Reported Ondansetron Odt (Ondansetron) 4 Mg Tab.rapdis 4 Mg PO Q6HRS PRN 06/24/19 Reported Lorazepam 2 Mg/1 Ml Oral.conc 0.5 Mg PO PRN Q8HRS PRN 06/24/19 Reported Famotidine 20 Mg Tablet 20 Mg PO BID 06/24/19 Reported Doxycycline Hyclate 100 Mg Tablet 1 Tab PO BID 10 06/24/19 Reported Cardizem Tablet (Diltiazem Hcl) 60 Mg Tablet 60 Mg PO QID 06/24/19 Reported Bactrim Ds Tablet (Sulfamethoxazole/Trimethoprim) 1 Each Tablet 1 Tab PO BID 10 06/24/19 Reported Bacitracin 3.5 Gm Oint...g. 1 Hesham OD BID 06/24/19 Reported Artificial Tears Eye Drops (Dextran 70/Hypromellose) 15 Ml Drops 1 Drop EACHEYE QID PRN 06/24/19 Reported Eliquis (Apixaban) 5 Mg Tablet 5 Mg PO BID 06/24/19 Reported Amiodarone Hcl 200 Mg Tablet 200 Mg PO DAILY 06/24/19 Reported Acetaminophen 325 Mg Tablet 650 Mg PO PRN Q6HRS PRN 06/24/19 Reported Aspirin 81 Mg Tab.chew 1 Tab PO DAILY 04/23/19 Reported Mirtazapine 15 Mg Tablet 1 Tab PO QHS 04/22/19 Reported Multi-Day Vitamins (Multivitamin) 1 Each Tablet 1 Tab PO DAILY 04/17/15 Reported Impression . 1. Acute hypoxemic respiratory failure. 2. Septic shock. 3. Leukocytosis. 4. Urinary tract infection. 5. Status post pulseless electrical activity. ACLS protocol was followed. The patient had return of spontaneous circulation within 5 minutes. 6. Multiple antibiotic allergies. 7. Possible pneumonia. 8. Status post percutaneous endoscopic gastrostomy. 9. History of atrial fibrillation. 10. History of methicillin-resistant Staph aureus infection. 11. SUSPECT ANOXIC BRAIN INJURY Plan . OFF SEDATION ASSIST VENTILATOR HE DOES WITHDRAW TO PAIN D/W PAT FROM PALLIATIVE CARE IF PT DOES NOT IMPROVE IN NEXT 24-48 HOURS OFF SEDATION I WOULD FAVOR D/C SUPPORT AND ALLOW NATURAL WILL CONTINUE SUPPORT FOR NOW RAKESH DICKINSON MD Jun 29, 2019 15:25
[2019-06-29] MEDS: POLYVINYL ALCOHOL 1.4% OPHTH SOLUTION 15ML BOTTLE. OU PRN (20:39)
[2019-06-29] MEDS: MIRTAZAPINE 15 MG TABLET PO SCH (20:39)
[2019-06-30] VITALS (24 sets, daily range): BP systolic 76–136; BP diastolic 59–86
[2019-06-30] MEDS: INSULIN LISPRO 300 UNITS/3 ML VIAL. SQ SCH ×4 (06:00→18:00)
[2019-06-30 06:04] LABS: HEMATOCRIT 33.3 % (39.0-53.0); HEMOGLOBIN 11.2 g/dL (13.0-17.5); RED BLOOD COUNT 3.82 x10^6/uL (4.30-5.70); RED CELL DISTRIBUTION WIDTH 15.4 % (11.5-14.5); WHITE BLOOD COUNT 9.7 x10^3/uL (4.0-11.0)
[2019-06-30 06:29] LABS: ALBUMIN 1.6 g/dL (3.4-5.0); ALBUMIN/GLOBULIN RATIO 0.4 (1.0-1.7); CALCIUM 8.2 mg/dL (8.5-10.1); CREATININE 0.7 mg/dL (0.7-1.3); GFR 110.9; TOTAL BILIRUBIN 0.2 mg/dL (0.2-1.0); TOTAL PROTEIN 5.7 g/dL (6.4-8.2)
--- NOTE | 2019-06-30 07:34 | PDOC ---
Infectious Disease Note Subjective Subjective Intubated, not sedated and no response ROS ROS unable to do Vital Sign Vital Signs Vital Signs Date Time Temp Pulse Resp B/P (MAP) Pulse Ox O2 Delivery O2 Flow Rate FiO2 06/30/19 06:00 85 19 103/59 (74) 100 Ventilator 06/30/19 04:00 98.8 98.8 06/29/19 20:00 35.0 Physical Exam PHYSICAL EXAM CONSTITUTIONAL: He is intubated, HEENT: Pupils are small, reactive. Normal conjunctivae. NECK: Supple, no JVD. LUNGS: Decreased at the bases. HEART: S1, S2. ABDOMEN: Soft. PEG tube without signs of any complications. GENITOURINARY: Had a Ortega in place. EXTREMITIES: Without clubbing, cyanosis or gross edema. His right index finger, about the nail has some erythema, has some peeling, drying of the skin. There is no pus. Do not appear to be tender. He has good radial pulse, on ulnar decreased, but palpable. SKIN: Warm to touch without signs of rash. IVs: he has a right IJ and a right hand peripheral IV, both appear to be clean. 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, not sedated Labs Lab Laboratory Tests Test 06/29/19 08:00 06/29/19 18:35 06/30/19 05:44 06/30/19 05:45 O2 Saturation 98 % (92-99) Arterial Blood pH 7.48 (7.35-7.45) Arterial Blood pCO2 at Patient Temp 37 mmHg (35-46) Arterial Blood pO2 at Patient Temp 134 mmHg (65-108) Arterial Blood HCO3 27 mmol/L (21-28) Arterial Blood Base Excess 3 mmol/L (-3-3) FiO2 35 Glucose (Fingerstick) 95 mg/dL (70-99) 109 mg/dL (70-99) White Blood Count 9.7 x10^3/uL (4.0-11.0) Red Blood Count 3.82 x10^6/uL (4.30-5.70) Hemoglobin 11.2 g/dL (13.0-17.5) Hematocrit 33.3 % (39.0-53.0) Mean Corpuscular Volume 87 fL (79-100) Mean Corpuscular Hemoglobin 30 pg (25-35) Mean Corpuscular Hemoglobin Concent 34 g/dL (31-37) Red Cell Distribution Width 15.4 % (11.5-14.5) Platelet Count 338 x10^3/uL (140-400) Sodium Level 144 mmol/L (136-145) Potassium Level 4.0 mmol/L (3.5-5.1) Chloride Level 109 mmol/L (98-107) Carbon Dioxide Level 30 mmol/L (21-32) Anion Gap 5 (6-14) Blood Urea Nitrogen 21 mg/dL (8-26) Creatinine 0.7 mg/dL (0.7-1.3) Estimated GFR (Cockcroft-Gault) 110.9 BUN/Creatinine Ratio 30 (6-20) Glucose Level 111 mg/dL (70-99) Calcium Level 8.2 mg/dL (8.5-10.1) Total Bilirubin 0.2 mg/dL (0.2-1.0) Aspartate Amino Transf (AST/SGOT) 36 U/L (15-37) Alanine Aminotransferase (ALT/SGPT) 27 U/L (16-63) Alkaline Phosphatase 61 U/L (46-116) Total Protein 5.7 g/dL (6.4-8.2) Albumin 1.6 g/dL (3.4-5.0) Albumin/Globulin Ratio 0.4 (1.0-1.7) Micro Microbiology 06/25/19 - Final, Resulted 06/25/19 - Final, Resulted 06/25/19 - Final, Resulted 06/25/19 - Preliminary, Resulted 06/25/19 - Preliminary, Resulted 06/25/19 - Preliminary, Resulted 06/25/19 Gram Stain Evaluation - Final, Resulted 06/25/19 Sputum Culture - Preliminary, Resulted 06/25/19 Sputum Result 1 - Final, Resulted 06/24/19 Urine Culture - Final, Complete 06/24/19 Urine Culture Result 1 (MALINI) - Final, Complete 06/24/19 Blood Culture - Preliminary, Resulted NO GROWTH AFTER 3 DAYS Objective Assessment sepsis - resolved Leukocytosis - better UTI - POA R Index finger infection - XRAY neg S/p PEA Multiple abx allergies - no rash Acute resp failure - intubated ? Pneumonia - POA H/o PEG tube infection H/o Afib - SVT controlled MRSA - + Anoxic encephalopathy Plan Plan of Care d/c Tigecycline 06/26 Check sputum cult F/u labs and cults Critically ill/ anoxic brain injury d/w dr Jerome consider palliative care D/w nursing KRYSTEN RIVAS MD Jun 30, 2019 07:34
[2019-06-30] MEDS: BACITRACIN/POLYMYXIN B OPHTH OINTMENT 3.5GM TUBE. OD SCH ×2 (08:36→21:30)
[2019-06-30] MEDS: AMIODARONE HCL 200 MG TABLET. PEG SCH (08:36)
[2019-06-30] MEDS: VALPROIC ACID (AS SODIUM SALT) 250 MG/5 ML SOLUTION. PEG SCH ×2 (08:36→21:29)
[2019-06-30] MEDS: APIXABAN 5 MG TABLET. PO SCH ×2 (08:36→21:30)
[2019-06-30] MEDS: ASPIRIN CHEWABLE 81 MG TABLET. PEG SCH (08:36)
[2019-06-30] MEDS: FAMOTIDINE 20 MG TABLET. PEG SCH ×2 (08:36→21:29)
[2019-06-30] MEDS: fentaNYL PF VIAL 100 MCG/2 ML VIAL IV PRN ×2 (08:37→13:11)
[2019-06-30 08:50] LABS: BASE EXCESS ABG 2 mmol/L (-3-3); HCO3 ABG 25 mmol/L (21-28); PCO2 ABG 33 mmHg (35-46); PO2 ABG 140 mmHg (65-108); SAT O2 ABG 99 % (92-99)
--- NOTE | 2019-06-30 08:56 | PDOC ---
PULMONARY PROGRESS NOTES Subjective PT ON AC MODE NO SEDATION, MORE AWAKE TODAY Vitals Vital Signs Date Time Temp Pulse Resp B/P (MAP) Pulse Ox O2 Delivery O2 Flow Rate FiO2 06/30/19 08:40 100 Ventilator 06/30/19 08:36 83 80/65 06/30/19 08:00 98.1 20 98.1 06/29/19 20:00 35.0 Comments ros unobtainable HEENT: Other Lungs: Clear Cardiovascular: S1, S2 Abdomen: Soft, Non-tender, Other (PEG in place) Extremities: No Edema, Other Skin: Warm Labs Laboratory Tests Test 06/28/19 11:08 06/28/19 11:11 06/28/19 18:06 06/29/19 00:47 Glucose (Fingerstick) 120 mg/dL (70-99) 130 mg/dL (70-99) 107 mg/dL (70-99) Vancomycin Level Trough 14.0 mcg/mL (10.0-20.0) Vancomycin Last Dose Date 06/27/19 Vancomycin Last Dose Time 233 Test 06/29/19 06:20 06/29/19 08:00 06/29/19 18:35 06/30/19 05:44 Glucose (Fingerstick) 112 mg/dL (70-99) 95 mg/dL (70-99) 109 mg/dL (70-99) O2 Saturation 98 % (92-99) Arterial Blood pH 7.48 (7.35-7.45) Arterial Blood pCO2 at Patient Temp 37 mmHg (35-46) Arterial Blood pO2 at Patient Temp 134 mmHg (65-108) Arterial Blood HCO3 27 mmol/L (21-28) Arterial Blood Base Excess 3 mmol/L (-3-3) FiO2 35 Test 06/30/19 05:45 White Blood Count 9.7 x10^3/uL (4.0-11.0) Red Blood Count 3.82 x10^6/uL (4.30-5.70) Hemoglobin 11.2 g/dL (13.0-17.5) Hematocrit 33.3 % (39.0-53.0) Mean Corpuscular Volume 87 fL (79-100) Mean Corpuscular Hemoglobin 30 pg (25-35) Mean Corpuscular Hemoglobin Concent 34 g/dL (31-37) Red Cell Distribution Width 15.4 % (11.5-14.5) Platelet Count 338 x10^3/uL (140-400) Sodium Level 144 mmol/L (136-145) Potassium Level 4.0 mmol/L (3.5-5.1) Chloride Level 109 mmol/L (98-107) Carbon Dioxide Level 30 mmol/L (21-32) Anion Gap 5 (6-14) Blood Urea Nitrogen 21 mg/dL (8-26) Creatinine 0.7 mg/dL (0.7-1.3) Estimated GFR (Cockcroft-Gault) 110.9 BUN/Creatinine Ratio 30 (6-20) Glucose Level 111 mg/dL (70-99) Calcium Level 8.2 mg/dL (8.5-10.1) Total Bilirubin 0.2 mg/dL (0.2-1.0) Aspartate Amino Transf (AST/SGOT) 36 U/L (15-37) Alanine Aminotransferase (ALT/SGPT) 27 U/L (16-63) Alkaline Phosphatase 61 U/L (46-116) Total Protein 5.7 g/dL (6.4-8.2) Albumin 1.6 g/dL (3.4-5.0) Albumin/Globulin Ratio 0.4 (1.0-1.7) Laboratory Tests Test 06/29/19 18:35 06/30/19 05:44 06/30/19 05:45 Glucose (Fingerstick) 95 mg/dL (70-99) 109 mg/dL (70-99) White Blood Count 9.7 x10^3/uL (4.0-11.0) Red Blood Count 3.82 x10^6/uL (4.30-5.70) Hemoglobin 11.2 g/dL (13.0-17.5) Hematocrit 33.3 % (39.0-53.0) Mean Corpuscular Volume 87 fL (79-100) Mean Corpuscular Hemoglobin 30 pg (25-35) Mean Corpuscular Hemoglobin Concent 34 g/dL (31-37) Red Cell Distribution Width 15.4 % (11.5-14.5) Platelet Count 338 x10^3/uL (140-400) Sodium Level 144 mmol/L (136-145) Potassium Level 4.0 mmol/L (3.5-5.1) Chloride Level 109 mmol/L (98-107) Carbon Dioxide Level 30 mmol/L (21-32) Anion Gap 5 (6-14) Blood Urea Nitrogen 21 mg/dL (8-26) Creatinine 0.7 mg/dL (0.7-1.3) Estimated GFR (Cockcroft-Gault) 110.9 BUN/Creatinine Ratio 30 (6-20) Glucose Level 111 mg/dL (70-99) Calcium Level 8.2 mg/dL (8.5-10.1) Total Bilirubin 0.2 mg/dL (0.2-1.0) Aspartate Amino Transf (AST/SGOT) 36 U/L (15-37) Alanine Aminotransferase (ALT/SGPT) 27 U/L (16-63) Alkaline Phosphatase 61 U/L (46-116) Total Protein 5.7 g/dL (6.4-8.2) Albumin 1.6 g/dL (3.4-5.0) Albumin/Globulin Ratio 0.4 (1.0-1.7) Medications Active Scripts Medications Dose Route/Sig Max Daily Dose Days Date Category Valproic Acid (Valproate Sodium) 250 Mg/5 Ml Solution 250 Mg PO DAILY 06/24/19 Reported Valproic Acid (Valproate Sodium) 250 Mg/5 Ml Solution 500 Mg PO HS 06/24/19 Reported Terazosin Hcl 2 Mg Capsule 1 Mg PO HS 06/24/19 Reported Ondansetron Odt (Ondansetron) 4 Mg Tab.rapdis 4 Mg PO Q6HRS PRN 06/24/19 Reported Lorazepam 2 Mg/1 Ml Oral.conc 0.5 Mg PO PRN Q8HRS PRN 06/24/19 Reported Famotidine 20 Mg Tablet 20 Mg PO BID 06/24/19 Reported Doxycycline Hyclate 100 Mg Tablet 1 Tab PO BID 10 06/24/19 Reported Cardizem Tablet (Diltiazem Hcl) 60 Mg Tablet 60 Mg PO QID 06/24/19 Reported Bactrim Ds Tablet (Sulfamethoxazole/Trimethoprim) 1 Each Tablet 1 Tab PO BID 10 06/24/19 Reported Bacitracin 3.5 Gm Oint...g. 1 [place]ham OD BID 06/24/19 Reported Artificial Tears Eye Drops (Dextran 70/Hypromellose) 15 Ml Drops 1 Drop EACHEYE QID PRN 06/24/19 Reported Eliquis (Apixaban) 5 Mg Tablet 5 Mg PO BID 06/24/19 Reported Amiodarone Hcl 200 Mg Tablet 200 Mg PO DAILY 06/24/19 Reported Acetaminophen 325 Mg Tablet 650 Mg PO PRN Q6HRS PRN 06/24/19 Reported Aspirin 81 Mg Tab.chew 1 Tab PO DAILY 04/23/19 Reported Mirtazapine 15 Mg Tablet 1 Tab PO QHS 04/22/19 Reported Multi-Day Vitamins (Multivitamin) 1 Each Tablet 1 Tab PO DAILY 04/17/15 Reported Impression . 1. Acute hypoxemic respiratory failure. 2. Septic shock. 3. Leukocytosis. 4. Urinary tract infection. 5. Status post pulseless electrical activity. ACLS protocol was followed. The patient had return of spontaneous circulation within 5 minutes. 6. Multiple antibiotic allergies. 7. Possible pneumonia. 8. Status post percutaneous endoscopic gastrostomy. 9. History of atrial fibrillation. 10. History of methicillin-resistant Staph aureus infection. 11. SUSPECT ANOXIC BRAIN INJURY Plan . MORE AWAKE TODAY FAMILY MEETING TODAY WILL CONTINUE THE SAME PT DOES ASSIST VENTILATOR, IF EXUTBATED I THINK HE WILL DO OK FOR A SHORT PERIOD OF TIME, IF FAMILY WISHES EXTUBATION I WOULD FAVOR DNR AND DNI, PAVIOR TO DECISION D/W RT AND RN WILL CONTINUE SUPPORT FOR NOW CCT 30 MIN FORMULATING A PLAN, REVIEWING DATA, LABS, CXR RAKESH DICKINSON MD Jun 30, 2019 08:56
[2019-06-30 08:59] LABS: FIO2 ABG 35
--- NOTE | 2019-06-30 08:59 | RAD ---
EXAM: CHEST ONE VIEW. HISTORY: Respiratory failure, intubated. COMPARISON: 06/29/2019. FINDINGS: A frontal view of the chest is obtained. An endotracheal tube has its tip 3.6 cm above the akil. There is rotation to the left. The inspiration is small. Bibasilar opacities are consistent with atelectasis and mild pulmonary edema. Small bilateral pleural effusions are likely present. There is no pneumothorax. The heart is not enlarged. There are atherosclerotic calcifications of the aorta. IMPRESSION: 1. Mild pulmonary edema. Small bilateral pleural effusions. Electronically signed by: Bradly Mcdonough MD (06/30/2019 8:56 AM) [facility]
[2019-06-30] MEDS: MULTIVITAMINS,THERAPEUTIC 5 ML ORAL LIQUID. PEG SCH (09:06)
--- NOTE | 2019-06-30 10:59 | PDOC ---
CARDIO Progress Notes Date and Time Date of Service 06/30/19 Time of Evaluation 1100 Subjective Subjective: Other (intubated, more awake today) Vitals Vitals Vital Signs Date Time Temp Pulse Resp B/P (MAP) Pulse Ox O2 Delivery O2 Flow Rate FiO2 06/30/19 10:00 83 19 106/73 (84) 100 Ventilator 06/30/19 08:00 98.1 98.1 06/29/19 20:00 35.0 Weight Weight [ ] Input and Output Intake and Output Intake and Output 06/30/19 07:00 Intake Total 2446 ml Output Total 1100 ml Balance 1346 ml Intake Oral 375 ml IV Total 313 ml Tube Feeding 1508 ml Blood Product IV Normal Saline Flush 250 ml Output Urine Total 1080 ml Gastric Drainage Total 20 ml Laboratory Labs Laboratory Tests Test 06/29/19 18:35 06/30/19 05:44 06/30/19 05:45 06/30/19 08:00 Glucose (Fingerstick) 95 mg/dL (70-99) 109 mg/dL (70-99) White Blood Count 9.7 x10^3/uL (4.0-11.0) Red Blood Count 3.82 x10^6/uL (4.30-5.70) Hemoglobin 11.2 g/dL (13.0-17.5) Hematocrit 33.3 % (39.0-53.0) Mean Corpuscular Volume 87 fL (79-100) Mean Corpuscular Hemoglobin 30 pg (25-35) Mean Corpuscular Hemoglobin Concent 34 g/dL (31-37) Red Cell Distribution Width 15.4 % (11.5-14.5) Platelet Count 338 x10^3/uL (140-400) Sodium Level 144 mmol/L (136-145) Potassium Level 4.0 mmol/L (3.5-5.1) Chloride Level 109 mmol/L (98-107) Carbon Dioxide Level 30 mmol/L (21-32) Anion Gap 5 (6-14) Blood Urea Nitrogen 21 mg/dL (8-26) Creatinine 0.7 mg/dL (0.7-1.3) Estimated GFR (Cockcroft-Gault) 110.9 BUN/Creatinine Ratio 30 (6-20) Glucose Level 111 mg/dL (70-99) Calcium Level 8.2 mg/dL (8.5-10.1) Total Bilirubin 0.2 mg/dL (0.2-1.0) Aspartate Amino Transf (AST/SGOT) 36 U/L (15-37) Alanine Aminotransferase (ALT/SGPT) 27 U/L (16-63) Alkaline Phosphatase 61 U/L (46-116) Total Protein 5.7 g/dL (6.4-8.2) Albumin 1.6 g/dL (3.4-5.0) Albumin/Globulin Ratio 0.4 (1.0-1.7) O2 Saturation 99 % (92-99) Arterial Blood pH 7.49 (7.35-7.45) Arterial Blood pCO2 at Patient Temp 33 mmHg (35-46) Arterial Blood pO2 at Patient Temp 140 mmHg (65-108) Arterial Blood HCO3 25 mmol/L (21-28) Arterial Blood Base Excess 2 mmol/L (-3-3) FiO2 35 Microbiology Micro Microbiology 06/25/19 - Final, Resulted 06/25/19 - Final, Resulted 06/25/19 - Final, Resulted 06/25/19 - Preliminary, Resulted 06/25/19 - Preliminary, Resulted 06/25/19 - Preliminary, Resulted 06/25/19 Gram Stain Evaluation - Final, Resulted 06/25/19 Sputum Culture - Final, Resulted 06/25/19 Sputum Result 1 - Final, Resulted 06/24/19 Urine Culture - Final, Complete 06/24/19 Urine Culture Result 1 (MALINI) - Final, Complete 06/24/19 Blood Culture - Final, Complete NO GROWTH AFTER 5 DAYS Physical Exam HEENT: Neck Supple W Full Motion Chest: Symmetric LUNGS: Other (diminished, intubated/mechanical ventilation) Heart: RRR (SR no significant ectopies) Abdomen: Other (soft) Extremities: Other (1+ bilateral Le pitting edema) Neurology: other (open eyes) Assessment Assessment 1. Sepsis/shock; off pressor support 2. PEA arrest: 5 min to ROSC. 3. Acute respiratory failure: intubated/vent. per pulmonary 4. UTI/right index finger wound infection/Pneumonia/possible Gtube infection: ID following 5. 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 PAFIB: maintaining SR with amiodarone 7. Anoxic/metabolic encephalopathy: off pressor support, now opening eyes 8. Cardiomyopathy: presumed NICM. EF 40% 9. Hx of autism and mental retardation Recommendations Continue amiodarone therapy. Apixaban for stroke prevention Antibiotics as per ID Palliative care following Supportive care CRYSTAL HAMM APRN Jun 30, 2019 10:59
--- NOTE | 2019-06-30 13:34 | PDOC2 ---
PALLIATIVE CARE Palliative Care Note Palliative Care Patient remains on Vent. 35%. More awake today. Looking around/does not follow commands. Met with sister/Divina and her daughter. Reviewed medical condition. Divina concerned that patient does not have hearing aide so he may not be able to follow commands because he can not hear. Divina Shaws wants 2 physicians to make decisions; Divina would want to give Gissell chance to get better. Maryam Moreau (alternate named of AD was director at [facility] and has been gone or about 4 years) only contact number family can provide; [phone]. Prior level of function at [facility]; watches TV; walks around; likes to be by himself most of the time. was able to "fix his own sandwich" Divina states she does not feel like he would want to be "hooked up to machines" but would not want to take away any chances for him to get better. Family would want to know results of EEG before any decisions made. Discussed options; Continue current treatment plan with [facility]; Other options discussed--extubate and no reintubation; DNR. No decisions until EEG results per Stacie Weinstein wishes are to have 2 physicians make the decisions. Plan: Continue current treatment plan EEG results pending [facility] (discussed with Palma SOLORIO) 1520 Results of EEG; Metabolic encephalopathy. Reviewed with Divina Murcia ([phone]) unable to make any decisions; Would like to speak with physician; OTONIEL MICHEL Jun 30, 2019 13:34
--- NOTE | 2019-06-30 13:50 | NUR ---
SS following up with discharge planning. SS spoke with Palliative Care RN and received request for LTAC referral to [facility] ; fax [phone]. SS phoned and faxed referral to [facility]. SS will await acceptance decision and will proceed accordingly with discharge planning.
--- NOTE | 2019-06-30 14:10 | PDOC ---
PROGRESS NOTES Assessment Assessment Metabolic encephalopathy. Hypoxia encephalopathy. Respiratory failure. ARDS. fever. Leukocytosis. Pulmonary edema likely. Renal failure. CHF. DM. Hx of cardiac arrest. Recent sepsis. Autism. RECOMMENDATIONS/PLAN: Continue life support in ICU at the present time. Treat medical diseases. EEG on 06/29/19: Encephalopathy. HCT on 06/28/19: negative except brain atrophy. HISTORY OF PRESENT ILLNESS This is a 74-year-old male patient who is a [facility] with above medical diseases and Hx of PSVT was admitted on 06/24/19 due to symptoms of vomiting and fever. While was in ED, he had bradycardia that went to PEA. 5min to ROSC and he received atropine initially then 1 dose of epinephrine. He was intubated. Neurology was requested for consultation on 06/28/19. 06/30/19: Still on vent unresponsive. PAST MEDICAL HISTORY Cardiovascular: HTN, Syncope, Aortic stenosis (moderate), Other (PSVT; chronic RBBB) CENTRAL NERVOUS SYSTEM: Other (Mental retardation) GI: GERD, Other (dysphagia) Hepatobiliary: No pertinent hx Psych: Other (autism) Musculoskeletal: Osteoarthritis Rheumatologic: No pertinent hx Infectious disease: Other (MRSA) Renal/: UTI, Benign prostatic enlarg. Endocrine: No pertinent hx, Other (hypoglycemia) PAST SURGICAL HISTORY TURP, ligia fundoplication, Gtube placement. FAMILY HISTORY Unknown ALLERGIES Coded Allergies: Cephalosporins (Verified Allergy, Intermediate, 04/27/19) Penicillins (Verified Allergy, Intermediate, 04/27/19) Carbamazepine (Verified Allergy, Intermediate, 04/27/19) Meropenem (Verified Allergy, Intermediate, 04/27/19) BETA LACTAMS Penicillamine (Verified Allergy, Intermediate, 04/27/19) I S O L A T I O N *CONTACT* (Verified Allergy, Unknown, 04/27/19) mrsa + MEDICATIONS: Refer to [facility] SOCIAL HISTORY: Lives in [facility]. Denies current smoking, drinking, and illicit drug use. REVIEW OF SYSTEMS: Constitutional: No malnutrition, cachexia. Head: No recent traumatic brain or head injury. Skin: No edema, or rash. Ear: No infection. Eyes: No vision loss or color blindness. Nose: No bleeding or purulent discharges. Hearing: hearing decrease. Neck: No injury. Cardiac: CHF. Pulmonary: SOB. GI: No GI ulcer, GI bleeding. Urinary/genital: Renal failure. Endocrinologic: Diabetes Mellitus. Skeletomuscular: No muscular atrophy, deformity. Neurological: see HP. Psychiatric: Autism. Otherwise, not -npmbr review of systems. PHYSICAL EXAMINATION: General appearance is in subacute distress. HEENT: Normocephalic and nontraumatic. Eyes, nose, ears, and throat are u nremarkable. Neck is supple. No lymphadenopathy. No crepitus. Cardiovascular: S1, S2. Pulmonary: On vent. Abdomen: Bowel sounds are positive. Extremities: No rash, lesions. NEUROLOGICAL EXAMINATION: On vent. Unresponsive. Not oriented to time, place and person. PERRL. Corneal reflex elicited. EOMI not elicited. CN: no focal findings. Muscle tone: Decreased. Muscle strength: Minimal movements noted in feet to stimuli. DTR: 1 Plantar reflex: Neutral response bilaterally Gait: Unable to walk in this mentation. Sensory exam: Minimal response to stimuli. Not able to access cerebellar signs. F-T-N test not performed. Objective Objective Vital Signs Date Time Temp Pulse Resp B/P (MAP) Pulse Ox O2 Delivery O2 Flow Rate FiO2 06/30/19 13:11 100 Ventilator 35.0 06/30/19 13:00 85 19 115/73 (87) 06/30/19 12:00 98.0 98.0 Intake and Output 06/30/19 07:00 Intake Total 2446 ml Output Total 1100 ml Balance 1346 ml Intake Oral 375 ml IV Total 313 ml Tube Feeding 1508 ml Blood Product IV Normal Saline Flush 250 ml Output Urine Total 1080 ml Gastric Drainage Total 20 ml Vitals Signs Vitals VS - Last 72 Hours, by Label Date Time Temp Pulse Resp B/P (MAP) Pulse Ox O2 Delivery O2 Flow Rate FiO2 06/30/19 13:11 100 Ventilator 35.0 06/30/19 13:00 85 19 115/73 (87) 100 Ventilator 06/30/19 12:46 93 Ventilator 06/30/19 12:00 98.0 85 20 113/75 (88) 100 Ventilator 98.0 06/30/19 12:00 Mechanical Ventilator 06/30/19 11:39 100 Ventilator 06/30/19 11:00 82 19 111/80 (90) 100 Ventilator 06/30/19 10:00 83 19 106/73 (84) 100 Ventilator 06/30/19 09:07 100 Ventilator 06/30/19 09:00 78 19 90/62 (71) 100 Ventilator 06/30/19 08:40 100 Ventilator 06/30/19 08:37 100 Ventilator 06/30/19 08:36 83 80/65 06/30/19 08:00 Mechanical Ventilator 06/30/19 08:00 98.1 76 20 80/65 (70) 100 Ventilator 98.1 06/30/19 07:00 80 19 98/67 (77) 100 Ventilator 06/30/19 06:00 85 19 103/59 (74) 100 Ventilator 06/30/19 05:42 100 Ventilator 06/30/19 05:00 88 21 104/74 (84) 100 Ventilator 06/30/19 04:00 98.8 100 21 101/69 (80) 100 Ventilator 98.8 06/30/19 04:00 Mechanical Ventilator 06/30/19 03:52 100 Ventilator 06/30/19 03:00 100 28 103/75 (84) 100 Ventilator 06/30/19 02:00 81 20 109/68 (82) 100 Ventilator 06/30/19 01:32 100 Ventilator 06/30/19 01:00 89 19 132/84 (100) 100 Ventilator 06/30/19 00:01 98.5 92 22 136/86 (103) 100 Ventilator 98.5 06/29/19 23:59 Mechanical Ventilator 06/29/19 23:42 100 Ventilator 06/29/19 23:00 100 26 134/88 (103) 100 Ventilator 06/29/19 22:00 92 20 144/90 (108) 100 Ventilator 06/29/19 21:00 87 22 128/87 (101) 100 Ventilator 06/29/19 20:00 Mechanical Ventilator 35.0 06/29/19 20:00 98.6 84 20 137/81 (99) 100 Ventilator 98.6 06/29/19 19:51 100 Ventilator 06/29/19 19:00 85 22 120/83 (95) 100 Ventilator 06/29/19 18:10 100 Ventilator 06/29/19 18:00 98.4 80 16 106/76 (86) 100 Ventilator 98.4 06/29/19 17:00 78 18 107/71 (83) 100 Ventilator 06/29/19 16:00 Mechanical Ventilator 35.0 06/29/19 16:00 78 16 99/66 (77) 100 Ventilator 06/29/19 15:33 100 Ventilator 06/29/19 15:00 84 17 96/57 (70) 100 Ventilator 06/29/19 14:00 84 16 98/65 (76) 100 Ventilator 06/29/19 13:00 66 16 93/65 (74) 100 Ventilator 06/29/19 12:56 100 Ventilator 06/29/19 12:00 98.0 70 16 101/73 (82) 100 Ventilator 98.0 06/29/19 12:00 Mechanical Ventilator 35.0 06/29/19 11:00 66 18 79/57 (64) 100 Ventilator 06/29/19 10:45 100 Ventilator 06/29/19 10:00 72 19 112/69 (83) 100 Ventilator 06/29/19 09:00 70 16 118/71 (87) 100 Ventilator 06/29/19 08:54 73 06/29/19 08:42 100 Ventilator 06/29/19 08:30 70 118/71 (87) 06/29/19 08:15 72 115/70 (85) 06/29/19 08:00 Mechanical Ventilator 35.0 06/29/19 08:00 97.9 70 17 87/62 (70) 100 Ventilator 97.9 06/29/19 07:00 82 18 104/71 (82) 100 Ventilator Laboratory Laboratory Laboratory Tests Test 06/29/19 18:35 06/30/19 05:44 06/30/19 05:45 06/30/19 08:00 Glucose (Fingerstick) 95 mg/dL (70-99) 109 mg/dL (70-99) White Blood Count 9.7 x10^3/uL (4.0-11.0) Red Blood Count 3.82 x10^6/uL (4.30-5.70) Hemoglobin 11.2 g/dL (13.0-17.5) Hematocrit 33.3 % (39.0-53.0) Mean Corpuscular Volume 87 fL (79-100) Mean Corpuscular Hemoglobin 30 pg (25-35) Mean Corpuscular Hemoglobin Concent 34 g/dL (31-37) Red Cell Distribution Width 15.4 % (11.5-14.5) Platelet Count 338 x10^3/uL (140-400) Sodium Level 144 mmol/L (136-145) Potassium Level 4.0 mmol/L (3.5-5.1) Chloride Level 109 mmol/L (98-107) Carbon Dioxide Level 30 mmol/L (21-32) Anion Gap 5 (6-14) Blood Urea Nitrogen 21 mg/dL (8-26) Creatinine 0.7 mg/dL (0.7-1.3) Estimated GFR (Cockcroft-Gault) 110.9 BUN/Creatinine Ratio 30 (6-20) Glucose Level 111 mg/dL (70-99) Calcium Level 8.2 mg/dL (8.5-10.1) Total Bilirubin 0.2 mg/dL (0.2-1.0) Aspartate Amino Transf (AST/SGOT) 36 U/L (15-37) Alanine Aminotransferase (ALT/SGPT) 27 U/L (16-63) Alkaline Phosphatase 61 U/L (46-116) Total Protein 5.7 g/dL (6.4-8.2) Albumin 1.6 g/dL (3.4-5.0) Albumin/Globulin Ratio 0.4 (1.0-1.7) O2 Saturation 99 % (92-99) Arterial Blood pH 7.49 (7.35-7.45) Arterial Blood pCO2 at Patient Temp 33 mmHg (35-46) Arterial Blood pO2 at Patient Temp 140 mmHg (65-108) Arterial Blood HCO3 25 mmol/L (21-28) Arterial Blood Base Excess 2 mmol/L (-3-3) FiO2 35 Test 06/30/19 11:35 Glucose (Fingerstick) 106 mg/dL (70-99) Microbiology 06/25/19 - Final, Complete 06/25/19 - Final, Complete 06/25/19 - Final, Complete 06/25/19 Gram Stain Evaluation - Final, Complete 06/25/19 Sputum Culture - Final, Complete 06/25/19 Sputum Result 1 - Final, Complete 06/24/19 Urine Culture - Final, Complete 06/24/19 Urine Culture Result 1 (MALINI) - Final, Complete 06/24/19 Blood Culture - Final, Complete NO GROWTH AFTER 5 DAYS Comment Review of Relevant I have reviewed the following items aden (where applicable) has been applied. VANESSA EASTMAN MD Jun 30, 2019 14:10
--- NOTE | 2019-06-30 16:42 | PDOC2 ---
PALLIATIVE CARE Palliative Care Note Palliative Care Patient more awake. Noreen from [facility] provided contact number for Maryam Moreau (alternate DPOA on AD); [phone]. Not available until late evening. 1719: Spoke with Maryam Moreau. Plan meeting tomorrow at 1100. OTONIEL MICHEL Jun 30, 2019 16:42
--- NOTE | 2019-06-30 19:32 | EEG ---
DATE OF SERVICE: 06/28/2019 EEG NUMBER: [id number]. OBJECTIVE: This is a 74-year-old male patient with history of unresponsiveness for 3 days after sedation had been discontinued. EEG was requested to evaluate cerebral activity. METHODS: Twenty electrodes were applied according to the international 10-20 electrode placement system. EKG monitoring, hyperventilation, intermittent photic stimulation, monopolar and bipolar montages are routinely utilized. The record was obtained on a digital system with video monitoring. FINDINGS: 1. Background: The patient was recorded in the unresponsive state only. No physiological awake, drowsy and sleep states were recorded. The overall background amplitude is variable. No clear posterior dominant rhythm is observed. The overall background rhythm is with diffuse slowing in the theta and delta frequencies throughout the entire recording. 2. Abnormalities: No specific epileptiform discharge or electrographic seizure is seen. Diffuse slowing in the theta and delta frequencies throughout the entire recording. 3. Activation: Hyperventilation was not performed because the patient was in unresponsive state. Intermittent photic stimulation was performed with photic driving. IMPRESSION: This EEG is an abnormal study for the unresponsive state only. No physiological awake, drowsy and sleep states were recorded. No clear posterior dominant rhythm is observed. The overall background rhythm is with diffuse slowing in the theta and delta frequencies throughout the entire recording. No focal, lateralizing, specific epileptiform discharge or electrographic seizure is seen. This pattern of EEG is suggestive of encephalopathy. VANESSA EASTMAN MD DR: Alhaji JOB#: [id number] / [id number] CARLOS
[2019-06-30] MEDS ORDERED: ATROPINE 0.5 MG/5 ML DISP.SYRINGE. IV PRN (20:00)
[2019-06-30] MEDS ORDERED: IV NORMAL SALINE 500ML BAG 500 ML IV PRN (20:00)
[2019-06-30] MEDS: DEXMEDETOMIDINE 400 MCG in IV NORMAL SALINE 100ML 96 ML IV PRN (20:21)
[2019-06-30] MEDS: TERAZOSIN 1 MG CAPSULE. PO SCH (21:29)
[2019-06-30] MEDS: MIRTAZAPINE 15 MG TABLET PO SCH (21:30)
--- NOTE | 2019-06-30 23:15 | PN ---
DATE: 06/30/2019 SUBJECTIVE: The patient is resting, slightly propped up, off sedation, continued to be intubated and mechanically ventilated. He is definitely more awake, alert, opens his eyes spontaneously and to command turned his head and moves his limbs spontaneously. PHYSICAL EXAMINATION: GENERAL: When I examined him, he was pale, no jaundice, cyanosis, lymphadenopathy or thyromegaly. No jugular venous distension. No lower limb edema. VITAL SIGNS: His heart rate was 76, blood pressure was 80/65, temperature was 98.1, respiratory rate was 20, and oxygen saturation was 100% on FiO2 of 35%. HEAD, EYES, EARS, NOSE AND THROAT: Showed normocephalic, atraumatic with orotracheal and orogastric tube in place. NECK: Supple. CARDIAC: Normal first and second heart sounds with no gallop or murmur. CHEST: Clear to auscultation. No crepitation or rhonchi. ABDOMEN: Distended, soft, nontender. No guarding or rigidity. No organomegaly. All hernial orifices intact. Bowel sounds normal. NEUROLOGIC: He is definitely more awake, alert, opens his eyes spontaneously and turned his head on demand and moves his extremities spontaneously. His intake over the last 24 hours was 1600, output was 2600. LABORATORY DATA: His lab work as of this morning showed a white cell count 9700, hemoglobin 11, hematocrit 33, MCV 87, and platelet count 338,000. Serum sodium 144, potassium 4, chloride 109, bicarbonate 30, anion gap of 5, BUN 21, creatinine 0.7, estimated GFR was 110 mL per minute, his glucose 111, calcium was 8.2. Total bilirubin, AST, ALT, alkaline phosphatase were normal. Total protein was 5.7, albumin was 1.6. ASSESSMENT: 1. Sepsis, severe multifactorial including pneumonia, urinary tract infection, possibly right index finger infection. 2. He is status post pulseless electrical activity, cardiac arrest with subsequent acute respiratory failure, requiring intubation and mechanical ventilation. 3. He is currently on aztreonam, Flagyl, micafungin, doxycycline. 4. Other medical problems include: A. Paroxysmal supraventricular tachycardia. The heart rate is much improved now that he is on amiodarone. B. Moderate aortic stenosis. C. Mental retardation with autism. 5. The patient is actually more responsive today. He opens his eyes spontaneously and on command he turns his head and chewing on his tracheostomy tube, moving his extremities spontaneously. He has had a CT scan done, which was unremarkable except for age-related atrophy and microvascular disease. He has had an EEG, the results are still pending at the time of this dictation. PLAN: To continue trial weaning him off the ventilator. Continue with IV antibiotic. Continue with nutritional support. KANU GARCIA MD DR: JUDIE/nicolasa JOB#: [id number] / [id number]
[2019-07-01] VITALS (24 sets, daily range): BP systolic 75–125; BP diastolic 49–74
[2019-07-01] MEDS: fentaNYL PF VIAL 100 MCG/2 ML VIAL IV PRN ×2 (02:28→12:06)
[2019-07-01] MEDS: DEXMEDETOMIDINE 400 MCG in IV NORMAL SALINE 100ML 96 ML IV PRN (02:33)
[2019-07-01] MEDS: INSULIN LISPRO 300 UNITS/3 ML VIAL. SQ SCH ×4 (06:00→18:00)
--- NOTE | 2019-07-01 07:41 | PDOC ---
Infectious Disease Note Subjective Subjective Intubated, now responding some ROS ROS no n/v/d/fever Vital Sign Vital Signs Vital Signs Date Time Temp Pulse Resp B/P (MAP) Pulse Ox O2 Delivery O2 Flow Rate FiO2 07/01/19 07:28 100 Ventilator 07/01/19 06:00 70 17 82/60 (67) 07/01/19 04:00 99.5 99.5 07/01/19 02:58 35.0 Physical Exam PHYSICAL EXAM CONSTITUTIONAL: He is intubated, HEENT: Pupils are small, reactive. Normal conjunctivae. NECK: Supple, no JVD. LUNGS: Decreased at the bases. HEART: S1, S2. ABDOMEN: Soft. PEG tube without signs of any complications. GENITOURINARY: Had a Ortega in place. EXTREMITIES: Without clubbing, cyanosis or gross edema. His right index finger, about the nail has some erythema, has some peeling, drying of the skin. There is no pus. Do not appear to be tender. He has good radial pulse, on ulnar decreased, but palpable. SKIN: Warm to touch without signs of rash. IVs: he has a right IJ and a right hand peripheral IV, both appear to be clean. PORCELAIN SLUSHER no response, not sedated Labs Lab Laboratory Tests Test 06/30/19 08:00 06/30/19 11:35 06/30/19 18:13 07/01/19 00:55 O2 Saturation 99 % (92-99) Arterial Blood pH 7.49 (7.35-7.45) Arterial Blood pCO2 at Patient Temp 33 mmHg (35-46) Arterial Blood pO2 at Patient Temp 140 mmHg (65-108) Arterial Blood HCO3 25 mmol/L (21-28) Arterial Blood Base Excess 2 mmol/L (-3-3) FiO2 35 Glucose (Fingerstick) 106 mg/dL (70-99) 104 mg/dL (70-99) 93 mg/dL (70-99) Test 07/01/19 06:06 Glucose (Fingerstick) 122 mg/dL (70-99) Micro Microbiology 06/25/19 - Final, Resulted 06/25/19 - Final, Resulted 06/25/19 - Final, Resulted 06/25/19 - Preliminary, Resulted 06/25/19 - Preliminary, Resulted 06/25/19 - Preliminary, Resulted 06/25/19 Gram Stain Evaluation - Final, Resulted 06/25/19 Sputum Culture - Preliminary, Resulted 06/25/19 Sputum Result 1 - Final, Resulted 06/24/19 Urine Culture - Final, Complete 06/24/19 Urine Culture Result 1 (MALINI) - Final, Complete 06/24/19 Blood Culture - Preliminary, Resulted NO GROWTH AFTER 3 DAYS Objective Assessment sepsis - resolved Leukocytosis - better UTI - POA R Index finger infection - XRAY neg S/p PEA Multiple abx allergies - no rash Acute resp failure - intubated ? Pneumonia - POA H/o PEG tube infection H/o Afib - SVT controlled MRSA - + encephalopathy Plan Plan of Care d/c Tigecycline 06/26 Check sputum cult F/u labs and cults family meeting today D/w nursing KRYSTEN RIVAS MD Jul 01, 2019 07:41
[2019-07-01 08:00] LABS: BASE EXCESS ABG 1 mmol/L (-3-3); HCO3 ABG 25 mmol/L (21-28); PCO2 ABG 38 mmHg (35-46); PO2 ABG 138 mmHg (65-108); SAT O2 ABG 98 % (92-99)
--- NOTE | 2019-07-01 08:15 | RAD ---
EXAM: CHEST ONE VIEW. HISTORY: Respiratory failure. COMPARISON: 06/30/2019. FINDINGS: A frontal view of the chest is obtained. An endotracheal tube has its tip 5 cm above the akil. A right internal jugular central venous catheter has its tip in the superior cavoatrial junction. There is a small right pleural effusion. The inspiration is small. There is mild basilar atelectasis. There is no pneumothorax. The heart is not enlarged. IMPRESSION: 1. Small right pleural effusion. Basilar atelectasis. Electronically signed by: Bradly Mcdonough MD (07/01/2019 8:12 AM) [facility]
--- NOTE | 2019-07-01 08:31 | PN ---
DATE: 07/01/2019 SUBJECTIVE: The patient continued to be intubated and mechanically ventilated. He is off sedation, off Levophed. He is awake, alert, opens eyes, tracks and responds to verbal and painful stimuli. Apparently, the plan was to have a meeting with the family to decide whether he should be a DNR or DNI before making a final decision of extubation. PHYSICAL EXAMINATION: GENERAL: When I examined him, he looked pale, no jaundice, cyanosis or thyromegaly. No jugular venous distention. No limb edema. VITAL SIGNS: His heart rate was 70, blood pressure was 82/60, temperature was 99.5, respiratory rate was 17 and oxygen saturation was 100%. HEAD, EYES, EARS, NOSE AND THROAT: Normocephalic, atraumatic. NECK: Supple. HEART: Showed normal first and second heart sounds. No gallop or murmur. CHEST: Clear to auscultation. No crepitation or rhonchi. ABDOMEN: Distended, soft, nontender. No guarding or rigidity. No organomegaly. All hernial orifice intact. Bowel sounds normal. NEUROLOGIC: He was awake, alert, opens his eyes, tracks and responds appropriately. He moves all extremities spontaneously and to painful stimuli. His intake over the last 24 hours was 2446, output was 1055. LABORATORY DATA: No lab works available today and his lab works have been consistently within acceptable range. His blood sugars well controlled. ASSESSMENT: 1. Sepsis, severe with multifactorial including pneumonia, urinary tract infection and possibly right index finger infection. 2. He is status post pulseless electrical activity, cardiac arrest with subsequent acute respiratory failure requiring intubation and mechanical ventilation. 3. He is currently on aztreonam, Flagyl, micafungin. 4. Other medical problems include paroxysmal atrial supraventricular tachycardia, heart rate is much improved that he is on amiodarone. B. Moderate aortic stenosis. C. Mental retardation with autism. 5. The patient's level of consciousness has improved. He now open his eyes, tracks and responds appropriately. CT scan was done, which was unremarkable except for age-related atrophy and microvascular disease and his EEG is abnormal study for the unresponsive state only, no physiological awake, drowsy or sleep state was recorded. No clear posterior dominant rhythm was observed. The overall background rhythm is with diffuse slowing in the theta and delta frequencies throughout the entire recording. No focal, lateralizing, specific epileptiform discharge or electrographic seizures seen. The pattern of EEG is suggestive of an encephalopathy. PLAN: To obviously await discussion with the family and palliative care team to decide on goals of care. KANU GARCIA MD DR: JUDIE/nicolasa JOB#: [id number] / [id number]
[2019-07-01] MEDS: ASPIRIN CHEWABLE 81 MG TABLET. PEG SCH (08:43)
[2019-07-01] MEDS: MULTIVITAMINS,THERAPEUTIC 5 ML ORAL LIQUID. PEG SCH (08:43)
[2019-07-01] MEDS: APIXABAN 5 MG TABLET. PO SCH ×2 (08:43→21:22)
[2019-07-01] MEDS: BACITRACIN/POLYMYXIN B OPHTH OINTMENT 3.5GM TUBE. OD SCH ×2 (08:43→21:23)
[2019-07-01] MEDS: AMIODARONE HCL 200 MG TABLET. PEG SCH (08:44)
[2019-07-01] MEDS: FAMOTIDINE 20 MG TABLET. PEG SCH ×2 (08:44→21:22)
[2019-07-01] MEDS: VALPROIC ACID (AS SODIUM SALT) 250 MG/5 ML SOLUTION. PEG SCH ×2 (08:44→21:22)
[2019-07-01 09:03] LABS: FIO2 ABG 35
--- NOTE | 2019-07-01 09:51 | PDOC ---
PULMONARY PROGRESS NOTES Subjective PT ON AC MODE OFF SEDATION LAST CORINNE REQUIRED PRN SEDATION WITH PRECEDEX Vitals Vital Signs Date Time Temp Pulse Resp B/P (MAP) Pulse Ox O2 Delivery O2 Flow Rate FiO2 07/01/19 09:00 100 Ventilator 07/01/19 09:00 63 17 85/57 (66) 07/01/19 08:00 97.7 97.7 07/01/19 02:58 35.0 Comments ros unobtainable HEENT: Other Lungs: Clear Cardiovascular: S1, S2 Abdomen: Soft, Non-tender, Other (PEG in place) Extremities: No Edema, Other Skin: Warm Labs Laboratory Tests Test 06/29/19 18:35 06/30/19 05:44 06/30/19 05:45 06/30/19 08:00 Glucose (Fingerstick) 95 mg/dL (70-99) 109 mg/dL (70-99) White Blood Count 9.7 x10^3/uL (4.0-11.0) Red Blood Count 3.82 x10^6/uL (4.30-5.70) Hemoglobin 11.2 g/dL (13.0-17.5) Hematocrit 33.3 % (39.0-53.0) Mean Corpuscular Volume 87 fL (79-100) Mean Corpuscular Hemoglobin 30 pg (25-35) Mean Corpuscular Hemoglobin Concent 34 g/dL (31-37) Red Cell Distribution Width 15.4 % (11.5-14.5) Platelet Count 338 x10^3/uL (140-400) Sodium Level 144 mmol/L (136-145) Potassium Level 4.0 mmol/L (3.5-5.1) Chloride Level 109 mmol/L (98-107) Carbon Dioxide Level 30 mmol/L (21-32) Anion Gap 5 (6-14) Blood Urea Nitrogen 21 mg/dL (8-26) Creatinine 0.7 mg/dL (0.7-1.3) Estimated GFR (Cockcroft-Gault) 110.9 BUN/Creatinine Ratio 30 (6-20) Glucose Level 111 mg/dL (70-99) Calcium Level 8.2 mg/dL (8.5-10.1) Total Bilirubin 0.2 mg/dL (0.2-1.0) Aspartate Amino Transf (AST/SGOT) 36 U/L (15-37) Alanine Aminotransferase (ALT/SGPT) 27 U/L (16-63) Alkaline Phosphatase 61 U/L (46-116) Total Protein 5.7 g/dL (6.4-8.2) Albumin 1.6 g/dL (3.4-5.0) Albumin/Globulin Ratio 0.4 (1.0-1.7) O2 Saturation 99 % (92-99) Arterial Blood pH 7.49 (7.35-7.45) Arterial Blood pCO2 at Patient Temp 33 mmHg (35-46) Arterial Blood pO2 at Patient Temp 140 mmHg (65-108) Arterial Blood HCO3 25 mmol/L (21-28) Arterial Blood Base Excess 2 mmol/L (-3-3) FiO2 35 Test 06/30/19 11:35 06/30/19 18:13 07/01/19 00:55 07/01/19 06:06 Glucose (Fingerstick) 106 mg/dL (70-99) 104 mg/dL (70-99) 93 mg/dL (70-99) 122 mg/dL (70-99) Test 07/01/19 08:00 O2 Saturation 98 % (92-99) Arterial Blood pH 7.44 (7.35-7.45) Arterial Blood pCO2 at Patient Temp 38 mmHg (35-46) Arterial Blood pO2 at Patient Temp 138 mmHg (65-108) Arterial Blood HCO3 25 mmol/L (21-28) Arterial Blood Base Excess 1 mmol/L (-3-3) FiO2 35 Laboratory Tests Test 06/30/19 11:35 06/30/19 18:13 07/01/19 00:55 07/01/19 06:06 Glucose (Fingerstick) 106 mg/dL (70-99) 104 mg/dL (70-99) 93 mg/dL (70-99) 122 mg/dL (70-99) Test 07/01/19 08:00 O2 Saturation 98 % (92-99) Arterial Blood pH 7.44 (7.35-7.45) Arterial Blood pCO2 at Patient Temp 38 mmHg (35-46) Arterial Blood pO2 at Patient Temp 138 mmHg (65-108) Arterial Blood HCO3 25 mmol/L (21-28) Arterial Blood Base Excess 1 mmol/L (-3-3) FiO2 35 Medications Active Scripts Medications Dose Route/Sig Max Daily Dose Days Date Category Valproic Acid (Valproate Sodium) 250 Mg/5 Ml Solution 250 Mg PO DAILY 06/24/19 Reported Valproic Acid (Valproate Sodium) 250 Mg/5 Ml Solution 500 Mg PO HS 06/24/19 Reported Terazosin Hcl 2 Mg Capsule 1 Mg PO HS 06/24/19 Reported Ondansetron Odt (Ondansetron) 4 Mg Tab.rapdis 4 Mg PO Q6HRS PRN 06/24/19 Reported Lorazepam 2 Mg/1 Ml Oral.conc 0.5 Mg PO PRN Q8HRS PRN 06/24/19 Reported Famotidine 20 Mg Tablet 20 Mg PO BID 06/24/19 Reported Doxycycline Hyclate 100 Mg Tablet 1 Tab PO BID 10 06/24/19 Reported Cardizem Tablet (Diltiazem Hcl) 60 Mg Tablet 60 Mg PO QID 06/24/19 Reported Bactrim Ds Tablet (Sulfamethoxazole/Trimethoprim) 1 Each Tablet 1 Tab PO BID 10 06/24/19 Reported Bacitracin 3.5 Gm Oint...g. 1 Hesham OD BID 06/24/19 Reported Artificial Tears Eye Drops (Dextran 70/Hypromellose) 15 Ml Drops 1 Drop EACHEYE QID PRN 06/24/19 Reported Eliquis (Apixaban) 5 Mg Tablet 5 Mg PO BID 06/24/19 Reported Amiodarone Hcl 200 Mg Tablet 200 Mg PO DAILY 06/24/19 Reported Acetaminophen 325 Mg Tablet 650 Mg PO PRN Q6HRS PRN 06/24/19 Reported Aspirin 81 Mg Tab.chew 1 Tab PO DAILY 04/23/19 Reported Mirtazapine 15 Mg Tablet 1 Tab PO QHS 04/22/19 Reported Multi-Day Vitamins (Multivitamin) 1 Each Tablet 1 Tab PO DAILY 04/17/15 Reported Impression . 1. Acute hypoxemic respiratory failure. 2. Septic shock. 3. Leukocytosis. 4. Urinary tract infection. 5. Status post pulseless electrical activity. ACLS protocol was followed. The patient had return of spontaneous circulation within 5 minutes. 6. Multiple antibiotic allergies. 7. Possible pneumonia. 8. Status post percutaneous endoscopic gastrostomy. 9. History of atrial fibrillation. 10. History of methicillin-resistant Staph aureus infection. 11. 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 MORE AWAKE TODAY, WILL USE PRN HALDOL FAMILY MEETING TODAY, D/W PAT YESTERDAY WILL CONTINUE THE SAME PT DOES ASSIST VENTILATOR, IF EXTUBATED I THINK HE WILL DO OK FOR A SHORT PERIOD OF TIME, IF FAMILY WISHES EXTUBATION I WOULD FAVOR DNR AND DNI, PAVIOR TO DECISION D/W RT AND RN WILL CONTINUE SUPPORT FOR NOW CCT 30 MIN FORMULATING A PLAN, REVIEWING DATA, LABS, CXR RAKESH DICKINSON MD Jul 01, 2019 09:51
--- NOTE | 2019-07-01 10:40 | NUR ---
SS following up with discharge planning. Pt accepted at [facility], ; fax [phone]. Palliative Care RN notified. SS will continue to follow for discharge planning.
[2019-07-01] MEDS ORDERED: HALOPERIDOL LACTATE 5 MG/ML VIAL. IVP PRN (11:45)
--- NOTE | 2019-07-01 14:16 | PDOC ---
PROGRESS NOTES Assessment Assessment Metabolic encephalopathy. Hypoxia encephalopathy. Respiratory failure. ARDS. Fever. Leukocytosis. Pulmonary edema likely. Renal failure. CHF. DM. Hx of cardiac arrest. Recent sepsis. Autism. RECOMMENDATIONS/PLAN:. Continue treatment for medical diseases. OT/PT. EEG on 06/29/19: Encephalopathy. HCT on 06/28/19: negative except brain atrophy. HISTORY OF PRESENT ILLNESS This is a 74-year-old male patient who is a resident of [facility] with above medical diseases and Hx of PSVT was admitted on 06/24/19 due to symptoms of vomiting and fever. While was in ED, he had bradycardia that went to PEA. 5min to ROSC and he received atropine initially then 1 dose of epinephrine. He was intubated. Neurology was requested for consultation on 06/28/19. 07/01/19: On vent, MS improved some. PAST MEDICAL HISTORY Cardiovascular: HTN, Syncope, Aortic stenosis (moderate), Other (PSVT; chronic RBBB) CENTRAL NERVOUS SYSTEM: Other (Mental retardation) GI: GERD, Other (dysphagia) Hepatobiliary: No pertinent hx Psych: Other (autism) Musculoskeletal: Osteoarthritis Rheumatologic: No pertinent hx Infectious disease: Other (MRSA) Renal/: UTI, Benign prostatic enlarg. Endocrine: No pertinent hx, Other (hypoglycemia) PAST SURGICAL HISTORY TURP, ligia fundoplication, Gtube placement. FAMILY HISTORY Unknown ALLERGIES Coded Allergies: Cephalosporins (Verified Allergy, Intermediate, 04/27/19) Penicillins (Verified Allergy, Intermediate, 04/27/19) Carbamazepine (Verified Allergy, Intermediate, 04/27/19) Meropenem (Verified Allergy, Intermediate, 04/27/19) BETA LACTAMS Penicillamine (Verified Allergy, Intermediate, 04/27/19) I S O L A T I O N *CONTACT* (Verified Allergy, Unknown, 04/27/19) mrsa + MEDICATIONS: Refer to MAR SOCIAL HISTORY: Lives in [facility]. Denies current smoking, drinking, and illicit drug use. REVIEW OF SYSTEMS: Constitutional: No malnutrition, cachexia. Head: No recent traumatic brain or head injury. Skin: No edema, or rash. Ear: No infection. Eyes: No vision loss or color blindness. Nose: No bleeding or purulent discharges. Hearing: hearing decrease. Neck: No injury. Cardiac: CHF. Pulmonary: SOB. GI: No GI ulcer, GI bleeding. Urinary/genital: Renal failure. Endocrinologic: Diabetes Mellitus. Skeletomuscular: No muscular atrophy, deformity. Neurological: see HP. Psychiatric: Autism. Otherwise, not -gxkwg review of systems. PHYSICAL EXAMINATION: General appearance is in subacute distress. HEENT: Normocephalic and nontraumatic. Eyes, nose, ears, and throat are unremarkable. Neck is supple. No lymphadenopathy. No crepitus. Cardiovascular: S1, S2. Pulmonary: On vent. Abdomen: Bowel sounds are positive. Extremities: No rash, lesions. NEUROLOGICAL EXAMINATION: On vent. Not oriented to time, place and person. PERRL. Corneal reflex elicited. EOMI not elicited. CN: no focal findings. Muscle tone: Decreased. Muscle strength: Movements noted to stimuli. DTR: 1-2 Plantar reflex: Neutral response bilaterally Gait: Unable to walk in this mentation. Sensory exam: Minimal response to stimuli. Not able to access cerebellar signs. F-T-N test not performed. Objective Objective Vital Signs Date Time Temp Pulse Resp B/P (MAP) Pulse Ox O2 Delivery O2 Flow Rate FiO2 07/01/19 13:45 100 Ventilator 07/01/19 13:00 56 16 75/52 (60) 07/01/19 12:06 35.0 07/01/19 12:00 97.0 97.0 Intake and Output 07/01/19 07:00 Intake Total 2712 ml Output Total 940 ml Balance 1772 ml IV Total 52 ml Tube Feeding 1910 ml Other 750 ml Output Urine Total 940 ml Vitals Signs Vitals VS - Last 72 Hours, by Label Date Time Temp Pulse Resp B/P (MAP) Pulse Ox O2 Delivery O2 Flow Rate FiO2 07/01/19 13:45 100 Ventilator 07/01/19 13:00 56 16 75/52 (60) 100 Ventilator 07/01/19 12:36 100 Ventilator 07/01/19 12:06 100 Ventilator 35.0 07/01/19 12:00 Mechanical Ventilator 07/01/19 12:00 97.0 58 20 97/65 (76) 98 Ventilator 97.0 07/01/19 11:00 62 15 87/62 (70) 100 Ventilator 07/01/19 10:54 100 Ventilator 07/01/19 10:00 62 18 111/74 (86) 100 Ventilator 07/01/19 09:00 100 Ventilator 07/01/19 09:00 63 17 85/57 (66) 100 Ventilator 07/01/19 08:44 58 96/61 07/01/19 08:00 Mechanical Ventilator 07/01/19 08:00 97.7 54 20 80/49 (59) 98 Ventilator 97.7 07/01/19 07:28 100 Ventilator 07/01/19 07:00 53 17 125/72 (89) 100 Ventilator 07/01/19 06:00 70 17 82/60 (67) 100 Ventilator 07/01/19 05:54 100 Ventilator 07/01/19 05:00 51 21 84/56 (65) 100 Ventilator 07/01/19 04:00 99.5 59 20 96/52 (67) 98 Ventilator 99.5 07/01/19 04:00 Mechanical Ventilator 07/01/19 03:49 99 Ventilator 07/01/19 03:00 51 19 76/59 (65) 100 Ventilator 07/01/19 02:58 20 100 Ventilator 35.0 07/01/19 02:28 20 100 Ventilator 35.0 07/01/19 02:00 99 Ventilator 07/01/19 02:00 54 20 83/61 (68) 100 Ventilator 07/01/19 01:00 59 19 98/64 (75) 100 Ventilator 07/01/19 00:15 99 Ventilator 07/01/19 00:00 99.7 65 20 91/68 (76) 99 Ventilator 99.7 06/30/19 23:59 Mechanical Ventilator 06/30/19 23:00 80 27 90/65 (73) 99 Ventilator 06/30/19 22:00 80 24 112/70 (84) 98 Ventilator 06/30/19 21:29 80 90/64 06/30/19 21:00 98 27 76/59 (65) 99 Ventilator 06/30/19 20:00 99.5 98 30 119/79 (92) 99 Ventilator 99.5 06/30/19 20:00 Mechanical Ventilator 06/30/19 19:59 99 Ventilator 06/30/19 19:00 86 23 111/78 (89) 98 Ventilator 06/30/19 18:20 97 Ventilator 06/30/19 18:00 86 19 109/74 (86) 100 Ventilator 06/30/19 17:00 80 19 121/79 (93) 100 Ventilator 06/30/19 16:05 Mechanical Ventilator 06/30/19 16:00 82 19 119/78 (92) 100 Ventilator 06/30/19 15:59 98 Ventilator 06/30/19 15:00 80 19 119/83 (95) 100 Ventilator 06/30/19 14:00 78 19 113/70 (84) 100 Ventilator 06/30/19 13:41 100 Ventilator 35.0 06/30/19 13:11 100 Ventilator 35.0 06/30/19 13:00 85 19 115/73 (87) 100 Ventilator 06/30/19 12:46 93 Ventilator 06/30/19 12:00 98.0 85 20 113/75 (88) 100 Ventilator 98.0 06/30/19 12:00 Mechanical Ventilator 06/30/19 11:39 100 Ventilator 06/30/19 11:00 82 19 111/80 (90) 100 Ventilator 06/30/19 10:00 83 19 106/73 (84) 100 Ventilator 06/30/19 09:07 100 Ventilator 06/30/19 09:00 78 19 90/62 (71) 100 Ventilator 06/30/19 08:40 100 Ventilator 06/30/19 08:37 100 Ventilator 06/30/19 08:36 83 80/65 06/30/19 08:00 Mechanical Ventilator 06/30/19 08:00 98.1 76 20 80/65 (70) 100 Ventilator 98.1 06/30/19 07:00 80 19 98/67 (77) 100 Ventilator Laboratory Laboratory Laboratory Tests Test 06/30/19 18:13 07/01/19 00:55 07/01/19 06:06 07/01/19 08:00 Glucose (Fingerstick) 104 mg/dL (70-99) 93 mg/dL (70-99) 122 mg/dL (70-99) O2 Saturation 98 % (92-99) Arterial Blood pH 7.44 (7.35-7.45) Arterial Blood pCO2 at Patient Temp 38 mmHg (35-46) Arterial Blood pO2 at Patient Temp 138 mmHg (65-108) Arterial Blood HCO3 25 mmol/L (21-28) Arterial Blood Base Excess 1 mmol/L (-3-3) FiO2 35 Test 07/01/19 11:50 Glucose (Fingerstick) 72 mg/dL (70-99) Microbiology 06/25/19 - Final, Complete 06/25/19 - Final, Complete 06/25/19 - Final, Complete 06/25/19 Gram Stain Evaluation - Final, Complete 06/25/19 Sputum Culture - Final, Complete 06/25/19 Sputum Result 1 - Final, Complete 06/24/19 Urine Culture - Final, Complete 06/24/19 Urine Culture Result 1 (MALINI) - Final, Complete 06/24/19 Blood Culture - Final, Complete NO GROWTH AFTER 5 DAYS Medication Medications Current Medications Atropine Sulfate (ATROPINE 0.5mg SYRINGE) 0.5 mg PRN Q5MIN PRN IV SEE COMMENTS; Start 06/30/19 at 20:00 Dexmedetomidine HCl 400 mcg/ Sodium Chloride 100 ml @ 0 mls/hr CONT PRN IV ANXIETY / AGITATION Last administered on 07/01/19at 02:33; Start 06/30/19 at 20:00 Haloperidol Lactate (Haldol Inj) 5 mg PRN Q6HRS PRN IVP AGITATION Last administered on 07/01/19at 11:48; Start 07/01/19 at 11:45 Sodium Chloride 500 ml @ 500 mls/hr 1X PRN PRN IV HYPOTENSION; Start 06/30/19 at 20:00 Comment Review of Relevant I have reviewed the following items aden (where applicable) has been applied. VANESSA EASTMAN MD Jul 01, 2019 14:16
--- NOTE | 2019-07-01 16:27 | PDOC2 ---
PALLIATIVE CARE Palliative Care Note Palliative Care Patient remained on Vent. Restless requiring sedation through night and again this am. Met with Maryam Moreau (alternate DPELVIN) past Director at [facility] where patient was a resident. and Noreen Little Corinna patient's sister does not want to participate in medical decision---wants 2 physician to make decisions. Reviewed medical condition: UTI, pneumonia, S/P code. Discussed options for care; patient likely will meet weaning trials and be able to be extubated. Asked if patient should need re-intubation would they want re- intubation. Maryam would like to discuss with physician, but would be in favor of no re-intubation. Patient has been accepted at [facility]. They would like patient to go to [facility] to see if he could get stronger. They believe patient is able to recognize them. Shared that patient had his own apartment in the past. Enjoyed watching TV. Maryam will call Corinna/DPELVIN/sister and discuss with her. They would like to be here when patient is extubated. Spoke with Dr. Roberts. Plan extubation later today after sedation has worn off. Above reviwed with Nicky PHILIP and Palma SOLORIO. OTONIEL MICHEL Jul 01, 2019 16:27
--- NOTE | 2019-07-01 18:26 | NUR ---
Pt extubated at 1549. RN, RT at bedside. Pt tolerated well, placed on 2L NC- no distress noted
[2019-07-01] MEDS: TERAZOSIN 1 MG CAPSULE. PO SCH (21:22)
[2019-07-01] MEDS: MIRTAZAPINE 15 MG TABLET PO SCH (21:22)
[2019-07-02] VITALS (16 sets, daily range): BP systolic 82–114; BP diastolic 52–77
[2019-07-02 05:30] LABS: CREATININE 0.8 mg/dL (0.7-1.3)
[2019-07-02] MEDS: INSULIN LISPRO 300 UNITS/3 ML VIAL. SQ SCH ×3 (05:31→12:00)
--- NOTE | 2019-07-02 07:45 | PDOC ---
Infectious Disease Note Subjective Subjective awake, extubated , non verbal ROS ROS no n/v diarrhea ++ no fever Vital Sign Vital Signs Vital Signs Date Time Temp Pulse Resp B/P (MAP) Pulse Ox O2 Delivery O2 Flow Rate FiO2 07/02/19 06:00 93 20 110/72 (85) 99 Room Air 07/02/19 05:00 2.0 07/02/19 04:00 98.2 98.2 Physical Exam PHYSICAL EXAM CONSTITUTIONAL: awake, HEENT: Pupils are small, reactive. Normal conjunctivae. NECK: Supple, no JVD. LUNGS: Decreased at the bases. HEART: S1, S2. ABDOMEN: Soft. PEG tube without signs of any complications. GENITOURINARY: Had a Ortega in place. EXTREMITIES: Without clubbing, cyanosis or gross edema. His right index finger, about the nail has some erythema, has some peeling, drying of the skin. There is no pus. Do not appear to be tender. He has good radial pulse, on ulnar decreased, but palpable. SKIN: Warm to touch without signs of rash. IVs: he has a right IJ and a right hand peripheral IV, both appear to be clean. RN OTOLARYNGOLOGY no response, not sedated Labs Lab Laboratory Tests Test 07/01/19 08:00 07/01/19 11:50 07/01/19 18:17 07/02/19 00:16 O2 Saturation 98 % (92-99) Arterial Blood pH 7.44 (7.35-7.45) Arterial Blood pCO2 at Patient Temp 38 mmHg (35-46) Arterial Blood pO2 at Patient Temp 138 mmHg (65-108) Arterial Blood HCO3 25 mmol/L (21-28) Arterial Blood Base Excess 1 mmol/L (-3-3) FiO2 35 Glucose (Fingerstick) 72 mg/dL (70-99) 96 mg/dL (70-99) 93 mg/dL (70-99) Test 07/02/19 05:10 07/02/19 05:12 Sodium Level 144 mmol/L (136-145) Potassium Level 4.0 mmol/L (3.5-5.1) Chloride Level 108 mmol/L (98-107) Carbon Dioxide Level 28 mmol/L (21-32) Anion Gap 8 (6-14) Blood Urea Nitrogen 18 mg/dL (8-26) Creatinine 0.8 mg/dL (0.7-1.3) Estimated GFR (Cockcroft-Gault) 95.0 Glucose Level 103 mg/dL (70-99) Calcium Level 8.0 mg/dL (8.5-10.1) Glucose (Fingerstick) 99 mg/dL (70-99) Micro Microbiology 06/25/19 - Final, Resulted 06/25/19 - Final, Resulted 06/25/19 - Final, Resulted 06/25/19 - Preliminary, Resulted 06/25/19 - Preliminary, Resulted 06/25/19 - Preliminary, Resulted 06/25/19 Gram Stain Evaluation - Final, Resulted 06/25/19 Sputum Culture - Preliminary, Resulted 06/25/19 Sputum Result 1 - Final, Resulted 06/24/19 Urine Culture - Final, Complete 06/24/19 Urine Culture Result 1 (MALINI) - Final, Complete 06/24/19 Blood Culture - Preliminary, Resulted NO GROWTH AFTER 3 DAYS Objective Assessment sepsis - resolved Leukocytosis - better UTI - POA R Index finger infection - XRAY neg S/p PEA Multiple abx allergies - no rash Acute resp failure - extubated ? Pneumonia - POA H/o PEG tube infection H/o Afib - SVT controlled MRSA - + encephalopathy Plan Plan of Care off antibiotics check c diff F/u labs and cults D/w nursing KRYSTEN RIVAS MD Jul 02, 2019 07:45
[2019-07-02] MEDS: BACITRACIN/POLYMYXIN B OPHTH OINTMENT 3.5GM TUBE. OD SCH (09:00)
--- NOTE | 2019-07-02 09:27 | PDOC ---
PULMONARY PROGRESS NOTES Subjective DID WILL ON TRIAL EXTUBATED NOW ON RA NO DISTRESS Vitals Vital Signs Date Time Temp Pulse Resp B/P (MAP) Pulse Ox O2 Delivery O2 Flow Rate FiO2 07/02/19 08:00 Room Air 07/02/19 08:00 91 22 104/67 (79) 91 07/02/19 07:00 98.8 98.8 07/02/19 05:00 2.0 General: Alert HEENT: Other Lungs: Clear Cardiovascular: S1, S2 Abdomen: Soft, Non-tender, Other (PEG in place) Neuro Exam: Alert Extremities: No Edema, Other Skin: Warm Labs Laboratory Tests Test 06/30/19 11:35 06/30/19 18:13 07/01/19 00:55 07/01/19 06:06 Glucose (Fingerstick) 106 mg/dL (70-99) 104 mg/dL (70-99) 93 mg/dL (70-99) 122 mg/dL (70-99) Test 07/01/19 08:00 07/01/19 11:50 07/01/19 18:17 07/02/19 00:16 O2 Saturation 98 % (92-99) Arterial Blood pH 7.44 (7.35-7.45) Arterial Blood pCO2 at Patient Temp 38 mmHg (35-46) Arterial Blood pO2 at Patient Temp 138 mmHg (65-108) Arterial Blood HCO3 25 mmol/L (21-28) Arterial Blood Base Excess 1 mmol/L (-3-3) FiO2 35 Glucose (Fingerstick) 72 mg/dL (70-99) 96 mg/dL (70-99) 93 mg/dL (70-99) Test 07/02/19 05:10 07/02/19 05:12 Sodium Level 144 mmol/L (136-145) Potassium Level 4.0 mmol/L (3.5-5.1) Chloride Level 108 mmol/L (98-107) Carbon Dioxide Level 28 mmol/L (21-32) Anion Gap 8 (6-14) Blood Urea Nitrogen 18 mg/dL (8-26) Creatinine 0.8 mg/dL (0.7-1.3) Estimated GFR (Cockcroft-Gault) 95.0 Glucose Level 103 mg/dL (70-99) Calcium Level 8.0 mg/dL (8.5-10.1) Glucose (Fingerstick) 99 mg/dL (70-99) Laboratory Tests Test 07/01/19 11:50 07/01/19 18:17 07/02/19 00:16 07/02/19 05:10 Glucose (Fingerstick) 72 mg/dL (70-99) 96 mg/dL (70-99) 93 mg/dL (70-99) Sodium Level 144 mmol/L (136-145) Potassium Level 4.0 mmol/L (3.5-5.1) Chloride Level 108 mmol/L (98-107) Carbon Dioxide Level 28 mmol/L (21-32) Anion Gap 8 (6-14) Blood Urea Nitrogen 18 mg/dL (8-26) Creatinine 0.8 mg/dL (0.7-1.3) Estimated GFR (Cockcroft-Gault) 95.0 Glucose Level 103 mg/dL (70-99) Calcium Level 8.0 mg/dL (8.5-10.1) Test 07/02/19 05:12 Glucose (Fingerstick) 99 mg/dL (70-99) Medications Active Scripts Medications Dose Route/Sig Max Daily Dose Days Date Category Valproic Acid (Valproate Sodium) 250 Mg/5 Ml Solution 250 Mg PO DAILY 06/24/19 Reported Valproic Acid (Valproate Sodium) 250 Mg/5 Ml Solution 500 Mg PO HS 06/24/19 Reported Terazosin Hcl 2 Mg Capsule 1 Mg PO HS 06/24/19 Reported Ondansetron Odt (Ondansetron) 4 Mg Tab.rapdis 4 Mg PO Q6HRS PRN 06/24/19 Reported Lorazepam 2 Mg/1 Ml Oral.conc 0.5 Mg PO PRN Q8HRS PRN 06/24/19 Reported Famotidine 20 Mg Tablet 20 Mg PO BID 06/24/19 Reported Doxycycline Hyclate 100 Mg Tablet 1 Tab PO BID 10 06/24/19 Reported Cardizem Tablet (Diltiazem Hcl) 60 Mg Tablet 60 Mg PO QID 06/24/19 Reported Bactrim Ds Tablet (Sulfamethoxazole/Trimethoprim) 1 Each Tablet 1 Tab PO BID 10 06/24/19 Reported Bacitracin 3.5 Gm Oint...g. 1 Hesham OD BID 06/24/19 Reported Artificial Tears Eye Drops (Dextran 70/Hypromellose) 15 Ml Drops 1 Drop EACHEYE QID PRN 06/24/19 Reported Eliquis (Apixaban) 5 Mg Tablet 5 Mg PO BID 06/24/19 Reported Amiodarone Hcl 200 Mg Tablet 200 Mg PO DAILY 06/24/19 Reported Acetaminophen 325 Mg Tablet 650 Mg PO PRN Q6HRS PRN 06/24/19 Reported Aspirin 81 Mg Tab.chew 1 Tab PO DAILY 04/23/19 Reported Mirtazapine 15 Mg Tablet 1 Tab PO QHS 04/22/19 Reported Multi-Day Vitamins (Multivitamin) 1 Each Tablet 1 Tab PO DAILY 04/17/15 Reported Impression . 1. Acute hypoxemic respiratory failure. 2. Septic shock. 3. Leukocytosis. 4. Urinary tract infection. 5. Status post pulseless electrical activity. ACLS protocol was followed. The patient had return of spontaneous circulation within 5 minutes. 6. Multiple antibiotic allergies. 7. Possible pneumonia. 8. Status post percutaneous endoscopic gastrostomy. 9. History of atrial fibrillation. 10. History of methicillin-resistant Staph aureus infection. 11. SUSPECT ANOXIC BRAIN INJURY MILD IMPROVED WITH TIME Plan . EXTUBATED NO SIGN OF DISTRESS WILL CONTINUE THE SAME WILL DEFER TO TEAM FOR DISPOSITION RAKESH DICKINSON MD Jul 02, 2019 09:27
[2019-07-02] MEDS: VALPROIC ACID (AS SODIUM SALT) 250 MG/5 ML SOLUTION. PEG SCH (09:37)
[2019-07-02] MEDS: AMIODARONE HCL 200 MG TABLET. PEG SCH (09:37)
[2019-07-02] MEDS: APIXABAN 5 MG TABLET. PO SCH (09:37)
[2019-07-02] MEDS: MULTIVITAMINS,THERAPEUTIC 5 ML ORAL LIQUID. PEG SCH (09:37)
[2019-07-02] MEDS: FAMOTIDINE 20 MG TABLET. PEG SCH (09:37)
[2019-07-02] MEDS: ASPIRIN CHEWABLE 81 MG TABLET. PEG SCH (09:37)
--- NOTE | 2019-07-02 11:11 | NUR ---
SS following up with discharge planning. Discharge orders received for [facility], ; fax [phone]. SS phoned and faxed discharge orders to [facility]. Pt will discharge today and go to [facility] at 1400 via [facility] ambulance, . Pt, pt's RN, and pt's family, Maryam, Julissa, and Corinna notified.
[2019-07-02] MEDS: ANTI-COAG MONITOR BY PHARMACY. MC PRN (11:14)
--- NOTE | 2019-07-02 11:33 | SNU/HH DC ---
DISCHARGE ORDERS DISCHARGE INFORMATION: DISCHARGE DATE: Jul 02, 2019 FINAL DIAGNOSIS Problems Medical Problems: (1) Acute respiratory failure Status: Acute (2) Fever Status: Acute (3) Paronychia of finger of right hand Status: Acute (4) PEA (Pulseless electrical activity) Status: Acute (5) Sepsis Status: Acute CONDITION ON DISCHARGE: Stable CODE STATUS: Code Status: DNR/DNI NURSING HOME: SNF STAY <30 DAYS: Yes LTAC: ADMIT TO LTAC: Yes POST DISCHARGE ORDERS: ACTIVITY ORDERS: Resume previous activity, Other, see below WEIGHT BEARING STATUS: No restrictions DIET AFTER DISCHARGE: TREATMENT/EQUIPMENT ORDERS: ADAPTIVE EQUIPMENT NEEDED: None, Wheelchair Physical Therapy For: Evalulation/Treatment Occupational Therapy For: Evaluation/Treatment Speech Language Pathology For: Evaluation/Treatment DISCHARGE MEDICATIONS: Home Meds Reported Medications Valproate Sodium (VALPROIC ACID) 250 Mg/5 Ml Solution, 250 MG PO DAILY for seizures, MISC 06/24/19 Valproate Sodium (VALPROIC ACID) 250 Mg/5 Ml Solution, 500 MG PO HS for seizures, MISC 06/24/19 Terazosin Hcl (TERAZOSIN HCL) 2 Mg Capsule, 1 MG PO HS for urniary retention, CAP 06/24/19 Ondansetron (ONDANSETRON ODT) 4 Mg Tab.rapdis, 4 MG PO Q6HRS PRN for NAUSEA, TAB 06/24/19 Lorazepam (LORAZEPAM) 2 Mg/1 Ml Oral.conc, 0.5 MG PO PRN Q8HRS PRN for ANXIETY / AGITATION, MISC 06/24/19 Famotidine (FAMOTIDINE) 20 Mg Tablet, 20 MG PO BID for GERD, TAB 06/24/19 Diltiazem Hcl (CARDIZEM TABLET) 60 Mg Tablet, 60 MG PO QID for FOR HYPERTENSION, #30 TAB 0 Refills 06/24/19 Bacitracin (BACITRACIN) 3.5 Gm Oint...g., 1 ALYSSA OD BID for rash around PEG, #3.5 GM 06/24/19 Dextran 70/Hypromellose (ARTIFICIAL TEARS EYE DROPS) 15 Ml Drops, 1 DROP EACHEYE QID PRN for QID PRN, #30 ML 0 Refills 06/24/19 Apixaban (ELIQUIS) 5 Mg Tablet, 5 MG PO BID for thin blood, TAB 06/24/19 Amiodarone Hcl (AMIODARONE HCL) 200 Mg Tablet, 200 MG PO DAILY for Heart rate, TAB 06/24/19 Acetaminophen (ACETAMINOPHEN) 325 Mg Tablet, 650 MG PO PRN Q6HRS PRN for FEVER, TAB 06/24/19 Aspirin (ASPIRIN) 81 Mg Tab.chew, 1 TAB PO DAILY for PREVENTION OF OK/STROKE, #30 TAB 3 Refills 04/23/19 Mirtazapine (MIRTAZAPINE) 15 Mg Tablet, 1 TAB PO QHS for sleep, #30 TAB 3 Refills 04/22/19 Multivitamin (MULTI-DAY VITAMINS) 1 Each Tablet, 1 TAB PO DAILY, #30 TAB 04/17/15 Discontinued Reported Medications Doxycycline Hyclate (DOXYCYCLINE HYCLATE) 100 Mg Tablet, 1 TAB PO BID for right index finger infection for 10 Days, #20 TAB 06/24/19 Sulfamethoxazole/Trimethoprim (BACTRIM DS TABLET) 1 Each Tablet, 1 TAB PO BID for infection for 10 Days, #20 TAB 0 Refills 06/24/19 KANU GARCIA MD Jul 02, 2019 11:33
--- NOTE | 2019-07-02 13:20 | DS ---
DATE OF DISCHARGE: 07/02/2019 HOSPITAL COURSE: The patient is a 74-year-old male patient, a resident at [facility], who was admitted on 06/24/2019. Apparently, he was brought to the Emergency Room as he was noted to be febrile and hypertensive. His right index finger was infected and that was erythematous and swollen and I did start him on doxycycline a few days prior to admission. Apparently, his condition has worsened and was transferred to [facility] Emergency Room, he was evaluated, the nurse practitioner called me stated that they did start him on Levaquin and shortly thereafter the patient went into bradycardia and pulseless electrical activity. He was intubated and mechanically ventilated, was admitted to ICU. He was extensively investigated in the Emergency Room and was found to have leukocytosis. His chemistry was essentially unremarkable. Urinalysis, however, showed large amount of leukocyte esterase and more than 40 wbc's and too many bacteria. His toxic screen was negative and his chest x-ray was consistent with pulmonary edema versus pneumonia. He was admitted with acute hypoxic respiratory failure following pulseless electrical activity cardiac arrest. He was hypotensive, which he required Levophed and sedation with fentanyl, Versed. He was seen in consultation by the safety counselor, Infectious Disease specialist as well as neurologist. His premorbid condition consists of being has mental retardation with autism and so he is normally nonverbal and he was treated with IV antibiotic and continued on mechanical ventilation and his sedation was discontinued. Eventually, he was successfully extubated yesterday. We have had a lengthy discussion with his family and his code status was changed to DNR/DNI and as he continued to require tube feeding, physical and occupational therapy, a decision was made to transfer him to [facility]. PHYSICAL EXAMINATION: GENERAL: When I saw him this morning, he was resting slightly propped up in bed, in no apparent respiratory distress. He was awake, alert; however, open his eyes, tracks, but does not really follow command. He was pale, but no jaundice, cyanosis or thyromegaly. No jugular venous distention. No limb edema. VITAL SIGNS: Her heart rate was 87, blood pressure was 106/72, temperature was 98.8, respiratory rate was 21 and oxygen saturation was 98% on room air. HEAD, EYES, EARS, NOSE AND THROAT: Showed normocephalic, atraumatic. NECK: Supple. HEART: Showed normal first and second heart sounds. No gallop or murmur. CHEST: Clear to auscultation. No crepitation or rhonchi. ABDOMEN: Distended, soft with gastrostomy tube in place. NEUROLOGIC: He is awake, alert, responding. He opens his eyes, tracks. He is nonverbal, but moves his extremities spontaneously. His intake over the last 24 hours was 2700 and output was 985. LABORATORY DATA: As of this morning, his white cell count was 9700, hemoglobin 11, hematocrit 33, MCV 87, and platelet count 338,000. His chemistry as of this morning showed a serum sodium 144, potassium 4, chloride 108, bicarbonate 28, anion gap of 8, BUN 18, creatinine 0.8, estimated GFR was 95 mL per minute. Glucose 103, calcium was 8. DISCHARGE MEDICATIONS: He was discharged and transferred to LTAC to continue on Tylenol 650 mg every 6 hours as needed, amiodarone 200 mg once a day, apixaban 5 mg twice a day, aspirin 81 mg once a day, bacitracin ointment applied topically twice a day to a rash around his PEG tube. He is on artificial tears 1 drop to both eyes 4 times a day, diltiazem, Cardizem 60 mg 4 times a day, famotidine 20 mg twice a day, lorazepam 0.5 mg every 8 hours as needed, mirtazapine 15 mg at bedtime, multivitamin 1 tablet once a day, ondansetron 4 mg every 6 hours, terazosin 1 mg at bedtime, valproic acid 500 mg at bedtime and valproic acid 250 mg once a day. FINAL DISCHARGE DIAGNOSES: 1. Sepsis severe with probably multifactorial including pneumonia, urinary tract infection and possible right index finger infection that has resolved. 2. He is status post pulseless electrical activity cardiac arrest with subsequent acute respiratory failure requiring intubation and mechanical ventilation. 3. He has completed antibiotic therapy in the form of aztreonam, Flagyl and micafungin. 4. Has multiple other medical problems including: A. Paroxysmal atrial fibrillation, supraventricular tachycardia, responding very well to amiodarone. B. Moderate aortic stenosis. C. Mental retardation with autism. D. The patient's level of consciousness has improved and he was successfully extubated. KANU GARCIA MD DR: Ant JOB#: [id number] / [id number]
--- NOTE | 2019-07-02 14:38 | PDOC ---
PROGRESS NOTES Assessment Assessment Metabolic encephalopathy. Hypoxia encephalopathy. Respiratory failure. ARDS. Fever. Leukocytosis. Pulmonary edema likely. Renal failure. CHF. DM. Hx of cardiac arrest. Recent sepsis. Autism. RECOMMENDATIONS/PLAN:. Continue treatment for medical diseases. OT/PT. EEG on 06/29/19: Encephalopathy. HCT on 06/28/19: negative except brain atrophy. HISTORY OF PRESENT ILLNESS This is a 74-year-old male patient who is a [facility] with above medical diseases and Hx of PSVT was admitted on 06/24/19 due to symptoms of vomiting and fever. While was in ED, he had bradycardia that went to PEA. 5min to ROSC and he received atropine initially then 1 dose of epinephrine. He was intubated. Neurology was requested for consultation on 06/28/19. 07/02/19: On . MS improved more. PAST MEDICAL HISTORY Cardiovascular: HTN, Syncope, Aortic stenosis (moderate), Other (PSVT; chronic RBBB) CENTRAL NERVOUS SYSTEM: Other (Mental retardation) GI: GERD, Other (dysphagia) Hepatobiliary: No pertinent hx Psych: Other (autism) Musculoskeletal: Osteoarthritis Rheumatologic: No pertinent hx Infectious disease: Other (MRSA) Renal/: UTI, Benign prostatic enlarg. Endocrine: No pertinent hx, Other (hypoglycemia) PAST SURGICAL HISTORY TURP, ligia fundoplication, Gtube placement. FAMILY HISTORY Unknown ALLERGIES Coded Allergies: Cephalosporins (Verified Allergy, Intermediate, 04/27/19) Penicillins (Verified Allergy, Intermediate, 04/27/19) Carbamazepine (Verified Allergy, Intermediate, 04/27/19) Meropenem (Verified Allergy, Intermediate, 04/27/19) BETA LACTAMS Penicillamine (Verified Allergy, Intermediate, 04/27/19) I S O L A T I O N *CONTACT* (Verified Allergy, Unknown, 04/27/19) mrsa + MEDICATIONS: Refer to MAR SOCIAL HISTORY: Lives in [facility]. Denies current smoking, drinking, and illicit drug use. REVIEW OF SYSTEMS: Constitutional: No malnutrition, cachexia. Head: No recent traumatic brain or head injury. Skin: No edema, or rash. Ear: No infection. Eyes: No vision loss or color blindness. Nose: No bleeding or purulent discharges. Hearing: hearing decrease. Neck: No injury. Cardiac: CHF. Pulmonary: SOB. GI: No GI ulcer, GI bleeding. Urinary/genital: Renal failure. Endocrinologic: Diabetes Mellitus. Skeletomuscular: No muscular atrophy, deformity. Neurological: see HP. Psychiatric: Autism. Otherwise, not -gnbdo review of systems. PHYSICAL EXAMINATION: General appearance is in subacute distress. HEENT: Normocephalic and nontraumatic. Eyes, nose, ears, and throat are unremarkable. Neck is supple. No lymphadenopathy. No crepitus. Cardiovascular: S1, S2. Pulmonary: On vent. Abdomen: Bowel sounds are positive. Extremities: No rash, lesions. NEUROLOGICAL EXAMINATION: Off vent. Not oriented to time, place and person. PERRL. Corneal reflex elicited. EOMI. CN: no focal findings. Muscle tone: Decreased. Muscle strength: Movements noted to stimuli. DTR: 1-2 Plantar reflex: Neutral response bilaterally Gait: Unable to walk in this mentation. Sensory exam: Withdraw response to stimuli. No other cerebellar signs elicited. F-T-N test not performed. Objective Objective Vital Signs Date Time Temp Pulse Resp B/P (MAP) Pulse Ox O2 Delivery O2 Flow Rate FiO2 07/02/19 13:12 81 20 82/57 (65) 98 Room Air 07/02/19 12:12 98.0 98.0 07/02/19 05:00 2.0 Intake and Output 07/02/19 07:00 Intake Total 2092 ml Output Total 1010 ml Balance 1082 ml Tube Feeding 1529 ml Blood Product IV Normal Saline Flush 240 ml Other 323 ml Output Urine Total 885 ml Stool Total 125 ml Vitals Signs Vitals VS - Last 72 Hours, by Label Date Time Temp Pulse Resp B/P (MAP) Pulse Ox O2 Delivery O2 Flow Rate FiO2 07/02/19 13:12 81 20 82/57 (65) 98 Room Air 07/02/19 12:14 Room Air 07/02/19 12:12 98.0 81 18 91/52 (65) 96 Room Air 98.0 07/02/19 11:13 87 17 85/52 (63) 98 Room Air 07/02/19 10:00 87 21 106/72 (83) 96 Room Air 07/02/19 09:37 86 107/60 07/02/19 09:20 86 21 107/60 (76) 97 Room Air 07/02/19 08:00 Room Air 07/02/19 08:00 91 22 104/67 (79) 91 Room Air 07/02/19 07:00 98.8 93 22 114/77 (89) 97 Room Air 98.8 07/02/19 06:00 93 20 110/72 (85) 99 Room Air 07/02/19 05:00 84 21 85/61 (69) 97 Nasal Cannula 2.0 07/02/19 04:00 Nasal Cannula 2.0 07/02/19 04:00 98.2 94 24 95/63 (74) 94 Nasal Cannula 2.0 98.2 07/02/19 03:00 90 22 98/62 (74) 98 Nasal Cannula 2.0 07/02/19 02:00 92 23 99/64 (76) 99 Nasal Cannula 2.0 07/02/19 01:00 94 21 93/68 (76) 99 Nasal Cannula 2.0 07/02/19 00:00 98.0 102 24 97/65 (76) 98 Nasal Cannula 2.0 98.0 07/01/19 23:59 Nasal Cannula 2.0 07/01/19 23:00 100 20 120/67 (84) 95 Nasal Cannula 2.0 07/01/19 22:00 93 19 95/63 (74) 99 Nasal Cannula 2.0 07/01/19 21:22 80 95/65 07/01/19 21:00 78 17 95/65 (75) 100 Nasal Cannula 2.0 07/01/19 20:00 Nasal Cannula 2.0 07/01/19 20:00 97.8 78 17 97/67 (77) 100 Nasal Cannula 2.0 97.8 07/01/19 19:00 75 14 102/65 (77) 100 Nasal Cannula 2.0 07/01/19 18:00 77 20 107/65 (79) 100 Nasal Cannula 2.0 07/01/19 17:06 100 Ventilator 07/01/19 17:00 96.7 71 16 117/72 (87) 100 Ventilator 96.7 07/01/19 16:00 Mechanical Ventilator 07/01/19 16:00 72 16 109/68 (82) 100 Ventilator 07/01/19 15:41 100 Ventilator 07/01/19 15:00 62 16 99/61 (74) 100 Ventilator 07/01/19 14:00 56 16 85/53 (64) 100 Ventilator 07/01/19 13:45 100 Ventilator 07/01/19 13:00 56 16 75/52 (60) 100 Ventilator 07/01/19 12:36 100 Ventilator 07/01/19 12:06 100 Ventilator 35.0 07/01/19 12:00 Mechanical Ventilator 07/01/19 12:00 97.0 58 20 97/65 (76) 98 Ventilator 97.0 07/01/19 11:00 62 15 87/62 (70) 100 Ventilator 07/01/19 10:54 100 Ventilator 07/01/19 10:00 62 18 111/74 (86) 100 Ventilator 07/01/19 09:00 100 Ventilator 07/01/19 09:00 63 17 85/57 (66) 100 Ventilator 07/01/19 08:44 58 96/61 07/01/19 08:00 Mechanical Ventilator 07/01/19 08:00 97.7 54 20 80/49 (59) 98 Ventilator 97.7 07/01/19 07:28 100 Ventilator 07/01/19 07:00 53 17 125/72 (89) 100 Ventilator Laboratory Laboratory Laboratory Tests Test 07/01/19 18:17 07/02/19 00:16 07/02/19 05:10 07/02/19 05:12 Glucose (Fingerstick) 96 mg/dL (70-99) 93 mg/dL (70-99) 99 mg/dL (70-99) Sodium Level 144 mmol/L (136-145) Potassium Level 4.0 mmol/L (3.5-5.1) Chloride Level 108 mmol/L (98-107) Carbon Dioxide Level 28 mmol/L (21-32) Anion Gap 8 (6-14) Blood Urea Nitrogen 18 mg/dL (8-26) Creatinine 0.8 mg/dL (0.7-1.3) Estimated GFR (Cockcroft-Gault) 95.0 Glucose Level 103 mg/dL (70-99) Calcium Level 8.0 mg/dL (8.5-10.1) Test 07/02/19 13:08 Glucose (Fingerstick) 99 mg/dL (70-99) Microbiology 06/25/19 - Final, Complete 06/25/19 - Final, Complete 06/25/19 - Final, Complete 06/25/19 Gram Stain Evaluation - Final, Complete 06/25/19 Sputum Culture - Final, Complete 06/25/19 Sputum Result 1 - Final, Complete 06/24/19 Urine Culture - Final, Complete 06/24/19 Urine Culture Result 1 (MALINI) - Final, Complete 06/24/19 Blood Culture - Final, Complete NO GROWTH AFTER 5 DAYS Comment Review of Relevant I have reviewed the following items aden (where applicable) has been applied. VANESSA EASTMAN MD Jul 02, 2019 14:38
--- NOTE | 2019-07-02 15:50 | NUR ---
Discharge Note: [facility] E[facility] ICU Discharge instructions and discharge home medications reviewed with Other facility and a copy given. All questions have been answered and understanding verbalized. The following instructions and handouts were given: RN report given to TAMERA Norman at [facility]. Discontinued lines and drains: R TL IJ remained intact for transfer to [facility]. Patient discharged to [facility]. EMS transported patient from [facility] facility.
== END 2019-07-02 15:53 | DRG 870 ==
LOC: ER 16:44 → 4 NORTH 18:10 → 1 WEST ICU 20:56
PROVIDERS: ADMIT Internal Medicine; ATTEND Internal Medicine
PROC: 5A1955Z Respiratory Ventilation, Greater than 96 Consecutive Hours (ICD-10-PCS; principal; 2019-06-24)
PROC: 0BH17EZ Insertion of Endotracheal Airway into Trachea, Via Natural or Artificial Opening (ICD-10-PCS; 2019-06-24)
PROC: 02HV33Z Insertion of Infusion Device into Superior Vena Cava, Percutaneous Approach (ICD-10-PCS; 2019-06-24)
PROC: B548ZZA Ultrasonography of Superior Vena Cava, Guidance (ICD-10-PCS; 2019-06-24)
DX: A41.9 Sepsis, unspecified organism (principal); J96.01 Acute respiratory failure with hypoxia; G93.41 Metabolic encephalopathy; I50.43 Acute on chronic combined systolic (congestive) and diastolic (congestive) heart failure; J69.0 Pneumonitis due to inhalation of food and vomit; R65.21 Severe sepsis with septic shock; I46.9 Cardiac arrest, cause unspecified; F84.0 Autistic disorder; G93.1 Anoxic brain damage, not elsewhere classified; I42.8 Other cardiomyopathies; I47.1 Supraventricular tachycardia; N39.0 Urinary tract infection, site not specified; E11.9 Type 2 diabetes mellitus without complications; M19.90 Unspecified osteoarthritis, unspecified site; F79 Unspecified intellectual disabilities; G31.9 Degenerative disease of nervous system, unspecified; I11.0 Hypertensive heart disease with heart failure; I48.0 Paroxysmal atrial fibrillation; L03.011 Cellulitis of right finger; N40.0 Benign prostatic hyperplasia without lower urinary tract symptoms; Z86.14 Personal history of Methicillin resistant Staphylococcus aureus infection; Z66 Do not resuscitate; Z88.1 Allergy status to other antibiotic agents; Z93.1 Gastrostomy status
CPT/HCPCS: 36415; 36556; 36600; 51702; 70450; 71045; 71250; 73120; 74018; 80048; 80053; 80202; 80307; 81001; 82140; 82150; 82553; 82805; 82962; 83605; 83690; 83735; 83880; 84145; 84484; 85007; 85025; 85027; 85610; 85730; 87040; 87070; 87086; 87205; 87493; 87641; 93005; 93308; 94002; 94003; 94640; 95816; 96361; 96365; 96366; 96375; J0171; J1630; J1650; J1815; J1940; J1956; J2248; J2250; J2405; J3010; J3243; J3370; J3490; J7030; J7040; J7050; 99285-25; G0378

== ENCOUNTER 2019-12-17 08:20 | Emergency (ER) | payer MEDICARE, OTHER ==
[~2019-12-17] VITALS: Ht 160 cm; Wt 70.0 kg
[2019-12-17 08:20] VITALS: BP 136/71
[~2019-12-17 08:20] MED LIST changes: +ACET325T21 PO; +AMIO200T4 PO; +APIX5TAB PO; +BACI3.5O8 OD; +CIPR500T94 PO; +DILT60TA3 PO; +DOXY100T PO; -EPINEPHrine SYRINGE 1 MG/10 ML SYRINGE ONE; +FAMO20TA5 PO; +IPRA3AMP29 NEB; +LORA2ORA2 PO; +ONDA-84 IVP; -ONDA4TAB11 IVP; +ONDA4TAB12 PO; +SULF1TAB24 PO; +TERA2CAP3 PO; +VALP250S3 PO; +prostat PO
--- NOTE | 2019-12-17 08:51 | PHYS DOC ---
Past Medical History Past Medical History: Diabetes-Type II, Other Additional Past Medical Histor: RESP FAILURE,DYSPHAGIA,AUTISUM,URINARY RETENTION Past Surgical History: Other Additional Past Surgical Histo: G-TUBE PLACEMENT Smoking Status: Never Smoker Alcohol Use: None Drug Use: None General Adult EDM: Chief Complaint: OTHER COMPLAINTS HPI: HPI: 74-year-old male presenting the emergency department today after G-tube dislodgment within the last 30 minutes to an hour. He denies any pain and otherwise has no symptoms. Onset today. Location GI tract. Duration constant. No alleviating factors. Review of systems negative for chest pain shortness of breath abdominal pain vomiting fevers chills. All other review of system negative. ED course: 74-year-old male presenting with G tube dislodgment. The tube was replaced with a new tube 24 German. 20 cc of saline used to fill the balloon. Gastric contents easily withdrawn. We will discharge the patient to follow-up with PCP in 2 to 3 days. During the patient's care I used an N95 mask, gloves, and eye protection. Review of Systems: Review of Systems: Constitutional: Denies fever or chills. [] Eyes: Denies change in visual acuity. [] HENT: Denies nasal congestion or sore throat. [] Respiratory: Denies cough or shortness of breath. [] Cardiovascular: Denies chest pain or edema. [] GI: Denies abdominal pain, nausea, vomiting, bloody stools or diarrhea. [] : Denies dysuria. [] Musculoskeletal: Denies back pain or joint pain. [] Integument: Denies rash. [] Neurologic: Denies headache, focal weakness or sensory changes. [] Endocrine: Denies polyuria or polydipsia. [] Lymphatic: Denies swollen glands. [] Psychiatric: Denies depression or anxiety. [] Heart Score: Risk Factors: Risk Factors: DM, Current or recent (<one month) smoker, HTN, HLP, family history of CAD, obesity. Risk Scores: Score 0 - 3: 2.5% MACE over next 6 weeks - Discharge Home Score 4 - 6: 20.3% MACE over next 6 weeks - Admit for Clinical Observation Score 7 - 10: 72.7% MACE over next 6 weeks - Early Invasive Strategies Allergies: Allergies: Allergies Coded Allergies Type Severity Reaction Last Updated Verified Cephalosporins Allergy Intermediate 04/27/19 Yes Penicillins Allergy Intermediate 04/27/19 Yes carbamazepine Allergy Intermediate 04/27/19 Yes meropenem Allergy Intermediate 04/27/19 Yes penicillamine Allergy Intermediate 04/27/19 Yes I S O L A T I O N *CONTACT* Allergy Unknown 04/27/19 Yes Physical Exam: PE: Constitutional: Well developed, well nourished, no acute distress, non-toxic appearance. [] HENT: Normocephalic, atraumatic, bilateral external ears normal, oropharynx moist, no oral exudates, nose normal. [] Eyes: PERRLA, EOMI, conjunctiva normal, no discharge. [] Neck: Normal range of motion, no tenderness, supple, no stridor. [] Cardiovascular:Heart rate regular rhythm, no murmur [] Lungs & Thorax: Bilateral breath sounds clear to auscultation [] Abdomen: Bowel sounds normal, soft, no tenderness, no masses, no pulsatile masses. Patient's ostomy has some minimal bleeding with some minimal bleeding. no rebound tenderness or gaurding. Skin: Warm, dry, no erythema, no rash. [] Back: No tenderness, no CVA tenderness. [] Extremities: No tenderness, no cyanosis, no clubbing, ROM intact, no edema. [] Neurologic: Alert and oriented X 3, normal motor function, normal sensory function, no focal deficits noted. [] Psychologic: Affect normal, judgement normal, mood normal. [] EKG: EKG: [] Radiology/Procedures: Radiology/Procedures: [] Course & Med Decision Making: Course & Med Decision Making Pertinent Labs and Imaging studies reviewed. (See chart for details) [] Dragon Disclaimer: Dragon Disclaimer: This electronic medical record was generated, in whole or in part, using a voice recognition dictation system. Departure Departure Impression: Primary Impression: Gastrostomy tube dysfunction Disposition: HOME, SELF-CARE Condition: STABLE Referrals: KANU GARCIA MD (PCP) MAGUI VERNON MD Dec 17, 2019 08:51
== END 2019-12-17 09:48 | disposition home or self-care (01) ==
LOC: ER 08:20
DX: K94.23 Gastrostomy malfunction (principal); E11.9 Type 2 diabetes mellitus without complications; Z88.0 Allergy status to penicillin; Z88.1 Allergy status to other antibiotic agents; Z91.041 Radiographic dye allergy status; Z88.8 Allergy status to other drugs, medicaments and biological substances; Y83.8 Other surgical procedures as the cause of abnormal reaction of the patient, or of later complication, without mention of misadventure at the time of the procedure; Y92.89 Other specified places as the place of occurrence of the external cause
CPT/HCPCS: 43762; 99284

== ENCOUNTER → 2020-08-30 | Outpatient (CLI) | payer MEDICARE, OTHER ==
[~2020-08-30] MED LIST changes: -AMIO200T4 PO; +AMIO200T6 PO; +MULT-445 PO; -MULT1TAB52 PO
--- NOTE | 2020-08-30 13:54 | RAD ---
EXAM: Right ribs, 3 views; chest, 2 views. HISTORY: Fall. COMPARISON: 07/01/2019 FINDINGS: 2 views of the chest and 3 views of the right ribs are obtained. There is mild elevation of the right hemidiaphragm. There are chronic appearing interstitial changes. There is no consolidation , protrusion or pneumothorax. There are degenerative changes throughout the visualized cervical spine . There are degenerative changes involving the shoulders. No displaced fracture is seen. IMPRESSION: No acute pulmonary or osseous finding. Mild elevation of the right hemidiaphragm. Electronically signed by: Lia Knight MD (08/30/2020 1:52 PM) [id number]
== END ==
LOC: RAD 12:40
PROVIDERS: ATTEND Internal Medicine
DX: M47.812 Spondylosis without myelopathy or radiculopathy, cervical region (principal); M19.012 Primary osteoarthritis, left shoulder; M19.011 Primary osteoarthritis, right shoulder
CPT/HCPCS: 71046; 71100

== ENCOUNTER 2020-12-30 20:00 | Emergency (ER) | payer MEDICARE, OTHER ==
[~2020-12-30] VITALS: Ht 170.2 cm; Wt 63.6 kg
[~2020-12-30 20:00] MED LIST changes: -CIPR500T PO; +CIPR500T2 PO; +TERA10CA3 PO
[2020-12-30] MEDS ORDERED: IV NORMAL SALINE 1000ML BAG 1,000 ML IV ONE (20:30)
--- NOTE | 2020-12-30 20:30 | EKG ---
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
--- NOTE | 2020-12-30 20:53 | RAD ---
Exam: CT head and cervical spine INDICATION: Pain, status post fall TECHNIQUE: Sequential axial images through the head and cervical spine were obtained without the admi nistration of IV contrast. Exposure: One or more of the following in the visualized dose reduction techniques were utilized for this examination: 1. Automated exposure control 2. Adjustment of the MA and/or KV according to patient size 3. Use of iterative of reconstructive technique Comparisons: None FINDINGS: Head: No focal parenchymal lesion or hemorrhage is identified. There is no midline shift or sulcal effaceme nt. Mild patchy hypodensity in the periventricular white matter. No acute vascular territory infarction i s identified. Turner-white distinction is preserved. The ventricular system is within normal limits without compression hydrocephalus. The basal cisterns are well maintained. Extra cranial soft tissue scalp contusion overlying the left occipital region. The visualized portion s of the paranasal sinuses and mastoid air cells are well-pneumatized. No acute fractures. Cervical spine: Straightening of cervical spine which may positional. Vertebral body heights are well-maintained. Fracture to the cervical spine is not identified. Multilevel spondylotic change in cervical spine with degenerative disease greatest at C3-C4, C4-C5 an d C5-C6. Mild bilateral facet arthropathy is also noted in the cervical spine. Visualized paraspinal soft tissues are unremarkable. IMPRESSION: 1. Extra cranial soft tissue scalp contusion overlying the left occipital region without underlying osseous or intracranial abnormality. 2. Negative CT C-spine for acute traumatic injury. Electronically signed by: Mike Torrez MD (12/30/2020 8:51 PM) [facility]
[2020-12-30 21:01] LABS: BASO % 1 % (0-3); EOS % 0 % (0-3); HEMATOCRIT 35.4 % (39.0-53.0); HEMOGLOBIN 12.2 g/dL (13.0-17.5); LYMPH # 0.7 x10^3/uL (1.0-4.8); LYMPH % 6 % (24-48); MEAN CORPUSCULAR HEMOGLOBIN 33 pg (25-35); MEAN CORPUSCULAR HGB CONC 35 g/dL (31-37); MEAN CORPUSCULAR VOLUME 94 fL (79-100); MONO # 1.1 x10^3/uL (0.0-1.1); MONO % 10 % (0-9); NEUT # 9.2 x10^3/uL (1.8-7.7); NEUT % 83 % (31-73); PLATELET COUNT 197 x10^3/uL (140-400); RED BLOOD COUNT 3.75 x10^6/uL (4.30-5.70); RED CELL DISTRIBUTION WIDTH 14.2 % (11.5-14.5)
[2020-12-30 21:14] LABS: CALCIUM 8.4 mg/dL (8.5-10.1); CREATININE 1.3 mg/dL (0.7-1.3); GFR 54.1
[2020-12-30 21:20] LABS: ALBUMIN 2.5 g/dL (3.4-5.0); ALBUMIN/GLOBULIN RATIO 0.8 (1.0-1.7); MAGNESIUM 2.3 mg/dL (1.8-2.4); TOTAL BILIRUBIN 0.6 mg/dL (0.2-1.0); TOTAL PROTEIN 5.7 g/dL (6.4-8.2)
--- NOTE | 2020-12-30 21:37 | RAD ---
Exam: Pelvis 1 view INDICATION: Pain, fall TECHNIQUE: Frontal view of the pelvis Comparisons: None FINDINGS: Bone mineralization is normal. No acute or healed fractures. Soft tissues are unremarkable. Joint spa samuel are well-maintained. IMPRESSION: No acute osseous abnormality. Electronically signed by: Mike Torrez MD (12/30/2020 9:34 PM) [facility]
[2020-12-30 21:46] LABS: BILIRUBIN,URINE SMALL (NEG); CLARITY,URINE CLOUDY; COLOR,URINE AMBER
[2020-12-30 21:47] LABS: BACTERIA,URINE 0 /HPF (0-FEW); NITRITE,URINE NEGATIVE (NEG); PH,URINE 5.5 (<5.0-8.0); PROTEIN,URINE 100 mg/dL (NEG-TRACE); RBC,URINE 20-40 /HPF (0-2); WBC,URINE OCC /HPF (0-4)
--- NOTE | 2020-12-30 21:56 | RAD ---
Exam: Chest one view INDICATION: Weakness, fall TECHNIQUE: Frontal view of the chest Comparisons: 12/22/2020 FINDINGS: The cardiomediastinal silhouette and pulmonary vessels are within normal limits. Hazy bilateral airspace disease. No pleural effusion. IMPRESSION: Diffuse bilateral airspace disease may represent edema or infectious process. Electronically signed by: Mike Torrez MD (12/30/2020 9:53 PM) [facility]
--- NOTE | 2020-12-30 22:18 | PHYS DOC ---
Past Medical History Past Medical History: Diabetes-Type II, Seizure, UTI, Other Additional Past Medical Histor: RESP FAILURE,DYSPHAGIA,AUTISUM,URINARY RETENTION,BPH,COG COMM DEF Past Medical History Limited secondary to patient nonverbal at baseline Past Surgical History: Other Additional Past Surgical Histo: G-TUBE PLACEMENT Past Surgical History Limited secondary to patient nonverbal at baseline Smoking Status: Never Smoker Alcohol Use: None Drug Use: None Social History Limited secondary to patient nonverbal at baseline General Adult EDM: Chief Complaint: MECHANICAL FALL HPI: HPI: Patient is a 75 year old male with history of autism who is nonverbal at baseline presents via EMS with report of nonwitnessed fall out of bed from assisted just prior to arrival. [facility] reported patient was found on the floor. Patient had recently been seen and admitted to [facility]. History of present illness limited secondary to patient nonverbal at baseline Review of Systems: Review of Systems: Review of systems limited secondary to patient nonverbal at baseline Heart Score: C/O Chest Pain: N/A Current Medications: Current Medications Medications (Trade) Dose Ordered Sig/Jason Start Time Stop Time Status Last Admin Dose Admin Sodium Chloride 1,000 ml @ 1,000 mls/hr 1X ONCE 12/30/20 20:30 12/30/20 21:29 DC 12/30/20 21:20 1,000 MLS/HR Allergies: Allergies: Allergies Coded Allergies Type Severity Reaction Last Updated Verified Cephalosporins Allergy Intermediate 12/22/20 Yes Penicillins Allergy Intermediate 12/22/20 Yes carbamazepine Allergy Intermediate 12/22/20 Yes meropenem Allergy Intermediate 12/22/20 Yes I S O L A T I O N *CONTACT* Allergy Unknown 04/27/19 Yes KAREEM Inhibitors Adverse Reaction Intermediate COUGH 12/22/20 Yes Physical Exam: PE: Constitutional: No acute distress, non-toxic appearance HENT: Normocephalic, posterior left occipital scalp contusion noted, mucous membranes dry, some old food vs dried blood noted on mouth Eyes: PERRL, conjunctiva normal, no discharge Neck: Normal range of motion, no tenderness, supple Lungs & Thorax: No respiratory distress, equal chest rise and fall Abdomen: Soft, no tenderness, no guarding/rebound tenderness/distention Skin: Warm, dry, no erythema, no rash Extremities: No tenderness, ROM limited to lower extremities due to rigidity, no edema Neurologic: Alert but nonverbal, no focal deficits noted Psychologic: Limited, judgment abnormal Current Patient Data: Labs: Laboratory Tests Test 12/30/20 19:50 12/30/20 20:21 12/30/20 21:03 White Blood Count 11.0 x10^3/uL (4.0-11.0) Red Blood Count 3.75 x10^6/uL (4.30-5.70) L Hemoglobin 12.2 g/dL (13.0-17.5) L Hematocrit 35.4 % (39.0-53.0) L Mean Corpuscular Volume 94 fL (79-100) Mean Corpuscular Hemoglobin 33 pg (25-35) Mean Corpuscular Hemoglobin Concent 35 g/dL (31-37) Red Cell Distribution Width 14.2 % (11.5-14.5) Platelet Count 197 x10^3/uL (140-400) Neutrophils (%) (Auto) 83 % (31-73) H Lymphocytes (%) (Auto) 6 % (24-48) L Monocytes (%) (Auto) 10 % (0-9) H Eosinophils (%) (Auto) 0 % (0-3) Basophils (%) (Auto) 1 % (0-3) Neutrophils # (Auto) 9.2 x10^3/uL (1.8-7.7) H Lymphocytes # (Auto) 0.7 x10^3/uL (1.0-4.8) L Monocytes # (Auto) 1.1 x10^3/uL (0.0-1.1) Eosinophils # (Auto) 0.0 x10^3/uL (0.0-0.7) Basophils # (Auto) 0.0 x10^3/uL (0.0-0.2) Sodium Level 149 mmol/L (136-145) H Potassium Level 4.0 mmol/L (3.5-5.1) Chloride Level 111 mmol/L (98-107) H Carbon Dioxide Level 26 mmol/L (21-32) Anion Gap 12 (6-14) Blood Urea Nitrogen 40 mg/dL (8-26) H Creatinine 1.3 mg/dL (0.7-1.3) Estimated GFR (Cockcroft-Gault) 54.1 BUN/Creatinine Ratio 31 (6-20) H Glucose Level 123 mg/dL (70-99) H Lactic Acid Level 1.6 mmol/L (0.4-2.0) Calcium Level 8.4 mg/dL (8.5-10.1) L Magnesium Level 2.3 mg/dL (1.8-2.4) Total Bilirubin 0.6 mg/dL (0.2-1.0) Aspartate Amino Transferase (AST) 23 U/L (15-37) Alanine Aminotransferase (ALT) 17 U/L (16-63) Alkaline Phosphatase 61 U/L (46-116) Creatine Kinase 60 U/L (39-308) Creatine Kinase MB (Mass) 0.7 ng/mL (0.0-3.6) Creatine Kinase MB Relative Index 1.2 % (0-4) Troponin I Quantitative 0.038 ng/mL (0.000-0.055) Total Protein 5.7 g/dL (6.4-8.2) L Albumin 2.5 g/dL (3.4-5.0) L Albumin/Globulin Ratio 0.8 (1.0-1.7) L Glucose (Fingerstick) 146 mg/dL (70-99) H Urine Collection Type U cath Urine Color [place] Urine Clarity Cloudy Urine pH 5.5 (<5.0-8.0) Urine Specific [place] >=1.030 (1.000-1.030) Urine Protein 100 mg/dL (NEG-TRACE) Urine Glucose (UA) Negative mg/dL (NEG) Urine Ketones (Stick) Trace mg/dL (NEG) Urine Blood Large (NEG) Urine Nitrite Negative (NEG) Urine Bilirubin Small (NEG) Urine Urobilinogen Dipstick 1.0 mg/dL (0.2 mg/dL) Urine Leukocyte Esterase Trace (NEG) Urine RBC 20-40 /HPF (0-2) Urine WBC Occ /HPF (0-4) Urine Squamous Epithelial Cells None /LPF Urine Transitional Epithelial Cells Few /LPF Urine Bacteria 0 /HPF (0-FEW) Urine Mucus Marked /LPF Laboratory Tests 12/30/20 19:50 Laboratory Tests 12/30/20 19:50 Vital Signs: Vital Signs Date Time Temp Pulse Resp B/P (MAP) Pulse Ox O2 Delivery O2 Flow Rate FiO2 12/30/20 20:02 97.4 104 18 178/62 (100) 94 Room Air 97.4 EKG: EKG: @2011 Sinus tachycardia at 106bpm, baseline artifact from movement, NO definative ST elevation, QRS 114ms, QT/QTc 318/424ms, ST depression in V4-V6 noted, RBBB. Compared to prior EKG from 06/24/2019 which is similar to today's EKG. Radiology/Procedures: Radiology/Procedures: PROCEDURE: CHEST AP ONLY Exam: Chest one view INDICATION: Weakness, fall TECHNIQUE: Frontal view of the chest Comparisons: 12/22/2020 FINDINGS: The cardiomediastinal silhouette and pulmonary vessels are within normal limits. Hazy bilateral airspace disease. No pleural effusion. IMPRESSION: Diffuse bilateral airspace disease may represent edema or infectious process. Electronically signed by: Mike Torrez MD (12/30/2020 9:53 PM) [facility] PROCEDURE: CT HEAD AND CERVICAL SPINE WO Exam: CT head and cervical spine INDICATION: Pain, status post fall TECHNIQUE: Sequential axial images through the head and cervical spine were obtained without the administration of IV contrast. Exposure: One or more of the following in the visualized dose reduction techniques were utilized for this examination: 1. Automated exposure control 2. Adjustment of the MA and/or KV according to patient size 3. Use of iterative of reconstructive technique Comparisons: None FINDINGS: Head: No focal parenchymal lesion or hemorrhage is identified. There is no midline shift or sulcal effacement. Mild patchy hypodensity in the periventricular white matter. No acute vascular territory infarction is identified. Turner-white distinction is preserved. The ventricular system is within normal limits without compression hydrocephalus. The basal cisterns are well maintained. Extra cranial soft tissue scalp contusion overlying the left occipital region. The visualized portions of the paranasal sinuses and mastoid air cells are well- pneumatized. No acute fractures. Cervical spine: Straightening of cervical spine which may positional. Vertebral body heights are well-maintained. Fracture to the cervical spine is not identified. Multilevel spondylotic change in cervical spine with degenerative disease greatest at C3-C4, C4-C5 and C5-C6. Mild bilateral facet arthropathy is also noted in the cervical spine. Visualized paraspinal soft tissues are unremarkable. IMPRESSION: 1. Extra cranial soft tissue scalp contusion overlying the left occipital thiago on without underlying osseous or intracranial abnormality. 2. Negative CT C-spine for acute traumatic injury. Electronically signed by: Mike Torrez MD (12/30/2020 8:51 PM) [facility] PROCEDURE: PELVIS Exam: Pelvis 1 view INDICATION: Pain, fall TECHNIQUE: Frontal view of the pelvis Comparisons: None FINDINGS: Bone mineralization is normal. No acute or healed fractures. Soft tissues are unremarkable. Joint spaces are well-maintained. IMPRESSION: No acute osseous abnormality. Electronically signed by: Mike Torrez MD (12/30/2020 9:34 PM) [facility] Course & Med Decision Making: Course & Med Decision Making Pertinent Labs and Imaging studies reviewed. (See chart for details) Elderly patient who is nonverbal at baseline presents via EMS with report of unwitnessed fall. Patient noted to have head contusion. CT head/cervical spine obtained with findings of scalp contusion without other acute signs of injury. EKG appears baseline. Labs obtained and posted to chart. Some microscopic hematuria noted on UA which is likely secondary to straight catheterization. Chest x-ray with chronic infiltrations. 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 In comparison to prior chest x-rays a ppears similar. Discussed case with patient's PCP- Dr. Goodwin. Dr. Goodwin in agreement that patient may return back to assisted. Patient stable for discharge back to assisted with outpatient follow-up with PCP. Discussed findings and plan with PCP- Dr. Goodwin, who acknowledges understanding and agreement. Alicia Disclaimer: Alicia Disclaimer: This electronic medical record was generated, in whole or in part, using a voice recognition dictation system. Departure Departure Impression: Primary Impression: Fall Qualified Codes: W19.XXXA - Unspecified fall, initial encounter Additional Impressions: Scalp contusion Qualified Codes: S00.03XA - Contusion of scalp, initial encounter Chronic lung disease Disposition: HOME / SELF CARE / HOMELESS Condition: STABLE Referrals: ROSALVA GOODWIN MD (PCP) Patient Instructions: Facial or Scalp Contusion, [id number], Fall Prevention in Hospitals ARI REYES DO December 30, 2020 22:18
[2020-12-30 22:45] VITALS: BP 111/63
== END 2020-12-30 23:09 | disposition home or self-care (01) ==
LOC: ER 20:00
DX: S00.03XA Contusion of scalp, initial encounter (principal); J98.4 Other disorders of lung; E11.9 Type 2 diabetes mellitus without complications; Z88.0 Allergy status to penicillin; Z91.041 Radiographic dye allergy status; Z88.1 Allergy status to other antibiotic agents; Z88.8 Allergy status to other drugs, medicaments and biological substances; W06.XXXA Fall from bed, initial encounter; Y93.89 Activity, other specified; Y92.89 Other specified places as the place of occurrence of the external cause; Y99.8 Other external cause status
CPT/HCPCS: 36415; 70450; 71045; 72125; 72170; 80053; 81001; 82553; 82962; 83605; 83735; 84484; 85025; 87086; 93005; 96360; 99285; J7030